=== PATIENT | female | born 1945 | race Caucasian/White ===

== ENCOUNTER → 2017-12-07 09:25 | Outpatient (CLI) | payer MEDICARE, SELFPAY ==
--- NOTE | 2017-12-07 09:30 | US_ITS ---
US transvaginal HISTORY: ITS.REASON: POST MENOPAUSAL BLEEDING,PELVIC PAIN ORDERING PHYSICIAN: Brenden Leary MD PATIENT AGE: 72 years COMPARISON: None FINDINGS: The uterus measures 4.7 x 2 x 3.4 cm with a combined endometrial thickness of 4 mm. Senescent calcification noted around the fundus of the uterus. There is a small amount fluid within the endometrial canal in the lower uterine segment. The left ovary is 1.7 x 1.4 cm. The right ovary is 1.3 x 0.6 cm. No adnexal mass. No cul-de-sac fluid. IMPRESSION: Senescent findings with small uterus and peripheral calcification along the fundus. Small amount fluid is in the lower canal.
== END ==
PROVIDERS: Family Provider Family Medicine; PCP Family Medicine; Visit Provider Family Medicine
DX: N95.0 Postmenopausal bleeding (principal); R10.2 Pelvic and perineal pain
CPT/HCPCS: 76830

== ENCOUNTER → 2017-12-18 11:33 | Outpatient (POV) | payer MEDICARE, SELFPAY ==
[2017-12-18 11:43] VITALS: BP 116/62; PULSE 61; RESP 18; O2SAT 94; BMI 30.9
--- NOTE | 2017-12-18 12:17 | HMH.PAINSOAP ---
[facility] Pain Management SOAP Note Subjective:: Patient is a very pleasant 72-year-old white female who presents today for follow-up after SI joint injections. Patient had 90% relief after her bilateral SI joint injections for 3 months. Patient states in the last 2 weeks her pain is began to return. Patient states that she gets sharp shooting pains in her low back that radiate at times into her thighs. Patient has tenderness over bilateral thighs. Patient has tried physical therapy in the past with no improvement. Patient denies leg weakness however when she does have a sacro-ileitis flareup she feels like legs become weaker. ROS General: no recent weight change, no fever, no sleep disturbances Respiratory: no cough, no shortness of air, no recurring pulmonary infections Cardiovascular/Peripheral Vascular: No chest pain, No palpitations, no edema, no shortness of breath. Gastrointestinal: no incontinence, normal bowel movements reported Genitourinary: no incontinence Musculoskeletal: Sacroiliitis Psychiatric: normal mood/ affect, Neurological: [denies weakness in extremities], [denies balance issues] Objective:: Physical Exam General: Alert and oriented x3, no acute distress, pleasant and cooperative, [on room air] Lungs: Resps E/U, Symmetrical chest expansion, Eyes: PERRL Musculoskeletal: Flexion and extension of lumbar spine somewhat guarded secondary to pain, deep tendon reflexes normal, strength in upper and lower extremities [5/5], slightly antalgic gait noted, positive Be's test bilaterally. Extreme point tenderness over bilateral SI joints Neurological: speech clear, customer care team coach equal, no gross sensory deficits Assessment:: Bilateral sacroiliitis Plan:: We will plan another round of bilateral SI joint injections. Patient has had 80-90% relief for several months after her last set. Patient has tried and failed physical therapy, anti-inflammatories, medications. I will Follow-up with this patient after her injections. This note was dictated using voice recognition software and may contain errors or omissions
--- NOTE | 2017-12-18 12:20 | P.CONS_ITS ---
[facility] Pain Management SOAP Note Subjective:: Patient is a very pleasant 72-year-old white female who presents today for follow-up after SI joint injections. Patient had 90% relief after her bilateral SI joint injections for 3 months. Patient states in the last 2 weeks her pain is began to return. Patient states that she gets sharp shooting pains in her low back that radiate at times into her thighs. Patient has tenderness over bilateral thighs. Patient has tried physical therapy in the past with no improvement. Patient denies leg weakness however when she does have a sacro- ileitis flareup she feels like legs become weaker. ROS General: no recent weight change, no fever, no sleep disturbances Respiratory: no cough, no shortness of air, no recurring pulmonary infections Cardiovascular/Peripheral Vascular: No chest pain, No palpitations, no edema, no shortness of breath. Gastrointestinal: no incontinence, normal bowel movements reported Genitourinary: no incontinence Musculoskeletal: Sacroiliitis Psychiatric: normal mood/ affect, Neurological: [denies weakness in extremities], [denies balance issues] Objective:: Physical Exam General: Alert and oriented x3, no acute distress, pleasant and cooperative, [ on room air] Lungs: Resps E/U, Symmetrical chest expansion, Eyes: PERRL Musculoskeletal: Flexion and extension of lumbar spine somewhat guarded secondary to pain, deep tendon reflexes normal, strength in upper and lower extremities [5/5], slightly antalgic gait noted, positive Be's test bilaterally. Extreme point tenderness over bilateral SI joints Neurological: speech clear, turret lathe machinist equal, no gross sensory deficits Assessment:: Bilateral sacroiliitis Plan:: We will plan another round of bilateral SI joint injections. Patient has had 80 -90% relief for several months after her last set. Patient has tried and failed physical therapy, anti-inflammatories, medications. I will Follow-up with this patient after her injections. This note was dictated using voice recognition software and may contain errors or omissions
== END ==
PROVIDERS: Family Provider Family Medicine; PCP Family Medicine; Visit Provider Clinical Nurse Specialist Family Health
DX: M46.1 Sacroiliitis, not elsewhere classified (principal)
CPT/HCPCS: 99212

== ENCOUNTER → 2018-01-02 16:24 | Outpatient (CLI) | payer MEDICARE, SELFPAY ==
--- NOTE | 2018-01-02 16:29 | MM_ITS ---
MM Dig screening mamm BI w/CAD CAD Screening COMPARISON: Digital mammograms 12/28/2015 and 12/29/2016 INDICATION: Is a history of breast cancer patient's aunt. There has been previous cyst aspiration left breast. TECHNIQUE: Standard CC and MLO images were obtained. R2 CAD reviewed. FINDINGS: The breasts are composed primarily of fat with scattered fibroglandular densities throughout both breasts. There are couple benign-appearing calcifications in each breast. There is a mole marker on each breast. There is no suspicious lesion and no suspicious microcalcifications. IMPRESSION: Fiber fatty parenchyma no suspicious lesion seen BI-RADS Category: 2 Benign Finding(s) RECOMMENDED FOLLOW-UP: 1YR - 1 YEAR FOLLOW-UP (A letter has been sent to the patient regarding results of the study.)
== END ==
PROVIDERS: Family Provider Family Medicine; PCP Family Medicine; Visit Provider Family Medicine
DX: Z12.31 Encounter for screening mammogram for malignant neoplasm of breast (principal)
CPT/HCPCS: 77067

== ENCOUNTER 2018-01-05 13:08 | Day surgery (SDC) | payer MEDICARE, SELFPAY ==
[2018-01-05 13:17] VITALS: BP 123/51; PULSE 70; RESP 20; TEMP 36.1; O2SAT 97; BMI 29.7
[2018-01-05 14:22] VITALS: BP 125/79; PULSE 69; RESP 18
--- NOTE | 2018-01-05 14:22 | HMH.PMPROC ---
- Procedure Date: 01/05/18 Time: 14:22 Anesthesiologist:: Pranay Dunn MD Complications:: None Pre-procedure Diagnosis:: Sacroiliitis Post-procedure Diagnosis:: Same Indications for Procedure:: This patient is a pleasant 72-year-old white female who we are treating for bilateral hip pain. She got 90% relief after previous bilateral SI joint injections for 3 months. Her pain is just now started to return over both hips. We will do repeat bilateral SI joint injections under fluoroscopy today. Procedure Details:: B/L SI joint injection under fluoroscopy Informed consent was obtained and the risks and benefits of the procedure was explained to the patient. The patient was taken to the procedure room and placed prone on the procedure table. The patient was prepped using ChloraPrep. The skin and subcutaneous tissues overlying the SI joints were anesthetized using lidocaine. I placed a 22-gauge needle first in the left SI joint and second in the right SI joint. Needle placement was confirmed with dye. After this we injected 5 mL bupivacaine 0.25% and Depo-Medrol 40 mg into each SI joint. Patient tolerated the procedure well with no complication. Plan and Disposition:: We will follow-up with her in 2 weeks. We will reevaluate her symptoms at that time.
[2018-01-05 14:24] VITALS: BP 140/77; PULSE 66; RESP 18
[2018-01-05 14:34] VITALS: BP 139/58; PULSE 64; O2SAT 94
== END 2018-01-05 14:35 | disposition home or self-care (01) ==
LOC: SC.PAINP 13:09
PROVIDERS: Family Provider Family Medicine; PCP Family Medicine; Visit Provider Anesthesiology
DX: M46.1 Sacroiliitis, not elsewhere classified (principal)
CPT/HCPCS: 27096; G0260; J1030

== ENCOUNTER → 2018-01-22 10:25 | Outpatient (POV) | payer MEDICARE, SELFPAY ==
[2018-01-22 11:03] VITALS: BP 150/72; PULSE 71; RESP 18; TEMP 36.4; O2SAT 96; BMI 29.7
--- NOTE | 2018-01-22 12:47 | HMH.PAINSOAP ---
[facility] Pain Management SOAP Note Subjective:: She is a pleasant 72-year-old white female who presents today after bilateral SI joint injections. Patient states that she had several weeks relief. Patient is having increased signal left SI joint pain along with left piriformis pain. Patient is still doing well after her lumbar epidural steroid injections. Patient is interested in setting up some injections in the future. Patient states that her pain right now is a 3 out of 10 however when she is working in the house it does become worse. ROS General: no recent weight change, no fever, no sleep disturbances Respiratory: no cough, no shortness of air, no recurring pulmonary infections Cardiovascular/Peripheral Vascular: No chest pain, No palpitations, no edema, no shortness of breath. Gastrointestinal: no incontinence, normal bowel movements reported Genitourinary: no incontinence Musculoskeletal: Back pain, bilateral SI joint pain, left piriformis pain Psychiatric: normal mood/ affect, Neurological: [denies weakness in extremities], [denies balance issues] Objective:: Physical Exam General: Alert and oriented x3, no acute distress, pleasant and cooperative, [on room air] Lungs: Resps E/U, Symmetrical chest expansion, Eyes: PERRL Musculoskeletal: Flexion and extension of lumbar spine somewhat guarded secondary to pain, deep tendon reflexes normal, strength in upper and lower extremities [5/5], slightly antalgic gait noted, extreme point tenderness over left SI and left piriformis. Positive Be's test on the left side Neurological: speech clear, medical billing associate equal, no gross sensory deficits Assessment:: Piriformis syndrome, sacroiliitis, degenerative disc disease of the lumbar spine Plan:: We will schedule a left SI joint injection along with a left piriformis injection I believe that this would be beneficial for the patient. Patient has had good relief with injections in the past. Of note she is being checked for uterine cancer. We will continue to monitor this. Patient's tried and failed physical therapy, anti-inflammatories, medications. This note was dictated using voice recognition software and may contain errors or omissions
--- NOTE | 2018-01-22 12:50 | P.CONS_ITS ---
[facility] Pain Management SOAP Note Subjective:: She is a pleasant 72-year-old white female who presents today after bilateral SI joint injections. Patient states that she had several weeks relief. Patient is having increased signal left SI joint pain along with left piriformis pain. Patient is still doing well after her lumbar epidural steroid injections. Patient is interested in setting up some injections in the future. Patient states that her pain right now is a 3 out of 10 however when she is working in the house it does become worse. ROS General: no recent weight change, no fever, no sleep disturbances Respiratory: no cough, no shortness of air, no recurring pulmonary infections Cardiovascular/Peripheral Vascular: No chest pain, No palpitations, no edema, no shortness of breath. Gastrointestinal: no incontinence, normal bowel movements reported Genitourinary: no incontinence Musculoskeletal: Back pain, bilateral SI joint pain, left piriformis pain Psychiatric: normal mood/ affect, Neurological: [denies weakness in extremities], [denies balance issues] Objective:: Physical Exam General: Alert and oriented x3, no acute distress, pleasant and cooperative, [ on room air] Lungs: Resps E/U, Symmetrical chest expansion, Eyes: PERRL Musculoskeletal: Flexion and extension of lumbar spine somewhat guarded secondary to pain, deep tendon reflexes normal, strength in upper and lower extremities [5/5], slightly antalgic gait noted, extreme point tenderness over left SI and left piriformis. Positive Be's test on the left side Neurological: speech clear, computer equipment repairer equal, no gross sensory deficits Assessment:: Piriformis syndrome, sacroiliitis, degenerative disc disease of the lumbar spine Plan:: We will schedule a left SI joint injection along with a left piriformis injection I believe that this would be beneficial for the patient. Patient has had good relief with injections in the past. Of note she is being checked for uterine cancer. We will continue to monitor this. Patient's tried and failed physical therapy, anti-inflammatories, medications. This note was dictated using voice recognition software and may contain errors or omissions
== END ==
PROVIDERS: Family Provider Family Medicine; PCP Family Medicine; Visit Provider Clinical Nurse Specialist Family Health
DX: G57.00 Lesion of sciatic nerve, unspecified lower limb (principal); M46.1 Sacroiliitis, not elsewhere classified
CPT/HCPCS: 99212

== ENCOUNTER → 2018-02-19 15:15 | Outpatient (POV) | payer MEDICARE, SELFPAY ==
[2018-02-19 15:23] VITALS: BP 126/42; PULSE 71; RESP 18; TEMP 36.7; O2SAT 98; BMI 29.7
--- NOTE | 2018-02-19 15:28 | HMH.PAINSOAP ---
[facility] Pain Management SOAP Note Subjective:: Patient is a pleasant 72-year-old white female who presents today for follow-up after left SI and left piriformis injection. Patient states she is 90% better. Patient rates her pain a 1 out of 10 today. She states that she has had a slight increase after her birthday alliance party that she hosted yesterday. Patient is doing well overall. Patient states she would like to follow-up on an as-needed basis. ROS General: no recent weight change, no fever, no sleep disturbances Respiratory: no cough, no shortness of air, no recurring pulmonary infections Cardiovascular/Peripheral Vascular: No chest pain, No palpitations, no edema, no shortness of breath. Gastrointestinal: no incontinence, normal bowel movements reported Genitourinary: no incontinence Musculoskeletal: Piriformis pain, left SI joint pain Psychiatric: normal mood/ affect Neurological: [denies weakness in extremities], [denies balance issues] Objective:: Physical Exam General: Alert and oriented x3, no acute distress, pleasant and cooperative, [on room air] Lungs: Resps E/U, Symmetrical chest expansion, Eyes: PERRL Musculoskeletal: Flexion and extension of lumbar spine somewhat guarded secondary to pain, deep tendon reflexes normal, strength in upper and lower extremities [5/5], slightly antalgic gait noted, tenderness over the left SI joint and left piriformis. Neurological: speech clear, associate professor of geography equal, no gross sensory deficits Assessment:: Sacroiliitis and piriformis syndrome, degenerative disc disease of the lumbar spine with lumbar radiculopathy Plan:: We will follow-up with this patient on an as-needed basis. Patient will call us if she feels like she needs another injection. This note was dictated using voice recognition software and may contain errors or omissions
== END ==
PROVIDERS: Family Provider Family Medicine; PCP Family Medicine; Visit Provider Clinical Nurse Specialist Family Health
DX: G57.00 Lesion of sciatic nerve, unspecified lower limb (principal)
CPT/HCPCS: 99212

== ENCOUNTER → 2018-05-25 08:05 | Outpatient (CLI) | payer MEDICARE, SELFPAY ==
--- NOTE | 2018-05-25 08:14 | CT_ITS ---
CT lung screening EXAM: CT LUNG LOW DOSE WO CONTRAST HISTORY: 72 year old female with history of tobacco abuse/nicotine dependence prominent with 8 years ago, asymptomatic ITS.REASON: CURRENT TOBACOO USE ORDERING PHYSICIAN: Roly Gilbert MD PATIENT AGE: 72 years COMPARISON: None TECHNIQUE: The exam was performed on a [employer] Speed [address] scanner using 2.90 mGy CTDI. A low dose helical CT CHEST was performed on a multi-detector scanner. All CT scans at the facility use one or more dose reduction, viz: automated exposure control, ma/kV adjustment per patient size (including targeted exams where dose is matched to indication, i.e. head), or iterative reconstruction technique. The LDCT was performed in a facility that meets the criteria for the screening program. Data regarding this exam was submitted to ACR which is an approved registry. The order for this exam indicates that it came as a result of a lung cancer screening counseling shard decision-making visit that included all the elements required of such a visit including smoking cessation. The radiologist interpreting this exam meets the CMS criteria for the LDCT lung cancer screening program. The exam is reported using the Lung-RADS classification scale and reported to the ACR registry. NOTE: This study was performed for the specific purposes of lung cancer screening and is not an alternative to diagnostic chest CT. RADIATION DOSE: CTDI vol(CT dose Index-volume) = 2.90mG DLP (Dose Length Product) = 106.95 mGcm FINDINGS: There are centrilobular emphysematous changes along with hyperinflation and bronchial thickening consistent with obstructive chronic bronchitis. There is evidence of old granulomatous disease. Within the apex there are irregular opacities measuring up to 10 x 7 mm on the right probably related to scarring. 3 mm right perihilar nodule is present. 3 mm nodule right upper lobe superiorly and posteriorly. IMPRESSION: 1. Lung RADS Category: 3, probably benign 2. Other findings: Centrilobular emphysema, old granulomatous disease RECOMMENDATIONS: 6 month LDCT follow-up
== END ==
PROVIDERS: Family Provider Family Medicine; PCP Family Medicine; Visit Provider Family Medicine
DX: Z12.2 Encounter for screening for malignant neoplasm of respiratory organs (principal); Z87.891 Personal history of nicotine dependence

== ENCOUNTER → 2018-06-25 11:25 | Outpatient (POV) | payer MEDICARE, SELFPAY ==
[2018-06-25 12:09] VITALS: BP 132/55; PULSE 63; RESP 18; O2SAT 98; BMI 29.2
--- NOTE | 2018-06-25 12:55 | HMH.PAINSOAP ---
[facility] Pain Management SOAP Note Subjective:: Patient is a pleasant 72-year-old white female who presents today for follow-up. Patient is having increased bilateral SI joint pain. Patient has had SI joint injections in the past and states that she gets up to 90% relief for 3-5 months. Patient would like to repeat this. Patient states otherwise she is overall doing well.. ROS General: no recent weight change, no fever, no sleep disturbances Respiratory: no cough, no shortness of air, no recurring pulmonary infections Cardiovascular/Peripheral Vascular: No chest pain, No palpitations, no edema, no shortness of breath. Gastrointestinal: no incontinence, normal bowel movements reported Genitourinary: no incontinence Musculoskeletal: SI joint pain Psychiatric: normal mood/ affect Neurological: [denies weakness in extremities], [denies balance issues] Objective:: Physical Exam General: Alert and oriented x3, no acute distress, pleasant and cooperative, [on room air] Lungs: Resps E/U, Symmetrical chest expansion, Eyes: PERRL Musculoskeletal: Flexion and extension of lumbar spine somewhat guarded secondary to pain, deep tendon reflexes normal, strength in upper and lower extremities [5/5], slightly antalgic gait noted, positive Be's test bilaterally, extreme point tenderness over bilateral SI joint Neurological: speech clear, deposit clerk equal, no gross sensory deficits Assessment:: Sacroiliitis Plan:: We will schedule bilateral SI joint injections for the patient. Patient does well with these for several months. Patient is not on any anticoagulation therapy. Patient's tried and failed physical therapy however she is still doing a home stretching routine. We will and to schedule these injections every 4 months after her follow-up. This note was dictated using voice recognition software and may contain errors or omissions
--- NOTE | 2018-06-25 12:58 | P.CONS_ITS ---
[facility] Pain Management SOAP Note Subjective:: Patient is a pleasant 72-year-old white female who presents today for follow-up. Patient is having increased bilateral SI joint pain. Patient has had SI joint injections in the past and states that she gets up to 90% relief for 3-5 months. Patient would like to repeat this. Patient states otherwise she is overall doing well.. ROS General: no recent weight change, no fever, no sleep disturbances Respiratory: no cough, no shortness of air, no recurring pulmonary infections Cardiovascular/Peripheral Vascular: No chest pain, No palpitations, no edema, no shortness of breath. Gastrointestinal: no incontinence, normal bowel movements reported Genitourinary: no incontinence Musculoskeletal: SI joint pain Psychiatric: normal mood/ affect Neurological: [denies weakness in extremities], [denies balance issues] Objective:: Physical Exam General: Alert and oriented x3, no acute distress, pleasant and cooperative, [on room air] Lungs: Resps E/U, Symmetrical chest expansion, Eyes: PERRL Musculoskeletal: Flexion and extension of lumbar spine somewhat guarded secondary to pain, deep tendon reflexes normal, strength in upper and lower extremities [5/5], slightly antalgic gait noted, positive Be's test bilaterally, extreme point tenderness over bilateral SI joint Neurological: speech clear, cook night equal, no gross sensory deficits Assessment:: Sacroiliitis Plan:: We will schedule bilateral SI joint injections for the patient. Patient does well with these for several months. Patient is not on any anticoagulation therapy. Patient's tried and failed physical therapy however she is still doing a home stretching routine. We will and to schedule these injections every 4 months after her follow-up. This note was dictated using voice recognition software and may contain errors or omissions
== END ==
PROVIDERS: Family Provider Family Medicine; PCP Family Medicine; Visit Provider Clinical Nurse Specialist Family Health
DX: M46.1 Sacroiliitis, not elsewhere classified (principal)
CPT/HCPCS: 99213

== ENCOUNTER → 2018-08-14 09:39 | Outpatient (POV) | payer MEDICARE, SELFPAY ==
[2018-08-14 09:50] VITALS: BP 126/50; PULSE 59; RESP 18; O2SAT 98; BMI 29.7
--- NOTE | 2018-08-14 12:32 | HMH.PAINSOAP ---
[facility] Pain Management SOAP Note Subjective:: Patient is a pleasant 73-year-old white female who presents today for a side joint injection follow-up. Patient had good relief until last week. Patient states that overall she is doing well however she is having quite a bit of left hip pain. Patient has tried and failed physical therapy and anti-inflammatory however she is continuing a home stretching program. She rates her pain today about a 5 out of 10 in her left side. ROS General: no recent weight change, no fever, no sleep disturbances Respiratory: no cough, no shortness of air, no recurring pulmonary infections Cardiovascular/Peripheral Vascular: No chest pain, No palpitations, no edema, no shortness of breath. Gastrointestinal: no incontinence, normal bowel movements reported Genitourinary: no incontinence Musculoskeletal: Hip pain, SI joint pain Psychiatric: normal mood/ affect Neurological: [denies weakness in extremities], [denies balance issues] Objective:: Physical Exam General: Alert and oriented x3, no acute distress, pleasant and cooperative, [on room air] Lungs: Resps E/U, Symmetrical chest expansion, Eyes: PERRL Musculoskeletal: Flexion and extension of lumbar spine somewhat guarded secondary to pain, deep tendon reflexes normal, strength in upper and lower extremities [5/5], slightly antalgic gait noted, positive Be's test on the left side, extreme point tenderness over left greater trochanteric bursa Neurological: speech clear, exchange specialist equal, no gross sensory deficits Assessment:: Sacroiliitis, bursitis Plan:: We will left SI joint injection left greater trochanteric bursa injection for the patient. If the patient does not get much relief from this. We may get an MRI to help determine any low back pathology for the patient. This note was dictated using voice recognition software and may contain errors or omissions
--- NOTE | 2018-08-14 12:38 | P.CONS_ITS ---
[facility] Pain Management SOAP Note Subjective:: Patient is a pleasant 73-year-old white female who presents today for a side joint injection follow-up. Patient had good relief until last week. Patient states that overall she is doing well however she is having quite a bit of left hip pain. Patient has tried and failed physical therapy and anti-inflammatory however she is continuing a home stretching program. She rates her pain today about a 5 out of 10 in her left side. ROS General: no recent weight change, no fever, no sleep disturbances Respiratory: no cough, no shortness of air, no recurring pulmonary infections Cardiovascular/Peripheral Vascular: No chest pain, No palpitations, no edema, no shortness of breath. Gastrointestinal: no incontinence, normal bowel movements reported Genitourinary: no incontinence Musculoskeletal: Hip pain, SI joint pain Psychiatric: normal mood/ affect Neurological: [denies weakness in extremities], [denies balance issues] Objective:: Physical Exam General: Alert and oriented x3, no acute distress, pleasant and cooperative, [on room air] Lungs: Resps E/U, Symmetrical chest expansion, Eyes: PERRL Musculoskeletal: Flexion and extension of lumbar spine somewhat guarded secondary to pain, deep tendon reflexes normal, strength in upper and lower extremities [5/5], slightly antalgic gait noted, positive Be's test on the left side, extreme point tenderness over left greater trochanteric bursa Neurological: speech clear, calibration laboratory technician equal, no gross sensory deficits Assessment:: Sacroiliitis, bursitis Plan:: We will left SI joint injection left greater trochanteric bursa injection for the patient. If the patient does not get much relief from this. We may get an MRI to help determine any low back pathology for the patient. This note was dictated using voice recognition software and may contain errors or omissions
== END ==
PROVIDERS: PCP Family Medicine; Visit Provider Clinical Nurse Specialist Family Health
DX: M46.1 Sacroiliitis, not elsewhere classified (principal); M71.9 Bursopathy, unspecified
CPT/HCPCS: 99213

== ENCOUNTER → 2018-09-25 09:51 | Outpatient (POV) | payer MEDICARE, SELFPAY ==
[2018-09-25 10:31] VITALS: BP 128/43; PULSE 60; RESP 18; O2SAT 99; BMI 29.2
--- NOTE | 2018-09-25 10:33 | HMH.PAINSOAP ---
[facility] Pain Management SOAP Note Subjective:: Patient is a pleasant 73-year-old white female who presents today after left SI joint injection and left greater trochanteric bursa injection. She rates her pain a 0 out of 10 today. Patient has been getting these injections every 2 months and has done well with this. ROS General: no recent weight change, no fever, no sleep disturbances Respiratory: no cough, no shortness of air, no recurring pulmonary infections Cardiovascular/Peripheral Vascular: No chest pain, No palpitations, no edema, no shortness of breath. Gastrointestinal: no incontinence, normal bowel movements reported Genitourinary: no incontinence Musculoskeletal: Back pain, SI joint pain Psychiatric: normal mood/ affect, Neurological: [denies weakness in extremities], [denies balance issues] Objective:: Physical Exam General: Alert and oriented x3, no acute distress, pleasant and cooperative, [on room air] Lungs: Resps E/U, Symmetrical chest expansion, Eyes: PERRL Musculoskeletal: Flexion and extension of lumbar spine somewhat guarded secondary to pain, deep tendon reflexes normal, strength in upper and lower extremities [5/5], antalgic gait noted, left Be's test positive, point tenderness over the greater trochanteric bursa on the left side Neurological: speech clear, dispatch clerk equal, no gross sensory deficits Assessment:: Sacroiliitis, bursitis Plan:: We will see the patient back in 2-1/2 months and give her another left SI joint injection left greater trochanteric bursa. Patient's been instructed to call the office if she has any issues prior to her next appointment. This note was dictated using voice recognition software and may contain errors or omissions
--- NOTE | 2018-09-25 10:36 | P.CONS_ITS ---
[facility] Pain Management SOAP Note Subjective:: Patient is a pleasant 73-year-old white female who presents today after left SI joint injection and left greater trochanteric bursa injection. She rates her pain a 0 out of 10 today. Patient has been getting these injections every 2 months and has done well with this. ROS General: no recent weight change, no fever, no sleep disturbances Respiratory: no cough, no shortness of air, no recurring pulmonary infections Cardiovascular/Peripheral Vascular: No chest pain, No palpitations, no edema, no shortness of breath. Gastrointestinal: no incontinence, normal bowel movements reported Genitourinary: no incontinence Musculoskeletal: Back pain, SI joint pain Psychiatric: normal mood/ affect, Neurological: [denies weakness in extremities], [denies balance issues] Objective:: Physical Exam General: Alert and oriented x3, no acute distress, pleasant and cooperative, [on room air] Lungs: Resps E/U, Symmetrical chest expansion, Eyes: PERRL Musculoskeletal: Flexion and extension of lumbar spine somewhat guarded secondary to pain, deep tendon reflexes normal, strength in upper and lower extremities [5/5], antalgic gait noted, left Be's test positive, point tenderness over the greater trochanteric bursa on the left side Neurological: speech clear, hand shaper equal, no gross sensory deficits Assessment:: Sacroiliitis, bursitis Plan:: We will see the patient back in 2-1/2 months and give her another left SI joint injection left greater trochanteric bursa. Patient's been instructed to call the office if she has any issues prior to her next appointment. This note was dictated using voice recognition software and may contain errors or omissions
== END ==
PROVIDERS: PCP Family Medicine; Visit Provider Clinical Nurse Specialist Family Health
DX: M46.1 Sacroiliitis, not elsewhere classified (principal); M71.9 Bursopathy, unspecified
CPT/HCPCS: 99213

== ENCOUNTER → 2018-10-15 13:22 | Outpatient (CLI) | payer MEDICARE, SELFPAY ==
--- NOTE | 2018-10-15 13:25 | MR_ITS ---
MR lumbar spine wo con, No MR 3-d myelogram/MRCP HISTORY: Low back pain with left leg pain and tingling ITS.REASON: LUMBAR SPINAL STENOSIS ORDERING PHYSICIAN: Roly Gilbert MD PATIENT AGE: 73 years Comparison: 12/27/2013 TECHNIQUE: Standard multiplanar multiecho sequences are performed without contrast. 3-D MIP and myelographic images are also rendered and reviewed FINDINGS: There is normal alignment. The spinal cord in that the L1-L2 level. In the lower thoracic spine there is degenerative disc disease at T11-T12 with minimal bulging disc with mild kyphosis. A Schmorl's node is present along the superior endplate of T11. A Schmorl's node is present along the superior endplate of T12. There is mild chronic wedging of T11 and T12. Minimal bulging disc at T12-L1. L1-L2: Unremarkable. L2-L3: Minimal concentric bulging disc along with facet and ligamentum flavum hypertrophy with mild bilateral lateral recess and mild right foraminal narrowing. L3-L4: Unremarkable. L4-L5: Mild concentric bulging disc with minimal right paracentral disc protrusion. Moderate facet and ligamentum flavum hypertrophy noted with moderate bilateral lateral recess and foraminal narrowing slightly greater on the left. L5-S1: Mild facet hypertrophic change with moderate left foraminal narrowing. No bony canal stenosis or extruded herniated disc and no significant change compared to the previous exam IMPRESSION: 1. Degenerative disc disease at T11-T12 with bulging disc and kyphosis with chronic wedging of T11 and T12. Mild bulging disc at T12-L1 2. L2-L3: Minimal concentric bulging disc along with facet and ligamentum flavum hypertrophy with mild bilateral lateral recess and mild right foraminal narrowing 3. Mild concentric bulging disc at L4-L5 with minimal right paracentral disc protrusion. Moderate facet and ligamentum flavum hypertrophy noted with moderate bilateral lateral recess and foraminal narrowing slightly greater on the left. Moderate left-sided foraminal narrowing at L5-S1 from facet hypertrophic change 4. No disc herniation or canal stenosis
== END ==
PROVIDERS: PCP Family Medicine; Visit Provider Family Medicine
DX: M48.061 Spinal stenosis, lumbar region without neurogenic claudication (principal)
CPT/HCPCS: 72148; 76376

== ENCOUNTER → 2018-11-28 13:52 | Outpatient (CLI) | payer MEDICARE, SELFPAY ==
--- NOTE | 2018-11-28 14:28 | CT_ITS ---
CT lung screening EXAM: CT LUNG LOW DOSE WO CONTRAST HISTORY: 30 pack-year smoking history asymptomatic for lung cancer ITS.REASON: TOBACCO USE ORDERING PHYSICIAN: Roly Gilbert MD PATIENT AGE: 73 years COMPARISON: 05/25/2018 TECHNIQUE: The exam was performed on a GE Light Speed [address] scanner using 2.90 mGy CTDI. A low dose helical CT CHEST was performed on a multi-detector scanner. All CT scans at the facility use one or more dose reduction, viz: automated exposure control, ma/kV adjustment per patient size (including targeted exams where dose is matched to indication, i.e. head), or iterative reconstruction technique. The LDCT was performed in a facility that meets the criteria for the screening program. Data regarding this exam was submitted to ACR which is an approved registry. The order for this exam indicates that it came as a result of a lung cancer screening counseling shard decision-making visit that included all the elements required of such a visit including smoking cessation. The radiologist interpreting this exam meets the CMS criteria for the LDCT lung cancer screening program. The exam is reported using the Lung-RADS classification scale and reported to the ACR registry. NOTE: This study was performed for the specific purposes of lung cancer screening and is not an alternative to diagnostic chest CT. RADIATION DOSE: CTDI vol(CT dose Index-volume) = 2.90mG DLP (Dose Length Product) = 102.00 mGcm FINDINGS: Centrilobular emphysematous changes. Scattered calcified granulomas are noted. No new nodules. No malignant appearing nodules. There is hyperinflation with bronchial thickening consistent with COPD. There is a small hiatal hernia. IMPRESSION: 1. Lung RADS Category: 2, benign 2. Other findings: Centrilobular emphysema, old granulomatous disease RECOMMENDATIONS: 12 month LDCT follow-up
== END ==
PROVIDERS: PCP Family Medicine; Visit Provider Family Medicine
DX: Z12.2 Encounter for screening for malignant neoplasm of respiratory organs (principal); Z87.891 Personal history of nicotine dependence; R91.8 Other nonspecific abnormal finding of lung field

== ENCOUNTER → 2019-01-07 08:15 | Outpatient (CLI) | payer MEDICARE, SELFPAY ==
--- NOTE | 2019-01-07 09:00 | MM_ITS ---
MM Dig screening mamm BI w/CAD CAD Screening INDICATION: There is a history of breast cancer patient's aunt. There is been previous cyst aspiration left breast. ORDERING PHYSICIAN: Roly Gilbert MD PATIENT AGE: 73 years COMPARISON: And 12/29/2016 TECHNIQUE: Standard CC and MLO images were obtained. R2 CAD reviewed. FINDINGS: The breasts are composed primarily of fat. There is minimal scattered fibroglandular densities in each breast. There is a subtle and questionable area of asymmetric density just deep to the nipple right breast and additional spot compression view was obtained and it appears to compress out and likely secondary to asymmetric glandular tissue. There are couple benign appearing microtest stations in each breast. There is no suspicious lesion and there are no suspicious microcalcifications. There is minimal vascular calcification in each breast. IMPRESSION: Fatty type breast parenchyma with no suspicious lesion seen BI-RADS Category: 2 Benign Finding(s) RECOMMENDED FOLLOW-UP: 1YR - 1 YEAR FOLLOW-UP (A letter has been sent to the patient regarding results of the study.)
== END ==
PROVIDERS: PCP Family Medicine; Visit Provider Family Medicine
DX: Z12.31 Encounter for screening mammogram for malignant neoplasm of breast (principal)
CPT/HCPCS: 77067

== ENCOUNTER → 2019-12-19 07:46 | Outpatient (CLI) | payer MEDICARE, SELFPAY ==
--- NOTE | 2019-12-19 08:30 | MM_ITS ---
PROCEDURE: MM DIG SCREENING MAMM BI W/CAD BILATERAL DIGITAL BREAST TOMOSYNTHESIS INCLUDED Patient Age:74Y CLINICAL INDICATION: SCREENING 74-year-old. No hormones but no new complaints. Noncontributory family history. Previous left breast cyst aspiration COMPARISON: [facility] DIGITAL MAMM-SCREEN BILATERAL from 12/19/2011 [facility] DIGITAL MAMM-SCREEN BILATERAL from 12/13/2012 [facility] DIG MAMM-SCREEN FLOR from 12/18/2013 [facility] DIG MAMM-SCREEN FLOR from 12/23/2014 [facility] DIG MAMM-SCREEN FLOR from 12/28/2015 [facility] DIG MAMM-SCREEN FLOR W/CAD from 12/29/2016 [facility] MM Dig screening mamm BI w/CAD from 01/02/2018 DIG MAMM-SCREEN FLOR from 01/07/2019 TECHNIQUE: Standard CC and MLO images were obtained. R2 CAD reviewed. Bilateraltomosynthesis included FINDINGS: Lower density breast with minimal residual fibroglandular elements, and generalized fatty replacement No new dominant or suspicious mass. Both right and left breast appear stable when compared to multiple previous studies with no significant new area of concern either breast. Bilateral follow-up 1 year recommended Left breast IMPRESSION: Stable bilateral mammogram. Low-density breast with no new areas of concern. Bilateral follow-up 1 year. On BI-RAD Category: 1 Negative FOLLOW-UP: 1YR 1 Year Follow-up (A letter has been sent to the patient regarding results of the study.) Dictated by: Mac Linares MD 12/24/2019 08:41 Electronically signed by Mac Linares MD in [place] 12/24/2019 08:41
== END ==
PROVIDERS: PCP Family Medicine; Visit Provider Family Medicine
DX: Z12.31 Encounter for screening mammogram for malignant neoplasm of breast (principal)
CPT/HCPCS: 77063; 77067

== ENCOUNTER → 2020-09-14 10:28 | Outpatient (CLI) | payer MEDICARE, SELFPAY | PROVIDERS: PCP Family Medicine; Visit Provider Specialist | DX: R42 Dizziness and giddiness (principal) | CPT/HCPCS: 93225; 93226 ==

== ENCOUNTER → 2020-12-25 14:48 | Outpatient (CLI) | payer MEDICARE, SELFPAY ==
--- NOTE | 2020-12-25 14:54 | MM_ITS ---
PROCEDURE: MM DIG SCREENING MAMM BI W/CAD Digital Breast Tomosynthesis Included CLINICAL INDICATION: SCREENING There is a history of breast cancer patient's maternal aunt. There has been a previous cyst aspiration left breast with benign findings. COMPARISON: [facility] MM Dig screening mamm BI w/CAD from 01/02/2018 MG DIG MAMM-SCREEN FLOR from 01/07/2019 MG MM DIG SCREENING MAMM BI W/CAD from 12/19/2019 TECHNIQUE: Standard CC and MLO images and 3D Tomosynthesis was obtained. R2 CAD reviewed. FINDINGS: Scattered fibroglandular densities are seen in both breasts on a background of fatty breast parenchyma. There is faint arterial calcification in each breast. There is a mole marker left breast. There are couple of benign-appearing microcalcifications in each breast. There is faint arterial calcification in each breast. CAD markings on each breast or due to arterial calcification. There is no suspicious lesion and no suspicious microcalcifications. The nipples are slightly inverted bilaterally but this has been noted previously. IMPRESSION: Fibrofatty parenchyma with no suspicious lesions seen BI-RAD Category: 2 Benign Finding(s) FOLLOW-UP: 1YR 1 Year Follow-up (A letter has been sent to the patient regarding results of the study.) Dictated by: Dr. Woodrow Rosa MD 01/02/2021 10:30 Dr. Woodrow Rosa MD in [place] 01/02/2021 10:30
== END ==
PROVIDERS: PCP Family Medicine; Visit Provider Family Medicine
DX: Z12.31 Encounter for screening mammogram for malignant neoplasm of breast (principal)
CPT/HCPCS: 77063; 77067

== ENCOUNTER → 2021-03-02 15:58 | Outpatient (CLI) | payer MEDICARE, SELFPAY ==
--- NOTE | 2021-03-02 16:02 | XR_ITS ---
PROCEDURE: XR CERVICAL SPINE 5V CLINICAL INDICATION: CERVICAL SPINE ARTHRITIS COMPARISON: No exams were available for comparison FINDINGS: No fracture or dislocation. Degenerative disc disease is present at C5-C6 and C6-C7. Facet and uncovertebral hypertrophy is present causing narrowing of the foramen on the right at C3-C4 C4-C5 and on the left at C3-C4 and C4-C5. Carotid artery stent is noted left. Facet hypertrophic changes are present greater on the left from C3-C6. No acute fracture or dislocation. There is 2 mm anterolisthesis C4 on C5. Other findings:None. IMPRESSION: Cervical spondylosis as described above. Dictated by: Cuco Ferrara MD 03/02/2021 17:13 Cuco Ferrara MD in [place] 03/02/2021 17:13
== END ==
PROVIDERS: PCP Family Medicine; Visit Provider Family Medicine
DX: M47.812 Spondylosis without myelopathy or radiculopathy, cervical region (principal)
CPT/HCPCS: 72050

== ENCOUNTER → 2021-03-18 09:29 | Outpatient (CLI) | payer MEDICARE, SELFPAY ==
--- NOTE | 2021-03-18 | ECG_ITS ---
APPROVED REPORT Exam: Resting ECG HR:52 bpm ECG Measurements Heart Rate 52 AXES MA 158 P 71 QRSd 128 QRS 55 QT 446 T 39 QTc 414 Conclusion Sinus bradycardia with sinus arrhythmia Right bundle branch block Abnormal ECG Electronically signed by : Luis Carlos Watts, 03/19/2021 10:23:31
== END ==
PROVIDERS: PCP Family Medicine; Visit Provider Family Medicine
DX: I49.9 Cardiac arrhythmia, unspecified (principal)
CPT/HCPCS: 93005; 93225; 93226

== ENCOUNTER 2021-04-12 13:59 | Emergency (ER) | payer MEDICARE, SELFPAY ==
[2021-04-12 13:59] VITALS: BP 139/83; PULSE 64; RESP 18; O2SAT 93; BMI 31.1
--- NOTE | 2021-04-12 14:01 | ECG_ITS ---
APPROVED REPORT Exam: Resting ECG HR:63 bpm ECG Measurements Heart Rate 63 AXES NJ 148 P 70 QRSd 118 QRS -25 QT 472 T 45 QTc 483 Conclusion Normal sinus rhythm Right bundle branch block Abnormal ECG Electronically signed by : Luis Carlos Watts, 04/12/2021 17:31:10
--- NOTE | 2021-04-12 14:02 | HMH.EDGENADL ---
ED Disposition Clinical Impression: Polymyalgia rheumatica Disposition: Home, Self-Care Condition on Discharge: Good Referrals: Roly Gilbert MD [Primary Care Provider] - (2-3 days) Time of Disposition: 16:22 - Critical Care Critical Care Time: No Attestation: On , the high probability of a clinically significant, sudden or life threatening deterioration of the following system(s) required my full and direct attention, intervention and personal management. The time I documented below is in addition to time spent performing reported procedures but includes the following listed in this critical care notation. Medical Decision Making - Medical Records Medical records reviewed: Yes: I reviewed the patient's medical records. - Everardo Inquiry Pt receiving controlled substance: No Vital Signs: 04/12/21 13:59 04/12/21 14:15 04/12/21 14:30 Temperature 97.7 F Pulse Rate 64 64 Pulse Rate [Left Radial] 64 Respiratory Rate 18 17 21 Blood Pressure 166/81 H Blood Pressure [Right Arm] 139/83 Blood Pressure Mean [Right Arm] 101 Blood Pressure Source [Right Arm] Automatic Cuff Blood Pressure Position [Right Arm] Sitting 02 Sat by Pulse Oximetry 93 L 100 99 Oxygen Delivery Method Room Air - Lab Data Lab results reviewed: Yes: I reviewed the patient's lab results. Lab Results 04/12/21 14:06: WBC 5.6, RBC 4.12 L, Hgb 11.6 L, Hct 35.1 L, MCV 85.3, MCH 28.1, MCHC 32.9, RDW 14.0, Plt Count 312, MPV 8.8, Neut % (Auto) 64.2, Lymph % (Auto) 24.6, Tate % (Auto) 8.5, Eos % (Auto) 1.8, Baso % (Auto) 0.8, Neut # (Auto) 3.6, Lymph # (Auto) 1.4, Tate # (Auto) 0.5, Eos # (Auto) 0.1, Baso # (Auto) 0.1 04/12/21 14:06: Sodium 142, Potassium 3.7, Chloride 105, Carbon Dioxide 27, Anion Gap 13.7, BUN 31 H, Creatinine 0.90, Estimated Creat Clear 57, Estimated GFR 61, Est GFR ( Amer) 73, Glucose 142 H, Calcium 9.5, Troponin I < 0.01, NT-Pro-B Natriuret Pep 267 04/12/21 14:06: ESR 32 H 04/12/21 14:06: C-Reactive Protein 7.8 H Result diagrams: 04/12/21 14:06 04/12/21 14:06 Orders (Tests/Meds): ED MEDICATIONS Discontinued Medications Generic Name Dose Route Start Last Admin Trade Name Theodora PRN Reason Stop Dose Admin Aspirin 324 mg 04/12/21 14:03 04/12/21 14:31 Aspirin 81mg Chewable Tablet PO 04/12/21 14:04 324 mg ONCE ONE Administration ORDERS Category Date Time Status Troponin I Q3H Lab 04/12/21 17:15 Ordered - ECG Data Tracing #1 I reviewed this ECG and interpreted as documented below: 63 bpm, normal sinus rhythm, right bundle branch block, normal intervals, no ST elevation or depression ECG initial impression date: 04/12/21 ECG initial impression time: 14:02 Medical Decision Narrative: 75oy F presents for chest pain later found to be shoulder girdle pain. Routine cardiac work-up has been initiated and is unremarkable. Chest x-ray is benign. EKG as above. After hearing the patient story and complete my physical exam, I am concerned for polymyalgia rheumatica. Patient's last steroid seems to been around January and was low dose. Discussed care at home and family reports they plan to have the patient stay with them or them stay with her to assist with hygiene, meals. We will treat the patient with prednisone. Patient has an appointment with Dr. Gilbert later this week. Other differential would be frozen shoulder, though I do not know why the patient would suddenly have a frozen shoulder. She also has an elevated ESR and CRP. General Adult HPI - General Stated complaint: cp Time Seen by Provider: 04/12/21 14:02 Mode of Arrival: Wheelchair - History of Present Illness HPI narrative: 75yo F presents to the emergency department with her family secondary to ongoing and progressively worsening shoulder girdle pain. Complains of pain to both shoulders. She has significant pain and limited range of motion with use of bilateral arms, right greater than left. Denies a
--- NOTE | 2021-04-12 14:03 | XR_ITS ---
PROCEDURE: XR CHEST PORTABLE CLINICAL HISTORY: cp Chest pain COMPARISON: No exams were available for comparison FINDINGS: The cardiomediastinal silhouette and pulmonary vascularity are within normal limits. The lungs are clear without infiltrates, suspicious nodules, or pleural effusions. There is an old right 5th rib fracture. IMPRESSION: No acute findings. Dictated by: Cuco Ferrara MD 04/12/2021 15:03 Cuco Ferrara MD in [place] 04/12/2021 15:03
[2021-04-12 14:14] LABS: Basophils # 0.1 K/mm3 (0-0.2); Basophils % 0.8 % (0.1-2.0); Eosinophils # 0.1 K/mm3 (0.0-0.4); Eosinophils % 1.8 % (0.1-12.0); Hematocrit 35.1 % (37.0-47.0); Hemoglobin 11.6 g/dL (12.2-16.2); Lymphocytes # 1.4 K/mm3 (0.7-4.5); Lymphocytes % 24.6 % (10-50); Mean Corpuscular HGB Conc 32.9 g/dL (31.8-35.4); Mean Corpuscular Hemoglobin 28.1 pg (27.0-31.2); Mean Corpuscular Volume 85.3 fl (81-99); Mean Platelet Volume 8.8 fl (7.4-10.4); Monocytes # 0.5 K/mm3 (0.1-1.0); Monocytes % 8.5 % (1.7-9.3); Neutrophils # 3.6 K/mm3 (1.8-7.8); Neutrophils % 64.2 % (37.0-80.0); Platelet Count 312 K/mm3 (142-424); Red Blood Count 4.12 M/mm3 (4.20-5.40); White Blood Count 5.6 K/mm3 (4.8-10.8)
[2021-04-12 14:15] VITALS: PULSE 64; RESP 17; TEMP 36.5; O2SAT 100
[2021-04-12 14:21] LABS: Chloride 105 mmol/L (98-107); Potassium 3.7 mmoL/L (3.5-5.1); Sodium 142 mmol/L (136-145)
[2021-04-12 14:24] LABS: Anion Gap 13.7 mEq/L (5-15); Blood Urea Nitrogen 31 mg/dl (7-17); Calcium 9.5 mg/dl (8.4-10.2); Carbon Dioxide 27 mmol/L (22.0-30.0); Creatinine Clearance Estimated 57 mL/min (50-200); Estimated Glomerular Filt Rate 61 ml/min (>60); GFR (African American) 73 ML/MIN (>60); Glucose 142 mg/dl (74-100)
[2021-04-12 14:30] VITALS: BP 166/81; PULSE 64; RESP 21; O2SAT 99
[2021-04-12 14:33] LABS: NT Pro Brain Natriuretic Pep. 267 pg/mL (0-450)
[2021-04-12 15:29] LABS: Troponin I < 0.01 ng/ml (0.00-0.034)
[2021-04-12 15:32] LABS: C-Reactive Protein 7.8 mg/L (0-4)
[2021-04-12 15:46] LABS: Erythrocyte Sedimentation Rate 32 mm/hr (0-30)
--- NOTE | 2021-04-12 16:06 | PC.NURSE ---
Pt sitting on the side of the bed at this time with family in the room with her. Pt instructed to not get up and she stated she wouldn't
--- NOTE | 2021-04-12 16:11 | PC.NURSE ---
Pt requested to have bp cuff off
[2021-04-12 16:15] VITALS: BP 141/71; PULSE 61; RESP 16; TEMP 36.8; O2SAT 98
== END 2021-04-12 16:33 | disposition home or self-care (01) ==
PROVIDERS: Emergency Provider Family Medicine; PCP Family Medicine
DX: M35.3 Polymyalgia rheumatica (principal); F41.8 Other specified anxiety disorders; E78.5 Hyperlipidemia, unspecified; I10 Essential (primary) hypertension; M81.0 Age-related osteoporosis without current pathological fracture; Z87.891 Personal history of nicotine dependence; Z79.899 Other long term (current) drug therapy; R06.09 Other forms of dyspnea
CPT/HCPCS: 71045; 80048; 83880; 84484; 85025; 85651; 86140; 93005; 99282

== ENCOUNTER → 2021-05-21 09:32 | Outpatient (CLI) | payer MEDICARE, SELFPAY ==
[2021-05-21 09:54] LABS: Basophils # 0.1 K/mm3 (0-0.2); Basophils % 0.6 % (0.1-2.0); Eosinophils # 0.1 K/mm3 (0.0-0.4); Eosinophils % 0.5 % (0.1-12.0); Hematocrit 36.7 % (37.0-47.0); Hemoglobin 12.1 g/dL (12.2-16.2); Lymphocytes # 1.5 K/mm3 (0.7-4.5); Lymphocytes % 13.7 % (10-50); Mean Corpuscular HGB Conc 32.9 g/dL (31.8-35.4); Mean Corpuscular Volume 85.3 fl (81-99); Mean Platelet Volume 8.6 fl (7.4-10.4); Monocytes # 0.4 K/mm3 (0.1-1.0); Monocytes % 3.7 % (1.7-9.3); Neutrophils # 8.9 K/mm3 (1.8-7.8); Neutrophils % 81.4 % (37.0-80.0); Platelet Count 286 K/mm3 (142-424); Red Cell Distribution Width 14.7 % (11.5-17.5)
[2021-05-21 10:24] LABS: Chloride 106 mmol/L (98-107); Potassium 4.9 mmoL/L (3.5-5.1); Sodium 142 mmol/L (136-145)
[2021-05-21 10:27] LABS: Anion Gap 12.9 mEq/L (5-15); Blood Urea Nitrogen 29 mg/dl (7-17); Calcium 9.6 mg/dl (8.4-10.2); Carbon Dioxide 28 mmol/L (22.0-30.0); Estimated Glomerular Filt Rate 54 ml/min (>60); GFR (African American) 65 ML/MIN (>60); Glucose 179 mg/dl (74-100)
== END ==
PROVIDERS: Visit Provider Internal Medicine Cardiovascular Disease
DX: E78.2 Mixed hyperlipidemia (principal); I10 Essential (primary) hypertension; I20.9 Angina pectoris, unspecified; I65.23 Occlusion and stenosis of bilateral carotid arteries; M35.3 Polymyalgia rheumatica; R06.00 Dyspnea, unspecified; Z82.49 Family history of ischemic heart disease and other diseases of the circulatory system; Z95.828 Presence of other vascular implants and grafts; Z98.890 Other specified postprocedural states
CPT/HCPCS: 36415; 80048; 85025; U0003

== ENCOUNTER 2021-05-25 09:03 | Day surgery (SDC) | payer MEDICARE, SELFPAY ==
[2021-05-25] VITALS (7 sets, daily range): BP systolic 130–181; BP diastolic 68–109; PULSE 50–70; RESP 18–20; O2SAT 95; BMI 29.9
--- NOTE | 2021-05-25 | IR_ITS ---
APPROVED REPORT Patient Location: Outpatient PROCEDURES Left heart catheterization Left ventriculogram Selective coronary angiogram Drug-eluting stent deployment to the proximal dominant right coronary artery INDICATION Coronary artery disease, Typical class III-IV angina pectoris Informed consent was obtained prior to the procedure. COMPLICATIONS None Estimated Blood Loss: Less than 10 mls TECHNIQUE One percent lidocaine used to anesthetize the right anterior aspect of the wrist. The right radial artery was accessed via the Seldinger technique. A 6 Czech sheath was placed in the right radial artery. 2.5 mg of verapamil, 800 mcg of nitroglycerin, 1mg Lidocaine and 5000 U Heparin were given through the arterial sheath. The [employer] catheter was also used to perform left heart catheterization, left ventriculogram and selective coronary angiogram. At the end the diagnostic angiogram therapeutic heparin was administered giving a therapeutic ACT and the guide catheter was placed in the right coronary artery followed by a Choice PT extra-support wire. A 3 mm x 22 mm resolute Hodgen stent was deployed at 20 cookie reducing the severe stenosis to 0%. RICKY-3 flow was present before and after the procedure. At the end of the procedure the apparatus was removed the groin was reprepped gloves were changed sheath was removed good hemostasis achieved using TR banding patient was transferred to the postop holding area in stable condition ANGIOGRAPHIC RESULTS The left main artery Normal The left anterior descending artery Is an unusually small vessel and proximally normal with distal 10% stenosis The circumflex artery Is technically nondominant yet still quite large vessel. The vessel is normal The right coronary artery Is dominant and has a proximal concentric 70% stenosis The GLEZ ventriculogram reveals Hyperdynamic at 75 to 80% The left ventricular end-diastolic pressure 20 mmHg IMPRESSION Severe single-vessel coronary disease as described above Successful stenting of proximal dominant right coronary severe disease reduced to 0% with 1 drug-eluting stent Hyperdynamic ventricle consistent with hypertensive heart disease Elevated LVEDP consistent with hypertensive heart disease PLAN 1. Plavix 75 daily plus aspirin 81 mg daily 2. LDL less than 55 3. Cardiac rehabilitation 4. Better control of hypertension 5. Avoidance of tobacco products Electronically signed by : Francisco Al MD 05/25/2021 14:19:57
[2021-05-25 14:37] LABS: CATHL Activated Clotting Time 384 SEC (74-125)
--- NOTE | 2021-05-25 16:35 | HMH.PHACLD ---
[place] has received discharge medication counseling on the following medications: -PLAVIX -ASA -LOSARTAN -ATORVASTATIN -METOPROLOL
== END 2021-05-25 16:53 | disposition home or self-care (01) ==
LOC: CATHLAB 09:05
PROVIDERS: PCP Family Medicine; Visit Provider Internal Medicine
DX: R07.9 Chest pain, unspecified (principal); Z79.01 Long term (current) use of anticoagulants; I25.118 Atherosclerotic heart disease of native coronary artery with other forms of angina pectoris; M35.3 Polymyalgia rheumatica; Z95.828 Presence of other vascular implants and grafts; I65.23 Occlusion and stenosis of bilateral carotid arteries; Z82.49 Family history of ischemic heart disease and other diseases of the circulatory system; K21.9 Gastro-esophageal reflux disease without esophagitis
CPT/HCPCS: 85347; 92928; 93458; 99152; 99153; C1725; C1769; C1876; C9600; J1644; Q9967

== ENCOUNTER → 2021-05-28 12:37 | Outpatient (CLI) | payer MEDICARE, SELFPAY ==
--- NOTE | 2021-05-28 12:38 | CA_ITS ---
APPROVED REPORT EXAM: Comprehensive 2D, Doppler, and color-flow Echocardiogram Aquatic Scientist: Adriana Duron RDCS Ht: 5 ft 3 in Wt: 162lbs BSA: 1.77 BP: 151/59 mmHg Indications: CP,RECENT STENT,CAD,SOA,SMOKER,HTN,HLP M-Mode Dimensions RVDd 2.85 cm (0.9-2.6) LA Diam 3.45 cm (1.9-4.0) LVDd 5.10 cm (3.5-5.7) Ao Diam 3.41 cm (2.0-3.7) LVDs 3.40 cm (3.5-5.7) IVSd 1.19 cm (0.6-1.1) PWd 1.06 cm (0.6-1.1) EF (Teich) 61.70% FS 33.30% EDV (Teich) 123.80 mL TAPSE 2.34 (<1.7) ESV (Teich) 47.40 mL LV Diastology E Decel Time 243.00 (160-240 msec) E/A Ratio 0.6 MED E' 4.10 (< 7 cm/sec) E'/MED E' Ratio 12.63 (>14) LAT E' 4.10 (<10 cm/sec) E/LAT E' Ratio 12.63 (>14) Mitral Valve MV E Max Brodie. 52.00 (40-130 cm/s) MV A Velocity 93.00 (40-130 cm/s) E/A Ratio 0.56 MV Decel. Time 243.00 (160-240 ms) MV PHT 71.00 ms Left Ventricle Left atrium is mildly enlarged, left ventricle is normal size, mild concentric left ventricular hypertrophy, visually estimated ejection fraction 55% with no regional wall motion abnormality, grade 1 diastolic dysfunction seen without tissue Doppler evidence of raise left atrial pressure. Right Ventricle Right atrium and right ventricle are normal size and contractility. Aortic Valve Aortic valve is minimally thickened and fibrosed, there is no aortic stenosis or aortic insufficiency. Mitral Valve Mitral valve leaflets are minimally thickened, there is mild mitral regurgitation. Tricuspid Valve Tricuspid grossly normal, there is mild tricuspid regurgitation, tricuspid regurgitation jet velocity is inadequate for calculation of the right ventricular systolic pressure. Pulmonic Valve Pulmonic valve is poorly visualized. Great Vessels Aortic root is normal size. Pericardium Trivial pericardial effusion noted. Conclusion 1. Mildly enlarged left atrium, normal left ventricular size, mild concentric left ventricular hypertrophy, visually estimated ejection fraction 55% with no regional wall motion abnormality, grade 1 diastolic dysfunction seen without tissue Doppler evidence of raise left atrial pressure. 2. Mild mitral and tricuspid regurgitation. 3. Trivial pericardial effusion noted. Electronically signed by : Ross Walker MD 05/28/2021 13:30:16
--- NOTE | 2021-05-28 12:38 | CA_ITS ---
APPROVED REPORT Crew Car Driver: Nicole Gil RVT Laterality: Bilateral Study Quality: Good Indications: Carotid stenosis Risk Factors Hypertension: Hyperlipidemia Smoking Surgery/Intervention Carotid Stent: left Doppler Spectral Velocity Analysis ECA (R) 110.10/7.50 cm/s ECA (L) 212.70/10.20 cm/s dICA (R) 82.30/21.40 cm/s dICA (L) 161.50/33.10 cm/s Levon (R) 77.00/21.40 cm/s Levon (L) 157.20/27.80 cm/s pICA (R) 44.90/10.70 cm/s pICA (L) 125.10/26.70 cm/s dCCA (R) 65.20/12.80 cm/s dCCA (L) 115.50/15.00 cm/s pCCA (R) 97.30/13.90 cm/s pCCA (L) 101.60/19.20 cm/s Vert (R) 47.00/10.70 cm/s Vert (L) 76.90/12.80 cm/s ICA/CCA 1.26 ICA/CCA 1.40 Findings Study suggests 20-49% stenosis of the right internal cartoid artery. Study suggests 50-69% stenosis of the left internal cartoid artery. Antegrade flow seen bilateral vertebral arteries. Conclusion Study suggests 20-49% stenosis of the right internal cartoid artery. Study suggests 50-69% stenosis of the left internal cartoid artery. Antegrade flow seen bilateral vertebral arteries. Electronically signed by : Cuco Ferrara MD 05/28/2021 16:30:02
== END ==
PROVIDERS: PCP Family Medicine; Visit Provider Internal Medicine Cardiovascular Disease
DX: E78.5 Hyperlipidemia, unspecified (principal); F17.200 Nicotine dependence, unspecified, uncomplicated; I10 Essential (primary) hypertension; I65.23 Occlusion and stenosis of bilateral carotid arteries; M35.3 Polymyalgia rheumatica; R06.00 Dyspnea, unspecified; R07.89 Other chest pain; Z82.49 Family history of ischemic heart disease and other diseases of the circulatory system; Z95.828 Presence of other vascular implants and grafts; Z98.890 Other specified postprocedural states
CPT/HCPCS: 93306; 93880

== ENCOUNTER → 2021-06-04 09:40 | Outpatient (CLI) | payer MEDICARE, SELFPAY ==
[2021-06-04 10:09] LABS: Basophils # 0.1 K/mm3 (0-0.2); Basophils % 0.9 % (0.1-2.0); Eosinophils # 0.1 K/mm3 (0.0-0.4); Eosinophils % 0.7 % (0.1-12.0); Hematocrit 35.9 % (37.0-47.0); Hemoglobin 11.9 g/dL (12.2-16.2); Lymphocytes # 1.4 K/mm3 (0.7-4.5); Lymphocytes % 15.7 % (10-50); Mean Corpuscular HGB Conc 33.2 g/dL (31.8-35.4); Mean Corpuscular Hemoglobin 28.2 pg (27.0-31.2); Mean Corpuscular Volume 85.1 fl (81-99); Mean Platelet Volume 8.1 fl (7.4-10.4); Monocytes # 0.4 K/mm3 (0.1-1.0); Monocytes % 4.8 % (1.7-9.3); Neutrophils # 7.1 K/mm3 (1.8-7.8); Neutrophils % 77.9 % (37.0-80.0); Platelet Count 270 K/mm3 (142-424); Red Blood Count 4.22 M/mm3 (4.20-5.40); Red Cell Distribution Width 15.2 % (11.5-17.5); White Blood Count 9.1 K/mm3 (4.8-10.8)
[2021-06-04 11:15] LABS: Anion Gap 14.6 mEq/L (5-15); Blood Urea Nitrogen 39 mg/dl (7-17); Calcium 9.3 mg/dl (8.4-10.2); Carbon Dioxide 27 mmol/L (22.0-30.0); Chloride 104 mmol/L (98-107); Estimated Glomerular Filt Rate 40 ml/min (>60); GFR (African American) 48 ML/MIN (>60); Glucose 180 mg/dl (74-100); Potassium 4.6 mmoL/L (3.5-5.1); Sodium 141 mmol/L (136-145)
== END ==
PROVIDERS: Visit Provider Internal Medicine
DX: Z95.5 Presence of coronary angioplasty implant and graft (principal); I25.10 Atherosclerotic heart disease of native coronary artery without angina pectoris
CPT/HCPCS: 36415; 80048; 85025

== ENCOUNTER → 2021-06-18 10:37 | Outpatient (CLI) | payer MEDICARE, SELFPAY ==
[2021-06-18 12:23] LABS: Chloride 101 mmol/L (98-107); Potassium 5.1 mmoL/L (3.5-5.1); Sodium 139 mmol/L (136-145)
[2021-06-18 12:25] LABS: Blood Urea Nitrogen 23 mg/dl (7-17); Estimated Glomerular Filt Rate 44 ml/min (>60); GFR (African American) 53 ML/MIN (>60)
[2021-06-18 12:26] LABS: Anion Gap 16.1 mEq/L (5-15); Calcium 9.9 mg/dl (8.4-10.2); Carbon Dioxide 27 mmol/L (22.0-30.0); Glucose 124 mg/dl (74-100)
== END ==
PROVIDERS: Visit Provider Internal Medicine Cardiovascular Disease
DX: I20.9 Angina pectoris, unspecified; I11.9 Hypertensive heart disease without heart failure; E78.5 Hyperlipidemia, unspecified; I65.29 Occlusion and stenosis of unspecified carotid artery; F17.200 Nicotine dependence, unspecified, uncomplicated; Z95.828 Presence of other vascular implants and grafts; Z98.890 Other specified postprocedural states
CPT/HCPCS: 36415; 80048

== ENCOUNTER → 2021-07-07 09:09 | Outpatient (CLI) | payer MEDICARE, SELFPAY ==
--- NOTE | 2021-07-07 09:31 | ECG_ITS ---
APPROVED REPORT Exam: Resting ECG HR:65 bpm ECG Measurements Heart Rate 65 AXES NM 152 P 64 QRSd 104 QRS 10 QT 422 T 38 QTc 438 Conclusion Sinus rhythm with marked sinus arrhythmia Incomplete right bundle branch block Nonspecific T wave abnormality Abnormal ECG Electronically signed by : Luis Carlos Watts MD 07/07/2021 17:47:15
== END ==
PROVIDERS: PCP Family Medicine; Visit Provider Family Medicine
DX: I49.8 Other specified cardiac arrhythmias (principal)
CPT/HCPCS: 93005

== ENCOUNTER 2021-08-06 15:19 | Emergency (ER) | payer MEDICARE, SELFPAY ==
[2021-08-06] VITALS (7 sets, daily range): BP systolic 122–149; BP diastolic 48–68; PULSE 66–89; RESP 15–18; TEMP 36.7–37.3; O2SAT 95–98; BMI 28.7
--- NOTE | 2021-08-06 16:49 | PC.NURSE ---
pt refused all tests except for covid swab, states she has an appt with pcp tomorrow. States she does not want to lay here and wait . notified GRETCHEN SALAZAR
[2021-08-06 16:59] LABS: Coronavirus 19, PCR Not Detected (NotDetected); Influenza A, PCR Not Detected (NotDetected); Influenza B, PCR Not Detected (NotDetected)
--- NOTE | 2021-08-06 17:04 | PC.NURSE ---
pt escorted out per ED staff for safety. Pt daughters came back to door with pt and ER staff r/t pt is weak. Pt is now agreeing to be treated. pt back in room 11 at this time.
--- NOTE | 2021-08-06 17:12 | CT_ITS ---
PROCEDURE INFORMATION: Exam: CT Abdomen And Pelvis With Contrast Exam date and time: 08/06/2021 5:12 PM Age: 76 years old Clinical indication: Abdominal tenderness and vomiting and other: Diarrhea; Prior surgery; Surgery date: 6+ months; Surgery type: Hysterectomy tubal; Additional info: Diffuse abd pain vomiting diarrhea TECHNIQUE: Imaging protocol: Computed tomography of the abdomen and pelvis with contrast. Radiation optimization: All CT scans at this facility use at least one of these dose optimization techniques: automated exposure control; mA and/or kV adjustment per patient size (includes targeted exams where dose is matched to clinical indication); or iterative reconstruction. Contrast material: ISOVUE; Contrast volume: 75 ml; Contrast route: IV; COMPARISON: CR Hip L 05/12/2019 9:28 AM FINDINGS: Tubes, catheters and devices: Surgical clips noted at the gastroesophageal junction. Diaphragm: Small hiatal hernia. Liver: Fatty liver. Gallbladder and bile ducts: Gallbladder is moderately distended. No calcified gallstones. No gallbladder wall thickening or pericholecystic fluid. No intra- or extra-hepatic biliary ductal dilation. Trace foci of gas surround the distal common bile duct. Pancreas: Within normal limits. Spleen: Scattered punctate calcifications in the spleen, likely sequelae of prior granulomatous disease. Adrenal glands: Within normal limits. Kidneys and ureters: No renal or ureteral stones. No hydronephrosis. Stomach and bowel: Multiple loops of small bowel contain feculent material and gas. No small bowel dilation to suggest obstruction. No bowel wall thickening to suggest acute infectious/inflammatory process. Normal colonic stool burden. Appendix: Appendix is normal. Intraperitoneal space: No free fluid. No pneumoperitoneum. Vasculature: Moderate amount of calcified and non-calcified arterial atherosclerosis. Lymph nodes: No enlarged lymph nodes by CT criteria. Urinary bladder: Within normal limits. Reproductive: Within normal limits. Bones/joints: Age indeterminate compression fracture deformity of T12, favor chronic. Prominent Schmorl's node noted at T11. Striated lesion in L2 compatible with benign vertebral body hemangioma. No suspicious bone lesions. Soft tissues: Unremarkable. IMPRESSION: 1. Multiple loops of small bowel contain feculent material and gas, compatible with viral/bacterial enteritis vs small intestinal bacterial overgrowth syndrome (SIBO). No evidence of small-bowel obstruction. 2. Trace foci of gas surround the distal common bile duct. Findings may represent a small periampullary duodenal diverticulum vs postoperative changes of prior sphincterotomy vs recent passage of gallstone. 3. Gallbladder is moderately distended without evidence of calcified gallstones or inflammatory changes to suggest acute cholecystitis. Ultrasound could be performed to better evaluate for noncalcified gallstones, if present. 4. Fatty liver. 5. Age indeterminate compression fracture deformity of T12, favor chronic. Please correlate with point tenderness.
[2021-08-06 17:18] LABS: Basophils # 0.1 K/mm3 (0-0.2); Basophils % 1.1 % (0.1-2.0); Eosinophils # 0.1 K/mm3 (0.0-0.4); Eosinophils % 1.4 % (0.1-12.0); Hematocrit 33.9 % (37.0-47.0); Lymphocytes # 2.1 K/mm3 (0.7-4.5); Lymphocytes % 25.5 % (10-50); Mean Corpuscular HGB Conc 32.6 g/dL (31.8-35.4); Mean Corpuscular Hemoglobin 28.2 pg (27.0-31.2); Mean Corpuscular Volume 86.8 fl (81-99); Mean Platelet Volume 8.6 fl (7.4-10.4); Monocytes # 0.6 K/mm3 (0.1-1.0); Monocytes % 6.9 % (1.7-9.3); Neutrophils # 5.3 K/mm3 (1.8-7.8); Neutrophils % 65.1 % (37.0-80.0); Platelet Count 529 K/mm3 (142-424); Red Cell Distribution Width 14.6 % (11.5-17.5); White Blood Count 8.1 K/mm3 (4.8-10.8)
[2021-08-06 17:23] LABS: Chloride 104 mmol/L (98-107); Sodium 136 mmol/L (136-145)
[2021-08-06 17:24] LABS: Potassium 3.6 mmoL/L (3.5-5.1)
[2021-08-06 17:26] LABS: Alanine Aminotransferase 15 U/L (12-78); Alkaline Phosphatase 56 U/L (38-126); Anion Gap 18.6 mEq/L (5-15); Aspartate Amino Transferase 34 U/L (14-36); Bilirubin,Total 0.5 mg/dl (0.2-1.3); Blood Urea Nitrogen 54 mg/dl (7-17); Carbon Dioxide 17 mmol/L (22.0-30.0); Creatinine Clearance Estimated 54 mL/min (50-200); Estimated Glomerular Filt Rate 54 ml/min (>60); GFR (African American) 65 ML/MIN (>60); Lipase 167 U/L (23-300)
[2021-08-06 17:27] LABS: Albumin Level 3.9 g/dl (3.5-5.0); Albumin/Globulin Ratio 1.1 (1.1-1.8); Globulin 3.7 g/dL (1.3-3.2); Glucose 117 mg/dl (74-100); Magnesium 1.7 mg/dl (1.6-2.3); Total Protein,Serum 7.6 g/dl (6.3-8.2)
--- NOTE | 2021-08-06 17:36 | PC.NURSE ---
Walked with pt due to her not wanting to stay and have any tests. Spoke with pt and daughters in the parking and advised pt she really needed to be seen and treated. After conversation with daughters pt agreeable to come back in for treatment. Walked back in with pt and put her back in room 11. Started IV, sher blood and medicated patient. Went out and updated pt's daughters they advised she had dementia and would sometimes have those spells. I advised if pt had dementia we would allow one daughter at the bedside. Daughter at bedside at this time.
[2021-08-06 17:38] LABS: Troponin I < 0.01 ng/ml (0.00-0.034)
--- NOTE | 2021-08-06 17:58 | PC.NURSE ---
pt to CT
[2021-08-06 19:07] LABS: Microscopic, Urine URINE MICROSCOPIC (MICROSCOPIC)
[2021-08-06 19:11] LABS: Appearance,Urine CLEAR (Clear); Bilirubin,Urine Negative (Negative); Blood, Urine Negative (Negative); Color,Urine YELLOW (Yellow); Glucose,Urine (UA) Negative (Negative); Ketones,Urine Negative (Negative); Leukocyte Esterase,Urine Negative (Negative); Nitrate,Urine Negative (Negative); Protein,Urine Negative (Negative); Urobilinogen,Urine 0.2 EU/dl (0.2)
[2021-08-06 19:17] LABS: Lactic Acid 1.3 mmol/L (0.7-2.1)
[2021-08-06 19:25] LABS: Squamous Epithelial Cell,Urine Occasional #/hpf (0-5)
[2021-08-06 20:18] LABS: Troponin I < 0.01 ng/ml (0.00-0.034)
--- NOTE | 2021-08-06 20:26 | HMH.EDGENADL ---
ED Disposition Clinical Impression: Enteritis Disposition: Home, Self-Care Condition on Discharge: Good Additional Instructions: You may take Zofran for nausea and vomiting to help with drinking and eating. If your condition worsens or any other concerning symptoms that we discussed arise, please return to the nearest emergency department for reassessment. Otherwise, please see your primary care doctor on Monday to ensure improvement. Prescriptions: Ondansetron [Zofran 4mg ODT] 4 mg PO TIDP PRN 3 Days #9 tab PRN Reason: Nausea Transmission Status: Received by [facility] Referrals: Roly Gilbert MD [Primary Care Provider] - - Critical Care Critical Care Time: No Attestation: On 08/06/21, the high probability of a clinically significant, sudden or life threatening deterioration of the following system(s) required my full and direct attention, intervention and personal management. The time I documented below is in addition to time spent performing reported procedures but includes the following listed in this critical care notation. Medical Decision Making - Medical Records Medical records reviewed: Yes: I reviewed the patient's medical records. - Everardo Inquiry Pt receiving controlled substance: No Vital Signs: 08/06/21 15:21 08/06/21 16:50 08/06/21 17:11 Temperature 99.1 F Temperature Source Oral Pulse Rate 89 78 Pulse Rate [Right Radial] 75 Respiratory Rate 18 15 16 Blood Pressure 149/68 H 122/55 L Blood Pressure [Right Arm] 128/60 Blood Pressure Mean 80 74 Blood Pressure Mean [Right Arm] 82 Blood Pressure Source Blood Pressure Source [Right Arm] Automatic Cuff Blood Pressure Position Blood Pressure Position [Right Arm] Sitting 02 Sat by Pulse Oximetry 96 97 98 Oxygen Delivery Method Room Air 08/06/21 17:30 08/06/21 18:34 08/06/21 19:00 Temperature Temperature Source Pulse Rate 78 80 66 Pulse Rate [Right Radial] Respiratory Rate 17 15 Blood Pressure 141/62 H 129/48 L 138/53 L Blood Pressure [Right Arm] Blood Pressure Mean 83 71 81 Blood Pressure Mean [Right Arm] Blood Pressure Source Blood Pressure Source [Right Arm] Blood Pressure Position Blood Pressure Position [Right Arm] 02 Sat by Pulse Oximetry 98 95 98 Oxygen Delivery Method 08/06/21 20:53 08/06/21 21:02 Temperature 98.1 F Temperature Source Oral Pulse Rate 71 Pulse Rate [Right Radial] Respiratory Rate 18 Blood Pressure 138/66 Blood Pressure [Right Arm] Blood Pressure Mean Blood Pressure Mean [Right Arm] Blood Pressure Source Automatic Cuff Blood Pressure Source [Right Arm] Blood Pressure Position Sitting Blood Pressure Position [Right Arm] 02 Sat by Pulse Oximetry Oxygen Delivery Method Room Air Room Air - Lab Data Lab Results 08/06/21 16:50: SARS-CoV-2 (PCR) Not detected, Influenza A Untype (PCR) Not detected, Influenza Type B (PCR) Not detected 08/06/21 17:09: WBC 8.1, RBC 3.90 L, Hgb 11.0 L, Hct 33.9 L, MCV 86.8, MCH 28.2, MCHC 32.6, RDW 14.6, Plt Count 529 H, MPV 8.6, Neut % (Auto) 65.1, Lymph % (Auto) 25.5, [place] % (Auto) 6.9, Eos % (Auto) 1.4, Baso % (Auto) 1.1, Neut # (Auto) 5.3, Lymph # (Auto) 2.1, [place] # (Auto) 0.6, Eos # (Auto) 0.1, Baso # (Auto) 0.1 08/06/21 17:09: Sodium 136, Potassium 3.6, Chloride 104, Carbon Dioxide 17 L, Anion Gap 18.6 H, BUN 54 H, Creatinine 1.00, Estimated Creat Clear 54, Estimated GFR 54 L, Est GFR ( Amer) 65, Glucose 117 H, Calcium 10.0, Magnesium 1.7, Total Bilirubin 0.5, AST 34, ALT 15, Alkaline Phosphatase 56, Troponin I < 0.01, Total Protein 7.6, Albumin 3.9, Globulin 3.7 H, Albumin/Globulin Ratio 1.1 08/06/21 17:09: Lipase 167 08/06/21 18:30: Urine Color Yellow, Urine Appearance Clear, Urine pH 6.0, Ur Specific [place] 1.020, Urine Protein Negative, Urine Glucose (UA) Negative, Urine Ketones Negative, Urine Blood Negative, Urine Nitrate Negative, Urine Bilirubin Negative, U
== END 2021-08-06 21:07 | disposition home or self-care (01) ==
PROVIDERS: Emergency Provider Emergency Medicine; PCP Family Medicine
DX: K52.9 Noninfective gastroenteritis and colitis, unspecified (principal); M81.0 Age-related osteoporosis without current pathological fracture; F41.8 Other specified anxiety disorders; K21.9 Gastro-esophageal reflux disease without esophagitis; E78.5 Hyperlipidemia, unspecified; I10 Essential (primary) hypertension; R05.1 Acute cough
CPT/HCPCS: 74177; 80053; 81001; 83605; 83690; 83735; 84484; 85025; 96365; 96375; 99284; C9803; J2405; Q9967; U0003; U0005

== ENCOUNTER → 2021-08-20 13:14 | Outpatient (CLI) | payer MEDICARE, SELFPAY ==
--- NOTE | 2021-08-20 13:18 | XR_ITS ---
PROCEDURE: XR SHOULDER LT MIN 2V CLINICAL INDICATION: FLOR SHOULDER PAIN COMPARISON: No exams were available for comparison FINDINGS: No fracture or dislocation. No lytic or blastic change. There is normal mineralization. There is mild subacromial stenosis. No significant arthritic changes. Other findings:None. IMPRESSION: Mild subacromial stenosis otherwise negative Dictated by: Cuco Ferrara MD 08/20/2021 14:05 Cuco Ferrara MD in [place] 08/20/2021 14:05
--- NOTE | 2021-08-20 13:18 | XR_ITS ---
PROCEDURE: XR SHOULDER RT MIN 2V CLINICAL INDICATION: FLOR SHOULDER PAIN COMPARISON: CR XR CHEST PORTABLE from 04/12/2021 FINDINGS: Mild osteoarthritic changes are present at the glenohumeral joint and acromioclavicular joint. There is an old right 5th rib fracture. There is a right cervical rib noted. No acute fracture or dislocation. Other findings:Small area of faint calcification is present along the right humeral head and could be related to calcific tendinitis IMPRESSION: Osteoarthritic changes. Old right 5th rib fracture Possible calcific tendinitis of the right shoulder Dictated by: Cuco Ferrara MD 08/20/2021 15:05 Cuco Ferrara MD in [place] 08/20/2021 15:05
== END ==
PROVIDERS: PCP Family Medicine; Visit Provider Family Medicine
DX: M25.512 Pain in left shoulder (principal)
CPT/HCPCS: 73030

== ENCOUNTER 2021-09-30 11:00 | Outpatient (RCR) | payer MEDICARE, SELFPAY ==
--- NOTE | 2021-09-01 13:54 | HMH.OTOPEV ---
OT Inpatient Evaluation Rehab OT Outpatient Eval Start: 09/01/21 13:40 Freq: Status: Active Protocol: Document 09/01/21 13:40 [place] (Rec: 09/01/21 13:53 [id number] Electronically Signed By Joycelyn Jackson OT 09/01/21 13:40 Outpatient Therapy Subjective History Subjective History Pt is a 76 year old female who reports to therapy for initial evaluation to bilateral shoulders. Pt reports she began having debilitating pain in bilateral shoulders ~6 months ago. Her left shoulder has always been the worst . She is right hand dominant. She does have a past medical history of RA. At this tme she is on prednisone 20 mg daily. She reports this helps her pain significantly, but she is still limited with AROM and strength. Pt also explains she fell ~ 1 week ago landing on the left shoulder, but did not seek medical attention. At this time she has not been seen by othropedic. Upon evaluation pt is significantly limited with AROM and strength bilaterally. Pt will continue to be seen twice a week in order to address all deficits. STG AROM Right shoulder Flex: 120 degres Abd: 130 degrees ER: 80 degrees IR: 90 degrees L shoulder Flex: 110 degrees Abd: 110 degrees ER: 75 degrees IR: 85 degrees LTG Bilateral Shoulder AROM R shoulder Flex: 140 degrees Abd: 140 degrees ER: 90 degrees IR: 90 degrees L shoulder Flex: 120 degrees Abd: 120 degrees
--- NOTE | 2021-09-27 11:24 | HMH.RHREAS ---
Rehab Reassessment Rehab OP Re-assessment Start: 09/27/21 10:20 Freq: Status: Active Protocol: Document 09/27/21 10:20 MILTON (Rec: 09/27/21 11:24 ALEKSEY [id number]) Electronically Signed By Joycelyn Jackson OT 09/27/21 10:20 Rehab Re-assessment Subjective Subjective I think it is some better. Objective Objective Notes Pt continues to be seen twice a week to address bilateral shoulder deficits. Each session pt engages in bilateral AROM, AAROM, and strengthening exercises for shoulders. Modalities are provided in order to decrease pain/inflammation. Assessment Progress Assessment Progressing as Expected Assessment Notes Pt demonstrates signficant improvement since starting therapy. Pt reports she no longer has any pain in either shoulder. She also explains she is able to engage in all ADLs and IADLs like she was prior to shoulder issues. Patient is very pleased with progress. Current Shoulder AROM Right shoulder Flex: 160 degrees Abd: 150 degrees ER: 90 degrees IR: 90 degrees Left shoulder Flex: 145 degrees Abd: 145 degrees ER: 90 degrees IR: 90 degrees Patient goals met Pt has met all STG and LTG at this time Goals Not Met N/a Revised Goals n/a Plan Plan Patient is going to complete this week of therapy and then will be discharged from OT to complete exercises independently since she has met all goals Time and Billing Re-Eval Time 10 Re-Eval Billing Units 1 PHYSICIAN CERTIFICATION: I certify the specified therapy services for [place] are required, authorized, and reviewed every 30 days.
== END 2021-09-30 11:05 | disposition home or self-care (01) ==
LOC: OT 11:00
PROVIDERS: PCP Family Medicine; Visit Provider Family Medicine
DX: M25.511 Pain in right shoulder (principal); M25.512 Pain in left shoulder
CPT/HCPCS: 97014; 97110; 97164; 97166; G0283

== ENCOUNTER → 2021-11-26 08:40 | Outpatient (CLI) | payer MEDICARE, SELFPAY ==
--- NOTE | 2021-11-26 08:44 | MR_ITS ---
FINAL REPORT CLINICAL HISTORY: IMBALANCE. FALLING FREQUENTLY X10WKS. 14ML PROHANCE GIVEN. FINDINGS: Multiplanar MR imaging of the brain was performed without and with contrast. There is mild age-appropriate atrophy. The ventricles are mildly enlarged consistent with the degree of atrophy. Scattered foci of increased T2 signal are seen in the cerebral white matter that have a nonspecific appearance but likely represent mild chronic ischemic/gliotic changes. There is a small chronic left periventricular lacunar infarct. There is no evidence of intracranial hemorrhage or mass. No abnormal ventricular dilatation is identified. There is no evidence of shift of the midline structures. No abnormal extra-axial fluid collection is seen. No area of abnormal restricted diffusion is identified. The posterior fossa and brainstem have an unremarkable appearance. No abnormal contrast enhancement is seen. Normal major vessel vascular flow voids are seen. IMPRESSION: Mild atrophy and chronic ischemic/gliotic changes. No acute intracranial abnormality. Reviewed, Interpreted and Dictated by Nico Luis III, MD Transcribed by TAWANA Rowley Authenticated by Nico Luis III, MD on 11/26/2021 11:37:59 AM [facility]
== END ==
PROVIDERS: PCP Family Medicine; Visit Provider Family Medicine
DX: R26.89 Other abnormalities of gait and mobility (principal)
CPT/HCPCS: 70553; A9576

== ENCOUNTER → 2021-12-08 09:25 | Outpatient (CLI) | payer MEDICARE, SELFPAY ==
--- NOTE | 2021-12-08 09:26 | CA_ITS ---
FINAL REPORT TECHNIQUE: Real-time imaging was performed of the extracranial carotid arteries in transverse and longitudinal planes, with color duplex evaluation of blood flow velocity. Spectral analysis was performed. The cervical vertebral arteries were also examined. CLINICAL HISTORY: CELY-Lt CCA/ICAS stenting, CAD, Dizziness FINDINGS: NASCET technique is utilized for stenosis evaluation. Right carotid system (centimeters/second): CCA: 115.2 ICA: 70.3 ECA: 58.4 Vertebral artery: Antegrade ICA/CCA ratio: 1.6 Mild plaque is identified at the bifurcation. Left carotid system (centimeters/second): CCA: 71.1 ICA: 141 ECA: 161.8 Vertebral artery: Antegrade ICA/CCA ratio: 2.0 Moderate plaque is identified at the bifurcation. IMPRESSION: 20-49 % right ICA stenosis. 50-69 % left ICA stenosis. Reviewed, Interpreted and Dictated by Carlos Hull MD Transcribed by TAWANA Rowley Authenticated by Carlos Hull MD on 12/08/2021 02:01:31 PM [facility]
== END ==
PROVIDERS: PCP Family Medicine; Visit Provider Internal Medicine Cardiovascular Disease
DX: I65.23 Occlusion and stenosis of bilateral carotid arteries (principal); Z95.828 Presence of other vascular implants and grafts; Z98.890 Other specified postprocedural states
CPT/HCPCS: 93880

== ENCOUNTER → 2021-12-29 09:56 | Outpatient (CLI) | payer MEDICARE, SELFPAY ==
--- NOTE | 2021-12-29 09:58 | MM_ITS ---
PROCEDURE INFORMATION: Exam: MG Bilateral Screening 3D Mammography Exam date and time: 12/29/2021 9:58 AM Age: 76 years old Clinical indication: Encounter for screening mammogram for malignant neoplasm of breast. Her maternal aunt had breast cancer. TECHNIQUE: Imaging protocol: Bilateral Screening tomosynthesis and 2D mammography including computer-aided detection (CAD) when performed. COMPARISON: 1. MG MM DIG SCREENING MAMM BI W/CAD 12/25/2020 3:10 PM 2. MG MM DIG SCREENING MAMM BI W/CAD 12/19/2019 8:17 AM 3. MG DIG MAMM-SCREEN FLOR 01/07/2019 8:40 AM 4. MG SCBI MM Dig screening mamm BI w/CAD 01/02/2018 4:49 PM FINDINGS: MAMMOGRAPHY: Breast composition: The breast tissue is composed of scattered areas of fibroglandular density. Mass: None. Architectural distortion: None. Calcifications: No suspicious calcifications. Asymmetric density: None. Skin thickening: None. Axillary adenopathy: None. Other: Stable bilateral inverted nipples. IMPRESSION: No mammographic evidence of malignancy. Annual screening is recommended unless otherwise clinically indicated. ASSESSMENT: BI-RADS Category 2: Benign
== END ==
PROVIDERS: PCP Family Medicine; Visit Provider Family Medicine
DX: Z12.31 Encounter for screening mammogram for malignant neoplasm of breast (principal)
CPT/HCPCS: 77063; 77067

== ENCOUNTER → 2022-01-07 08:32 | Outpatient (CLI) | payer MEDICARE, SELFPAY ==
--- NOTE | 2022-01-07 08:32 | MR_ITS ---
FINAL REPORT CLINICAL HISTORY: neck pain, proximal weakness. prior hx neck surgery xyrs ago. drop in rt foot. lt hand numbness. headache. no recent injury or trauma. FINDINGS: Multi planar MR imaging was obtained of the cervical spine. There is abnormal decreased signal throughout the cervical discs. There is reversal of the cervical lordosis. There is partial fusion of C6-7. The vertebrae are of normal height. There is no malalignment. The cervical cord demonstrates normal signal and configuration. C2-C3: There is no evidence of significant disc bulge or protrusion. There is no significant facet hypertrophy. C3-C4: Mild left posterolateral disc protrusion is present with mild left neural foraminal narrowing. C4-C5: Mild endplate hypertrophy is present, eccentric to the left with moderate left neural foraminal narrowing. C5-C6: There is no evidence of significant disc bulge or protrusion. There is no significant facet hypertrophy. C6-C7: There is no evidence of significant disc bulge or protrusion. There is no significant facet hypertrophy. C7-T1: There is no evidence of significant disc bulge or protrusion. There is no significant facet hypertrophy. IMPRESSION: Mild endplate hypertrophy at C4-5 eccentric to the left with moderate left neural foraminal narrowing. Reviewed, Interpreted and Dictated by Carlos Hull MD Transcribed by Stephania Mcbride Authenticated by Carlos Hull MD on 01/07/2022 11:24:54 AM [facility]
--- NOTE | 2022-01-07 08:32 | MR_ITS ---
FINAL REPORT CLINICAL HISTORY: back pain, falls, right foot drop, weakness. drop in lt foot. hx lumbar surgery. lbp. rt leg pain. no recent injury or trauma. prior mr 10-15-18 COMPARISON: 10/15/2018 FINDINGS: Multiplanar MR imaging of the lumbar spine was performed without contrast. On the sagittal T2-weighted images, there is abnormal decreased signal throughout the lumbar discs. There is mild indentation at the superior endplate of the T12 vertebra measuring 20%. The vertebrae are of normal height. The vertebral alignment is normal. L1-2: There is no significant canal stenosis or neural foraminal narrowing. L2-3: Mild diffuse disc bulge is present. There is bilateral facet hypertrophy with mild bilateral neural foraminal narrowing. L3-4: There is no significant canal stenosis or neural foraminal narrowing. L4-5: Moderate diffuse disc bulge is present. There is bilateral facet hypertrophy with mild right and moderate left neural foraminal narrowing. L5-S1: Mild diffuse disc bulge is present with mild bilateral neural foraminal narrowing. IMPRESSION: Mild indentation at the superior endplate of T12, probably due to a Schmorl's node, stable from prior. Multilevel degenerative disc disease with moderate left neural foraminal narrowing at L4-5. Findings are slightly more evident than previous. Reviewed, Interpreted and Dictated by Carlos Hull MD Transcribed by Stephania Mcbride Authenticated by Carlos Hull MD on 01/07/2022 11:24:56 AM [facility]
== END ==
PROVIDERS: PCP Family Medicine; Visit Provider Nurse Practitioner Family
DX: M21.371 Foot drop, right foot (principal); M54.2 Cervicalgia; M62.89 Other specified disorders of muscle; R26.89 Other abnormalities of gait and mobility; R29.6 Repeated falls; G89.29 Other chronic pain; M54.9 Dorsalgia, unspecified
CPT/HCPCS: 72141; 72148; 76376; 94762

== ENCOUNTER → 2022-02-04 13:36 | Outpatient (CLI) | payer MEDICARE, SELFPAY | PROVIDERS: PCP Family Medicine; Visit Provider Nurse Practitioner Family | DX: G47.33 Obstructive sleep apnea (adult) (pediatric) (principal); G47.34 Idiopathic sleep related nonobstructive alveolar hypoventilation; R53.83 Other fatigue; R06.83 Snoring | CPT/HCPCS: G0399 ==

== ENCOUNTER 2022-02-16 10:00 | Outpatient (RCR) | payer MEDICARE, SELFPAY ==
--- NOTE | 2022-01-27 15:07 | HMH.PTOPEV ---
PT Outpatient Evaluation Rehab PT Outpatient Evaluation Start: 01/27/22 14:32 Freq: Status: Active Protocol: Document 01/27/22 14:32 LUIS (Rec: 01/27/22 15:07 LUIS [id number]) Electronically Signed By Dylan Shell, PT 01/27/22 14:32 Outpatient Therapy Subjective History Subjective History Patient is a 76 year old female presenting to outpatient PT with reports of chronic LBP with R foot drop starting approximately 2 years ago per patient report. 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 Most recent lumbar spine MRI multi-level DDD and L 4/5 foraminal narrowing. Patient reports multiple falls over the past year. Patient reports 10+ falls over the past month. Comorbidities include hx of LS surgery ( unable to specify), CV stent x 1 and carotid stent x 1. Chief Complaint Pain,Stiff,Paresthesia, Weakness Symptom Type Ache Symptoms Relieved By Rest/Positioning,Heat,OTC Meds Symptoms Aggravated By Standing,Physical Activity, Walking Prior Functional Limitations Standing,Walking Current Functional Limitations Lifting,Housework,Standing, Squatting,Walking,Bending/ Stooping Symptom Description Intermittent Level of pain today (0-10) 0 Pain scale - at its best (0-10) 0 Pain scale - at its worst (0-10) 8 Lumbopelvic Eval Posture Thoracic Spine Posture Standing Position Increased Kyphosis Lumbar Spine Posture Standing Position Increased Lordosis Assistive device Assistive Devices Straight Cane Palapation tenderness bilateral lumbar spinal tenderness Yes: L3-S1 3/4 paraspinal tenderness Yes: buttock tenderness Yes: Range of Motion Lumbar Spine Active Flexion Range of 48 Motion (degrees) Lumbar Spine Active Extension Range of 11 Motion (degrees) Left Lumbar Spine Lateral Flexion Active 16 Range of Motion (degrees) Right Lumbar Spine Lateral Flexion 14 Active Range of Motion (degrees) Lumbar Spine ROM Limitations Soft Tissue Tightness,Bony Restriction Manual Muscle Test Right Knee Extension Strength Grade 4- Good- Knee Flexion Strength Grade 4- Good-
== END 2022-02-16 10:05 | disposition home or self-care (01) ==
LOC: PT 10:00
PROVIDERS: PCP Family Medicine; Visit Provider Nurse Practitioner Family
DX: M21.371 Foot drop, right foot (principal); R26.89 Other abnormalities of gait and mobility; R26.9 Unspecified abnormalities of gait and mobility; G57.31 Lesion of lateral popliteal nerve, right lower limb; M54.50 Low back pain, unspecified; G89.29 Other chronic pain
CPT/HCPCS: 97110; 97163

== ENCOUNTER → 2022-06-13 07:40 | Outpatient (CLI) | payer MEDICARE, SELFPAY ==
--- NOTE | 2022-06-13 07:58 | CA_ITS ---
FINAL REPORT TECHNIQUE: Grayscale, color Doppler and duplex Doppler ultrasound of the kidneys, aorta and renal arteries was performed. Multiple velocities were measured. CLINICAL HISTORY: HTN,HLD FINDINGS: Aorta velocity: 91 cm/sec Right kidney: 10.2 cm. No evidence of hydronephrosis or mass. Right intrarenal RI: 0.75 Right renal artery velocity: 202 cm/sec. Right RAR (Renal artery-Aortic Ratio): 2.2 Left Kidney: 11.6 cm. No evidence of hydronephrosis or mass. Left intrarenal RI: 0.74 Left renal artery velocity: 265 cm/sec. Left RAR (Renal Artery-Aortic Ratio): 2.9 IMPRESSION: Less than 60% bilateral renal artery stenosis. Recommend correlation with CTA or catheter directed angiography. Reviewed, Interpreted and Dictated by Nico Luis III, MD Transcribed by Rodrigo Najera Authenticated and . [facility]
[2022-06-13 08:44] LABS: Blood Urea Nitrogen 25 mg/dl (7-17); Calcium 9.7 mg/dl (8.4-10.2); Carbon Dioxide 32 mmol/L (22.0-30.0); Chloride 105 mmol/L (98-107); Estimated Glomerular Filt Rate 69 ml/min (>60); GFR (African American) 84 ML/MIN (>60); Glucose 119 mg/dl (74-100); Sodium 142 mmol/L (136-145)
== END ==
PROVIDERS: PCP Family Medicine; Visit Provider Internal Medicine Cardiovascular Disease
DX: I11.9 Hypertensive heart disease without heart failure; I20.8 Other forms of angina pectoris; I65.23 Occlusion and stenosis of bilateral carotid arteries; E78.2 Mixed hyperlipidemia; F17.200 Nicotine dependence, unspecified, uncomplicated; Z95.828 Presence of other vascular implants and grafts; Z98.890 Other specified postprocedural states
CPT/HCPCS: 36415; 80048; 93976

== ENCOUNTER → 2022-10-06 08:10 | Outpatient (CLI) | payer MEDICARE, SELFPAY ==
[2022-10-06 18:45] LABS: Basophils # 0.1 K/mm3 (0-0.2); Basophils % 0.9 % (0.1-2.0); Eosinophils # 0.1 K/mm3 (0.0-0.4); Eosinophils % 1.1 % (0.1-12.0); Hematocrit 39.4 % (37.0-47.0); Hemoglobin 12.7 g/dL (12.2-16.2); Lymphocytes # 1.6 K/mm3 (0.7-4.5); Lymphocytes % 23.1 % (10-50); Mean Corpuscular HGB Conc 32.2 g/dL (31.8-35.4); Mean Corpuscular Hemoglobin 30.3 pg (27.0-31.2); Mean Corpuscular Volume 93.9 fl (81-99); Mean Platelet Volume 9.6 fl (7.4-10.4); Monocytes # 0.4 K/mm3 (0.1-1.0); Monocytes % 5.3 % (1.7-9.3); Neutrophils # 4.7 K/mm3 (1.8-7.8); Neutrophils % 69.7 % (37.0-80.0); Platelet Count 177 K/mm3 (142-424); White Blood Count 6.8 K/mm3 (4.8-10.8)
[2022-10-06 18:51] LABS: Alanine Aminotransferase 28 U/L (12-78); Albumin Level 4.4 g/dl (3.5-5.0); Albumin/Globulin Ratio 1.8 (1.1-1.8); Alkaline Phosphatase 65 U/L (38-126); Anion Gap 12.2 mEq/L (5-15); Aspartate Amino Transferase 34 U/L (14-36); Bilirubin,Total 0.4 mg/dl (0.2-1.3); Blood Urea Nitrogen 22 mg/dl (7-17); Carbon Dioxide 32 mmol/L (22.0-30.0); Chloride 102 mmol/L (98-107); Cholesterol 140 mg/dl (140-200); Estimated Glomerular Filt Rate 60 ml/min (>60); GFR (African American) 73 ML/MIN (>60); Globulin 2.5 g/dL (1.3-3.2); Glucose 135 mg/dl (74-100); HDL Cholesterol 47 mg/dl (40-60); Potassium 4.2 mmoL/L (3.5-5.1); Sodium 142 mmol/L (136-145); Total Protein,Serum 6.9 g/dl (6.3-8.2); Triglycerides 260 mg/dl (30-150); VLDL Cholesterol 52 mg/dL (0-40)
[2022-10-06 19:08] LABS: T4 (Thyroxine) 4.8 ug/dl (5.53-11.0)
[2022-10-06 19:09] LABS: 25-OH Vitamin D, Total 39.7 ng/mL (30-100); Hemoglobin A1C 5.9 % (4.0-6.0)
[2022-10-06 19:23] LABS: Iron 188 ug/dL (37-170)
[2022-10-06 19:47] LABS: Vitamin B12 > 1000 pg/mL (239-931)
== END ==
PROVIDERS: PCP Family Medicine; Visit Provider Family Medicine
DX: D50.8 Other iron deficiency anemias (principal); E78.2 Mixed hyperlipidemia; I10 Essential (primary) hypertension; S79.912A Unspecified injury of left hip, initial encounter; R06.00 Dyspnea, unspecified; E55.9 Vitamin D deficiency, unspecified; E11.9 Type 2 diabetes mellitus without complications; I20.8 Other forms of angina pectoris
CPT/HCPCS: 80053; 80061; 82306; 82607; 83036; 83540; 84436; 84443; 85025

== ENCOUNTER → 2023-01-13 23:55 | Outpatient (CLI) | payer MEDICARE, SELFPAY ==
[2023-01-13 19:03] LABS: Basophils # 0.1 K/mm3 (0-0.2); Basophils % 1.2 % (0.1-2.0); Eosinophils # 0.1 K/mm3 (0.0-0.4); Eosinophils % 0.8 % (0.1-12.0); Hematocrit 38.5 % (37.0-47.0); Hemoglobin 12.5 g/dL (12.2-16.2); Lymphocytes # 1.2 K/mm3 (0.7-4.5); Lymphocytes % 17.3 % (10-50); Mean Corpuscular HGB Conc 32.5 g/dL (31.8-35.4); Mean Corpuscular Hemoglobin 30.3 pg (27.0-31.2); Mean Corpuscular Volume 93.2 fl (81-99); Mean Platelet Volume 9.7 fl (7.4-10.4); Monocytes # 0.2 K/mm3 (0.1-1.0); Monocytes % 3.2 % (1.7-9.3); Neutrophils # 5.3 K/mm3 (1.8-7.8); Neutrophils % 77.4 % (37.0-80.0); Platelet Count 171 K/mm3 (142-424); Red Blood Count 4.13 M/mm3 (4.20-5.40); Red Cell Distribution Width 13.8 % (11.5-17.5); White Blood Count 6.8 K/mm3 (4.8-10.8)
[2023-01-13 19:16] LABS: Alanine Aminotransferase 40 U/L (12-78); Albumin Level 4.2 g/dl (3.5-5.0); Albumin/Globulin Ratio 1.8 (1.1-1.8); Alkaline Phosphatase 51 U/L (38-126); Anion Gap 11.2 mEq/L (5-15); Aspartate Amino Transferase 45 U/L (14-36); Bilirubin,Total 0.5 mg/dl (0.2-1.3); Blood Urea Nitrogen 18 mg/dl (7-17); Calcium 8.9 mg/dl (8.4-10.2); Carbon Dioxide 30 mmol/L (22.0-30.0); Chloride 101 mmol/L (98-107); Estimated Glomerular Filt Rate 81 ml/min (>60); GFR (African American) 98 ML/MIN (>60); Globulin 2.4 g/dL (1.3-3.2); Glucose 164 mg/dl (74-100); Potassium 4.2 mmoL/L (3.5-5.1); Sodium 138 mmol/L (136-145); Total Protein,Serum 6.6 g/dl (6.3-8.2)
[2023-01-13 19:35] LABS: Free Thyroxine Index 1.7 ug/dL (5.93-13.13); T4 (Thyroxine) 5.4 ug/dl (5.53-11.0); Triiodothryronine (T3) Uptake 31 % (23.5-40.5)
[2023-01-13 19:48] LABS: Thyroid Stimulating Hormone 0.07 uIU/mL (0.465-4.68)
== END ==
PROVIDERS: PCP Family Medicine; Visit Provider Family Medicine
DX: Z86.79 Personal history of other diseases of the circulatory system (principal); I25.10 Atherosclerotic heart disease of native coronary artery without angina pectoris; Z79.899 Other long term (current) drug therapy
CPT/HCPCS: 80053; 84436; 84443; 84479; 85025

== ENCOUNTER → 2023-01-26 07:47 | Outpatient (CLI) | payer MEDICARE, SELFPAY ==
--- NOTE | 2023-01-26 07:47 | CT_ITS ---
FINAL REPORT TECHNIQUE: Axial images were obtained from the lung apex to the mid abdomen by computed tomography. Coronal reformatted images were obtained. This study was performed with techniques to keep radiation doses as low as reasonably achievable, (ALARA). Individualized dose reduction techniques using automated exposure control or adjustment of mA and/or kV according to the patient''s size were employed. CLINICAL HISTORY: Former Smoker COMPARISON: 11/28/2018 FINDINGS: There is no axillary adenopathy. There is no hilar or mediastinal adenopathy. Heart size is normal. There is no pericardial or pleural effusion. Limited images of the upper abdomen are unremarkable. On the lung window images, there are moderate changes of emphysema with mild pulmonary scarring. There are several calcified granulomas bilaterally. There is a 2 mm lateral left lower lobe nodule on image 52 that is stable since 2019 and is consistent with a benign nodule. No new mass or nodule is identified. IMPRESSION: Moderate emphysema. No suspicious nodule is identified. Reviewed, Interpreted and Dictated by Nico Luis III, MD Transcribed by Jackie Stevens Authenticated and [facility]
== END ==
PROVIDERS: PCP Family Medicine; Visit Provider Family Medicine
DX: Z87.891 Personal history of nicotine dependence; R06.02 Shortness of breath
CPT/HCPCS: 71250

== ENCOUNTER → 2023-02-01 10:08 | Outpatient (CLI) | payer MEDICARE, SELFPAY ==
--- NOTE | 2023-02-01 10:08 | MM_ITS ---
PROCEDURE INFORMATION: Exam: MG Bilateral Screening 3D Mammography Exam date and time: 02/01/2023 10:18 AM Age: 77 years old Clinical indication: Screening mammogram TECHNIQUE: Imaging protocol: Bilateral Screening tomosynthesis and 2D mammography including computer-aided detection (CAD) when performed. COMPARISON: 1. MG MM DIG SCREENING MAMM BI W/CAD 12/29/2021 10:03 AM 2. MG MM DIG SCREENING MAMM BI W/CAD 12/25/2020 3:10 PM 3. MG MM DIG SCREENING MAMM BI W/CAD 12/19/2019 8:17 AM 4. MG DIG MAMM-SCREEN FLOR 01/07/2019 8:40 AM FINDINGS: MAMMOGRAPHY: Breast composition: There are scattered areas of fibroglandular density. Mass: None. Architectural distortion: No new or suspicious architectural distortion. Calcifications: Stable benign-appearing calcifications are present. No new or suspicious cluster of microcalcifications have developed. Asymmetric density: No new or suspicious asymmetric density is present Skin thickening: None. Axillary adenopathy: None. IMPRESSION: No mammographic evidence of malignancy. Recommend annual screening mammography unless otherwise clinically indicated. ASSESSMENT: BI-RADS category 2: Benign
== END ==
PROVIDERS: PCP Family Medicine; Visit Provider Family Medicine
DX: Z12.31 Encounter for screening mammogram for malignant neoplasm of breast (principal)
CPT/HCPCS: 77063; 77067

== ENCOUNTER → 2023-07-18 23:38 | Outpatient (CLI) | payer MEDICARE, SELFPAY ==
[2023-07-18 18:56] LABS: Basophils # 0.1 K/mm3 (0-0.2); Basophils % 0.8 % (0.1-2.0); Eosinophils # 0.1 K/mm3 (0.0-0.4); Hematocrit 40.3 % (37.0-47.0); Hemoglobin 12.8 g/dL (12.2-16.2); Lymphocytes # 1.7 K/mm3 (0.7-4.5); Lymphocytes % 26.5 % (10-50); Mean Corpuscular HGB Conc 31.6 g/dL (31.8-35.4); Mean Corpuscular Hemoglobin 29.7 pg (27.0-31.2); Monocytes # 0.3 K/mm3 (0.1-1.0); Neutrophils # 4.3 K/mm3 (1.8-7.8); Neutrophils % 66.7 % (37.0-80.0); Platelet Count 139 K/mm3 (142-424); Red Blood Count 4.29 M/mm3 (4.20-5.40); Red Cell Distribution Width 13.5 % (11.5-17.5); White Blood Count 6.5 K/mm3 (4.8-10.8)
[2023-07-18 19:13] LABS: Alanine Aminotransferase 45 U/L (12-78); Albumin Level 4.3 g/dl (3.5-5.0); Albumin/Globulin Ratio 1.5 (1.1-1.8); Alkaline Phosphatase 49 U/L (38-126); Anion Gap 12.4 mEq/L (5-15); Aspartate Amino Transferase 44 U/L (14-36); Bilirubin,Total 0.5 mg/dl (0.2-1.3); Blood Urea Nitrogen 24 mg/dl (7-17); Calcium 9.2 mg/dl (8.4-10.2); Carbon Dioxide 29 mmol/L (22.0-30.0); Chloride 105 mmol/L (98-107); Estimated Glomerular Filt Rate 60 ml/min (>60); GFR (African American) 73 ML/MIN (>60); Globulin 2.8 g/dL (1.3-3.2); Glucose 144 mg/dl (74-100); Potassium 4.4 mmoL/L (3.5-5.1); Sodium 142 mmol/L (136-145); Total Protein,Serum 7.1 g/dl (6.3-8.2)
== END ==
PROVIDERS: PCP Family Medicine; Visit Provider Family Medicine
DX: I11.9 Hypertensive heart disease without heart failure (principal); Z86.79 Personal history of other diseases of the circulatory system; Z87.891 Personal history of nicotine dependence
CPT/HCPCS: 80053; 85025

== ENCOUNTER → 2023-09-19 23:25 | Outpatient (CLI) | payer MEDICARE, SELFPAY ==
[2023-09-19 18:25] LABS: Adenovirus,PCR Not Detected (NotDetected); Bordetella Pertussis Not Detected (NotDetected); Chlamydophila Pneumoniae, PCR Not Detected (NotDetected); Coronavirus 19, PCR Not Detected (NotDetected); Coronavirus 229E Not Detected (NotDetected); Coronavirus NL63 Not Detected (NotDetected); Coronavirus OC43 Not Detected (NotDetected); Coronovirus HKU1,PCR Not Detected (NotDetected); Human Metapneumovirus Not Detected (NotDetected); Influenza A, PCR Not Detected (NotDetected); Influenza AH1, 2009 Not Detected (NotDetected); Influenza AH1, PCR Not Detected (NotDetected); Influenza AH3,PCR Not Detected (NotDetected); Influenza B, PCR Not Detected (NotDetected); Parainfluenza 1, PCR Not Detected (NotDetected); Parainfluenza 2, PCR Not Detected (NotDetected); Parainfluenza 3, PCR Not Detected (NotDetected); Parainfluenza 4, PCR Not Detected (NotDetected); Rhinovirus/Enterovirus Not Detected (NotDetected)
[2023-09-19 18:40] LABS: Basophils % 0.5 % (0.1-2.0); Eosinophils # 0.1 K/mm3 (0.0-0.4); Hematocrit 36.7 % (37.0-47.0); Hemoglobin 12.4 g/dL (12.2-16.2); Lymphocytes # 1.6 K/mm3 (0.7-4.5); Lymphocytes % 24.2 % (10-50); Mean Corpuscular HGB Conc 33.8 g/dL (31.8-35.4); Mean Corpuscular Volume 91.7 fl (81-99); Mean Platelet Volume 9.3 fl (7.4-10.4); Monocytes # 0.3 K/mm3 (0.1-1.0); Monocytes % 4.6 % (1.7-9.3); Neutrophils # 4.4 K/mm3 (1.8-7.8); Neutrophils % 69.7 % (37.0-80.0); Platelet Count 151 K/mm3 (142-424); White Blood Count 6.4 K/mm3 (4.8-10.8)
[2023-09-23 10:51] LABS: Mycoplasma Pneumoniae, PCR Not Detected (NotDetected); Respiratory Syncytial Virus Detected (NotDetected)
== END ==
LOC: LAB.DROPOF 23:25
PROVIDERS: PCP Family Medicine; Visit Provider Family Medicine
DX: I10 Essential (primary) hypertension; J06.9 Acute upper respiratory infection, unspecified; B97.4 Respiratory syncytial virus as the cause of diseases classified elsewhere; R68.89 Other general symptoms and signs; R05.8 Other specified cough; R06.02 Shortness of breath; R53.83 Other fatigue; R19.7 Diarrhea, unspecified; R09.81 Nasal congestion; Z20.828 Contact with and (suspected) exposure to other viral communicable diseases
CPT/HCPCS: 85025; 87581; 87632; 87635; 87798

== ENCOUNTER 2023-10-17 10:30 | Outpatient (CLI) | payer MEDICARE, SELFPAY ==
[2023-10-17 20:31] LABS: Chloride 104 mmol/L (98-107); Potassium 4.4 mmoL/L (3.5-5.1); Sodium 141 mmol/L (136-145)
[2023-10-17 20:33] LABS: Anion Gap 13.4 mEq/L (5-15); Blood Urea Nitrogen 17 mg/dl (7-17); Carbon Dioxide 28 mmol/L (22.0-30.0); Estimated Glomerular Filt Rate 60 ml/min (>60); GFR (African American) 73 ML/MIN (>60); Glucose 133 mg/dl (74-100)
[2023-10-17 21:15] LABS: Free Thyroxine Index 1.5 ug/dL (5.93-13.13); T4 (Thyroxine) 4.5 ug/dl (5.53-11.0); Triiodothryronine (T3) Uptake 33 % (23.5-40.5)
[2023-10-17 21:29] LABS: Thyroid Stimulating Hormone 0.06 uIU/mL (0.465-4.68)
== END 2023-10-17 23:59 ==
LOC: LAB.DROPOF 10-18 10:31
PROVIDERS: PCP Family Medicine; Visit Provider Family Medicine
DX: R94.6 Abnormal results of thyroid function studies (principal); I10 Essential (primary) hypertension; Z87.891 Personal history of nicotine dependence
CPT/HCPCS: 80048; 84436; 84443; 84479

== ENCOUNTER 2024-01-22 10:43 | Emergency (ER) | payer MEDICARE, SELFPAY ==
[2024-01-22] VITALS (13 sets, daily range): BP systolic 150–214; BP diastolic 68–180; PULSE 60–66; RESP 12–20; TEMP 36.5–36.6; O2SAT 95–99; BMI 29.2
--- NOTE | 2024-01-22 10:49 | ECG_ITS ---
APPROVED REPORT Exam: Resting ECG HR:56 bpm ECG Measurements Heart Rate 56 AXES [place] 99 P 155 QRSd 134 QRS 246 QT 482 T 147 QTc 475 Conclusion SINUS BRADYCARDIA WITH MARKED SINUS ARRHYTHMIA WITH SHORT NY INTERVAL INDETERMINATE AXIS RIGHT BUNDLE BRANCH BLOCK [120+ ms QRS DURATION, UPRIGHT V1, 40+ ms S IN I/aVL/V4/V5/V6] INFERIOR MYOCARDIAL INFARCTION , OF INDETERMINATE AGE [40+ ms Q WAVE AND/OR ST/T ABNORMALITY IN II/aVF] ABNORMAL ECG UNCONFIRMED REPORT Electronically signed by : Riley Mehta, 01/22/2024 17:37:22
--- NOTE | 2024-01-22 10:55 | XR_ITS ---
FINAL REPORT CLINICAL HISTORY: fall, hip and knee pain, shortened extremity FINDINGS: LEFT HIPS 2 views were obtained. There is a fracture of the left femoral neck with mild proximal displacement of the distal fracture fragment. Mild degenerative changes are seen. IMPRESSION: Fracture of the left femoral neck as above. Reviewed, Interpreted and Dictated by Nico Luis III, MD Transcribed by Ashley Díaz Authenticated and [facility]
--- NOTE | 2024-01-22 10:55 | XR_ITS ---
FINAL REPORT CLINICAL HISTORY: fall, hip and knee pain, shortened extremity FINDINGS: LEFT KNEE: Three views of the left knee were obtained. There is no acute fracture or dislocation. There are mild degenerative changes. There is no joint effusion. Soft tissues are unremarkable. Vascular calcifications are noted. IMPRESSION: No acute bony abnormality. Reviewed, Interpreted and Dictated by Nico Luis III, MD Transcribed by Ashley Díaz Authenticated and [facility]
--- NOTE | 2024-01-22 10:55 | XR_ITS ---
FINAL REPORT CLINICAL HISTORY: fall, hip and knee pain, shortened extremity FINDINGS: LEFT FEMUR 2 views were obtained. There is a fracture of the femoral neck with mild proximal displacement of the distal fracture fragment. Mild degenerative changes are seen in the left hip. Vascular calcifications are noted. IMPRESSION: Fracture of the femoral neck as above. Reviewed, Interpreted and Dictated by Nico Luis III, MD Transcribed by Ashley Díaz Authenticated and [facility]
--- NOTE | 2024-01-22 10:55 | CT_ITS ---
FINAL REPORT CLINICAL HISTORY: fall, head/neck trauma FINDINGS: Axial CT images of the cervical spine were obtained without contrast. Sagittal and coronal reformatted images were also obtained. This study was performed with techniques to keep radiation doses as low as reasonably achievable (ALARA). Individualized dose reduction techniques using automated exposure control or adjustment of mA and/or kV according to the patient's size were employed. There is no evidence of fracture or dislocation. The bony alignment is normal. There are moderate degenerative changes. There is no evidence of canal stenosis. No paraspinous soft tissue abnormality is seen.There is left carotid artery stenosis. Limited images of the upper thorax are unremarkable. IMPRESSION: No fracture or acute bony abnormality identified. Reviewed, Interpreted and Dictated by Nico Luis III, MD Transcribed by Ashley Díaz Authenticated and [facility]
--- NOTE | 2024-01-22 10:55 | CT_ITS ---
FINAL REPORT CLINICAL HISTORY: fall, head/neck trauma FINDINGS: Axial images of the head were obtained without contrast. Coronal reformatted images were also obtained. This study was performed with techniques to keep radiation doses as low as reasonably achievable (ALARA). Individualized dose reduction techniques using automated exposure control or adjustment of mA and/or kV according to the patient''s size were employed. There is generalized age-appropriate atrophy. Periventricular low-attenuation areas are seen consistent with mild chronic ischemic changes. There is no evidence of intracranial hemorrhage or mass. There is no evidence of acute infarct. There is no evidence of shift of the midline structures. No skull abnormality is seen on the bone window images. IMPRESSION: Atrophy and mild periventricular chronic ischemic changes. No acute intracranial abnormality identified. Reviewed, Interpreted and Dictated by Nico Luis III, MD Transcribed by Ashley Díaz Authenticated and [facility]
--- NOTE | 2024-01-22 10:57 | ED_ITS ---
Discharge Plan Disposition Patient Disposition: Xfer Short-Term Hosp Condition: Fair Prescriptions Prescriptions: No Action melatonin 10 mg tablet 10 mg PO HS PRN (Reason: Sleep) ascorbic acid (vitamin C) 1,000 mg tablet 1 g PO DAILY cyanocobalamin (vitamin B-12) 250 mcg tablet 250 mcg PO DAILY cholecalciferol (vitamin D3) 125 mcg (5,000 unit) capsule 125 mcg PO DAILY biotin 5 mg capsule 5 mg PO DAILY coenzyme Q10 10 mg capsule 10 mg PO DAILY sulfacetamide sodium 10 % drops 1 drp ophthalmic (eye) Q4H Qty: 15 0RF aspirin 81 mg capsule 81 mg PO DAILY hydrocodone-acetaminophen 5-325 mg tablet 1 tab PO NEEDED PRN (Reason: pain) Qty: 30 0RF albuterol sulfate 90 mcg/actuation HFA aerosol inhaler See Rx Instructions .ROUTE .COMPLEX Qty: 1 0RF Dose Instruction: INHALE 1 PUFF FOUR TIMES DAILY NEEDED FOR SHORTNESS OF BREATH OR WHEEZING Rx Instructions: INHALE 1 PUFF FOUR TIMES DAILY NEEDED FOR SHORTNESS OF BREATH OR WHEEZING omeprazole 40 mg capsule,delayed release(DR/EC) 40 mg PO DAILY Qty: 90 3RF rosuvastatin [Crestor] 10 mg tablet 10 mg PO DAILY Qty: 90 3RF sertraline 100 mg tablet See Rx Instructions .ROUTE .COMPLEX Qty: 90 3RF Dose Instruction: TAKE 1 TABLET EVERY DAY Rx Instructions: TAKE 1 TABLET EVERY DAY trazodone 50 mg tablet See Rx Instructions .ROUTE .COMPLEX Qty: 180 3RF Dose Instruction: TAKE 2 TABLETS EVERY NIGHT AT BEDTIME FOR SLEEP Rx Instructions: TAKE 2 TABLETS EVERY NIGHT AT BEDTIME FOR SLEEP ferrous sulfate [FeroSul] 325 mg (65 mg iron) tablet See Rx Instructions .ROUTE .COMPLEX Qty: 180 3RF Dose Instruction: TAKE 1 TABLET TWICE DAILY FOR SUPPLEMENT Rx Instructions: TAKE 1 TABLET TWICE DAILY FOR SUPPLEMENT metoprolol succinate 25 mg tablet extended release 24 hr See Rx Instructions .ROUTE .COMPLEX Qty: 135 3RF Dose Instruction: TAKE 1 TABLET IN THE MORNING AND TAKE 1/2 TABLET IN THE EVENING Rx Instructions: TAKE 1 TABLET IN THE MORNING AND TAKE 1/2 TABLET IN THE EVENING losartan-hydrochlorothiazide 100-12.5 mg tablet See Rx Instructions .ROUTE .COMPLEX Qty: 90 3RF Dose Instruction: TAKE 1 TABLET EVERY DAY Rx Instructions: TAKE 1 TABLET EVERY DAY Stiolto Respimat 2.5-2.5 mcg/actuation mist See Rx Instructions .ROUTE .COMPLEX Qty: 12 3RF Dose Instruction: INHALE 2 PUFFS EVERY DAY FOR COPD Rx Instructions: INHALE 2 PUFFS EVERY DAY FOR COPD prednisone 5 mg tablet See Rx Instructions .ROUTE .COMPLEX Qty: 90 3RF Dose Instruction: TAKE 1 TABLET EVERY DAY FOR CHRONIC PAIN Rx Instructions: TAKE 1 TABLET EVERY DAY FOR CHRONIC PAIN Referrals Follow up/Referrals: Roly Gilbert MD [Primary Care Provider] - See instructions Clinical Impressions Clinical Impression: Femoral neck fracture Qualifiers: Encounter type: initial encounter Fracture type: closed Laterality: left Q ualified Code(s): S72.002A - Fracture of unspecified part of neck of left femur, initial encounter for closed fracture Stand Alone Forms Stand Alone Forms: Transfer Record - ED Discharge ED Provider: Gamal Garcia General Adult HPI General Chief complaint: Extremity Injury, Lower Stated complaint: fall Time Seen by Provider: 01/22/24 10:48 Mode of Arrival: EMS Source of Information: Patient and EMS Limitations: No Limitations Description of Symptoms (Recalled from ER Triage Doc. by RN): EMS states patient fell this am and hurt her right hip. Reports when they arrived the patient was up in chair denies hitting head or LOC. Patient states her foot went numb and she tripped. Upon assessment patient reports pain in right hip that radiates down right leg. History of Present Illness HPI narrative: Patient is an 78-year-old female with history of HTN, HLD, CAD on aspirin who presents due to fall. Patient states she was at home and her wheelchair when her phone rung. She stood up from her wheelchair to answer the phone and sustained a mechanical fall from standing. Patient states she did strike her left head against the wall but denies loss of consciousness. States she experienced immediate pain in her left leg and has been unable to put any weight on the leg. Denies any injury elsewhere. Denies any headache, nausea/vomiting, chest pain, shortness of breath, abdominal pain, lightheadedness, dizziness. Related Data Home Medications Medication Instructions Recorded Confirmed melatonin 10 mg tablet 10 mg PO HS PRN Sleep 05/20/21 10/17/23 ascorbic acid (vitamin C) 1,000 mg 1 g PO DAILY 12/16/21 10/17/23 tablet biotin 5 mg capsule 5 mg PO DAILY 12/16/21 10/17/23 cholecalciferol (vitamin D3) 125 125 mcg PO DAILY 12/16/21 10/17/23 mcg (5,000 unit) capsule coenzyme Q10 10 mg capsule 10 mg PO DAILY 12/16/21 10/17/23 cyanocobalamin (vitamin B-12) 250 250 mcg PO DAILY 12/16/21 10/17/23 mcg tablet aspirin 81 mg capsule 81 mg PO DAILY 07/22/22 10/17/23 Previous Rx's Medication Instructions Recorded hydrocodone 5 mg-acetaminophen 325 1 tab PO NEEDED PRN pain #30 10/14/22 mg tablet tabs albuterol sulfate 90 mcg/actuation See Rx Instructions .Route 01/10/23 aerosol inhaler .COMPLEX #1 ea omeprazole 40 mg capsule,delayed 40 mg PO DAILY stomach #90 caps 04/27/23 release rosuvastatin 10 mg tablet (Crestor) 10 mg PO DAILY #90 tabs 04/28/23 sertraline 100 mg tablet See Rx Instructions .Route 09/19/23 .COMPLEX #90 tabs trazodone 50 mg tablet See Rx Instructions .Route 10/03/23 .COMPLEX #180 tabs sulfacetamide sodium 10 % eye drops 1 drp ophthalmic (eye) Q4H 10/17/23 blepharitis #15 mL ferrous sulfate 325 mg (65 mg See Rx Instructions .Route 10/20/23 iron) tablet (FeroSul) .COMPLEX #180 tabs metoprolol succinate 25 mg See Rx Instructions .Route 10/20/23 tablet,extended release 24 hr .COMPLEX #135 tabs losartan 100 See Rx Instructions .Route 11/08/23 mg-hydrochlorothiazide 12.5 mg .COMPLEX #90 tabs tablet tiotropium 2.5 mcg-olodaterol 2.5 See Rx Instructions .Route 12/05/23 mcg/actuation mist for inhalation .COMPLEX #12 grams (Stiolto Respimat) prednisone 5 mg tablet See Rx Instructions .Route 01/08/24 .COMPLEX #90 tabs Allergies Allergy/AdvReac Type Severity Reaction Status Date / Time cephalexin [CEPHALEXIN] Allergy Unknown hives Verified 10/17/23 10:03 ibuprofen [From Motrin] Allergy hives Verified 10/17/23 10:03 [facility] Disclaimer: The information contained in this section may have been updated after the patient was seen, as this information can be updated by other users. Medical History (Updated 01/22/24 @ 15:23 by Gamal Garcia MD) Blepharitis URI, acute Abnormal thyroid function test History of ASCVD (atherosclerotic cardiovascular disease) Dyspnea Chest pain Social History Smoking Status: Never smoker alcohol intake: never substance use type: denies use current occupational status: retired Travel in the last 8 weeks: [employer] [place] household members: none housing: house current occupational exposures/hazards: No caffeine: No ROS Obtained: Yes All systems reviewed & no additional complaints except as documented Musculoskeletal Musculoskeletal: Reports arthralgias Physical Exam General General appearance: alert and in no apparent distress Head Head exam: atraumatic, normocephalic and normal inspection Eye Eye exam: Present normal appearance, PERRL and EOMI ENT ENT exam: Present normal exam, normal oropharynx, mucous membranes moist, TM's normal bilaterally and normal external ear exam Neck Neck exam: Present normal inspection, full ROM and trachea midline; Absent meningismus or lymphadenopathy Chest Chest inspection: Present normal inspection and symmetric chest wall rise; Absent tenderness Respiratory Respiratory exam: Present normal lung sounds bilaterally; Absent respiratory distress Cardiovascular Cardiovascular exam: Present regular rate and normal rhythm; Absent JVD Abdominal Exam Abdominal exam: Present soft and normal bowel sounds; Absent distention, tenderness or guarding Extremities Exam Extremities exam: Present normal inspection, full ROM, normal capillary refill and other (Left hip, thigh, knee tenderness to palpation. Left lower extremity shortened, externally rotated. Distal pulses, movement and sensation intact.); Absent calf tenderness Back Exam Back exam: Present normal inspection; Absent tenderness Neurological Exam Neurological exam: Present alert and oriented X3 Psychiatric Psychiatric exam: Present normal affect and normal mood Skin Skin exam: Present warm, dry, intact, normal color and other (Skin tear left elbow with no tenderness to palpation.) Lymphatic Lymphatic Findings: no adenopathy Medical Decision Making Everardo Inquiry Pt receiving controlled substance: No Vital Signs: 01/22/24 10:43 01/22/24 10:58 01/22/24 11:01 Temperature 97.7 F Temperature Source Oral Pulse Rate 60 60 Pulse Rate [Right] 60 Respiratory Rate 16 Blood Pressure 152/75 H 158/85 H Blood Pressure [Right Arm] 185/72 H Blood Pressure Mean 109 109 Blood Pressure Mean [Right Arm] 109 Blood Pressure Source [Right Arm] Automatic Cuff 02 Sat by Pulse Oximetry 98 98 96 Oxygen Delivery Method Nasal Cannula Oxygen Flow Rate (LPM) 2 01/22/24 11:55 01/22/24 12:01 01/22/24 12:31 Temperature Temperature Source Pulse Rate 61 60 62 Pulse Rate [Right] Respiratory Rate 20 20 20 Blood Pressure 214/180 H 176/74 H 184/69 H Blood Pressure [Right Arm] Blood Pressure Mean 191 114 107 Blood Pressure Mean [Right Arm] Blood Pressure Source [Right Arm] 02 Sat by Pulse Oximetry 97 96 96 Oxygen Delivery Method Oxygen Flow Rate (LPM) 01/22/24 13:01 01/22/24 13:31 01/22/24 14:00 Temperature Temperature Source Pulse Rate 61 62 64 Pulse Rate [Right] Respiratory Rate 20 Blood Pressure 178/91 H 174/71 H 168/76 H Blood Pressure [Right Arm] Blood Pressure Mean 96 Blood Pressure Mean [Right Arm] Blood Pressure Source [Right Arm] 02 Sat by Pulse Oximetry 99 98 97 Oxygen Delivery Method Nasal Cannula Nasal Cannula Oxygen Flow Rate (LPM) 2 2 01/22/24 14:30 Temperature Temperature Source Pulse Rate 66 Pulse Rate [Right] Respiratory Rate Blood Pressure 161/76 H Blood Pressure [Right Arm] Blood Pressure Mean Blood Pressure Mean [Right Arm] Blood Pressure Source [Right Arm] 02 Sat by Pulse Oximetry 98 Oxygen Delivery Method Room Air Nasal Cannula Oxygen Flow Rate (LPM) 2 Lab Data Lab Results 01/22/24 10:46: WBC 8.6, RBC 3.88 L, Hgb 12.2, Hct 36.8 L, MCV 94.7, MCH 31.3 H, MCHC 33.1, RDW 13.6, Plt Count 146, MPV 8.8, Neut % (Auto) 78.4, Lymph % (Auto) 15.7, Webb % (Auto) 4.5, Eos % (Auto) 0.7, Baso % (Auto) 0.7, Neut # (Auto) 6.7, Lymph # (Auto) 1.4, Webb # (Auto) 0.4, Eos # (Auto) 0.1, Baso # (Auto) 0.1, Sodium 139, Potassium 3.8, Chloride 105, Carbon Dioxide 30, Anion Gap 7.8, BUN 18 H, Creatinine 0.90, Estimated Creat Clear 53, Estimated GFR 60, Est GFR ( Amer) 73, Glucose 143 H, Calcium 9.6, Total Bilirubin 0.7, AST 56 H, ALT 43, Alkaline Phosphatase 61, Troponin I < 0.01, Total Protein 6.6, Albumin 4.0, Globulin 2.6, Albumin/Globulin Ratio 1.5 01/22/24 14:12: Troponin I < 0.01 01/22/24 10:46 01/22/24 10:46 Orders (Tests/Meds): ED MEDICATIONS Discontinued Medications Generic Name Dose Route Start Last Admin Trade Name Freq PRN Reason Stop Dose Admin Fentanyl Citrate 50 mcg 01/22/24 10:55 01/22/24 11:22 Fentanyl 100mcg/2ml Vial IV 01/22/24 10:56 50 mcg ONCE ONE Administration Morphine Sulfate 4 mg 01/22/24 14:30 01/22/24 14:52 Morphine 4mg/Ml Syringe IV 01/22/24 14:31 4 mg ONCE ONE Administration Tetanus/Reduced Diphtheria/Acell Pertussis 0.5 ml 01/22/24 11:03 01/22/24 11:22 Tet/Diphth/Pert-Adult 0.5ml Syringe IM 01/22/24 11:04 0.5 ml .ONCE ONE Administration ORDERS Category Date Time Status CT bony pelvis Stat Cat Scan 01/22/24 11:[address] cervical spine wo con Stat Cat Scan 01/22/24 10:[address] head/brain wo con Stat Cat Scan 01/22/24 10:55 Completed Femur XR left 2 views [XR femur LT 2V] Stat Exams 01/22/24 10:55 Completed Hip XR left minimum 2 views [XR hip LT 2-3V w/pelvis] Exams 01/22/24 10:55 Completed Stat XR knee LT 3V Stat Exams 01/22/24 10:55 Completed CBC w/Auto Diff [Complete Blood Count Auto Diff] Stat Lab 01/22/24 10:46 Completed CMP [Comprehensive Metabolic Panel] Stat Lab 01/22/24 10:46 Completed Troponin I Q3H Lab 01/22/24 14:12 Completed Troponin I Q3H Lab 01/22/24 17:00 Ordered Troponin I Stat Lab 01/22/24 10:46 Completed Urinalysis and Microscopic Stat Lab 01/22/24 15:15 Ordered ECG Data Tracing #1: EKG obtained and interpreted by me demonstrating sinus bradycardia with sinus arrhythmia, right bundle branch block, nonspecific ST segment changes with no signs of acute ischemia. Medical Decision Narrative: In summary, patient is 78-year-old female, evaluated in the emergency department today due to fall. On arrival, patient is hypertensive, hemodynamically stable, otherwise afebrile with normal vital signs. On examination, patient has left leg tenderness with shortened, externally rotated extremity. Differential diagnosis includes but is not limited to hip fracture, dislocation, intracranial injury. Patient given IV fentanyl, IV morphine for pain control. Workup initiated including CBC, CMP, troponin, x-rays of left hip/femur/knee, CT head without contrast, CT cervical spine without contrast, CT pelvis without contrast. Labs independently interpreted by me and significant for no acute findings. Imaging independently interpreted by me and significant for x-ray of left hip demonstrating femoral neck fracture. Also seen on x-ray of femur, CT pelvis without contrast. CT head without contrast obtained and interpreted by me showing no bleed, otherwise no acute findings. CT cervical spine without contrast obtained and reviewed demonstrating no acute injury. On reevaluation, patient's pain is controlled and she is resting comfortably. Dr. Stone, orthopedics, contacted and case discussed regarding femoral neck fracture. He is out of town and unable to assist at this time. Patient will require transfer for operative intervention. Dr. Stone, orthopedics at [facility], contacted and case discussed. Recommend admission to hospitalist team. Dr. Sandy, hospitalist at [place], contacted and case discussed. Patient accepted for transfer. I considered the utility of obtaining full trauma CT scans, but decided against this because this would not exchange trouble shooter. I considered admitting the patient to the hospital for pain control and likely operative management, and in shared decision-making with patient and family at bedside, decided on transfer to outside hospital. Critical Care Critical Care Time Critical Care Time: No
[2024-01-22 11:02] LABS: Basophils # 0.1 K/mm3 (0-0.2); Basophils % 0.7 % (0.1-2.0); Eosinophils # 0.1 K/mm3 (0.0-0.4); Eosinophils % 0.7 % (0.1-12.0); Hematocrit 36.8 % (37.0-47.0); Hemoglobin 12.2 g/dL (12.2-16.2); Lymphocytes # 1.4 K/mm3 (0.7-4.5); Lymphocytes % 15.7 % (10-50); Mean Corpuscular HGB Conc 33.1 g/dL (31.8-35.4); Mean Corpuscular Hemoglobin 31.3 pg (27.0-31.2); Mean Corpuscular Volume 94.7 fl (81-99); Mean Platelet Volume 8.8 fl (7.4-10.4); Monocytes # 0.4 K/mm3 (0.1-1.0); Monocytes % 4.5 % (1.7-9.3); Neutrophils # 6.7 K/mm3 (1.8-7.8); Neutrophils % 78.4 % (37.0-80.0); Platelet Count 146 K/mm3 (142-424); Red Blood Count 3.88 M/mm3 (4.20-5.40); Red Cell Distribution Width 13.6 % (11.5-17.5); White Blood Count 8.6 K/mm3 (4.8-10.8)
--- NOTE | 2024-01-22 11:02 | PC.NURSE ---
RAD at BS
[2024-01-22 11:06] LABS: Chloride 105 mmol/L (98-107); Sodium 139 mmol/L (136-145)
[2024-01-22 11:07] LABS: Potassium 3.8 mmoL/L (3.5-5.1)
--- NOTE | 2024-01-22 11:08 | PC.NURSE ---
XR AT BEDSIDE
[2024-01-22 11:09] LABS: Alanine Aminotransferase 43 U/L (12-78); Albumin/Globulin Ratio 1.5 (1.1-1.8); Alkaline Phosphatase 61 U/L (38-126); Anion Gap 7.8 mEq/L (5-15); Aspartate Amino Transferase 56 U/L (14-36); Bilirubin,Total 0.7 mg/dl (0.2-1.3); Blood Urea Nitrogen 18 mg/dl (7-17); Carbon Dioxide 30 mmol/L (22.0-30.0); Creatinine Clearance Estimated 53 mL/min (50-200); Estimated Glomerular Filt Rate 60 ml/min (>60); GFR (African American) 73 ML/MIN (>60); Globulin 2.6 g/dL (1.3-3.2); Total Protein,Serum 6.6 g/dl (6.3-8.2)
[2024-01-22 11:10] LABS: Calcium 9.6 mg/dl (8.4-10.2); Glucose 143 mg/dl (74-100)
[2024-01-22] MEDS: FENTANYL 100MCG/2ML VIAL 50 MCG IV (11:22)
[2024-01-22] MEDS: TET/DIPHTH/PERT-ADULT 0.5ML SYRINGE 0.5 ML IM (11:22)
--- NOTE | 2024-01-22 11:39 | CT_ITS ---
FINAL REPORT CLINICAL HISTORY: Left hip pain after a fall FINDINGS: CT PELVIS WITHOUT CONTRAST Thin section axial CT with sagittal and coronal reconstructions. This study was performed with techniques to keep radiation doses as low as reasonably achievable (ALARA). Individualized dose reduction techniques using automated exposure control or adjustment of mA and/or kV according to the patient's size were employed. There is a fracture of the left femoral neck with proximal displacement of the distal fracture fragment. No dislocation is seen. No other fracture is identified. There is lateral subcutaneous hemorrhage. Note is made of sigmoid diverticulosis. The patient is status post hysterectomy. IMPRESSION: Fracture of the left femoral neck with proximal displacement of the distal fracture fragment. Reviewed, Interpreted and Dictated by Nico Luis III, MD Transcribed by Ashley Díaz Authenticated and [facility]
[2024-01-22 11:45] LABS: Troponin I < 0.01 ng/ml (0.00-0.034)
--- NOTE | 2024-01-22 13:13 | PC.NURSE ---
called [facility] for transfer to [place] , they are to call back
--- NOTE | 2024-01-22 14:13 | PC.NURSE ---
called maye for update, she was going to tell coordinator for an update
--- NOTE | 2024-01-22 14:33 | PC.NURSE ---
Rounded on pt, family at bedside. Pt reports increased pain and asking for food/drink. MD notified, new orders for Morphine and lara cath placement. He would like to keep pt NPO until he has spoken with ortho at [facility]. Pt & family updated.
[2024-01-22 14:42] LABS: Troponin I < 0.01 ng/ml (0.00-0.034)
[2024-01-22] MEDS: MORPHINE 4MG/ML SYRINGE 4 MG IV (14:52)
--- NOTE | 2024-01-22 15:11 | PC.NURSE ---
Dr Stone from [place] on with Dr Garcia
--- NOTE | 2024-01-22 15:20 | PC.NURSE ---
Updated pt & family on Dr. Stone in [facility] accepted and awaiting hospitalist call back. Flood cath placed wo difficulty. Oral swabs given to pt to keep mouth moist for comfort d/t continued NPO status.
--- NOTE | 2024-01-22 15:34 | PC.NURSE ---
Updated pt & family of pt being accepted by hospitalist at [facility]- Dr. Sandy. Room assignment received, Med/Surg room 126.
[2024-01-22 15:36] LABS: Microscopic, Urine URINE MICROSCOPIC (MICROSCOPIC)
[2024-01-22 15:39] LABS: Appearance,Urine CLEAR (Clear); Bilirubin,Urine Negative (Negative); Blood, Urine Negative (Negative); Color,Urine YELLOW (Yellow); Glucose,Urine (UA) Negative (Negative); Ketones,Urine Negative (Negative); Leukocyte Esterase,Urine 1+ (Negative); Nitrate,Urine POSITIVE (Negative); PH,Urine 5.5 (5.0-8.5); Protein,Urine Negative (Negative); Urobilinogen,Urine 0.2 EU/dl (0.2)
[2024-01-22 15:52] LABS: Bacteria,Urine 2+ /lpf; RBC,Urine Occasional #/hpf (0-3); Squamous Epithelial Cell,Urine Occasional #/hpf (0-5)
--- NOTE | 2024-01-22 16:10 | PC.NURSE ---
[facility] & family updated on this and pt's daughter signed transfer record.
[2024-01-22] MEDS: LEVOFLOXACIN/D5W 750 MG/150 ML 750 MG/150 ML PIGGYBACK 100 MG IV (16:35)
--- NOTE | 2024-01-25 23:29 | PC.NURSE ---
pt was transferred to [place]. Called and spoke with Romero @ [facility] and faxed preliminary urine culture to [phone]
--- NOTE | 2024-01-27 11:54 | PC.NURSE ---
faxed final urine culture results to [phone]
== END 2024-01-22 16:45 | disposition short-term general hospital (02) ==
PROVIDERS: Emergency Provider Student in an Organized Health Care Education/Training Program; PCP Family Medicine
DX: S72.002A Fracture of unspecified part of neck of left femur, initial encounter for closed fracture (principal); N39.0 Urinary tract infection, site not specified; B96.29 Other Escherichia coli [E. coli] as the cause of diseases classified elsewhere; R94.31 Abnormal electrocardiogram [ECG] [EKG]; I11.9 Hypertensive heart disease without heart failure; I25.10 Atherosclerotic heart disease of native coronary artery without angina pectoris; E78.5 Hyperlipidemia, unspecified; Z95.5 Presence of coronary angioplasty implant and graft; W18.30XA Fall on same level, unspecified, initial encounter; Z23 Encounter for immunization
CPT/HCPCS: 51702; 70450; 72125; 72192; 73502; 73552; 73562; 80053; 81001; 84484; 85025; 87086; 90471; 90715; 93005; 96365; 96372; 96375; 99285; J1956

== ENCOUNTER 2024-03-25 11:54 | Outpatient (CLI) | payer MEDICARE, SELFPAY ==
--- NOTE | 2024-03-25 11:59 | XR_ITS ---
FINAL REPORT CLINICAL HISTORY: left hip pain X 2 MONTHS FINDINGS: LEFT HIP 2 views of the left hip and AP view of the pelvis were obtained. Patient is status post left hip arthroplasty. There are mild degenerative changes of the right hip. Vascular calcifications are noted. There is no acute fracture or dislocation. Visualized joint spaces are normally aligned. There is no acute soft tissue abnormality. IMPRESSION: No acute bony abnormality. Reviewed, Interpreted and Dictated by Nico Luis III, MD Transcribed by Graciela Serrato Authenticated and [facility]
== END 2024-03-25 23:59 | disposition home or self-care (01) ==
LOC: RAD 11:56
PROVIDERS: PCP Family Medicine; Visit Provider Family Medicine
DX: M25.552 Pain in left hip (principal)
CPT/HCPCS: 73502

== ENCOUNTER 2024-08-08 19:02 | Emergency (ER) | payer MEDICARE, SELFPAY ==
[2024-08-08 19:05] VITALS: BP 175/88; PULSE 71; RESP 19; TEMP 36.5; O2SAT 96; BMI 27.6
--- NOTE | 2024-08-08 19:40 | ED_ITS ---
Discharge Plan Disposition Patient Disposition: Home, Self-Care Condition: Good Prescriptions Prescriptions: New levofloxacin 750 mg tablet 750 mg PO DAILY 7 Days Qty: 7 0RF oxycodone 5 mg tablet 5 mg PO TID PRN (Reason: pain) 3 Days Qty: 10 0RF Discontinued hydrocodone-acetaminophen 5-325 mg tablet 1 tab PO NEEDED PRN (Reason: pain) Qty: 30 0RF No Action melatonin 10 mg tablet 10 mg PO HS PRN (Reason: Sleep) ascorbic acid (vitamin C) 1,000 mg tablet 1 g PO DAILY cyanocobalamin (vitamin B-12) 250 mcg tablet 250 mcg PO DAILY cholecalciferol (vitamin D3) 125 mcg (5,000 unit) capsule 125 mcg PO DAILY biotin 5 mg capsule 5 mg PO DAILY coenzyme Q10 10 mg capsule 10 mg PO DAILY sulfacetamide sodium 10 % drops 1 drp ophthalmic (eye) Q4H Qty: 15 0RF Xarelto 10 mg tablet PO ferrous sulfate [FeroSul] 325 mg (65 mg iron) tablet See Rx Instructions .ROUTE .COMPLEX Qty: 180 3RF Dose Instruction: TAKE 1 TABLET TWICE DAILY FOR SUPPLEMENT Rx Instructions: TAKE 1 TABLET ONCE DAILY FOR SUPPLEMENT aspirin 81 mg capsule 81 mg PO DAILY albuterol sulfate 90 mcg/actuation HFA aerosol inhaler See Rx Instructions .ROUTE .COMPLEX Qty: 1 0RF Dose Instruction: INHALE 1 PUFF FOUR TIMES DAILY NEEDED FOR SHORTNESS OF BREATH OR WHEEZING Rx Instructions: INHALE 1 PUFF FOUR TIMES DAILY NEEDED FOR SHORTNESS OF BREATH OR WHEEZING sertraline 100 mg tablet See Rx Instructions .ROUTE .COMPLEX Qty: 90 3RF Dose Instruction: TAKE 1 TABLET EVERY DAY Rx Instructions: TAKE 1 TABLET EVERY DAY trazodone 50 mg tablet See Rx Instructions .ROUTE .COMPLEX Qty: 180 3RF Dose Instruction: TAKE 2 TABLETS EVERY NIGHT AT BEDTIME FOR SLEEP Rx Instructions: TAKE 2 TABLETS EVERY NIGHT AT BEDTIME FOR SLEEP metoprolol succinate 25 mg tablet extended release 24 hr See Rx Instructions .ROUTE .COMPLEX Qty: 135 3RF Dose Instruction: TAKE 1 TABLET IN THE MORNING AND TAKE 1/2 TABLET IN THE EVENING Rx Instructions: TAKE 1 TABLET IN THE MORNING AND TAKE 1/2 TABLET IN THE EVENING losartan-hydrochlorothiazide 100-12.5 mg tablet See Rx Instructions .ROUTE .COMPLEX Qty: 90 3RF Dose Instruction: TAKE 1 TABLET EVERY DAY Rx Instructions: TAKE 1 TABLET EVERY DAY Stiolto Respimat 2.5-2.5 mcg/actuation mist See Rx Instructions .ROUTE .COMPLEX Qty: 12 3RF Dose Instruction: INHALE 2 PUFFS EVERY DAY FOR COPD Rx Instructions: INHALE 2 PUFFS EVERY DAY FOR COPD prednisone 5 mg tablet See Rx Instructions .ROUTE .COMPLEX Qty: 90 3RF Dose Instruction: TAKE 1 TABLET EVERY DAY FOR CHRONIC PAIN Rx Instructions: TAKE 1 TABLET EVERY DAY FOR CHRONIC PAIN omeprazole 40 mg capsule,delayed release(DR/EC) See Rx Instructions .ROUTE .COMPLEX Qty: 90 3RF Dose Instruction: TAKE 1 CAPSULE EVERY DAY FOR STOMACH Rx Instructions: TAKE 1 CAPSULE EVERY DAY FOR STOMACH rosuvastatin 10 mg tablet 10 mg PO DAILY Qty: 90 3RF Referrals Follow up/Referrals: Roly Gilbert MD [Primary Care Provider] - See instructions Activity Restrictions/Add. Instructions Additional Instructions/Restrictions: As we discussed, it is likely that the pain in your left side is due to a kidney infection, with your urinalysis showing strong evidence of a urinary tract infection that is significant and your pain not being in the middle of your back. Your CT scan showed no kidney stones but it did show compression fractures of your back in 2 different places that appeared old on the scans. Please follow-up with your primary care doctor. I have prescribed pain medications as well as antibiotics. Please return with any new or worsening symptoms. Clinical Impressions Clinical Impression: Pyelonephritis Instructions Patient Instructions: DI for Kidney Infection Print Language Print Language: [place] Konger Discharge ED Provider: Thor Main Adult HPI General Chief complaint: Fall Stated complaint: AO 07/24/24 1400 middle back injury from fall Time Seen by Provider: 08/08/24 19:40 History of Present Illness HPI narrative: The patient presents with a chief complaint of pain in the side after a fall. The pain has been gradually worsening and comes in waves. It is localized to one side and does not spread to the front. She denies any pain in the middle area. She has a history of taking baby aspirin daily. There is no prior history of kidney stones. She reports no pain in the affected area immediately after the fall, with the pain beginning later on. She denies any headache, shortness of breath, or pain during urination. There is no report of fever or other symptoms. She reports falling flat and not specifically on the affected side. The pain developed gradually after the fall, becoming noticeable during a trip to [place]. The pain is described as being in the bend of her side. She mentions that her urine got a little dark but attributes this to drinking plenty of water. She denies any blood in urine, stools, or vomit. She reports being unable to get still due to the waves of pain. Please note that above description of symptoms, in this electronic medical record under categorization of recalled from ER triage doctor by RN are reflective of an initial nursing assessment, however, is not reflective of my full history and physical exam that was personally taken and clarified. Consequentially, this preceding description of symptoms, which may include the patient's categorized chief complaint in the EMR, do not reflect my personal clinical impression, and the ultimate description of history of present illness and patient stated complaints should be deferred to this section of the note. Unless stated otherwise or congruent with this section of the note, additional signs, symptoms, or incongruence should be interpreted as inaccurate with my clinical impression. Related Data Home Medications ?Medication ?Instructions ?Recorded ?Confirmed melatonin 10 mg tablet 10 mg PO HS PRN Sleep 05/20/21 06/04/24 ascorbic acid (vitamin C) 1,000 mg 1 g PO DAILY 12/16/21 06/04/24 tablet biotin 5 mg capsule 5 mg PO DAILY 12/16/21 06/04/24 cholecalciferol (vitamin D3) 125 125 mcg PO DAILY 12/16/21 06/04/24 mcg (5,000 unit) capsule coenzyme Q10 10 mg capsule 10 mg PO DAILY 12/16/21 06/04/24 cyanocobalamin (vitamin B-12) 250 250 mcg PO DAILY 12/16/21 06/04/24 mcg tablet aspirin 81 mg capsule 81 mg PO DAILY 07/22/22 06/04/24 rivaroxaban 10 mg tablet (Xarelto) mg PO 02/20/24 06/04/24 Previous Rx's ?Medication ?Instructions ?Recorded albuterol sulfate 90 mcg/actuation See Rx Instructions .Route 01/10/23 aerosol inhaler .COMPLEX #1 ea sertraline 100 mg tablet See Rx Instructions .Route 09/19/23 .COMPLEX #90 tabs trazodone 50 mg tablet See Rx Instructions .Route 10/03/23 .COMPLEX #180 tabs sulfacetamide sodium 10 % eye drops 1 drp ophthalmic (eye) Q4H 10/17/23 blepharitis #15 mL metoprolol succinate 25 mg See Rx Instructions .Route 10/20/23 tablet,extended release 24 hr .COMPLEX #135 tabs losartan 100 See Rx Instructions .Route 11/08/23 mg-hydrochlorothiazide 12.5 mg .COMPLEX #90 tabs tablet tiotropium 2.5 mcg-olodaterol 2.5 See Rx Instructions .Route 12/05/23 mcg/actuation mist for inhalation .COMPLEX #12 grams (Stiolto Respimat) prednisone 5 mg tablet See Rx Instructions .Route 01/08/24 .COMPLEX #90 tabs ferrous sulfate 325 mg (65 mg See Rx Instructions .Route 02/20/24 iron) tablet (FeroSul) .COMPLEX #180 tabs omeprazole 40 mg capsule,delayed See Rx Instructions .Route 05/08/24 release .COMPLEX #90 caps rosuvastatin 10 mg tablet 10 mg PO DAILY #90 tabs 06/25/24 levofloxacin 750 mg tablet 750 mg PO DAILY 7 days #7 tabs 08/08/24 oxycodone 5 mg tablet 5 mg PO TID PRN pain 3 days #10 08/08/24 tabs Allergies Allergy/AdvReac Type Severity Reaction Status Date / Time cephalexin [CEPHALEXIN] Allergy Unknown hives Verified 06/04/24 09:55 ibuprofen [From Motrin] Allergy hives Verified 06/04/24 09:55 [facility] Disclaimer: The information contained in this section may have been updated after the patient was seen, as this information can be updated by other users. Medical History (Updated 08/08/24 @ 22:13 by Thor Main MD) Displacement of internal left hip prosthesis Blepharitis URI, acute Abnormal thyroid function test History of ASCVD (atherosclerotic cardiovascular disease) Dyspnea Chest pain Surgical History Status post left hip replacement History of total left hip replacement Social History Smoking Status: Former smoker tobacco type: cigarettes alcohol intake: never substance use type: denies use current occupational status: retired Travel in the last 8 weeks: Inside the [place] household members: none housing: house current occupational exposures/hazards: No caffeine: No Other Medical History Have you received the Flu Vaccine for this season: Yes Have you received the Pneumonia Vaccine: Yes ROS Obtained: Yes other As per HPI Physical Exam General General appearance: alert and in no apparent distress Head Head exam: atraumatic and normocephalic Eye Eye exam: Present normal appearance Neck Neck exam: Present normal inspection Chest Chest inspection: Present normal inspection and symmetric chest wall rise Respiratory Respiratory exam: Present normal lung sounds bilaterally; Absent respiratory distress Cardiovascular Cardiovascular exam: Present regular rate and normal rhythm Abdominal Exam Abdominal exam: Present soft Neurological Exam Neurological exam: Present alert and oriented X3 Psychiatric Psychiatric exam: Present normal affect and normal mood Skin Skin exam: Present warm and dry Other Other exam information: No midline back pain, no external evidence of injury, left CVA tenderness to percussion, no overlying skin changes. Medical Decision Making Medical Records Medical records reviewed: Yes I reviewed the patient's medical records. Screening: Per USPSTF and CDC recommendations, given the prevalence of disease in our region, it is our hospital?s policy to screen for HIV and viral Hepatitis for all patients aged 18 and over and those with ongoing risk factors. [place] Inquiry Pt receiving controlled substance: No Vital Signs: 08/08/24 19:05 08/08/24 21:01 08/08/24 21:41 Temperature 97.7 F Temperature Source Oral Pulse Rate 64 64 Pulse Rate [Right] 71 Respiratory Rate 19 Blood Pressure 150/66 H 129/60 Blood Pressure [Left Arm] 175/88 H Blood Pressure Mean [Left Arm] 117 Blood Pressure Source [Left Arm] Automatic Cuff 02 Sat by Pulse Oximetry 96 94 L 93 L Oxygen Delivery Method Room Air 08/08/24 21:55 08/08/24 22:10 Temperature 97.7 F Temperature Source Oral Pulse Rate 62 75 Pulse Rate [Right] Respiratory Rate 17 Blood Pressure 158/71 H 155/71 H Blood Pressure [Left Arm] Blood Pressure Mean [Left Arm] Blood Pressure Source [Left Arm] 02 Sat by Pulse Oximetry 95 Oxygen Delivery Method Room Air Lab Data Lab Results 08/08/24 20:05: Urine Color Yellow, Urine Appearance Clear, Urine pH 6.0, Ur Specific Rogers 1.025, Urine Protein Negative, Urine Glucose (UA) Negative, Urine Ketones Negative, Urine Blood Negative, Urine Nitrate Positive, Urine Bilirubin Negative, Urine Urobilinogen 0.2, Ur Leukocyte Esterase Trace, Urine RBC Occasional, Urine WBC 20-50, Ur Squamous Epith Cells 5-10, Urine Bacteria 4+ 08/08/24 20:10: WBC 11.2 H, RBC 4.05 L, Hgb 12.5, Hct 36.6 L, MCV 90.3, MCH 30.9, MCHC 34.2, RDW 14.0, Plt Count 235, MPV 8.1, Neut % (Auto) 71.1, Lymph % (Auto) 21.5, Crockett % (Auto) 5.8, Eos % (Auto) 0.9, Baso % (Auto) 0.7, Neut # (Auto) 8.0 H, Lymph # (Auto) 2.4, Crockett # (Auto) 0.7, Eos # (Auto) 0.1, Baso # (Auto) 0.1, PT 10.8, INR 0.96, Sodium 142, Potassium 4.3, Chloride 106, Carbon Dioxide 27, Anion Gap 13.3, BUN 24 H, Creatinine 0.80, Estimated Creat Clear 51, Estimated GFR 69, Est GFR ( Amer) 83, Glucose 108 H, Calcium 9.5, Total Bilirubin 0.7, AST 35, ALT 24, Alkaline Phosphatase 86, Total Protein 8.3 H D, Albumin 4.8, Globulin 3.5 H, Albumin/Globulin Ratio 1.4, Lipase 84, HIV 1&2 Antibody Rapid Nonreactive 08/08/24 20:10 08/08/24 20:10 Orders (Tests/Meds): ED MEDICATIONS Discontinued Medications Generic Name Dose Route Start Last Admin Trade Name Freq PRN Reason Stop Dose Admin Hydromorphone HCl 0.5 mg 08/08/24 19:51 08/08/24 20:15 Hydromorphone 4 Mg/Ml Syringe IV 08/08/24 19:52 0.5 mg ONCE ONE Administration Iopamidol 75 ml 08/08/24 20:43 08/08/24 20:44 Iopamidol-370 (76%);100ml Bottle IV 08/08/24 20:44 75 ml ONCE ONE Administration Methocarbamol 1,000 mg 08/08/24 19:51 08/08/24 20:15 Methocarbamol 500mg Tablet PO 08/08/24 19:52 1,000 mg ONCE STA Administration Sodium Chloride 10 ml 08/08/24 20:43 08/08/24 20:44 Sodium Chloride 0.9% 10ml Syr (Rad Only) IV 09/07/24 20:42 10 ml NEEDED PRN Administration Maintain IV Site Sodium Chloride 10 ml 08/08/24 21:45 Sodium Chloride 0.9% 10ml Flush Syringe IV 09/07/24 21:44 NEEDED PRN Maintain IV Site ORDERS Category Date Time Status CT abdomen pelvis w con Stat Cat Scan 08/08/24 19:52 Completed CBC w/Auto Diff [Complete Blood Count Auto Diff] Stat Lab 08/08/24 20:10 Completed CMP [Comprehensive Metabolic Panel] Stat Lab 08/08/24 20:10 Completed HIV (1&2) Antibody Rapid Stat Lab 08/08/24 20:10 Completed Hep C Ab with Reflex to RNA Stat Lab 08/08/24 20:10 Received Lipase Stat Lab 08/08/24 20:10 Completed PT INR [Prothrombin Time INR] Stat Lab 08/08/24 20:10 Completed Urinalysis and Microscopic Stat Lab 08/08/24 20:05 Completed Urine Culture Stat Micro 08/08/24 20:05 Results Medical Decision Narrative: Patient with history and exam per above presenting for evaluation of left flank pain Diagnoses considered include urolithiasis, pyelonephritis, fracture, intra- abdominal hemorrhage, among others. ED workup and treatment included: ED MEDICATIONS Discontinued Medications Generic Name Dose Route Start Last Admin Trade Name Freq PRN Reason Stop Dose Admin Hydromorphone HCl 0.5 mg 08/08/24 19:51 08/08/24 20:15 Hydromorphone 4 Mg/Ml Syringe IV 08/08/24 19:52 0.5 mg ONCE ONE Administration Iopamidol 75 ml 08/08/24 20:43 08/08/24 20:44 Iopamidol-370 (76%);100ml Bottle IV 08/08/24 20:44 75 ml ONCE ONE Administration Methocarbamol 1,000 mg 08/08/24 19:51 08/08/24 20:15 Methocarbamol 500mg Tablet PO 08/08/24 19:52 1,000 mg ONCE STA Administration Sodium Chloride 10 ml 08/08/24 20:43 08/08/24 20:44 Sodium Chloride 0.9% 10ml Syr (Rad Only) IV 09/07/24 20:42 10 ml NEEDED PRN Administration Maintain IV Site Sodium Chloride 10 ml 08/08/24 21:45 Sodium Chloride 0.9% 10ml Flush Syringe IV 09/07/24 21:44 NEEDED PRN Maintain IV Site ORDERS Category Date Time Status CT abdomen pelvis w con Stat Cat Scan 08/08/24 19:52 Completed CBC w/Auto Diff [Complete Blood Count Auto Diff] Stat Lab 08/08/24 20:10 Completed CMP [Comprehensive Metabolic Panel] Stat Lab 08/08/24 20:10 Completed HIV (1&2) Antibody Rapid Stat Lab 08/08/24 20:10 Completed Hep C Ab with Reflex to RNA Stat Lab 08/08/24 20:10 Received Lipase Stat Lab 08/08/24 20:10 Completed PT INR [Prothrombin Time INR] Stat Lab 08/08/24 20:10 Completed Urinalysis and Microscopic Stat Lab 08/08/24 20:05 Completed Urine Culture Stat Micro 08/08/24 20:05 Results Labs were independently interpreted by me, significant for leukocytosis, bacteriuria, pyuria Imaging was independently visualized and interpreted by me, significant for no acute findings, chronic compression fractures, repeat evaluation again confirms no focal tenderness to palpation overlying reported compression fractures. Please refer to radiology report for full details. My clinical impression at this time is most consistent with pyelonephritis, after shared decision making with patient and family member will elect to treat at home although admission was considered and offered I discussed my clinical impression with patient and answered all questions. At this time, the evidence for any other entities in the differential is insufficient to warrant any further testing or ED observation. This was explained to the patient. The patient was advised that persistent or worsening symptoms require further evaluation. Critical Care Critical Care Time Critical Care Time: No
--- NOTE | 2024-08-08 19:51 | PC.NURSE ---
Dr. Main at bedside with u/s.
--- NOTE | 2024-08-08 19:52 | CT_ITS ---
PROCEDURE INFORMATION: Exam: CT Abdomen And Pelvis With Contrast Exam date and time: 08/08/2024 8:46 PM Age: 79 years old Clinical indication: Abdominal pain; Acute; Additional info: L flank pain, fall on 9, dysuria TECHNIQUE: Imaging protocol: Computed tomography of the abdomen and pelvis with contrast. Radiation optimization: All CT scans at this facility use at least one of these dose optimization techniques: automated exposure control; mA and/or kV adjustment per patient size (includes targeted exams where dose is matched to clinical indication); or iterative reconstruction. Contrast material: ISOVUE; Contrast volume: 75 ml; Contrast route: IV; COMPARISON: CT BONY PELVIS 01/22/2024 11:42 AM FINDINGS: Liver: Normal. No mass. Gallbladder and biliary ducts: Normal. No calcified stones. No ductal dilation. Pancreas: Normal. No ductal dilation. Spleen: Normal. No splenomegaly. Adrenal glands: Normal. No mass. Kidneys and ureters: Normal. No hydronephrosis. Stomach and bowel: Increased quantity of stool seen throughout the colon. Diverticulosis without diverticulitis of the sigmoid segment. Appendix: Normal appendix Intraperitoneal space: No visible free peritoneal fluid. Vasculature: Unremarkable. No abdominal aortic aneurysm. Lymph nodes: Unremarkable. No enlarged lymph nodes. Urinary bladder: Thickened urinary bladder probably unchanged given differences in technique. Reproductive: Unremarkable as visualized. Bones/joints: Left hip arthroplasty. Chronic appearing compression fractures at the T12 and T10 positions of the lumbar spine. Soft tissues: Unremarkable. IMPRESSION: 1. No visible acute intra-abdominal injury. 2. Mild constipation. 3. Mild compression fractures at the T10 and T12 positions are likely chronic. If abnormal physical examination at this region, MRI
[2024-08-08 20:10] LABS: Microscopic, Urine URINE MICROSCOPIC (MICROSCOPIC)
[2024-08-08 20:14] LABS: Appearance,Urine CLEAR (Clear); Bilirubin,Urine Negative (Negative); Blood, Urine Negative (Negative); Color,Urine YELLOW (Yellow); Glucose,Urine (UA) Negative (Negative); Ketones,Urine Negative (Negative); Leukocyte Esterase,Urine TRACE (Negative); Nitrate,Urine POSITIVE (Negative); Protein,Urine Negative (Negative); Specific Gravity, Urine 1.025 (1.005-1.030); Urobilinogen,Urine 0.2 EU/dl (0.2)
[2024-08-08] MEDS: METHOCARBAMOL 500MG TABLET 1000 MG PO (20:15)
[2024-08-08 20:18] LABS: Basophils # 0.1 K/mm3 (0-0.2); Basophils % 0.7 % (0.1-2.0); Eosinophils # 0.1 K/mm3 (0.0-0.4); Eosinophils % 0.9 % (0.1-12.0); Hematocrit 36.6 % (37.0-47.0); Hemoglobin 12.5 g/dL (12.2-16.2); Lymphocytes # 2.4 K/mm3 (0.7-4.5); Lymphocytes % 21.5 % (10-50); Mean Corpuscular HGB Conc 34.2 g/dL (31.8-35.4); Mean Corpuscular Hemoglobin 30.9 pg (27.0-31.2); Mean Corpuscular Volume 90.3 fl (81-99); Mean Platelet Volume 8.1 fl (7.4-10.4); Monocytes # 0.7 K/mm3 (0.1-1.0); Monocytes % 5.8 % (1.7-9.3); Neutrophils % 71.1 % (37.0-80.0); Platelet Count 235 K/mm3 (142-424); Red Blood Count 4.05 M/mm3 (4.20-5.40); White Blood Count 11.2 K/mm3 (4.8-10.8)
[2024-08-08 20:27] LABS: Alanine Aminotransferase 24 U/L (12-78); Albumin Level 4.8 g/dl (3.5-5.0); Albumin/Globulin Ratio 1.4 (1.1-1.8); Alkaline Phosphatase 86 U/L (38-126); Anion Gap 13.3 mEq/L (5-15); Aspartate Amino Transferase 35 U/L (14-36); Bilirubin,Total 0.7 mg/dl (0.2-1.3); Blood Urea Nitrogen 24 mg/dl (7-17); Calcium 9.5 mg/dl (8.4-10.2); Carbon Dioxide 27 mmol/L (22.0-30.0); Chloride 106 mmol/L (98-107); Creatinine Clearance Estimated 51 mL/min (50-200); Estimated Glomerular Filt Rate 69 ml/min (>60); GFR (African American) 83 ML/MIN (>60); Globulin 3.5 g/dL (1.3-3.2); Glucose 108 mg/dl (74-100); Lipase 84 U/L (23-300); Potassium 4.3 mmoL/L (3.5-5.1); Sodium 142 mmol/L (136-145); Total Protein,Serum 8.3 g/dl (6.3-8.2)
[2024-08-08 20:28] LABS: INR 0.96 (0.9-1.1); Prothrombin Time 10.8 seconds (10.1-12.5)
[2024-08-08 20:29] LABS: RBC,Urine Occasional #/hpf (0-3); WBC,Urine 20-50 #/hpf (0-3)
[2024-08-08 20:30] LABS: Bacteria,Urine 4+ /lpf
--- NOTE | 2024-08-08 20:42 | PC.NURSE ---
pt to ct scan
[2024-08-08] MEDS: SODIUM CHLORIDE 0.9% 10ML SYR (RAD ONLY) 10 ML IV (20:44)
[2024-08-08] MEDS: IOPAMIDOL-370 (76%);100ML BOTTLE 75 ML IV (20:44)
[2024-08-08 21:01] VITALS: BP 150/66; PULSE 64; O2SAT 94
[2024-08-08 21:34] LABS: HIV (1&2) Antibody Rapid NONREACTIVE (NONREACTIVE)
[2024-08-08 21:41] VITALS: BP 129/60; PULSE 64; O2SAT 93
[2024-08-08 21:55] VITALS: BP 158/71; PULSE 62; O2SAT 95
[2024-08-08 22:10] VITALS: BP 155/71; PULSE 75; RESP 17; TEMP 36.5; O2SAT 96
[2024-08-10 08:51] LABS: HCV Ab Non Reactive (Non Reactive)
--- NOTE | 2024-08-14 08:06 | PC.NURSE ---
Urine culture discussed with , call pt for medicine change. Pt POA states they seen yesterday who prescribed bactrim for pt and she is improving with a fu on Monday
== END 2024-08-08 22:27 | disposition home or self-care (01) ==
PROVIDERS: Emergency Provider Emergency Medicine; PCP Family Medicine
DX: N12 Tubulo-interstitial nephritis, not specified as acute or chronic (principal); R10.32 Left lower quadrant pain; W19.XXXA Unspecified fall, initial encounter; Y93.9 Activity, unspecified; Y92.9 Unspecified place or not applicable
CPT/HCPCS: 74177; 80053; 81001; 83690; 85025; 85610; 86803; 87086; 87088; 87186; 87389; 96374; 99285; J1171; Q9967

== ENCOUNTER 2024-08-20 12:45 | Outpatient (CLI) | payer MEDICARE, SELFPAY | END 2024-08-20 23:59 | disposition home or self-care (01) | LOC: LAB.DROPOF 08-21 10:04 | PROVIDERS: PCP Family Medicine; Visit Provider Family Medicine | DX: N39.0 Urinary tract infection, site not specified (principal) | CPT/HCPCS: 87077; 87086; 87088 ==

== ENCOUNTER 2024-08-27 12:02 | Inpatient (IN) | payer MEDICARE, SELFPAY ==
[2024-08-27] VITALS (11 sets, daily range): BP systolic 128–163; BP diastolic 78–99; PULSE 71–100; RESP 18; TEMP 36.6–36.9; O2SAT 95–98; BMI 26.8; BMI 28.1
--- NOTE | 2024-08-27 12:05 | ECG_ITS ---
APPROVED REPORT Exam: Resting ECG HR:81 bpm ECG Measurements Heart Rate 81 AXES TX 122 P 12 QRSd 122 QRS -51 QT 409 T 43 QTc 446 Conclusion SINUS RHYTHM LEFT AXIS DEVIATION RIGHT BUNDLE BRANCH BLOCK Electronically signed by : HARRY VANCE, 08/28/2024 08:18:02
--- NOTE | 2024-08-27 12:20 | PC.NURSE ---
DR VANCE AT BEDSIDE
--- NOTE | 2024-08-27 12:29 | PC.NURSE ---
WARM BLANKET PROVIDED, DAUGHTERS AT BEDSIDE
--- NOTE | 2024-08-27 12:33 | CT_ITS ---
FINAL REPORT CLINICAL HISTORY: altered mental status, found down FINDINGS: Axial CT images of the cervical spine were obtained without contrast. Sagittal and coronal reformatted images were also obtained. This study was performed with techniques to keep radiation doses as low as reasonably achievable (ALARA). Individualized dose reduction techniques using automated exposure control or adjustment of mA and/or kV according to the patient's size were employed. Motion artifact is identified on many of the images. Mild and moderate degenerative changes are present. There is mild anterolisthesis of C3 on 4 and C4 and 5. There is no significant canal stenosis. There is a subacute medial right clavicle fracture. IMPRESSION: Multilevel degenerative changes of the cervical spine. Subacute medial right clavicle fracture. Reviewed, Interpreted and Dictated by Nico Luis III, MD Transcribed by Stephania Mcbride Authenticated and . [facility]
--- NOTE | 2024-08-27 12:33 | XR_ITS ---
FINAL REPORT CLINICAL HISTORY: altered mental status FINDINGS: SINGLE VIEW CHEST There is cardiomegaly. The mediastinum is unremarkable. There is mild scarring. The lungs are otherwise clear. There is no pneumothorax. IMPRESSION: No acute process. Reviewed, Interpreted and Dictated by Nico Luis III, MD Transcribed by Stephania Mcbride Authenticated and [facility]
--- NOTE | 2024-08-27 12:33 | CT_ITS ---
FINAL REPORT TECHNIQUE: Pre-and postcontrast images of the abdomen and pelvis were performed by computed tomography. Extensive 3-D reconstruction images were performed. A CTA was performed. This study was performed with techniques to keep radiation doses as low as reasonably achievable (ALARA). Individualized dose reduction techniques using automated exposure control or adjustment of mA and/or kV according to the patient''s size were employed. CLINICAL HISTORY: distention, peritonitis FINDINGS: ABDOMEN/PELVIS: The lung bases are clear. Precontrast images demonstrate no evidence of nephrolithiasis. No adrenal masses are identified. The liver, spleen and pancreas are unremarkable. The appendix is normal. There is sigmoid diverticulosis without evidence of diverticulitis. There is a moderately distended bladder with mild bladder wall thickening. There are postoperative changes from left hip arthroplasty. CTA: The abdominal aorta is proper caliber. There is diffuse vascular calcification. The celiac axis and CATALINA are patent. There is mild stenosis of the proximal SMA. There is calcified plaque of the bilateral renal arteries. There is mild stenosis of the right renal artery. There is moderate to severe stenosis of the left renal artery. The iliac arteries are normal. IMPRESSION: Mild stenosis of the right renal artery. Moderate to severe stenosis of the left renal artery. Mild stenosis of the proximal SMA. Moderately distended bladder with wall thickening. Reviewed, Interpreted and Dictated by Nico Luis III, MD Transcribed by Stephania Mcbride Authenticated and . [facility]
--- NOTE | 2024-08-27 12:34 | CT_ITS ---
FINAL REPORT CLINICAL HISTORY: altered mental status, found down FINDINGS: Thin section axial CT images of the chest were obtained with contrast. 3D reformatted images were also obtained. This study was performed with techniques to keep radiation doses as low as reasonably achievable (ALARA). Individualized dose reduction techniques using automated exposure control or adjustment of mA and/or kV according to the patient's size were employed. There is no evidence of pulmonary embolism. There is no evidence of thoracic aortic aneurysm or dissection. There is no evidence of mediastinal or hilar mass or adenopathy. There is no evidence of pulmonary mass or nodule. There is mild bibasilar atelectasis. Mild emphysema is identified. There is a calcified granuloma in the right lung. The osseous structures demonstrate multiple subacute right anterior rib fractures. IMPRESSION: No evidence of pulmonary embolism. Mild bibasilar atelectasis. Multiple subacute right anterior rib fractures. Reviewed, Interpreted and Dictated by Nico Luis III, MD Transcribed by Stephania Mcbride Authenticated and [facility]
--- NOTE | 2024-08-27 12:34 | CT_ITS ---
FINAL REPORT TECHNIQUE: Thin section axial CT with IV contrast supplemented with multiplanar reconstruction under CT angiogram protocol. This study was performed with techniques to keep radiation doses as low as reasonably achievable (ALARA). Individualized dose reduction techniques using automated exposure control or adjustment of mA and/or kV according to the patient''s size were employed. NASCET criteria was utilized during interpretation. CLINICAL HISTORY: altered mental status, found down FINDINGS: Aortic arch: Arch shows no significant narrowing. Great vessel origins are widely patent. Right carotid: No significant stenosis is seen of the cervical common or internal carotid artery. Left carotid: No significant stenosis is seen of the cervical common or internal carotid artery. Vertebral: Left vertebral artery is dominant. No significant stenosis is present. IMPRESSION: There is no evidence of stenosis. Reviewed, Interpreted and Dictated by Nico Luis III, MD Transcribed by Stephania Mcbride Authenticated and [facility]
--- NOTE | 2024-08-27 12:34 | CT_ITS ---
FINAL REPORT TECHNIQUE: Thin section axial CT with IV contrast supplemented with multiplanar reconstruction under CT angiogram protocol. 3-D reconstructions were performed. This study was performed with techniques to keep radiation doses as low as reasonably achievable (ALARA). Individualized dose reduction techniques using automated exposure control or adjustment of mA and/or kV according to the patient''s size were employed. CLINICAL HISTORY: altered mental status, found down FINDINGS: The distal vertebral, basilar and distal internal carotid arteries have an unremarkable appearance. No aneurysm is seen. Major intracranial vessels are patent without significant stenosis. IMPRESSION: There is no evidence of aneurysm or major branch occlusion. Reviewed, Interpreted and Dictated by Nico Luis III, MD Transcribed by Stephania Mcbride Authenticated and [facility]
--- NOTE | 2024-08-27 12:35 | CT_ITS ---
FINAL REPORT CLINICAL HISTORY: altered mental status, found down COMPARISON: 01/22/2024 FINDINGS: Axial images of the head were obtained without contrast. Coronal reformatted images were also obtained. This study was performed with techniques to keep radiation doses as low as reasonably achievable (ALARA). Individualized dose reduction techniques using automated exposure control or adjustment of mA and/or kV according to the patient's size were employed. There is generalized age-appropriate atrophy. Periventricular low-attenuation areas are seen consistent with mild chronic ischemic changes. There is mild ventriculomegaly, stable. There is no evidence of intracranial hemorrhage or mass. There is no evidence of acute infarct. There is no evidence of shift of the midline structures. No skull abnormality is seen on the bone window images. IMPRESSION: Atrophy and mild periventricular chronic ischemic changes. No acute intracranial abnormality identified. Reviewed, Interpreted and Dictated by Nico Luis III, MD Transcribed by Stephania Mcbride Authenticated and . [facility]
[2024-08-27 12:43] LABS: VBG HCO3 25.3 mmol/L (23-30); VBG Oxygen Saturation 45.4 % (50-70); VBG PH 7.31 mmol/L (7.31-7.41); VBG Total CO2 26.9 mmol/L (23-27)
[2024-08-27 12:45] LABS: Basophils # 0.1 K/mm3 (0-0.2); Basophils % 0.6 % (0.1-2.0); Eosinophils # 0.1 K/mm3 (0.0-0.4); Eosinophils % 0.6 % (0.1-12.0); Hematocrit 35.2 % (37.0-47.0); Hemoglobin 12.1 g/dL (12.2-16.2); Lymphocytes # 1.2 K/mm3 (0.7-4.5); Mean Corpuscular HGB Conc 34.5 g/dL (31.8-35.4); Mean Corpuscular Volume 89.7 fl (81-99); Mean Platelet Volume 7.8 fl (7.4-10.4); Monocytes # 0.5 K/mm3 (0.1-1.0); Monocytes % 4.3 % (1.7-9.3); Neutrophils # 10.3 K/mm3 (1.8-7.8); Neutrophils % 84.7 % (37.0-80.0); Platelet Count 158 K/mm3 (142-424); Red Blood Count 3.93 M/mm3 (4.20-5.40); Red Cell Distribution Width 14.3 % (11.5-17.5); White Blood Count 12.2 K/mm3 (4.8-10.8)
[2024-08-27 12:46] LABS: Lactate Venous 2.5 mmol/L (0.4-2.0)
[2024-08-27 12:48] LABS: Alanine Aminotransferase 20 U/L (12-78); Albumin/Globulin Ratio 1.6 (1.1-1.8); Alkaline Phosphatase 79 U/L (38-126); Aspartate Amino Transferase 36 U/L (14-36); Bilirubin,Total 0.9 mg/dl (0.2-1.3); Blood Urea Nitrogen 25 mg/dl (7-17); Calcium 9.2 mg/dl (8.4-10.2); Carbon Dioxide 26 mmol/L (22.0-30.0); Chloride 106 mmol/L (98-107); Creatine Kinase 268 U/L (30-135); Creatinine Clearance Estimated 51 mL/min (50-200); Estimated Glomerular Filt Rate 80 ml/min (>60); GFR (African American) 97 ML/MIN (>60); Globulin 2.5 g/dL (1.3-3.2); Glucose 139 mg/dl (74-100); Lipase 42 U/L (23-300); Magnesium 1.6 mg/dl (1.6-2.3); Sodium 140 mmol/L (136-145); Total Protein,Serum 6.5 g/dl (6.3-8.2)
[2024-08-27 12:52] LABS: Activated Partial Thrombo Time 27.3 seconds (22.8-30.6); INR 0.97 (0.9-1.1); Prothrombin Time 10.9 seconds (10.1-12.5)
[2024-08-27] MEDS: LACTATED RINGERS 1000ML 1,000 ML 999 ML IV (13:00)
[2024-08-27 13:01] LABS: Troponin I 0.03 ng/ml (0.00-0.034)
[2024-08-27 13:03] LABS: Acetaminophen < 10 ug/ml (10-30); Ethyl Alcohol < 10 mg/dl (0-10); Salicylate < 1.0 mg/dL (2.0-20.0)
[2024-08-27 13:19] LABS: Thyroid Stimulating Hormone 1.19 uIU/mL (0.465-4.68)
--- NOTE | 2024-08-27 13:19 | ED_ITS ---
Discharge Plan Disposition Patient Disposition: Admitted Chief Complaint: Fall Prescriptions Prescriptions: No Action melatonin 10 mg tablet 10 mg PO HS PRN (Reason: Sleep) ascorbic acid (vitamin C) 1,000 mg tablet 1 g PO DAILY cyanocobalamin (vitamin B-12) 250 mcg tablet 250 mcg PO DAILY cholecalciferol (vitamin D3) 125 mcg (5,000 unit) capsule 125 mcg PO DAILY biotin 5 mg capsule 5 mg PO DAILY coenzyme Q10 10 mg capsule 10 mg PO DAILY sulfacetamide sodium 10 % drops 1 drp ophthalmic (eye) Q4H Qty: 15 0RF Xarelto 10 mg tablet PO ferrous sulfate [FeroSul] 325 mg (65 mg iron) tablet See Rx Instructions .ROUTE .COMPLEX Qty: 180 3RF Dose Instruction: TAKE 1 TABLET TWICE DAILY FOR SUPPLEMENT Rx Instructions: TAKE 1 TABLET ONCE DAILY FOR SUPPLEMENT oxycodone 5 mg tablet 5 mg PO TID PRN (Reason: back pain) Qty: 90 0RF aspirin 81 mg capsule 81 mg PO DAILY pregabalin 75 mg capsule 75 mg PO BID Qty: 60 3RF prednisone 5 mg tablet 5 mg PO DAILY Qty: 42 0RF albuterol sulfate 90 mcg/actuation HFA aerosol inhaler See Rx Instructions .ROUTE .COMPLEX Qty: 1 0RF Dose Instruction: INHALE 1 PUFF FOUR TIMES DAILY NEEDED FOR SHORTNESS OF BREATH OR WHEEZING Rx Instructions: INHALE 1 PUFF FOUR TIMES DAILY NEEDED FOR SHORTNESS OF BREATH OR WHEEZING sertraline 100 mg tablet See Rx Instructions .ROUTE .COMPLEX Qty: 90 3RF Dose Instruction: TAKE 1 TABLET EVERY DAY Rx Instructions: TAKE 1 TABLET EVERY DAY trazodone 50 mg tablet See Rx Instructions .ROUTE .COMPLEX Qty: 180 3RF Dose Instruction: TAKE 2 TABLETS EVERY NIGHT AT BEDTIME FOR SLEEP Rx Instructions: TAKE 2 TABLETS EVERY NIGHT AT BEDTIME FOR SLEEP metoprolol succinate 25 mg tablet extended release 24 hr See Rx Instructions .ROUTE .COMPLEX Qty: 135 3RF Dose Instruction: TAKE 1 TABLET IN THE MORNING AND TAKE 1/2 TABLET IN THE EVENING Rx Instructions: TAKE 1 TABLET IN THE MORNING AND TAKE 1/2 TABLET IN THE EVENING losartan-hydrochlorothiazide 100-12.5 mg tablet See Rx Instructions .ROUTE .COMPLEX Qty: 90 3RF Dose Instruction: TAKE 1 TABLET EVERY DAY Rx Instructions: TAKE 1 TABLET EVERY DAY Stiolto Respimat 2.5-2.5 mcg/actuation mist See Rx Instructions .ROUTE .COMPLEX Qty: 12 3RF Dose Instruction: INHALE 2 PUFFS EVERY DAY FOR COPD Rx Instructions: INHALE 2 PUFFS EVERY DAY FOR COPD omeprazole 40 mg capsule,delayed release(DR/EC) See Rx Instructions .ROUTE .COMPLEX Qty: 90 3RF Dose Instruction: TAKE 1 CAPSULE EVERY DAY FOR STOMACH Rx Instructions: TAKE 1 CAPSULE EVERY DAY FOR STOMACH rosuvastatin 10 mg tablet 10 mg PO DAILY Qty: 90 3RF sulfamethoxazole-trimethoprim [Bactrim DS] 800-160 mg tablet 1 tab PO BID 7 Days Qty: 14 0RF Referrals Follow up/Referrals: Roly Gilbert MD [Primary Care Provider] - See instructions Clinical Impressions Clinical Impression: Acute UTI, Weakness, Fall, Elevated CK Print Language Print Language: Kinyarwanda Discharge ED Provider: Jovanny Hunt General Adult HPI General Chief complaint: Fall Stated complaint: Fall Time Seen by Provider: 08/27/24 12:13 Mode of Arrival: EMS Source of Information: Patient and EMS Limitations: Altered Mental Status Description of Symptoms (Recalled from ER Triage Doc. by RN): pt found laying on the kitchen floor this morning. altered mental status. abrasion to r cheek. c/o belly pain. History of Present Illness HPI narrative: Please note that above description of symptoms, in this electronic medical record under categorization of recalled from ER triage doctor by RN are reflective of an initial nursing assessment, however, is not reflective of my full history and physical exam that was personally taken and clarified. Consequentially, this preceding description of symptoms, which may include the patient's categorized chief complaint in the EMR, do not reflect my personal clinical impression, and the ultimate description of history of present illness and patient stated complaints should be deferred to this section of the note. Unless stated otherwise or congruent with this section of the note, additional signs, symptoms, or incongruence should be interpreted as inaccurate with my clinical impression. Related Data Home Medications ?Medication ?Instructions ?Recorded ?Confirmed melatonin 10 mg tablet 10 mg PO HS PRN Sleep 05/20/21 08/20/24 ascorbic acid (vitamin C) 1,000 mg 1 g PO DAILY 12/16/21 08/20/24 tablet biotin 5 mg capsule 5 mg PO DAILY 12/16/21 08/20/24 cholecalciferol (vitamin D3) 125 125 mcg PO DAILY 12/16/21 08/20/24 mcg (5,000 unit) capsule coenzyme Q10 10 mg capsule 10 mg PO DAILY 12/16/21 08/20/24 cyanocobalamin (vitamin B-12) 250 250 mcg PO DAILY 12/16/21 08/20/24 mcg tablet aspirin 81 mg capsule 81 mg PO DAILY 07/22/22 08/20/24 rivaroxaban 10 mg tablet (Xarelto) mg PO 02/20/24 08/20/24 Previous Rx's ?Medication ?Instructions ?Recorded albuterol sulfate 90 mcg/actuation See Rx Instructions .Route 01/10/23 aerosol inhaler .COMPLEX #1 ea sertraline 100 mg tablet See Rx Instructions .Route 09/19/23 .COMPLEX #90 tabs trazodone 50 mg tablet See Rx Instructions .Route 10/03/23 .COMPLEX #180 tabs sulfacetamide sodium 10 % eye drops 1 drp ophthalmic (eye) Q4H 10/17/23 blepharitis #15 mL metoprolol succinate 25 mg See Rx Instructions .Route 10/20/23 tablet,extended release 24 hr .COMPLEX #135 tabs losartan 100 See Rx Instructions .Route 11/08/23 mg-hydrochlorothiazide 12.5 mg .COMPLEX #90 tabs tablet tiotropium 2.5 mcg-olodaterol 2.5 See Rx Instructions .Route 12/05/23 mcg/actuation mist for inhalation .COMPLEX #12 grams (Stiolto Respimat) ferrous sulfate 325 mg (65 mg See Rx Instructions .Route 02/20/24 iron) tablet (FeroSul) .COMPLEX #180 tabs omeprazole 40 mg capsule,delayed See Rx Instructions .Route 05/08/24 release .COMPLEX #90 caps rosuvastatin 10 mg tablet 10 mg PO DAILY #90 tabs 06/25/24 oxycodone 5 mg tablet 5 mg PO TID PRN back pain #90 tabs 08/13/24 sulfamethoxazole 800 1 tab PO BID 7 days #14 tabs 08/14/24 mg-trimethoprim 160 mg tablet (Bactrim DS) prednisone 5 mg tablet 5 mg PO DAILY #42 tabs 08/20/24 pregabalin 75 mg capsule 75 mg PO BID pain #60 caps 08/20/24 Allergies Allergy/AdvReac Type Severity Reaction Status Date / Time cephalexin [CEPHALEXIN] Allergy Unknown hives Verified 08/20/24 11:59 ibuprofen [From Motrin] Allergy hives Verified 08/20/24 11:59 [facility] Disclaimer: The information contained in this section may have been updated after the patient was seen, as this information can be updated by other users. Medical History UTI (urinary tract infection) E coli infection Chronic thoracic back pain Displacement of internal left hip prosthesis Blepharitis URI, acute Abnormal thyroid function test History of ASCVD (atherosclerotic cardiovascular disease) Dyspnea Chest pain Surgical History Status post left hip replacement History of total left hip replacement Social History Smoking Status: Never smoker alcohol intake: never substance use type: denies use current occupational status: retired Travel in the last 8 weeks: Inside the [place] household members: none housing: house current occupational exposures/hazards: No caffeine: No Other Medical History Have you received the Flu Vaccine for this season: Yes Have you received the Pneumonia Vaccine: Yes ROS Obtained: Yes All systems reviewed & no additional complaints except as documented Physical Exam General General appearance: alert and in no apparent distress Head Head exam: normocephalic and other (Bruising on the right side of the face) Eye Eye exam: Present normal appearance, PERRL and EOMI Neck Neck exam: Present normal inspection, full ROM, trachea midline and other (Cervical collar) Respiratory Respiratory exam: Present normal lung sounds bilaterally; Absent respiratory distress, wheezes, stridor, accessory muscle use or prolonged expiratory phase Cardiovascular Cardiovascular exam: Present regular rate, normal rhythm and other (Pulses equal symmetric in upper and lower extremities) Abdominal Exam Abdominal exam: Present soft, distention, tenderness and guarding; Absent rebound, rigidity or pulsatile mass Extremities Exam Extremities exam: Present full ROM and tenderness (Superficial skin tear overlying right elbow.); Absent edema Neurological Exam Neurological exam: Present alert, oriented X3 and CN II-XII intact; Absent motor sensory deficit Skin Skin exam: Present warm and dry; Absent diaphoresis or erythema Medical Decision Making Medical Records Medical records reviewed: Yes I reviewed the patient's medical records. Screening: Per USPSTF and CDC recommendations, given the prevalence of disease in our region, it is our hospital?s policy to screen for HIV and viral Hepatitis for all patients aged 18 and over and those with ongoing risk factors. Everardo Inquiry Pt receiving controlled substance: No Everardo was queried for this patient: No Vital Signs: 08/27/24 12:02 08/27/24 12:30 08/27/24 13:00 Temperature 98.4 F Temperature Source Oral Pulse Rate 75 71 Pulse Rate [Right] 81 Respiratory Rate 18 Blood Pressure 159/79 H 159/79 H Blood Pressure [Right Arm] 163/99 H Blood Pressure Mean Blood Pressure Mean [Right Arm] 120 02 Sat by Pulse Oximetry 98 96 98 Oxygen Delivery Method Nasal Cannula Oxygen Flow Rate (LPM) 1 08/27/24 15:00 Temperature Temperature Source Pulse Rate 75 Pulse Rate [Right] Respiratory Rate Blood Pressure 151/88 H Blood Pressure [Right Arm] Blood Pressure Mean 105 Blood Pressure Mean [Right Arm] 02 Sat by Pulse Oximetry 96 Oxygen Delivery Method Oxygen Flow Rate (LPM) Lab Data Lab Results 08/27/24 12:15: WBC 12.2 H, RBC 3.93 L, Hgb 12.1 L, Hct 35.2 L, MCV 89.7, MCH 31.0, MCHC 34.5, RDW 14.3, Plt Count 158, MPV 7.8, Neut % (Auto) 84.7 H, Lymph % (Auto) 10.0, [place] % (Auto) 4.3, Eos % (Auto) 0.6, Baso % (Auto) 0.6, Neut # (Auto) 10.3 H, Lymph # (Auto) 1.2, [place] # (Auto) 0.5, Eos # (Auto) 0.1, Baso # (Auto) 0.1, PT 10.9, INR 0.97, APTT 27.3, Sodium 140, Potassium 4.0, Chloride 106, Carbon Dioxide 26, Anion Gap 12.0, BUN 25 H, Creatinine 0.70, Estimated Creat Clear 51, Estimated GFR 80, Est GFR ( Amer) 97, Glucose 139 H, Calcium 9.2, Magnesium 1.6, Total Bilirubin 0.9, AST 36, ALT 20, Alkaline Phosphatase 79, Total Creatine Kinase 268 H, Troponin I 0.03, Total Protein 6.5, Albumin 4.0, Globulin 2.5, Albumin/Globulin Ratio 1.6, Lipase 42, TSH 1.19, Free T4 0.62 L, Salicylates < 1.0 L, Acetaminophen < 10 L, Plasma/Serum Alcohol < 10 08/27/24 12:33: VBG pH 7.31, VBG pCO2 52.0 H, VBG pO2 25.0 L, VBG HCO3 25.3, VBG Total CO2 26.9, VBG O2 Saturation 45.4 L, VBG Base Excess -1.0, VBG Lactic Acid 2.5 H 08/27/24 14:40: Urine Color Yellow, Urine Appearance Cloudy, Urine pH 6.0, Ur Specific [place] 1.010, Urine Protein Trace, Urine Glucose (UA) Negative, Urine Ketones Negative, Urine Blood 1+ A, Urine Nitrate Positive, Urine Bilirubin Negative, Urine Urobilinogen 0.2, Ur Leukocyte Esterase 1+ A, Urine RBC 3-5, Urine WBC 3-5, Ur Squamous Epith Cells 3-5, Urine Bacteria 1+, Urine Opiates Screen Negative, Urine Methadone Screen Negative, Ur Barbituates Screen Negative, Ur Phencyclidine Scrn Negative, Ur Amphetamines Screen Negative, U Benzodiazepines Scrn Negative, Urine Cocaine Screen Negative, U Marijuana (THC) Screen Negative 08/27/24 12:15 08/27/24 12:15 Orders (Tests/Meds): ED MEDICATIONS Generic Name Dose Route Start Last Admin Trade Name Freq PRN Reason Stop Dose Admin Levofloxacin/Dextrose 750 mg in 150 mls @ 100 mls/hr 08/27/24 15:06 08/27/24 15:17 Levofloxacin 750mg/150ml Premix IV 08/27/24 16:35 100 mls/hr ONCE ONE Administration Discontinued Medications Generic Name Dose Route Start Last Admin Trade Name Freq PRN Reason Stop Dose Admin Lactated Ringer's 1,000 mls @ 999 mls/hr 08/27/24 12:33 08/27/24 13:00 Lactated Ringer's 1000 Ml Bag IV 08/27/24 13:33 999 mls/hr .Q1H1M ONE Administration Iopamidol 160 ml 08/27/24 13:33 08/27/24 13:36 Iopamidol-370 (76%);100ml Bottle IV 08/27/24 13:34 160 ml ONCE ONE Administration Sodium Chloride 10 ml 08/27/24 13:33 11/12/24 13:35 Sodium Chloride 0.9% 10ml Syr (Rad Only) IV 08/27/24 13:34 10 ml ONCE ONE Administration Sodium Chloride 50 ml 08/27/24 13:33 08/27/24 13:35 0.9 % Sodium Chloride 50 Ml Vial IV 08/27/24 13:34 50 ml ONCE ONE Administration Sodium Chloride 50 ml 08/27/24 13:35 08/27/24 13:36 0.9 % Sodium Chloride 50 Ml Vial IV 08/27/24 13:36 50 ml ONCE ONE Administration ORDERS Category Date Time Status CT angio abdomen pelvis Stat Cat Scan 08/27/24 12:[address] angio chest - dissection Stat Cat Scan 08/27/24 12:[address] angio head Stat Cat Scan 08/27/24 12:[address] angio neck Stat Cat Scan 08/27/24 12:[address] cervical spine wo con Stat Cat Scan 08/27/24 12:[address] head/brain wo con Stat Cat Scan 08/27/24 12:35 Completed POCUS Point of Care (ER Only) Stat Exams 08/27/24 14:39 Ordered XR chest portable Stat Exams 08/27/24 12:33 Completed Acetaminophen Stat Lab 08/27/24 12:15 Completed Activated Partial Thrombo Time Stat Lab 08/27/24 12:15 Completed Complete Blood Count Auto Diff Stat Lab 08/27/24 12:15 Completed Comprehensive Metabolic Panel Stat Lab 08/27/24 12:15 Completed Creatine Kinase Stat Lab 08/27/24 12:15 Completed Drug Screen,Urine Stat Lab 08/27/24 14:40 Completed Ethyl Alcohol Stat Lab 08/27/24 12:15 Completed Free T4 (Free Thyroxine) Stat Lab 08/27/24 12:15 Completed Lipase Stat Lab 08/27/24 12:15 Completed Magnesium Stat Lab 08/27/24 12:15 Completed Prothrombin Time INR Stat Lab 08/27/24 12:15 Completed Salicylate Stat Lab 08/27/24 12:15 Completed Thyroid Stimulating Hormone Stat Lab 08/27/24 12:15 Completed Troponin I Q3H Lab 08/27/24 15:45 Ordered Troponin I Q3H Lab 08/27/24 18:45 Ordered Troponin I Stat Lab 08/27/24 12:15 Completed UA [Urinalysis and Microscopic] Stat Lab 08/27/24 14:40 Completed Blood Culture Stat Micro 08/27/24 13:04 Received Urine Culture Stat Micro 08/27/24 14:40 Received Venous Blood Gas Stat RT 08/27/24 12:33 Completed ECG Request Stat Y 08/27/24 12:33 Ordered Medical Decision Narrative: 79-year-old female history of hypertension, hyperlipidemia, CAD status post stenting, carotid endarterectomy, left hip fracture in January 2024 now currently on gabapentin and oxycodone presenting with fall. Patient's family providing some of the history because patient does not remember fall, but she is alert and oriented now. Patient family states that they talked her yesterday, 08/26 around 9 PM. After that, did not check on patient till today. Unable to get a hold of her this morning, so family stop by, patient was found on the ground laying flat. Alert, oriented, was not confused, just does not remember the fall and felt too weak to get up. States that she has no head or neck pain, back pain, chest pain, extremity pain. States that she last had a bowel movement today and has urinated as well. Abdomen is distended, diffusely tender, been getting worse over the last couple of days. Moderate to severe in intensity especially when applying pressure. History was obtained via conversation with patient and family, EMS. On arrival, patient hemodynamically stable, alert, oriented x4, appropriate, GCS 15, moving all extremities spontaneously, pupils equal and reactive to light. Full physical exam performed and significant for patient who is laying flat in bed, c-collar on. She does have superficial bruising to the right side of face. No evidence of dental trauma. Chest, back, extremities nontender, other than where she does have superficial skin tear on right elbow. Range of motion of extremities are intact. Abdomen is soft, distended, significantly tender and appears to be peritonitic with guarding. Differential includes intracranial bleed, critical cervical spine injury, intracranial bleed, critical cervical spine injury, dissection, PE, cholecystitis, pancreatitis, mesenteric ischemia, among others. Patient placed on continuous cardiac monitoring and continuous pulse ox with initial blood pressure 163/99, heart rate 81, saturation 98% on 1 L nasal cannula. Independent interpretation of EKG shows sinus rhythm with left axis deviation [address] or T wave changes concerning for acute ischemia. Right bundle branch block morphology. Patient was given levofloxacin IV with positive UA for symptomatic management and correction of underlying abnormalities. Workup independently interpreted and significant for nonactionable CBC. Coags normal. Lactate 2.5. Chemistry normal kidney function. Troponin negative, CK elevated to 70, given fluids for this thyroid studies normal. UA with concern for UTI. On independent interpretation of imaging, no acute intracranial hemorrhage or cervical spine injury. C-collar was removed. Patient has no acute intrathoracic injury, but she does have subacute right clavicle and right sided rib fractures. States that these happened a few falls ago, she is competent on that. Patient does not have any tenderness over these areas. CT angiogram of the abdomen with dilated gallbladder. See radiology read for full review of final results. Bedside [id number] ultrasound was performed and gallbladder/ducts are all upper limits of normal, no acute findings. Patient will need to be admitted to clear urine cultures, received antibiotics, trend kidney function to make sure it does not worsen in the setting of elevated CK. Because patient high risk for clinical decompensation, deemed appropriate for inpatient admission. Results were relayed to patient who voiced understanding and patient was agreeable to inpatient admission and management. Patient was admitted to the hospital for further definitive management. 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 Electronic engineer chief of the spoken language may permit errors. Although I have reviewed the note, some errors may still exist. Critical Care Critical Care Time Critical Care Time: No
[2024-08-27] MEDS: 0.9 % SODIUM CHLORIDE 50 ML VIAL IV ×2 (13:35→13:36)
[2024-08-27] MEDS: SODIUM CHLORIDE 0.9% 10ML SYR (RAD ONLY) 10 ML IV (13:35)
[2024-08-27] MEDS: IOPAMIDOL-370 (76%);100ML BOTTLE 160 ML IV (13:36)
[2024-08-27 13:49] LABS: Free T4 (Free Thyroxine) 0.62 ng/dl (0.78-2.19)
[2024-08-27 14:45] LABS: Microscopic, Urine URINE MICROSCOPIC (MICROSCOPIC)
[2024-08-27 14:47] LABS: Appearance,Urine CLOUDY (Clear); Bilirubin,Urine Negative (Negative); Blood, Urine 1+ (Negative); Color,Urine YELLOW (Yellow); Glucose,Urine (UA) Negative (Negative); Ketones,Urine Negative (Negative); Leukocyte Esterase,Urine 1+ (Negative); Nitrate,Urine POSITIVE (Negative); Protein,Urine TRACE (Negative); Urobilinogen,Urine 0.2 EU/dl (0.2)
[2024-08-27 15:06] LABS: Amphetamine/Metha Screen,Urine Negative ng/ml (<1000); Barbiturates Screen,Urine Negative ng/ml (<200); Benzodiazepines Screen,Urine Negative ng/ml (<200); Cannabinoid Screen,Urine Negative ng/ml (<50); Cocaine Screen,Urine Negative ng/ml (<300); Methadone Screen,Urine Negative ng/ml (<300); Opiate Screen,Urine Negative ng/ml (<300); Phencyclidine Screen,Urine Negative ng/ml (<25)
--- NOTE | 2024-08-27 15:08 | PC.NURSE ---
DR UHTCHINSON'S OFFICE CALLED. MESSAGE LEFT WITH CHRISTOPHER FOR RETURN CALL. DR HUTCHINSON DENTISTRY PROFESSOR FOR DR EASTMAN
[2024-08-27 15:09] LABS: Bacteria,Urine 1+ /lpf
[2024-08-27] MEDS: LEVOFLOXACIN/D5W 750 MG/150 ML 750 MG/150 ML PIGGYBACK 100 MG IV (15:17)
[2024-08-27 16:45] LABS: Reflex Lactic Add Lactic Reflex
--- NOTE | 2024-08-27 17:31 | PC.NURSE ---
SPANISHER NOTIFIED OF ADMISSION
[2024-08-27 17:42] LABS: Lactic Acid Follow Up (RFLX 1) 2.4 mmol/L (0.7-2.1)
--- NOTE | 2024-08-27 17:53 | PC.NURSE ---
REPORT CALLED TO CAROLINE MALHOTRA
--- NOTE | 2024-08-27 18:00 | PC.NURSE ---
PT AND FAMILY UPDATED
--- NOTE | 2024-08-27 18:28 | PC.NURSE ---
arrived by stretcher from ED
--- NOTE | 2024-08-27 18:41 | PC.NURSE ---
Pt aox2 to the floor with daughter, turn every two hours, bruising and abrasion noted to right side of face and both arms, purewick in place, 02-2.5 L NC PRN at home, bed alarm active, 20g L AC SL, R elbow with a skin tear.
[2024-08-27 19:01] LABS: Reflex Lactic (2 hrs) Add Lactic Reflex
[2024-08-27 19:20] LABS: Lactic Acid Follow up (RFLX 2) 2.5 mmol/L (0.7-2.1)
[2024-08-27 19:32] LABS: Troponin I 0.09 ng/ml (0.00-0.034)
[2024-08-27] MEDS: ACETAMINOPHEN 325MG TAB 650 MG PO (19:45)
--- NOTE | 2024-08-27 20:25 | EXP.HP ---
History of Present Illness *Admission Date: 08/27/24 *Reason for visit:: falling, weak *History of present illness: Ms. Verde is an 79-year-old female with multiple comorbidities including COPD on chronic oxygen of 2 and half to 3 L, heart failure preserved ejection fraction, history of CT, progressive debility, hypertension anemia polymyalgia rheumatica. She presented to the ER after falling at home. Family concerned about finding her lying in the kitchen this morning. Patient does not recall falling, states she has been falling intermittently, mostly in the mornings. Denies worsening shortness of breath. Does complain of some burning and discomfort when she urinates. Has some mild chest discomfort on palpation. Workup in the ER concerning for UTI with grossly abnormal urine, detectable troponin, fractures located on chest imaging and mild elevation in CK. Given debility and findings on workup, medicine consulted for admission and therapy evaluation. Family expressed they have strong concern about patient's progressive decline. Interested in considering placement however patient is hesitant at this time. After arriving to the floor, patient appears at baseline mentation. She is alert and oriented x 4. Stable on 3 L oxygen. Complains of chest pain on my exam when I palpate right and left chest. Denies chest pain at rest however. States she has been falling in the morning. Does not remember falling this morning. Family brought her in because of being found down. States she wants to continue to be at home if at all possible. Denies any cough or shortness of breath. No nausea or vomiting. Reports she has seen cardiology in the past, thinks it was a year ago. Per chart review however was 3 years ago. [facility] Disclaimer: The information contained in this section may have been updated after the patient was seen, as this information can be updated by other users. Medical History UTI (urinary tract infection) E coli infection Chronic thoracic back pain Displacement of internal left hip prosthesis Blepharitis URI, acute Abnormal thyroid function test History of ASCVD (atherosclerotic cardiovascular disease) Dyspnea Chest pain Surgical History Status post left hip replacement History of total left hip replacement Social History Smoking Status: Never smoker alcohol intake: never substance use type: denies use current occupational status: retired Travel in the last 8 weeks: Inside the [place] household members: none housing: house current occupational exposures/hazards: No caffeine: No Other Medical History Have you received the Flu Vaccine for this season: Yes Have you received the Pneumonia Vaccine: Yes Review of Systems Review of Systems Review of systems (narrative): 14 point review of systems performed, pertinent positives and negatives as per [facility] Meds Home Medications and Allergies Home Medications ?Medication ?Instructions ?Recorded ?Confirmed ?Type melatonin 10 mg tablet 10 mg PO HS PRN Sleep 05/20/21 08/27/24 History ascorbic acid (vitamin C) 1,000 mg 1 g PO DAILY 12/16/21 08/27/24 History tablet biotin 5 mg capsule 5 mg PO DAILY 12/16/21 08/27/24 History cholecalciferol (vitamin D3) 125 125 mcg PO DAILY 12/16/21 08/27/24 History mcg (5,000 unit) capsule coenzyme Q10 10 mg capsule 10 mg PO DAILY 12/16/21 08/27/24 History cyanocobalamin (vitamin B-12) 250 250 mcg PO DAILY 12/16/21 08/27/24 History mcg tablet aspirin 81 mg capsule 81 mg PO DAILY 07/22/22 08/27/24 History rosuvastatin 10 mg tablet 10 mg PO DAILY #90 tabs 06/25/24 08/27/24 Rx oxycodone 5 mg tablet 5 mg PO TID PRN back pain #90 tabs 08/13/24 08/27/24 Rx prednisone 5 mg tablet 5 mg PO DAILY #42 tabs 08/20/24 08/27/24 Rx pregabalin 75 mg capsule 75 mg PO BID pain #60 caps 08/20/24 08/27/24 Rx acetaminophen 500 mg capsule 1,000 mg PO TID 08/27/24 08/27/24 History albuterol sulfate 90 mcg/actuation 1 puff inhalation QID 08/27/24 08/27/24 History aerosol inhaler ferrous sulfate 325 mg (65 mg 325 mg PO DAILY 08/27/24 08/27/24 History iron) tablet (FeroSul) losartan 100 1 tab PO DAILY 08/27/24 08/27/24 History mg-hydrochlorothiazide 12.5 mg tablet metoprolol succinate 25 mg 12.5 mg PO DAILY 08/27/24 08/27/24 History tablet,extended release 24 hr metoprolol succinate 25 mg 25 mg PO HS 08/27/24 08/27/24 History tablet,extended release 24 hr omeprazole 40 mg capsule,delayed 40 mg PO DAILY 08/27/24 08/27/24 History release sertraline 100 mg tablet 100 mg PO HS 08/27/24 08/27/24 History tiotropium 2.5 mcg-olodaterol 2.5 2 puff inhalation DAILY 08/27/24 08/27/24 History mcg/actuation mist for inhalation (Stiolto Respimat) trazodone 50 mg tablet 100 mg PO HS 08/27/24 08/27/24 History New Prescriptions to Start Prescriptions: Allergies Allergy/AdvReac Type Severity Reaction Status Date / Time cephalexin [CEPHALEXIN] Allergy Unknown hives Verified 08/20/24 11:59 ibuprofen [From Motrin] Allergy hives Verified 08/20/24 11:59 Exam Data for Last 24 hours Vital signs and Labs for Last 24 Hours: Temp Pulse Resp BP Pulse Ox O2 Del Method O2 Flow Rate 98.0 F 78 18 130/83 98 Nasal Cannula 2.5 08/27/24 17:54 08/27/24 17:54 08/27/24 17:54 08/27/24 18:01 08/27/24 17:00 08/27/24 18:36 08/27/24 18:36 Laboratory Results - last 24 hr 08/27/24 12:15: WBC 12.2 H, RBC 3.93 L, Hgb 12.1 L, Hct 35.2 L, MCV 89.7, MCH 31.0, MCHC 34.5, RDW 14.3, Plt Count 158, MPV 7.8, Neut % (Auto) 84.7 H, Lymph % (Auto) 10.0, [place] % (Auto) 4.3, Eos % (Auto) 0.6, Baso % (Auto) 0.6, Neut # (Auto) 10.3 H, Lymph # (Auto) 1.2, [place] # (Auto) 0.5, Eos # (Auto) 0.1, Baso # (Auto) 0.1, PT 10.9, INR 0.97, APTT 27.3, Sodium 140, Potassium 4.0, Chloride 106, Carbon Dioxide 26, Anion Gap 12.0, BUN 25 H, Creatinine 0.70, Estimated Creat Clear 51, Estimated GFR 80, Est GFR ( Amer) 97, Glucose 139 H, Calcium 9.2, Magnesium 1.6, Total Bilirubin 0.9, AST 36, ALT 20, Alkaline Phosphatase 79, Total Creatine Kinase 268 H, Troponin I 0.03, Total Protein 6.5, Albumin 4.0, Globulin 2.5, Albumin/Globulin Ratio 1.6, Lipase 42, TSH 1.19, Free T4 0.62 L, Salicylates < 1.0 L, Acetaminophen < 10 L, Plasma/Serum Alcohol < 10 08/27/24 12:33: VBG pH 7.31, VBG pCO2 52.0 H, VBG pO2 25.0 L, VBG HCO3 25.3, VBG Total CO2 26.9, VBG O2 Saturation 45.4 L, VBG Base Excess -1.0, VBG Lactic Acid 2.5 H 08/27/24 14:40: Urine Color Yellow, Urine Appearance Cloudy, Urine pH 6.0, Ur Specific [place] 1.010, Urine Protein Trace, Urine Glucose (UA) Negative, Urine Ketones Negative, Urine Blood 1+ A, Urine Nitrate Positive, Urine Bilirubin Negative, Urine Urobilinogen 0.2, Ur Leukocyte Esterase 1+ A, Urine RBC 3-5, Urine WBC 3-5, Ur Squamous Epith Cells 3-5, Urine Bacteria 1+, Urine Opiates Screen Negative, Urine Methadone Screen Negative, Ur Barbituates Screen Negative, Ur Phencyclidine Scrn Negative, Ur Amphetamines Screen Negative, U Benzodiazepines Scrn Negative, Urine Cocaine Screen Negative, U Marijuana (THC) Screen Negative 08/27/24 16:07: Lactate 2.4 H 08/27/24 18:56: Lactate 2.5 H, Troponin I 0.09 H I & O for Last 24 hours: Intake & Output 08/24/24 08/25/24 08/26/24 08/27/24 23:59 23:59 23:59 23:59 Weight 76.685 kg Constitutional Constitutional: no acute distress, obese, chronically ill appearing and cooperative *Routine HEENT Exam Head: Present normocephalic Eye: Present EOMI and PERRL ENT: Present mucous membranes moist *Routine Neck Exam Neck: Present supple; Absent lymphadenopathy Routine Chest/Breast/Axilla Exam Chest wall: Present tenderness (Bilaterally to palpation) *Routine Respiratory Exam Respiratory: Present prolonged expiratory phase and distant breath sounds; Absent rhonchi or wheezes *Routine Cardiovascular Exam Cardiovascular: Present RRR *Routine Abdominal Exam Abdominal: Present soft, normoactive bowel sounds and distended; Absent tenderness *Routine Rectal Exam Rectal:: deferred *Routine Genitalia Exam Genitalia:: deferred *Routine Extremities Exam Extremities: Present edema (Trace bilateral lower extremity); Absent cyanosis or clubbing *Routine Skin Exam Skin: Present intact and warm; Absent rash *Routine Neurological Exam Neurological: Present alert, oriented X3 and moving all extremities; Absent altered mental status Assessment and Plan *Assessment and plan (1) Heart failure with preserved ejection fraction: Status: Acute Qualifiers: Heart failure chronicity: acute on chronic Qualified Code(s): I50.33 - Acute on chronic diastolic (congestive) heart failure Category: Medical Code(s): I50.30 - Unspecified diastolic (congestive) heart failure (2) Acute UTI: Status: Acute Category: Medical Code(s): N39.0 - Urinary tract infection, site not specified (3) Elevated CK: Status: Acute Category: Medical Code(s): R74.8 - Abnormal levels of other serum enzymes (4) Fall: Status: Acute Category: Medical Code(s): W19.XXXA - Unspecified fall, initial encounter (5) Rib fractures: Status: Acute Qualifiers: Encounter type: initial encounter Fracture type: closed Category: Medical Code(s): S22.49XA - Multiple fractures of ribs, unspecified side, initial encounter for closed fracture (6) Weakness: Status: Acute Category: Medical Code(s): R53.1 - Weakness (7) Tobacco dependence syndrome: Status: Chronic Category: Medical Code(s): F17.200 - Nicotine dependence, unspecified, uncomplicated (8) HLD (hyperlipidemia): Status: Acute Qualifiers: Hyperlipidemia type: mixed hyperlipidemia Qualified Code(s): E78.2 - Mixed hyperlipidemia Category: Medical Code(s): E78.5 - Hyperlipidemia, unspecified (9) HTN (hypertension): Status: Acute Qualifiers: Hypertension type: primary hypertension Qualified Code(s): I10 - Essential (primary) hypertension Category: Medical Code(s): I10 - Essential (primary) hypertension (10) GERD (gastroesophageal reflux disease): Status: Acute Category: Medical Code(s): K21.9 - Gastro-esophageal reflux disease without esophagitis (11) Polymyalgia rheumatica: Status: Acute Category: Medical Code(s): M35.3 - Polymyalgia rheumatica (12) Coronary artery disease: Problem Comment: MAY 2021-Successful stenting of proximal dominant right coronary severe disease reduced to 0% with 1 drug-eluting stent Status: Chronic Qualifiers: Associated angina: without angina Coronary Disease-Associated Artery/Lesion type: [place] artery [place] vs. transplanted heart: [place] heart Qualified Code(s): I25.10 - Atherosclerotic heart disease of [place] coronary artery without angina pectoris Category: Medical Code(s): I25.10 - Atherosclerotic heart disease of [place] coronary artery without angina pectoris (13) Chronic hypoxemic respiratory failure: Status: Acute Category: Medical Code(s): J96.11 - Chronic respiratory failure with hypoxia (14) COPD (chronic obstructive pulmonary disease): Status: Acute Category: Medical Code(s): J44.9 - Chronic obstructive pulmonary disease, unspecified Plan 79-year-old female found down at home by family. Presented to the ER for evaluation. Workup in the ER concerning for rib fractures, debility, CHF exacerbation and UTI. Discussed case with ER physician, request admission for further treatment and therapy evaluation, along with placement consideration. I agreed to admit for further care and workup. Patient on baseline oxygen, admits she has been falling frequently. Problems addressed as follows: Acute on chronic heart failure preserved ejection fraction CAD Hypertension - Patient presented with falls. Found to have mildly elevated troponin, initial 0.03, repeat 0.09. BNP obtained, 4200. Patient reports shortness of breath with exertion. -Will initiate Lasix 40 mg IV once tonight, initiate 40 mg IV daily. Monitor for negative fluid status -Review of echo obtained 05/2021 with preserved EF but has diastolic dysfunction. Repeat echo ordered for the morning to evaluate worsening of diastolic dysfunction -Cardiology consulted to assist with management. Has not seen cardiology in 2 years, would benefit from optimization of medical management of her heart failure -Kidney function normal with BUN 25, creatinine 0.7. Electrolytes normal potassium 4, magnesium 1.6. Will replace IV 2 g once, initiate PO mag daily. -Repeat CBC, CMP, magnesium ordered for the morning -CT of chest was obtained, per my review showed no PEs. Does not appear to have pneumonia or significant effusions. -Continue Crestor 10 mg nightly -Continue metoprolol succinate 12.5 mg twice daily. - Hold HCTZ, resume ARB with irbesartan 150 mg as formulary conversion Depression: Continue Zoloft 100 mg nightly Sleep disorder: Takes trazodone nightly. Will decrease to 50 mg given patient's falls; continue melatonin 10mg nightly Continue Lyrica 75 mg twice daily for neuropathy Continue oxycodone 5 mg as needed for severe pain, monitor for toxicity Right anterior rib fractures noted on CT. Conservative management. Nondisplaced. Subacute. Showing signs of healing. Polymyalgia rheumatica: Continue prednisone milligram daily Emphysema: On baseline oxygen of 3 L. Continue albuterol therapy and LABA/LAMA combo with Stiolto 2 puffs daily. Supplemental oxygen as needed for goal sats greater 90% Frequent falls, progressive debility: PT and OT consulted to evaluate for placement versus home health. Patient with mixed feelings on placement at this time. Wants to be independent and at home. Understands for frequent falls are of concern to family however. Not want to live with her daughter as they are also grandchildren in the house that present overwhelming environment for her. Further management and discussion with case management after PT eval. DNR Cardiac diet, n.p.o. after midnight Lovenox 40 mg subcu daily
[2024-08-27 21:05] LABS: NT Pro Brain Natriuretic Pep. 4210 pg/mL (0-450)
[2024-08-27] MEDS: PANTOPRAZOLE 40MG TABLET 40 MG PO (21:47)
[2024-08-27] MEDS: METOPROLOL SUCCINATE XL 25MG TABLET 12.5 MG PO (21:47)
[2024-08-27] MEDS: PATIENT'S OWN HOME MEDICATION (Pregabalin 75 mg capsule) 75 EACH PO (21:48)
[2024-08-27] MEDS: TRAZODONE 50MG TABLET 50 MG PO (21:48)
[2024-08-27] MEDS: SERTRALINE 100MG TABLET 100 MG PO (21:48)
[2024-08-27] MEDS: ATORVASTATIN 20MG TABLET 20 MG PO (21:48)
[2024-08-27] MEDS: FUROSEMIDE 40MG/4ML VIAL 40 MG IV (22:06)
[2024-08-27 22:37] LABS: HIV (1&2) Antibody Rapid NONREACTIVE (NONREACTIVE)
--- NOTE | 2024-08-27 22:47 | PC.NURSE ---
daughter brought in 2 inhalers from home, will send to pharmacy in the AM. patient alert to name and place, but pleasantly confused at times.
[2024-08-28] VITALS (8 sets, daily range): BP systolic 129–149; BP diastolic 56–75; PULSE 78–93; RESP 16–19; TEMP 36.6–37.8; O2SAT 96–100; BMI 28.1
[2024-08-28] MEDS: MAGNESIUM SULFATE IN WATER 2 GM/50 ML PIGGYBACK IV (00:19)
[2024-08-28 07:12] LABS: Basophils % 0.4 % (0.1-2.0); Eosinophils # 0.1 K/mm3 (0.0-0.4); Eosinophils % 0.7 % (0.1-12.0); Hematocrit 31.5 % (37.0-47.0); Lymphocytes # 1.7 K/mm3 (0.7-4.5); Lymphocytes % 18.9 % (10-50); Mean Corpuscular Hemoglobin 31.2 pg (27.0-31.2); Mean Corpuscular Volume 91.7 fl (81-99); Mean Platelet Volume 8.7 fl (7.4-10.4); Monocytes # 0.4 K/mm3 (0.1-1.0); Monocytes % 4.8 % (1.7-9.3); Neutrophils # 6.8 K/mm3 (1.8-7.8); Neutrophils % 75.2 % (37.0-80.0); Platelet Count 129 K/mm3 (142-424); Red Blood Count 3.43 M/mm3 (4.20-5.40); Red Cell Distribution Width 14.4 % (11.5-17.5); White Blood Count 9.1 K/mm3 (4.8-10.8)
--- NOTE | 2024-08-28 07:15 | PC.NURSE ---
Spoke to Pt's family member at bedside. States Pt has been very confused since yesterday morning and is unable to comprehend timing of breathing with the inhaler.
[2024-08-28 07:21] LABS: Hemoglobin 10.7 g/dL (12.2-16.2)
[2024-08-28 07:37] LABS: Alanine Aminotransferase 16 U/L (12-78); Albumin Level 3.4 g/dl (3.5-5.0); Albumin/Globulin Ratio 1.4 (1.1-1.8); Alkaline Phosphatase 67 U/L (38-126); Anion Gap 11.8 mEq/L (5-15); Aspartate Amino Transferase 35 U/L (14-36); Bilirubin,Total 0.9 mg/dl (0.2-1.3); Blood Urea Nitrogen 20 mg/dl (7-17); Calcium 8.7 mg/dl (8.4-10.2); Carbon Dioxide 25 mmol/L (22.0-30.0); Chloride 104 mmol/L (98-107); Creatinine Clearance Estimated 53 mL/min (50-200); Estimated Glomerular Filt Rate 69 ml/min (>60); GFR (African American) 83 ML/MIN (>60); Globulin 2.4 g/dL (1.3-3.2); Glucose 107 mg/dl (74-100); Potassium 3.8 mmoL/L (3.5-5.1); Sodium 137 mmol/L (136-145); Total Protein,Serum 5.8 g/dl (6.3-8.2)
--- NOTE | 2024-08-28 08:23 | EXP.ACUTE.PN ---
Subjective *Date: 08/28/24 *Time: 08:23 Interval history: Patient is feeling a little better today. She is complaining of left arm pain and weakness. She is unsure what she hit when she fell or how long she laid on the floor. Medical Exam Vital signs and Labs for Last 24 Hours: Vital Signs Temp Pulse Pulse Resp BP BP Pulse Ox 08/28/24 08:00 99.1 F 89 19 149/66 H 98 08/28/24 07:00 08/28/24 05:00 08/28/24 04:00 98.2 F 84 18 144/62 H 08/28/24 04:00 90 08/28/24 02:50 08/28/24 01:00 08/28/24 00:00 80 08/28/24 00:00 98.1 F 93 H 16 136/69 96 08/27/24 22:42 08/27/24 21:00 08/27/24 20:00 08/27/24 20:00 97.8 F 84 18 133/80 96 08/27/24 20:00 100 H 08/27/24 18:36 08/27/24 18:01 130/83 08/27/24 17:54 98.0 F 78 18 153/86 H 08/27/24 17:31 153/86 H 08/27/24 17:00 78 150/78 H 98 08/27/24 16:44 79 128/85 98 08/27/24 15:31 78 142/80 H 95 08/27/24 15:00 75 151/88 H 96 08/27/24 13:00 71 159/79 H 98 08/27/24 12:30 75 159/79 H 96 08/27/24 12:02 98.4 F 81 18 163/99 H 98 O2 Del Method O2 Flow Rate 08/28/24 08:00 Nasal Cannula 2.5 08/28/24 07:00 Nasal Cannula 2.5 08/28/24 05:00 Nasal Cannula 2.5 08/28/24 04:00 08/28/24 04:00 08/28/24 02:50 Nasal Cannula 2.5 08/28/24 01:00 Nasal Cannula 2.5 08/28/24 00:00 08/28/24 00:00 Nasal Cannula 2.5 08/27/24 22:42 Nasal Cannula 2.5 08/27/24 21:00 Nasal Cannula 2.5 08/27/24 20:00 Nasal Cannula 2.5 08/27/24 20:00 Nasal Cannula 2.5 08/27/24 20:00 08/27/24 18:36 Nasal Cannula 2.5 08/27/24 18:01 08/27/24 17:54 Room Air 08/27/24 17:31 08/27/24 17:00 08/27/24 16:44 08/27/24 15:31 08/27/24 15:00 08/27/24 13:00 08/27/24 12:30 08/27/24 12:02 Nasal Cannula 1 Intake and Output 08/27/24 08/28/24 08/28/24 19:59 03:59 11:59 Intake Total 630 / 990 360 / 990 Output Total 700 / 1075 375 / 1075 Balance -70 / -85 -15 / -85 Intake: Intake, Oral Amount 540 / 900 360 / 900 Intake, Other Amount 40 / 40 Intake, Total IV Amount 50 / 50 Magnesium Sulfate in Water 2 gm 50 / 50 In 50 ml @ 50 mls/hr IV ONCE ONE Rx#:[id number] Output: Output, Urine Amount 700 / 1075 375 / 1075 Other: Intake, Other Source Saline Solution Number of Unmeasured Voids 1 0 Number of Bowel Movements 1 Weight 169 lb 1 oz 168 lb 13.985 oz Patient Weight 08/28/24 11:59 Weight 168 lb 13.985 oz Laboratory Results - last 24 hr 08/27/24 12:15: WBC 12.2 H, RBC 3.93 L, Hgb 12.1 L, Hct 35.2 L, MCV 89.7, MCH 31.0, MCHC 34.5, RDW 14.3, Plt Count 158, MPV 7.8, Neut % (Auto) 84.7 H, Lymph % (Auto) 10.0, [place] % (Auto) 4.3, Eos % (Auto) 0.6, Baso % (Auto) 0.6, Neut # (Auto) 10.3 H, Lymph # (Auto) 1.2, [place] # (Auto) 0.5, Eos # (Auto) 0.1, Baso # (Auto) 0.1, PT 10.9, INR 0.97, APTT 27.3, Sodium 140, Potassium 4.0, Chloride 106, Carbon Dioxide 26, Anion Gap 12.0, BUN 25 H, Creatinine 0.70, Estimated Creat Clear 51, Estimated GFR 80, Est GFR ( Amer) 97, Glucose 139 H, Calcium 9.2, Magnesium 1.6, Total Bilirubin 0.9, AST 36, ALT 20, Alkaline Phosphatase 79, Total Creatine Kinase 268 H, Troponin I 0.03, Total Protein 6.5, Albumin 4.0, Globulin 2.5, Albumin/Globulin Ratio 1.6, Lipase 42, TSH 1.19, Free T4 0.62 L, Salicylates < 1.0 L, Acetaminophen < 10 L, Plasma/Serum Alcohol < 10 08/27/24 12:33: VBG pH 7.31, VBG pCO2 52.0 H, VBG pO2 25.0 L, VBG HCO3 25.3, VBG Total CO2 26.9, VBG O2 Saturation 45.4 L, VBG Base Excess -1.0, VBG Lactic Acid 2.5 H 08/27/24 14:40: Urine Color Yellow, Urine Appearance Cloudy, Urine pH 6.0, Ur Specific [place] 1.010, Urine Protein Trace, Urine Glucose (UA) Negative, Urine Ketones Negative, Urine Blood 1+ A, Urine Nitrate Positive, Urine Bilirubin Negative, Urine Urobilinogen 0.2, Ur Leukocyte Esterase 1+ A, Urine RBC 3-5, Urine WBC 3-5, Ur Squamous Epith Cells 3-5, Urine Bacteria 1+, Urine Opiates Screen Negative, Urine Methadone Screen Negative, Ur Barbituates Screen Negative, Ur Phencyclidine Scrn Negative, Ur Amphetamines Screen Negative, U Benzodiazepines Scrn Negative, Urine Cocaine Screen Negative, U Marijuana (THC) Screen Negative 08/27/24 16:07: Lactate 2.4 H 08/27/24 18:56: Lactate 2.5 H, Troponin I 0.09 H 08/27/24 20:38: NT-Pro-B Natriuret Pep 4210 H, HIV 1&2 Antibody Rapid Nonreactive 08/28/24 06:17: WBC 9.1 D, RBC 3.43 L, Hgb 10.7 L D, Hct 31.5 L, MCV 91.7, MCH 31.2, MCHC 34.0, RDW 14.4, Plt Count 129 L, MPV 8.7, Neut % (Auto) 75.2, Lymph % (Auto) 18.9, [place] % (Auto) 4.8, Eos % (Auto) 0.7, Baso % (Auto) 0.4, Neut # (Auto) 6.8, Lymph # (Auto) 1.7, [place] # (Auto) 0.4, Eos # (Auto) 0.1, Baso # (Auto) 0.0, Sodium 137, Potassium 3.8, Chloride 104, Carbon Dioxide 25, Anion Gap 11.8, BUN 20 H, Creatinine 0.80, Estimated Creat Clear 53, Estimated GFR 69, Est GFR ( Amer) 83, Glucose 107 H D, Calcium 8.7, Total Bilirubin 0.9, AST 35, ALT 16, Alkaline Phosphatase 67, Total Protein 5.8 L, Albumin 3.4 L D, Globulin 2.4, Albumin/Globulin Ratio 1.4 I & O for Labs for Last 24 Hours: Intake & Output 08/25/24 08/26/24 08/27/24 08/28/24 11:59 11:59 11:59 11:59 Intake Total 990 / 990 Output Total 1075 / 1075 Balance -85 / -85 Weight 168 lb 13.985 oz Constitutional: Present no acute distress Respiratory: Present CTA bilaterally Cardiac: Present Reg Rate and Rhythm GI: Present soft; Absent distention or tenderness Extremities: Present other (tender around left elbow and wrist with limited ROM); Absent edema Skin: Present ecchymosis (arms and legs) Neuro: Present alert, awake and oriented x 3 Assessment and Plan *Assessment and plan (1) Heart failure with preserved ejection fraction: Status: Acute Qualifiers: Heart failure chronicity: acute on chronic Qualified Code(s): I50.33 - Acute on chronic diastolic (congestive) heart failure Category: Medical Code(s): I50.30 - Unspecified diastolic (congestive) heart failure (2) Acute UTI: Status: Acute Category: Medical Code(s): N39.0 - Urinary tract infection, site not specified (3) Elevated CK: Status: Acute Category: Medical Code(s): R74.8 - Abnormal levels of other serum enzymes (4) Fall: Status: Acute Category: Medical Code(s): W19.XXXA - Unspecified fall, initial encounter (5) Rib fractures: Status: Acute Qualifiers: Encounter type: initial encounter Fracture type: closed Category: Medical Code(s): S22.49XA - Multiple fractures of ribs, unspecified side, initial encounter for closed fracture (6) Weakness: Status: Acute Category: Medical Code(s): R53.1 - Weakness (7) Tobacco dependence syndrome: Status: Chronic Category: Medical Code(s): F17.200 - Nicotine dependence, unspecified, uncomplicated (8) HLD (hyperlipidemia): Status: Acute Qualifiers: Hyperlipidemia type: mixed hyperlipidemia Qualified Code(s): E78.2 - Mixed hyperlipidemia Category: Medical Code(s): E78.5 - Hyperlipidemia, unspecified (9) HTN (hypertension): Status: Acute Qualifiers: Hypertension type: primary hypertension Qualified Code(s): I10 - Essential (primary) hypertension Category: Medical Code(s): I10 - Essential (primary) hypertension (10) GERD (gastroesophageal reflux disease): Status: Acute Category: Medical Code(s): K21.9 - Gastro-esophageal reflux disease without esophagitis (11) Polymyalgia rheumatica: Status: Acute Category: Medical Code(s): M35.3 - Polymyalgia rheumatica (12) Coronary artery disease: Problem Comment: MAY 2021-Successful stenting of proximal dominant right coronary severe disease reduced to 0% with 1 drug-eluting stent Status: Chronic Qualifiers: Coronary Disease-Associated Artery/Lesion type: [place] artery [place] vs. transplanted heart: [place] heart Associated angina: without angina Qualified Code(s): I25.10 - Atherosclerotic heart disease of [place] coronary artery without angina pectoris Category: Medical Code(s): I25.10 - Atherosclerotic heart disease of [place] coronary artery without angina pectoris (13) Chronic hypoxemic respiratory failure: Status: Acute Category: Medical Code(s): J96.11 - Chronic respiratory failure with hypoxia (14) COPD (chronic obstructive pulmonary disease): Status: Acute Category: Medical Code(s): J44.9 - Chronic obstructive pulmonary disease, unspecified Plan Will get x-rays of left arm. She is much better today. Will continue PT. She will likely need placement for rehab upon discharge. Cardiology has been consulted.
--- NOTE | 2024-08-28 08:33 | XR_ITS ---
FINAL REPORT CLINICAL HISTORY: FALL, LT WRIST PAIN FINDINGS: Left wrist Three views were obtained. There is no fracture or dislocation. There are severe degenerative changes of the first carpometacarpal joint. Moderate degenerative changes are seen elsewhere. There is a 9 mm loose body at the volar aspect of the wrist. There is a presumed loose body adjacent to the distal ulna. Soft tissue swelling is noted. IMPRESSION: Moderate and severe degenerative changes. Loose bodies as detailed above. Reviewed, Interpreted and Dictated by Nico Luis III, MD Transcribed by Stephania Mcbride Authenticated and [facility]
--- NOTE | 2024-08-28 08:33 | XR_ITS ---
FINAL REPORT CLINICAL HISTORY: FALL, LT ELBOW PAIN FINDINGS: Left elbow Three views were obtained. There is no fracture or dislocation. There are mild degenerative changes. No soft tissue abnormality is identified. IMPRESSION: No acute process. Reviewed, Interpreted and Dictated by Nico Luis III, MD Transcribed by Stephania Mcbride Authenticated and [facility]
[2024-08-28 09:02] LABS: Cholesterol 117 mg/dl (140-200); HDL Cholesterol 39 mg/dl (40-60); Triglycerides 253 mg/dl (30-150); VLDL Cholesterol 51 mg/dL (0-40)
[2024-08-28 09:13] LABS: Direct LDL Cholesterol 32.12 mg/dL (100-129)
--- NOTE | 2024-08-28 09:45 | HMH.PTEV ---
Physical Therapy Evaluation Rehab PT IP Evaluation Start: 08/27/24 16:18 Freq: ONCE Status: Active Protocol: Document 08/28/24 08:29 MANDEEP (Rec: 08/28/24 09:40 MANDEEP [id number]) Subjective/History History History Per H&P: Ms. Verde is an 79-year-old female with multiple comorbidities including COPD on chronic oxygen of 2 and half to 3 L, heart failure preserved ejection fraction, history of CT, progressive debility, hypertension anemia polymyalgia rheumatica. She presented to the ER after falling at home. Family concerned about finding her lying in the kitchen this morning. Patient does not recall falling, states she has been falling intermittently, mostly in the mornings. Denies worsening shortness of breath. Does complain of some burning and discomfort when she urinates. Has some mild chest discomfort on palpation. Workup in the ER concerning for UTI with grossly abnormal urine, detectable troponin, fractures located on chest imaging and mild elevation in CK. Given debility and findings on workup, medicine consulted for admission and therapy evaluation. Family expressed they have strong concern about patient's progressive decline. Interested in considering placement however patient is hesitant at this time. After arriving to the floor, patient appears at baseline mentation. She is alert and oriented x 4. Stable on 3 L oxygen. Complains of chest pain on my exam when I palpate right and left chest. Denies chest pain at rest however. States she has been falling in the morning. Does not remember falling this morning. Family brought her in because of being found down. States she wants to continue to be at home if at all possible. Denies any cough or shortness of breath. No nausea or vomiting. Reports she has seen cardiology in the past, thinks it was a year ago. Per chart review however was 3 years ago. Subjective Subjective Pt with complaints of LUE and wrist pain. Pt awaiting x-rays . Pt agreeable to PT evaluation. PLOF: IND with most functional mobility using a RW. Owns a lift chair and w/c. Reports multiple falls in the past 2 months. Daughter does all the driving. Pt not Driving. Home: Lives alone in a single- story home with no SHANIA. Available assistance: Has a daughter who can stay with her but is unable to provide 24/7 assistance. New diagnosis of cancer in past 12 No months? Rehab PT IP Eval Objective Appearance Patient Behavior Appropriate,Cooperative Patient Orientation Person Difficulty following instructions none Speech Pattern Clear Ambulation Patient Able to Ambulate Yes Ambulation Observation IP General Gait Pattern Observation Wide Based Gait Ambulation Distance (feet) 3 Ambulation Ability Minimal x 2 (25% assist) Balance Ability to Arise Able, uses arms to help Sitting Balance Steady, safe Standing Balance Unsteady Transfers Chair Transfer Ability Minimal x 1 (25% assist) Sit to Stand Chair Transfer Ability Moderate x 1 (50% assist) Rehab PT IP prob,goals,plan Problems Date of Evaluation: 08/28/24 PT IP Problems Bed Mobility,Transfers,Gait, Balance,Self care,Safety Rehab Potential Rehab Potential Good Plan PT Intervention Plan Bed Mobility,Transfers,Gait, Balance,Self care,Safety, Therapeutic Exercise Other Intervention Plan 1-2 times PT Plan Frequency Daily Duration LOS Discharge Goals Bed Transfer Ability Minimal x 1 (25% assist) Sit to Stand Chair Transfer Ability Minimal x 1 (25% assist) Ambulation Assistive Device Rolling Walker Ambulation Distance (feet) 10 Discharge Plan PT Discharge Plan Initial physical therapy evaluation performed. Patient presents below baseline at this time in functional mobility, transfers, gait, and strength. Pt not safe to return home at this time d/t current level of functional mobility and lack of 08/05 care . PT recommending short-term rehabilitation stay upon d/c from [facility]. Pt would benefit from skilled PT while at [facility] to prevent further functional decline and maximize safety with mobility. Eval Complexity Eval Charge Codes 82062 - Moderate Complexity PHYSICIAN CERTIFICATION: I certify the specified therapy services for [place] are required, authorized, and reviewed every 30 days.
--- NOTE | 2024-08-28 10:08 | HMH.OTEV ---
OT Inpatient Evaluation Rehab OT IP Evaluation Start: 08/27/24 16:18 Freq: ONCE Status: Active Protocol: Document 08/28/24 09:54 DELIADONALD (Rec: 08/28/24 10:08 ELIULINDA [id number]) Rehab OT IP Assessment Subjective History Ms. Verde is an 79-year- old female with multiple comorbidities including COPD on chronic oxygen of 2 and half to 3 L, heart failure preserved ejection fraction, history of CT, progressive debility, hypertension anemia polymyalgia rheumatica. She presented to the ER after falling at home. Family concerned about finding her lying in the kitchen this morning. Patient does not recall falling, states she has been falling intermittently, mostly in the mornings. Denies worsening shortness of breath. Does complain of some burning and discomfort when she urinates. Has some mild chest discomfort on palpation. Workup in the ER concerning for UTI with grossly abnormal urine, detectable troponin, fractures located on chest imaging and mild elevation in CK. Given debility and findings on workup, medicine consulted for admission and therapy evaluation. Family expressed they have strong concern about patient's progressive decline. Interested in considering placement however patient is hesitant at this time. After arriving to the floor, patient appears at baseline mentation. She is alert and oriented x 4. Stable on 3 L oxygen. Complains of chest pain on my exam when I palpate right and left chest. Denies chest pain at rest however. States she has been falling in the morning. Does not remember falling this morning. Family brought her in because of being found down. States she wants to continue to be at home if at all possible. Denies any cough or shortness of breath. No nausea or vomiting. Reports she has seen cardiology in the past, thinks it was a year ago. Per chart review however was 3 years ago. Patient lives alone in 1 story home with no SHANIA. Family has been assisting patient with ADLs, meal preps and fx'l mobility. Uses RW to ambulate. Hx of falling. Family reported they are unable to continue to care for patient at this time. Subjective My L UE arm hurts. Instructed Patient on proper hand and foot placement to complete sit->stand transfers with usage of RW requiring Mod A X2. Patient maneuver throughout room ~20ft with Min A x2. Unsteadiness on feet several times throughout session. High fall risk. Left Patient sitting upright in chair wtih needs met at end of session. Objective Patient Orientation Person,Name,Age,Birthday,Year Right Upper Extremity Gross ROM WFL Left Upper Extremity Gross ROM WFL Transfer Training Sit/Stand Transfer Assist Level Moderate x 2 (50% assist) Chair Transfer Ability Moderate x 2 (50% assist) Chair Transfer Technique Sit to/from Ambulatory Rehab OT IP prob,goals,plan Problems Date of Evaluation: 08/28/24 OT IP Problems Bed Mobility,Transfers,Balance ,Self care,Safety Rehab Potential Rehab Potential Good Equipment Needs Assistive Devices None / NA Plan OT intervention Plan Bed Mobility,Transfers,Balance ,Self care,Safety,Therapeutic Exercise OT Plan Frequency Daily Duration LOS Discharge Goals Sit to Stand Chair Transfer Ability Moderate x 1 (50% assist) Chair Transfer Ability Moderate x 1 (50% assist) Chair Transfer Technique Sit to/from Ambulatory Chair Transfer Assistive Devices Rolling Walker Discharge Plan OT Discharge Plan Recommend placement at this time. Patient will continue to need assistance for ADLs and fx'l mobility. Patient has a hx of falling at home resulting in multiple fx. REcommend 24/7 care. [facility]Am[facility] reported they are unable to continue to provide 24/7 care at this time. Eval Complexity Eval Charge Codes 27819 - Low Complexity PHYSICIAN CERTIFICATION: I certify the specified therapy services for [place] are required, authorized, and reviewed every 30 days.
[2024-08-28] MEDS: MAGNESIUM OXIDE 400MG TABLET 400 MG PO (10:16)
[2024-08-28] MEDS: IRBESARTAN 150MG TAB 150 MG PO (10:16)
[2024-08-28] MEDS: predniSONE 5MG TAB 5 MG PO (10:16)
[2024-08-28] MEDS: METOPROLOL SUCCINATE XL 25MG TABLET 12.5 MG PO ×2 (10:17→20:29)
[2024-08-28] MEDS: ENOXAPARIN 40MG/0.4ML SYRINGE 40 MG SUBCUT (10:17)
[2024-08-28] MEDS: ASPIRIN 81MG CHEWABLE TABLET 81 MG PO (10:17)
[2024-08-28] MEDS: FUROSEMIDE 40MG/4ML VIAL 40 MG IV (10:17)
[2024-08-28] MEDS: PREGABALIN 25MG CAPSULE 75 MG PO ×2 (10:20→20:28)
--- NOTE | 2024-08-28 10:24 | SW/DCPLANNER ---
Addendum entered by [facility] 09/02/24 09:33: Patient has been approved for SNF level of care at [facility] today. Per Rupal patient can admit to [facility] today. Addendum entered by [facility] 08/30/24 15:36: I have updated patient's daughter. Addendum entered by [facility] 08/30/24 15:32: Per Rupal w/ [facility] precert is still pending but they can accept if approved over the weekend. Addendum entered by [facility] 08/30/24 12:30: Per [facility] precert is still pending at this time. Addendum entered by [facility] 08/29/24 11:52: Per Nini precert was started this AM w/ expected discharge date of tomorrow 08/30. Addendum entered by [facility] 08/28/24 13:40: Per Nini w/ [facility] she can accept patient and precert will be started once discharge date is known. I will follow up w/ Nini in AM. Addendum entered by [facility] 08/28/24 13:20: Patient is now agreeable for information to be faxed to [facility]. I will fax patient information and continue to follow up w/ Nini at [facility]. Discharge date is unknown. Original Note: I spoke w/ patient regarding plans once medically stable for discharge. PT/OT evaluated patient and recommended SNF at time of discharge. Patient/family stated that patient was at [facility] the beginning of this year. Patient is refusing placement at this time. Patient's daughter requested to give her time to speak w/ patient regarding placement. I will follow up w/ family this afternoon regarding discharge plans. Per Cardiology they will perform hearth cath tomorrow. Discharge date is unknown at this time.
[2024-08-28] MEDS: ACETAMINOPHEN 325MG TAB 650 MG PO (11:13)
--- NOTE | 2024-08-28 11:30 | EXP.CARD.CON ---
History of Present Illness History of Present Illness Consult date: 08/28/24 Requesting physician: Nabil Shook Consult reason: shortness of breath Chief complaint: fall, SOB History of present illness: This is an 79-year-old white female who presented to the emergency department after a unwitnessed fall at home. The patient has a past medical history of coronary artery disease status post stenting, hypertension, hyperlipidemia, HFpEF, COPD and anemia. The patient was found at home lying on the floor in the kitchen with blood under her head. The patient does not recall falling and does not know how long she was down before her family found her. She denies any chest pain or pressure. She denies any shortness of breath or edema. However her daughter reports that she has been extremely short of breath over the last month and specifically within the last few days. She states that her mother sleeps pretty much all of the time and is so tired that she cannot do anything. She states that her shortness of breath is worse with exertion and does improve with rest. She states that she is noticeably short of breath when she is walking. She denies any fever, chills, nausea, vomiting, diarrhea, PND orthopnea. She did report some burning and discomfort when she urinates as well the patient was brought to the emergency department by her family after being found down at home. The patient had an elevated troponin as well as an elevated BNP so cardiology was consulted. The patient does report frequent falls at home. Today she reports left upper extremity pain from the fall. She states that her left arm feels extremely sore. [facility] Disclaimer: The information contained in this section may have been updated after the patient was seen, as this information can be updated by other users. Medical History (Updated 08/28/24 @ 11:44 by Lucy Lovett APRN) Stenosis of carotid artery Frequent falls SOB (shortness of breath) on exertion Pericardial effusion Elevated troponin UTI (urinary tract infection) E coli infection Chronic thoracic back pain Displacement of internal left hip prosthesis Blepharitis URI, acute Abnormal thyroid function test History of ASCVD (atherosclerotic cardiovascular disease) Dyspnea Chest pain Surgical History Status post left hip replacement History of total left hip replacement Social History Smoking Status: Never smoker alcohol intake: never substance use type: denies use current occupational status: retired Travel in the last 8 weeks: Inside the [place] household members: none housing: house current occupational exposures/hazards: No caffeine: No Review of Systems Review of Systems Review of systems:: pertinent systems reviewed and negative unless documented below Constitutional Constitutional: Reports system reviewed and no additional complaints, except as documented, Reports fatigue, Reports frequent falls, Reports lethargy and Reports weakness Eyes Eyes: Reports system reviewed and no additional complaints, except as documented ENT Ears, Nose, Mouth, and Throat: Reports system reviewed and no additional complaints, except as documented *Cardiovascular Cardiovascular: Reports system reviewed and no additional complaints, except as documented, Denies chest pain, Reports dyspnea and Reports dyspnea on exertion *Respiratory Respiratory: Reports system reviewed and no additional complaints, except as documented, Reports dyspnea and Reports dyspnea on exertion *Gastrointestinal Gastrointestinal: Reports system reviewed and no additional complaints, except as documented *Genitourinary Genitourinary: Reports system reviewed and no additional complaints, except as documented *Musculoskeletal Musculoskeletal: Reports system reviewed and no additional complaints, except as documented and Reports other (Left arm pain) Integumentary/Breasts Skin/Breast: Reports system reviewed and no additional complaints, except as documented *Neurologic Neurologic: Reports system reviewed and no additional complaints, except as documented, Reports frequent falls and Reports weakness Psychiatric Psychiatric: Reports system reviewed and no additional complaints, except as documented Endocrine Endocrine: Reports system reviewed and no additional complaints, except as documented and Reports fatigue Hematologic/Lymphatic Hematologic/Lymphatic: Reports system reviewed and no additional complaints, except as documented Allergic/Immunologic Allergic/Immunologic: Reports system reviewed and no additional complaints, except as documented Exam Data for Last 24 hours Vital signs and Labs for Last 24 Hours: Temp Pulse Resp BP Pulse Ox O2 Del Method O2 Flow Rate 99.1 F 89 19 149/66 H 98 Room Air 2.5 08/28/24 08:00 08/28/24 08:00 08/28/24 08:00 08/28/24 08:00 08/28/24 08:00 08/28/24 11:00 08/28/24 10:15 Laboratory Results - last 24 hr 08/27/24 12:15: WBC 12.2 H, RBC 3.93 L, Hgb 12.1 L, Hct 35.2 L, MCV 89.7, MCH 31.0, MCHC 34.5, RDW 14.3, Plt Count 158, MPV 7.8, Neut % (Auto) 84.7 H, Lymph % (Auto) 10.0, Citrus % (Auto) 4.3, Eos % (Auto) 0.6, Baso % (Auto) 0.6, Neut # (Auto) 10.3 H, Lymph # (Auto) 1.2, Citrus # (Auto) 0.5, Eos # (Auto) 0.1, Baso # (Auto) 0.1, PT 10.9, INR 0.97, APTT 27.3, Sodium 140, Potassium 4.0, Chloride 106, Carbon Dioxide 26, Anion Gap 12.0, BUN 25 H, Creatinine 0.70, Estimated Creat Clear 51, Estimated GFR 80, Est GFR ( Amer) 97, Glucose 139 H, Calcium 9.2, Magnesium 1.6, Total Bilirubin 0.9, AST 36, ALT 20, Alkaline Phosphatase 79, Total Creatine Kinase 268 H, Troponin I 0.03, Total Protein 6.5, Albumin 4.0, Globulin 2.5, Albumin/Globulin Ratio 1.6, Lipase 42, TSH 1.19, Free T4 0.62 L, Salicylates < 1.0 L, Acetaminophen < 10 L, Plasma/Serum Alcohol < 10 08/27/24 12:33: VBG pH 7.31, VBG pCO2 52.0 H, VBG pO2 25.0 L, VBG HCO3 25.3, VBG Total CO2 26.9, VBG O2 Saturation 45.4 L, VBG Base Excess -1.0, VBG Lactic Acid 2.5 H 08/27/24 14:40: Urine Color Yellow, Urine Appearance Cloudy, Urine pH 6.0, Ur Specific [place] 1.010, Urine Protein Trace, Urine Glucose (UA) Negative, Urine Ketones Negative, Urine Blood 1+ A, Urine Nitrate Positive, Urine Bilirubin Negative, Urine Urobilinogen 0.2, Ur Leukocyte Esterase 1+ A, Urine RBC 3-5, Urine WBC 3-5, Ur Squamous Epith Cells 3-5, Urine Bacteria 1+, Urine Opiates Screen Negative, Urine Methadone Screen Negative, Ur Barbituates Screen Negative, Ur Phencyclidine Scrn Negative, Ur Amphetamines Screen Negative, U Benzodiazepines Scrn Negative, Urine Cocaine Screen Negative, U Marijuana (THC) Screen Negative 08/27/24 16:07: Lactate 2.4 H 08/27/24 18:56: Lactate 2.5 H, Troponin I 0.09 H 08/27/24 20:38: NT-Pro-B Natriuret Pep 4210 H, HIV 1&2 Antibody Rapid Nonreactive 08/28/24 06:17: WBC 9.1 D, RBC 3.43 L, Hgb 10.7 L D, Hct 31.5 L, MCV 91.7, MCH 31.2, MCHC 34.0, RDW 14.4, Plt Count 129 L, MPV 8.7, Neut % (Auto) 75.2, Lymph % (Auto) 18.9, Citrus % (Auto) 4.8, Eos % (Auto) 0.7, Baso % (Auto) 0.4, Neut # (Auto) 6.8, Lymph # (Auto) 1.7, Citrus # (Auto) 0.4, Eos # (Auto) 0.1, Baso # (Auto) 0.0, Sodium 137, Potassium 3.8, Chloride 104, Carbon Dioxide 25, Anion Gap 11.8, BUN 20 H, Creatinine 0.80, Estimated Creat Clear 53, Estimated GFR 69, Est GFR ( Amer) 83, Glucose 107 H D, Calcium 8.7, Total Bilirubin 0.9, AST 35, ALT 16, Alkaline Phosphatase 67, Total Protein 5.8 L, Albumin 3.4 L D, Globulin 2.4, Albumin/Globulin Ratio 1.4, Triglycerides 253 H, Cholesterol 117 L, LDL Cholesterol Direct 32.12 L, VLDL Cholesterol 51 H, HDL Cholesterol 39 L, Cholesterol/HDL Ratio 3.0 I & O for Last 24 hours: Intake & Output 08/25/24 08/26/24 08/27/24 08/28/24 23:59 23:59 23:59 23:59 Intake Total 500 / 630 490 / 490 Output Total 0 / 400 1075 / 1075 Balance 500 / 230 -585 / -585 Weight 169 lb 1 oz 168 lb 13.985 oz Microbiology Reports for the Last 24 Hours: Microbiology 08/27/24 14:40 Urine,Catheterized Urine Culture - Preliminary Gram Negative Rods Constitutional Constitutional: no acute distress and average body habitus *Routine HEENT Exam Head: Present normocephalic and atraumatic ENT: Present mucous membranes moist *Routine Neck Exam Neck: Present supple, full ROM and normal carotid upstroke; Absent JVD, carotid bruit or lymphadenopathy *Routine Respiratory Exam Respiratory: Present CTA bilaterally, normal respiratory effort, able to speak in complete sentences and symmetric chest movement *Routine Cardiovascular Exam Cardiovascular: Present RRR, Normal S1 and Normal S2; Absent murmur or gallop *Routine Abdominal Exam Abdominal: Present soft and normoactive bowel sounds; Absent tenderness, distended or organomegaly *Routine Extremities Exam Extremities: Present full ROM, pulses intact and normal capillary refill; Absent cyanosis, clubbing or edema *Routine Skin Exam Skin: Present intact and warm; Absent erythema *Routine Neurological Exam Neurological: Present alert, oriented X3 and CN II-XII intact; Absent sensory deficit or motor deficit Routine Psychiatric Exam Psychiatric: Present normal affect Meds Home Medications and Allergies Home Medications ?Medication ?Instructions ?Recorded ?Confirmed ?Type melatonin 10 mg tablet 10 mg PO HS PRN Sleep 05/20/21 08/27/24 History ascorbic acid (vitamin C) 1,000 mg 1 g PO DAILY 12/16/21 08/27/24 History tablet biotin 5 mg capsule 5 mg PO DAILY 12/16/21 08/27/24 History cholecalciferol (vitamin D3) 125 125 mcg PO DAILY 12/16/21 08/27/24 History mcg (5,000 unit) capsule coenzyme Q10 10 mg capsule 10 mg PO DAILY 12/16/21 08/27/24 History cyanocobalamin (vitamin B-12) 250 250 mcg PO DAILY 12/16/21 08/27/24 History mcg tablet aspirin 81 mg capsule 81 mg PO DAILY 07/22/22 08/27/24 History rosuvastatin 10 mg tablet 10 mg PO DAILY #90 tabs 06/25/24 08/27/24 Rx oxycodone 5 mg tablet 5 mg PO TID PRN back pain #90 tabs 08/13/24 08/27/24 Rx prednisone 5 mg tablet 5 mg PO DAILY #42 tabs 08/20/24 08/27/24 Rx pregabalin 75 mg capsule 75 mg PO BID pain #60 caps 08/20/24 08/27/24 Rx acetaminophen 500 mg capsule 1,000 mg PO TID 08/27/24 08/27/24 History albuterol sulfate 90 mcg/actuation 1 puff inhalation QID 08/27/24 08/27/24 History aerosol inhaler ferrous sulfate 325 mg (65 mg 325 mg PO DAILY 08/27/24 08/27/24 History iron) tablet (FeroSul) losartan 100 1 tab PO DAILY 08/27/24 08/27/24 History mg-hydrochlorothiazide 12.5 mg tablet metoprolol succinate 25 mg 12.5 mg PO DAILY 08/27/24 08/27/24 History tablet,extended release 24 hr metoprolol succinate 25 mg 25 mg PO HS 08/27/24 08/27/24 History tablet,extended release 24 hr omeprazole 40 mg capsule,delayed 40 mg PO DAILY 08/27/24 08/27/24 History release sertraline 100 mg tablet 100 mg PO HS 08/27/24 08/27/24 History tiotropium 2.5 mcg-olodaterol 2.5 2 puff inhalation DAILY 08/27/24 08/27/24 History mcg/actuation mist for inhalation (Stiolto Respimat) trazodone 50 mg tablet 100 mg PO HS 08/27/24 08/27/24 History New Prescriptions to Start Prescriptions: Allergies Allergy/AdvReac Type Severity Reaction Status Date / Time cephalexin (CEPHALEXIN) Allergy Unknown hives Verified 08/20/24 11:59 ibuprofen (From Motrin) Allergy hives Verified 08/20/24 11:59 Assessment and Plan *Assessment and plan (1) Elevated troponin: Status: Acute Category: Medical Code(s): R79.89 - Other specified abnormal findings of blood chemistry (2) SOB (shortness of breath) on exertion: Status: Acute Category: Medical Code(s): R06.02 - Shortness of breath (3) Heart failure with preserved ejection fraction: Status: Acute Qualifiers: Heart failure chronicity: acute on chronic Qualified Code(s): I50.33 - Acute on chronic diastolic (congestive) heart failure Category: Medical Code(s): I50.30 - Unspecified diastolic (congestive) heart failure (4) Coronary artery disease: Problem Comment: MAY 2021-Successful stenting of proximal dominant right coronary severe disease reduced to 0% with 1 drug-eluting stent Status: Chronic Qualifiers: Associated angina: with other forms of angina Coronary Disease-Associated Artery/Lesion type: [place] artery [place] vs. transplanted heart: [place] heart Qualified Code(s): I25.118 - Atherosclerotic heart disease of [place] coronary artery with other forms of angina pectoris Category: Medical Code(s): I25.10 - Atherosclerotic heart disease of [place] coronary artery without angina pectoris (5) Elevated CK: Status: Acute Category: Medical Code(s): R74.8 - Abnormal levels of other serum enzymes (6) Pericardial effusion: Status: Acute Category: Medical Code(s): I31.39 - Other pericardial effusion (noninflammatory) (7) COPD (chronic obstructive pulmonary disease): Status: Acute Qualifiers: COPD type: unspecified COPD Qualified Code(s): J44.9 - Chronic obstructive pulmonary disease, unspecified Category: Medical Code(s): J44.9 - Chronic obstructive pulmonary disease, unspecified (8) HTN (hypertension): Status: Acute Qualifiers: Hypertension type: primary hypertension Qualified Code(s): I10 - Essential (primary) hypertension Category: Medical Code(s): I10 - Essential (primary) hypertension (9) HLD (hyperlipidemia): Status: Acute Qualifiers: Hyperlipidemia type: mixed hyperlipidemia Qualified Code(s): E78.2 - Mixed hyperlipidemia Category: Medical Code(s): E78.5 - Hyperlipidemia, unspecified (10) GERD (gastroesophageal reflux disease): Status: Acute Qualifiers: Esophagitis presence: esophagitis presence not specified Qualified Code(s): K21.9 - Gastro-esophageal reflux disease without esophagitis Category: Medical Code(s): K21.9 - Gastro-esophageal reflux disease without esophagitis (11) Tobacco dependence syndrome: Status: Chronic Category: Medical Code(s): F17.200 - Nicotine dependence, unspecified, uncomplicated (12) Frequent falls: Status: Acute Category: Medical Code(s): R29.6 - Repeated falls (13) Rib fractures: Status: Acute Qualifiers: Encounter type: initial encounter Fracture type: closed Laterality: unspecified laterality Qualified Code(s): S22.49XA - Multiple fractures of ribs, unspecified side, initial encounter for closed fracture Category: Medical Code(s): S22.49XA - Multiple fractures of ribs, unspecified side, initial encounter for closed fracture (14) Stenosis of carotid artery: Status: Acute Qualifiers: Laterality: bilateral Qualified Code(s): I65.23 - Occlusion and stenosis of bilateral carotid arteries Category: Medical Code(s): I65.29 - Occlusion and stenosis of unspecified carotid artery Plan Plan: 1. The patient was admitted to the hospital after falls at home. She does have multiple rib fractures and a fracture to the right clavicle. Will defer this to the hospitalist. 2. The patient does have an elevated troponin consistent with a non-STEMI. She does have a history of coronary artery disease with a drug-eluting stent placed in 2020. She has not seen cardiology since 2021. 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 Will plan to proceed with left cardiac catheterization tomorrow to evaluate her coronary artery disease in the setting of atypical angina, and elevated troponin consistent with non-STEMI and a history of coronary artery disease. 3. The patient will be n.p.o. after midnight. 4. Echocardiogram shows a normal ejection fraction with a small pericardial effusion. The patient also has an elevated BNP. She is having acute on chronic HFpEF. Will gently diurese her with IV Lasix today. Once she has been diuresed today then we will proceed with left cardiac catheterization tomorrow as mentioned above. 5. The patient's blood pressure is slightly elevated. CT of the abdomen does show moderate to severe left renal artery stenosis. At the time of left cardiac catheterization tomorrow we will also proceed with a renal angiogram to evaluate her renal artery stenosis. Continue losartan and metoprolol. 6. The patient has been educated the risk and benefits of proceeding with renal angiogram. The patient verbalized understanding and is agreeable in proceeding with the procedure. 7. Continue aspirin and Lipitor for her known coronary artery disease. 8. Her LDL goal is less than 55. Her LDL is 32. She is on a statin. 9. The patient does have a history of left carotid artery stenting. CTA of the neck and head showed no significant carotid artery stenosis at this time. 10. Further recommendations were made pending the patient's response to treatment.
--- NOTE | 2024-08-28 12:22 | HMH.PHAINT1 ---
Pharmacy Intervention Comments: HOME MEDICATIONS VERIFIED VIA OUTPATIENT PHARMACY AND INTERVIEW WITH PATIENT [facility]
--- OUTSIDE RECORDS SUMMARY | 2024-08-28 15:58 | XMS_ITS ---
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 Name Role Phone RAIZA SALAZAR, MUSTAPHA ROMO Unavailable [phone] Chase SALAZAR, Scott De La Cruz Unavailable [phone] Problems Includes: Active, inactive, and resolved Problems All Visits Onset Date Resolved Date Provider Condition S tatus Joint Pain in the Left Hip 02/08/2024 Scott Stone MD Active Last Documented On 4 11:15AM ; [facility], [facility] Plan of Treatment Findings Encounter Date Patient screened for future fall risk: documentation of any fall with injury in past year Follow Up with Scott Stone MD 05/02/2024 Last Documented On 4 11:13AM ; [facility], [facility] Patient screened for future fall risk: documentation of any fall with injury in past year Post Op with Scott Stone MD 03/07/2024 Last Documented On 4 4:23PM ; [facility] Patient screened for future fall risk: documentation of any fall with injury in past year New patient-Post op appointment with Scott Stone MD 02/08/2024 Last Documented On 4 2:00PM ; [facility], [facility] Instructions to patient Lose weight Last Documented On 4 10:16AM ; [facility], [facility] Lose weight Last Documented On 4 10:06AM ; [facility], [facility] Lose weight Last Documented On 4 11:27AM ; [facility], [facility] Assessments Includes: Assessments for all patient encounters Findings Encounter Date Overweight Follow Up with Scott Stone MD 05/02/2024 Last Documented On 4 11:13AM ; [facility], [facility] Overweight Post Op with Scott Stone MD Last Documented On 4 4:23PM ; [facility], [facility] Overweight New patient-Post op appointment with Scott Stone MD 02/08/2024 Last Documented On 4 2:00PM ; [facility], [facility] Instructions Includes: Instructions for all patient encounters Instructions to patient Lose weight Last Documented On 4 10:16AM ; [facility], [facility] Lose weight Last Documented On 4 10:06AM ; [facility], [facility] Lose weight Last Documented On 4 11:27AM ; [facility], [facility] Medical Equipment - Implanted Devices Includes: Current and historical Devices No Medical Equipment Recorded Medications Includes: Current and historical Medications Current Medications (continue as prescribed) Acetaminophen 500 MG Oral Tablet 02/08/2024 Provider : Diagnosis: Last Documented On 4 1:11PM By Polly Carvalho ; [facility], [facility] Aplisol 5 UNIT/0.1ML Intradermal Solution 02/08/2024 Provider: Diagnosis: Last Documented On 4 1:15PM By Polly Carvalho ; [facility], [facility] Vitamin B12 1000 MCG Oral Tablet 02/08/2024 Prov ider: Diagnosis: Last Documented On 4 1:15PM By Polly Carvalho ; [facility], [facility] predniSONE 5 MG Oral Tablet 02/08/2024 Provider: Diagnosis: Last Documented On 4 1:14PM By Polly Carvalho ; [facility], [facility] MiraLax 17 GM Oral Packet 02/08/2024 Provider: Diagnosis: Last Documented On 4 1:13PM By Polly Carvalho ; [facility], [facility] hydroCHLOROthiazide 12.5 MG Oral Tablet 02/08/2024 P rovider: Diagnosis: Last Documented On 4 1:13PM By Polly Carvalho ; [facility], [facility] CoQ-10 200 MG Oral Capsule 02/08/2024 Provider: Diagnosis: Last Documented On 4 1:12PM By Polly Carvalho ; [facility] Biotin 5000 MCG Oral Tablet 02/08/2024 Provider: Diagnosis: Last Documented On 4 1:12PM By Polly Carvalho ; [facility] Calcium Ascorbate 500 MG Oral Tablet 02/08/2024 Prov ider: Diagnosis: Last Documented On 4 1:12PM By Polly Carvalho ; [facility], [facility] Melatonin 10 MG Oral Capsule 02/08/2024 Provider : Diagnosis: Last Documented On 4 11:41AM By Ginny Feng ; [facility] Aspirin 81 MG Oral Tablet Delayed Release 02/08/2024 Provider: Diagnosis: Last Documented On 4 11:41AM By Ginny Feng ; [facility], [facility] B-Complex/Vitamin C (w/ Ca) Oral Tablet 02/08/2024 P rovider: Diagnosis: Last Documented On 4 11:42AM By Ginny Feng ; [facility], [facility] Albuterol Sulfate 2.5 MG/0.5 ML Inhalation Nebulization solution 02/08/2024 Provider: Diagnosis: Last Documented On 4 11:42AM By Ginny Feng ; [facility], [facility] oxyCODONE-Acetaminophen 5-325 MG Oral Tablet Provider: USMAN CLEVELAND MD Diagnosis: Last Documented On 4 11:26AM By Ginny Feng ; [facility], [facility] traZODone HCl 50 MG Oral Tablet 01/27/2024 Provider: USMAN CLEVELAND MD Diagnosis: Last Documented On 4 11:26AM By Ginny Feng ; [facility] Sertraline HCl 25 MG Oral Tablet 01/27/2024 Provider : USMAN CLEVELAND MD Diagnosis: Last Documented On 4 11:26AM By Ginny Feng ; [facility], [facility] Stiolto Respimat 2.5-2.5 MCG /ACT Inhalation Aerosol Solution 01/26/2024 Provider: USMAN CLEVELAND MD Diagnosis: Last Documented On 4 11:26AM By Ginny Feng ; [facility], [facility] Losartan Potassium-HCTZ 100- 12.5 MG Oral Tablet 01/23/2024 Provider: MUSTAPHA EASTMAN MD Diagnosis: Last Documented On 4 11:26AM By Ginny Feng ; [facility], [facility] Metoprolol Succinate ER 25 M G Oral Tablet Extended Release 24 Hour 01/08/2024 Provider: MUSTAPHA WATTS MD Diagnosis: Last Documented On 4 11:26AM By Ginny Feng ; [facility], [facility] FeroSul 325 (65 Fe) MG Oral Tablet 01/08/2024 Provid er: MUSTAPHA EASTMAN MD Diagnosis: Last Documented On 4 11:26AM By Ginny Feng ; [facility], [facility] Rosuvastatin Calcium 10 MG Oral Tablet 12/12/2023 Pr ovider: Diagnosis: Last Documented On 4 11:26AM By Ginny Feng ; [facility], [facility] Omeprazole 40 MG Oral Capsule Delayed Release 07/13/20 Provider: Diagnosis: Last Documented On 4 11:40AM By iGnny Feng ; [facility], [facility] Past Medications on file Losartan Potassium-HCTZ 100-12.5 MG Oral Tablet 11/08/2023 - 02/08/2024 Provider: MUSTAPHA EASTMAN MD Diagnosis: Last Documented On 4 11:26AM By Ginny Feng ; [facility], [facility] Medications Administered Includes: Administered Medications in patient's chart No Administered Medications Recorded Vital Signs Includes: Vital Signs from 08/28/2023 through 08/28/2024 Vital Name 05/02/2024 10:17A 03/07/2024 10:23A 02/07 11:26A Height (in) 65 65 65 Weight (lb) 170 170.8 170 Body Mass Index 28.3 28.4 28.3 Body Surface Area 1.8 1.8 1.8 Pain Level 5 3 5 Note: lc lc Last Documented: On 05/02/2024 10:22A M ; [facility], [facility] On 03/07/2024 10:23AM ; [facility] On 02/08/2024 11:27AM ; [facility] Results Includes: Results from 08/28/2023 through 08/28/2024 No Results Recorded For Specified Dates History of Present Illness History of Present Illness not supported for this document type No History of Present Illness Recorded Social History Description Last Updated Caffeine use 02/08/2024 Last Documented On 4 2:00PM ; [facility], [facility] Not a current smoker. 02/08/2024 Last Documented On 4 2:00PM ; [facility], [facility] Tobacco non-user 02/08/2024 Last Documented On 4 2:00PM ; [facility], [facility] No recent change in diet 02/08/2024 Last Documented On 4 2:00PM ; [facility], [facility] Not exercising regularly 02/08/2024 Last Documented On 4 2:00PM ; [facility], [facility] Not using alcohol 02/08/2024 Last Documented On 4 2:00PM ; [facility], [facility] Not using drugs 02/08/2024 Last Documented On 4 2:00PM ; [facility], [facility] Retired from work 02/08/2024 Last Documented On 4 2:00PM ; [facility], [facility] Smoking Status Unknown Procedures and Surgical History Includes: Procedures from 08/28/2023 through 08/28/2024 Procedures Code Diagnosis Performing Provider Service Location Service Date AP PELVIS w/ 1 VIEW HIP (LEFT) 34644 Fx unsp part of nk of l femr, subs for clos fx w ru Stone MD [facility] 05/02/2024 Last Documented On 4 4:54AM ; [facility] AP PELVIS w/ 1 VIEW HIP (LEFT) 75040 Fx unsp part of nk of l femr, subs for clos fx dee Stone MD [facility] 03/07/2024 Last Documented On 4 6:16AM ; [facility] AP PELVIS w/ 1 VIEW HIP (LEFT) 50256 Fx unsp part of nk of l femr, subs for clos fx w ru Bales PA-C [facility] 02/08/2024 Last Documented On 4 7:25AM ; [facility], [facility] TREAT THIGH 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) 48064 Fracture of unsp part of neck of left femur, init Scott Stone MD [facility] 01/24/2024 Last Documented On 4 12:45PM ; [facility], [facility] TREAT THIGH 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, 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) 94714 Fracture of unsp part of neck of left femur, init Milo Bales PA-C [facility] 01/24/2024 Last Documented On 4 8:38AM ; [facility], [facility] Surgical History Last Updated History of back surgery 02/08/2024 Last Documented On 4 2:00PM ; [facility], [facility] History of heart surgery 02/08/2024 Last Documented On 4 2:00PM ; [facility], [facility] History of hysterectomy 02/08/2024 Last Documented On 4 2:00PM ; [facility], [facility] History of total hip replacement Left hi p hemiarthroplasty 02/08/[address] [facility] 02/08/2024 Last Documented On 4 2:00PM ; [facility], [facility] Medical History Includes: Medical History in patient's chart Description Last Updated History of arthritis 02/08/2024 Last Documented On 4 2:00PM ; [facility], [facility] History of depression 02/08/2024 Last Documented On 4 2:00PM ; [facility], [facility] History of heart disease 02/08/2024 Last Documented On 4 2:00PM ; [facility], [facility] History of Heartburn / Acid Reflux 02/07 Last Documented On 4 2:00PM ; [facility], [facility] History of History of Blood Transfusion 02/08/2024 Last Documented On 4 2:00PM ; [facility], [facility] History of History of Cancer 02/08/2024 Last Documented On 4 2:00PM ; [facility] History of Hypertension 02/08/2024 Last Documented On 4 2:00PM ; [facility] History of Sleep Apnea 02/08/2024 Last Documented On 4 2:00PM ; [facility] Family History Includes: Family History in patient's chart Description Last Updated Family history of cancer 02/08/2024 Last Documented On 4 2:00PM ; [facility] Family history of heart disease 02/08/20 Last Documented On 4 2:00PM ; [facility] Family history of rheumatoid arthritis 0 02/08/2024 Last Documented On 4 2:00PM ; [facility] Family history of systemic hypertension 02/08/2024 Last Documented On 4 2:00PM ; [facility] Review of Systems Review of Systems not supported for this document type No Review of Systems Recorded Mental Status Description Anxiety Functional Status No Functional Status Recorded Physical Exam Physical Exam not supported for this document type No Physical Exam Recorded Allergies Includes: Active, inactive, and resolved Allergies Substance Type Reaction Onset Date Resolved Date Statu s Keflex Allergy 02/08/2024 Active Last Documented On 4 10:15AM ; [facility] Ibuprofen Allergy 02/08/2024 Active Last Documented On 4 10:15AM ; [facility] Encounters Includes: Encounters from 08/28/2023 through 08/28/2024 Encounter Provider Location Date Check-In Time Check-Out Time Diagnosis Follow Up Scott Stone MD [facility] 05/02/20 24 10:02AM 10:44AM Overweight Post Op Scott Stone MD [facility] 03/07/20 24 10:02AM 10:42AM Overweight New patient-Post op appointment Scott Stone MD [facility] 02/08/20 24 11:15AM 11:55AM Overweight [facility] Scott Stone MD Surgery 01/24/20 24 01/25/2024 12:40PM 11:59PM [facility] Scott Stone MD Surgery 01/23/20 24 01/25/2024 12:41PM 11:59PM Insurance Includes: Active Insurance Policies Plan Name Member ID Group # Subscriber Relationship Effect darnell Dates 1 - [employer] [id number] [place] Self Clinical Notes Includes: Signed Clinical Notes starting from 09/29/2022 * Progress note Date Encounter Last Documented by 03/07/2024 Post Op Last documented on 03/26/2024; 4:23 PM, Scott Stone MD; [facility], [facility] Active Problems & Conditions - Joint Pain in the Left Hip Chief Complaint The Chief Complaint is: Left hip. Referred Here Referred by Self. History of Present Illness [place] is an 78 year old female. - Allergy list reviewed - Problem list reviewed - Medication list reviewed - - Review of medications documented Patient is here today for follow-up for left hip hemiarthroplasty overall doing okay she is doing home physical therapy and occupational therapy and has nursing coming out of the house she did have a decubitus ulcers around her sacrum that is gotten better pain level 3/10 she is able to get up and walk on it she said with no pain though she does use a walker to walk with she is at home at this point in time she did go to [facility] Current Medication - Acetaminophen 500 MG Oral Tablet take as directed 0 days, 0 refills - Albuterol Sulfate 2.5 MG/0.5ML Inhalation Nebulization solution 0 days, 0 refills - Aplisol 5 UNIT/0.1ML Intradermal Solution use as directed 0 days, 0 refills - Aspirin 81 MG Oral Tablet Delayed Release 0 days, 0 refills - B-Complex/Vitamin C (w/ Ca) Oral Tablet 0 days, 0 refills - Biotin 5000 MCG Oral Tablet take as directed 0 days, 0 refills - Calcium Ascorbate 500 MG Oral Tablet take as directed 0 days, 0 refills - CoQ-10 200 MG Oral Capsule take as directed 0 days, 0 refills - [facility] Melatonin 10 MG Oral Capsule use as directed 0 days, 0 refills - [facility] Vitamin B12 1000 MCG Oral Tablet take as directed 0 days, 0 refills - FeroSul 325 (65 Fe) MG Oral Tablet 90 days, 0 refills - hydroCHLOROthiazide 12.5 MG Oral Tablet take as directed 0 days, 0 refills - Losartan Potassium-HCTZ 100-12.5 MG Oral Tablet 90 days, 0 refills - Metoprolol Succinate ER 25 MG Oral Tablet Extended Release 24 Hour 90 days, 0 refills - MiraLax 17 GM Oral Packet take as directed 0 days, 0 refills - Omeprazole 40 MG Oral Capsule Delayed Release 90 days, 0 refills - oxyCODONE-Acetaminophen 5-325 MG Oral Tablet 6 days, 0 refills - predniSONE 5 MG Oral Tablet take as directed 0 days, 0 refills - Rosuvastatin Calcium 10 MG Oral Tablet 90 days, 0 refills - Sertraline HCl 25 MG Oral Tablet 1 days, 0 refills - Stiolto Respimat 2.5-2.5 MCG/ACT Inhalation Aerosol Solution 30 days, 0 refills - traZODone HCl 50 MG Oral Tablet 1 days, 0 refills Past Medical/Surgical History Diagnoses: Heart disease. History of Blood Transfusion History of Cancer Sleep Apnea Heartburn / Acid Reflux Hypertension. Arthritis. Depression Surgical: - Heart surgery - Hysterectomy - Back surgery - Total hip replacement Left hip hemiarthroplasty 02/08/[address] [facility] Social History Not a current smoker. Current diet: No recent change in diet. Caffeine use: Caffeine use. Tobacco use: Tobacco non-user. Alcohol: Not using alcohol. Drug Use: Not using drugs. Habits: Not exercising regularly. Work: Retired from work. Allergies - Ibuprofen - Keflex Family History Cancer Heart disease Systemic hypertension Rheumatoid arthritis Review Of Systems Systemic: Not feeling tired, no recent weight loss, and no recent weight gain. Head: No headache and no sinus pain. Eyes: No vision problems. Cataracts and Glasses/Contacts. No Glaucoma. Otolaryngeal: No hearing loss and no tinnitus. Cardiovascular: No chest pain or discomfort and no palpitations. Hypertension and High Cholesterol. Pulmonary: No daytime asthma symptoms and no chronic cough. No wheezing. Gastrointestinal: No heartburn and no abdominal pain. No Indigestion, no Peptic Ulcer, no GI Stomach Bleed, and no Ulcers. Acid Reflux. Endocrine: No hot flashes. Muscle weakness. No Diabetes, no Hypothyroid, and no Hyperthyroid. Hematologic: No easy bleeding, no tendency for easy bruising, and no Anemia. Musculoskeletal: Arthritis and lower back pain. No soft tissue swelling. Pain localized to one or more joints. Neurological: No dizziness, no convulsions, and no numbness. Psychological: Anxiety. No emotional lability. Depression. No insomnia. Not crying for no reason. Skin: No dry skin. No Ulcers, no Scars, and no rash. Allergic and Immunologic: No complaint of seasonal allergic reaction. Physical Findings - Vitals taken 03/07/2024 10:23 am lc Height 65 in Weight 170 lbs 12.8 oz Body Mass Index 28.4 kg/m2 Body Surface Area 1.8 m2 Pain Level 3 The incision was healed She can get up and down out of the chair She does use a walker to walk with Tests Two views of the left hip show the implant in relatively good position made a suicide of the little bit 03/07/2024 Assessment - Overweight Left hip hemiarthroplasty 01/24/2024 Previous Tests Available previous imaging studies were reviewed Available previous history reviewed Counseling/Education - Tobacco non-user - Use of tobacco assessment performed - Lose weight Plan - Patient screened for future fall risk: documentation of any fall with injury in past year Fall Risk Assessment: This patient has been identified as a fall risk. Balance/gait along with postural blood pressure, vision and home fall hazards have been assessed. Medications have been reviewed, and recommendations made with regard to contributing factors for future falls. Plan of care: Consideration of vitamin D supplementation along with balance and strength training with consideration for formal physical therapy has been discussed with the patient. Patient was seen by myself and Dr. Chase Stevens PA-C. Patient will follow up 6 weeks we will get repeat x-rays we will have her continue with the home physical therapy. The patient was asking about with a she can state by herself at this point in time we would told her to be a discussion to have with the her family in her she does not no longer need to have the pillow between her legs she just want to reaching underneath of her from a standing position or sitting really low in the chair Notes This dictation was done with voice recognition software and may contain errors and omissions. Practice Management Use of tobacco assessment performed and patient screened for future fall risk documentation of any fall with injury in past year Review of medications documented. Care Team - MUSTAPHA EASTMAN MD - [employer]ers - Assess BMI satisfied 03/07/2024. - Assess Tobacco Use satisfied 02/08/2024. * Progress note Date Encounter Last Documented by 02/08/2024 New patient-Post op appointment Last documented on 03/06/2024; 2:00 PM, Scott Stone MD; [facility], [facility] Active Problems & Conditions - Joint Pain in the Left Hip Chief Complaint The Chief Complaint is: Left hip. Referred Here Referred by Self. History of Present Illness [place] is an 78 year old female. - Allergy list reviewed - Problem list reviewed - Medication list reviewed - Previous history of new onset pain 01/22/2024 Injury is not work related or an automotive accident. fell in kitchen - Patient pain level from 1-10: 8 - Yes, previous treatment. Dr. Stone [facility] - - Review of medications documented Current Medication - Acetaminophen 500 MG Oral Tablet take as directed 0 days, 0 refills - Albuterol Sulfate 2.5 MG/0.5ML Inhalation Nebulization solution 0 days, 0 refills - Aplisol 5 UNIT/0.1ML Intradermal Solution use as directed 0 days, 0 refills - Aspirin 81 MG Oral Tablet Delayed Release 0 days, 0 refills - B-Complex/Vitamin C (w/ Ca) Oral Tablet 0 days, 0 refills - Biotin 5000 MCG Oral Tablet take as directed 0 days, 0 refills - Calcium Ascorbate 500 MG Oral Tablet take as directed 0 days, 0 refills - CoQ-10 200 MG Oral Capsule take as directed 0 days, 0 refills - [facility] Melatonin 10 MG Oral Capsule use as directed 0 days, 0 refills - [facility] Vitamin B12 1000 MCG Oral Tablet take as directed 0 days, 0 refills - FeroSul 325 (65 Fe) MG Oral Tablet 90 days, 0 refills - hydroCHLOROthiazide 12.5 MG Oral Tablet take as directed 0 days, 0 refills - Losartan Potassium-HCTZ 100-12.5 MG Oral Tablet 90 days, 0 refills - Metoprolol Succinate ER 25 MG Oral Tablet Extended Release 24 Hour 90 days, 0 refills - MiraLax 17 GM Oral Packet take as directed 0 days, 0 refills - Omeprazole 40 MG Oral Capsule Delayed Release 90 days, 0 refills - oxyCODONE-Acetaminophen 5-325 MG Oral Tablet 6 days, 0 refills - predniSONE 5 MG Oral Tablet take as directed 0 days, 0 refills - Rosuvastatin Calcium 10 MG Oral Tablet 90 days, 0 refills - Sertraline HCl 25 MG Oral Tablet 1 days, 0 refills - Stiolto Respimat 2.5-2.5 MCG/ACT Inhalation Aerosol Solution 30 days, 0 refills - traZODone HCl 50 MG Oral Tablet 1 days, 0 refills Past Medical/Surgical History Diagnoses: Heart disease. History of Blood Transfusion History of Cancer Sleep Apnea Heartburn / Acid Reflux Hypertension. Arthritis. Depression Surgical: - Heart surgery - Hysterectomy - Back surgery - Total hip replacement Left hip hemiarthroplasty 02/08/[address] [facility] Social History Not a current smoker. Current diet: No recent change in diet. Caffeine use: Caffeine use. Tobacco use: Tobacco non-user. Alcohol: Not using alcohol. Drug Use: Not using drugs. Habits: Not exercising regularly. Work: Retired from work. Allergies - Ibuprofen - Keflex Family History Cancer Heart disease Systemic hypertension Rheumatoid arthritis Review Of Systems Systemic: Not feeling tired, no recent weight loss, and no recent weight gain. Head: No headache and no sinus pain. Eyes: No vision problems. Cataracts and Glasses/Contacts. No Glaucoma. Otolaryngeal: No hearing loss and no tinnitus. Cardiovascular: No chest pain or discomfort and no palpitations. Hypertension and High Cholesterol. Pulmonary: No daytime asthma symptoms and no chronic cough. No wheezing. Gastrointestinal: No heartburn and no abdominal pain. No Indigestion, no Peptic Ulcer, no GI Stomach Bleed, and no Ulcers. Acid Reflux. Endocrine: No hot flashes. Muscle weakness. No Diabetes, no Hypothyroid, and no Hyperthyroid. Hematologic: No easy bleeding, no tendency for easy bruising, and no Anemia. Musculoskeletal: Arthritis and lower back pain. No soft tissue swelling. Pain localized to one or more joints. Neurological: No dizziness, no convulsions, and no numbness. Psychological: Anxiety. No emotional lability. Depression. No insomnia. Not crying for no reason. Skin: No dry skin. No Ulcers, no Scars, and no rash. Allergic and Immunologic: No complaint of seasonal allergic reaction. Physical Findings - Vitals taken 02/08/2024 11:26 am lc Height 65 in Weight 170 lbs Body Mass Index 28.3 kg/m2 Body Surface Area 1.8 m2 Pain Level 5 HPI: Patient is here for postop visit of left hip hemiarthroplasty from 01/24/2024 at [facility] Physical exam: On exam incision is clean and dry, no drainage, redness, or sign of infection. Left lower extremities neurovascularly intact. She is able to stand up out of the wheelchair on her own however slowly X-rays: X-rays show she appears to have subsided some with the left hip stem, no fracture. Plan: Encouraged her she would continue walking she can be weight-bearing as tolerated she does not have any pain with walking. She wants to go home soon discussed with a family member to have home care for her. We will remove the melida today encouraged her still with postop posterior hip precautions Follow-up in 4 weeks The patient was seen by myself, Milo Bales PA-C Electronically signed KATHERINE Joy Assessment - Overweight Previous Tests Available previous imaging studies were reviewed Available previous history reviewed Counseling/Education - Tobacco non-user - Use of tobacco assessment performed - Lose weight Plan - Patient screened for future fall risk: documentation of any fall with injury in past year Fall Risk Assessment: This patient has been identified as a fall risk. Balance/gait along with postural blood pressure, vision and home fall hazards have been assessed. Medications have been reviewed, and recommendations made with regard to contributing factors for future falls. Plan of care: Consideration of vitamin D supplementation along with balance and strength training with consideration for formal physical therapy has been discussed with the patient. Notes This dictation was done with voice recognition software and may contain errors and omissions. Practice Management Use of tobacco assessment performed and patient screened for future fall risk documentation of any fall with injury in past year Review of medications documented. Care Team - MUSTAPHA EASTMAN MD - MANAGER RETENTION Health Reminders - Assess BMI satisfied 02/08/2024. - Assess Tobacco Use satisfied 02/08/2024.
--- OUTSIDE RECORDS SUMMARY | 2024-08-28 15:59 | XMS_ITS | Encounter Summary ---
Author Organization [employer] Address [address] [place] [id number] Care Team Providers Care Medical Care Evaluation Specialist Name Role Phone Unavailable Primary Care Provider Unavailabl e Encounter Details Date Type Department Care Team (Late st Contact Info) Description 12/13/2018 Transcribed Document [facility] Family Medicine [facility] [place] [address] ProviderHelen MD [facility] [place] [address] Social History Tobacco Use Types Packs/Day Years Used Date Smoking Tobacco: Never Assessed Comments Unknown Sex and Gender Information Value Date Recorded Sex Assigned at Not on file Legal Sex Female 2:04 PM CDT Gender Identity Not on file Sexual Orientation Not on file documented as of this encounter Miscellaneous Notes * Cerner Conversion Note - Historical ProviderMD - 12/13/2018 1:56 PM ECOLOGICAL TECHNICAL OFFICER PAT Adult Entered On: 12/13/2018 14:00 EST Performed On: 12/13/2018 13:56 EST by ANDREW HINES RN Pain Assessment Pain Assessment : Initial assessment Pain Location Comment : denies pain JEWELS PURVIS RN - 12/14/2018 12:06 EST Height and Weight, Clinical Dosing Height Source : Measured Height Entry Format : [place] Height, Feet : 0 ft(Converted to: 0 cm, 0 Inch) Height, Inches : 63 Inch(Converted to: 5 ft 3 Inch, 160.02 cm) Clinical Height : 160.02 cm Weight Source : Standing scale Weight Entry Format : [place] Clinical Dosing Weight : 76.14 kg Weight, Pounds : 167.5 lb Body Surface Area (BSA) : 1.8 m2 Body Mass Index : 29.7 kg/m2 (HI) [place] Body Weight : 52 kg JEWELS PURVIS RN - 12/14/2018 12:06 EST Health Histories Smoking Status : Former smoker, quit more than 30 days ago Smokeless Tobacco Status : Never ANDREW HINES RN - 12/13/2018 13:56 EST Social History (As Of: 12/13/2018 14:00:29 EST) Tobacco: Former smoker, quit more than 30 days ago Smoking Status. Never Smokeless Tobacco Status. (Last Updated: 12/13/2018 13:56:12 EST by ANDREW HINES RN) Alcohol: Alcohol Use History No. Use in Last 12 Months: No. (Last Updated: 12/13/2018 13:56:21 EST by ANDREW HINES RN) Substance Abuse: Drug Use Hx: No. Use in Last 12 Months: No. (Last Updated: 12/13/2018 13:56:29 EST by ANDREW HINES RN) Infectious Disease History Infectious Disease History : Chicken pox/Shingles, Measles Fever/Chills Last 48 Hours : No Travel To Regions with Travel Advisories : No Travel Outside [place] Within Last 30 Days : No Contact With Traveler to Advisory Region : No Tuberculosis Symptoms : None JEWELS PURVIS RN - 12/14/2018 12:06 EST Anesthesia/Transfusion History Family History of Anesthesia Reaction : Prior transfusion without reaction Blood Transfusion Acceptable to Patient : Yes Transfusion History : Prior anesthesia without reaction Family History of Anesthesia Reaction : None ANDREW HINES RN - 12/13/2018 13:56 EST Functional Assessment Functional ADL Evaluation Index EBN Bathing : Independent (2) Dressing : Independent (2) Toileting : Independent (2) Transferring Bed or Chair : Independent (2) Continence : Independent (2) Feeding : Independent (2) ANDREW HINES RN - 12/13/2018 13:56 EST ADL Index Score : 12 ANDREW HINES RN - 12/13/2018 13:56 EST Advance Directive Copy Advance Directive Verified/on Chart : Yes JEWELS PURVIS RN - 12/14/2018 12:06 EST Patient has Advance Directive *Q : Yes, Advance Directive with the patient Advance Directive Type : Living will ANDREW HINES RN - 12/13/2018 13:56 EST Psychosocial History Do You Have a History of the Following? : Depression Currently in Unsafe Situation : No Tried to Harm Yourself in the Past? : No Thoughts of Harming/Killing Yourself : No ANDREW HINES RN - 12/13/2018 13:56 EST General Info Primary Language : Czech Communication Barrier : None JEWELS PURVIS RN - 12/14/2018 12:06 EST Arrived From : Home Mode of Arrival on Unit : Ambulatory Legal Guardian : Daughter Want Family/Rep/Phys Notified of Admit : No Emergency Contact #1 : naye Emergency Contact #1 Emergency Contact #1 Relationship : daughter Emergency Contact #2 : , Emergency Contact #2 Phone Number : . Emergency Contact #2 Relationship : . ANDREW HINES RN - 12/13/2018 13:56 EST Taj Scale Taj Sensory Perception : No impairment Taj Moisture : Rarely moist Taj Activity : Walks occasionally Taj Mobility : Slightly limited Taj Nutrition : Adequate Taj Friction and Shear : No apparent problem Taj Score : 20 ANDREW HINES RN - 12/13/2018 13:56 EST Sleep Apnea Risk Assmt Hx of Obstructive Sleep Apnea Diagnosis : No Snore Loudly : Yes Tired, Fatigued, or Sleepy During Day : No Observed Stopping Breathing During Sleep : No Have/Are Being Treated for Hypertension : Yes STOP Sleep Apnea Risk Level Score : 2 STOP Sleep Apnea Risk Level : High ANDREW HINES RN - 12/13/2018 13:56 EST documented in this encounter Plan of Treatment Not on file documented as of this encounter Visit Diagnoses Not on filedocumented in this encounter
--- OUTSIDE RECORDS SUMMARY | 2024-08-28 15:59 | XMS_ITS | Encounter Summary ---
Author Organization [employer] Address [address] [address] Care Team Providers Care Plasma Processing Technician Name Role Phone Unavailable Primary Care Provider Unavailabl e Encounter Details Date Type Department Care Team (Late st Contact Info) Description 12/14/2018 Transcribed Document [facility] [address] [facility] [address] [place] [address] Francisco Herndon MD [address] [facility] [place] [address] Social History Tobacco Use Types Packs/Day Years Used Date Smoking Tobacco: Never Assessed Comments Unknown Sex and Gender Information Value Date Recorded Sex Assigned at Not on file Legal Sex Female 2:04 PM CDT Gender Identity Not on file Sexual Orientation Not on file documented as of this encounter Miscellaneous Notes * Cerner Conversion Note - Francisco Herndon MD - 12/14/2018 5:06 PM EST DATE OF PROCEDURE:12/14/2018 PRIMARY CARE PHYSICIAN: Dr. Nabil Gilbert. 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 POSTOPERATIVE DIAGNOSIS(ES): L4-5 stenosis. INDICATION FOR PROCEDURE: L4-5 stenosis. PROCEDURE: Minimally invasive L4-5 laminectomy. SURGEON: Francisco Herndon MD STARCH COOKER: Endy Hogue. TYPE OF ANESTHESIA: GEA. DESCRIPTION OF PROCEDURE IN DETAIL: Once consent was noted to be on chart, Ms. Verde was taken to the operating room. She was anesthetized and placed into the prone position on a Doug spine frame. All pressure points were checked and carefully padded. Preoperative antibiotics were given. A time-out was called. Fluoroscopy was draped into the field and used throughout the case for radiographic guidance. Time-out was called. A #15 blade was used to make a horizontal skin incision to the left midline over L4-5. The fascia was incised. A tubular dilator system was docked on the interspace. The operating microscope was brought into the field. A high-speed drill #2 and #3 Kerrison was used to perform a hemilaminectomy, mesial facetectomy, and foraminotomy fully decompressing the left L5 nerve root. The ligamentum flavum was removed. We then arched the retractor over to look across the midline. A completion laminectomy was performed fully decompressing the right side. All ligamentum flavum across the midline was removed out to the medial pedicle wall of L5. A Alves ball probe was passed easily bilaterally verifying full decompression. No CSF was visualized throughout this procedure. Meticulous hemostasis was obtained and the retractor was removed. Some steroid was left on the thecal sac for postop analgesia. 0-Vicryl closed the fascia, 2-0 Vicryl closed space and closed the skin subcuticularly. Mastisol and Steri-Strips were applied. Covaderm was applied. Endy Hogue assisted throughout the surgery and helped perform the closure. SPECIMEN SENT: None. ESTIMATED BLOOD LOSS: 25 mL. DRAINS: None. COMPLICATIONS: None. Francisco Herndon M.D. Dict: 12/14/2018 16:06:36 Trans: 12/14/2018 20:37:15 CC1: Francisco Herndon M.D. CC2: Dr. Nabil Gilbert; [address] [place] [address], [address] [address]; [phone] documented in this encounter Plan of Treatment Not on file documented as of this encounter Visit Diagnoses Not on filedocumented in this encounter
--- OUTSIDE RECORDS SUMMARY | 2024-08-28 15:59 | XMS_ITS | Clinical Summary ---
Author Organization [facility] Address [address] [place] [address] Phone Care Team Providers Care Logistics Officer Name Role Phone RAIZA SALAZAR, MUSTAPHA ROMO Unavailable [phone] Chase SALAZAR, Scott De La Cruz Unavailable [phone] Reason for Visit and Chief Complaint The Chief Complaint is: left hip Problems Includes: Problems addressed during this encounter and other active Problems All Visits Onset Date Resolved Date Provider Condition S tatus Joint Pain in the Left Hip 02/08/2024 Scott Stone MD Active Last Documented On 4 11:15AM ; [facility] Plan of Treatment - Patient screened for future fall risk: documentation of any fall with injury in past year - Last Documented On 05/02/2024 11:13AM ; [facility] Fall Risk Assessment: This patient has been [...] therapy has been discussed with the patient. - Last Documented On 05/02/2024 11:13AM ; [facility] Instructions to patient Lose weight Last Documented On 4 10:16AM ; [facility] Assessments Includes: Assessments from this encounter Findings - Overweight - Last Documented On 05/02/2024 11:13AM ; [facility] Left hip hemiarthroplasty 01/24/2024 - Last Documented On 05/02/2024 11:13AM ; [facility] Instructions Includes: Instructions from this encounter Instructions to patient Lose weight Last Documented On 4 10:16AM ; [facility] Medical Equipment - Implanted Devices Includes: Current Devices No Medical Equipment Recorded Medications Includes: Medications discussed during this encounter and other current Medications Current Medications (continue as prescribed) Acetaminophen 500 MG Oral Tablet 02/08/2024 Provider : Diagnosis: Last Documented On 4 1:11PM By Polly Carvalho ; [facility] Aplisol 5 UNIT/0.1ML Intradermal Solution 02/08/2024 Provider: Diagnosis: Last Documented On 4 1:15PM By Polly Carvalho ; [facility] Vitamin B12 1000 MCG Oral Tablet 02/08/2024 Prov ider: Diagnosis: Last Documented On 4 1:15PM By Polly Carvalho ; [facility] predniSONE 5 MG Oral Tablet 02/08/2024 Provider: Diagnosis: Last Documented On 4 1:14PM By Polly Carvalho ; [facility] MiraLax 17 GM Oral Packet 02/08/2024 Provider: Diagnosis: Last Documented On 4 1:13PM By Polly Carvalho ; [facility] hydroCHLOROthiazide 12.5 MG Oral Tablet 02/08/2024 P nakiader: Diagnosis: Last Documented On 4 1:13PM By Polly Carvalho ; [facility] CoQ-10 200 MG Oral Capsule 02/08/2024 Provider: Diagnosis: Last Documented On 4 1:12PM By Polly Carvalho ; [facility] Biotin 5000 MCG Oral Tablet 02/08/2024 Provider: Diagnosis: Last Documented On 4 1:12PM By Polly Carvalho ; [facility] Calcium Ascorbate 500 MG Oral Tablet 02/08/2024 Prov ider: Diagnosis: Last Documented On 4 1:12PM By Polly Carvalho ; [facility] Melatonin 10 MG Oral Capsule 02/08/2024 Provider : Diagnosis: Last Documented On 4 11:41AM By Ginny Feng ; [facility] Aspirin 81 MG Oral Tablet Delayed Release 02/08/2024 Provider: Diagnosis: Last Documented On 4 11:41AM By Ginny Feng ; [facility] B-Complex/Vitamin C (w/ Ca) Oral Tablet 02/08/2024 Mirella yeeder: Diagnosis: Last Documented On 4 11:42AM By Ginny Feng ; [facility] Albuterol Sulfate 2.5 MG/0.5 ML Inhalation Nebulization solution 02/08/2024 Provider: Diagnosis: Last Documented On 4 11:42AM By Ginny Feng ; [facility] oxyCODONE-Acetaminophen 5-325 MG Oral Tablet Provider: USMAN CLEVELAND MD Diagnosis: Last Documented On 4 11:26AM By Ginny Feng ; [facility] traZODone HCl 50 MG Oral Tablet 01/27/2024 Provider: USMAN CLEVELAND MD Diagnosis: Last Documented On 4 11:26AM By Ginny Feng ; [facility] Sertraline HCl 25 MG Oral Tablet 01/27/2024 Provider : USMAN CLEVELAND MD Diagnosis: Last Documented On 4 11:26AM By Ginny Feng ; [facility] Stiolto Respimat 2.5-2.5 MCG /ACT Inhalation Aerosol Solution 01/26/2024 Provider: USMAN CLEVELAND MD Diagnosis: Last Documented On 4 11:26AM By Ginny Feng ; [facility] Losartan Potassium-HCTZ 100- 12.5 MG Oral Tablet 01/23/2024 Provider: MUSTAPHA EASTMAN MD Diagnosis: Last Documented On 4 11:26AM By Ginny Feng ; [facility] Metoprolol Succinate ER 25 M G Oral Tablet Extended Release 24 Hour 01/08/2024 Provider: MUSTAPHA WATTS MD Diagnosis: Last Documented On 4 11:26AM By Ginny Feng ; [facility] FeroSul 325 (65 Fe) MG Oral Tablet 01/08/2024 Provid er: MUSTAPHA EASTMAN MD Diagnosis: Last Documented On 4 11:26AM By Ginny Feng ; [facility] Rosuvastatin Calcium 10 MG Oral Tablet 12/12/2023 Pr ovider: Diagnosis: Last Documented On 4 11:26AM By Ginny Feng ; [facility] Omeprazole 40 MG Oral Capsule Delayed Release 07/13/20 23 Provider: Diagnosis: Last Documented On 4 11:40AM By Ginny Feng ; [facility] Medications Administered Includes: Administered Medications from this encounter No Administered Medications Recorded Vital Signs Includes: Vital Signs from this encounter Vital Name 05/02/2024 10:17A Height (in) 65 Weight (lb) 170 Body Mass Index 28.3 Body Surface Area 1.8 Pain Level 5 Last Documented: On 05/02/2024 10:22A M ; [facility] Results Includes: Results discussed during this encounter No Results Recorded For Specified Dates History of Present Illness Includes: History of Present Illness from this encounter ALEXIS Verde is an 78 year old female. - Allergy list reviewed - Problem list reviewed - Medication list reviewed - - Review of medications documented Social History Description Last Updated Caffeine use 02/08/2024 Last Documented On 4 10:15AM ; [facility] Not a current smoker. 02/08/2024 Last Documented On 4 10:15AM ; [facility] Tobacco non-user 02/08/2024 Last Documented On 4 10:15AM ; [facility] No recent change in diet 02/08/2024 Last Documented On 4 10:15AM ; [facility] Not exercising regularly 02/08/2024 Last Documented On 4 10:15AM ; [facility] Not using alcohol 02/08/2024 Last Documented On 4 10:15AM ; [facility] Not using drugs 02/08/2024 Last Documented On 4 10:15AM ; [facility] Retired from work 02/08/2024 Last Documented On 4 10:15AM ; [facility] Smoking Status Unknown Procedures and Surgical History Includes: Procedures from this encounter Procedures Code Diagnosis Performing Provider Service Location Service Date AP PELVIS w/ 1 VIEW HIP (LEFT) 59062 Fx unsp part of nk of l femr, subs for clos fx w routn heal Scott Stone MD [facility] 05/02/2024 Last Documented On 4 4:54AM ; [facility] use of tobacco assessment performed 1000F Last Documented On 4 10:16AM ; [facility] patient screened for future fall risk: documentation of any fall with injury in past year 1100F Last Documented On 4 10:16AM ; [facility] review of medications documented 1160F Last Documented On 4 10:16AM ; [facility] Surgical History Last Updated History of back surgery 02/08/2024 Last Documented On 4 10:15AM ; [facility] History of heart surgery 02/08/2024 Last Documented On 4 10:15AM ; [facility] History of hysterectomy 02/08/2024 Last Documented On 4 10:15AM ; [facility] History of total hip replacement Left hi p hemiarthroplasty 02/08/24 @ [facility] 02/08/2024 Last Documented On 4 10:15AM ; [facility] Medical History Includes: Medical History addressed during this encounter Description Last Updated History of arthritis 02/08/2024 Last Documented On 4 10:15AM ; [facility] History of depression 02/08/2024 Last Documented On 4 10:15AM ; [facility] History of heart disease 02/08/2024 Last Documented On 4 10:15AM ; [facility] History of Heartburn / Acid Reflux 02/07 Last Documented On 4 10:15AM ; [facility] History of History of Blood Transfusion 02/08/2024 Last Documented On 4 10:15AM ; [facility] History of History of Cancer 02/08/2024 Last Documented On 4 10:15AM ; [facility] History of Hypertension 02/08/2024 Last Documented On 4 10:15AM ; [facility] History of Sleep Apnea 02/08/2024 Last Documented On 4 10:15AM ; [facility] Family History Includes: Family History addressed during this encounter Description Last Updated Family history of cancer 02/08/2024 Last Documented On 4 10:15AM ; [facility] Family history of heart disease 02/08/20 Last Documented On 4 10:15AM ; [facility] Family history of rheumatoid arthritis 0 02/08/2024 Last Documented On 4 10:15AM ; [facility] Family history of systemic hypertension 02/08/2024 Last Documented On 4 10:15AM ; [facility] Review of Systems Includes: Review of Systems from this encounter Systemic: Not feeling tired, no recent weight [...] Immunologic: No complaint of seasonal allergic reaction. Mental Status Includes: Mental Status from this encounter Description Anxiety Functional Status Includes: Functional Status from this encounter No Functional Status Recorded Physical Exam Includes: Physical Exam from this encounter Allergies Includes: Active Allergies Substance Type Reaction Onset Date Resolved Date Statu s Keflex Allergy 02/08/2024 Active Last Documented On 4 10:15AM ; [facility] Ibuprofen Allergy 02/08/2024 Active Last Documented On 4 10:15AM ; [facility] Encounters Encounter Provider Location Date Check-In Time Check-Out Time Diagnosis Follow Up Scott Stone MD [facility] 4 10:02AM 10:44AM Overweight Insurance Includes: Active Insurance Policies Plan Name Member ID Group # Subscriber Relationship Effect darnell Dates 1 - [employer] [id number] [place] Self Clinical Notes Includes: Clinical Notes from this encounter No Clinical Notes Recorded
--- OUTSIDE RECORDS SUMMARY | 2024-08-28 15:59 | XMS_ITS | Encounter Summary ---
Author Organization [employer] Address [address] [place] [address] Care Team Providers Care Drier Tender Name Role Phone Unavailable Primary Care Provider Unavailabl e Encounter Details Date Type Department Care Team (Late st Contact Info) Description 12/14/2018 Transcribed Document [facility] [place] [facility] [place] [address] ProviderHelen MD [address] [place] [address] Social History Tobacco Use Types Packs/Day Years Used Date Smoking Tobacco: Never Assessed Comments Unknown Sex and Gender Information Value Date Recorded Sex Assigned at Not on file Legal Sex Female 2:04 PM CDT Gender Identity Not on file Sexual Orientation Not on file documented as of this encounter Miscellaneous Notes * Cerner Conversion Note - Helen ProviderMD - 12/14/2018 6:18 PM COLORING CHECKER Discharge Instructions Entered On: 12/14/2018 18:19 EST Performed On: 12/14/2018 18:18 EST by Jalyn Fermin RN DC Instructions HWD Stroke/TIA Discharge Ins : N/A Heart Failure Discharge Ins : N/A Warfarin Discharge Ins : N/A Diet After Discharge : Regular diet as tolerated, Do not drink any alcoholic beverages Activity After Discharge : As tolerated, Rest and relax today, No strenuous activities, No heavy lifting over 10 pounds Driving After Discharge : Other: Do not drive for 5 days or while taking narcotics Showering/Bathing : No tub bathing, soaking, or swimming, Other: May shower tomorrow. Wound/Incision Care After Discharge : Keep operative site/wound site clean and dry Wound/Incision Care At Discharge Comment cision Care At Discharge Comment : Follow instructionsout from [facility] Neurosurgery. Jalyn Fermin RN - 12/14/2018 18:18 EST Electronically signed by [facility] Conversion [place] Routeman Cerner at 02/02/2023 12:21 PM CDT documented in this encounter Plan of Treatment Not on file documented as of this encounter Visit Diagnoses Not on filedocumented in this encounter
--- OUTSIDE RECORDS SUMMARY | 2024-08-28 15:59 | XMS_ITS | Encounter Summary ---
Author Organization [employer] Address [address] [facility] [facility] [place] [address] Care Team Providers Care Farm Machinery Engine Mechanic Name Role Phone Unavailable Primary Care Provider Unavailabl e Encounter Details Date Type Department Care Team (Late st Contact Info) Description 12/14/2018 Historic Encounter [address] [address] ProviderHayley Historical Social History Tobacco Use Types Packs/Day Years Used Date Smoking Tobacco: Never Assessed Comments Unknown Sex and Gender Information Value Date Recorded Sex Assigned at Not on file Legal Sex Female 2:04 PM CDT Gender Identity Not on file Sexual Orientation Not on file documented as of this encounter Plan of Treatment Not on file documented as of this encounter Procedures Procedure Name Priority Date/Time Associated Diagnosis Comments URINALYSIS WITHOUT MICROSCOPIC ([facility] DATA CONV) Routine 12/14/2018 12:26 PM EST documented in this encounter Results * (ABNORMAL) URINALYSIS WITHOUT MICROSCOPIC ([facility] DATA CONV) (12/14/2018 12:26 PM EST) Pathologist [facility] Urine Type U CleanCatch 12/14/2018 4:15 PM EST Urine Color Yellow 12/14/2018 5:36 PM EST Comment: Substances that cause HIGHLY abnormal urine color may affect the accuracy of URINE CHEMISTRY reagent strip results due to colorimetric interference. ??These include visible levels of blood or bilirubin, drugs containing dyes, and some antibiotics such as nitrofurantoin and riboflavin which can cause markedly abnormal urine coloration. Urine Appearance Clear 12/15/19 5:36 PM EST Urine Glucose Dipstick Negative Negative 12/14/2018 5:36 PM EST Urine Bilirubin Dipstick Negative Negative 12/14/2018 5:36 PM EST Urine Ketones Dipstick Negative Negative 12/14/2018 5:36 PM EST Urine Specific [place] 1.014 1.005 - 1.030 12/14/2018 5:36 PM EST Urine Blood Dipstick Negative Negative 12/14/2018 5:36 PM EST Urine pH Dipstick 5.0(L) 6.0 - 8.0 12/14/2018 5:36 PM EST Urine Protein Dipstick Negative Negative 12/14/2018 5:36 PM EST Comment:Use of urine preserv atives may elevate protein results and reduce bilirubin, blood and nitrite results. Urine Urobilinogen Dipstick 1.0 EU/dL 12/14/2018 5:36 PM EST Urine Nitrite Negative Negative 12/14/2018 5:36 PM EST Urine Leukocyte Esterase Negative Negative 12/14/2018 5:36 PM EST Urine 12/14/2018 12:2 6 PM EST 12/14/2018 5:32 PM EST us Sle Historical Provider URINE ORDERABLES Final Result [facility] [address] [phone] documented in this encounter Visit Diagnoses Not on filedocumented in this encounter
--- OUTSIDE RECORDS SUMMARY | 2024-08-28 15:59 | XMS_ITS | Encounter Summary ---
Author Organization [employer] Address [address] [place] [address] Care Team Providers Care Blood Bank Custodian Name Role Phone Unavailable Primary Care Provider Unavailabl e Encounter Details Date Type Department Care Team (Late st Contact Info) Description 12/14/2018 Transcribed Document [facility] [place] [facility] [address] ProviderHelen MD [address] [place], [place] [id number] Social History Tobacco Use Types Packs/Day Years Used Date Smoking Tobacco: Never Assessed Comments Unknown Sex and Gender Information Value Date Recorded Sex Assigned at Not on file Legal Sex Female 2:04 PM CDT Gender Identity Not on file Sexual Orientation Not on file documented as of this encounter Miscellaneous Notes * Cerner Conversion Note - Helen ProviderMD - 12/14/2018 3:38 PM CLUTCH SPECIALIST [facility] Main OR Preop Summary Primary Physician: ASHOK CHENG MD-SNAlee Finalized Date/Time: 12/14/18 16:03:23 Pt. Name: BERNICE NAVARRETE/Sex: 1945 Female Med Rec #: [id number] Physician: ASHOK CHENG MD-SNU Financial #: [id number] Pt. Type: O Room/Bed: Admit/Disch: 12/14/18 11:04:00 - Institution: [facility] PreOp Case Times Entry 1 In Preop 12/14/18 11:12:00 Ready for Holding n/a Room Patient Ready for 12/14/18 12:34:00 Surgery Patient Out of Preop 12/14/18 15:10:00 Patient Out of n/a Holding Room Last Modified By: WILLA CIFUENTES RN 12/14/18 16:03:22 [facility] PreOp Case Times Audit 12/14/18 16:03:22 Foundation Maker: KELIN Modifier: [email or web address] <+> 1 Patient Out of Preop 12/14/18 12:35:01 Foundation Maker: KELIN Modifier: KELIN <+> 1 Patient Ready for Surgery Finalized By: WILLA CIFUENTES, RN Document Signatures Signed By: WILLA CIFUENTES RN 12/14/18 16:03 Electronically signed by Michelet [facility] Conversion Material Requisitioner Cerner at 02/02/2023 12:33 PM CDT documented in this encounter Plan of Treatment Not on file documented as of this encounter Visit Diagnoses Not on filedocumented in this encounter
--- OUTSIDE RECORDS SUMMARY | 2024-08-28 15:59 | XMS_ITS | Referral Summary ---
Author Organization [facility] [employer] Address [address] [place] [address] Care Team Providers Care Java User Interface Developer Name Role Phone Unavailable Primary Care Provider Unavailabl e Social History Tobacco Use Types Packs/Day Years Used Date Smoking Tobacco: Never Assessed Comments Unknown Sex and Gender Information Value Date Recorded Sex Assigned at Not on file Legal Sex Female 2:04 PM CDT Gender Identity Not on file Sexual Orientation Not on file Plan of Treatment Not on file
--- OUTSIDE RECORDS SUMMARY | 2024-08-28 15:59 | XMS_ITS | Clinical Summary ---
Author Organization [facility] Address [address] [place] [address] Phone Care Team Providers Care Screen Printing Equipment Setter Name Role Phone RAIZA SALAZAR, MUSTAPHA ROMO Unavailable [phone] Chase SALAZAR, Scott De La Cruz Unavailable [phone] Reason for Visit and Chief Complaint The Chief Complaint is: left hip Problems Includes: Problems addressed during this encounter and other active Problems All Visits Onset Date Resolved Date Provider Condition S tatus Joint Pain in the Left Hip 02/08/2024 Scott Stone MD Active Last Documented On 4 11:15AM ; [facility] Plan of Treatment - Patient screened for future fall risk: documentation of any fall with injury in past year - Last Documented On 03/26/2024 4:23PM ; [facility] Fall Risk Assessment: This patient has been [...] with the patient. - Last Documented On 03/26/2024 4:23PM ; [facility] Patient was seen by myself and Dr. [...] or sitting really low in the chair - Last Documented On 03/26/2024 4:23PM ; [facility] Instructions to patient Lose weight Last Documented On 4 10:06AM ; [facility] Assessments Includes: Assessments from this encounter Findings - Overweight - Last Documented On 03/26/2024 4:23PM ; [facility] Left hip hemiarthroplasty 01/24/2024 - Last Documented On 03/26/2024 4:23PM ; [facility] Instructions Includes: Instructions from this encounter Instructions to patient Lose weight Last Documented On 4 10:06AM ; [facility] Medical Equipment - Implanted Devices Includes: Current Devices No Medical Equipment Recorded Medications Includes: Medications discussed during this encounter and other current Medications Current Medications (continue as prescribed) Acetaminophen 500 MG Oral Tablet 02/08/2024 Provider : Diagnosis: Last Documented On 4 1:11PM By Polly Carvalho ; [facility] Aplisol 5 UNIT/0.1ML Intradermal Solution 02/08/2024 Provider: Diagnosis: Last Documented On 4 1:15PM By Polly Carvalho ; [facility] Vitamin B12 1000 MCG Oral Tablet 02/08/2024 Prov ider: Diagnosis: Last Documented On 4 1:15PM By Polly Carvalho ; [facility] predniSONE 5 MG Oral Tablet 02/08/2024 Provider: Diagnosis: Last Documented On 4 1:14PM By Polly Carvalho ; [facility] MiraLax 17 GM Oral Packet 02/08/2024 Provider: Diagnosis: Last Documented On 4 1:13PM By Polly Carvalho ; [facility] hydroCHLOROthiazide 12.5 MG Oral Tablet 02/08/2024 P rovider: Diagnosis: Last Documented On 4 1:13PM By Polly Carvalho ; [facility] CoQ-10 200 MG Oral Capsule 02/08/2024 Provider: Diagnosis: Last Documented On 4 1:12PM By Polly Carvalho ; [facility] Biotin 5000 MCG Oral Tablet 02/08/2024 Provider: Diagnosis: Last Documented On 4 1:12PM By Polly Carvalho ; [facility] Calcium Ascorbate 500 MG Oral Tablet 02/08/2024 Prov ider: Diagnosis: Last Documented On 4 1:12PM By Polly Carvalho ; [facility] Melatonin 10 MG Oral Capsule 02/08/2024 Provider : Diagnosis: Last Documented On 4 11:41AM By Ginny Feng ; [facility] Aspirin 81 MG Oral Tablet Delayed Release 02/08/2024 Provider: Diagnosis: Last Documented On 4 11:41AM By Ginny Feng ; [facility] B-Complex/Vitamin C (w/ Ca) Oral Tablet 02/08/2024 P rodianeder: Diagnosis: Last Documented On 4 11:42AM By Ginny Feng ; [facility] Albuterol Sulfate 2.5 MG/0.5 ML Inhalation Nebulization solution 02/08/2024 Provider: Diagnosis: Last Documented On 4 11:42AM By Ginny Feng ; [facility] oxyCODONE-Acetaminophen 5-325 MG Oral Tablet Provider: USMAN CLEVELAND MD Diagnosis: Last Documented On 4 11:26AM By Ginny Feng ; [facility] traZODone HCl 50 MG Oral Tablet 01/27/2024 Provider: USMAN CLEVELAND MD Diagnosis: Last Documented On 4 11:26AM By Ginny Feng ; [facility] Sertraline HCl 25 MG Oral Tablet 01/27/2024 Provider : USMAN CLEVELAND MD Diagnosis: Last Documented On 4 11:26AM By Ginny Feng ; [facility] Stiolto Respimat 2.5-2.5 MCG /ACT Inhalation Aerosol Solution 01/26/2024 Provider: USMAN CLEVELAND MD Diagnosis: Last Documented On 4 11:26AM By Ginny Feng ; [facility] Losartan Potassium-HCTZ 100- 12.5 MG Oral Tablet 01/23/2024 Provider: MUSTAPHA EASTMAN MD Diagnosis: Last Documented On 4 11:26AM By Ginyn Feng ; [facility] Metoprolol Succinate ER 25 M G Oral Tablet Extended Release 24 Hour 01/08/2024 Provider: MUSTAPHA WATTS MD Diagnosis: Last Documented On 4 11:26AM By Ginny Feng ; [facility] FeroSul 325 (65 Fe) MG Oral Tablet 01/08/2024 Provid er: MUSTAPHA EASTMAN MD Diagnosis: Last Documented On 4 11:26AM By Ginny Feng ; [facility] Rosuvastatin Calcium 10 MG Oral Tablet 12/12/2023 Pr ovider: Diagnosis: Last Documented On 4 11:26AM By Ginny Feng ; [facility] Omeprazole 40 MG Oral Capsule Delayed Release 07/13/20 Provider: Diagnosis: Last Documented On 4 11:40AM By Ginny Feng ; [facility] Medications Administered Includes: Administered Medications from this encounter No Administered Medications Recorded Vital Signs Includes: Vital Signs from this encounter Vital Name 03/07/2024 10:23A Height (in) 65 Weight (lb) 170.8 Body Mass Index 28.4 Body Surface Area 1.8 Pain Level 3 Note: lc Last Documented: On 03/07/2024 10:23A M ; [facility] Results Includes: Results discussed during this encounter [...] point in time she did go to [place] [facility] for rehab Social History Description Last Updated Caffeine use 02/08/2024 Last Documented On 4 10:05AM ; [facility] Not a current smoker. 02/08/2024 Last Documented On 4 10:05AM ; [facility] Tobacco non-user 02/08/2024 Last Documented On 4 10:05AM ; [facility] No recent change in diet 02/08/2024 Last Documented On 4 10:05AM ; [facility] Not exercising regularly 02/08/2024 Last Documented On 4 10:05AM ; [facility] Not using alcohol 02/08/2024 Last Documented On 4 10:05AM ; [facility] Not using drugs 02/08/2024 Last Documented On 4 10:05AM ; [facility] Retired from work 02/08/2024 Last Documented On 4 10:05AM ; [facility] Smoking Status Unknown Procedures and Surgical History Includes: Procedures from this encounter Procedures Code Diagnosis Performing Provider Service Location Service Date AP PELVIS w/ 1 VIEW HIP (LEFT) [address] Fx unsp part of nk of l femr, subs for clos fx w routn heal Scott Stone MD [facility] 03/07/2024 Last Documented On 4 6:16AM ; [facility] use of tobacco assessment performed 1000F Last Documented On 4 10:06AM ; [facility] patient screened for future fall risk: documentation of any fall with injury in past year 1100F Last Documented On 4 10:06AM ; [facility] review of medications documented 1160F Last Documented On 4 10:06AM ; [facility] Surgical History Last Updated History of back surgery 02/08/2024 Last Documented On 4 10:05AM ; [facility] History of heart surgery 02/08/2024 Last Documented On 4 10:05AM ; [facility] History of hysterectomy 02/08/2024 Last Documented On 4 10:05AM ; [facility] History of total hip replacement Left hi p hemiarthroplasty 02/08/24 @ [facility] 02/08/2024 Last Documented On 4 10:05AM ; [facility] Medical History Includes: Medical History addressed during this encounter Description Last Updated History of arthritis 02/08/2024 Last Documented On 4 10:05AM ; [facility] History of depression 02/08/2024 Last Documented On 4 10:05AM ; [facility] History of heart disease 02/08/2024 Last Documented On 4 10:05AM ; [facility] History of Heartburn / Acid Reflux 02/07 Last Documented On 4 10:05AM ; [facility] History of History of Blood Transfusion 02/08/2024 Last Documented On 4 10:05AM ; [facility] History of History of Cancer 02/08/2024 Last Documented On 4 10:05AM ; [facility] History of Hypertension 02/08/2024 Last Documented On 4 10:05AM ; [facility] History of Sleep Apnea 02/08/2024 Last Documented On 4 10:05AM ; [facility] Family History Includes: Family History addressed during this encounter Description Last Updated Family history of cancer 02/08/2024 Last Documented On 4 10:05AM ; [facility] Family history of heart disease 02/08/20 Last Documented On 4 10:05AM ; [facility] Family history of rheumatoid arthritis 0 02/08/2024 Last Documented On 4 10:05AM ; [facility] Family history of systemic hypertension 02/08/2024 Last Documented On 4 10:05AM ; [facility] Review of Systems Includes: Review of Systems [...] Active Last Documented On 4 10:15AM ; [facility] Ibuprofen Allergy 02/08/2024 Active Last Documented On 4 10:15AM ; [facility] Encounters Encounter Provider Location Date Check-In Time Check-Out Time Diagnosis Post Op Scott Stone MD [facility] 4 10:02AM 10:42AM Overweight Insurance Includes: Active Insurance Policies Plan Name Member ID Group # Subscriber Relationship Effect darnell Dates 1 - [employer] [id number] [place] Self Clinical Notes Includes: Clinical Notes from this encounter * Progress note Date Encounter Last Documented by 03/07/2024 Post Op Last documented on 03/26/2024; 4:23 PM, Scott Stone MD; [facility] Active Problems & Conditions - Joint Pain [...] sacrum that is gotten better pain level 10 she is able to get up and walk on it she said with no pain though she does use a walker to walk with she is at home at this point in time she did go to [place] [facility] for rehab Current Medication - [...] hip replacement Left hip hemiarthroplasty 02/08/24 @ [facility] Social History Not a current smoker. Current [...] Care Team - MUSTAPHA EASTMAN MD - REPORTING LEAD Health Reminders - Assess BMI satisfied 03/07/2024. - Assess Tobacco Use satisfied 02/08/2024.
--- OUTSIDE RECORDS SUMMARY | 2024-08-28 15:59 | XMS_ITS | Encounter Summary ---
Author Organization [employer] Address [address] [place] [address] Care Team Providers Care Route Rider Name Role Phone Unavailable Primary Care Provider Unavailabl e Encounter Details Date Type Department Care Team (Late st Contact Info) Description 12/14/2018 Transcribed Document [facility] Neurology - [address] [facility] [address] [place] [address] Francisco Herndon MD [address] [facility] [address] [place] [address] Social History Tobacco Use Types Packs/Day Years Used Date Smoking Tobacco: Never Assessed Comments Unknown Sex and Gender Information Value Date Recorded Sex Assigned at Not on file Legal Sex Female 2:04 PM CDT Gender Identity Not on file Sexual Orientation Not on file documented as of this encounter Miscellaneous Notes * Cerner Conversion Note - Francisco Herndon MD - 12/14/2018 2:05 PM EST Patient: BERNICE NAVARRETE Age: 73 Years Sex: Female : 1945 Chief Complaint back and leg pain History of Present Illness 73F initially evaluated in the office by Dr. Herndon presents to [facility] for L4-5 MIS decompression possible laminectomy. She had failed conservative treatments. no significant changes since her last visit on 11/05/18 Review of Systems Constitutional: [No fevers, chills, sweats] Eye: [No recent visual problems, eye discharge, eye pain, redness] HEENT: [No ear pain, nasal congestion, sore throat, voice changes] Respiratory: [No shortness of breath, cough, pain on breathing, sputum production] Cardiovascular: [No Chest pain, palpitations, syncope, shortness of breath while laying flat] Gastrointestinal: [No nausea, vomiting, diarrhea, constipation] Genitourinary: [No hematuria, dysuria, incontinence, lesions on genitalia] Dez/Lymph: [Negative for bruising tendency, swollen lymph glands, nosebleeds, history of anticoagulation] Musculoskeletal: [see hpi Integumentary: [No rash, pruritus, abrasions, lesions] Neurologic: see hpi Psychiatric: [No anxiety, depression, mood changes, hallucinations] Physical Exam Vitals & Measurements T: 36.1 ??C HR: 64(Monitored) RR: 20 BP: 151/50 SpO2: 97% HT: 160.02 cm WT: 76.14 kg BMI: 29.7 nad elderly pupils equal, trachea midline, edentulous nonlabored breathing no edema skin without obvious lesion 5/5 ble silt appropriate Assessment/Plan Radiculopathy, lumbar region M54.16, Radiculopathy, lumbar region M54.16 73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 Medications Inpatient Cleocin HCl, 900 mg= 50 mL, IV Piggyback, PREOP Lactated Ringers Injection intravenous solution 1,000 mL, 1000 mL, IntraVENous lidocaine 1% preservative-free injectable solution, 0.5 mL, IntraDermal, 1-Time triamcinolone acetonide 40 mg/mL injectable suspension 40 mg + ketorolac 15 mg + bupivacaine 0.25% Home acetaminophen-HYDROcodone 325 mg-5 mg oral tablet, 1 Tab, Oral, Q6H, PRN aspirin 81 mg oral tablet, 81 mg= 1 Tab, Oral, Daily ferrous sulfate 325 mg (65 mg elemental iron) oral tablet, 325 mg= 1 Tab, Oral, Daily furosemide 20 mg oral tablet, 20 mg= 1 Tab, Oral, Daily gabapentin 300 mg oral capsule, 300 mg= 1 Cap, Oral, BID hydrochlorothiazide-losartan 25 mg-100 mg oral tablet, 1 Tab, Oral, Daily Lipitor 10 mg oral tablet, 10 mg= 1 Tab, Oral, Daily omeprazole, 40 mg, Oral, Daily sertraline 100 mg oral tablet, Oral, Daily traZODone 50 mg oral tablet, 50 mg= 1 Tab, Oral, At Bedtime Vitamin B-12 1000 mcg oral tablet, 1000 mcg= 1 Tab, Oral, Daily Vitamin D3 5000 units oral capsule, 5000 Int Units= 1 Cap, Oral, Daily Allergies Keflex Social History Alcohol Alcohol Use History No. Use in Last 12 Months: No. Substance Abuse Drug Use Hx: No. Use in Last 12 Months: No. Tobacco Former smoker, quit more than 30 days ago Smoking Status. Never Smokeless Tobacco Status. Lab Results Blood Gases (Current Encounter/Past 24 Hours) No Blood Gas Results Found (Past 24 Hours) Electrolytes(BMP) Results (Current Encounter/Past 24 Hours) Sodium Level 141 mmol/L 12/14/2018 13:03 Potassium Level 3.8 mmol/L 12/14/2018 13:03 Chloride Level 108 mmol/L 12/14/2018 13:03 Carbon Dioxide Level 28 mmol/L 12/14/2018 13:03 Anion Gap 9 12/14/2018 13:03 Blood Urea Nitrogen 19 mg/dL 12/14/2018 13:03 Glucose Level 105 mg/dL 12/14/2018 13:03 Calcium Level 9.1 mg/dL 12/14/2018 13:03 Creatinine Level 1.00 mg/dL 12/14/2018 13:03 Cardiac Markers (Current Encounter/Past 24 Hours) No Cardiac Marker Results Found (Past 24 Hours) CBC Results (Current Encounter/Past 24 Hours) WBC 4.1 K/uL LOW 12/14/2018 12:38 Hct 34.7 % 12/14/2018 12:38 Hgb 12.2 g/dL 12/14/2018 12:38 Platelet Count 152 K/uL LOW 12/14/2018 12:38 CMP Results (Current Encounter/Past 24 Hours) eGFR >60 mL/min/1.73m2 12/14/2018 13:03 Creatinine Level 1.00 mg/dL 12/14/2018 13:03 Bun/Creatinine 19.0 12/14/2018 13:03 eGFR NonAfrican 54 mL/min/1.73m2 LOW 12/14/2018 13:03 Sodium Level 141 mmol/L 12/14/2018 13:03 Potassium Level 3.8 mmol/L 12/14/2018 13:03 Chloride Level 108 mmol/L 12/14/2018 13:03 Carbon Dioxide Level 28 mmol/L 12/14/2018 13:03 Anion Gap 9 12/14/2018 13:03 Blood Urea Nitrogen 19 mg/dL 12/14/2018 13:03 Glucose Level 105 mg/dL 12/14/2018 13:03 Calcium Level 9.1 mg/dL 12/14/2018 13:03 Coagulation Results (Current Encounter/Past 24 Hours) No Coagulation Results Found (Past 24 Hours) Creatinine Clearance (Current Encounter/Past 24 Hours) Creatinine Level 1.00 mg/dL 12/14/2018 13:03 Bun/Creatinine 19.0 12/14/2018 13:03 Estimated Creatinine Clearance 40.21 mL/Min 12/14/2018 13:03 documented in this encounter Plan of Treatment Not on file documented as of this encounter Visit Diagnoses Not on filedocumented in this encounter
--- OUTSIDE RECORDS SUMMARY | 2024-08-28 15:59 | XMS_ITS | Encounter Summary ---
Author Organization [employer] Address [address] [place] [address] Care Team Providers Care Cold Rolling Supervisor Name Role Phone Unavailable Primary Care Provider Unavailabl e Encounter Details Date Type Department Care Team (Late st Contact Info) Description 12/14/2018 Historic Encounter [address] [address] ProviderHayley Historical Social History Tobacco [...] Procedure Name Priority Date/Time Associated Diagnosis Comments [facility] ([facility] BK DATA CONV) Routine 12/14/2018 12:26 PM EST documented in this encounter Results * (ABNORMAL) [facility] ([facility] BKR DATA CONV) (12/14/2018 12:26 PM EST) Glucose Level 105 74 - 106 mg/dL 12/14/2018 5:59 PM EST Comment: [employer] has become aware of sulfasalazine and sulfapyridine drug interference in the assays ALT, AST, T4, CKMB, glucose, and ammonia. The probability of misinterpretation of results for the assays is remote and would be limited to scenarios where a patient has taken the drug and had a blood sample drawn before clearance of the drug to a level that does not interfere with laboratory testing. Venipuncture should occur prior to administration of the drug. Blood Urea Nitrogen 19 7 - 22 mg/dL 12/14/2018 5:59 PM EST Creatinine Level 1.00 0.55 - 1.02 mg/dL 12/14/2018 5:59 PM EST Sodium Level 141 136 - 146 mmol/L 12/14/2018 5:59 PM EST Potassium Level 3.8 3.5 - 5.1 mmol/L 12/14/2018 5:59 PM EST Chloride Level 108 102 - 112 mmol/L 12/14/2018 5:59 PM EST Carbon Dioxide Level 28 21 - 32 mmol/L 12/14/2018 5:59 PM EST Anion Gap 9 9 - 20 12/14/2018 5:59 PM EST Calcium Level 9.1 8.4 - 10.1 mg/dL 12/14/2018 5:59 PM EST Bun/Creatinine 19.0 8.0 - 20.0 12/14/2018 5:59 PM EST eGFR NonAfrican 54(L) >=60 mL/min/1. 73m2 12/14/2018 6:03 PM EST Comment: GFR <60 suggests chronic kidney disease, if found over 3 month period. GFR <15 indicates renal failure. eGFR >60 >=60 mL/min/1. 73m2 12/14/2018 6:03 PM EST Comment: GFR <60 suggests chronic kidney disease, if found over 3 month period. GFR <15 indicates renal failure. Blood 12/14/2018 12:2 6 PM EST 12/14/2018 5:32 PM EST [facility] Historical Provider LAB BLOOD ORDERABLES Fi nal Result [facility] [address] [phone] documented in this encounter Visit Diagnoses Not on filedocumented in this encounter
--- OUTSIDE RECORDS SUMMARY | 2024-08-28 15:59 | XMS_ITS | Clinical Summary ---
Author Organization [employer] Address [address] [place] [id number] Care Team Providers Care Camp Cook Name Role Phone Unavailable Primary Care Provider [...]
--- OUTSIDE RECORDS SUMMARY | 2024-08-28 15:59 | XMS_ITS | Clinical Summary ---
Author Organization [facility] Address [address] [place] [phone] Phone Care Team Providers Care Paramedic Name Role Phone RAIZA SALAZAR, MUSTAPHA ROMO Unavailable [phone] Chase SALAZAR, Scott De La Cruz Unavailable [phone] Reason for Visit and Chief Complaint [facility] Problems Includes: Problems addressed during this encounter and other active Problems All Visits Onset Date Resolved Date Provider Condition S tatus Joint Pain in the Left Hip 02/08/2024 Scott Stone MD Active Last Documented On 4 11:15AM ; [facility] Plan of Treatment No Plan of Treatment Recorded Assessments Includes: Assessments from this encounter No Assessments Recorded Medical Equipment - Implanted Devices Includes: Current Devices No Medical Equipment Recorded Medications Includes: Medications discussed during this encounter and other current Medications Current Medications (continue as prescribed) Acetaminophen 500 MG Oral Tablet 02/08/2024 Provider : Diagnosis: Last Documented On 4 1:11PM By Polly KNOX, [facility] Aplisol 5 UNIT/0.1ML Intradermal Solution 02/08/2024 Provider: Diagnosis: Last Documented On 4 1:15PM By Polly [facility], [facility] Vitamin B12 1000 MCG Oral Tablet 02/08/2024 Prov ider: Diagnosis: Last Documented On 4 1:15PM By Polly KNOX, [facility] predniSONE 5 MG Oral Tablet 02/08/2024 Provider: Diagnosis: Last Documented On 4 1:14PM By Polly BONDS, [facility] MiraLax 17 GM Oral Packet 02/08/2024 Provider: Diagnosis: Last Documented On 4 1:13PM By Polly Carvalho ; [facility] hydroCHLOROthiazide 12.5 MG Oral Tablet 02/08/2024 P rovider: Diagnosis: Last Documented On 4 1:13PM By Polly Cravalho ; [facility] CoQ-10 200 MG Oral Capsule 02/08/2024 Provider: Diagnosis: Last Documented On 4 1:12PM By Polly Carvalho ; [facility] Biotin 5000 MCG Oral Tablet 02/08/2024 Provider: Diagnosis: Last Documented On 4 1:12PM By Polly Carvalho ; [facility] Calcium Ascorbate 500 MG Oral Tablet 02/08/2024 Prov ider: Diagnosis: Last Documented On 4 1:12PM By Polly Carvalho ; [facility] Melatonin 10 MG Oral Capsule 02/08/2024 Provider : Diagnosis: Last Documented On 4 11:41AM By Ginny Feng ; [facility], [facility] Aspirin 81 MG Oral Tablet Delayed Release 02/08/2024 Provider: Diagnosis: Last Documented On 4 11:41AM By Ginny Feng ; [facility] B-Complex/Vitamin C (w/ Ca) Oral Tablet 02/08/2024 P rovider: Diagnosis: Last Documented On 4 11:42AM By Ginny Feng ; [facility], [facility] Albuterol Sulfate 2.5 MG/0.5 ML Inhalation Nebulization solution 02/08/2024 Provider: Diagnosis: Last Documented On 4 11:42AM By Ginny Feng ; [facility], [facility] oxyCODONE-Acetaminophen 5-325 MG Oral Tablet Provider: USMAN CLEVELAND MD Diagnosis: Last Documented On 4 11:26AM By Ginny Feng ; [facility] traZODone HCl 50 MG Oral Tablet 01/27/2024 Provider: USMAN CLEVELAND MD Diagnosis: Last Documented On 4 11:26AM By Ginny Feng ; [facility] Sertraline HCl 25 MG Oral Tablet 01/27/2024 Provider : USMAN CLEVELAND MD Diagnosis: Last Documented On 4 11:26AM By Ginny Feng ; [facility], [facility] Stiolto Respimat 2.5-2.5 MCG /ACT Inhalation Aerosol Solution 01/26/2024 Provider: USMAN CLEVELAND MD Diagnosis: Last Documented On 4 11:26AM By Ginny Fneg ; [facility], [facility] Losartan Potassium-HCTZ 100- 12.5 MG Oral Tablet 01/23/2024 Provider: MUSTAPHA EASTMAN MD Diagnosis: Last Documented On 4 11:26AM By Ginny Feng ; [facility], [facility] Metoprolol Succinate ER 25 M G Oral Tablet Extended Release 24 Hour 01/08/2024 Provider: MUSTAPHA WATTS MD Diagnosis: Last Documented On 4 11:26AM By Ginny Feng ; [facility], [facility] FeroSul 325 (65 Fe) MG Oral Tablet 01/08/2024 Provid er: MUSTAPHA EASTMAN MD Diagnosis: Last Documented On 4 11:26AM By Ginny Feng ; [facility], [facility] Rosuvastatin Calcium 10 MG Oral Tablet 12/12/2023 Pr ovider: Diagnosis: Last Documented On 4 11:26AM By Ginny Feng ; [facility], [facility] Omeprazole 40 MG Oral Capsule Delayed Release 07/13/20 Provider: Diagnosis: Last Documented On 4 11:40AM By Ginny Feng ; [facility], [facility] Medications Administered Includes: Administered Medications from this encounter No Administered Medications Recorded Results Includes: Results discussed during this encounter No Results Recorded For Specified Dates History of Present Illness Includes: History of Present Illness from this encounter No History of Present Illness Recorded Social History No Social History Recorded - Smoking Status Unknown Procedures and Surgical History Includes: Procedures from this encounter Procedures Code Diagnosis Performing Provider Service Location Service Date TREAT THIGH 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) 13854 Fracture of unsp part of neck of left femur, init Scott Stone MD [facility] 01/24/2024 Last Documented On 4 12:45PM ; [facility] Medical History Includes: Medical History addressed during this encounter No Medical History Recorded Family History Includes: Family History addressed during this encounter No Family History Recorded Review of Systems Includes: Review of Systems from this encounter No Review of Systems Recorded Mental Status Includes: Mental Status from this encounter No Mental Status Recorded Functional Status Includes: Functional Status from this encounter No Functional Status Recorded Physical Exam Includes: Physical Exam from this encounter No Physical Exam Recorded Allergies Includes: Active Allergies Substance Type Reaction Onset Date Resolved Date Statu s Keflex Allergy 02/08/2024 Active Last Documented On 4 10:15AM ; [facility] Ibuprofen Allergy 02/08/2024 Active Last Documented On 4 10:15AM ; [facility], [facility] Encounters Encounter Provider Location Date Check-In Time Check-Out Time Diagnosis [facility] Scott Stone MD Surgery 4 01/25/2024 12:40PM 11:59PM Insurance Includes: Active Insurance Policies Plan Name Member ID Group # Subscriber Relationship Effect darnell Dates 1 - [employer] [id number] [place] Self Clinical Notes Includes: Clinical Notes from this encounter No Clinical Notes Recorded
--- OUTSIDE RECORDS SUMMARY | 2024-08-28 15:59 | XMS_ITS ---
Care Plan - [facility], [facility] Created on: August 28, 2024 [place] : 1945 Sex: Female Author Organization [facility], [facility] Address [address] [place] [phone] Phone Care Team Providers Care Inpatient Services Rn Name Role Phone RAIZA SALAZAR, MUSTAPHA ROMO Unavailable [phone] Chase SALAZAR, Scott De La Cruz Unavailable [phone]
--- OUTSIDE RECORDS SUMMARY | 2024-08-28 15:59 | XMS_ITS | Encounter Summary ---
Author Organization [employer] Address [address] [place] [address] Care Team Providers Care Vp Security Name Role Phone Unavailable Primary Care Provider Unavailabl e Encounter Details Date Type Department Care Team (Late st Contact Info) Description 12/14/2018 Historic Encounter [address] [phone] ProviderHayley Historical Social History Tobacco [...] Procedure Name Priority Date/Time Associated Diagnosis Comments CBC (HEMOGRAM ONLY) Routine 12/14/2018 1 2:26 PM EST documented in this encounter Results * (ABNORMAL) CBC (Hemogram only) (12/14/2018 12:26 PM EST) WBC 4.1(L) 4.5 - 10.5 K/uL 12/14/2018 5:35 PM EST RBC 3.96 3.93 - 5.22 Million/uL 12/14/2018 5:35 PM EST Hgb 12.2 11.2 - 15.7 g/dL 12/14/2018 5:35 PM EST Hct 34.7 34.1 - 44.9 % 12/14/2018 5:35 PM EST MCV 87.6 79.0 - 94.8 fL 12/14/2018 5:35 PM EST MCH 30.8 25.6 - 32.2 pg 12/14/2018 5:35 PM EST MCHC 35.2 32.2 - 36.5 Gram/dL 12/14/2018 5:35 PM EST RDW 12.6 11.7 - 14.9 % 12/14/2018 5:35 PM EST Platelet Count 152(L) 163 - 369 K/uL 12/14/2018 5:35 PM EST MPV 9.5 9.4 - 12.4 fL 12/14/2018 5:35 PM EST Slide Review No 12/14/2018 5:38 PM EST Blood 12/14/2018 12:2 6 PM EST 12/14/2018 5:32 PM EST [facility] Historical Provider LAB BLOOD ORDERABLES Fi nal Result [facility] [address] [phone] documented in this encounter Visit Diagnoses Not on filedocumented in this encounter
--- OUTSIDE RECORDS SUMMARY | 2024-08-28 15:59 | XMS_ITS | Clinical Summary ---
Author Organization [facility] , [facility] Address [address] [place] [phone] Phone Care Team Providers Care Luster Repairer Name Role Phone RAIZA SALAZAR, MUSTAPHA ROMO Unavailable [phone] Chase SALAZAR, Scott De La Cruz Unavailable [phone] Reason for Visit and Chief Complaint [facility] Problems Includes: Problems addressed during this encounter and other active Problems All Visits Onset Date Resolved Date Provider Condition S tatus Joint Pain in the Left Hip 02/08/2024 Scott Stone MD Active Last Documented On 4 11:15AM ; [facility], [facility] Plan of Treatment No Plan of Treatment Recorded Assessments Includes: Assessments from this encounter No Assessments Recorded Medical Equipment - Implanted Devices Includes: Current Devices No Medical Equipment Recorded Medications Includes: Medications discussed during this encounter and other current Medications Current Medications (continue as prescribed) Acetaminophen 500 MG Oral Tablet 02/08/2024 Provider : Diagnosis: Last Documented On 4 1:11PM By Polly KNOX, [facility] Aplisol 5 UNIT/0.1ML Intradermal Solution 02/08/2024 Provider: Diagnosis: Last Documented On 4 1:15PM By Polly [facility], [facility] Vitamin B12 1000 MCG Oral Tablet 02/08/2024 Prov ider: Diagnosis: Last Documented On 4 1:15PM By Polly KNOX, [facility] predniSONE 5 MG Oral Tablet 02/08/2024 Provider: Diagnosis: Last Documented On 4 1:14PM By Polly BONDS, [facility] MiraLax 17 GM Oral Packet 02/08/2024 Provider: Diagnosis: Last Documented On 4 1:13PM By Polly Carvalho ; [facility] hydroCHLOROthiazide 12.5 MG Oral Tablet 02/08/2024 P rovider: Diagnosis: Last Documented On 4 1:13PM By Polly Carvalho ; [facility] CoQ-10 200 MG Oral Capsule 02/08/2024 Provider: Diagnosis: Last Documented On 4 1:12PM By Polly Carvalho ; [facility] Biotin 5000 MCG Oral Tablet 02/08/2024 Provider: Diagnosis: Last Documented On 4 1:12PM By Polly Carvalho ; [facility] Calcium Ascorbate 500 MG Oral Tablet 02/08/2024 Prov ider: Diagnosis: Last Documented On 4 1:12PM By Polly Carvalho ; [facility] Melatonin 10 MG Oral Capsule 02/08/2024 Provider : Diagnosis: Last Documented On 4 11:41AM By Ginny Feng ; [facility], [facility] Aspirin 81 MG Oral Tablet Delayed Release 02/08/2024 Provider: Diagnosis: Last Documented On 4 11:41AM By Ginny Feng ; [facility] B-Complex/Vitamin C (w/ Ca) Oral Tablet 02/08/2024 P rovider: Diagnosis: Last Documented On 4 11:42AM By Ginny Feng ; [facility], [facility] Albuterol Sulfate 2.5 MG/0.5 ML Inhalation Nebulization solution 02/08/2024 Provider: Diagnosis: Last Documented On 4 11:42AM By Ginny Feng ; [facility], [facility] oxyCODONE-Acetaminophen 5-325 MG Oral Tablet Provider: USMAN CLEVELAND MD Diagnosis: Last Documented On 4 11:26AM By Ginny Feng ; [facility] traZODone HCl 50 MG Oral Tablet 01/27/2024 Provider: USMAN CLEVELAND MD Diagnosis: Last Documented On 4 11:26AM By Ginny Feng ; [facility] Sertraline HCl 25 MG Oral Tablet 01/27/2024 Provider : USMAN CLEVELAND MD Diagnosis: Last Documented On 4 11:26AM By Ginny Feng ; [facility], [facility] Stiolto Respimat 2.5-2.5 MCG /ACT Inhalation Aerosol Solution 01/26/2024 Provider: USMAN CLEVELAND MD Diagnosis: Last Documented On 4 11:26AM By Ginny Feng ; [facility], [facility] Losartan Potassium-HCTZ 100- 12.5 MG Oral Tablet 01/23/2024 Provider: MUSTAPHA EASTMAN MD Diagnosis: Last Documented On 4 11:26AM By Ginny Feng ; [facility], [facility] Metoprolol Succinate ER 25 M G Oral Tablet Extended Release 24 Hour 01/08/2024 Provider: MUSTAPHA WATTS MD Diagnosis: Last Documented On 4 11:26AM By Ginny Feng ; [facility], [facility] FeroSul 325 (65 Fe) MG Oral Tablet 01/08/2024 Provid er: MUSTAPHA EASTMAN MD Diagnosis: Last Documented On 4 11:26AM By Ginny Feng ; [facility], [facility] Rosuvastatin Calcium 10 MG Oral Tablet 12/12/2023 Pr ovider: Diagnosis: Last Documented On 4 11:26AM By Ginny Feng ; [facility], [facility] Omeprazole 40 MG Oral Capsule Delayed Release 07/13/20 Provider: Diagnosis: Last Documented On 4 11:40AM By Ginny Feng ; [facility], [facility] Medications Administered Includes: Administered Medications from this encounter No Administered Medications Recorded Results Includes: Results discussed during this encounter No Results Recorded For Specified Dates History of Present Illness Includes: History of Present Illness from this encounter No History of Present Illness Recorded Social History No Social History Recorded - Smoking Status Unknown Medical History Includes: Medical History addressed during [...] Active Last Documented On 4 10:15AM ; [facility] Ibuprofen Allergy 02/08/2024 Active Last Documented On 4 10:15AM ; [facility] Encounters Encounter Provider Location Date Check-In Time Check-Out Time Diagnosis [facility] Scott Stone MD Surgery 4 01/25/2024 12:41PM 11:59PM Insurance Includes: Active Insurance Policies Plan Name Member ID Group # Subscriber Relationship Effect darnell Dates 1 - [employer] [id number] [place] Self Clinical Notes Includes: Clinical Notes from this encounter No Clinical Notes Recorded
--- OUTSIDE RECORDS SUMMARY | 2024-08-28 15:59 | XMS_ITS | Encounter Summary ---
Author Organization [employer] Address [address] [place] [id number] Care Team Providers Care Cabinetmaker Supervisor Name Role Phone Unavailable Primary Care Provider Unavailabl e Encounter Details Date Type Department Care Team (Late st Contact Info) Description 12/14/2018 Transcribed Document [facility] Family Medicine Formerly [facility] [place] [address] ProviderHelen MD [address] [place] [id number] Social History Tobacco Use Types Packs/Day Years Used Date Smoking Tobacco: Never Assessed Comments Unknown Sex and Gender Information Value Date Recorded Sex Assigned at Not on file Legal Sex Female 2:04 PM CDT Gender Identity Not on file Sexual Orientation Not on file documented as of this encounter Miscellaneous Notes * Cerner Conversion Note - Helen ProviderMD - 12/14/2018 5:54 PM 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 [address] [address] Patient Copy Patient Information: Name: BERNICE NAVARRETE Current Date: 12/14/2018 17:54:53 : 1945 Patient Address: [address] [place], [place] [id number] Patient Attending Physician: ASHOK CHENG MD-[facility] Primary Care Provider: MUSTAPHA EASTMAN MD-[facility] Primary Care Provider Discharge Diagnosis: Weight on Admission: 167 lb, 8 oz Comment: Discharge Instructions: Immunizations Documented During Stay: No Immunizations Found Heart Failure Discharge Instructions (if any): Stroke Related Discharge Instructions (if any): Warfarin Related Discharge Instructions (if any): Final Medication List: Other Medications acetaminophen-hydrocodone (acetaminophen-HYDROcodone 325 mg-5 mg oral tablet) 1 Tablet(s) Oral Every 6 Hours as needed for pain. aspirin (aspirin 81 mg oral tablet) 1 Tablet(s) Oral Every Day. atorvastatin (Lipitor 10 mg oral tablet) 1 Tablet(s) Oral Every Day. cholecalciferol (Vitamin D3 5000 units oral capsule) 1 Capsule(s) Oral Every Day. with food. cyanocobalamin (Vitamin B-12 1000 mcg oral tablet) 1 Tablet(s) Oral Every Day. ferrous sulfate (ferrous sulfate 325 mg (65 mg elemental iron) oral tablet) 1 Tablet(s) Oral Every Day. furosemide (furosemide 20 mg oral tablet) 1 Tablet(s) Oral Every Day. gabapentin (gabapentin 300 mg oral capsule) 1 Capsule(s) Oral Two Times A Day. hydrochlorothiazide-losartan (hydrochlorothiazide-losartan 25 mg-100 mg oral tablet) 1 Tablet(s) Oral Every Day. omeprazole 40 Milligram(s) Oral Every Day. sertraline (sertraline 100 mg oral tablet) Oral Every Day. traZODone (traZODone 50 mg oral tablet) 1 Tablet(s) Oral At Bedtime. Patient Allergies: Keflex Medication Instructions: Take your medications faithfully. Do NOT skip medication. Do NOT stop taking medications without the direction of a physician. Carry a list of your medications with you at all times, and take this medication list with you to your first follow up visit. Report any side effects. Avoid herbal remedies unless discussed with your physician. As part of your treatment plan, your physician may have prescribed a limited course of a controlled substance. This medication may be given to help people with moderate or severe pain or for other medical conditions, but there are risks involved with treatment. Common side effects may include nausea, constipation, drowsiness, sweating, itching, dry mouth, and rash. More serious side effects may include cognitive and motor impairment, like problems with thinking, concentrating, alertness, and movement (e.g. slowed reflexes), and driving and operating heavy machinery can be dangerous. It is important for you to talk to your physician if you have these side effects or questions. These controlled substances can produce physical dependence and be habit-forming if taken for an extended period of time, which means that the body has gotten used to them and may experience withdrawal symptoms if they are abruptly stopped. Withdrawal symptoms can include runny nose, sweating, goose bumps, diarrhea, abdominal cramping, rapid heartbeat, difficulty sleeping, and nervousness. Patient education materials: Laminectomy, Care After This sheet gives you information about how to care for yourself after your procedure. Your health care provider may also give you more specific instructions. If you have problems or questions, contact your health care provider. What can I expect after the procedure? After the procedure, it is common to have: ??? Some pain around your incision area. ??? Muscle tightening (spasms) across the back. Follow these instructions at home: Incision care ??? Follow instructions from your health care provider about how to take care of your incision area. Make sure you: ? Wash your hands with soap and water before and after you apply medicine to the area or change your bandage (dressing). If soap and water are not available, use hand vascular manager. ? Change your dressing as told by your health care provider. ? Leave stitches (sutures), skin glue, or adhesive strips in place. These skin closures may need to stay in place for 2 weeks or longer. If adhesive strip edges start to loosen and curl up, you may trim the loose edges. Do not remove adhesive strips completely unless your health care provider tells you to do that. ??? Check your incision area every day for signs of infection. Check for: ? More redness, swelling, or pain. ? More fluid or blood. ? Warmth. ? Pus or a bad smell. Medicines ??? Take ctzv-yxc-pteeypx and prescription medicines only as told by your health care provider. ??? If you were prescribed an antibiotic medicine, use it as told by your health care provider. Do not stop using the antibiotic even if you start to feel better. Bathing ??? Do nottake baths, swim, or use a hot tub for 2 weeks, or until your incision has healed completely. ??? If your health care provider approves, you may take showers after your dressing has been removed. Activity ??? Return to your normal activities as told by your health care provider. Ask your health care provider what activities are safe for you. ??? Avoid bending or twisting at your waist. Always bend at your knees. ??? Do notsit for more than 20?30 minutes at a time. Lie down or walk between periods of sitting. ??? Do notlift anything that is heavier than 10 lb (4.5 kg) or the limit that your health care provider tells you, until he or she says that it is safe. ??? Do notdrive for 2 weeks after your procedure or for as long as your health care provider tells you. ??? Do not drive or use heavy machinery while taking prescription pain medicine. General instructions ??? To prevent or treat constipation while you are taking prescription pain medicine, your health care provider may recommend that you: ? Drink enough fluid to keep your urine clear or pale yellow. ? Take cnyh-kgv-vcdldwj or prescription medicines. ? Eat foods that are high in fiber, such as fresh fruits and vegetables, whole grains, and beans. ? Limit foods that are high in fat and processed sugars, such as fried and sweet foods. ??? Do breathing exercises as told. ??? Keep all follow-up visits as told by your health care provider. This is important. Contact a health care provider if: ??? You have more redness, swelling, or pain around your incision area. ??? Your incision feels warm to the touch. ??? You are not able to return to activities or do exercises as told by your health care provider. Get help right away if: ??? You have: ? More fluid or blood coming from your incision area. ? Pus or a bad smell coming from your incision area. ? Chills or a fever. ? Episodes of dizziness or fainting while standing. ??? You develop a rash. ??? You develop shortness of breath or you have difficulty breathing. ??? You cannot control when you urinate or have a bowel movement. ??? You become weak. ??? You are not able to use your legs. Summary ??? After the procedure, it is common to have some pain around your incision area. You may also have muscle tightening (spasms) across the back. ??? Follow instructions from your health care provider about how to care for your incision. ??? Do not lift anything that is heavier than 10 lb (4.5 kg) or the limit that your health care provider tells you, until he or she says that it is safe. ??? Contact your health care provider if you have more redness, swelling, or pain around your incision area or if your incision feels warm to the touch. These can be signs of infection. This information is not intended to replace advice given to you by your health care provider. Make sure you discuss any questions you have with your health care provider. Document Released: 04/21/2006 Document Revised: 05/18/2017 Document Reviewed: 03/19/2017 [employer] Patient Education ? 2017 [employer]. General Anesthesia, Adult, Care After These instructions provide you with information about caring for yourself after your procedure. Your health care provider may also give you more specific instructions. Your treatment has been planned according to current medical practices, but problems sometimes occur. Call your health care provider if you have any problems or questions after your procedure. What can I expect after the procedure? After the procedure, it is common to have: ??? Vomiting. ??? A sore throat. ??? Mental slowness. It is common to feel: ??? Nauseous. ??? Cold or shivery. ??? Sleepy. ??? Tired. ??? Sore or achy, even in parts of your body where you did not have surgery. Follow these instructions at home: For at least 24 hours after the procedure:??? Do not: ? Participate in activities where you could fall or become injured. ? Drive. ? Use heavy machinery. ? Drink alcohol. ? Take sleeping pills or medicines that cause drowsiness. ? Make important decisions or sign legal documents. ? Take care of children on your own. ??? Rest. Eating and drinking ??? If you vomit, drink water, juice, or soup when you can drink without vomiting. ??? Drink enough fluid to keep your urine clear or pale yellow. ??? Make sure you have little or no nausea before eating solid foods. ??? Follow the diet recommended by your health care provider. General instructions ??? Have a responsible adult stay with you until you are awake and alert. ??? Return to your normal activities as told by your health care provider. Ask your health care provider what activities are safe for you. ??? Take lygy-oho-yvlomke and prescription medicines only as told by your health care provider. ??? If you smoke, do not smoke without supervision. ??? Keep all follow-up visits as told by your health care provider. This is important. Contact a health care provider if: ??? You continue to have nausea or vomiting at home, and medicines are not helpful. ??? You cannot drink fluids or start eating again. ??? You cannot urinate after 8?12 hours. ??? You develop a skin rash. ??? You have fever. ??? You have increasing redness at the site of your procedure. Get help right away if: ??? You have difficulty breathing. ??? You have chest pain. ??? You have unexpected bleeding. ??? You feel that you are having a life-threatening or urgent problem. This information is not intended to replace advice given to you by your health care provider. Make sure you discuss any questions you have with your health care provider. Document Released: 01/08/2002 Document Revised: 03/06/2017 Document Reviewed: 09/15/2016 [employer] Patient Education ? 2017 [employer]. Medication Leaflets: acetaminophen and hydrocodone (a SEET a MIN oh fen and long droe KOE done) Hycet, Lorcet, Naoma, Verdrocet, Vicodin, Xodol, Zamicet What is the most important information I should know about acetaminophen and hydrocodone? MISUSE OF OPIOID MEDICINE CAN CAUSE ADDICTION, OVERDOSE, OR . Keep the medication in a place where others cannot get to it. An overdose of acetaminophen can damage your liver or cause . Call your doctor at once if you have pain in your upper stomach, loss of appetite, dark urine, or jaundice (yellowing of your skin or eyes). Taking opioid medicine during may cause life-threatening withdrawal symptoms in the . Fatal side effects can occur if you use opioid medicine with alcohol, or with other drugs that cause drowsiness or slow your breathing. Stop taking this medicine and call your doctor right away if you have skin redness or a rash that spreads and causes blistering and peeling. What is acetaminophen and hydrocodone? Hydrocodone is an opioid pain medication, sometimes called a narcotic. Acetaminophen is a less potent pain reliever that increases the effects of hydrocodone. Acetaminophen and hydrocodone is a combination medicine used to relieve moderate to severe pain. Acetaminophen and hydrocodone may also be used for purposes not listed in this medication guide. What should I discuss with my healthcare provider before taking acetaminophen and hydrocodone? You should not use this medicine if you are allergic to acetaminophen or hydrocodone, or if you have: ? severe asthma or breathing problems; or ?? a blockage in your stomach or intestines. Tell your doctor if you have ever had: ? liver disease; ?? a drug or alcohol addiction; ?? kidney disease; ?? a head injury or seizures; ?? urination problems; or ?? problems with your thyroid, pancreas, or gallbladder. If you use opioid medicine while you are , your baby could become dependent on the drug. This can cause life-threatening withdrawal symptoms in the baby after it is born. Babies born dependent on opioids may need medical treatment for several weeks. Do not breast-feed. This medicine can pass into breast milk and cause drowsiness, breathing problems, or in a nursing baby. How should I take acetaminophen and hydrocodone? Follow all directions on your prescription label. Never take this medicine in larger amounts, or for longer than prescribed. An overdose can damage your liver or cause . Tell your doctor if the medicine seems to stop working as well in relieving your pain. Always check your bottle to make sure you have received the correct pills (same brand and type) of medicine prescribed by your doctor. Never share this medicine with another person, especially someone with a history of drug abuse or addiction. MISUSE CAN CAUSE ADDICTION, OVERDOSE, OR . Keep the medicine in a place where others cannot get to it. Selling or giving away acetaminophen and hydrocodone is against the law. Measure liquid medicine carefully. Use the dosing syringe provided, or use a medicine dose-measuring device (not a kitchen spoon). If you need surgery or medical tests, tell the doctor ahead of time that you are using this medicine. You should not stop using this medicine suddenly. Follow your doctor's instructions about tapering your dose. Store at room temperature away from moisture and heat. Keep track of your medicine. You should be aware if anyone is using it improperly or without a prescription. Do not keep leftover opioid medication. Just one dose can cause in someone using this medicine accidentally or improperly. Ask your pharmacist where to locate a drug take-back disposal program. If there is no take-back program, flush the unused medicine down the toilet. What happens if I miss a dose? Since this medicine is used for pain, you are not likely to miss a dose. Skip any missed dose if it is almost time for your next dose. Do not use two doses at one time. What happens if I overdose? Seek emergency medical attention or call the Poison Help line at . An overdose of acetaminophen and hydrocodone can be fatal. The first signs of an acetaminophen overdose include loss of appetite, nausea, vomiting, stomach pain, sweating, and confusion or weakness. Later symptoms may include pain in your upper stomach, dark urine, and yellowing of your skin or the whites of your eyes. Overdose can also cause severe muscle weakness, pinpoint pupils, very slow breathing, extreme drowsiness, or coma. What should I avoid while taking acetaminophen and hydrocodone? Avoid driving or operating machinery until you know how this medicine will affect you. Dizziness or drowsiness can cause falls, accidents, or severe injuries. Do not drink alcohol. Dangerous side effects or could occur. Ask a doctor or pharmacist before using any other medicine that may contain acetaminophen (sometimes abbreviated as APAP). Taking certain medications together can lead to a fatal overdose. What are the possible side effects of acetaminophen and hydrocodone? Get emergency medical help if you have signs of an allergic reaction: hives; difficulty breathing; swelling of your face, lips, tongue, or throat. Opioid medicine can slow or stop your breathing, and may occur. A person caring for you should seek emergency medical attention if you have slow breathing with long pauses, blue colored lips, or if you are hard to wake up. In rare cases, acetaminophen may cause a severe skin reaction that can be fatal. This could occur even if you have taken acetaminophen in the past and had no reaction. Stop taking this medicine and call your doctor right away if you have skin redness or a rash that spreads and causes blistering and peeling. Call your doctor at once if you have: ? noisy breathing, sighing, shallow breathing; ?? a light-headed feeling, like you might pass out; ?? liver problems--nausea, upper stomach pain, tiredness, loss of appetite, dark urine, beto-colored stools, jaundice (yellowing of the skin or eyes); or ?? low cortisol levels-- nausea, vomiting, loss of appetite, dizziness, worsening tiredness or weakness. Seek medical attention right away if you have symptoms of serotonin syndrome, such as: agitation, hallucinations, fever, sweating, shivering, fast heart rate, muscle stiffness, twitching, loss of coordination, nausea, vomiting, or diarrhea. Serious side effects may be more likely in older adults and those who are overweight, malnourished, or debilitated. Long-term use of opioid medication may affect fertility (ability to have children) in men or women. It is not known whether opioid effects on fertility are permanent. Common side effects include: ? dizziness, drowsiness, feeling tired; ?? nausea, vomiting, stomach pain; ?? constipation; or ?? headache. This is not a complete list of side effects and others may occur. Call your doctor for medical advice about side effects. You may report side effects to FDA at 8-315-BJG-7261. What other drugs will affect acetaminophen and hydrocodone? You may have breathing problems or withdrawal symptoms if you start or stop taking certain other medicines. Tell your doctor if you also use an antibiotic, antifungal medication, heart or blood pressure medication, seizure medication, or medicine to treat HIV or hepatitis C. Opioid medication can interact with many other drugs and cause dangerous side effects or . Be sure your doctor knows if you also use: ? cold or allergy medicines, bronchodilator asthma/COPD medication, or a diuretic ('water pill'); ?? medicines for motion sickness, irritable bowel syndrome, or overactive bladder; ?? other narcotic medications--opioid pain medicine or prescription cough medicine; ?? a sedative like Valium--diazepam, alprazolam, lorazepam, Xanax, Klonopin, Versed, and others; ?? drugs that make you sleepy or slow your breathing--a sleeping pill, muscle relaxer, medicine to treat mood disorders or mental illness; ?? drugs that affect serotonin levels in your body--a stimulant, or medicine for depression, Parkinson's disease, migraine headaches, serious infections, or nausea and vomiting. This list is not complete. Other drugs may affect acetaminophen and hydrocodone, including prescription and gzhs-rvd-fanymmy medicines, vitamins, and herbal products. Not all possible interactions are listed here. Where can I get more information? Your doctor or pharmacist can provide more information about acetaminophen and hydrocodone. Remember, keep this and all other medicines out of the reach of children, never share your medicines with others, and use this medication only for the indication prescribed. Every effort has been made to ensure that the information provided by [employer] is accurate, up-to-date, and complete, but no guarantee is made to that effect. Drug information contained herein may be time sensitive. [employer] information has been compiled for use by healthcare practitioners and consumers in the [place] and therefore [employer] does not warrant that uses outside of the [place] are appropriate, unless specifically indicated otherwise. [employer]'s drug information does not endorse drugs, diagnose patients or recommend therapy. [facility] drug information is an informational resource designed to assist licensed healthcare practitioners in caring for their patients and/or to serve consumers viewing this service as a supplement to, and not a substitute for, the expertise, skill, knowledge and judgment of healthcare practitioners. The absence of a warning for a given drug or drug combination in no way should be construed to indicate that the drug or drug combination is safe, effective or appropriate for any given patient. [employer] does not assume any responsibility for any aspect of healthcare administered with the aid of information [employer] provides. The information contained herein is not intended to cover all possible uses, directions, precautions, warnings, drug interactions, allergic reactions, or adverse effects. If you have questions about the drugs you are taking, check with your doctor, nurse or pharmacist. Copyright 8385-9605 [employer] Version: 15.02. Revision Date: 08/20/2018. cyclobenzaprine (benedicto henriquez) Ladariusix, Comfort Pac with Cyclobenzaprine, Fexmid What is the most important information I should know about cyclobenzaprine? You should not use cyclobenzaprine if you have a thyroid disorder, heart block, congestive heart failure, a heart rhythm disorder, or you have recently had a heart attack. Do not use cyclobenzaprine if you have taken an MAO inhibitor in the past 14 days, such as isocarboxazid, linezolid, phenelzine, rasagiline, selegiline, or tranylcypromine. What is cyclobenzaprine? Cyclobenzaprine is a muscle relaxant. It works by blocking nerve impulses (or pain sensations) that are sent to your brain. Cyclobenzaprine is used together with rest and physical therapy to relieve muscle spasms caused by painful conditions such as an injury. Cyclobenzaprine may also be used for purposes not listed in this medication guide. What should I discuss with my healthcare provider before taking cyclobenzaprine? You should not use cyclobenzaprine if you are allergic to it, or if you have: ? a thyroid disorder; ?? heart block, heart rhythm disorder, congestive heart failure; or ?? if you have recently had a heart attack. Cyclobenzaprine is not approved for use by anyone younger than 15 years old. Do not use cyclobenzaprine if you have taken an MAO inhibitor in the past 14 days. A dangerous drug interaction could occur. MAO inhibitors include isocarboxazid, linezolid, phenelzine, rasagiline, selegiline, and tranylcypromine. Some medicines can interact with cyclobenzaprine and cause a serious condition called serotonin syndrome. Be sure your doctor knows if you also take stimulant medicine, opioid medicine, herbal products, or medicine for depression, mental illness, Parkinson's disease, migraine headaches, serious infections, or prevention of nausea and vomiting. Ask your doctor before making any changes in how or when you take your medications. Tell your doctor if you have ever had: ? liver disease; ?? glaucoma; ?? enlarged prostate; or ?? problems with urination. It is not known whether this medicine will harm an unborn baby. Tell your doctor if you are or plan to become . It may not be safe to breast-feed while using this medicine. Ask your doctor about any risk. Older adults may be more sensitive to the effects of this medicine. How should I take cyclobenzaprine? Follow all directions on your prescription label and read all medication guides or instruction sheets. Your doctor may occasionally change your dose. Use the medicine exactly as directed. Cyclobenzaprine is usually taken once daily for only 2 or 3 weeks. Follow your doctor's dosing instructions very carefully. Swallow the capsule whole and do not crush, chew, break, or open it. Take the medicine at the same time each day. Call your doctor if your symptoms do not improve after 3 weeks, or if they get worse. Store at room temperature away from moisture, heat, and light. What happens if I miss a dose? Take the medicine as soon as you can, but skip the missed dose if it is almost time for your next dose. Do not take two doses at one time. What happens if I overdose? Seek emergency medical attention or call the Poison Help line at . An overdose of cyclobenzaprine can be fatal. Overdose symptoms may include severe drowsiness, vomiting, fast heartbeats, tremors, agitation, or hallucinations. What should I avoid while taking cyclobenzaprine? Avoid driving or hazardous activity until you know how this medicine will affect you. Your reactions could be impaired. Avoid drinking alcohol. Dangerous side effects could occur. What are the possible side effects of cyclobenzaprine? Get emergency medical help if you have signs of an allergic reaction: hives; difficult breathing; swelling of your face, lips, tongue, or throat. Stop using cyclobenzaprine and call your doctor at once if you have: ? fast or irregular heartbeats; ?? chest pain or pressure, pain spreading to your jaw or shoulder; or ?? sudden numbness or weakness (especially on one side of the body), slurred speech, balance problems. Seek medical attention right away if you have symptoms of serotonin syndrome, such as: agitation, hallucinations, fever, sweating, shivering, fast heart rate, muscle stiffness, twitching, loss of coordination, nausea, vomiting, or diarrhea. Serious side effects may be more likely in older adults. Common side effects may include: ? drowsiness, tiredness; ?? headache, dizziness; ?? dry mouth; or ?? upset stomach, nausea, constipation. This is not a complete list of side effects and others may occur. Call your doctor for medical advice about side effects. You may report side effects to FDA at 8-018-EMS-2026. What other drugs will affect cyclobenzaprine? Using cyclobenzaprine with other drugs that make you drowsy can worsen this effect. Ask your doctor before using opioid medication, a sleeping pill, a muscle relaxer, or medicine for anxiety or seizures. Tell your doctor about all your other medicines, especially: ? bupropion (Zyban, for smoking cessation); ?? meperidine; ?? tramadol; ?? verapamil; ?? cold or allergy medicine that contains an antihistamine (Benadryl and others); ?? medicine to treat Parkinson's disease; ?? medicine to treat excess stomach acid, stomach ulcer, motion sickness, or irritable bowel syndrome; ?? medicine to treat overactive bladder; or ?? bronchodilator asthma medication. This list is not complete. Other drugs may affect cyclobenzaprine, including prescription and [id number]-tzz-[id number] medicines, vitamins, and herbal products. Not all possible drug interactions are listed here. Where can I get more information? Your pharmacist can provide more information about cyclobenzaprine. Remember, keep this and all other medicines out of the reach of children, never share your medicines with others, and use this medication only for the indication prescribed. Every effort has been made to ensure that the information provided by [employer] ('[employer]') is accurate, up-to-date, and complete, but no guarantee is made to that effect. Drug information contained herein may be time sensitive. [employer] information has been compiled for use by healthcare practitioners and consumers in the [place] and therefore [employer] does not warrant that uses outside of the [place] are appropriate, unless specifically indicated otherwise. [facility] drug information does not endorse drugs, diagnose patients or recommend therapy. [facility] drug information is an informational resource designed to assist licensed healthcare practitioners in caring for their patients and/or to serve consumers viewing this service as a supplement to, and not a substitute for, the expertise, skill, knowledge and judgment of healthcare practitioners. The absence of a warning for a given drug or drug combination in no way should be construed to indicate that the drug or drug combination is safe, effective or appropriate for any given patient. [employer] does not assume any responsibility for any aspect of healthcare administered with the aid of information [employer] provides. The information contained herein is not intended to cover all possible uses, directions, precautions, warnings, drug interactions, allergic reactions, or adverse effects. If you have questions about the drugs you are taking, check with your doctor, nurse or pharmacist. Copyright 8631-4711 [employer] Version: 5.01. Revision Date: 07/11/2018. CIGARETTE SMOKING: The facts are clear, cigarette smoking will shorten your life. Smoking can cause many illnesses along the way. As a healthcare provider, we recommend that you stop smoking. Assistance with quitting is available by contacting 1-364-NIZGNOW. This is a free resource providing counseling, support, and referral. Or you may contact your personal physician. 4 WAYS TO GET AHEAD OF SEPSIS SEPSIS is a MEDICAL EMERGENCY. Time matters! Infections put you and your family at risk for a life-threatening condition called sepsis. Sepsis is the body???s extreme response to an infection. It is life-threatening, and without timely treatment, sepsis can rapidly lead to tissue damage, organ failure, and . Sepsis happens when an infection you already have???in your skin, lungs, urinary tract or somewhere else???triggers a chain reaction throughout your body. 1 PREVENT INFECTIONS Take good care of chronic conditions. Talk to your doctor about getting the recommended vaccines. 2 PRACTICE GOOD HYGIENE Wash your hands frequently. Keep cuts or open sores clean and covered until they are healed. 3 KNOW THE SYMPTOMS Confusion or disorientation Shortness of breath High heart rate Fever, shivering, or feeling very cold Extreme pain or discomfort Clammy or sweaty skin 4 ACT FAST Get medical care IMMEDIATELY if you suspect sepsis or if you have an infection that???s not getting better or is getting worse. To learn more about sepsis and how to prevent infections, visit www.cdc.gov/sepsis. STROKE is an EMERGENCY [employer] ACT F.A.S.T! FACE ?? Facial droop ?? Uneven smile ARM ?? Arm numbness ?? Arm weakness SPEECH ?? Slurred speech ?? Difficulty speaking or understanding TIME ?? Call 911 and get to the hospital immediately Have the ambulance go to the nearest stroke center. STROKE Risk Factors High blood pressure High cholesterol Heart Disease Diabetes Smoking Heavy alcohol use Physical inactivity and obesity Atrial Fibrillation (irregular heartbeat) Family history of stroke Reminder: Be sure to sign up for the [employer] patient portal, which gives you 08/05 access to your medical information ??? including these discharge instructions ??? using your computer, smartphone, or tablet. Just go to [employer] to get started. Questions? Call . [facility] would like to thank you for allowing us to assist you with your healthcare needs. ROSALBA Parker CATHERINE M, (or textile machinery sales representative) have received the above patient education materials/instructions and have verbalized understanding: Patient Signature _ Date/Time Patient Public Information Specialist Signature (if needed) Date/Time Clinician/Hospital Public Information Specialist Signature (if needed) Date/Time Electronically signed by Michelet, [facility] Conversion Stringed Instrument Tuner Sohailner at 02/02/2023 12:29 PM CDT documented in this encounter Plan of Treatment Not on file documented as of this encounter Visit Diagnoses Not on filedocumented in this encounter
--- OUTSIDE RECORDS SUMMARY | 2024-08-28 15:59 | XMS_ITS | Clinical Summary ---
Author Organization [facility] Address [address] [place] [phone] Phone Care Team Providers Care Industrial Mechanic Name Role Phone RAIZA SALAZAR, MUSTAPHA ROMO Unavailable [phone] Chase SALAZAR, Scott De La Cruz Unavailable [phone] Reason for Visit and Chief Complaint The Chief Complaint is: left hip Problems Includes: Problems addressed during this encounter and other active Problems Current Visit Onset Date Resolved Date Provider Rosana mejia Status Joint Pain in the Left Hip 02/08/2024 Scott Stone MD Active Last Documented On 4 11:15AM ; [facility], [facility] Plan of Treatment - Patient screened for future fall risk: documentation of any fall with injury in past year - Last Documented On 03/06/2024 2:00PM ; [facility] Fall Risk Assessment: This patient has been [...] with the patient. - Last Documented On 03/06/2024 2:00PM ; [facility] Instructions to patient Lose weight Last Documented On 4 11:27AM ; [facility] Assessments Includes: Assessments from this encounter Findings - Overweight - Last Documented On 03/06/2024 2:00PM ; [facility] Instructions Includes: Instructions from this encounter Instructions to patient Lose weight Last Documented On 4 11:27AM ; [facility] Medical Equipment - Implanted Devices Includes: Current Devices No Medical Equipment Recorded Medications Includes: Medications discussed during this encounter and other current Medications Discontinued / Stopped on this date MUSTAPHA EASTMAN MD on 11/08/2023 Losartan Potassium-HCTZ 100- 12.5 MG Oral Tablet Provider: MUSTAPHA EASTMAN MD Diagnosis: Last Documented On 4 11:26AM By Ginny Feng ; [facility] Current Medications (continue as prescribed) Acetaminophen 500 MG Oral Tablet 02/08/2024 Provider : Diagnosis: Last Documented On 4 1:11PM By Polly Carvalho ; [facility] Aplisol 5 UNIT/0.1ML Intradermal Solution 02/08/2024 Provider: Diagnosis: Last Documented On 4 1:15PM By Polly Carvalho ; [facility] Vitamin B12 1000 MCG Oral Tablet 02/08/2024 Prov ider: Diagnosis: Last Documented On 4 1:15PM By Polly Carvalho ; [facility] predniSONE 5 MG Oral Tablet 02/08/2024 Provider: Diagnosis: Last Documented On 4 1:14PM By Polly Carvalho ; [facility] MiraLax 17 GM Oral Packet 02/08/2024 Provider: Diagnosis: Last Documented On 4 1:13PM By Polly Carvalho ; [facility] hydroCHLOROthiazide 12.5 MG Oral Tablet 02/08/2024 P nakiader: Diagnosis: Last Documented On 4 1:13PM By Polly Carvalho ; [facility] CoQ-10 200 MG Oral Capsule 02/08/2024 Provider: Diagnosis: Last Documented On 4 1:12PM By Polly Carvalho ; [facility] Biotin 5000 MCG Oral Tablet 02/08/2024 Provider: Diagnosis: Last Documented On 4 1:12PM By Polly Carvalho ; [facility] Calcium Ascorbate 500 MG Oral Tablet 02/08/2024 Prov ider: Diagnosis: Last Documented On 4 1:12PM By Polly Carvalho ; [facility] Melatonin 10 MG Oral Capsule 02/08/2024 Provider : Diagnosis: Last Documented On 4 11:41AM By Ginny Feng ; [facility] Aspirin 81 MG Oral Tablet Delayed Release 02/08/2024 Provider: Diagnosis: Last Documented On 4 11:41AM By Ginny Feng ; [facility] B-Complex/Vitamin C (w/ Ca) Oral Tablet 02/08/2024 P nakiader: Diagnosis: Last Documented On 4 11:42AM By Ginny Feng ; [facility] Albuterol Sulfate 2.5 MG/0.5 ML Inhalation Nebulization solution 02/08/2024 Provider: Diagnosis: Last Documented On 4 11:42AM By Ginny Feng ; [facility] oxyCODONE-Acetaminophen 5-325 MG Oral Tablet Provider: USMAN CLEVELAND MD Diagnosis: Last Documented On 4 11:26AM By Ginny Feng ; [facility] traZODone HCl 50 MG Oral Tablet 01/27/2024 Provider: USMAN CLEVELAND MD Diagnosis: Last Documented On 4 11:26AM By Ginny Feng ; [facility] Sertraline HCl 25 MG Oral Tablet 01/27/2024 Provider : USMAN CLEVELAND MD Diagnosis: Last Documented On 4 11:26AM By Ginny Feng ; [facility] Stiolto Respimat 2.5-2.5 MCG /ACT Inhalation Aerosol Solution 01/26/2024 Provider: USMAN CLEVELAND MD Diagnosis: Last Documented On 4 11:26AM By Ginny Feng ; [facility] Losartan Potassium-HCTZ 100- 12.5 MG Oral Tablet 01/23/2024 Provider: MUSTAPHA EASTMAN MD Diagnosis: Last Documented On 4 11:26AM By Ginny Feng ; [facility] Metoprolol Succinate ER 25 M G Oral Tablet Extended Release 24 Hour 01/08/2024 Provider: MUSTAPHA WATTS MD Diagnosis: Last Documented On 4 11:26AM By Ginny Feng ; [facility] FeroSul 325 (65 Fe) MG Oral Tablet 01/08/2024 Provid er: MUSTAPHA EASTMAN MD Diagnosis: Last Documented On 4 11:26AM By Ginny Feng ; [facility] Rosuvastatin Calcium 10 MG Oral Tablet 12/12/2023 Pr ovider: Diagnosis: Last Documented On 4 11:26AM By Ginny Feng ; [facility] Omeprazole 40 MG Oral Capsule Delayed Release 07/13/20 23 Provider: Diagnosis: Last Documented On 4 11:40AM By Ginny Feng ; [facility] Medications Administered Includes: Administered Medications from this encounter No Administered Medications Recorded Vital Signs Includes: Vital Signs from this encounter Vital Name 02/08/2024 11:26A Height (in) 65 Weight (lb) 170 Body Mass Index 28.3 Body Surface Area 1.8 Pain Level 5 Note: lc Last Documented: On 02/08/2024 11:27A M ; [facility] Results Includes: Results discussed during this encounter [...] 8 - Yes, previous treatment. Dr. Stone [facility] - - Review of medications documented Social History Description Last Updated Caffeine use 02/08/2024 Last Documented On 4 2:00PM ; [facility] Not a current smoker. 02/08/2024 Last Documented On 4 2:00PM ; [facility] Tobacco non-user 02/08/2024 Last Documented On 4 2:00PM ; [facility] No recent change in diet 02/08/2024 Last Documented On 4 2:00PM ; [facility] Not exercising regularly 02/08/2024 Last Documented On 4 2:00PM ; [facility] Not using alcohol 02/08/2024 Last Documented On 4 2:00PM ; [facility] Not using drugs 02/08/2024 Last Documented On 4 2:00PM ; [facility] Retired from work 02/08/2024 Last Documented On 4 2:00PM ; [facility] Smoking Status Unknown Procedures and Surgical History Includes: Procedures from this encounter Procedures Code Diagnosis Performing Provider Service Location Service Date AP PELVIS w/ 1 VIEW HIP (LEFT) 06897 Fx unsp part of nk of l femr, subs for clos fx w routn heal Milo Bales PA-C [facility] 02/08/2024 Last Documented On 4 7:25AM ; [facility] use of tobacco assessment performed 1000F Last Documented On 4 11:27AM ; [facility] patient screened for future fall risk: documentation of any fall with injury in past year 1100F Last Documented On 4 11:27AM ; [facility] review of medications documented 1160F Last Documented On 4 11:27AM ; [facility] Surgical History Last Updated History of back surgery 02/08/2024 Last Documented On 4 2:00PM ; [facility] History of heart surgery 02/08/2024 Last Documented On 4 2:00PM ; [facility] History of hysterectomy 02/08/2024 Last Documented On 4 2:00PM ; [facility] History of total hip replacement Left hi p hemiarthroplasty 02/08/24 @ [facility] 02/08/2024 Last Documented On 4 2:00PM ; [facility] Medical History Includes: Medical History addressed during this encounter Description Last Updated History of arthritis 02/08/2024 Last Documented On 4 2:00PM ; [facility] History of depression 02/08/2024 Last Documented On 4 2:00PM ; [facility] History of heart disease 02/08/2024 Last Documented On 4 2:00PM ; [facility] History of Heartburn / Acid Reflux 02/07 Last Documented On 4 2:00PM ; [facility] History of History of Blood Transfusion 02/08/2024 Last Documented On 4 2:00PM ; [facility] History of History of Cancer 02/08/2024 Last Documented On 4 2:00PM ; [facility] History of Hypertension 02/08/2024 Last Documented On 4 2:00PM ; [facility] History of Sleep Apnea 02/08/2024 Last Documented On 4 2:00PM ; [facility] Family History Includes: Family History addressed during this encounter Description Last Updated Family history of cancer 02/08/2024 Last Documented On 4 2:00PM ; [facility] Family history of heart disease 02/08/20 Last Documented On 4 2:00PM ; [facility] Family history of rheumatoid arthritis 0 02/08/2024 Last Documented On 4 2:00PM ; [facility] Family history of systemic hypertension 02/08/2024 Last Documented On 4 2:00PM ; [facility] Review of Systems Includes: Review of Systems [...] Active Last Documented On 4 10:15AM ; [facility] Ibuprofen Allergy 02/08/2024 Active Last Documented On 4 10:15AM ; [facility] Encounters Encounter Provider Location Date Check-In Time Check-Out Time Diagnosis New patient-Post op appointment Scott Stone MD [facility] 02/08/20 24 11:15AM 11:55AM Overweight Insurance Includes: Active Insurance Policies Plan Name Member ID Group # Subscriber Relationship Effect darnell Dates 1 - [employer] [id number] [place] Self Clinical Notes Includes: Clinical Notes from this encounter * Progress note Date Encounter Last Documented by 02/08/2024 New patient-Post op appointment Last documented on 03/06/2024; 2:00 PM, Scott Stone MD; [facility] Active Problems & Conditions - Joint [...] 8 - Yes, previous treatment. Dr. Stone [facility] - - Review of medications documented Current [...] hip replacement Left hip hemiarthroplasty 02/08/24 @ [facility] Social History Not a current smoker. Current [...] of left hip hemiarthroplasty from 01/24/[address] [facility] Physical exam: On exam incision is [...] Care Team - MUSTAPHA EASTMAN MD - [employer] Health Reminders - Assess BMI satisfied 02/08/2024. - Assess Tobacco Use satisfied 02/08/2024.
--- OUTSIDE RECORDS SUMMARY | 2024-08-28 15:59 | XMS_ITS | Encounter Summary ---
Author Organization [employer] Address [address] [place] [id number] Care Team Providers Care Rn Rehab Name Role Phone Unavailable Primary Care Provider Unavailabl e Encounter Details Date Type Department Care Team (Late st Contact Info) Description 12/14/2018 Transcribed Document [facility] [place] [address] ProviderHelen MD [address] [place], [place] [id number] Social History Tobacco Use Types Packs/Day Years Used Date Smoking Tobacco: Never Assessed Comments Unknown Sex and Gender Information Value Date Recorded Sex Assigned at Not on file Legal Sex Female 2:04 PM CDT Gender Identity Not on file Sexual Orientation Not on file documented as of this encounter Miscellaneous Notes * Cerner Conversion Note - Helen ProviderMD - 12/14/2018 3:38 PM LEGAL SUPPORT MANAGER [facility] Main OR PACU Summary Primary Physician: ASHOK CHENG MD-SNU Finalized Date/Time: 12/14/18 18:32:38 Pt. Name: BERNICE NAVARRETE/Sex: 1945 Female Med Rec #: [id number] Physician: ASHOK CHENG MD-SNU Financial #: [id number] Pt. Type: O Room/Bed: Admit/Disch: 12/14/18 11:04:00 - Institution: [facility] Main OR PACU I Case Times Entry 1 In PACU I 12/14/18 16:25:00 Ready for PACU 12/14/18 17:20:00 Discharge Discharge from PACU 12/14/18 18:00:00 I Last Modified By: LARA CHOI RN 12/14/18 18:32:24 [facility] Main OR PACU Acuity Entry 1 Start Time 12/14/18 17:20:00 Stop Time 12/14/18 18:00:00 Acuity Level [facility] PACU Acuity I Last Modified By: LARA CHOI RN 12/14/18 18:32:36 Finalized By: LARA CHOI, RN Document Signatures Signed By: LARA CHOI RN 12/14/18 18:32 documented in this encounter Plan of Treatment Not on file documented as of this encounter Visit Diagnoses Not on filedocumented in this encounter
--- OUTSIDE RECORDS SUMMARY | 2024-08-28 15:59 | XMS_ITS | Encounter Summary ---
Author Organization [employer] Address [address] [place] [id number] Care Team Providers Care Communications Technologist Name Role Phone Unavailable Primary Care Provider Unavailabl e Encounter Details Date Type Department Care Team (Late st Contact Info) Description 12/14/[address] [facility] [place] Family Medicine [facility] [place] [address] ProviderHelen MD [address] [place], [place] [id number] Social History Tobacco Use Types Packs/Day Years Used Date Smoking Tobacco: Never Assessed Comments Unknown Sex and Gender Information Value Date Recorded Sex Assigned at Not on file Legal Sex Female 2:04 PM CDT Gender Identity Not on file Sexual Orientation Not on file documented as of this encounter Miscellaneous Notes * Cerner Conversion Note - Helen ProviderMD - 12/14/2018 3:38 PM ADMITTING COUNSELOR [facility] Main OR IntraOp Summary Primary Physician: ASHOK CHENG MD-SNU Finalized Date/Time: 12/16/18 13:56:08 Pt. Name: ROSALBABERNICE D.O.B./Sex: 1945 Female Med Rec #: [id number] Physician: ASHOK CHENG MD-SNU Financial #: [id number] Pt. Type: O Room/Bed: Admit/Disch: 12/14/18 11:04:00 - Institution: [facility] IntraOp Case Attendance Entry 1 Entry 2 Entry 3 Case Attendee ASHOK CHENG WASSON, SANDRA D, RN SAMMONS, JUSTIN, PA-C MD-SNU Role Performed Surgeon/Proceduralist, Denture Packer, First Physician mail handler assistant First Time In 12/14/18 15:13:00 12/14/18 15:13:00 12/14/18 15:13:00 Time Out 12/14/18 16:23:00 12/14/18 16:23:00 12/14/18 16:23:00 Procedure Lumbar Laminectomy(Left) Lumbar Laminectomy(Left) Lumbar Laminectomy(Left) Other Attendee Superficial Wound Closed By: Last Modified By: ISAÍAS RINCON, RN ISAÍAS RINCON, RN IASÍAS RINCON, RN 12/14/18 16:23:11 12/14/18 16:23:11 12/14/18 16:23:11 Entry 4 Entry 5 Entry 6 Case Attendee IGGY EVANS LARRY B, SLIP INJECTOR AND APPLICATOR LYLE FIGUEROA MD Role Performed Scrub, First SLIP INJECTOR AND APPLICATOR/Nurse Officer Lieutenant Anesthesiologist of Record Time In 12/14/18 15:13:00 12/14/18 15:13:00 12/14/18 15:13:00 Time Out 12/14/18 16:23:00 12/14/18 16:04:00 12/14/18 16:23:00 Procedure Lumbar Laminectomy(Left) Lumbar Laminectomy(Left) Lumbar Laminectomy(Left) Other Attendee Superficial Wound Closed By: Last Modified By: ISAÍAS RINCON, ISAÍAS SAGE, RN ISAÍAS RINCON, RN 12/14/18 16:23:11 12/14/18 16:23:11 12/14/18 16:23:11 Entry 7 Entry 8 Case Attendee Kendy Raymond SIMPSON, KRISTEN, LELA Diagnostic Third Grade Teacher Role Performed Recreation Assistant SLIP INJECTOR AND APPLICATOR/Nurse Officer Lieutenant Time In 12/14/18 15:13:00 12/14/18 16:04:00 Time Out 12/14/18 16:23:00 12/14/18 16:23:00 Procedure Lumbar Laminectomy(Left) Lumbar Laminectomy(Left) Other Attendee Superficial Wound Closed By: Last Modified By: ISAÍAS RINCON, ISAÍAS SAGE, RN 12/14/18 16:23:11 12/14/18 16:23:11 [facility] IntraOp Case Attendance Audit 12/14/18 16:23:11 Probation And Parole Officer: WASSONSY Modifier: WASSONSY 1 <+> Time Out 1 <*> Procedure Lumbar Laminectomy(Left) 2 <+> Time Out 2 <*> Procedure Lumbar Laminectomy(Left) 3 <+> Time Out 3 <*> Procedure Lumbar Laminectomy(Left) 4 <+> Time Out 4 <*> Procedure Lumbar Laminectomy(Left) 5 <*> Procedure Lumbar Laminectomy(Left) 6 <+> Time Out 6 <*> Procedure Lumbar Laminectomy(Left) 7 <+> Time Out 7 <*> Procedure Lumbar Laminectomy(Left) 8 <+> Time Out 8 <*> Procedure Lumbar Laminectomy(Left) 12/14/18 16:05:58 Probation And Parole Officer: WASSONSY Modifier: WASSONSY 1 <*> Procedure Lumbar Laminectomy(Left) 2 <*> Procedure Lumbar Laminectomy(Left) 3 <*> Procedure Lumbar Laminectomy(Left) 4 <*> Procedure Lumbar Laminectomy(Left) 5 <+> Time Out 5 <*> Procedure Lumbar Laminectomy(Left) 6 <+> Time In 6 <*> Procedure Lumbar Laminectomy(Left) 7 <+> Time In 7 <*> Procedure Lumbar Laminectomy(Left) <+> 8 Case Attendee <+> 8 Role Performed <+> 8 Time In <+> 8 Procedure 12/14/18 15:35:50 Probation And Parole Officer: WASSONSY Modifier: WASSONSY 1 <+> Time In 1 <*> Procedure Lumbar Laminectomy(Left) 2 <+> Time In 2 <*> Procedure Lumbar Laminectomy(Left) 3 <+> Time In 3 <*> Procedure Lumbar Laminectomy(Left) 4 <+> Time In 4 <*> Procedure Lumbar Laminectomy(Left) 5 <+> Time In 5 <*> Procedure Lumbar Laminectomy(Left) <+> 6 Case Attendee <+> 6 Role Performed <+> 6 Procedure <+> 7 Case Attendee <+> 7 Role Performed <+> 7 Procedure 12/14/18 14:55:16 Probation And Parole Officer: WASSONSY Modifier: WASSONSY <+> 4 Case Attendee <+> 4 Role Performed <+> 4 Procedure <+> 5 Case Attendee <+> 5 Role Performed <+> 5 Procedure [facility] IntraOp Case Times Entry 1 Patient In Room Time 12/14/18 15:13:00 Out Room Time 12/14/18 16:23:00 Anesthesia Start Time 12/14/18 15:13:00 Stop Time 12/14/18 16:23:00 Surgery / Procedure Times Start Time 12/14/18 15:38:00 Stop Time 12/14/18 16:13:00 Last Modified By: ISAÍAS RINCON RN 12/14/18 16:23:07 [facility] IntraOp Case Times Audit 12/14/18 16:23:07 Probation And Parole Officer: WASSONSY Modifier: WASSONSY <+> 1 Out Room Time <+> 1 Stop Time 12/14/18 16:13:39 Probation And Parole Officer: WASSONSY Modifier: WASSONSY <+> 1 Stop Time 12/14/18 15:38:29 Probation And Parole Officer: WASSONSY Modifier: WASSONSY <+> 1 Start Time [facility] IntraOp Cautery Entry 1 Entry 2 ESU Identification Cautery Type Monopolar ESU BiPolar ESU Cautery Type Comments ID Number [id number] ID Type Hospital Number Hospital Number Cautery Settings Cut Setting 40 8 Coag Setting 40 40 Blend Setting Bipolar Setting Argon Setting Argon Rosario ESU Grounding Pad Ground Pad Type Adult Grounding Pad Type Comment Grounding Pad Site Right thigh Grounding Pad Site Comment Grounding Pad ISAÍAS RINCON RN Applied By Grounding Pad Site Warm, dry and intact Skin Condition Before Cautery Site Skin Condition Before Comment Grounding Pad Site Unchanged Skin Condition After Cautery Site Skin Condition After Comment Last Modified By: ISAÍAS RINCON RN WASSON, SANDRA D, RN 12/14/18 15:40:53 12/14/18 15:40:53 [facility] IntraOp Communication Entry 1 Communication To Family/Significant other Comment START Communication By ISAÍAS RINCON RN Date and Time 12/14/18 15:39:00 Last Modified By: ISAÍAS RINCON RN 12/14/18 15:39:44 [facility] IntraOp Counts Verification Entry 1 Procedure Lumbar Laminectomy(Left) Count Info Count Type Sponge, Sharps, Miscellaneous Counts Verification Baseline/pre-procedure Sequence Count Results Not Applicable Counts Performed By Count Performed By IGGY EVANS (Scrub) Count Performed By ISAÍAS RINCON RN (RN) Last Modified By: ISAÍAS RINCON RN 12/14/18 15:40:01 [facility] IntraOp Counts Final Entry 1 Procedure Lumbar Laminectomy(Left) Final Count Info Count Type Sponge, Sharps, Miscellaneous Counts Verification Skin Closure/end of Sequence procedure Count Results Correct, surgeon notified Counts Performed By Count Performed By IGGY EVANS (Scrub) Count Performed By ISAÍAS RINCON RN (RN) Last Modified By: ISAÍAS RINCON RN 12/14/18 16:05:33 [facility] IntraOp Departure from OR Entry 1 Integumentary Assessment Integumentary WDL Assessment WDL Transfer/Handoff Transfer to PACU Phase I Handoff Method Phone call Handoff Reported to VIDYA VALENTINO RN Post-op Transport Stretcher/Gurney Via Patient Transport BOBBY DURAN PA-C, Accompanied by SAULO ABDI CRNA Last Modified By: ISAÍAS RINCON RN 12/14/18 16:06:24 [facility] IntraOp Dressing and Packing Entry 1 Type Dressing Location OP SITE Wound Dressing Item Steristrip, Other Applied By BOBBY DURAN PA-C Other Comments MASTISOL, STERISTRIPS, COVADERM Last Modified By: ISÍAAS RINCON RN 12/14/18 15:50:21 [facility] IntraOp Fire Risk Assessment Entry 1 Fire Info Surgical Site or 0- No Incision Above the Xyphoid Open O2 Source 0- No (Mask or Cannula) Available Ignition 1- Yes (ESU, Laser, Light Source) Fire Risk 1 Assessment Score Fire Score Fire Risk Yes Assessment Complete Fire Risk ISAÍAS RINCON RN Assessment Verified By Fire Risk 12/14/18 15:12:00 Assessment Verified Date/Time Fire Risk Standard Fire Yes Safety Precautions Followed Last Modified By: ISAÍAS RINCON RN 12/14/18 15:42:21 [facility] IntraOp General Case Funeral Driver 1 Case Information OR OR 16 [facility] Case Level 1 Room Verified Yes Wound Class I - Clean Specialty SN Neurosurgery Anesthesia Type General ASA Class 3 Diagnosis Preop Diagnosis LUMBAR RADICULOPATHY Postop Same As Preop No Postop Diagnosis SEE MD POST OP NOTE Last Modified By: ISAÍAS RINCON RN 12/14/18 15:41:01 [facility] IntraOp General Case Data Audit 12/14/18 15:41:01 Probation And Parole Officer: RANJAN Modifier: RANJAN <+> 1 ASA Class <+> 1 Room Verified [facility] IntraOp Intraoperative Assessment Entry 1 Handoff Method Online nursing summary Valid History / Yes Physical in Chart Preoperative Yes Checklist Reviewed/Evaluated Allergies Reviewed Yes Patient is Latex No Sensitive Isolation Not applicable Precautions Noted Level of WDL Consciousness (WDL = Alert, Oriented to Person, Place, and Time) Skin Assessment No Verified Present Upon IVs Arrival to OR Last Modified By: ISAÍAS RINCON RN 12/14/18 15:42:38 [facility] IntraOp Intraoperative Equipment Entry 1 Type Equipment Equipment Equipment Krzysztof Suction System ID Number [id number] Setting 180 MM HG Intraop Monitoring Electrocardiogram Three lead placement (ECG) Electrode Placement Blood Pressure Non-Invasive BP Device Source Antiembolic Devices Antiembolic Devices Sequential compression device, knee high Antiembolic Device Bilateral Location Antiembolic Device 58565 ID Number Scopes Photo/Video Documentation Photo No Video No Last Modified By: ISAÍAS RINCON RN 12/14/18 15:43:35 [facility] IntraOp Medication Admin Entry 1 Entry 2 Entry 3 Medication/Irrigant lidocaine 1% w/ Bacitracin 50,00units SPNG SURGFOAM epinephrine 1:100,000 powder vial [id number] 30ml vial - [id number] Combo Med List Time Administered Route of LOCAL ADDED TO NS IRRIGATION TOPICAL Administration Dose Dose 10 39949 1 Unit of Measure ml units pkt Volume Administered By ASHOK CHENG TUTT, MATTHEW PAIGE, TUTT, MATTHEW PAIGE, MD-SNU MD-SNU MD-SNAlee Procedure Irrigation Irrigant Volume In Irrigant Volume Out Last Modified By: ISAÍAS RINCON, RN ISAÍAS RINCON, RN ISAÍAS RINCON, CAROLINE 12/14/18 15:48:18 12/14/18 15:48:18 12/14/18 15:48:18 Entry 4 Entry 5 Medication/Irrigant thrombin 5000units Kenalog 40mg/ml - topical powder - [id number] Combo Med List Time Administered Route of TOPICAL TOPICAL Administration Dose Dose 5000 40 Unit of Measure units mg Volume Administered By ASHOK CHENG TUTT, MATTHEW PAIGE, MD-SNU MD-SNAlee Procedure Irrigation Irrigant Volume In Irrigant Volume Out Last Modified By: ISAÍAS RINCON RN WASSON, SANDRA D, RN 12/14/18 15:48:18 12/14/18 16:00:27 General Comments: DR CHENG'S LOCAL COMBO: KENALOG 40 MG, TRAMADOL 15 MG, MARCAINE 0.25% 30 ML [facility] IntraOp Medication Admin Audit 12/14/18 16:00:27 Probation And Parole Officer: RANJAN Modifier: WASSONSY <+> 5 Medication/Irrigant <+> 5 Route of Administration <+> 5 Administered By <+> 5 Dose <+> 5 Unit of Measure SJ IntraOp Patient Positioning Entry 1 Procedure Lumbar Laminectomy(Left) Body Position Prone Left Arm Position Secured on padded arm board Right Arm Position Secured on padded arm board Left Leg Position Elevated Right Leg Position Elevated Feet Uncrossed Yes Pressure Points Yes Checked Positioning Devices Head Rest, Pad, Arm, Pad, Elbow, Pillows, Safety Strap, Thighs, Doug Frame Positioned By ASHOK CHENG MD-SNU, ISAÍAS RINCON, RN, BOBBY DURAN PA-C, ALEX BLACK, SLIP INJECTOR AND APPLICATOR Position Verified Positioning Yes Verified by Anesthesia Positioning Yes Verified by Surgeon Last Modified By: ISAÍAS RINCON RN 12/14/18 15:45:21 [facility] IntraOp Sign In Entry 1 Patient, Site, Yes Procedure Identified Surgical Consent Yes Confirmed Relevant Surgical Yes Documents Available Surgical Site N/A Marked by person performing procedure Anesthesia Machine Yes Check Completed Medication Checks Yes Completed Allergies Yes Airway Difficult Yes Airway/Aspiration Risk Difficult Yes Airway/Aspiration Intervention Equipment Available Blood Loss Risk Yes Blood Loss Yes Intervention Equipment Prepared and Ready Blood Identifiers Not applicable Verified Per Policy Hypothermia Risk Yes Warming Measures Yes Taken Last Modified By: ISAÍAS RINCON RN 12/14/18 15:43:51 [facility] IntraOp Sign Out Entry 1 RN Confirmation Surgical Yes Procedure(s) Identified Instrument, Sponge Yes and Sharps Counts Correct/Documented Equipment Problems N/A Documented Specimen Labeled N/A Correctly Urinary Catheter N/A Documented in IView Ch Patient Yes Recovery Concerns Reviewed with Anesthesia Provider, Surgeon and RN Ch Patient Yes Management Concerns Reviewed with Anesthesia Provider, Surgeon and RN Safety Checklist Yes Elements Complete? RN Sign Out ISAÍAS RINCON, CAROLINE Signature RN Sign Out 12/14/18 16:23:00 Signature Date/Time Plan of Care Outcome - Fire Risk OUTCOME STATEMENT: Goal met Patient is free from injury related to surgical fire Plan of Care Outcome - Pt Positioning OUTCOME STATEMENT: Goal met Absence of signs and symptoms of positioning injury. Plan of Care Outcome - Skin Prep OUTCOME STATEMENT: Goal met Intraoperative care is consistent with measures to prevent infection Plan of Care Outcome - Xray/Images OUTCOME STATEMENT: Goal met Absence of observable signs or symptoms of radiation injury Plan of Care Outcome - Counts OUTCOME STATEMENT: Goal met Absence of signs and symptoms of injury related to extraneous objects Last Modified By: ISAÍAS RINCON RN 12/14/18 16:23:18 [facility] IntraOp Sign Out Audit 12/14/18 16:23:18 Probation And Parole Officer: WASSONSY Modifier: WASSONSY <+> 1 RN Sign Out Signature Date/Time [facility] IntraOp Skin Prep Entry 1 Procedure Lumbar Laminectomy(Left) Prescribed Yes Pre-Surgical Prep Completed Prep Area BACK Intraop Prep Integumentary WDL Assessment WDL Prep Agents Alcohol, Chlorhexadine gluconate, DuraPrep Prep by ASHOK CHENG MD-SNU Hair Removal Methods No hair removal performed Last Modified By: ISAÍAS RINCON, RN 12/14/18 15:44:15 [facility] IntraOp Surgical Procedures Entry 1 Procedure Lumbar Laminectomy Modifiers Left Additional (LT L4-5 DECOMPRESSION, Procedure MIS LAMINECTOMY Description Primary Procedure Yes Primary Surgeon ASHOK CHENG MD-SNAlee Start 12/14/18 15:38:00 Stop 12/14/18 16:13:00 Anesthesia Type General Specialty SN Neurosurgery Wound Class I - Clean Last Modified By: ISAÍAS RINCON RN 12/14/18 16:13:43 General Comments: CLINDAMYCIN 900 MG IV PER ANESTHESIA [facility] IntraOp Surgical Procedures Audit 12/14/18 16:13:43 Probation And Parole Officer: WASSONSY Modifier: WASSONSY <+> 1 Stop 12/14/18 15:48:46 Probation And Parole Officer: WASSONSY Modifier: WASSONSY 1 <*> Primary Surgeon ASHOK CHENG MD-SNU 1 <*> Primary Surgeon ASHOK CHENG MD-SNU 1 <*> Primary Surgeon ASHOK CHENG MD-SNU 1 <*> Specialty 1 <*> Specialty 1 <*> Specialty 1 <*> Start 1 <*> Start 1 <*> Start 1 <*> Wound Class 1 <*> Wound Class 1 <*> Wound Class 1 <*> Anesthesia Type 1 <*> Anesthesia Type 1 <*> Anesthesia Type [facility] IntraOp Temp Regulation Devices Entry 1 Temp Regulation Temperature Warm blankets, Room Regulation Device temperature, Forced Air Warming device Temperature 58128 Regulation Device Serial/Unit Number Temperature Upper body Regulation Site Temperature Device 43 C Setting Temperature BLACKALEX, SLIP INJECTOR AND APPLICATOR Regulation Device Applied by Last Modified By: ISAÍAS RINCON RN 12/14/18 15:49:45 [facility] IntraOP Time Out Entry 1 Procedure to be Lumbar Laminectomy(Left) Performed Time Out Time Out Pause Time 12/14/18 15:37:00 All activity Yes suspended (unless life threatening emergency) Team Verbally Correct patient Confirms Information identity, Consent form is present and accurate, Agreement on the procedure to be done, Correct patient position, Relevant images/results properly labeled/appropriately displayed, Confirm antibiotics have been administered, Confirm the skin prep has dried, Confirm prosthesis/implant/devic e is present, Performed in location of procedure after prepped/draped Antibiotic Yes Prophylaxis Administered Or In Progress Within the Last 60 Minutes Beta Marixa N/A Administered Venous Yes Thromboembolism Prophylaxis Required Anticipated Critical Events Surgeon None expected Anesthesia Provider Patient specific concerns Nursing Assures Sterility of instruments Essential Imaging Yes Labeled and Displayed Last Modified By: ISAÍAS RINCON RN 12/14/18 15:38:26 [facility] IntraOp X-Ray and Images Entry 1 X-Ray/Imaging Type Fluoroscopy Fluoroscopy Type C-Arm Site OP SITE Salary And Wage Administrator Name Kendy Raymond, Diagnostic Third Grade Teacher Last Modified By: ISAÍAS RINCON RN 12/14/18 15:49:16 Case Comments <None> Finalized By: TOSHIA ROSARIO Document Signatures Signed By: ISAÍAS RINCON RN 12/14/18 16:23 TOSHIA ROSARIO 12/16/18 13:56 Unfinalized History Date/Time Username Reason for Unfinalizing Freetext Reason for Unfinalizing 12/16/18 13:55 [email or web address] Correct Billing Electronically signed by [facility] Conversion Whizzer Operator Cerner at 02/02/2023 12:32 PM CDT documented in this encounter Plan of Treatment Not on file documented as of this encounter Visit Diagnoses Not on filedocumented in this encounter
--- OUTSIDE RECORDS SUMMARY | 2024-08-28 15:59 | XMS_ITS | Encounter Summary ---
Author Organization [employer] Address [address] [place] [address] Care Team Providers Care Water Systems Engineer Name Role Phone Unavailable Primary Care Provider Unavailabl e Encounter Details Date Type Department Care Team (Late st Contact Info) Description 11/05/2018 Historic Encounter [facility] Radiology [address] [place] [address] Jono Gray MD [address] [address] Social History Tobacco Use Types Packs/Day Years [...] Procedure Name Priority Date/Time Associated Diagnosis Comments XR LUMBAR SPINE 2 OR 3 VIEWS Routine 11/05/2018 4:53 PM EST documented in this encounter Results * XR spine lumbar 2 or 3 views (11/05/2018 4:53 PM EST) Anatomical Region Laterality Modality L-spine X-Ray 11/05/2018 4:53 PM EST Narrative 11/05/2018 11:35 PM EST LUMBAR SPINE SERIES HISTORY: ??Lumbar back pain . FINDINGS: 3 views including flexion and extension views of the lumbar spine were obtained. ??The pedicles are intact . There is ??mild diffuse ?? degenerative disc disease . ??There is facet hypertrophy . There is a wedge compression form of the upper endplate of T12 which is age indeterminant but probably chronic. ??There is no significant subluxation . There is no abnormal motion with flexion and extension views. ? IMPRESSION: Degenerative changes as above. Age-indeterminate compression deformity of the upper endplate of T12 is probably chronic. Images reviewed, interpreted, and dictated by Dr. Acacia Gray. Transcribed by Radha Elmore (Senthil). I have personally viewed, interpreted and dictated the examination. I have read and agree with the above final transcribed report. Procedure Note Jono Gray MD - 01/31/2023 LUMBAR SPINE SERIES HISTORY: Lumbar back pain . FINDINGS: 3 views including flexion and extension views of the lumbar spine were obtained. The pedicles are intact . There is mild diffuse degenerative disc disease . There is facet hypertrophy . There is a wedge compression form of the upper endplate of T12 which is age indeterminant but probably chronic. There is no significant subluxation . There is no abnormal motion with flexion and extension views. IMPRESSION: Degenerative changes as above. Age-indeterminate compression deformity of the upper endplate of T12 is probably chronic. Images reviewed, interpreted, and dictated by Dr. Acacia Gray. Transcribed by Radha Elmore (Senthil). I have personally viewed, interpreted and dictated the examination. I have read and agree with the above final transcribed report. us Jono Gray MD IMG DIAGNOSTIC IMAGING OR DERABLES Final Result documented in this encounter Visit Diagnoses Not on filedocumented in this encounter
--- OUTSIDE RECORDS SUMMARY | 2024-08-28 15:59 | XMS_ITS | Encounter Summary ---
Author Organization [employer] Address [address] [place] [address] Care Team Providers Care Psychological Tests Sales Agent Name Role Phone Unavailable Primary Care Provider Unavailabl e Encounter Details Date Type Department Care Team (Late st Contact Info) Description 12/14/2018 Transcribed Document [facility] [place] [address] ProviderHelen MD [place] [address] Social History Tobacco Use Types Packs/Day Years Used Date Smoking Tobacco: Never Assessed Comments Unknown Sex and Gender Information Value Date Recorded Sex Assigned at Not on file Legal Sex Female 2:04 PM CDT Gender Identity Not on file Sexual Orientation Not on file documented as of this encounter Miscellaneous Notes * Cerner Conversion Note - Historical ProviderMD - 12/14/2018 6:18 PM ACOUSTICAL INSTALLER Nursing Discharge Summary Entered On: 12/14/2018 18:18 EST Performed On: 12/14/2018 18:18 EST by Jalyn Fermin RN Discharge Documentation Discharge Date/Time : 12/14/2018 18:18 EST Patient Disposition, General : Discharge Discharge To : Home with ambulatory/outpatient follow-up Mode Of Departure, General Discharge : Air, Private vehicle Accompanied By, Discharge : Daughter IV Discontinued : Yes Personal Belongings With Patient : Yes Prescriptions Given to Patient : Yes Discharge Instructions Reviewed With, Opportunity For Questions Given : Patient, Daughter Patient Education Completed : Yes Number of Prescriptions Given : 2 Teaching Method : Explanation, Printed materials Teaching Evaluation : Verbalizes understanding Jalyn Fermin RN - 12/14/2018 18:18 EST Electronically signed by [facility] Conversion Development Analyst Cerner at 02/02/2023 12:18 PM CDT documented in this encounter Plan of Treatment Not on file documented as of this encounter Visit Diagnoses Not on filedocumented in this encounter
--- OUTSIDE RECORDS SUMMARY | 2024-08-28 15:59 | XMS_ITS | Encounter Summary ---
Author Organization [employer] Address [address] [place] [address] Care Team Providers Care Crimping Machine Operator For Metal Name Role Phone Unavailable Primary Care Provider Unavailabl e Encounter Details Date Type Department Care Team (Late st Contact Info) Description 12/14/2018 Historic Encounter [facility] [address] [place] [address] Mariano Crooks DO [address] [place] [address] Social History Tobacco Use Types [...] Procedure Name Priority Date/Time Associated Diagnosis Comments [place] HEALTH AND SAFETY TRAINER IN OR 30 MINUTE INCREMENTS Routine 12/14/2018 4:00 PM EST documented in this encounter Results * [place] radio broadcaster in or 30 minute increments (12/14/2018 4:00 PM EST) Anatomical Region Laterality Modality Radiographic Chelsey ging 12/14/2018 4:00 PM EST Narrative 12/14/2018 11:09 PM EST FLUOROSCOPY IN THE OR, WITH IMAGES HISTORY: Back pain. FINDINGS: Fluoroscopy was provided by the radiology department for the clinical service. Fluoroscopic spot films were obtained. A single fluoroscopic image was obtained for lumbar spine surgery. ? Fluoroscopy exposure time: ??Less than one ??minutes. IMPRESSION: See above. Please see operative report for details. ?? Images reviewed, interpreted, and dictated by Dr. Mariano Crooks. Transcribed by Radha Elmore (Senthil). I have personally viewed, interpreted and dictated the examination. I have read and agree with the above final transcribed report. Procedure Note Mariano Crooks, - 01/31/2023 FLUOROSCOPY IN THE OR, WITH IMAGES HISTORY: Back pain. FINDINGS: Fluoroscopy was provided by the radiology department for the clinical service. Fluoroscopic spot films were obtained. A single fluoroscopic image was obtained for lumbar spine surgery. Fluoroscopy exposure time: Less than one minutes. IMPRESSION: See above. Please see operative report for details. Images reviewed, interpreted, and dictated by Dr. Mariano Crooks. Transcribed by Radha Elmore (Senthil). I have personally viewed, interpreted and dictated the examination. I have read and agree with the above final transcribed report. Mariano Crooks DO IMG FLUOROSCOPY ORDERABLES Final Result documented in this encounter Visit Diagnoses Not on filedocumented in this encounter
--- OUTSIDE RECORDS SUMMARY | 2024-08-28 15:59 | XMS_ITS | Encounter Summary ---
Author Organization [employer] Address [address] [place] [address] Care Team Providers Care Infrastructure Architect Name Role Phone Unavailable Primary Care Provider Unavailabl e Encounter Details Date Type Department Care Team (Late st Contact Info) Description 12/14/2018 Transcribed Document [facility] [address] ProviderHelen [place] [address] Social History Tobacco Use Types Packs/Day Years Used Date Smoking Tobacco: Never Assessed Comments Unknown Sex and Gender Information Value Date Recorded Sex Assigned at Not on file Legal Sex Female 2:04 PM CDT Gender Identity Not on file Sexual Orientation Not on file documented as of this encounter Miscellaneous Notes * Cerner Conversion Note - Helen ProviderMD - 12/14/2018 3:38 PM 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 Name: BERNICE NAVARRETE/Sex: 1945 Female Med Rec #: [id number] Physician: ASHOK CHENG MD-SNU Financial #: [id number] Pt. Type: O Room/Bed: Admit/Disch: 12/14/18 11:04:00 - Institution: [facility] Main OR PostOp Case Times Entry 1 In PACU II 12/14/18 18:00:00 Ready for PACU II 12/14/18 18:20:00 Discharge Discharge from PACU 12/14/18 18:25:00 II Last Modified By: Jalyn Fermin RN 12/14/18 18:23:56 [facility] Main OR PostOp Case Times Audit 12/14/18 18:23:56 Superintendent Of Generation: RAMEZALR Modifier: RAMEZALR 1 <*> Discharge from PACU II 12/14/18 18:20:00 12/14/18 18:17:07 Superintendent Of Generation: RAMEZALR Modifier: RAMEZALR <+> 1 Ready for PACU II Discharge <+> 1 Discharge from PACU II Finalized By: Jalyn Fermin RN Document Signatures Signed By: Jalyn Fermin RN 12/14/18 18:17 Jalyn Fermin RN 12/14/18 18:24 Unfinalized History Date/Time Username Reason for Unfinalizing Freetext Reason for Unfinalizing 12/14/18 18:23 [place] Correct Documentation Electronically signed by Michelet [facility] Conversion Assistant Field Hockey Coach Cerner at 02/02/2023 12:19 PM CDT documented in this encounter Plan of Treatment Not on file documented as of this encounter Visit Diagnoses Not on filedocumented in this encounter
--- OUTSIDE RECORDS SUMMARY | 2024-08-28 15:59 | XMS_ITS | Encounter Summary ---
Author Organization [employer] Address [address] [place] [address] Care Team Providers Care Telegrapher Agent Name Role Phone Unavailable Primary Care Provider Unavailabl e Encounter Details Date Type Department Care Team (Late st Contact Info) Description 12/14/2018 Transcribed Document [facility] [place] [facility] [place] [address] ProviderHelen MD [address] [place] [address] Social History Tobacco Use Types Packs/Day Years Used Date Smoking Tobacco: Never Assessed Comments Unknown Sex and Gender Information Value Date Recorded Sex Assigned at Not on file Legal Sex Female 2:04 PM CDT Gender Identity Not on file Sexual Orientation Not on file documented as of this encounter Miscellaneous Notes * Cerner Conversion Note - Helen ProviderMD - 12/14/2018 6:20 PM 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 ? Change your dressing as told by [...] or a bad smell. Medicines ??? Take tgxx-jcy-ftjbjaj and prescription medicines only as told by [...] urine clear or pale yellow. ? Take zbby-ize-zolggjf or prescription medicines. ? Eat foods that [...] 04/21/2006 Document Revised: 05/18/2017 Document Reviewed: 03/19/2017 [employer] Interactive Patient Education ? 2017 [employer] Pharmacology General Anesthesia, Adult, Care After These instructions [...] activities are safe for you. ??? Take oadn-qmn-afpiqsx and prescription medicines only as told by [...] 01/08/2002 Document Revised: 03/06/2017 Document Reviewed: 09/15/2016 [employer] Interactive Patient Education ? 2017 [employer]. documented in this encounter Plan of Treatment Not on file documented as of this encounter Visit Diagnoses Not on filedocumented in this encounter
--- OUTSIDE RECORDS SUMMARY | 2024-08-28 15:59 | XMS_ITS | Encounter Summary ---
Author Organization [employer] Address [address] [place] [address] Care Team Providers Care Technician'S Helper Name Role Phone Unavailable Primary Care Provider Unavailabl e Encounter Details Date Type Department Care Team (Late st Contact Info) Description 12/14/2018 Transcribed Document [facility] [place] [address] ProviderHelen MD [address] [place] [address] Social History Tobacco Use Types Packs/Day Years Used Date Smoking Tobacco: Never Assessed Comments Unknown Sex and Gender Information Value Date Recorded Sex Assigned at Not on file Legal Sex Female 2:04 PM CDT Gender Identity Not on file Sexual Orientation Not on file documented as of this encounter Miscellaneous Notes * Cerner Conversion Note - Helen ProviderMD - 12/14/2018 6:20 [place] [address] Patient Copy Patient Information: Name: BERNICE NAVARRETE Current Date: 12/14/2018 18:20:06 : 1945 Patient [address]: [address] [place] [address] Patient Attending Physician: ASHOK CHENG MD-SNU Primary Care Provider: MUSTAPHA EASTMAN MD-[facility] Primary Care Provider Discharge Diagnosis: Weight on Admission: 167 lb, 8 oz Comment: Follow-up Instructions: With: Address: When: ASHOK CHENG [address] [facility] [place] [id number] [facility] (1) 3:15 PM Comments: Appointment has been made Discharge Instructions: Diet after Discharge: Regular diet as tolerated, Do not drink any alcoholic beverages Activity after Discharge: As tolerated, Rest and relax today, No strenuous activities, No heavy lifting over 10 pounds Driving after Discharge: Other: Do not drive for 5 days or while taking narcotics Showering/Bathing:No tub bathing, soaking, or swimming, Other: May shower tomorrow. Wound/Incision Care after Discharge: Keep operative site/wound site clean and dry Wound/Incision Care after Discharge Comment: Follow [facility]out from [facility] Neurosurgery. Immunizations Documented During Stay: No Immunizations Found [...] and water are not available, use hand tea plantation worker. ? Change your dressing as told by [...] or a bad smell. Medicines ??? Take dxul-gmk-yniygzl and prescription medicines only as told by [...] urine clear or pale yellow. ? Take lcji-zxt-jkkwuwp or prescription medicines. ? Eat foods that [...] 04/21/2006 Document Revised: 05/18/2017 Document Reviewed: 03/19/2017 [employer] Interactive Patient Education ? 2017 [employer]. General Anesthesia, Adult, Care After These instructions [...] activities are safe for you. ??? Take akec-tih-lbaazxu and prescription medicines only as told by [...] 01/08/2002 Document Revised: 03/06/2017 Document Reviewed: 09/15/2016 [employer]Friend[employer] Wager App Interactive Patient Education ? 2017 [employer]. Medication Leaflets: acetaminophen and hydrocodone (a SEET a MIN oh fen and long droe KOE done) Hycet, Lorcet, [place], Verdrocet, Vicodin, Xodol, Zamicet What is the [...] may report side effects to FDA at 7-803-RGW-2140. What other drugs will affect acetaminophen and [...] affect acetaminophen and hydrocodone, including prescription and uwgv-uyr-istllkv medicines, vitamins, and herbal products. Not all [...] to ensure that the information provided by [employer]. ('[employer]') is accurate, up-to-date, and complete, but no guarantee is made to that effect. Drug information contained herein may be time sensitive. [employer] information has been compiled for use by healthcare practitioners and consumers in the [place] and therefore [employer] does not warrant that uses outside of the [place] are appropriate, unless specifically indicated otherwise. [employer] drug information does not endorse drugs, diagnose patients or recommend therapy. [employer] drug information is an informational resource designed [...] effective or appropriate for any given patient. [employer] does not assume any responsibility for any aspect of healthcare administered with the aid of information [employer] provides. The information contained herein is not intended to cover all possible uses, directions, precautions, warnings, drug interactions, allergic reactions, or adverse effects. If you have questions about the drugs you are taking, check with your doctor, nurse or pharmacist. Copyright 4190-7405 [employer]. Version: 15.02. Revision Date: 08/20/2018. cyclobenzaprine (benedicto henriquez) Marcos, Lala Pac with Cyclobenzaprine, Fexmid What is the [...] may report side effects to FDA at 0-869-VGL-7659. What other drugs will affect cyclobenzaprine? Using [...] drugs may affect cyclobenzaprine, including prescription and poja-ffh-edkuebl medicines, vitamins, and herbal products. Not all [...] to ensure that the information provided by [facility]. ('[employer]') is accurate, up-to-date, and complete, but no guarantee is made to that effect. Drug information contained herein may be time sensitive. [employer] information has been compiled for use by healthcare practitioners and consumers in the [place] and therefore [employer] does not warrant that uses outside of the [place] are appropriate, unless specifically indicated otherwise. [employer] drug information does not endorse drugs, diagnose patients or recommend therapy. [employer] drug information is an informational resource designed [...] effective or appropriate for any given patient. [facility] does not assume any responsibility for any aspect of healthcare administered with the aid of information [facility] provides. The information contained herein is not intended to cover all possible uses, directions, precautions, warnings, drug interactions, allergic reactions, or adverse effects. If you have questions about the drugs you are taking, check with your doctor, nurse or pharmacist. Copyright 3207-6771 [employer]. Version: 5.01. Revision Date: 07/11/2018. CIGARETTE SMOKING: The facts are clear, cigarette smoking will shorten your life. Smoking can cause many illnesses along the way. As a healthcare provider, we recommend that you stop smoking. Assistance with quitting is available by contacting 9-354-DOOT-NOW. This is a free resource providing counseling, [...] Be sure to sign up for the [employer] patient portal, which gives you 08/05 access to your medical information ??? including these discharge instructions ??? using your computer, smartphone, or tablet. Just go to [employer] to get started. Questions? Call . [facility] would like to thank you for allowing us to assist you with your healthcare needs. ROSALBA Parker CATHERINE M, (or school admissions representative) have received the above patient education materials/instructions and have verbalized understanding: Patient Signature _ Date/Time Patient Sewing Machines Salesperson Signature (if needed) Date/Time Clinician/Hospital Sewing Machines Salesperson Signature (if needed) Date/Time documented in this encounter Plan of Treatment Not on file documented as of this encounter Visit Diagnoses Not on filedocumented in this encounter
--- OUTSIDE RECORDS SUMMARY | 2024-08-28 16:00 | XMS_ITS | Referral Summary ---
Author Organization [facility] [place] [address] Phone Care Team Providers Care Habilitation Assistant Name Role Phone Riley Ogden MD Unavailable [phone] Ramonita Anguiano MD Unavailable [phone] Nabil Gilbert MD Primary Care Provider [phone] Allergies Active Allergy Reactions Criticality Noted Date Comments Cephalexin Rash 01/04/2018 Medications gabapentin (NEURONTIN) 300 mg Oral Capsule Take 300 mg by mouth 2 times daily. 6 Active omeprazole (PRILOSEC) 40 mg Oral Capsule, Delayed Release(E.C.) Take 40 mg by mouth daily. 6 Active HYDROcodone-anne marie taminophen (NORCO) 5-325 mg Oral Tablet Take 1 Tab by mouth every 6 hours as needed. 6 Active fUROsemide (LASIX) 20 mg Oral Tablet Take 20 mg by mouth daily. 6 Active ferrous sulfate 325 mg (65 mg iron) Oral Tablet Take 325 mg by mouth daily. 6 Active traZODone (DESYREL) 50 mg Oral Tablet Take 50 mg by mouth nightly. 6 Active sertraline (ZOLOFT) 100 mg Oral Tablet Take 100 mg by mouth nightly. 6 Active atorvastatin (LIPITOR) 10 mg Oral Tablet Take 10 mg by mouth nightly. 6 Active aspirin 81 mg Oral Tablet, Chewable Take by mouth daily. Active losartan-hydroc hlorothiazide (HYZAAR) 100-25 mg Oral Tablet Take 1 Tab by mouth daily. Active vitamin D3-folic acid 5,000 unit- 1 mg Oral Tablet Take 5,000 Units by mouth daily. Active cyanocobalamin (VITAMIN B-12) 1,000 mcg Oral Tablet Take 1,000 mcg by mouth daily. Active oxyCODONE (ROXICODONE) 5 mg Oral Tablet Take 1-2 Tabs by mouth every 4 hours as needed for Pain. 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 01/05/2018 PMB (postmenopausal bleeding) 01/05/2018 Social History Tobacco Use Types Packs/Day Years Used Date Smoking Tobacco: Former Cigarettes Q uit: 2009 Smokeless Tobacco: Never Alcohol Use Standard Drinks/Week Comments No 0 (1 standard drink = 0.6 oz pur e alcohol) Sexually Active Control Partners Comments Not Currently Comments No Sex and Gender Information Value Date Recorded Sex Assigned at Not on file Legal Sex Female 4:50 AM EDT Gender Identity Not on file Sexual Orientation Not on file Occupation Industry Job Start Date Job End Date retired Not on file Not on file Not on file Last Filed Vital Signs Vital Sign Reading Time Taken Comments Blood Pressure 156/84 05/25/2018 2:20 PM EDT Pulse 69 05/25/2018 2:20 PM EDT Temperature 36.7 ??C (98.1 ??F) 05/25/2018 2:20 PM ED T Respiratory Rate 20 05/25/2018 2:20 PM EDT Oxygen Saturation 94% 04/04/2018 12:20 PM EDT Inhaled Oxygen Concentration - - Weight 76 kg (167 lb 8 oz) 05/25/2018 2:20 PM ED T Height 160 cm (5' 3 ) 04/12/2018 10:34 AM EDT Body Mass Index 29.67 04/12/2018 10:34 AM EDT Plan of Treatment Not on file Insurance Advance Directives For more information, please contact: [phone] Documents on File Type Date Recorded Patient Notch Grinder Expl anation Power of Photoflash Powder Mixer 03/27/2018 8:22 AM Advance Directives/DNR 01/09/2018 6:18 PM Care Teams Habilitation Assistant Relationship Specialty Start Date End Date Nabil Gilbert MD [facility] [address] [place] [address] PCP - General Family Medicine 12/29/17 Riley Ogden MD [address] [place] [address] [place] [address] Consulting Physician Obstetrics & Gynecology-Gynecologic Oncology 12/22/17 Ramonita Anguiano MD [address] [place] [address] [place] [id number] Referring Physician Obstetrics & Gynecology 12/21/17
--- OUTSIDE RECORDS SUMMARY | 2024-08-28 16:00 | XMS_ITS | Encounter Summary ---
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 [address] Riley Ogden MD [address] [place] [address] [place] [address] DAVINCI ROBOTIC TOTAL HYSTERECTOMY Surgery Details Date/Time Status Location OR Service Patient Class Case Class Case Type Trauma Case? 04/04/2018 7:30 AM Posted [facility] _[facility] B Gynecology Oncology Same Day Surgery N/A Panel 1 Procedure LRB Anes Op Region Wound Class Comments DAVINCI ROBOTIC TOTAL HYSTERECTOMY Bilateral General Clean Contaminated ROBOTIC ASSISTED TOTAL HYSTERECTOMY BILATERAL SALPINGO-OOPHORECTO MY Surgeon Surgeon Role Service Panel Riley Ogden MD Primary Gynecology Oncology 1 Special Needs cr documented in this encounter Social History Tobacco Use Types Packs/Day Years [...] file Not on file Not on file documented as of this encounter Last Filed Vital Signs Vital Sign Reading Time Taken Comments Blood Pressure 125/47 04/04/2018 10:00 AM EDT Pulse 67 04/04/2018 10:00 AM EDT Temperature 36.9 ??C (98.5 ??F) 04/04/2018 9:43 AM ED T Respiratory Rate 16 04/04/2018 10:00 AM EDT Oxygen Saturation 94% 04/04/2018 10:00 AM EDT Inhaled Oxygen Concentration - - Weight 76.9 kg (169 lb 9 oz) 04/04/2018 5:57 AM EDT Height 160 cm (5' 3 ) 04/04/2018 5:57 AM EDT Body Mass Index 30.04 04/04/2018 5:57 AM EDT documented in this encounter Discharge Instructions * Discharge Instructions* Breana Aguilar RN - 04/04/2018 10:55 AM EDT Images from the original note were not included. Discharge Instructions after Robotic / Laparoscopic Surgery You can expect the following ??? You will be in the hospital usually just overnight; some patients are able to go home the same day. ??? You should be given a prescription for pain medication prior to leaving the hospital if needed.You may also take Ibuprofen (Advil) 400-600 mg every 4-6 hours. Only start Ibuprofen 2 days or moreafter surgery. You may take narcotic pain medication along with Ibuprofen. ??? Constipation- Your surgical procedure and pain medications may/can cause constipation. We recommend taking Colace or Miralax to relieve constipation ??? A small amount of vaginal bleeding is to be expected with a hysterectomy or other vaginal procedure. Bleeding should decrease in the days following surgery. Large amounts of bright red blood are not normal. Activity ??? You will want to take it easy when you get home from the hospital. Take it easy but make sure you are getting out of bed every day. ??? You may not drive while taking narcotic pain medication. ??? As you increase your activity you may have bright red spotting. This may indicate that you havedone too much. Relax the rest of the day. This bleeding should subside or turn to a pink or brown discharge. ??? Don???t drive until you are not taking narcotic pain medication and you feel like you can safely apply the brakes and wear a seat belt. Incision and Other Care ??? It is OK to shower; allow soapy water to run over your incision / bandage. Do not scrub. Pat dry. ??? You may have a small amount of clear or pink drainage from your incision. ??? You may have a small amount of redness around your incision. ??? Do not drink alcohol while taking pain medication. ??? Do not swim or take tub bath. ??? Start stool softeners such as Colace and / or Miralax daily per the bottle instructions starting the day after surgery and continue while on narcotics or until bowel moments is achieved post operatively. Stop if diarrhea occurs. It is acceptable to add 1 Tbsp of Milk of Magnesia if no bowel movement within 36-48 hours of surgery and repeat 1 Tbsp every 3-4 hours until bowel movement is achieved. When to Call ??? Increase abdominal pain ??? Nausea or vomiting ??? Diarrhea that does not go away ??? Fever greater than 101F ??? Signs of infection around the incision (redness, drainage, warmth) ??? Sudden chest pain or shortness of breath. [facility] Discharge Instructions - Following Surgery Best wishes are extended to you on behalf of [facility] as you are discharged. Because we are most concerned with your health, we suggest you carefully read and take an active role in your overall health and follow these instructions. 1. A responsible adult, 18 years or older must be in attendance following discharge. 2. Rest quietly today. 3. Drink liquids first, minimum 6 glasses water in first 24 hours. If no nausea in 1 hour, proceed with a light meal. 4. Do not drive or operate any machinery for a minimum of 24 hours or as instructed. 5. No alcoholic beverages for 24 hours. 6. Do not make any legal or important decisions for the next 24 hours. 7. Check temperature daily for 5 days, call your physician if greater than 101. 8. Notify your physician if any of these symptoms occur: rash, hives, difficulty breathing, or severe nausea & vomiting. 9. Contact your physician for questions concerning home medications. 10. If pain intensifies or pain unrelieved with pain medications as ordered, call your physician. 11. If physician is unavailable, go to the Emergency room You have received 1000mg of IV tylenol in the operating room at 6:20 . You have been prescribed pain medication which contains tylenol. Please do not take additional tylenol products while taking your prescribed pain medication. The maximum amount tylenol is 4000mg in a 24 hour period. Generic Instructions for Pain Medicine Some pain medicine may change the way you think and make judgments. You might not be able to do some things safely. Take your medicine as advised by your doctor if you have pain. DO NOT take them if you do not have pain unless your doctor advised you to. After you start the medicine and 8 hours after you stop, DO NOT: ?? Drive. ?? Use machines. ?? Use power tools. ?? Sign legal papers. HOME CARE Do not drink alcohol while taking pain medicines. Do not take sleeping pills while taking pain medicines. Do not take other medicines at the same time as pain medicines unless your doctor tells you it is okay to do so. IF YOUR PAIN MEDICINE IS A NARCOTIC: ?? Use a stool softener such as Metamucil if you cannot go the the bathroom. This can happen when you take certain pain medicines. ?? Eat more fruits and vegetables when you take your medicine. This may help you go to the bathroom. ?? You may get confused when taking your medicine. Write down when you take your medicine. ?? Before taking your next pill(s), look at the last time you took your pill(s). ?? Writing the times down will help you to not take too much (overdose). GET HELP IF: ?? Your medicine is not helping to relieve pain. ?? You throw up (vomiting) and/or have watery poop (diarrhea). ?? You notice belly pain that you did not have before. ?? You feel dizzy or pass out. ?? You feel you are having other problems that might be caused by your medicine. Document Released: 03/20/2009 ExitCare?? Patient Information ??2009 [employer]. You may have shoulder pain (right, left or both). This pain is from the gas placed in your abdomen to allow the physician to perform the surgical procedure. Walk around every 2 hours while awake (this will increase absorption). This gas will not be expelled via the rectum or by belching. It must bereabsorbed into your body. Your pain medication will not work for this type of pain you must move around. documented in this encounter Medications at Time of Discharge aspirin 81 mg Oral Tablet, Chewable Take by mouth daily. atorvastatin (LIPITOR) 10 mg Oral Tablet Take 10 mg by mouth nightly. 05/14/2016 cyanocobalamin (VITAMIN B-12) 1,000 mcg Oral Tablet Take 1,000 mcg by mouth daily. ferrous sulfate 325 mg (65 mg iron) Oral Tablet Take 325 mg by mouth daily. 03/08/2016 fUROsemide (LASIX) 20 mg Oral Tablet Take 20 mg by mouth daily. 07/08/2016 gabapentin (NEURONTIN) 300 mg Oral Capsule Take 300 mg by mouth 2 times daily. 05/14/2016 HYDROcodone-aceta minophen (NORCO) 5-325 mg Oral Tablet Take 1 Tab by mouth every 6 hours as needed. 05/13/2016 losartan-hydrochl orothiazide (HYZAAR) 100-25 mg Oral Tablet Take 1 Tab by mouth daily. omeprazole (PRILOSEC) 40 mg Oral Capsule, Delayed Release(E.C.) Take 40 mg by mouth daily. 05/14/2016 oxyCODONE (ROXICODONE) 5 mg Oral Tablet Take 1-2 Tabs by mouth every 4 hours as needed for Pain. 25 Tab 04/04/2018 sertraline (ZOLOFT) 100 mg Oral Tablet Take 100 mg by mouth nightly. 05/14/2016 traZODone (DESYREL) 50 mg Oral Tablet Take 50 mg by mouth nightly. 05/14/2016 vitamin D3-folic acid 5,000 unit- 1 mg Oral Tablet Take 5,000 Units by mouth daily. documented as of this encounter Ordered Prescriptions Prescription Sig Dispense Quantity Refills Last Filled Start Date End Date oxyCODONE (ROXICODONE) 5 mg Oral Tablet Take 1-2 Tabs by mouth every 4 hours as needed for Pain. 25 Tab 04/04/2018 documented in this encounter Discharge Disposition Disposition Code Departure Means Destination Home or Self Care Wheelchair Home documented in this encounter H&P Notes * Riley Ogden MD - 04/04/2018 7:25 AM EDT The patient was seen and examined by me. I agree with the exam findings and plan as outlined above. Riley Ogden MD Source Note - Unknown, Unknown - 03/30/2018 11:29 AM EDT documented in this encounter Procedure Notes * Riley Ogden MD - 04/04/2018 1:24 PM EDT DATE OF OPERATION: 04/04/2018 PREOPERATIVE DIAGNOSIS: Carcinoma in situ of the cervix. POSTOPERATIVE DIAGNOSIS: Carcinoma in situ of the cervix. PROCEDURE: Robotic total laparoscopic hysterectomy and bilateral salpingo-oophorectomy. SURGEON: Riley Ogden MD. ANESTHESIA: General with endotracheal intubation. ESTIMATED BLOOD LOSS: 20 mL INDICATIONS: Ms. Verde is a 72-year-old who has had abnormal Pap. She had a biopsy confirming DEL 2 to 3. Unfortunately, her exam was consistent with a cervix that was absolutely flushed with theupper vagina, precluding conization or other small measure for definitive management, as such it was my recommendation that we perform hysterectomy. FINDINGS: On entering the peritoneal cavity, there was no evidence of ascites. Peritoneal surfaces were smooth, the external contour of the uterus was unremarkable, as were both tubes and ovaries bilaterally. Upper abdominal anatomy is visualized, which was similarly unremarkable. PROCEDURE DETAILS: After the patient was appropriately consented, she was taken to the operating room where she was transferred to the table in a dorsal supine position. General anesthesia was then induced with endotracheal intubation. The patient was transferred to a dorsal lithotomy position using adjustable Cuco stirrups and prepped and draped in the usual sterile fashion. We began by trying to visualize the cervix with Hernandez retractors. We could just barely get a tenaculum on the anterior lip of the cervix; however, the cervical os was completely obliterated and the cervix itself could not be well delineated, as such we elected to place a suture into the cervical stroma but did not place uterine manipulator. Instead an EEA sizer was placed vaginally to help delineate the upper vagina later in the procedure. Gloves were changed, and we proceeded above where a bit of local anesthetic was placed supraumbilically. Skin incision, followed and a Veress needle was introduced in the peritoneal cavity with correct placement ascertained using a saline flush. A CO2 pneumoperitoneum was established and a 12 mm bladeless trocar advanced into the pneumoperitoneum. Immediate visualization with the camera demonstrated no damage to underlying structures. We subsequently placed 3 Robotic ports following the typical routine of local anesthetic, followed by skin incision, followed by placement of port under direct visualization. A 12 mm assistant accounting manager port was similarly placed. After all our ports in place, the patient was put into steep Trendelenburg position, we attempted to move the bowels into the upper abdomen; however, the patient's anatomy made this fairly challenging. Ultimately, we brought the robot into place and docked it. I scrubbed out and then proceeded to the surgeon's console where the remaining procedure took place. We began by elevating the uterus with blunt graspers. There were some physiologic adhesions along the rectosigmoid, which were taken down with electrocautery. The broad ligament was then opened and the ureter identified. We could not adequately delineate the anatomy without the bowel overriding our surgical field and so an assistant accounting manager kept the bowel out of harm's way with a blunt grasper. A window was then made in the medial leaf of the broad ligament and the ovarian vessels were triply coagulated with bipolar and transected with the monopolar lamberto.We proceeded under the mesosalpinx fold of peritoneum with electrocautery dissection to mobilize the adnexa. We then changed our grasp of the uterine cornua and with the uterus on stretch coagulated and transected the round ligament and proceeded anteriorly across the vesicouterine fold of peritoneum to create a bladder flap. The uterine vessels were then skeletonized and triply coagulated but not yet transected. We proceeded to the right where again the overriding bowel was significant consider ation. With some difficulty, we were able to delineate the right ovarian vasculature. The broad ligament was opened and the ureter was identified. The IP ligament was isolated, triply coagulated withbipolar and transected with the monopolar lamberto. We proceeded under the mesosalpinx fold of peritoneum with electrocautery to mobilize the adnexa and then skeletonized anteriorly across the vesicouterine fold of peritoneum to complete the bladder flap. The uterine vessels on the right were then skeletonized, triply coagulated and then transected with the bipolar and then the monopolar lamberto. Weproceeded across the cardinal ligaments with sequential cardenas and cuts with the bipolar and monopolar lamberto until we reflected the cardinal ligament laterally below the anticipated level of hysterectomy as defined using the EEA sizer to delineate the upper vagina. We proceeded to the left where a similar dissection was performed. At this point, the posterior vagina was opened with electrocautery circumferentially to 3 and 9 o'clock with the monopolar lamberto. We then proceeded anteriorly and opened from 12 o'clock to 3 o'clock and then from 12 o'clock to 9 o'clock again taking down the vaginal mucosa being careful to completely excise all cervical tissue. Once this was completed, the specimen was delivered through the vagina and we proceeded with closure. The cuff was closed using a #1 running Quill suture in the typical simple running technique. Care was taken to incorporate adequate bites of mucosa and peritoneum with the passage of the suture and then once we reached the opposite angle the suture was run back past the midline to anchor itself. The suture was trimmed and the pelvis was then irrigated with a suction billet shearer and hemostasis was identified. We elected at this point to proceed with closure. The pneumoperitoneum was evacuated and the robot undocked. The 12 mm portsites were reapproximated with endoscopically guided sutures of 0 Vicryl in a simple interrupted closure technique. With the fascia closed all the remaining ports were removed and the Pneumoperitoneum evacuated. Skin sites were reapproximated with 4-0 Vicryl in subcuticular fashion. and skin glue was placed. The patient tolerated her procedure well. Sponge, needle, and instrument counts were correct x2. The patient was taken to recovery in stable condition. Riley Ogden M.D. By: Hermelindo Job ID: [id number] Doc ID: [id number] * Riley Ogden MD - 04/04/2018 9:33 AM EDT [facility] OPERATIVE/PROCEDURE NOTE China Verde April [birth year], 2020 Body mass index is 30.04 kg/m??. 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] PROCEDURE(S): Procedure(s): ROBOTIC ASSISTED TOTAL HYSTERECTOMY BILATERAL SALPINGO-OOPHORECTOMY SURGEON(S): Surgeon(s) and Role: * Riley Ogden MD - Primary SHORER(S): SA Laura ANESTHESIA: General SPECIMENS: ID Type Source Tests Collected by Time Destination 1 : Uterus, Cervix, Bilateral fallopian tubes and ovaries Tissue Uterus PATHOLOGY TISSUE REQUEST Riley Ogden MD 04/04/2018 0855 ESTIMATED BLOOD LOSS: 20 ml FINDINGS: grossly nl ut/cvx/tbes/ovaries DISPOSITION/POST PROC COURSE: PACU- home # [id number] Riley Ogden MD Date: 04/04/2018 documented in this encounter Nursing Notes * Michelle Ochoa RN - 04/04/2018 1:20 PM EDT Pt ambulated to bathroom with steady gait. Voided without difficulty. * Chelsey Kern CNA - 03/30/2018 9:05 AM EDT Left another VM for Polly Stevens nurse regarding EKG and clearance * Chelsey Kern CNA - 03/29/2018 8:39 AM EDT Faxed clearance request and EKG tracing to Dr. Stevens office. Left VM for His nurse Polly to make sure they've received it. * Chelsey Kern CNA - 03/28/2018 7:32 AM EDT Refaxed clearance request and EKG tracing to Dr. Stevens office documented in this encounter Miscellaneous Notes * H&P Update - Riley Ogden MD - 04/04/2018 1:24 PM EDT China Verde Chief complaint: I am ready History of present illness: China Verde is a 72 y.o. presenting for planned surgery. She isscheduled for hysterectomy due to cervical dysplasia and anatomy which precludes cone biopsy. She is without complaint Past Medical History: Diagnosis Date ??? Anemia ??? Anxiety ??? Arthritis ??? Back pain ??? Carotid artery occlusion has some blockages- treating with meds ??? Encounter for blood transfusion 2012 ??? GERD (gastroesophageal reflux disease) ??? HTN (hypertension) ??? Hyperlipidemia ??? Irritable bowel syndrome Past Surgical History: Procedure Laterality Date ??? CARPAL TUNNEL RELEASE Bilateral ??? CATARACT REMOVAL Bilateral ??? CERVIX BIOPSY N/A 01/10/2018 COLD KNIFE CONIZATION OF CERVIX; Surgeon: Riley Ogden MD; Location: [facility] MAIN OR; Service: Gynecology Oncology ??? HEMORRHOID SURGERY ??? TUBAL LIGATION No current facility-administered medications for this encounter. Current Outpatient Prescriptions Medication Sig Dispense Refill ??? aspirin 81 mg Oral Tablet, Chewable Take by mouth daily. ??? atorvastatin (LIPITOR) 10 mg Oral Tablet Take 10 mg by mouth nightly. ??? cyanocobalamin (VITAMIN B-12) 1,000 mcg Oral Tablet Take 1,000 mcg by mouth daily. ??? ferrous sulfate 325 mg (65 mg iron) Oral Tablet Take 325 mg by mouth daily. ??? fUROsemide (LASIX) 20 mg Oral Tablet Take 20 mg by mouth daily. ??? gabapentin (NEURONTIN) 300 mg Oral Capsule Take 300 mg by mouth 2 times daily. ??? HYDROcodone-acetaminophen (NORCO) 5-325 mg Oral Tablet Take 1 Tab by mouth every 6 hours as needed. ??? losartan-hydrochlorothiazide (HYZAAR) 100-25 mg Oral Tablet Take 1 Tab by mouth daily. ??? omeprazole (PRILOSEC) 40 mg Oral Capsule, Delayed Release(E.C.) Take 40 mg by mouth daily. ??? sertraline (ZOLOFT) 100 mg Oral Tablet Take 100 mg by mouth nightly. ??? traZODone (DESYREL) 50 mg Oral Tablet Take 50 mg by mouth nightly. ??? vitamin D3-folic acid 5,000 unit- 1 mg Oral Tablet Take 5,000 Units by mouth daily. ??? oxyCODONE (ROXICODONE) 5 mg Oral Tablet Take 1-2 Tabs by mouth every 4 hours as needed for Pain. (Patient not taking: Reported on 04/12/2018) 25 Tab 0 Allergies Allergen Reactions ??? Keflex [Cephalexin] Rash Social History Social History ??? Marital status: Spouse name: N/A ??? Number of children: N/A ??? Years of education: N/A Occupational History ??? retired Social History Main Topics ??? Smoking status: Former Smoker Quit date: 2009 ??? Smokeless tobacco: Never Used ??? Alcohol use No ??? Drug use: No ??? Sexual activity: Not Currently Other Topics Concern ??? None Social History Narrative ??? None Family History Problem Relation Age of Onset ??? Diabetes Father ??? Breast Cancer Maternal Aunt 84 ??? Cancer Maternal Aunt type unknown ??? Cancer Maternal Aunt type unknown ??? Anesth Problems Neg Hx OB History Para Term AB Living 4 4 4 0 0 4 SAB TAB Ectopic Multiple Live Births 0 0 0 0 4 Obstetric Comments 4 vaginal deliveries. Abnormal pap smear 10 years ago and again most recent. Started periods 14 years ROS: The patient is unlimited in her activities of daily living. No weight loss, fevers, or night sweats. No JENSEN, numbness, or tingling. No visual or hearing changes. No chest pain, shortness of breath, or palpitations. She denies nausea, vomiting, constipation, or diarrhea. No abdominal or pelvic pain. No vaginal bleeding or discharge. No dysuria, hematuria. No swelling, rashes, or skin changes. No myalgias or arthralgias. BP 162/78 (BP Location: Left arm, Patient Position: Semi Fowlers) Pulse 68 Temp 97 ??F (36.1 ??C) (Forehead) Resp 22 Ht 5' 3 (1.6 m) Wt 169 lb 9 oz (76.9 kg) SpO2 94% ? No BMI 30.04 kg/m?? Exam: General: Well-developed and well-nourished, comfortable and pleasant, alert and oriented Skin- no lesions/rashes HEENT: EOMI, mouth and oropharynx without lesions, hearing grossly normal Neck: No lymphadenopathy or thyromegaly Heart: Regular rate and rhythm, no murmurs Lungs: Clear to auscultation bilaterally, no rales or wheezes Abdomen: Soft and non-tender, no masses or organomegaly Extremities: Nontender, no edema, motor intact Pelvic: External genitalia are normal female. Vaginal mucosa is without lesions or pathologic discharge. Cervix is small and without lesions, flush with upper vagina Uterus small, mid position, mobile, non-tender Adnexae without lesions or masses, non-tender Rectovaginal confirms, normal tone Assessment and Plan: proceed with robotic TLH/BSO. Operative procedure and decision making discussed in detail, patient had opportunity to get all her questions answered satisfactorily. Risks discussed including bleeding, infection, and potential for injury to bowel/bladder/ureters. Informed consent given. documented in this encounter Plan of Treatment Not on file documented as of this encounter Procedures Procedure Name Priority Date/Time Associated Diagnosis Comments SCANNED RHYTHM STRIPS 04/06/2018 1:49 AM EDT PATHOLOGY TISSUE REQUEST Routine 04/04/2018 8:55 AM EDT Carcinoma in situ of cervix, unspecified location DAVINCI ROBOTIC TOTAL HYSTERECTOMY 04/04/2018 7:32 AM EDT Carcinoma in situ of cervix, unspecified location Special Needs cr BB HISTORY CHECK STAT 04/04/2018 6:08 AM EDT ABORH STAT 04/04/2018 6:08 AM EDT documented in this encounter Results * SCANNED RHYTHM STRIPS (04/06/2018 1:49 AM EDT) Anatomical Region Laterality Modality Other 04/06/2018 1:49 AM EDT us Unknown Unknown IMG ECG ORDERABLES Final Result * PATHOLOGY TISSUE REQUEST (04/04/2018 8:55 AM EDT) CASE REPORT Surgical Pathology ?Case: [id number] ? Authorizing Provider: ??Riley Ogden MD ? Collected: ? 04/04/2018 0855 ? Ordering Location: ? [facility] ?Received: ?04/04/2018 1252 ? Pathologist: ? Evelyn, Tami Santana, ? MD ? Specimen: ?Uterus, Uterus, Cervix, Bilateral fallopian tubes and ovaries ? 04/09/2018 2:46 PM EDT [facility] FINAL DIAGNOSIS Uterus, cervix, bilateral fallopian tubes and ovaries, hysterectomy with bilateral salpingo-oophorect abril: - Cervix - atrophic changes; Negative for squamous dysplasia or malignancy. - Endometrium - atrophic endometrium, benign endometrial polyp. - Right and left ovaries - no significant histopathologic abnormality. - Right and left fallopian tubes - no significant histopathologic abnormality, paratubal cyst, left. 04/09/2018 2:46 PM EDT [facility] ENT Deeper levels on each block were performed. Additionally p16 immunostains were performed. No squamous dysplasia or malignancy is identified. Atrophic change is seen. P16 immunostains are negative. 04/09/2018 2:46 PM EDT [facility] GROSS DESCRIPTION Received in formalin labeled with the patient? s name and ? uterus, cervix, bilateral fallopian tubes and ovaries? is a 6.4 x 4.5 x 2.3 cm pear-shaped uterus (trimmed weight 33 grams) with attached bilateral adnexa. The serosa is black-white, smooth. The purple-young granular exocervix measures up to 2.3 cm with an eccentric mildly strictured 0.5 x 0.1 cm os. The stromal resection margin is black-white, moderately indurated (possible cautery effect, inked black). The endocervical canal is black-white, unremarkable. The 2.4 x 2 cm endometrial cavity is surfaced with black-white endometrium, which averages 0.1 cm in thickness with a 0.7 x 0.6 x 0.3 cm white-pink sessile polyp in the anterior left fundus. The black trabecular myometrium measures up to 1.1 cm in thickness and is unremarkable. The lobular yellow-black right ovary is 2.3 x 1.2 x 1 cm with multiple corpora albicantia ranging from 0.2 to 0.7 cm. The attached right purple-black fimbriated fallopian tube is 5.2 x 0.6 x 0.5 cm and appears to have been previously ligated but is otherwise unremarkable with a pinpoint lumen throughout. The attached lobular yellow-black left ovary is 2.2 x 1.4 x 1.3 cm with a black-white cut surface with a calcified 0.7 cm in greatest dimension corpus albicans. The attached purple-black fimbriated fallopian tube is 2.7 x 0.6 x 0.5 cm and appears to have been previously ligated but is otherwise unremarkable with a pinpoint lumen throughout. Carpenter Mate sections are submitted as follows: A1-A5 = Entire cervix radially sectioned and submitted in a clockwise manner. A6-A7 = Entire sessile polyp from anterior fundus and manufacturers service representative full thickness section of unremarkable anterior endomyometrium also submitted in A7. A8 = Carpenter Mate posterior endomyometrium. A9 = Carpenter Mate right ovary. A10 = Carpenter Mate right fallopian tube to include entire bisected fimbriated end. A11 = Carpenter Mate left ovary (submitted following decalcification). A12 = Carpenter Mate left fallopian tube to include entire bisected fimbriated end. /TE 04/09/2018 2:46 PM EDT [facility] MICROSCOPIC DESCRIPTION Microscopic examination is performed and the findings corroborate the diagnosis. 04/09/2018 2:46 PM EDT [facility] EMBEDDED IMAGES 04/09/2018 2:46 PM EDT [facility] Tissue UTERINE STRUCTURE / Unknown 04/04/2018 8:55 AM EDT 04/04/2018 12:52 PM EDT us Riley Ogden MD PATHOLOGY ORDERABLES Final Re sult [facility] [address] [place] [address] * BB HISTORY CHECK (04/04/2018 6:08 AM EDT) BB HISTORY CHECK (1) Previous History OK 04/04/2018 6:27 AM EDT [facility] Blood VENOUS BLOOD / Unknown Venipuncture / Unknown 04/04/2018 6:08 AM EDT 04/04/2018 6:15 AM EDT Riley Ogden MD BLOOD BANK ORDERABLES Final R esult 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 , Pre-op (Holding/SDS Meds) Given 04/04/2018 6:20 AM EDT 1,000 mg bupivacaine-EPINEPHrine 0.5 %-1:200,000 injection ONCE PRN, 1 dose, Starting on Mon04/04/18 at 0911, Until Mon04/04/18 at 0911, Intra-op Given 04/04/2018 9:11 AM EDT 11 mL famotidine (PEPCID) injection 20 mg 20 mg, Intravenous, PREPROCEDURE, 1 dose, Starting on Mon04/03/18 at 0838, Until Mon04/04/18 at 0621, pre-op, Slow IV push (greater than 2 minutes). To be given in SDS/Pre-op Hold Use 10 mL normal saline to dilute and administer famotidine IV, Pre-op (Holding/SDS Meds) Given 04/04/2018 6:21 AM EDT 20 mg gabapentin (NEURONTIN) tablet 600 mg 600 mg, Oral, ONCE PREPROCEDURE, 1 dose, On Mon04/03/18 at 0845, Pre-op (Holding/SDS Meds) Given 04/04/2018 6:20 AM EDT 600 mg lactated Ringers infusion Intravenous, at 100 mL/hr, PREPROCEDURE CONTINUOUS, Starting on Mon04/03/18 at 0838, Until Mon04/04/18 at 0837, To be given in SDS/Pre-op Hold, Pre-op (Holding/SDS Meds) New Bag 04/04/2018 9:34 AM EDT ondansetron (ZOFRAN) injection 4 mg 4 mg, Intravenous, PRN, 1 dose, Starting on Mon04/04/18 at 0939, Until Mon04/04/18 at 1729, Nausea, PACU ondansetron (ZOFRAN-ODT) disintegrating tablet 8 mg 8 mg, Oral, PRN, 1 dose, Starting on Mon04/04/18 at 0939, Until Mon04/04/18 at 1729, Nausea, Dissolve in mouth, PACU scopolamine (TRANSDERM-SCOP) 1 mg over 3 days 1 Patch 1 Patch, Transdermal, ONCE, 1 dose, On Mon04/04/18 at 0645, Remove old patch at time of administration. Transderm-Scop 1.5mg patch delivers scopolamine 1 mg per 72 hours, Administer over 24 Hours, Pre-op (Holding/SDS Meds) Patch Applied 04/04/2018 6:52 AM EDT 1 Patch Right Ear documented in this encounter Active and Recently Administered Medications Times are shown in EDT. Scheduled Medication Order 04/02/2018 04/03/2018 04/04/2018 acetaminophen (TYLENOL) tablet 1,000 mg (COMPLETED) 1,000 mg, Oral, ONCE PREPROCEDURE, 1 dose, On Mon04/03/18 at 0845, Maximum adult dose of acetaminophen is 4000 mg from all sources in 24 hours. , Pre-op (Holding/SDS Meds) 0620 (Given - Provid er: Jayna Waite RN) gabapentin (NEURONTIN) tablet 600 mg (COMPLETED) 600 mg, Oral, ONCE PREPROCEDURE, 1 dose, On Mon04/03/18 at 0845, Pre-op (Holding/SDS Meds) 0620 (Given - Provid er: Jayna Waite RN) levOFLOXacin in dextrose 5% (LEVAQUIN) IVPB 500 mg (COMPLETED)(Linked Group 1) 500 mg, Intravenous, ONCE PREPROCEDURE, 1 dose, On Mon04/04/18 at 0645, Administer over 60 Minutes, Administer within 60 minutes of procedure, Pre-op (Antibiotic) 0727 (Given - Provid er: Maria Del Rosario Dasilva CRNA) metroNIDAZOLE (FLAGYL) IVPB 500 mg (COMPLETED)(Linked Group 1) 500 mg, Intravenous, ONCE PREPROCEDURE, 1 dose, On Mon04/04/18 at 0645, Administer over 30 Minutes, Administer 30 minutes prior to procedure. VESICANT , Pre-op (Antibiotic) 0742 (Given - Provid er: Maria Del Rosario Dasilva CRNA) scopolamine (TRANSDERM-SCOP) 1 mg over 3 days 1 Patch 1 Patch, Transdermal, ONCE, 1 dose, On Mon04/04/18 at 0645, Remove old patch at time of administration. Transderm-Scop 1.5mg patch delivers scopolamine 1 mg per 72 hours, Administer over 24 Hours, Pre-op (Holding/SDS Meds) 0652 (Patch Applied - Provider: Michelle Ochoa RN)1324 (Due: Patch Removed - Provider: Automatic Discharge Provider - Comment: Time automatically adjusted from order being discontinued) PRN Medication Order 04/02/2018 04/03/2018 04/04/2018 bupivacaine-EPINEPHrine 0.5 %-1:200,000 injection (COMPLETED) ONCE PRN, 1 dose, Starting on Mon04/04/18 at 0911, Until Mon04/04/18 at 0911, Intra-op 0911 (Given - Provid er: Riley Ogden MD) famotidine (PEPCID) injection 20 mg (COMPLETED) 20 mg, Intravenous, PREPROCEDURE, 1 dose, Starting on Mon04/03/18 at 0838, Until Mon04/04/18 at 0621, pre-op, Slow IV push (greater than 2 minutes). To be given in SDS/Pre-op Hold Use 10 mL normal saline to dilute and administer famotidine IV, Pre-op (Holding/SDS Meds) 0621 (Given - Provid er: Jayna Waite RN) fentaNYL (SUBLIMAZE) injection 25 mcg 25 mcg, Intravenous, EVERY 5 MIN PRN, 4 doses, Starting on Mon04/04/18 at 0939, Until Mon04/04/18 at 1729, Pain, initial pain, For initial pain. Maximum dose not to exceed 100 mcg., PACU lactated Ringers infusion Intravenous, at 100 mL/hr, PREPROCEDURE CONTINUOUS, Starting on Mon04/03/18 at 0838, Until Mon04/04/18 at 0837, To be given in SDS/Pre-op Hold, Pre-op (Holding/SDS Meds) 0603 (New Bag - Prov ider: Lucinda Beard RN)0727 (New Bag - Provider: Maria Del Rosario Dasilva CRNA)0934 (New Bag - Provider: Maria Del Rosario Dasilva CRNA)1315 (Stopped - Provider: Breana Aguilar RN) morphine injection 2 mg 2 mg, Intravenous, EVERY 5 MIN PRN, Starting on Mon04/04/18 at 0939, Until Mon04/04/18 at 1729, Pain, Do not exceed 20 mg in one hour unless otherwise ordered by the Anesthesia Coordinator For pain unrelieved by fentanyl, PACU ondansetron (ZOFRAN) injection 4 mg(Linked Group 2) 4 mg, Intravenous, PRN, 1 dose, Starting on Mon04/04/18 at 0939, Until Mon04/04/18 at 1729, Nausea, PACU ondansetron (ZOFRAN-ODT) disintegrating tablet 8 mg(Linked Group 2) 8 mg, Oral, PRN, 1 dose, Starting on Mon04/04/18 at 0939, Until Mon04/04/18 at 1729, Nausea, Dissolve in mouth, PACU oxyCODONE (ROXICODONE) immediate release tablet 5 mg 5 mg, Oral, PRN, 2 doses, Starting on Mon04/04/18 at 0939, Until Mon04/04/18 at 172, Pain, If patient has received IV acetaminophen (OFIRMEV): Give 5 mg if patient able to take oral medication. Reassess pain in 20 minutes and give additional 5 mg if pain not improved., PACU oxyCODONE-acetaminophen (PERCOCET) 5-325 mg per tablet 1 Tab 1 Tablet, Oral, PRN, 2 doses, Starting on Mon04/04/18 at 0939, Until Mon04/04/18 at 172, Pain, Give 1 tablet if patient able to take oral medication. Reassess pain in 20 minutes and give 2nd tablet if pain not improved. If patient has received IV acetaminophen (OFIRMEV), give oxycodone (ROXICODONE). Maximum adult dose of acetaminophen is 4000 mg from all sources in 24 hours. , PACU promethazine (PHENERGAN) injection 6.25-12.5 mg 6.25-12.5 mg, Intravenous, PRN, 2 doses, Starting on Mon04/04/18 at 0939, Until Mon04/04/18 at 172, Nausea, For nausea unrelieved by Zofran. Begin with lowest dose unless otherwise directed. Give remainder of dose if nausea unrelieved in 20 minutes. Not to exceed 25 mg in one hour unless otherwise ordered by Anesthesia Coordinator. VESICANT , PACU Linked Groups Order Group 1: levOFLOXacin in dextrose 5% (LEVAQUIN) IVPB 500 mg (COMPLETED)Jump to med 500 mg, Intravenous, ONCE PREPROCEDURE, 1 dose, On Mon04/04/18 at 0645, Administer over 60 Minutes, Administer within 60 minutes of procedure, Pre-op (Antibiotic) And metroNIDAZOLE (FLAGYL) IVPB 500 mg (COMPLETED)Jump to med 500 mg, Intravenous, ONCE PREPROCEDURE, 1 dose, On Mon04/04/18 at 0645, Administer over 30 Minutes, Administer 30 minutes prior to procedure. VESICANT , Pre- op (Antibiotic) Group 2: ondansetron (ZOFRAN) injection 4 mgJump to med 4 mg, Intravenous, PRN, 1 dose, Starting on Mon04/04/18 at 0939, Until Mon04/04/18 at 1729, Nausea, PACU Or ondansetron (ZOFRAN-ODT) disintegrating tablet 8 mgJump to med 8 mg, Oral, PRN, 1 dose, Starting on Mon04/04/18 at 0939, Until Mon04/04/18 at 1729, Nausea, Dissolve in mouth, PACU documented in this encounter Orders Medications Ordered That Deniz ht Not Have Been Administered Count Last Ordered Date First Ordered Date fentaNYL (SUBLIMAZE) injection 25 mcg 1 morphine injection 2 mg 1 04/04/2018 ondansetron (ZOFRAN) injection 4 mg 1 04/04 ondansetron (ZOFRAN-ODT) dis integrating tablet 8 mg 1 04/04/2018 oxyCODONE (ROXICODONE) immed iate release tablet 5 mg 1 04/04/2018 oxyCODONE-acetaminophen (PER COCET) 5-325 mg per tablet 1 Tab 1 04/04/2018 promethazine (PHENERGAN) inj ection 6.25-12.5 mg 1 04/04/2018 lactated Ringers infusion 1 04/03/2018 levOFLOXacin in dextrose 5% (LEVAQUIN) IVPB 500 mg 1 04/03/2018 metroNIDAZOLE (FLAGYL) IVPB 500 mg 1 2017 Nursing Count Last Ordered Date First Orde red Date NURSING COMMUNICATION 4 04/04/2018 PHARM VTE PROPH NON-CANDIDATE 1 04/04/2018 VERIFY INFORMED CONSENT 1 04/04/2018 documented in this encounter Additional Health Concerns Assessment Noted Time A fall risk assessment has been complete d for the patient 12/11/2017 7:56 AM EST documented as of this encounter Care Teams Division Sales Manager Relationship Specialty Start Date End Date Nabil Gilbert MD [facility] [address] [place] [id number] PCP - General Family Medicine 12/29/17 Riley Ogden MD [address] [place] [address] [place] [address] Consulting Physician Obstetrics & Gynecology-Gynecologic Oncology 12/22/17 Ramonita Anguiano MD [address] [place] [address] [place] [address] Referring Physician Obstetrics & Gynecology 12/21/17 documented as of this encounter
--- OUTSIDE RECORDS SUMMARY | 2024-08-28 16:00 | XMS_ITS | Encounter Summary ---
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 [address] Riley Ogden MD [address] [place] [address] [place] [address] Preop testing (Primary Dx); Essential hypertension; Carcinoma in situ of cervix, unspecified location Discharge Disposition: Home or Self Care Social History Tobacco Use Types Packs/Day Years [...] Sign Reading Time Taken Comments Blood Pressure 138/79 01/10/2018 9:39 AM EDT Pulse 57 01/10/2018 9:39 AM EDT Temperature 36.1 ??C (97 ??F) 01/10/2018 9:23 AM EDT Respiratory Rate 16 01/10/2018 9:39 AM EDT Oxygen Saturation 96% 01/10/2018 9:39 AM EDT Inhaled Oxygen Concentration - - Weight 78.2 kg (172 lb 6 oz) 01/10/2018 5:59 AM EDT Height 160 cm (5' 3 ) 01/10/2018 5:59 AM EDT Body Mass Index 30.53 01/10/2018 5:59 AM EDT documented in this encounter Discharge Instructions * Discharge Instructions* Riley Ogden MD - 01/10/2018 8:29 AM EDT Discharge Instructions after Cone Biopsy You can expect the following ??? It is normal to experience some staining/spotting or bleeding after this procedure. Sometimes the discharge may resemble brown/black debris. This is normal. ??? You may experience some cramping after the procedure but this usually does not last more than afew days. You may take acetaminophen (Tylenol) 650 mg or Ibuprofen (Advil) 400-600 mg every 4-6 hours as needed. ??? It is normal to experience increase in vaginal bleeding approximately 5-7 days following the procedure. If bleeding is heavier than a menstrual period, then contact the office for further instruction. Activity ??? Please do not get in a swimming pool, hot tub or tub baths for at least 2 weeks after the procedure. ??? Do not put anything in the vagina including tampons or have sexual intercourse. ??? You may resume activities such as work, light house work, grocery shopping 1-2 days after your procedure. Delay any strenuous activities such as heavy exercise and house work for 1-2 additional days. When to call ??? Heavy bleeding. Bleeding greater than your menstrual period. ??? Fever greater than 101F ??? Foul smelling vaginal discharge ??? Worsening pain or any other concerns. +++++++++++++++++++++++++++++++++++++++++++++++++++++++++++++++++++ [facility] Discharge Instructions - Following Anesthesia We appreciate the opportunity to care for you today! Here are a few reminders as you head home: ?? A responsible adult, 18 years or older must be in attendance until tomorrow morning. ?? Rest quietly today. ?? May resume usual diet as tolerated or as directed by your surgeon. ?? Do not drive or operate any machinery until tomorrow morning or as instructed. ?? Do not make any legal or important decisions for the next 24 hours. ?? Do not drink alcoholic beverages or take sleeping pills for 24 hours unless otherwise directed. ?? If you received a nerve block for post-operative pain control, protect your blocked arm/leg. It is numb. Carefully pad your limb to prevent pressure sores and other injuries. Be careful with applying cold/warm to the blocked limb. Numbness will alter the sensation of the limb and could damage your skin if you cannot correctly feel the temperature. ?? If you have questions or concerns regarding your anesthesia experience, please call our office at . Get Well Soon! [facility] +++++++++++++++++++++++++++++++++++++++++++++++++++++++++++++++++++ documented in this encounter Medications at Time of Discharge aspirin 81 mg Oral Tablet, Chewable Take by mouth daily. atorvastatin (LIPITOR) 10 mg Oral Tablet Take 10 mg by mouth nightly. 05/14/2016 ferrous sulfate 325 mg (65 mg iron) Oral Tablet Take 325 mg by mouth daily. 03/08/2016 fUROsemide (LASIX) 20 mg Oral Tablet Take 20 mg by mouth daily. 07/08/2016 gabapentin (NEURONTIN) 300 mg Oral Capsule Take 300 mg by mouth 2 times daily. 05/14/2016 HYDROcodone-acetam inophen (NORCO) 5-325 mg Oral Tablet Take 1 Tab by mouth every 6 hours as needed. 05/13/2016 losartan-hydrochlo rothiazide (HYZAAR) 100-25 mg Oral Tablet Take 1 Tab by mouth daily. omeprazole (PRILOSEC) 40 mg Oral Capsule, Delayed Release(E.C.) Take 40 mg by mouth daily. 05/14/2016 sertraline (ZOLOFT) 100 mg Oral Tablet Take 100 mg by mouth nightly. 05/14/2016 traZODone (DESYREL) 50 mg Oral Tablet Take 50 mg by mouth nightly. 05/14/2016 documented as of this encounter Discharge Disposition Disposition Code Departure Means Destination Home or Self Half-Way documented in this encounter H&P Notes * Jarett Jean-Baptiste MD - 01/10/2018 7:23 AM EDT China Verde is a 72 y.o. with DEL 3 on recent endocervical curettage with positive p16 staining and postmenopausal bleeding. She is here today for cold knife cone biopsy and dilation and curettage. Vitals: 01/10/18 0559 BP: 135/74 Pulse: 54 Resp: 18 Temp: 96.2 ??F (35.7 ??C) SpO2: 94% There have been no changes in her medical history since she was last seen in the office. ?? All questions have been answered. ?? Patient is ready for the OR when seen by Dr. Ogden. ?? 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 year old female patient who presents today for surgical treatment of the above problem. The patient feels well and has no current complaints or concerns. No history of adverse reaction to anesthesia in the past. The patient has limited past medical history as listed below that is s table on current medications. History & Physical Past Medical History: Diagnosis Date ??? Anemia ??? Anxiety ??? Arthritis ??? Back pain ??? Carotid artery occlusion has some blockages- treating with meds ??? Encounter for blood transfusion 2012 ??? GERD (gastroesophageal reflux disease) ??? HTN (hypertension) ??? Hyperlipidemia ??? Irritable bowel syndrome Past Surgical History: Procedure Laterality Date ??? CARPAL TUNNEL RELEASE ??? CATARACT REMOVAL ??? HEMORRHOID SURGERY ??? TUBAL LIGATION No current facility-administered medications on file prior to encounter. Current Outpatient Prescriptions on File Prior to Encounter Medication Sig Dispense Refill ??? atorvastatin (LIPITOR) 10 mg Oral Tablet Take 10 mg by mouth nightly. ??? ferrous sulfate 325 mg (65 mg iron) Oral Tablet Take 325 mg by mouth daily. ??? fUROsemide (LASIX) 20 mg Oral Tablet Take 20 mg by mouth daily. ??? gabapentin (NEURONTIN) 300 mg Oral Capsule Take 300 mg by mouth 2 times daily. ??? HYDROcodone-acetaminophen (NORCO) 5-325 mg Oral Tablet Take 1 Tab by mouth every 6 hours as needed. ??? omeprazole (PRILOSEC) 40 mg Oral Capsule, Delayed Release(E.C.) Take 40 mg by mouth daily. ??? sertraline (ZOLOFT) 100 mg Oral Tablet Take 100 mg by mouth nightly. ??? traZODone (DESYREL) 50 mg Oral Tablet Take 50 mg by mouth nightly. Allergies Allergen Reactions ??? Keflex [Cephalexin] Rash [...] activity: Not Currently Other Topics Concern ??? Not on file Social History Narrative ??? No narrative on file Family History Problem Relation Age of Onset ??? Diabetes Father ??? Breast Cancer Maternal Aunt 84 ??? Cancer Maternal Aunt type unknown ??? Cancer Maternal Aunt type unknown ??? Anesth Problems Neg Hx Review of Systems REVIEW OF SYSTEMS: CONSTITUTIONAL: Denies: fever, chills, weakness ALLERGIES: Denies: urticaria, angioedema ENT: Denies: sore throat, nasal congestion, nasal discharge CARDIOVASCULAR: Denies: chest pain, dyspnea on exertion, palpitations RESPIRATORY: Denies: cough, shortness of breath, wheezing GI: Denies: abdominal pain, nausea, vomiting, diarrhea NEURO: Denies: dizzy/vertigo, headache, focal weakness, numbness/tingling MUSCULOSKELETAL: Denies: back pain, joint swelling, muscle weakness As above and all other relevant systems are negative. Vitals: 01/10/18 0559 BP: 135/74 Pulse: 54 Resp: 18 Temp: 96.2 ??F (35.7 ??C) SpO2: 94% Physical Exam General: No acute distress. Neuro: alert. oriented Eyes: pupils equal. Extra-ocular muscles intact Mouth: Oral mucosa moist. Nose: midline. Good air movement Neck: supple. Chest: symmetric excursion with respiration. Respirations unlabored and regular. CTA B Heart: Regular rate and rhythm w/o R/G/M, no bruits Abdomen: soft, non-tender, non-distended, +bowel sounds Extremities: 2+ pulses upper and lower extremities bilaterally, no edema Relevant Labs and Imaging reviewed. 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 year old female patient who presents today for surgical treatment of the above problem. The patient feels well and has no current complaints or concerns. No history of adverse reaction to anesthesia in the past. The patient has limited past medical history as listed below that is s table on current medications. History & Physical Past Medical History: Diagnosis Date ??? Anemia ??? Anxiety ??? Arthritis ??? Back pain ??? Carotid artery occlusion has some blockages- treating with meds ??? Encounter for blood transfusion 2012 ??? GERD (gastroesophageal reflux disease) ??? HTN (hypertension) ??? Hyperlipidemia ??? Irritable bowel syndrome Past Surgical History: Procedure Laterality Date ??? CARPAL TUNNEL RELEASE ??? CATARACT REMOVAL ??? HEMORRHOID SURGERY ??? TUBAL LIGATION No current facility-administered medications on file prior to encounter. Current Outpatient Prescriptions on File Prior to Encounter Medication Sig Dispense Refill ??? atorvastatin (LIPITOR) 10 mg Oral Tablet Take 10 mg by mouth nightly. ??? ferrous sulfate 325 mg (65 mg iron) Oral Tablet Take 325 mg by mouth daily. ??? fUROsemide (LASIX) 20 mg Oral Tablet Take 20 mg by mouth daily. ??? gabapentin (NEURONTIN) 300 mg Oral Capsule Take 300 mg by mouth 2 times daily. ??? HYDROcodone-acetaminophen (NORCO) 5-325 mg Oral Tablet Take 1 Tab by mouth every 6 hours as needed. ??? omeprazole (PRILOSEC) 40 mg Oral Capsule, Delayed Release(E.C.) Take 40 mg by mouth daily. ??? sertraline (ZOLOFT) 100 mg Oral Tablet Take 100 mg by mouth nightly. ??? traZODone (DESYREL) 50 mg Oral Tablet Take 50 mg by mouth nightly. Allergies Allergen Reactions ??? Keflex [Cephalexin] Rash [...] activity: Not Currently Other Topics Concern ??? Not on file Social History Narrative ??? No narrative on file Family History Problem Relation Age of Onset ??? Diabetes Father ??? Breast Cancer Maternal Aunt 84 ??? Cancer Maternal Aunt type unknown ??? Cancer Maternal Aunt type unknown ??? Anesth Problems Neg Hx Review of Systems REVIEW OF SYSTEMS: CONSTITUTIONAL: Denies: fever, chills, weakness ALLERGIES: Denies: urticaria, angioedema ENT: Denies: sore throat, nasal congestion, nasal discharge CARDIOVASCULAR: Denies: chest pain, dyspnea on exertion, palpitations RESPIRATORY: Denies: cough, shortness of breath, wheezing GI: Denies: abdominal pain, nausea, vomiting, diarrhea NEURO: Denies: dizzy/vertigo, headache, focal weakness, numbness/tingling MUSCULOSKELETAL: Denies: back pain, joint swelling, muscle weakness As above and all other relevant systems are negative. Vitals: 01/10/18 0559 BP: 135/74 Pulse: 54 Resp: 18 Temp: 96.2 ??F (35.7 ??C) SpO2: 94% Physical Exam General: No acute distress. Neuro: alert. oriented Eyes: pupils equal. Extra-ocular muscles intact Mouth: Oral mucosa moist. Nose: midline. Good air movement Neck: supple. Chest: symmetric excursion with respiration. Respirations unlabored and regular. CTA B Heart: Regular rate and rhythm w/o R/G/M, no bruits Abdomen: soft, non-tender, non-distended, +bowel sounds Extremities: 2+ pulses upper and lower extremities bilaterally, no edema Relevant Labs and Imaging reviewed. 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 POSTOPERATIVE DIAGNOSIS: DEL-3. PROCEDURE PERFORMED: Cold knife conization of cervix. SURGEON: Riley Ogden MD ROAD CLEANER: Dr. Jarett Jean-Baptiste, Resident. ANESTHESIA: General with LMA. ESTIMATED BLOOD LOSS: 10 mL. INDICATIONS: Ms. Verde is a 72-year-old with the above diagnosis. She also had some postmenopausal bleeding. Our plan was to perform a conization of the cervix and then subsequent dilation and curettage of the endometrium. Risks, benefits, and alternatives were discussed with her in advance. PROCEDURE DETAILS: After the patient was appropriately consented, she was taken to the operating room where she was transferred to the table in the dorsal supine position. General anesthesia was theninduced with LMA placement, and the patient was then transferred to a dorsal lithotomy position using adjustable Cuco stirrups. She was prepped and draped in the usual sterile fashion. We began by grasping the cervix with a single-tooth tenaculum. The vaginal anatomy was somewhat unusual in that there was a flattened posterior attachment of the vagina to the cervix where the cervix was essentially flush there. There were no discrete cervical lesions. The os was not particularly visualized. We put stay sutures at 3 and 9 o'clock and then coated the cervix and vagina in Lugol solution. There were no nonstaining areas appreciated. We then injected the cervical face clockwise with a bit of lidocaine with epinephrine. A cone-shaped incision was created with a scalpel, and the innermost aspectof this was grasped with an Allis clamp. The specimen was excised free with the Long scissors. We could not, at this point, define a cervical os. Despite attempts at probing and dilation with variousinstruments, no entrance into the endocervix or endometrium could be obtained. Given the patient's somewhat distorted anatomy and no clear entrance into the endometrium, it was felt that continued attempts at D and C would lead to an intolerable risk of uterine perforation and possible damage to surrounding structures, such as bladder and rectum. We, therefore, elected to stop trying. The cone bed was coagulated with a bit of electrocautery. A plug of Surgicel was placed into the cervical defect, and the stay sutures were tied across to help retain this. The procedure was then terminated. Thepatient tolerated her procedure well. Sponge, needle, and instrument counts were correct x2, and the patient was taken to recovery in stable condition. Reviewed by viola/SHANIA, 01/15/2018 Riley Ogden M.D. By: Hermelindo Job ID: [id number] Doc ID: [id number] * Riley Ogden MD - 01/10/2018 8:56 AM EDT [facility] OPERATIVE/PROCEDURE NOTE China Verde January 10, 2018 Body mass index is 30.53 kg/m??. 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 No gross cervical lesions. Cervix noted to be flushed with vagina posteriorly. Cervical os is stenotic, unable to make entry with small dilators. CKC performed with small biopsy taken as cervix would allow. OTHER INFO: Unable to perform dilation and curettage due to cervical stenosis and inability to locate cervical os. DISPOSITION/POST PROC COURSE: Patient will be discharged. Will discuss results and next steps in 1-2 weeks. Jarett Jean-Baptiste MD Date: 01/10/2018 # [id number] documented in this encounter Nursing Notes * Jeanie Aragon RN - 01/09/2018 12:35 PM EDT IS called to have EKG scanned into media today deleted, EKG is not for China Verde. [facility] called, they stated they sent the wrong EKG and the EKG for [place] was accidentally deletedprior to it being uploaded to the system. Will need to call patient to have EKG repeated today if she is available. Surgery is tomorrow. Called patient's dtr Katlyn and spoke to her regarding need to repeat her mother's EKG, surgery is in the morning. Dtr Katlyn states she is mom's sales route driver and they cannot go today and have EKG done, patient and dtr are choosing to do morning of surgery. I fully explained the risk of being cancelled if EKG is abnormal, they verbalized understanding. Katlyn states mom saw her digestion operator 2 weeks ago and he is happy with her current state of health. Will notify Dr. Ogden's office of this information and Aide [place]. I spoke to Juliet at Dr. Ogden's office. * Chelsey Kern CNA - 01/09/2018 11:23 AM EDT Called [facility] and requested copy of most recent EKG tracing she stated they do not havean EKG on her * Jeanie Aragon RN - 01/09/2018 9:06 AM EDT CXR faxed to Dr. Ogden's office [phone] * Whit Cortes RN - 01/05/2018 2:15 PM EDT Spoke with patient's daughter and she will take patient to [facility] on 01-08[facility]18 tohave pre op CBC, BMP, CXR and EKG done. Patient is a first case on 01-10-18. Daughter states it not be a hardship to go to [facility]. * Sydnee Garcia RN - 01/05/2018 10:03 AM EDT Per xu at dr dawkins office EKG and CXR can be done DOS - she is checking on other testing and clearance. * Sydnee Garcia RN - 01/04/2018 3:39 PM EDT Spoke to chelsey at dr dawkins office- she will talk to Dr Ogden in AM regarding preop testing and clearance. * Sydnee Garcia RN - 01/04/2018 3:17 PM EDT Spoke to Melanie at dr Hughes office in [place] and spoke to Marleen at Dr Stevens office in [place]- they will fax any recent testing * Sydnee Garcia RN - 01/04/2018 2:34 PM EDT Images from the original note were not included. PREPARING FOR YOUR SURGERY Date of Surgery 01/10/2018 Medications ??? Take the following pills with a small sip of water on the morning of surgery: Gabapentin, omeprazole ??? Aspirin, coumadin, blood thinners, ibuprofen, Plavix, fish oil, vitamin E, any supplements, andany anti-inflammatory products may be stopped as directed by your physician. Food, Drinks, Tobacco ?? For your safety, do not eat any food after midnight. This includes gum, mints, candy, chewing tobacco, and dip. You may consume water, Gatorade, Powerade, black coffee/tea (no milk, no cream/creamers, no sugar) up to two hours prior to your arrival time. No exceptions or substitutions may be made to these restrictions. ??? For tobacco users: do not smoke or use any type of tobacco products within 24 hours prior to surgery. Smoking will also slow your rate of healing, so it is advised that you do not smoke during the healing process. No beer, wine or alcohol 24 hours prior to surgery. ??? Review instructions provided by your surgeon. Reactor Technician ??? On the day of surgery, it is important to have a Reactor Technician, someone who is 18 years or older, to accompany you and remain in the facility for the duration of your surgery. This person should be available for the Perioperative Team, which includes your surgeon, to communicate with before, during and after your surgery. Someone should also remain with you for [address] you and make sure you are SAFE during that time. ??? A parent must accompany a child scheduled for surgery and plan to stay at the hospital until the child is discharged. If your takes a special type of nipple or baby bottle, please bring that with you. If your child has a favorite security item such as a blanket or a special toy, please feel free to bring that with you. ??? Please do not bring children with you to the hospital or surgery center. Hygiene ??? You may brush your teeth and gargle the morning of surgery. Do not swallow water. ??? Please shower the morning of surgery or the night before. Do not wear makeup (including eye makeup) lotion, powder or deodorant. Please do not shave the operative extremity or near the operative extremity. ??? Nail lebanese must be removed from operative extremity. Personal Items ??? Please wear simple, loose fitting clothing to the hospital. Do not bring valuables (money, credit cards, check books, etc.) or wear any jewelry on day of surgery. Remove all body piercings prior to arrival. All jewelry must be removed to avoid injury. We will not tape wedding rings/bands. ??? If you have dentures, they may be removed before going into the operating room, and we will provide a container for them. If you wear contact lenses or glasses, they must be removed. Please bringa case for them. ??? Do not remove hearing aids. You will wear them to surgery. Bring with You ?? If you have a Living Will and Durable Power of Oxygraph Operator for Healthcare, please bring a copy. ??? If having surgery at the hospital and you wear CPAP or BIPAP, please bring your mask and the machine settings (not the actual machine) with you to the hospital on the day of your procedure. The hospital will supply a machine to use during your hospital stay. ??? If your procedure is taking place at a surgery center, you must bring your CPAP or BIPAP with you. ??? If you wear oxygen, please bring it with you to use during your travel to and from the hospital. Following your admission, the hospital will supply oxygen for your use. Notify the Surgeon ??? For your safety, notify your surgeon if you develop any illness between now and surgery time --cough, cold, fever, sore throat, nausea, vomiting, etc. Questions or Concerns? If you have any questions or concerns, feel free to call the contact number. We want to make sure you feel safe and have an excellent experience while you are here. Same Day Surgery [facility] - [facility] at [phone]; Elena SDS: Patient Entrance 3A, take North elevator to 2nd floor documented in this encounter Plan of Treatment Not on file documented as of this encounter Procedures Procedure Name Priority Date/Time Associated Diagnosis Comments SCANNED EKG 01/14/2018 6:41 PM EDT SCANNED RHYTHM STRIPS 01/14/2018 6:41 PM EDT PATHOLOGY TISSUE REQUEST Routine 01/10/2018 8:03 AM EDT Carcinoma in situ of cervix, unspecified location CERVICAL CONIZATION/COLD KNIFE/BIOPSY DILATION AND CURETTAGE 01/10/2018 7:32 AM EDT Carcinoma in situ of cervix, unspecified location Special Needs AC EK EKG 12 LEAD Pre-Op 01/10/2018 5:58 AM EDT documented in this encounter Results * SCANNED EKG (01/14/2018 6:41 PM EDT) Anatomical Region Laterality Modality Other 01/14/2018 6:41 PM EDT us Unknown Unknown IMG ECG ORDERABLES Final Result * SCANNED RHYTHM STRIPS (01/14/2018 6:41 PM EDT) Anatomical Region Laterality Modality Other 01/14/2018 6:41 PM EDT us Unknown Unknown IMG ECG ORDERABLES Final Result * PATHOLOGY TISSUE REQUEST (01/10/2018 8:03 AM EDT) CASE REPORT Surgical Pathology ?Case: [id number] ? Authorizing Provider: ??Riley Ogden MD ? Collected: ? 01/10/2018 0803 ? Ordering Location: ? [facility] ?Received: ?01/10/2018 0850 ? Pathologist: ? Cari Lazo MD ? Specimen: ?Cervix, Cervical cone ? 01/11/2018 10:07 AM [facility]AL [facility]AGNOSIS Cervix, cone excision: - Benign cervical tissue focally lined by nondysplastic squamous epithelium. - Extensively denuded surface epithelium. - Negative for dysplasia. 01/11/2018 10:07 AM [facility] S DESCRIPTION Received in formalin and labeled with the patient? s name and ? cervical cone? is a 1.7 x 1.5 x 0.8 cm portion of pink-white rubbery tissue partially surfaced with shaggy red-brown mucosa with an eccentric strictured 0.1 cm in diameter os. The specimen is radially sectioned and entirely submitted in four cassettes in a clockwise manner. /TE 01/11/2018 10:07 AM [facility] MICROSCOPIC DESCRIPTION Microscopic examination is performed and the findings corroborate the diagnosis. 01/11/2018 10:07 AM [facility] EMB[facility]ED IMAGES 01/11/2018 10:07 AM EDT [facility] Tissue SPECIMEN FROM UTERINE CERVIX / Unknown 01/10/2018 8:03 AM EDT 01/10/2018 8:50 AM EDT us Riley Ogden MD PATHOLOGY ORDERABLES Final Re sult [facility] [address] [place] [address] * EK EKG 12 LEAD (01/10/2018 5:58 AM EDT) Anatomical Region Laterality Modality Electrocardiogra phy 01/10/2018 6:14 AM EDT Impressions 01/10/2018 7:50 PM EDT ? Stationary ECG Study ?[facility] ? Interpretive Statements ? SINUS BRADYCARDIA INDETERMINATE AXIS LOW QRS VOLTAGE IN PRECORDIAL LEADS INCOMPLETE RIGHT BUNDLE BRANCH BLOCK MODERATE T-WAVE ABNORMALITY, CONSIDER ANTEROLATERAL ISCHEMIA NO PRIOR ECG FOR COMPARISON Electronically Signed On 01-10-2018 19:50:16 EDT by Jonas Munoz MD Narrative Procedure Note Milo Munoz MD - 01/10/2018 IMPRESSION Stationary ECG Study [facility] Interpretive Statements SINUS BRADYCARDIA INDETERMINATE AXIS LOW QRS VOLTAGE IN PRECORDIAL LEADS INCOMPLETE RIGHT BUNDLE BRANCH BLOCK MODERATE T-WAVE ABNORMALITY, CONSIDER ANTEROLATERAL ISCHEMIA NO PRIOR ECG FOR COMPARISON Electronically Signed On 01-10-2018 19:50:16 EDT by Jonas Munoz MD us Riley Ogden MD IMG ECG ORDERABLES Final Resu lt documented in this encounter Visit Diagnoses Diagnosis Preop testing- Primary Preoperative examination, unspecified Essential hypertension Unspecified essential hypertension Carcinoma in situ of cervix, unspecified location documented in this encounter Administered Medications Inactive Administered Medications - up to 1 most recent administrations Medication Order MAR Action Action Date Dose Rate Site dimenhyDRINATE (DRAMAMINE) injection 12.5-25 mg 12.5-25 mg, Intravenous, PRN, 2 doses, Starting on Mon01/10/18 at 0821, Until Mon01/10/18 at 1514, Nausea, For nausea unrelieved by Zofran. Begin with lowest dose unless otherwise directed. Give remainder of dose if nausea unrelieved in 20 minutes., PACU famotidine (PEPCID) injection 20 mg 20 mg, Intravenous, PREPROCEDURE, 1 dose, Starting on Mon01/09/18 at 0940, Until Mon01/10/18 at 0618, pre-op, Slow IV push (greater than 2 minutes). To be given in SDS/Pre-op Hold Use 10 mL normal saline to dilute and administer famotidine IV, Pre-op (Holding/SDS Meds) Given 01/10/2018 6:18 AM EDT 20 mg fentaNYL (SUBLIMAZE) injection 25 mcg 25 mcg, Intravenous, EVERY 5 MIN PRN, 4 doses, Starting on Mon01/10/18 at 0821, Until Mon01/10/18 at 1514, Pain, For initial pain. Maximum dose not to exceed 100 mcg., PACU lactated Ringers infusion Intravenous, at 100 mL/hr, PREPROCEDURE CONTINUOUS, Starting on Mon01/09/18 at 0940, Until Mon01/10/18 at 0939, To be given in SDS/Pre-op Hold, Pre-op (Holding/SDS Meds) New Bag 01/10/2018 6:35 AM EDT 100 mL/hr morphine injection 2 mg 2 mg, Intravenous, EVERY 10 MIN PRN, Starting on Mon01/10/18 at 0821, Until Mon01/10/18 at 1514, Pain, Do not exceed 20 mg in one hour unless otherwise ordered by the Anesthesia Coordinator For pain unrelieved by fentanyl, PACU ondansetron (ZOFRAN) injection 4 mg 4 mg, Intravenous, PRN, 1 dose, Starting on Mon01/10/18 at 0821, Until Mon01/10/18 at 1514, Nausea, PACU ondansetron (ZOFRAN-ODT) disintegrating tablet 8 mg 8 mg, Oral, PRN, 1 dose, Starting on Mon01/10/18 at 0821, Until Mon01/10/18 at 1514, Nausea, Dissolve in mouth, PACU oxyCODONE (ROXICODONE) immediate release tablet 5 mg 5 mg, Oral, PRN, 2 doses, Starting on Mon01/10/18 at 0821, Until Mon01/10/18 at 1514, Pain, If patient has received IV acetaminophen (OFIRMEV): Give 5 mg if patient able to take oral medication. Reassess pain in 20 minutes and give additional 5 mg if pain not improved., PACU oxyCODONE-acetaminophen (PERCOCET) 5-325 mg per tablet 1 Tab 1 Tablet, Oral, PRN, 2 doses, Starting on Mon01/10/18 at 0821, Until Mon01/10/18 at 1514, Pain, Give 1 tablet if patient able to take oral medication. Reassess pain in 20 minutes and give 2nd tablet if pain not improved. If patient has received IV acetaminophen (OFIRMEV), give oxycodone (ROXICODONE). Maximum adult dose of acetaminophen is 4000 mg from all sources in 24 hours. , PACU documented in this encounter Historical Medications * This list may reflect changes made after this encounter. losartan-hydrochlo rothiazide (HYZAAR) 100-25 mg Oral Tablet Take 1 Tab by mouth daily. aspirin 81 mg Oral Tablet, Chewable Take by mouth daily. added in this encounter Active and Recently Administered Medications Times are shown in EDT. PRN Medication Order 01/08/2018 01/09/2018 01/10/2018 dimenhyDRINATE (DRAMAMINE) injection 12.5-25 mg 12.5-25 mg, Intravenous, PRN, 2 doses, Starting on Mon01/10/18 at 0821, Until Mon01/10/18 at 1514, Nausea, For nausea unrelieved by Zofran. Begin with lowest dose unless otherwise directed. Give remainder of dose if nausea unrelieved in 20 minutes., PACU famotidine (PEPCID) injection 20 mg (COMPLETED) 20 mg, Intravenous, PREPROCEDURE, 1 dose, Starting on Mon01/09/18 at 0940, Until Mon01/10/18 at 0618, pre-op, Slow IV push (greater than 2 minutes). To be given in SDS/Pre-op Hold Use 10 mL normal saline to dilute and administer famotidine IV, Pre-op (Holding/SDS Meds) 0618 (Given - Provid er: Jayna Griffiths RN) fentaNYL (SUBLIMAZE) injection 25 mcg 25 mcg, Intravenous, EVERY 5 MIN PRN, 4 doses, Starting on Mon01/10/18 at 0821, Until Mon01/10/18 at 1514, Pain, For initial pain. Maximum dose not to exceed 100 mcg., PACU lactated Ringers infusion Intravenous, at 100 mL/hr, PREPROCEDURE CONTINUOUS, Starting on Mon01/09/18 at 0940, Until Mon01/10/18 at 0939, To be given in SDS/Pre-op Hold, Pre-op (Holding/SDS Meds) 0635 (New Bag - Prov ider: Vale Sykes RN)0733 (Anesthesia Volume Adjustment - Provider: Jessica Snell CRNA)0828 (Anesthesia Volume Adjustment - Provider: Jessica Snell CRNA)0939 (Stopped - Provider: Juana Gonzalez RN) lidocaine-EPINEPHrine 1 %-1:100,000 injection (CANCELED) ONCE PRN, 1 dose, Starting on Mon01/10/18 at 0809, Until Mon01/10/18 at 0809, Intra-op 0809 (Given - Provid er: Riley Ogden MD) morphine injection 2 mg 2 mg, Intravenous, EVERY 10 MIN PRN, Starting on Mon01/10/18 at 0821, Until Mon01/10/18 at 1514, Pain, Do not exceed 20 mg in one hour unless otherwise ordered by the Anesthesia Coordinator For pain unrelieved by fentanyl, PACU ondansetron (ZOFRAN) injection 4 mg(Linked Group 1) 4 mg, Intravenous, PRN, 1 dose, Starting on Mon01/10/18 at 0821, Until Mon01/10/18 at 1514, Nausea, PACU ondansetron (ZOFRAN-ODT) disintegrating tablet 8 mg(Linked Group 1) 8 mg, Oral, PRN, 1 dose, Starting on Mon01/10/18 at 0821, Until Mon01/10/18 at 1514, Nausea, Dissolve in mouth, PACU oxyCODONE (ROXICODONE) immediate release tablet 5 mg 5 mg, Oral, PRN, 2 doses, Starting on Mon01/10/18 at 0821, Until Mon01/10/18 at 1514, Pain, If patient has received IV acetaminophen (OFIRMEV): Give 5 mg if patient able to take oral medication. Reassess pain in 20 minutes and give additional 5 mg if pain not improved., PACU oxyCODONE-acetaminophen (PERCOCET) 5-325 mg per tablet 1 Tab 1 Tablet, Oral, PRN, 2 doses, Starting on Mon01/10/18 at 0821, Until Mon01/10/18 at 1514, Pain, Give 1 tablet if patient able to take oral medication. Reassess pain in 20 minutes and give 2nd tablet if pain not improved. If patient has received IV acetaminophen (OFIRMEV), give oxycodone (ROXICODONE). Maximum adult dose of acetaminophen is 4000 mg from all sources in 24 hours. , PACU strong iodine (LUGOL'S) 5 % solution (CANCELED) ONCE PRN, 1 dose, Starting on Mon01/10/18 at 0810, Until Mon01/10/18 at 0810, Intra-op 0810 (Given - Provid er: Riley Ogden MD) Linked Groups Order Group 1: ondansetron (ZOFRAN) injection 4 mgJump to med 4 mg, Intravenous, PRN, 1 dose, Starting on Mon01/10/18 at 0821, Until Mon01/10/18 at 1514, Nausea, PACU Or ondansetron (ZOFRAN-ODT) disintegrating tablet 8 mgJump to med 8 mg, Oral, PRN, 1 dose, Starting on Mon01/10/18 at 0821, Until Mon01/10/18 at 1514, Nausea, Dissolve in mouth, PACU documented in this encounter Orders Medications Ordered That Deniz ht Not Have Been Administered Count Last Ordered Date First Ordered Date dimenhyDRINATE (DRAMAMINE) i njection 12.5-25 mg 1 01/10/2018 fentaNYL (SUBLIMAZE) injection 25 mcg 1 lidocaine-EPINEPHrine 1 %-1: 100,000 injection 1 01/10/2018 morphine injection 2 mg 1 01/10/2018 ondansetron (ZOFRAN) injection 4 mg 1 01/10 ondansetron (ZOFRAN-ODT) dis integrating tablet 8 mg 1 01/10/2018 oxyCODONE (ROXICODONE) immed iate release tablet 5 mg 1 01/10/2018 oxyCODONE-acetaminophen (PER COCET) 5-325 mg per tablet 1 Tab 1 01/10/2018 strong iodine (LUGOL'S) 5 % solution 1 12/15 documented in this encounter Additional Health Concerns Assessment Noted Time A fall risk assessment has been complete d for the patient 12/11/2017 7:56 AM EST documented as of this encounter Care Teams Front Counter Attendant Relationship Specialty Start Date End Date Nabil Gilbert MD [address] [place] [address] [address] [place] [address] PCP - General Family Medicine 12/29/17 Riley Ogden MD 1 [facility] [address] Consulting Physician Obstetrics & Gynecology-Gynecologic Oncology 12/22/17 Ramonita Anguiano MD [address] [place] [address] [place] [address] Referring Physician Obstetrics & Gynecology 12/21/17 documented as of this encounter
--- OUTSIDE RECORDS SUMMARY | 2024-08-28 16:00 | XMS_ITS | Encounter Summary ---
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 [address] Riley Ogden MD [address] [place] [address] [place] [address] Carcinoma in situ of cervix, unspecified location [...] Sign Reading Time Taken Comments Blood Pressure 162/78 04/04/2018 12:20 PM EDT Pulse 68 04/04/2018 12:20 PM EDT Temperature 36.1 ??C (97 ??F) 04/04/2018 11:07 AM EDT Respiratory Rate 22 04/04/2018 12:20 PM EDT Oxygen Saturation 94% 04/04/2018 12:20 [...] Sudden chest pain or shortness of breath. [facility] Discharge Instructions - Following Surgery Best wishes are extended to you on behalf of [facility] as you are discharged. Because we are [...] Document Released: 03/20/2009 ExitCare?? Patient Information ??2009 [employer]. You may have shoulder pain (right, left [...] port under direct visualization. A 12 mm staff physical therapy assistant port was similarly placed. After all our [...] overriding our surgical field and so an staff physical therapy assistant kept the bowel out of harm's way [...] pelvis was then irrigated with a suction cnc technician and hemostasis was identified. We elected at [...] Riley Ogden M.D. By: Hermelindo Job ID: [id number] Doc ID: [id number] * Riley Ogden MD - 04/04/2018 9:[address] [facility] OPERATIVE/PROCEDURE NOTE [place] April 04, 2018 Body mass index is 30.04 kg/m??. 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] PROCEDURE(S): Procedure(s): ROBOTIC ASSISTED TOTAL HYSTERECTOMY BILATERAL SALPINGO-OOPHORECTOMY SURGEON(S): Surgeon(s) and Role: * Riley Ogden MD - Primary SUPERANNUATION CLERK(S): SA Laura ANESTHESIA: General SPECIMENS: ID Type Source Tests Collected by Time Destination 1 : Uterus, Cervix, Bilateral fallopian tubes and ovaries Tissue Uterus PATHOLOGY TISSUE REQUEST Riley Ogden MD 04/04/2018 0855 ESTIMATED BLOOD LOSS: 20 ml FINDINGS: grossly nl ut/cvx/tbes/ovaries DISPOSITION/POST PROC COURSE: PACU- home # [id number] Riley Ogden MD Date: 04/04/2018 documented in [...] OF CERVIX; Surgeon: Riley Ogden MD; Location: [facility]; Service: Gynecology Oncology ??? HEMORRHOID [...] AM EDT) CASE REPORT Surgical Pathology ?Case: [id number] ? Authorizing Provider: ??Riley Ogden MD ? Collected: ? 04/04/2018 0855 ? Ordering Location: ? [facility] ?Received: ?04/04/2018 1252 ? Pathologist: ? Tami Rivas, ? MD ? Specimen: ?Uterus, Uterus, Cervix, Bilateral fallopian tubes and ovaries ? 04/09/2018 2:46 PM EDT [facility] FINAL DIAGNOSIS Uterus, cervix, bilateral fallopian tubes and ovaries, hysterectomy with bilateral salpingo-oophorect abril: - Cervix - atrophic changes; Negative for squamous dysplasia or malignancy. - Endometrium - atrophic endometrium, benign endometrial polyp. - Right and left ovaries - no significant histopathologic abnormality. - Right and left fallopian tubes - no significant histopathologic abnormality, paratubal cyst, left. 04/09/2018 2:46 PM EDT [facility] ENT Deeper levels on each block were performed. Additionally p16 immunostains were performed. No squamous dysplasia or malignancy is identified. Atrophic change is seen. P16 immunostains are negative. 04/09/2018 2:46 PM EDT [facility] GROSS DESCRIPTION Received in formalin labeled [...] otherwise unremarkable with a pinpoint lumen throughout. Gas Leak Tester sections are submitted as follows: A1-A5 = Entire cervix radially sectioned and submitted in a clockwise manner. A6-A7 = Entire sessile polyp from anterior fundus and artists' booking representative full thickness section of unremarkable anterior endomyometrium also submitted in A7. A8 = Gas Leak Tester posterior endomyometrium. A9 = Gas Leak Tester right ovary. A10 = Gas Leak Tester right fallopian tube to include entire bisected fimbriated end. A11 = Gas Leak Tester left ovary (submitted following decalcification). A12 = Gas Leak Tester left fallopian tube to include entire bisected fimbriated end. /TE 04/09/2018 2:46 PM EDT [facility] MICROSCOPIC DESCRIPTION Microscopic examination is performed and the findings corroborate the diagnosis. 04/09/2018 2:46 PM EDT [facility] EMBEDDED IMAGES 04/09/2018 2:46 PM EDT [facility] Tissue UTERINE STRUCTURE / Unknown 04/04/2018 8:55 AM EDT 04/04/2018 12:52 PM EDT us Riley Ogden MD PATHOLOGY ORDERABLES Final Re sult [facility] [address] [place] [id number] * BB HISTORY CHECK (04/04/2018 6:08 AM EDT) BB HISTORY CHECK (1) Previous History OK 04/04/2018 6:27 AM EDT [facility] Blood VENOUS BLOOD / Unknown Venipuncture / Unknown 04/04/2018 6:08 AM EDT 04/04/2018 6:15 AM EDT Riley Ogden MD BLOOD BANK ORDERABLES Final R esult [facility] [address] [address] * ABORH (04/04/2018 6:08 AM EDT) ABORH Int O POS 04/04/2018 6:5 2 AM EDT [facility] Blood VENOUS BLOOD / Unknown Venipuncture / Unknown 04/04/2018 6:08 AM EDT 04/04/2018 6:15 AM EDT us Riley Ogden MD BLOOD BANK ORDERABLES Final R esult Performing Organization Address City/[facility]/ZIP Co de Phone Number [facility] [address] [address] documented in this encounter Visit Diagnoses Diagnosis [...] Given 04/04/2018 6:20 AM EDT 1,000 mg famotidine (PEPCID) injection 20 mg 20 mg, [...] at 0939, Until Mon04/04/18 at 1729, Pain, If patient has received IV acetaminophen (OFIRMEV): Give 5 mg if patient able to take oral medication. Reassess pain in 20 minutes and give additional 5 mg if pain not improved., PACU oxyCODONE-acetaminophen (PERCOCET) 5-325 mg per tablet 1 Tab 1 Tablet, Oral, PRN, 2 doses, Starting on Mon04/04/18 at 0939, Until Mon04/04/18 at 1729, Pain, Give 1 tablet if patient able [...] at 0939, Until Mon04/04/18 at 1729, Nausea, For nausea unrelieved by Zofran. Begin [...] Count Last Ordered Date First Ordered Date bupivacaine-EPINEPHrine 0.5 %-1:200,000 injection 1 04/04/2018 fentaNYL (SUBLIMAZE) injection 25 mcg morphine injection 2 mg 1 04/04/2018 ondansetron [...] documented as of this encounter Care Teams Field Human Resources Manager Relationship Specialty Start Date End Date Nabil Gilbert MD [facility] [place] [address] PCP - General Family Medicine 12/29/17 Riley Ogden MD 1 [facility] [place] [address] Consulting Physician Obstetrics & Gynecology-Gynecologic Oncology 12/22/17 Ramonita Anguiano MD 1 [facility] [place] [address] Referring Physician Obstetrics & Gynecology 12/21/17 documented as of this encounter
--- OUTSIDE RECORDS SUMMARY | 2024-08-28 16:00 | XMS_ITS | Encounter Summary ---
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 SURGERY REQUEST COMMUNICATION ORDER Riley Villarreal MD [address] [place] [id number] Phone: tel: fax: Referral ID Status Reason Start Date Expiration Date Visits Re quested Visits Authorized [id number] Closed 03/01/2018 03/01/2019 1 1 Reason for Visit * Reason Comments Follow-up Pre-op visit Encounter Details Date Type Department Care Team (Latest Contact Info) Description 02/22/2018 10:32 AM EDT - 02/22/2018 11:59 PM EDT [place] [address] Riley Ogden MD [address] [place] [address] [place] [address] DEL III (cervical intraepithelial neoplasia grade III) with severe dysplasia (Primary Dx); PMB (postmenopausal bleeding) Discharge Disposition: Home or Self Care Social [...] Sign Reading Time Taken Comments Blood Pressure 115/63 02/22/2018 10:56 AM EDT Pulse 62 02/22/2018 10:56 AM EDT Temperature 36.6 ??C (97.8 ??F) 02/22/2018 10:56 AM E DT Respiratory Rate 20 02/22/2018 10:56 AM EDT Oxygen Saturation 95% 02/22/2018 10:56 AM EDT Inhaled Oxygen Concentration - - Weight 78.7 kg (173 lb 8 oz) 02/22/2018 10:56 AM EDT Height - - Body Mass Index 30.73 01/10/2018 5:59 AM EDT documented in this encounter Medications at Time [...] mg by mouth 2 times daily. 05/14/2016 HYDROcodone-acet aminophen (NORCO) 5-325 mg Oral Tablet Take 1 Tab by mouth every 6 hours as needed. 05/13/2016 losartan-hydroch lorothiazide (HYZAAR) 100-25 mg Oral Tablet Take 1 [...] Tablet Take 5,000 Units by mouth daily. estradiol (ESTRACE) 0.01 % (0.1 mg/gram) Vagl Cream Place 1 g vaginally daily for 30 days. 1 Tube 02/22/2018 8 documented as of this encounter Ordered Prescriptions Prescription Sig Dispense Quantity Refills Last Filled Start Date End Date estradiol (ESTRACE) 0.01 % (0.1 mg/gram) Vagl Cream Place 1 g vaginally daily for 30 days. 1 Tube 02/22/2018 8 documented in this encounter Discharge Disposition Disposition Code Departure Means Destination Home or Self Care documented in this encounter Progress Notes * Carmelita Deleon RN - 02/22/2018 10:[address] Ogden will call pt after he speaks to pathologist and determines if pt needs surgery. Pt would like to proceed with surgery if indicated. Post-op instructions reviewed with pt and her daughter,and printed copy included in AVS. * Riley Ogden MD - 02/22/2018 10:32 AM EDT China Verde 72 y.o. 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 Cervical bx per green ware caster (11 o'clock) is negative for dysplasia or malignancy.ECC shows fragments of squamous mucosa with DEL III, p16 positive. No endocervical epithelium present. 01/10/2018 Surgery [facility] (Dr Ogden) - benign cervical tissue focally lined by nondysplastic squamous epithelium, extensively denuded surface epithelium, negative for dysplasia. Subjective: feeling fine- no bleeding or pain. The patient is unlimited in her activities of daily living. No weight loss, fevers, or night sweats. No JENSEN, numbness, or tingling. No visual or hearing changes. No chest pain, shortness of breath, orpalpitations. She denies nausea, vomiting, constipation, or diarrhea. No abdominal or pelvic pain. No vaginal bleeding or discharge. No dysuria, hematuria. No swelling, rashes, or skin changes. No myalgias or arthralgias. Vitals: 02/22/18 1056 BP: 115/63 BP Location: Right arm Patient Position: Sitting Pulse: 62 Resp: 20 Temp: 97.8 ??F (36.6 ??C) TempSrc: Oral SpO2: 95% Weight: 173 lb 8 oz (78.7 kg) Exam: General: Well-developed and well-nourished, comfortable and [...] or masses, non-tender Rectovaginal confirms, normal tone Assessment/Plan: pt has recovered from cone- no DEL on specimen but limited. Cervix flush with upper vagina. Discussed obs vs hysterectomy- plan to hinge on review of dysplastic biopsy previously. Iftrue dysplasia- favor hyst. documented in this encounter Miscellaneous Notes * Patient Instructions - Carmelita Deleon RN - 02/22/2018 10:32 AM EDT Instrucciones de jo despu??s de la cirug??a eneida??arlyn / laparosc??pica Puede esperar lo siguiente Usted estar?? en el hospital por lo general anton la noche; Algunos pacientes son capaces de ir acasa el mismo d??a. Se le debe christine mai receta para el analg??sico antes de salir del hospital si esnecesario. Tambi??n puede masoud ibuprofeno (Advil) 400-600 mg cada 4-6 horas. Comience el ibuprofeno s??lo 2 d??as o m??s despu??s de la cirug??a. Usted puede masoud analg??sicos narc??ticos junto conibuprofeno. Constipaci??n- Martin procedimiento quir??rgico y medicamentos para el dolor pueden causar estre??imiento. Recomendamos masoud Colace o Miralax para aliviar el estre??imiento Mai michael??a cantidad de sangrado vaginal es de esperar con mai histerectom??a u otro procedimiento vaginal. El sangrado debe disminuir en los d??as posteriores a la cirug??a. Grandes cantidades de chio silvano brillante no son normales. Actividad Usted querr?? tomarlo con calma cuando llegue a casa desde el hospital. T??sun con calma, eladio aseg??rese de que usted se est?? levantando de la cama todos los d??as. Nopuede conducir mientras maria de jesus analg??sicos narc??ticos. A medida que aumenta martin actividad, puede tener manchas cerda brillantes. Minden puede indicar que usted jensen hecho demasiado. Rel??jennifer el shantel deld??a. Esta hemorragia debe disminuir o convertirse en mai descarga rosada o elle??n. No conduzca hasta que no est?? tomando analg??sicos narc??ticos y sienta que puede aplicar los frenos con seguridad y usar un cintur??n de seguridad. Incisi??n y otros cuidados Est?? barbara para ducharse; Permita queel agua jabonosa corra sobre martin incisi??n / vendaje. No frote. Seque. Usted puede tener mai michael??a cantidad de drenaje chetna o chaudhary de martin incisi??n. Es posible que tenga mai michael??a cantidad de enrojecimiento alrededor de la incisi??n. No grace alcohol mientras maria de jesus analg??sicos. No nadar o masoud ba??era. Comience los ablandadores de heces tales nicole Colace y / o Miralax diariamente por las instrucciones de la botella que comienzan el d??a despu??s de la cirug??a y contin??e mientras que ennarc??ticos o hasta que los momentos del intestino se alcancen despu??s de funcionamiento. Pare si ocurre diarrea. Es aceptable agregar 1 cucharada de Leche de Magnesia si no hay movimiento intestinal dentro de las 36-48 horas de la cirug??a y repetir 1 cucharada cada 3-4 horas hasta que se logre el movimiento intestinal. Cu??ndo llamar Aumentar el dolor abdominal N??useas o v??mitos Diarrea que no desaparece Fiebre superior a 101F Los signos de infecci??n alrededor de la incisi??n (enrojecimiento, drenaje, calor) S??bito dolor en el pecho o falta de Discharge Instructions after Robotic / Laparoscopic Surgery [...] Sudden chest pain or shortness of breath. 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 ONC SURGERY REQUEST COMMUNICATION ORDER ABD ENEIDA 1 03/01/2018 documented in this encounter Additional Health Concerns Assessment Noted Time A fall risk assessment has been complete d for the patient 12/11/2017 7:56 AM EST documented as of this encounter Care Teams Lone Lead Lineman Relationship Specialty Start Date End Date Nabil Gilbert MD [address] [place] [address] [address] [place] [address] PCP - General Family Medicine 12/29/17 Riley Ogden MD [address] [place] [address] Consulting Physician Obstetrics & Gynecology-Gynecologic Oncology 12/22/17 Ramonita Anguiano MD [address] [place] [address] [place] [address] Referring Physician Obstetrics & Gynecology 12/21/17 documented as of this encounter
--- OUTSIDE RECORDS SUMMARY | 2024-08-28 16:00 | XMS_ITS | Encounter Summary ---
Author Organization [place] [address] Care Team Providers Care Processing Lead Name Role Phone Riley Ogden MD Unavailable [phone] Ramonita Anguiano MD Unavailable [phone] Nabil Gilbert MD Primary Care Provider [phone] Reason for Visit * Auth/Cert/Inpt Specialty Diagnoses / Procedures Referred By Juan malone Referred To Contact Diagnoses Carcinoma in situ of cervix, unspecified location Carcinoma in situ of cervix, unspecified location [D06.9] Procedures DC LAPAROSCOPY W TOT HYSTERECTUTERUS <=250 GRAM W TUBE/OVARY ROBOTIC ASSISTED TOTAL HYSTERECTOMY BILATERAL SALPINOG-OOPHORECTOMY Referral ID Status Reason Start Date Expiration Date Visits Re quested Visits Authorized [id number] 1 1 Encounter Details Date Type Department Care Team (Late st Contact Info) Description 04/04/2018 7:27 AM EDT Anesthesia Event EDG PERIOP [facility] [place] [address] Lemuel Cunningham MD [address] [place] [address] [place] [address] Anesthesia Record Procedure Summary Procedure Name Responsible Anesthesiologist Anesthesia Start Time Anesthesia Stop Time DAVINCI ROBOTIC TOTAL HYSTERECTOMY (Bilateral) Lemuel Cunningham MD 04/04/18 0727 04/04/18 0945 Events Date Time Event Comment 04/04/2018 0634 0723 AN Equip Check 0727 An Start 0734 An Start Data 0736 Immediate Pre Anesthetic Ass es 0740 An Induction 0741 An Intubation 0754 Anesthesia Ready 0758 Incision 0826 Relief IN Intraoperative Care Transition performed including relevant patient background, intraoperative management, procedure stage, recent or potential changes, recommended plan of care with receipt of care. KMA 0847 Relief OUT 0938 An Extubation 0939 an stop data 0944 Handoff I completed my SBAR handoff to the receiving nurse which have included the followin. Identification of the patient, family, or patient surrogate 2. Identification of the responsible practitioner 3. Pertinent medical history 4. Surgical procedure and reason for procedure 5. Intraoperative anesthetic management 6. Expectations/Plans for the early post-procedure period 7. 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 0945 An Stop Meds Name Total lidocaine injection 1% 50 mg fentaNYL 50 MCG/ML INJ 100 mcg propofol (DIPRIVAN) injection 100 mg rocuronium (ZEMURON) 10 mg/mL injection 50 mg ephedrine injection 30 mg dexamethasone (DECADRON) injection 4 mg/ mL 8 mg ondansetron (ZOFRAN) injection 4 mg /2 m L 4 mg glycopyrrolate (ROBINUL) injection 0.8 m g neostigmine (BLOXIVERZ) 1 mg/mL injectio n 4 mg levOFLOXacin in dextrose 5% (LEVAQUIN) I VPB 500 mg 500 mg metroNIDAZOLE (FLAGYL) IVPB 500 mg 500 m g lactated Ringers infusion 1,000 mL * Agents Name O2 Air Et Sevoflurane * Blood No blood administrations on file. Lines, Drains, and Airways Type Details Placement Removal Incision/Procedural Site 04/04/18; Other (Comment) (vagina); 04/04/18; 1724 04/04/18 0000 by Claudia Briones RN 04/04/18 1724 by Discharge Provider, Automatic Urethral Catheter (Flood) Placement Date: 04/04/18; Inserted By: MD Alin; Type: Latex; Balloon Size: 10 ml; Collection Container: Standard; Securement Method: Securing device (Describe); Urine Returned: Yes; Location: OR; Hand Hygiene Before Insertion: Yes; Silver-Coated Catheter In Use?: Yes; Securement Device Applied?: Yes; RANDY Intact?: Yes; Dependant Loop Observed?: Yes; Drain Tubing and Bag Below Bladder?: Yes; Removal Date: 04/04/18; Removal Time: 0940 04/04/18 0000 by Claudia Briones RN 04/04/18 0940 by Carmelita Camacho RN Incision/Procedural Site 04/04/18; Abdomen (Incision X4); 04/04/18; 1724 04/04/18 0000 by Claudia Briones RN 04/04/18 1724 by Discharge Provider, Automatic Peripheral IV 04/04/18; 0600; 20; Right; Forearm; michelle paula rn; 1; None; 04/04/18; 1314; Therapy completed; Catheter intact, Dressing applied, No Complications 04/04/18 0600 by Michelle Paula RN 04/04/18 1314 by Breana Aguilar RN Airway Device: ETT- Cuffed; Size: 7 mm; Placement Date: 04/04/18; Placement Time: 07 (created via procedure documentation); Removal Date: 04/04/18; Removal Time: 0904/04/18 0741 by Maria Del Rosario Dasilva CRNA 04/04/18 0938 by Maria Del Rosario Dasilva CRNA documented in this encounter Social History Tobacco [...] on file documented as of this encounter Procedure Notes * Maria Del Rosario Dasilva CRNA - 04/04/2018 8:12 AM EDTAssociated Order(s): INTRAOP AIRWAY PLACEMENT Intraop Airway Placement: Date/Time: 04/04/2018 7:41 AM Induction type: IV Mask size: Standard adult Pre-Oxygenation: Standard Mask ventilation: Easy mask ventilation Mask ventilation improved by: Oral airway Oral airway sizes: 100 Technique: Direct laryngoscope Laryngoscope blade: Elisa Blade size: 3 Grade view: I Airway type: ETT- cuffed Topical Anesthetic/Lubricant: LTA 4% Lidocaine Intubation assist devices: Stylet 14fr Airway location: Oral Device size: 7mm Secured at: 18 cm Secured by: Tape Measured from: Lips Placement verified: Auscultation, End tidal CO2 and Symmetric chest wall motion Condition: Atraumatic and Unchanged Insertion attempts: 1 Attempt 1 by: timothy Title: CASUALTY UNDERWRITER documented in this encounter OR Notes * Anesthesia Postprocedure Evaluation - Lemuel Cunningham MD - 04/04/2018 11:04 AM EDT Post-Anesthesia Evaluation Note Patient Name: China Verde Patient Date: April 04, 2018 Patient Location: PACU Post OP Vitals: stable Level of Consciousness: awake, alert and oriented Post Anesthesia Pain: adequate analgesia Long Acting Local Anesthetic: n/a Airway Patency: patent Respiratory: spontaneous ventilation Cardiovascular: stable and BP within 20% of baseline Hydration: euvolemic Nausea Controlled: yes Perioperative complications: NONE * Anesthesia Preprocedure Evaluation - Beka Stevens MD - 03/27/2018 7:52 AM EDT Pre-Anesthesia Evaluation Note Patient Name: China Verde Sex: female Patient : 1945 Age: 72 y.o. Patient Date: March 27, 2018 Procedure(s): ROBOTIC ASSISTED TOTAL HYSTERECTOMY BILATERAL SALPINOG-OOPHORECTOMY Anesthesia Evaluation Previous anesthesia. History of anesthetic complications: PONV No family history of anesthesia complications: Airway Comments: Pain with cervical rotation, full painfree AROM extension Mallampati: II TM distance: >3 FB Neck ROM: full Dental Dental exam findings: edentulous Pulmonary (+) Bronchitis: Chronic A smoker (quit 2009): former Physical exam: Comments: Clear to auscultation Cardiovascular (+)Exercise tolerance: SOB with steps, rarely uses steps Hypertension: Hyperlipidemia Peripheral arterial disease ([place] 0-49%; LICA >70%, similar to prior, follows with and ordered by cardiology care everywhere): Carotid Disease Shortness of breath: LANDIN Physical exam: Rhythm: regular Rate: normal Murmur (systolic): I Carotid bruits (faint) (-) no angina, no peripheral edema Neuro/Psych (+) Psychiatric history: Anxiety GI/Hepatic/Renal Comments: Urinary incontinence (+) GERD/PUD: IBS Endo/Other (+) Arthritis: Cervical pain Back or neck pain Anemia (-) no recreational drug use 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 Castro, will request old EKG from cardiology at [facility] and if no old EKG, willsend them this EKG to review before surgery. Carotid US 12/2017: care everywhere Right internal carotid artery stenosis = 0-49%. ?? Left internal carotid artery stenosis of is >70%. ?? Since 01/03/17, the study side (left ICA) ICA?CCA has increased from 5.0 to 5.4. ?? Bilateral vertebral artery flow remains antegrade. Fell in kitchen 03/19/18 and had soreness in left side of back and bump on back of head, denies LOC, no dizziness or confusion, no headaches. Reports was sore over the weekend, but denies any soreness at present, no bruising and no bump on head at present. Body mass index is 31.89 kg/m??. Anesthesia Plan ASA 3 Last solid intake: The patient has not eaten within the last 8 hours. Last clear liquid intake: The patient has not had clear liquids within the last 2 hours. Anesthesia Plan: general Induction: intravenous Monitors: STD Informed consent Anesthetic plan and risks discussed with: patient and family. Chart Reviewed and patient examined documented in this encounter Plan of Treatment Not on file documented as of this encounter Procedures Procedure Name Priority Date/Time Associated Diagnosis Comments INTRAOP AIRWAY PLACEMENT Routine 04/04/2018 8:12 AM EDT documented in this encounter Results * INTRAOP AIRWAY PLACEMENT (04/04/2018 8:12 AM EDT) Narrative [facility] - 04/04/2018 8:12 AM EDT Maria Del Rosario Dasilva CRNA ? 04/04/2018 ??8:15 AM Intraop Airway Placement: Date/Time: 04/04/2018 7:41 AM ??Induction type: ??IV ??Mask size: ??Standard adult ??Pre-Oxygenation: ??Standard ??Mask ventilation: ??Easy mask ventilation ??Mask ventilation improved by: ??Oral airway ??Oral airway sizes: ??100 ??Technique: ??Direct laryngoscope ??Laryngoscope blade: ??Elisa ??Blade size: ??3 ??Grade view: ??I ??Airway type: ??ETT- cuffed ??Topical Anesthetic/Lubricant: ??LTA 4% Lidocaine ??Intubation assist devices: ??Stylet 14fr ??Airway location: ??Oral ??Device size: ??7mm ??Secured at: 18 cm ??Secured by: ??Tape ??Measured from: ??Lips ??Placement verified: ??Auscultation, End tidal CO2 and Symmetric chest wall motion ??Condition: ??Atraumatic and Unchanged ??Insertion attempts: ??1 ??Attempt 1 by: timothy ??Title: ??CASUALTY UNDERWRITER Procedure Note Maria Del Rosario Dasilva CRNA - 04/04/2018 8:12 AM EDT Intraop Airway Placement: Date/Time: 04/04/2018 7:41 AM Induction type: IV Mask size: Standard adult Pre-Oxygenation: Standard Mask ventilation: Easy mask ventilation Mask ventilation improved by: Oral airway Oral airway sizes: 100 Technique: Direct laryngoscope Laryngoscope blade: Elisa Blade size: 3 Grade view: I Airway type: ETT- cuffed Topical Anesthetic/Lubricant: LTA 4% Lidocaine Intubation assist devices: Stylet 14fr Airway location: Oral Device size: 7mm Secured at: 18 cm Secured by: Tape Measured from: Lips Placement verified: Auscultation, End tidal CO2 and Symmetric chestwall motion Condition: Atraumatic and Unchanged Insertion attempts: 1 Attempt 1 by: timothy Title: CASUALTY UNDERWRITER us Lemuel Cunningham MD DC ANESTHESIA Final Res ult [facility] [address] [place] [address] documented in this encounter Visit Diagnoses Not on filedocumented in this encounter Administered Medications Inactive Administered Medications - up to 1 most recent administrations Medication Order MAR Action Action Date Dose Rate Site dexamethasone (DECADRON) injection PRN (Anesthesia), Starting on Mon04/04/18 at 0809, Until Mon04/04/18 at 0945, Anesthesia Intra-op Given 04/04/2018 8:09 AM EDT 8 mg ePHEDrine injection Intravenous, PRN (Anesthesia), Starting on Mon04/04/18 at 0745, Until Mon04/04/18 at 0945, Anesthesia Intra-op Given 04/04/2018 8:06 AM EDT 10 mg fentaNYL (SUBLIMAZE) injection Intravenous, PRN (Anesthesia), Starting on Mon04/04/18 at 0740, Until Mon04/04/18 at 0945, Anesthesia Intra-op Given 04/04/2018 9:03 AM EDT 25 mcg glycopyrrolate (ROBINUL) injection Intravenous, PRN (Anesthesia), Starting on Mon04/04/18 at 0747, Until Mon04/04/18 at 0945, Anesthesia Intra-op Given 04/04/2018 9:26 AM EDT 0.6 mg lactated Ringers infusion Intravenous, at 100 mL/hr, PREPROCEDURE CONTINUOUS, Starting on Mon04/03/18 at 0838, Until Mon04/04/18 at 0837, To be given in SDS/Pre-op Hold, Pre-op (Holding/SDS Meds) New Bag 04/04/2018 9:34 AM EDT levOFLOXacin in dextrose 5% (LEVAQUIN) IVPB 500 mg 500 mg, Intravenous, ONCE PREPROCEDURE, 1 dose, On Mon04/04/18 at 0645, Administer over 60 Minutes, Administer within 60 minutes of procedure, Pre-op (Antibiotic) Given 04/04/2018 7:27 AM EDT 500 mg lidocaine 1% 10 mg/mL (1 %) injection Intravenous, PRN (Anesthesia), Starting on Mon04/04/18 at 0740, Until Mon04/04/18 at 0945, Anesthesia Intra-op Given 04/04/2018 7:40 AM EDT 50 mg metroNIDAZOLE (FLAGYL) IVPB 500 mg 500 mg, Intravenous, ONCE PREPROCEDURE, 1 dose, On Mon04/04/18 at 0645, Administer over 30 Minutes, Administer 30 minutes prior to procedure. VESICANT , Pre-op (Antibiotic) Given 04/04/2018 7:42 AM EDT 500 mg neostigmine (BLOXIVERZ) injection PRN (Anesthesia), Starting on Mon04/04/18 at 0926, Until Mon04/04/18 at 0945, Anesthesia Intra-op Given 04/04/2018 9:26 AM EDT 4 mg ondansetron (ZOFRAN) injection PRN (Anesthesia), Starting on Mon04/04/18 at 0809, Until Mon04/04/18 at 0945, Nausea, Anesthesia Intra-op Given 04/04/2018 8:09 AM EDT 4 mg propofol (DIPRIVAN) injection Intravenous, PRN (Anesthesia), Starting on Mon04/04/18 at 0740, Until Mon04/04/18 at 0945, Anesthesia Intra-op Given 04/04/2018 7:40 AM EDT 100 mg rocuronium (ZEMURON) injection Intravenous, PRN (Anesthesia), Starting on Mon04/04/18 at 0740, Until Mon04/04/18 at 0945, Anesthesia Intra-op Given 04/04/2018 9:03 AM EDT 10 mg documented in this encounter Additional Health Concerns Assessment Noted Time A fall risk assessment has been complete d for the patient 12/11/2017 7:56 AM EST documented as of this encounter Care Teams Processing Lead Relationship Specialty Start Date End Date Nabil Gilbert MD [facility] [place] [address] [place] [id number] PCP - General Family Medicine 12/29/17 Riley Ogden MD [address] [place] [address] Consulting Physician Obstetrics & Gynecology-Gynecologic Oncology 12/22/17 Ramonita Anguiano MD [address] [place] [address] Referring Physician Obstetrics & Gynecology 12/21/17 documented as of this encounter
--- OUTSIDE RECORDS SUMMARY | 2024-08-28 16:00 | XMS_ITS | Encounter Summary ---
Author Organization [place] [address] Care Team Providers Care Learning Developer Name Role Phone Riley Ogden MD Unavailable [phone] Ramonita Anguiano MD Unavailable [phone]- [phone] Nabil Gilbert MD Primary Care Provider [phone] Encounter Details Date Type Department Care Team (Latest Contact Info) Description 01/08/2018 8:30 AM EDT - 01/08/2018 11:59 PM EDT Hospital Encounter [facility] [address] [place] [address] Discharge Disposition: Home or Self Care Social History Tobacco Use Types Packs/Day Years Used Date Smoking Tobacco: Former Cigarettes Q uit: 2010 Smokeless Tobacco: Never Alcohol Use Standard Drinks/Week [...] on file documented as of this encounter Medications at Time of Discharge [...] or Self Care documented in this encounter Plan of Treatment Not on file documented as of this encounter Procedures Procedure Name Priority Date/Time Associated Diagnosis Comments CBC WITH DIFF Routine 01/08/2018 8:29 AM EDT BASIC METABOLIC PANEL Routine 01/08/2018 8:29 AM EDT documented in this encounter Results * CBC WITH DIFF (01/08/2018 8:29 AM EDT) [facility] Signature WBC 6.5 4.0 - 11.0 x10(3)/mcL 01/08/2018 8:44 AM EDT [facility] RBC 4.37 3.80 - 5.10 x10(6)/mcL 01/08/2018 8:44 AM EDT [facility] Hgb 13.1 12.0 - 15.6 gm/dL 01/08/2018 8:44 AM EDT [facility] Hct 39.0 35.7 - 45.9 % 01/08/2018 8:44 AM EDT [facility] MCV 89.3 82.5 - 99.8 fL 01/08/2018 8:44 AM EDT [facility] MCH 30.1 27.0 - 34.3 pg 01/08/2018 8:44 AM EDT [facility] MCHC 33.7 32.1 - 35.3 gm/dL 01/08/2018 8:44 AM EDT [facility] RDW 13.5 11.5 - 15.0 % 01/08/2018 8:44 AM EDT [facility] Platelet 172 144 - 423 x10(3)/[facility] 01/08/2018 8:44 AM EDT [facility] MPV 7.3 6.8 - 10.8 fL 01/08/2018 8:44 AM EDT [facility] Neut Percent 63.1 % 01/08/2018 8:44 AM EDT [facility] Lymph Percent 25.7 % 01/08/2018 8:44 AM EDT [facility] Bartholomew Percent 9.4 % 01/08/2018 8:44 AM EDT [facility] Eos Percent 0.9 % 01/08/2018 8:44 AM EDT [facility] Baso Percent 0.9 % 01/08/2018 8:44 AM EDT [facility] Neut # 4.1 1.8 - 7.7 x10(3)/[facility] 01/08/2018 8:44 AM EDT [facility] Lymph # 1.7 0.6 - 4.8 x10(3)/[facility] 01/08/2018 8:44 AM EDT [facility] Bartholomew # 0.6 0.0 - 1.3 x10(3)/[facility] 01/08/2018 8:44 AM EDT [facility] Eos# 0.1 0.0 - 0.5 x10(3)/[facility] 01/08/2018 8:44 AM EDT [facility] Baso # 0.1 0.0 - 0.2 x10(3)/[facility] 01/08/2018 8:44 AM EDT [facility] Blood VENOUS BLOOD / Unknown Venipuncture / Unknown 01/08/2018 8:29 AM EDT 01/08/2018 8:29 AM EDT us Riley Ogden MD HEMATOLOGY ORDERABLES Final R esult [facility] [address] [place] [address] * (ABNORMAL) BASIC METABOLIC PANEL (01/08/2018 8:29 AM EDT) Sodium 142 136 - 145 mmol/L 01/08/2018 9:08 AM [facility] Potassium 4.3 3.5 - 5.0 mmol/L 01/08/2018 9:08 AM [facility] Chloride 99 98 - 107 mmol/L 01/08/2018 9:08 AM [facility] Total CO2 32(H) 22 - 29 mmol/L 01/08/2018 9:08 AM [facility] Anion Gap 11 7 - 16 mmol/L 01/08/2018 9:08 AM [facility] Calcium 9.8 8.8 - 10.2 mg/dL 01/08/2018 9:08 AM [facility] Glucose Lvl 107(H) 82 - 100 mg/dL 01/08/2018 9:08 AM [facility] BUN 27(H) 8 - 23 mg/dL 01/08/2018 9:08 AM [facility] Creatinine 0.89 0.51 - 1.30 mg/dL 01/08/2018 9:08 AM [facility] GFR Afr Am 74 mL/min/1.7 3 m2 01/08/2018 9:08 AM [facility] GFR Non Afr Am 64 mL/min/1.7 3 m2 01/08/2018 9:08 AM [facility] Comment: GFR Afr Am and GFR Non Afr Am calculated using CKD-EPI equation. ?? GFR Category ?GFR(mL/min/1.73 m??) ? Kidney Function G1 ?>=90 ?Normal or high G2 ?60-89 ? Mildly decreased G3a ? 45-59 ? Mildly to moderately decreased G3b ? 30-44 ? Moderately to severely decreased G4 ?15-29 ? Severely decreased G5 ?<15 ? Kidney Failure Blood VENOUS BLOOD / Unknown Venipuncture / Unknown 01/08/2018 8:29 AM EDT 01/08/2018 8:29 AM EDT us Riley Ogden MD CHEMISTRY ORDERABLES Final Re sult Performing Organization Address City/State/[facility] Co de Phone Number [facility] [address] [place] [address] documented in this encounter Visit Diagnoses Not on filedocumented in this encounter Additional Health Concerns Assessment Noted Time A fall risk assessment has been complete d for the patient 12/11/2017 7:56 AM EST documented as of this encounter Care Teams Learning Developer Relationship Specialty Start Date End Date Nabil Gilbert MD [address] [facility] [address] [place] [address] PCP - General Family Medicine 12/29/17 Riley Ogden MD [address] [place] [address] [place] [address] Consulting Physician Obstetrics & Gynecology-Gynecologic Oncology 12/22/17 Ramonita Anguiano MD [address] [facility] [place] [address] Referring Physician Obstetrics & Gynecology 12/21/17 documented as of this encounter
--- OUTSIDE RECORDS SUMMARY | 2024-08-28 16:00 | XMS_ITS | Encounter Summary ---
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 [address] Riley Ogden MD [address] [place] [address] [place] [address] CERVICAL CONIZATION/COLD KNIFE/BIOPSY DILATION AND CURETTAGE Surgery Details Date/Time Status Location OR Service Patient Class Case Class Case Type Trauma Case? 01/10/2018 7:30 AM Posted [facility] MAIN OR [facility] Room 04 Gynecology Oncology Same Day Surgery N/A Panel 1 Procedure LRB Anes Op Region Wound Class Comments CERVICAL CONIZATION/COLD KNIFE/BIOPSY DILATION AND CURETTAGE N/A General Clean Contaminated COLD KNIFE CONIZATION OF CERVIX Surgeon Surgeon Role Service Panel Riley Ogden MD Primary Gynecology Oncology 1 Special Needs AC documented in this encounter Social History Tobacco [...] Sign Reading Time Taken Comments Blood Pressure 143/69 01/10/2018 8:30 AM EDT Pulse 73 01/10/2018 8:30 AM EDT Temperature 36.2 ??C (97.2 ??F) 01/10/2018 8:23 AM ED T Respiratory Rate 18 01/10/2018 8:30 AM EDT Oxygen Saturation 97% 01/10/2018 8:30 AM EDT Inhaled Oxygen Concentration - - [...] Worsening pain or any other concerns. +++++++++++++++++++++++++++++++++++++++++++++++++++++++++++++++++++ [facility] Discharge Instructions - Following Anesthesia We [...] our office at . [facility] +++++++++++++++++++++++++++++++++++++++++++++++++++++++++++++++++++ documented in this encounter Medications [...] Code Departure Means Destination Home or Self Halfway documented in this encounter H&P Notes * [...] by Dr. Ogden. ?? Jarett Jean-Baptiste MD Commodity Specialist Onc Resident, PGY4 Source Note - Riley [...] Procedure Notes * Riley Ogden MD - 01/10/2018 10:15 AM EDT DATE OF OPERATION: 01/10/2018 PREOPERATIVE DIAGNOSIS: DEL-3. POSTOPERATIVE DIAGNOSIS: DEL-3. PROCEDURE PERFORMED: Cold knife conization of cervix. SURGEON: Riley Ogden MD CHILDREN'S MINISTER: Dr. Jarett Jean-Baptiste, Resident. ANESTHESIA: General with [...] Riley Ogden M.D. By: Hermelindo Job ID: [id number] Doc ID: [id number] * Riley Ogden MD - 01/10/2018 8:56 AM EDT [facility] OPERATIVE/PROCEDURE NOTE [place] January 10, 2018 Body mass index is 30.53 kg/m??. 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 Jarett Jean-Baptiste MD Date: 01/10/2018 # [id number] documented in this encounter Nursing Notes * [...] morning. Dtr Katlyn states she is mom's uke driver and they cannot go today and have EKG done, patient and dtr are choosing to do morning of surgery. I fully explained the risk of being cancelled if EKG is abnormal, they verbalized understanding. Katlyn states mom saw her survey methodologist 2 weeks ago and he is happy with her current state of health. Will notify Dr. Ogden's office of this information and Aide [place]. I spoke to Juliet at Dr. Ogden's office. * Chelsey Kern CNA - 01/09/2018 11:23 AM EDT Called [facility] and requested copy of most recent EKG tracing she stated they do not havean EKG on her * Jeanie Aragon RN - 01/09/2018 9:06 AM EDT CXR faxed to Dr. Ogden's office [phone] * Whit Cortes RN - 01/05/2018 2:15 PM EDT Spoke with patient's daughter and she will take patient to [facility] on 01-08-18 tohave pre op CBC, BMP, CXR and EKG done. Patient is a first case on 01-10-18. Daughter states it not be a hardship to go to [facility]. * Sydnee Garcia RN - 01/05/2018 10:03 [...] to Melanie at dr Hughes office in [place] and spoke to Marleen at Dr Stevens office in [place]- they will fax any recent testing * [...] ??? Review instructions provided by your surgeon. Hot Shot ??? On the day of surgery, it is important to have a Hot Shot, someone who is 18 years or older, [...] until the child is discharged. If your infant takes a special type of nipple or [...] or near the operative extremity. ??? Nail andorran must be removed from operative extremity. Personal [...] a Living Will and Durable Power of [place] [facility] for Healthcare, please bring a copy. ??? [...] are here. [facility] [place] at [phone]; [place] [facility]: Patient Entrance 3A, take North elevator [...] AM EDT) CASE REPORT Surgical Pathology ?Case: [id number] ? Authorizing Provider: ??Riley Ogden MD ? Collected: ? 01/10/2018 0803 ? Ordering Location: ? [facility] ?Received: ?01/10/2018 0850 ? Pathologist: ? Cari Lazo MD ? Specimen: ?Cervix, Cervical cone ? 01/11/2018 10:07 AM EDT [facility] FINAL DIAGNOSIS Cervix, cone excision: - Benign cervical tissue focally lined by nondysplastic squamous epithelium. - Extensively denuded surface epithelium. - Negative for dysplasia. 01/11/2018 10:07 AM EDT [facility] S DESCRIPTION Received in formalin and labeled with the patient? s name and ? cervical cone? is a 1.7 x 1.5 x 0.8 cm portion of pink-white rubbery tissue partially surfaced with shaggy red-brown mucosa with an eccentric strictured 0.1 cm in diameter os. The specimen is radially sectioned and entirely submitted in four cassettes in a clockwise manner. /TE 01/11/2018 10:07 AM EDT [facility] MICROSCOPIC DESCRIPTION Microscopic examination is performed and the findings corroborate the diagnosis. 01/11/2018 10:07 AM EDT [facility] EMBEDDED IMAGES 01/11/2018 10:07 AM EDT [facility] Tissue SPECIMEN FROM UTERINE CERVIX / Unknown 01/10/2018 8:03 AM EDT 01/10/2018 8:50 AM EDT us Riley Ogden MD PATHOLOGY ORDERABLES Final Re sult [facility] [address] [place] [address] * EK EKG 12 LEAD (01/10/2018 5:58 AM EDT) Anatomical Region Laterality Modality Electrocardiogra phy 01/10/2018 6:14 AM EDT Impressions 01/10/2018 7:50 PM EDT ? Stationary ECG Study ?[facility] ? Interpretive Statements ? SINUS BRADYCARDIA INDETERMINATE AXIS LOW QRS VOLTAGE IN PRECORDIAL LEADS INCOMPLETE RIGHT BUNDLE BRANCH BLOCK MODERATE T-WAVE ABNORMALITY, CONSIDER ANTEROLATERAL ISCHEMIA NO PRIOR ECG FOR COMPARISON Electronically Signed On 01-10-2018 19:50:16 EDT by Jonas Munoz MD Narrative Procedure Note Milo Munoz MD - 01/10/2018 IMPRESSION Stationary ECG Study [facility] Interpretive Statements SINUS BRADYCARDIA INDETERMINATE AXIS LOW [...] Bag 01/10/2018 6:35 AM EDT 100 mL/hr lidocaine-EPINEPHrine 1 %-1:100,000 injection ONCE PRN, 1 dose, Starting on Mon01/10/18 at 0809, Until Mon01/10/18 at 0809, Intra-op Given 01/10/2018 8:09 AM EDT 4 mL morphine injection 2 mg 2 mg, Intravenous, [...] PACU strong iodine (LUGOL'S) 5 % solution ONCE PRN, 1 dose, Starting on Mon01/10/18 at 0810, Until Mon01/10/18 at 0810, Intra-op Given 01/10/2018 8:10 AM EDT 12 mL documented in this encounter Historical Medications * [...] Meds) 0618 (Given - Provid er: Jayna Griffihts RN) fentaNYL (SUBLIMAZE) injection 25 mcg 25 [...] 01/10/2018 fentaNYL (SUBLIMAZE) injection 25 mcg 1 morphine injection 2 mg 1 01/10/2018 ondansetron (ZOFRAN) injection 4 mg 1 01/10 ondansetron (ZOFRAN-ODT) dis integrating tablet 8 mg 1 01/10/2018 oxyCODONE (ROXICODONE) immed iate release tablet 5 mg 1 01/10/2018 oxyCODONE-acetaminophen (PER COCET) 5-325 mg per tablet 1 Tab 1 01/10/2018 documented in this encounter Additional Health Concerns Assessment Noted Time A fall risk assessment has been complete d for the patient 12/11/2017 7:56 AM EST documented as of this encounter Care Teams Senior Cytogenetic Technologist Relationship Specialty Start Date End Date Nabil Gilbert MD [address] [facility] [address] [place] [address] PCP - General Family Medicine 12/29/17 Riley Ogden MD [address] [place] [address] Consulting Physician Obstetrics & Gynecology-Gynecologic Oncology 12/22/17 Ramonita Anguiano MD [address] [place] [address] Referring Physician Obstetrics & Gynecology 12/21/17 documented as of this encounter
--- OUTSIDE RECORDS SUMMARY | 2024-08-28 16:00 | XMS_ITS | Encounter Summary ---
Author Organization [place] [address] Care Team Providers Care [id number] Armor Crewman Name Role Phone Riley Ogden MD Unavailable [phone] Ramonita Anguiano MD Unavailable [phone]- [phone] Nabil Gilbert MD Primary Care Provider [phone] Encounter Details Date Type Department Care Team (Late st Contact Info) Description 01/08/2018 Telephone [facility] [id number] Alena Camacho RN Social History Tobacco Use Types Packs/Day Years [...] as of this encounter Miscellaneous Notes * Telephone Encounter - Alena Camacho RN - 01/08/2018 12:51 PM EDT Pre op documented in this encounter Plan of Treatment Not on file documented as of this encounter Results * XR CHEST PA AND LATERAL (01/08/2018 8:49 AM EDT) Anatomical Region Laterality Modality Chest Radiographic Chelsey ging 01/08/2018 8:49 AM EDT Impressions 01/08/2018 8:53 AM EDT No acute cardiopulmonary disease identified. Narrative 01/08/2018 8:53 AM EDT XR CHEST PA AND LATERAL ?? 01/08/2018 8:49 AM HISTORY: ??D06.9-Carcinoma in situ of cervix, [id number] ?? COMPARE: None. Heart size upper normal. Small calcified granuloma noted, peripheral right upper lung. Lungs are otherwise clear. ??Cardiac, mediastinal, and hilar contours are unremarkable. There is mild to moderate compression of T12 incidentally noted. Procedure Note Riley Nelson MD - 01/08/2018 XR CHEST PA AND LATERAL 01/08/2018 8:49 AM HISTORY: D06.9-Carcinoma in situ of cervix, [id number] COMPARE: None. Heart size upper normal. Small calcified granuloma noted, peripheral rightupper lung. Lungs are otherwise clear. Cardiac, mediastinal, and hilar contoursare unremarkable. There is mild to moderate compression of T12 incidentallynoted. IMPRESSION: No acute cardiopulmonary disease identified. 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- Primary Carcinoma in situ of cervix uteri documented in this encounter Additional Health Concerns Assessment Noted Time A fall risk assessment has been complete d for the patient 12/11/2017 7:56 AM EST documented as of this encounter Care Teams [id number] Armor Crewman Relationship Specialty Start Date End Date Nabil Gilbert MD [address] [place] [address] [address] [place], [place] [address] PCP - General Family Medicine 12/29/17 Riley Ogden MD [address] [place] [address] Consulting Physician Obstetrics & Gynecology-Gynecologic Oncology 12/22/17 Ramonita Anguiano MD [address] [place] [address] Referring Physician Obstetrics & Gynecology 12/21/17 documented as of this encounter
--- OUTSIDE RECORDS SUMMARY | 2024-08-28 16:00 | XMS_ITS | Encounter Summary ---
Author Organization 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 [address] Douglas Carias MD [address] [facility] [address] [place] [address] Alma Sebastian APRN 1 [facility] [address] Anesthesia Record Procedure Summary Procedure Name Responsible Anesthesiologist Anesthesia Start Time Anesthesia Stop Time CERVICAL CONIZATION/COLD KNIFE/BIOPSY DILATION AND CURETTAGE Douglas Carias MD 01/10/18 0733 01/10/18 0829 Events Date Time Event Comment 01/10/2018 0714 AN Equip Check 0715 0733 An Start 0735 An Start Data 0736 Immediate Pre Anesthetic Ass es 0739 An Induction 0741 An LMA 0742 Anesthesia Ready 0753 Incision 0813 Airway Removed 0817 an stop data 0829 Handoff I completed my SBAR handoff to the receiving nurse which have included the followin. Identification of the patient, family, or patient surrogate 2. Identification of the responsible practitioner 3. Pertinent medical history 4. Surgical procedure and reason for procedure 5. Intraoperative anesthetic management 6. Expectations/Plans for the early post-procedure period 7. Opportunity for questions and acknowledgement of understanding from the receiving PACU/ICU marine steamfitter 0829 An Stop Meds Name Total lidocaine injection 1% 50 mg propofol (DIPRIVAN) injection 150 mg glycopyrrolate (ROBINUL) injection 0.2 m g lactated Ringers infusion 800 mL * Agents Name O2 Et Sevoflurane * Blood No blood administrations on file. Lines, Drains, and Airways Type Details Placement Removal Peripheral IV 01/10/18; 0615; 20; Left; Hand; conrad; 1; 01/10/18; 0939; Therapy completed; Catheter intact, No Complications 01/10/18 0615 by Jayna Griffiths RN 01/10/18 0939 by Juana Gonzalez RN Airway Device: LMA; Size: 4 ; Placement Date: 01/10/18; Placement Time: 0741 (created via procedure documentation); Removal Date: 01/10/18; Removal Time: 0801/10/18 0741 by Jessica Snell CRNA 01/10/18 0813 by Jessica Snell CRNA Incision/Procedural Site 01/10/18; 0753; Other (Comment) (Cervix); 01/10/18; 1358 01/10/18 0753 by Laura Morales RN/FA 01/10/18 1358 by Discharge Provider, Automatic documented in this encounter Social History Tobacco [...] as of this encounter Procedure Notes * Jessica Snell CRNA - 01/10/2018 7:39 AM EDTAssociated Order(s): INTRAOP AIRWAY PLACEMENT Intraop Airway Placement: Date/Time: 01/10/2018 7:41 AM Induction type: IV Mask size: Standard adult Pre-Oxygenation: Standard Mask ventilation: Easy mask ventilation Airway type: LMA Device size: 4 Placement verified: End tidal CO2 and Symmetric chest wall motion Condition: Atraumatic and Unchanged Insertion attempts: 1 Attempt 1 by: ace Title: MAPPING PILOT documented in this encounter OR Notes * Anesthesia Postprocedure Evaluation - Fredy Castro DO - 01/10/2018 1:58 PM EDT Post-Anesthesia Evaluation Note Patient Name: China Verde Patient Date: January 10, 2018 Patient Location: [facility] Post OP Vitals: stable Level of Consciousness: awake, alert and oriented Post Anesthesia Pain: adequate analgesia Airway Patency: patent Difficult Airway: no Respiratory: room air Cardiovascular: stable Hydration: euvolemic Nausea Controlled: yes Comments: Pt is stable and ready for discharge to home. * Anesthesia Preprocedure Evaluation - Fredy Castro DO - 01/04/2018 4:06 PM EDT Pre-Anesthesia Evaluation Note Patient Name: Cihna Verde Sex: female Patient : 1945 Age: 72 y.o. Patient Date: January 04, 2018 Procedure(s): CERVICAL CONIZATION\COLD KNIFE DILATION AND CURETTAGE (N/A ) Anesthesia Evaluation Previous anesthesia. Airway Mallampati: II TM distance: >3 FB Neck ROM: full No increased risk of difficult airway Dental - normal exam Pulmonary - negative ROS (+) A smoker: former Cardiovascular Comments: Follows with Dr. Rodney Metz in [place], last visit 12/2017 Carotid US 12/2017 [place] 0-49%. LICA >70%. 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 Anesthesia Plan ASA 3 Anesthesia Plan: general Induction: intravenous Monitors: STD Informed consent Anesthetic plan and risks discussed with: patient. Chart Reviewed and patient examined documented in this encounter Plan of Treatment Not on file documented as of this encounter Procedures Procedure Name Priority Date/Time Associated Diagnosis Comments INTRAOP AIRWAY PLACEMENT Routine 01/10/2018 7:39 AM EDT documented in this encounter Results * INTRAOP AIRWAY PLACEMENT (01/10/2018 7:39 AM EDT) Narrative [facility] - 01/10/2018 7:39 AM EDT Jessica Snell, MAPPING PILOT ? 01/10/2018 ??8:03 AM Intraop Airway Placement: Date/Time: 01/10/2018 7:41 AM ??Induction type: ??IV ??Mask size: ??Standard adult ??Pre-Oxygenation: ??Standard ??Mask ventilation: ??Easy mask ventilation ??Airway type: ??LMA ??Device size: ??4 ??Placement verified: ??End tidal CO2 and Symmetric chest wall motion ??Condition: ??Atraumatic and Unchanged ??Insertion attempts: ??1 ??Attempt 1 by: ace ??Title: ??MAPPING PILOT Procedure Note Jessica Snell CRNA - 01/10/2018 7:39 AM EDT Intraop Airway Placement: Date/Time: 01/10/2018 7:41 AM Induction type: IV Mask size: Standard adult Pre-Oxygenation: Standard Mask ventilation: Easy mask ventilation Airway type: LMA Device size: 4 Placement verified: End tidal CO2 and Symmetric chest wall motion Condition: Atraumatic and Unchanged Insertion attempts: 1 Attempt 1 by: ace Title: MAPPING PILOT us Jessica Snell MAPPING PILOT LA ANESTHESIA Edited [facility] [address] [place] [address] documented in this encounter Visit Diagnoses Not on filedocumented in this encounter Administered Medications Inactive Administered Medications - up to 1 most recent administrations Medication Order MAR Action Action Date Dose Rate Site glycopyrrolate (ROBINUL) injection Intravenous, PRN (Anesthesia), Starting on Mon01/10/18 at 0747, Until Mon01/10/18 at 0829, Anesthesia Intra-op Given 01/10/2018 7:55 AM EDT 0.1 mg lidocaine 1% 10 mg/mL (1 %) injection Intravenous, PRN (Anesthesia), Starting on Mon01/10/18 at 0739, Until Mon01/10/18 at 0829, Anesthesia Intra-op Given 01/10/2018 7:39 AM EDT 50 mg propofol (DIPRIVAN) injection Intravenous, PRN (Anesthesia), Starting on Mon01/10/18 at 0739, Until Mon01/10/18 at 0829, Anesthesia Intra-op Given 01/10/2018 7:39 AM EDT 150 mg documented in this encounter Additional Health Concerns Assessment Noted Time A fall risk assessment has been complete d for the patient 12/11/2017 7:56 AM EST documented as of this encounter Care Teams Cover Cutter Relationship Specialty Start Date End Date Nabil Gilbert MD [address] [place] [address] [address] [place] [id number] PCP - General Family Medicine 12/29/17 Rilye Ogden MD [address] [place] [address] Consulting Physician Obstetrics & Gynecology-Gynecologic Oncology 12/22/17 Ramonita Anguiano MD [address] [place] [address] Referring Physician Obstetrics & Gynecology 12/21/17 documented as of this encounter
--- OUTSIDE RECORDS SUMMARY | 2024-08-28 16:00 | XMS_ITS | Encounter Summary ---
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 [address] 1, Edg Pat Nurse Discharge Disposition: Home or Self Care Anesthesia Record Procedure Summary Procedure Name Responsible [...] acknowledgement of understanding from the receiving PACU/ICU meat team lead 0945 An Stop Meds * Agents No agents on file. * Blood No blood administrations on file. Lines, Drains, and Airways Type Details Placement Removal Incision/Procedural Site 04/04/18; Other (Comment) (vagina); 04/04/18; 172304/04/18 0000 by Claudia Briones RN 04/04/18 172 by Discharge Provider, Automatic Urethral Catheter (Flood) [...] Bladder?: Yes; Removal Date: 04/04/18; Removal Time: 93904/04/18 0000 by Claudia Briones RN 04/04/18 0940 by Carmelita Camacho RN Incision/Procedural Site 04/04/18; Abdomen (Incision X4); 04/04/18; 172304/04/18 0000 by Claudia Briones RN 04/04/18 1724 by Discharge Provider, Automatic Peripheral IV 04/04/18; 0600; 20; Right; Forearm; michelle paula rn; 1; None; 04/04/18; 1314; Therapy completed; Catheter intact, Dressing applied, No Complications 04/04/18 0600 by Michelle Paula RN 04/04/18 1314 by Breana Aguilar RN Airway Device: ETT- Cuffed; Size: 7 mm; Placement Date: 04/04/18; Placement Time: 740 (created via procedure documentation); Removal Date: 04/04/18; Removal Time: 93704/04/18 07 by Maria Del Rosario Dasilva CRNA 04/04/18 0938 by Maria Del Rosario Dasilva NATURAL GAS TECHNICIAN documented in this encounter Social History Tobacco [...] Sign Reading Time Taken Comments Blood Pressure 129/62 03/27/2018 8:29 AM EDT Pulse 66 03/27/2018 8:29 AM EDT Temperature 36.2 ??C (97.2 ??F) 03/27/2018 8:29 AM ED T Respiratory Rate - - Oxygen Saturation 99% 03/27/2018 8:29 AM EDT Inhaled Oxygen Concentration - - Weight 77.3 kg (170 lb 8 oz) 03/27/2018 8:29 AM EDT Height 160 cm (5' 3 ) 03/27/2018 8:29 AM EDT Body Mass Index 30.2 03/27/2018 8:29 AM EDT documented in this encounter Discharge Instructions * Discharge Instructions* Mel Mehta, CAROLINE - 03/27/2018 8:52 AM EDT Images from the original note were not included. PREPARING FOR YOUR SURGERY Date of Surgery 04/04/18 Medications ??? Take the following pills with a small sip of water on the morning of surgery: Gabapentin, prilosec, zoloft , pain pill if needed ??? Aspirin, coumadin, blood thinners, ibuprofen, Plavix, [...] ??? Review instructions provided by your surgeon. Rotary Drill Operator Helper ??? On the day of surgery, it is important to have a Rotary Drill Operator Helper, someone who is 18 years or older, [...] or near the operative extremity. ??? Nail sri lankan must be removed from operative extremity. Personal [...] a Living Will and Durable Power of In Store Marketer for Healthcare, please bring a copy. ??? [...] are here. [facility] at [phone]; [facility]: Patient Entrance 3A, take North elevator to 2nd floor Surgical Site Infections FAQs What is a Surgical Site Infection (SSI)? A surgical site infection is an infection that occurs after surgery in the part of the body where the surgery took place. Most patients who have surgery do not develop an infection. However, infections develop in about 1 to 3 out of every 100 patients who have surgery. Some of the common symptoms of a surgical site infection are: ?? Redness and pain around the area where you had surgery ?? Drainage of cloudy fluid from your surgical wound ?? Fever Can SSIs be treated? Yes. Most surgical site infections can be treated with antibiotics. The antibiotic given to you depends on the bacteria (germs) causing the infection. Sometimes patients with SSIs also need another surgery to treat the infection. What are some of the things that hospitals are doing to prevent SSIs? To prevent SSIs, doctors, nurses, and other healthcare providers: ?? Clean their hands and arms up to their elbows with an antiseptic agent just before the surgery. ?? Clean their hands with soap and water or an alcohol-based hand rub before and after caring for each patient. ?? May remove some of your hair immediately before your surgery using electric clippers if the hairis in the same area where the procedure will occur. They should not shave you with a razor. ?? Wear special hair covers, masks, gowns, and gloves during surgery to keep the surgery area clean. ?? Give you antibiotics before your surgery starts. In most cases, you should get antibiotics within 60 minutes before the surgery starts and the antibiotics should be stopped within 24 hours after surgery. ?? Clean the skin at the site of your surgery with a special soap that kills germs. What can I do to help prevent SSIs? Before your surgery: ?? Tell your doctor about other medical problems you may have. Health problems such as allergies, diabetes, and obesity could affect your surgery and your treatment. ?? Quit smoking. Patients who smoke get more infections. Talk to your doctor about how you can quitbefore your surgery. ?? Do not shave near where you will have surgery. Shaving with a razor can irritate your skin and make it easier to develop an infection. At the time of your surgery: ?? Speak up if someone tries to shave you with a razor before surgery. Ask why you need to be shaved and talk with your surgeon if you have any concerns. ?? Ask if you will get antibiotics before surgery. After your surgery: ?? Make sure that your healthcare providers clean their hands before examining you, either with soap and water or an alcohol-based hand rub. If you do not see your providers clean their hands, please ask them to do so. ?? Family and friends who visit you should not touch the surgical wound or dressings. ?? Family and friends should clean their hands with soap and water or an alcohol-based hand rub before and after visiting you. If you do not see them clean their hands, ask them to clean their hands. What do I need to do when I go home from the hospital? ?? Before you go home, your doctor or nurse should explain everything you need to know about takingcare of your wound. Make sure you understand how to care for your wound before you leave the hospital. ?? Always clean your hands before and after caring for your wound. ?? Before you go home, make sure you know who to contact if you have questions or problems after you get home. ?? If you have any symptoms of an infection, such as redness and pain at the surgery site, drainage, or fever, call your doctor immediately. If you have additional questions, please ask your doctor or nurse. Developed and co-sponsored by The Society for Healthcare Epidemiology of [place] ([place]); InfectiousDiseases Society of [place] (IDSA); [facility] [facility] [employer]; Association for Professionals inInfection Control and Epidemiology (APIC); Centers for Disease Control and Prevention (CDC); and The Joint Commission. This information is not intended to replace advice given to you by your health care provider. Make sure you discuss any questions you have with your health care provider. Document Released: 10/07/2014 Document Revised: 10/23/2015 Document Reviewed: 12/16/2015 [employer] Interactive Patient Education ??2016 [employer]. Consulting Analyst & Community Resources If you are in need of help with Consulting Analyst or Community Resources please go to http://www.Zoomy/patients-visitors/lklkbdx-fgvbmkkv-fewvnvwt or ask your nurse for assistance. documented in this encounter Medications at Time [...] mouth daily. documented as of this encounter Discharge Disposition Disposition Code Departure Means Destination Home or Self Care documented in this encounter Nursing Notes * Chelsey Kern CNA - 03/27/2018 2:35 PM EDT Faxed cardiac clearance to Dr. Stevens and abnormal EKG tracing. Spoke to Tiana at Dr. Ogden's office and let her know we needed cardiac clearance and that I faxed the clearance request and EKG tracing to Dr. Stevens in [place] documented in this encounter Plan of Treatment Not on file documented as of this encounter Procedures Procedure Name Priority Date/Time Associated Diagnosis Comments BB HISTORY CHECK Routine 03/27/2018 9:12 AM EDT SURGERY DATE Routine 03/27/2018 9:12 AM EDT CBC Routine 03/27/2018 9:12 AM EDT PREADMISSION TYPE AND SCREEN Routine 03/27/2018 9:12 AM EDT ABORH Routine 03/27/2018 9:12 AM EDT ANTIBODY SCREEN IGG Routine 03/27/2018 9 :12 AM EDT BASIC METABOLIC PANEL Routine 03/27/2018 9:12 AM EDT documented in this encounter Results * BB HISTORY CHECK (03/27/2018 9:12 AM EDT) Pathologist [facility] BB HISTORY CHECK (1) No Previous History 03/27/2018 9:37 AM EDT [facility] Blood VENOUS BLOOD / Unknown Venipuncture / Unknown 03/27/2018 9:12 AM EDT 03/27/2018 9:16 AM EDT us Riley Ogden MD BLOOD BANK ORDERABLES Final R esult Performing Organization Address [facility] [place] [address] * SURGERY DATE (03/27/2018 9:12 AM EDT) [facility] Surgery Date (1) Complete 03/27/2018 9:37 AM EDT [facility] Blood VENOUS BLOOD / Unknown Venipuncture / Unknown 03/27/2018 9:12 AM EDT 03/27/2018 9:16 AM EDT us Riley Ogden MD BLOOD BANK ORDERABLES Final R esult Performing Organization Address [facility] Co de Phone Number [facility] [place] [address] * ANTIBODY SCREEN IGG (03/27/2018 9:12 AM EDT) [facility] ABSC IgG Int Negative 03/27/2018 12:19 PM EDT [facility] Blood VENOUS BLOOD / Unknown Venipuncture / Unknown 03/27/2018 9:12 AM EDT 03/27/2018 9:16 AM EDT us Riley Ogden MD BLOOD BANK ORDERABLES Final R esult Performing Organization Address City/[facility]/ZIP Co de Phone Number [facility] [address] [place] [address] * ABORH (03/27/2018 9:12 AM EDT) ABORH Int O POS 03/27/2018 12:17 PM EDT [facility] Blood VENOUS BLOOD / Unknown Venipuncture / Unknown 03/27/2018 9:12 AM EDT 03/27/2018 9:16 AM EDT us Riley Ogden MD BLOOD BANK ORDERABLES Final R esult [facility] [address] [address] * CBC (03/27/2018 9:12 AM EDT) [facility] Signature WBC 5.2 3.7 - 10.3 x10(3)/mcL 03/27/2018 9:26 AM EDT [facility] RBC 4.10 3.90 - 5.20 x10(6)/mcL 03/27/2018 9:26 AM EDT [facility] Hgb 12.5 11.2 - 15.7 g/dL 03/27/2018 9:26 AM EDT [facility] Hct 37.4 34.0 - 45.0 % 03/27/2018 9:26 AM EDT [facility] MCV 91.2 79.0 - 98.0 fL 03/27/2018 9:26 AM EDT [facility] MCH 30.5 26.0 - 32.0 pg 03/27/2018 9:26 AM EDT [facility] MCHC 33.4 30.7 - 35.5 g/dL 03/27/2018 9:26 AM EDT [facility] RDW 13.4 <=14.9 % 03/27/2018 9:26 AM EDT [facility] Platelet 171 155 - 369 x10(3)/mcL 03/27/2018 9:26 AM EDT [facility] MPV 9.5 8.8 - 12.5 fL 03/27/2018 9:26 AM EDT [facility] Blood VENOUS BLOOD / Unknown Venipuncture / Unknown 03/27/2018 9:12 AM EDT 03/27/2018 9:16 AM EDT us Riley Ogden MD HEMATOLOGY ORDERABLES Final R esult [facility] [address] [facility] , [place] [address] * (ABNORMAL) BASIC METABOLIC PANEL (03/27/2018 9:12 AM EDT) Sodium 139 136 - 145 mmol/L 03/27/2018 10:16 AM EDT [facility] Potassium 3.5 3.5 - 5.0 mmol/L 03/27/2018 10:16 AM EDT [facility] Chloride 97(L) 98 - 107 mmol/L 03/27/2018 10:16 AM EDT [facility] Total CO2 27 22 - 29 mmol/L 03/27/2018 10:16 AM EDT [facility] Anion Gap 15 7 - 16 mmol/L 03/27/2018 10:16 AM EDT [facility] Calcium 9.4 8.8 - 10.2 mg/dL 03/27/2018 10:16 AM EDT [facility] Glucose Lvl 169(H) 82 - 100 mg/dL 03/27/2018 10:16 AM EDT [facility] BUN 22 8 - 23 mg/dL 03/27/2018 10:16 AM EDT [facility] Creatinine 1.17 0.51 - 1.30 mg/dL 03/27/2018 10:16 AM EDT [facility] GFR Afr Am 53 mL/min/1.7 3 m2 03/27/2018 10:16 AM EDT [facility] GFR Non Afr Am 46 mL/min/1.7 3 m2 03/27/2018 10:16 AM EDT [facility] Comment: GFR Afr Am and GFR Non [...] VENOUS BLOOD / Unknown Venipuncture / Unknown 03/27/2018 9:12 AM EDT 03/27/2018 9:16 AM EDT us Riley Ogden MD CHEMISTRY ORDERABLES Final Re sult [facility] [address] [facility] , [place] [address] documented in this encounter Visit Diagnoses Not on filedocumented in this encounter Additional Health Concerns Assessment Noted Time A fall risk assessment has been complete d for the patient 12/11/2017 7:56 AM EST documented as of this encounter Care Teams Electrician Constructor Supervisor Relationship Specialty Start Date End Date Nabil Gilbert MD [address] [facility] [address] [place] [id number] PCP - General Family Medicine 12/29/17 Riley Ogden MD [address] [place] [address] Consulting Physician Obstetrics & Gynecology-Gynecologic Oncology 12/22/17 Ramonita Anguiano MD [address] [place] [address] Referring Physician Obstetrics & Gynecology 12/21/17 documented as of this encounter
--- OUTSIDE RECORDS SUMMARY | 2024-08-28 16:00 | XMS_ITS | Encounter Summary ---
Author Organization [place] [address] Care Team Providers Care Lead Radiologic Technologist Name Role Phone Riley Ogden MD Unavailable [phone] Ramonita Anguiano MD Unavailable [phone]- [phone] Nabil Gilbert MD Primary Care Provider [phone] Reason for Visit * Reason Comments Post-Operative Exam Robotic TLH/BSO 04/04 Encounter Details Date Type Department Care Team (Latest Contact Info) Description 05/25/2018 2:00 PM EDT - 05/25/2018 11:59 PM EDT Hospital Encounter [facility] [place] [address] Riley Ogden MD [address] [place] [address] [place] [address] DEL III (cervical intraepithelial neoplasia grade III) with severe dysplasia (Primary Dx) Discharge Disposition: Home or Self Care Social [...] 20 05/25/2018 2:20 PM EDT Oxygen Saturation - - Inhaled Oxygen Concentration - - Weight 76 kg (167 lb 8 oz) 05/25/2018 2:20 PM ED T Height - - Body Mass Index 29.67 04/12/2018 10:34 AM EDT documented in this encounter Medications [...] documented in this encounter Progress Notes * Riley Ogden MD - 05/25/2018 2:00 PM EDT [place] 1945 DEL III (cervical intraepithelial neoplasia grade III) with severe dysplasia 12/01/2017 Initial Diagnosis DEL III (cervical intraepithelial neoplasia grade III) with severe dysplasia - 12/11/2017 Pathology PAP (12/01/17) shows HSIL. Cervical bx per slabbing machine operator (11 o'clock) is negative for dysplasia or malignancy.ECC shows fragments of squamous mucosa with DEL III, p16 positive. No endocervical epithelium present. 01/10/2018 Surgery [facility] (Dr Ogden) - benign cervical tissue focally lined by nondysplastic squamous epithelium, extensively denuded surface epithelium, negative for dysplasia. 04/04/2018 Surgery Robotic TLH/BSO (Dr Ogden). 04/04/2018 - Pathology All pathology benign. Cervix with atrophic changes, negative for squamous dysplasia or malignancy. Pt returns today for her second postoperative visit. She reports recovering well. No pain. She denies nausea. Bowel and bladder are back to normal. No bleeding BP 156/84 (BP Location: Right arm, Patient Position: Sitting) Pulse 69 Temp 98.1 ??F (36.7 ??C)(Oral) Resp 20 Wt 167 lb 8 oz (76 kg) BMI 29.67 kg/m?? Exam: Gen: comfortable Abd:ND/ND. Incision healed Ext:no edema PV: cuff is visibly and palpably intact A/P: Fully recovered post TLH/BSO. May resume full activity. Instructions/precautions given with regard to physical activity and resumption of sexual activity. documented in this encounter Plan of Treatment [...] documented as of this encounter Care Teams Lead Radiologic Technologist Relationship Specialty Start Date End Date Nabil Gilbert MD [address] [facility] [address] [place] [address] PCP - General Family Medicine 12/29/17 Riley Ogden MD [address] [facility] [place] [address] Consulting Physician Obstetrics & Gynecology-Gynecologic Oncology 12/22/17 Ramonita Anguiano MD [address] [facility] [place] [address] Referring Physician Obstetrics & Gynecology 12/21/17 documented as of this encounter
--- OUTSIDE RECORDS SUMMARY | 2024-08-28 16:00 | XMS_ITS | Clinical Summary ---
Author Organization [facility] Address [facility] [place] [address] Phone Care Team Providers Care Thread Drawer Name Role Phone Riley Ogden MD Unavailable [phone] Ramonita Anguiano MD Unavailable [phone] Nabil Gilbert MD Primary Care Provider [phone] Allergies Active Allergy Reactions Criticality Noted Date [...] severe dysplasia 01/05/2018 PMB (postmenopausal bleeding) 01/05/2018 Surgical History Surgery Date Site/Laterality Comments CATARACT REMOVAL Bilateral TUBAL LIGATION HEMORRHOID SURGERY CARPAL TUNNEL RELEASE Bilateral CERVIX BIOPSY 01/10/2018 N/A COLD KNIFE CONIZATION OF CERVIX; Surgeon: Riley Ogden MD; Location: ED MAIN OR; Service: Gynecology Oncology HYSTERECTOMY 04/04/2018 Bilateral ROBOTIC ASSISTED TOTAL HYSTERECTOMY BILATERAL SALPINGO-OOPHORECTOMY ; Surgeon: Riley Ogden MD; Location: ED MAIN OR; Service: Gynecology Oncology Medical History Medical History Date Comments Back pain Hyperlipidemia HTN (hypertension) GERD (gastroesophageal reflux disease) Anxiety Irritable bowel syndrome Arthritis Encounter for blood transfusion 2012 Anemia Carotid artery occlusion has so me blockages- treating with meds Family History Medical History Relation Name Comments Diabetes Father Breast Cancer Maternal Aunt 1 Cancer Maternal Aunt 2 type unknown Cancer Maternal Aunt 3 type unknown Anesth Problems Neg Hx Relation Name Status Comments Father Maternal Aunt 1 Maternal Aunt 2 Maternal Aunt 3 Social History Tobacco Use Types Packs/Day Years [...] file Not on file Not on file Obstetrics History Para Term AB IAB SAB Ectopic Multiple Livin g Live Births 4 4 4 0 0 0 0 0 0 4 4 Date Outcome GA Total Labor Labor/2nd/3rd Weight Sex Type Anes PTL Sylvia A1 A5 Name Clin Term Vag-S pont Living Term Vag-S pont Living Term Vag-S pont Living Term Vag-S pont Living Comments 4 vaginal deliveries. Abnorm al pap smear 10 years ago and again most recent. Started periods 16 years Last Filed Vital Signs Vital Sign Reading [...] 04/12/2018 10:34 AM EDT Plan of Treatment Health Maintenance Due Date Last Done Comments Wellness Exam Medicare 1945 DTaP/TDaP/Td (1 - Tdap) 1962 Zoster (1 of 2) 1993 Bone Density Screening 2008 Pneumococcal Vaccine 65+ (1 of 1 - PCV) 2008 RSV or 60+ (1 - 1-d ose 75+ series) 2018 COVID-19 Vaccine ( - 2023-2 5 season) 2024 Influenza Vaccine (#1) 2024 Hepatitis B Vaccine Aged Out No longe r eligible based on patient's age to complete this topic Insurance MEDICARE PPO MR Advance Directives For more information, please contact: [phone] Documents on File Type Date Recorded Patient Informatic[employer] Developer Expl anation Power of Towing Pilot 03/27/2018 8:22 AM Advance Directives/DNR 01/09/2018 6:18 PM Care Teams Thread Drawer Relationship Specialty Start Date End Date Nabil Gilbert MD [facility] [address] [place] [address] PCP - General Family Medicine 12/29/17 Riley Ogden MD [address] [place] [address] [place] [address] Consulting Physician Obstetrics & Gynecology-Gynecologic Oncology 12/22/17 Ramonita Anguiano MD [address] [place] [address] [place] [address] Referring Physician Obstetrics & Gynecology 12/21/17
--- OUTSIDE RECORDS SUMMARY | 2024-08-28 16:00 | XMS_ITS | Encounter Summary ---
Author Organization [place] [address] Care Team Providers Care Master Planner Name Role Phone Riley Ogden MD Unavailable [phone] Ramonita Anguiano MD Unavailable [phone]- [phone] Nabil Gilbert MD Primary Care Provider [phone] Reason for Visit * Reason Comments Follow-up Post-Operative Exam Encounter Details Date Type Department Care Team (Latest Contact Info) Description 04/12/2018 10:19 AM EDT - 04/12/2018 11:59 PM EDT Hospital Encounter [facility] [place] [address] Evangelina Feng, MATERNITY NURSE [address] [place], [place] [id number] DEL III (cervical intraepithelial neoplasia grade III) [...] Sign Reading Time Taken Comments Blood Pressure 109/58 04/12/2018 10:34 AM EDT Pulse 58 04/12/2018 10:34 AM EDT Temperature 36.3 ??C (97.4 ??F) 04/12/2018 10:34 AM E DT Respiratory Rate 16 04/12/2018 10:34 AM EDT Oxygen Saturation - - Inhaled Oxygen Concentration - - Weight 75.8 kg (167 lb) 04/12/2018 10:34 AM EDT Height 160 cm (5' 3 ) 04/12/2018 10:34 AM EDT Body Mass Index 29.58 04/12/2018 10:34 AM EDT documented in this [...] documented in this encounter Progress Notes * Evangelina Gilbert, SUZANNE - 04/12/2018 10:19 AM EDT CHIEF COMPLAINT: Postoperative visit HISTORY OF PRESENT ILLNESS: [place] is a 72 y.o. female who presents for her first postop visit today. She is POD 8 from the following surgery TLH/BSO. She is feeling well, states laparoscopic incisions are red and itchy, wants to know if she can pull the glue off. Pain is controlled, not taking any pain medication. Denies abdominal pain, abdominal bloating, vaginal bleeding, leg swelling. DEL III (cervical intraepithelial neoplasia grade III) with severe dysplasia 12/01/2017 Initial Diagnosis DEL III (cervical intraepithelial neoplasia grade III) with severe dysplasia - 12/11/2017 Pathology PAP (12/01/17) shows HSIL. Cervical bx per booth manager (11 o'clock) is negative for dysplasia or [...] changes, negative for squamous dysplasia or malignancy. PHYSICAL EXAM: BP 109/58 Pulse 58 Temp 97.4 ??F (36.3 ??C) Resp 16 Ht 5' 3 (1.6 m) Wt 167 lb (75.8 kg) BMI 29.58 kg/m?? Surgical Pathology ?Case: [id number] ? Authorizing Provider: ??Riley Ogden MD ? Collected: ? 04/04/2018 0855 ? Ordering Location: ? [facility] ?Received: ?04/04/2018 1252 ? Pathologist: ? Evelyn, Tami Santana, ?MD ? Specimen: ?Uterus, Uterus, Cervix, Bilateral fallopian tubes and ovaries ? FINAL DIAGNOSIS Uterus, cervix, bilateral fallopian tubes and ovaries, hysterectomy with bilateral salpingo-oophorectomy: - Cervix - atrophic changes; Negative for squamous dysplasia or malignancy. - Endometrium - atrophic endometrium, benign endometrial polyp. - Right and left ovaries - no significant histopathologic abnormality. - Right and left fallopian tubes - no significant histopathologic abnormality, paratubal cyst, left. Gen: She is in no apparent distress. Abdomen: soft and non-distended, appropriately tender Incision(s): laparoscopic incisions are intact with small amount of redness under the skin glue, noredness extending outside of the skin glue. Sites are clean/dry/intact. Lower extremities: Negative for edema/tenderness bilaterally. ASSESSMENT AND PLAN: Adequate post-op recovery. History of DEL-III, s/p TLH/BSO 8 days ago. Final pathology demonstratesatrophic cervical changes-no dysplasia or malignancy, benign endometrial polyp, benign bilateral tubes and ovaries. Wound care reinforced-no intercourse, no tub baths, no douching, no lifting > 10lbs. She will RTC in 6 weeks. She was instructed to call with any questions or concerns. Exam was performed by MATERNITY NURSE. Case was discussed in detail with Dr Ogden who is in agreement with plan and assessment of care. Evangelina Gilbert APRN Gynecologic Oncology 04/12/2018 documented in this encounter Plan of Treatment [...] documented as of this encounter Care Teams Master Planner Relationship Specialty Start Date End Date Nabil Gilbert MD [facility] [address] [place] [address] PCP - General Family Medicine 12/29/17 Riley Ogden MD 1 [facility] [place] [address] Consulting Physician Obstetrics & Gynecology-Gynecologic Oncology 12/22/17 Ramonita Anguiano MD 1 [facility] [place] [address] Referring Physician Obstetrics & Gynecology 12/21/17 documented as of this encounter
--- OUTSIDE RECORDS SUMMARY | 2024-08-28 16:00 | XMS_ITS | Encounter Summary ---
Author Organization [place] [address] Care Team Providers Care Medical Associate Name Role Phone Riley Ogden MD Unavailable [phone] Ramonita Anguiano MD Unavailable [phone]- [phone] Nabil Gilbert MD Primary Care Provider [phone] Encounter Details Date Type Department Care Team (Late st Contact Info) Description 04/26/2022 Lab Requisition [facility] [place] [address] Abnormal finding of blood chemistry, unspecified Social History Tobacco Use Types Packs/Day Years [...] Name Priority Date/Time Associated Diagnosis Comments CBC Routine 04/26/2022 11:30 AM EDT Abnormal finding of blood chemistry, unspecified documented in this encounter Results * (ABNORMAL) CBC (04/26/2022 11:30 AM EDT) WBC 10.5(H) 3.7 - 10.3 x10(3)/mcL 04/26/2022 9:55 PM EDT [facility] RBC 4.25 3.90 - 5.20 x10(6)/mcL 04/26/2022 9:55 PM EDT [facility] Hgb 12.5 11.2 - 15.7 g/dL 04/26/2022 9:55 PM EDT [facility] Hct 40.5 34.0 - 45.0 % 04/26/2022 9:55 PM EDT [facility] MCV 95.3 80.0 - 100.0 fL 04/26/2022 9:55 PM EDT [facility] MCH 29.4 26.0 - 34.0 pg 04/26/2022 9:55 PM EDT [facility] MCHC 30.9 30.7 - 35.5 g/dL 04/26/2022 9:55 PM EDT [facility] RDW 15.1(H) <=14.9 % 04/26/2022 9:55 PM EDT [facility] Platelet 136(L) 155 - 369 x10(3)/[facility] 04/26/2022 9:55 PM EDT [facility] MPV 10.1 8.8 - 12.5 fL 04/26/2022 9:55 PM EDT [facility] Blood VENOUS BLOOD / Unknown 04/26/2022 11:30 AM EDT 04/26/2022 9:30 PM EDT us Nabil Gilbert MD HEMATOLOGY ORDERABLES Fin al Result [facility] [address] [facility] , [place] [address] documented in this encounter Visit Diagnoses Diagnosis Abnormal finding of blood chemistry, unspecified documented in this encounter Additional Health Concerns Assessment Noted Time A fall risk assessment has been complete d for the patient 12/11/2017 7:56 AM EST documented as of this encounter Care Teams Medical Associate Relationship Specialty Start Date End Date Nabil Gilbert MD [address] [facility] [address] [place] [address] PCP - General Family Medicine 12/29/17 Riley Ogden MD 1 [facility] [address] Consulting Physician Obstetrics & Gynecology-Gynecologic Oncology 12/22/17 Ramonita Anguiano MD 1 [facility] [place] [address] Referring Physician Obstetrics & Gynecology 12/21/17 documented as of this encounter
--- OUTSIDE RECORDS SUMMARY | 2024-08-28 16:00 | XMS_ITS | Encounter Summary ---
Author Organization [place] [address] Care Team Providers Care Railway Shunter Name Role Phone Riley Ogden MD Unavailable [phone] Ramonita Anguiano MD Unavailable [phone]- [phone] Nabil Gilbetr MD Primary Care Provider [phone] Reason for Visit * Reason Comments Follow-up Surgery 01/10/18 DEL 3 Encounter Details Date Type Department Care Team (Latest Contact Info) Description 01/18/2018 9:44 AM EDT - 01/18/2018 11:59 PM EDT Hospital Encounter [facility] [address] [place] [id number] Evangelina Feng, PIN INSERTER [address] [place], [place] [id number] DEL III (cervical intraepithelial neoplasia grade III) [...] Sign Reading Time Taken Comments Blood Pressure 117/67 01/18/2018 10:06 AM EDT Pulse 66 01/18/2018 10:06 AM EDT Temperature 36.7 ??C (98 ??F) 01/18/2018 10:06 AM EDT Respiratory Rate 20 01/18/2018 10:06 AM EDT Oxygen Saturation - - Inhaled Oxygen Concentration - - Weight - - Height - - Body Mass Index - - documented in this encounter Medications at Time [...] in this encounter Progress Notes * Evangelina Gilbert APRN - 01/18/2018 9:44 AM EDT CHIEF COMPLAINT: Postoperative visit HISTORY OF PRESENT ILLNESS: [place] is a 72 y.o. female who presents for her first postop visit today. She is POD 8 from the following surgery [facility]. She has a history of DEL-III and PMB. DEL III (cervical intraepithelial neoplasia grade III) with severe dysplasia 12/01/2017 Initial Diagnosis DEL III (cervical intraepithelial neoplasia grade III) with severe dysplasia - 12/11/2017 Pathology PAP (12/01/17) shows HSIL. Cervical bx per die setter (11 o'clock) is negative for dysplasia or malignancy.ECC shows fragments of squamous mucosa with DEL III, p16 positive. No endocervical epithelium present. 01/10/2018 Surgery [facility] (Dr Ogden) - benign cervical tissue focally lined by nondysplastic squamous epithelium, extensively denuded surface epithelium, negative for dysplasia. ROS: She is tolerating a regular diet. Her pain is controlled with medication. Her bowels are moving normally. Still having some small amount vaginal spotting, not saturating three pads a day, but changing three a day per hygienic measures. Bleeding is significantly less since immediately following surgery. Does not feel clean with vaginal spotting occurring, asking when she can perform vaginaldouche. PHYSICAL EXAM: BP 117/67 (BP Location: Left arm, Patient Position: Sitting) Pulse 66 Temp 98 ??F (36.7 ??C) (Oral) Resp 20 Gen: She is in no apparent distress. Lower extremities: Negative for edema/tenderness bilaterally. CASE REPORT Surgical Pathology ?Case: [id number] ? Authorizing Provider: ??Riley Ogden MD ? Collected: ? 01/10/2018 0803 ? Ordering Location: ? [facility] ?Received: ?01/10/2018 0850 ? Pathologist: ? Cari Lazo MD ? Specimen: ?Cervix, Cervical cone ? FINAL DIAGNOSIS Cervix, cone excision: - Benign cervical tissue focally lined by nondysplastic squamous epithelium. - Extensively denuded surface epithelium. - Negative for dysplasia. ASSESSMENT AND PLAN: Adequate post-op recovery s/p CK[facility] and attempted D&C 8 days ago. Final pathology demonstrates benign cervical tissue focally lined by non-dysplastic squamous epithelium, extensive denuded surface epithelium, negative for dysplasia. Adequate conization tissue sample not obtained due to inadequatevisualization of the cervical os and patient's distorted anatomy, and therefore, unable to perform D&C. This was discussed with the patient with further recommendation of proceeding with a hysterectomy to ensure removal of all dysplastic/abnormal tissue. Cervical bed will need time to heal prior to proceeding with additional surgery. Discussed anticipated laparoscopic hysterectomy/BSO once healing has occurred. She will RTC in 5 weeks for repeat exam and to further discuss surgery at that time. Can use vaginal douche 2 weeks post-op gently with water only, no additional products added. No tub baths or intercourse for the next 5 weeks. Expect vaginal bleeding to continue to decrease over the next few days. Instructed to call the office if not or develops fever/chills, worsening pain. Exam was performed by PIN INSERTER. Case was discussed in detail with Dr Ogden who is in agreement with plan and assessment of care. Evangelina Gilbert APRN Gynecologic Oncology 01/19/2018 documented in this encounter Plan of Treatment Not on file documented as of this encounter Visit Diagnoses Diagnosis DEL III (cervical intraepithelial neoplasia grade III) with severe dysplasia- Primary Carcinoma in situ of cervix uteri PMB (postmenopausal bleeding) Postmenopausal bleeding documented in this encounter Historical Medications * This list may reflect changes made after this encounter. cyanocobalamin (VITAMIN B-12) 1,000 mcg Oral Tablet Take 1,000 mcg by mouth daily. vitamin D3-folic acid 5,000 unit- 1 mg Oral Tablet Take 5,000 Units by mouth daily. added in this encounter Additional Health Concerns Assessment Noted Time A fall risk assessment has been complete d for the patient 12/11/2017 7:56 AM EST documented as of this encounter Care Teams Railway Shunter Relationship Specialty Start Date End Date Nabil Gilbert MD [facility] [address] [place] [address] PCP - General Family Medicine 12/29/17 Riley Ogden MD [address] [place] [address] [place] [address] Consulting Physician Obstetrics & Gynecology-Gynecologic Oncology 12/22/17 Ramonita Anguiano MD [address] [place] [address] Referring Physician Obstetrics & Gynecology 12/21/17 documented as of this encounter
--- OUTSIDE RECORDS SUMMARY | 2024-08-28 16:00 | XMS_ITS | Encounter Summary ---
Author Organization [place] [address] Care Team Providers Care Modeler Name Role Phone Riley Ogden MD Unavailable [phone] Ramonita Anguiano MD Unavailable [phone]- [phone] Nabil Gilbert MD Primary Care Provider [phone] Encounter Details Date Type Department Care Team (Latest Contact Info) Description 01/08/2018 8:30 AM EDT Hospital Encounter [facility] [address] [place] [address] DEL III (cervical intraepithelial neoplasia grade III) with severe dysplasia Discharge Disposition: Home or Self Care Social [...] Name Priority Date/Time Associated Diagnosis Comments XR CHEST PA AND LATERAL Routine 01/08/2018 8:49 AM EDT DEL III (cervical intraepithelial neoplasia grade III) with severe dysplasia documented in this encounter Results * XR CHEST PA AND LATERAL (01/08/2018 8:49 AM EDT) Anatomical Region Laterality Modality Chest Radiographic Chelsey ging 01/08/2018 8:49 AM EDT Impressions 01/08/2018 8:53 AM EDT No acute cardiopulmonary disease identified. Narrative 01/08/2018 8:53 AM EDT XR CHEST PA AND LATERAL ?? 01/08/2018 8:49 AM HISTORY: ??D06.9-Carcinoma in situ of cervix, [id number] ?? COMPARE: None. Heart size upper normal. Small calcified granuloma noted, peripheral right upper lung. Lungs are otherwise clear. ??Cardiac, mediastinal, and hilar contours are unremarkable. There is mild to moderate compression of T12 incidentally noted. Procedure Note Riley Nelson MD - 01/08/2018 XR CHEST PA AND LATERAL 01/08/2018 8:49 AM HISTORY: D06.9-Carcinoma in situ of cervix, [id number] COMPARE: None. Heart size upper normal. Small calcified granuloma noted, peripheral rightupper lung. Lungs are otherwise clear. Cardiac, mediastinal, and hilar contoursare unremarkable. There is mild to moderate compression of T12 incidentallynoted. IMPRESSION: No acute cardiopulmonary disease identified. us Riley Ogden MD [facility]NOST[facility]AG[facility] ORDERA BLES Final Result documented in this encounter Visit Diagnoses Diagnosis DEL III (cervical intraepithelial neoplasia grade III) with severe dysplasia Carcinoma in situ of cervix uteri documented in this encounter Additional Health Concerns Assessment Noted Time A fall risk assessment has been complete d for the patient 12/11/2017 7:56 AM EST documented as of this encounter Care Teams Modeler Relationship Specialty Start Date End Date Nabil Gilbert MD [address] [place] [address] [address] [place] [address] PCP - General Family Medicine 12/29/17 Riley Ogden MD 1 [facility] [address] Consulting Physician Obstetrics & Gynecology-Gynecologic Oncology 12/22/17 Ramonita Anguiano MD 1 [facility] [place] [address] Referring Physician Obstetrics & Gynecology 12/21/17 documented as of this encounter
--- OUTSIDE RECORDS SUMMARY | 2024-08-28 16:01 | XMS_ITS | Encounter Summary ---
Author Organization [facility] ystem Address [address] [place] [address] Care Team Providers Care Parcel Post Officer Name Role Phone Nabil Gilbert MD Primary Care Provider [phone] Reason for Visit * Auth/Cert Specialty Diagnoses / Procedures Referred By Contac t Referred To Contact Diagnoses Stenosis of left carotid artery CELY Procedures MS TCAT IV STENT CRV CRTD ART EMBOLIC PROTECJ Carotid stent, LICA Referral ID Status Reason Start Date Expiration Date Visits Re quested Visits Authorized [id number] 1 1 Encounter Details Date Type Department Care Team (Late st Contact Info) Description 02/08/2019 10:55 AM EDT - 02/08/2019 12:55 PM EDT Surgery [facility] 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 [address] [place] [address] William England MD [address] [place] [address] Carotid stent, LICA [74010 (CPT??)] Social History Tobacco Use Types Packs/Day Years Used Date Smoking Tobacco: Former Cigarettes 2 30 1 980 - 2009 Smokeless Tobacco: Never Alcohol Use Standard Drinks/Week Comments No 0 (1 standard drink = 0.6 oz pur e alcohol) Comments Unknown Sex and Gender Information Value Date Recorded Sex Assigned at Not on file Legal Sex Female 1:50 PM EDT Gender Identity Not on file Sexual Orientation Not on file Occupation Industry Job Start Date Job End Date retired Not on file Not on file Not on file disabled Not on file Not on file Not on file documented as of this encounter Last Filed Vital Signs Vital Sign Reading Time Taken Comments Blood Pressure 131/51 02/08/2019 12:45 PM EDT Pulse 60 02/08/2019 12:45 PM EDT Temperature 36.7 ??C (98.1 ??F) 02/08/2019 12:15 PM E DT Respiratory Rate 16 02/08/2019 12:45 PM EDT Oxygen Saturation 95% 02/08/2019 12:45 PM EDT Inhaled Oxygen Concentration - - Weight 78.3 kg (172 lb 9.9 oz) 02/08/2019 8:00 A M EDT Height 160 cm (5' 3 ) 02/08/2019 8:00 AM EDT Body Mass Index 30.48 02/08/2019 5:21 PM EDT documented in this encounter Discharge Summaries * William England MD - 02/09/2019 10:08 AM EDT PATIENT: BERNICE NAVARRETE DATE OF : 1945 VISIT ID: [id number] PRIMARY CARE: Nabil Gilbert MD ADMITTING PHYSICIAN: Dada Stevens MD DATE OF ADMISSION: 02/08/2019 DATE OF DISCHARGE: 02/09/19 ADMITTING DIAGNOSIS: 1. High-grade, asymptomatic left carotid stenosis 2. Hypertension 3. Dyslipidemia DISCHARGE DIAGNOSIS: 1. High-grade, asymptomatic left carotid stenosis, status post angioplasty/stent placement 2. Hypertension 3. Dyslipidemia PROCEDURES: Cervical left carotid angioplasty/stent placement (with EPD), as part of the CREST-2 Registry BRIEF HOSPITAL COURSE: Ms. Navarrete is a 73 y.o. female with history of a carotid artery disease, who participated in theCREST-2 Trial for asymptomatic left carotid stenosis (medical management arm). She has completed the study, but she has had surveillance carotid duplex imaging which demonstrates progression of disease with now critical stenosis of her cervical left internal carotid artery. She remains asymptomatic, denying any stroke or TIA-like symptoms. Nonetheless, given the fairly rapid progression of her carotid stenosis, and concern for stroke, she is elected to undergo intervention and presented on 02/08/2019 for left carotid angioplasty/stent placement (CREST-2 Registry). Catheter angiography on 02/08/2019 confirmed the presence of a high-grade (greater than 80%) stenosis involving the left internal carotid origin with associated large area of ulceration. This responded well to angioplasty/stent placement, restoring a near normal caliber lumen and resulting in improved perfusion to the left cerebral hemisphere. She made an uneventful recovery in the intensive care unit, and was discharged home on 02/09/2019 at her neurologic baseline. Carotid duplex following stent placement demonstrates widely patent stent, no evidence of residual hemodynamically significant disease. DISCHARGE MEDICATIONS: Discharge Medications New Medications Instructions Start Date clopidogrel 75 MG tablet Commonly known as: PLAVIX 75 mg, Oral, Daily Start Date: 02/10/2019 Continue These Medications Instructions Start Date aspirin 81 MG tablet 81 mg, Oral, Daily atorvastatin 10 MG tablet Commonly known as: LIPITOR 10 mg, Oral, Daily ferrous sulfate 325 (65 FE) MG tablet 325 mg, Oral, Daily gabapentin 300 MG capsule Commonly known as: NEURONTIN 300 mg, Oral, 2 Times Daily HYDROcodone-acetaminophen 5-325 MG per tablet Commonly known as: NORCO 1 tablet, Oral, 3 Times Daily losartan-hydrochlorothiazide 100-25 MG per tablet Commonly known as: HYZAAR 1 tablet, Oral, Daily omeprazole 40 MG capsule Commonly known as: priLOSEC 40 mg, Oral, Daily sertraline 100 MG tablet Commonly known as: ZOLOFT 100 mg, Oral, Daily traZODone 50 MG tablet Commonly known as: DESYREL 50 mg, Oral, Nightly vitamin B-12 1000 MCG tablet Commonly known as: CYANOCOBALAMIN 1,000 mcg, Oral, 2 Times Daily vitamin C 500 MG tablet Commonly known as: ASCORBIC ACID 1,500 mg, Oral, Daily vitamin D3 5000 units capsule capsule 5,000 Units, Oral, Daily Stop These Medications furosemide 20 MG tablet Commonly known as: LASIX ACTIVITY: No strenuous activity or heavy lifting for 5-7 days DIET: Cardiac diet FOLLOW UP: Follow-up Information Nabil Gilbert MD Follow up. Specialty: Family Medicine Contact information: [address] [facility] [address] [place] [address] Dada Stevens MD. Schedule an appointment as soon as possible for a visit in 3 month(s). Specialty: Cardiology Why: Cancel July appt. She needs appt in 3 months Contact information: [facility] [address] [facility] [address] documented in this encounter Discharge Instructions * Attachments The following attachments cannot be sent through Care Everywhere. * Coronary Angiogram With Stent (Italian) * Coronary Angiogram With Stent Care After (Italian) * Clopidogrel tablets (Italian) documented in this encounter Medications at Time of Discharge aspirin 81 MG tablet Take 81 mg by mouth Daily. atorvastatin (LIPITOR) 10 MG tablet Take 10 mg by mouth daily. 05/14/2016 Cholecalciferol (VITAMIN D3) 5000 units capsule capsule Take 5,000 Units by mouth Daily. ferrous sulfate 325 (65 FE) MG tablet Take 325 mg by mouth daily. 03/08/2016 gabapentin (NEURONTIN) 300 MG capsule Take 300 mg by mouth 2 (two) times a day. 05/14/2016 HYDROcodone-aceta minophen (NORCO) 5-325 MG per tablet Take 1 tablet by mouth 3 (three) times a day. 05/13/2016 losartan-hydrochl orothiazide (HYZAAR) 100-25 MG per tablet Take 1 tablet by mouth daily. 05/14/2016 omeprazole (PriLOSEC) 40 MG capsule Take 40 mg by mouth daily. 05/14/2016 sertraline (ZOLOFT) 100 MG tablet Take 100 mg by mouth daily. 05/14/2016 traZODone (DESYREL) 50 MG tablet Take 50 mg by mouth every night. 05/14/2016 vitamin B-12 (CYANOCOBALAMIN) 1000 MCG tablet Take 1,000 mcg by mouth 2 (Two) Times a Day. vitamin C (ASCORBIC ACID) 500 MG tablet Take 1,500 mg by mouth Daily. clopidogrel (PLAVIX) 75 MG tablet Take 1 tablet by mouth Daily. 30 tablet 5 02/09/2019 10:54 AM EDT 02/10/2019 02/10/2019 clopidogrel (PLAVIX) 75 MG tablet Take 1 tablet by mouth Daily. 30 tablet 5 02/10/2019 05/12/2020 documented as of this encounter Progress Notes * Mahsa Kauffman PA-C - 02/08/2019 3:07 PM EDT Patient may be discharged in AM if stable. She will go home on DAPT with ASA and Plavix, as well ashley usual home medicines with the exception of Lasix, which should be discontinued at discharge as patient is also on Losartan/HCTZ. She will need to return for follow up in our office in 3 months. Cosigned by Dada Stevens MD at 03/28/2019 4:09 PM EDT Associated attestation - Dada Stevens MD - 03/28/2019 4:09 PM EDT I have reviewed the documentation above and agree. Electronically signed by Dada Stevens MD, 03/28/19, 4:09 PM. * Nabil Raman MD - 02/08/2019 1:19 PM EDT Images from the original note were not included. Cathode Builder Note 02/08/2019 Hospital Day: 0 Day of Surgery LICA stent placement Ms. Bernice Navarrete, 73 y.o. female is followed for: LICA stenosis s/p stent per Dr. England 02/08/19 Asymptomatic mild right ICA stenosis Hypertension Hyperlipidemia GERD Former smoker quit in 2009 SUBJECTIVE Bernice Navarrete is a 73 y.o. female that presented to [facility] on 02/08 for elective left ICA stentplacement. Ms. Navarrete is a patient of Dr. Stevens who was found to have asymptomatic >70% LICA stenosis via cerebral angiogram in 11/2014. She was enrolled in the CREST-2 trial with medical management that was completed this month. Last carotid duplex exhibited increased bilateral carotid velocities compared to one year ago and therefore she was considered for carotid stent placement under the CREST-2 reg istry. She remains asymptomatic. Left ICA stent placed 02/08/[address] England without complications. She was brought to 2B ICU fromthe cath lab radiological technologist and remains on Nicardipine with acceptable BP. She is resting in bed, appears without distress, and denies complaints. Past Medical History: Diagnosis Date ??? Anemia ??? Skin cancer (CMS/HCC) ??? Carotid artery disease (CMS/HCC) ??? Carotid stenosis ??? GERD (gastroesophageal reflux disease) ??? Hyperlipidemia ??? Hypertension ??? Tobacco use. None since 2009 Past Surgical History: Procedure Laterality Date ??? BACK SURGERY BETWEEN L4 AND L5 ??? HYSTERECTOMY ??? SALPINGO OOPHORECTOMY Bilateral . Tubal ligation . Bilateral cataract extraction Current Outpatient Medications on File Prior to Encounter Medication Sig Dispense Refill ??? aspirin 81 MG tablet Take 81 mg by mouth Daily. ??? atorvastatin (LIPITOR) 10 MG tablet Take 10 mg by mouth daily. ??? Cholecalciferol (VITAMIN D3) 5000 units capsule capsule Take 5,000 Units by mouth Daily. ??? ferrous sulfate 325 (65 FE) MG tablet Take 325 mg by mouth daily. ??? furosemide (LASIX) 20 MG tablet Take 1 tablet by mouth daily. (Patient taking differently: Take20 mg by mouth Daily. 20mg-40mg) 90 tablet 3 ??? gabapentin (NEURONTIN) 300 MG capsule Take 300 mg by mouth 2 (two) times a day. ??? losartan-hydrochlorothiazide (HYZAAR) 100-25 MG per tablet Take 1 tablet by mouth daily. ??? omeprazole (PriLOSEC) 40 MG capsule Take 40 mg by mouth daily. ??? sertraline (ZOLOFT) 100 MG tablet Take 100 mg by mouth daily. ??? traZODone (DESYREL) 50 MG tablet Take 50 mg by mouth every night. ??? vitamin B-12 (CYANOCOBALAMIN) 1000 MCG tablet Take 1,000 mcg by mouth 2 (Two) Times a Day. ??? vitamin C (ASCORBIC ACID) 500 MG tablet Take 1,500 mg by mouth Daily. ??? HYDROcodone-acetaminophen (NORCO) 5-325 MG per tablet Take 1 tablet by mouth 3 (three) times a day. Allergies Allergen Reactions ??? Keflex [Cephalexin] Rash ??? Vesicare [Solifenacin] Rash The patient's relevant past medical, surgical and social history were reviewed and updated in [facility] as appropriate. OBJECTIVE BP 126/68 Pulse 69 Temp 98.1 ??F (36.7 ??C) (Axillary) Resp 16 Ht 160 cm (63 ) Wt 78.3 kg(172 lb 9.9 oz) SpO2 93% BMI 30.58 kg/m?? Flow (L/min): 2 Flowsheet Rows First Filed Value Admission Height 160 cm (63 ) Documented at 02/08/2019 0800 Admission Weight 78.3 kg (172 lb 9.9 oz) Documented at 02/08/2019 0800 Intake & Output (last day) 02/07 0701 - 02/08 0702/08 07 - 02/09 0700 I.V. (mL/kg) 59.5 (0.8) Total Intake(mL/kg) 59.5 (0.8) Urine (mL/kg/hr) 250 Total Output 250 Net -190.5 Urine Unmeasured Occurrence 1 x Exam: General Exam: Elderly white female lying supine in bed. HEENT: Pupils equal and reactive. Nose and throat clear. Neck: Supple, no JVD, thyromegaly, or adenopathy Lungs: Clear anteriorly and laterally Cardiovascular: RRR without murmurs or gallops. Abdomen: Soft nontender without organomegaly or masses. and rectal: Deferred. Extremities: Right groin access site CDI without hematoma. No cyanosis clubbing edema. Neurologic: Symmetric strength. No focal deficits. Pathology but arousable will follow commands Chest X-Ray: 02/08/19. Normal INFUSIONS niCARdipine 5-15 mg/hr Last Rate: 2.5 mg/hr (02/08/19 1300) Results from last 7 days Lab Units 02/08/19 0952 02/08/19 0844 WBC 10*3/mm3 -- 5.07 HEMOGLOBIN g/dL -- 12.7 HEMOGLOBIN, POC g/dL 10.2* -- HEMATOCRIT % -- 38.5 HEMATOCRIT POC % 30* -- PLATELETS 10*3/mm3 -- 179 Results from last 7 days Lab Units 02/08/19 0952 02/08/19 0844 SODIUM mmol/L -- 143 POTASSIUM mmol/L -- 3.6 CHLORIDE mmol/L -- 101 CO2 mmol/L -- 29.0 BUN mg/dL -- 19 CREATININE mg/dL 1.00 0.90 GLUCOSE mg/dL -- 116* CALCIUM mg/dL -- 9.4 Results from last 7 days Lab Units 02/08/19 0844 ALK PHOS U/L 56 BILIRUBIN mg/dL 0.5 ALT (SGPT) U/L 31 AST (SGOT) U/L 35* No results found for: SEDRATE No results found for: BNP Lab Results Component Value Date CKTOTAL 85 01/03/2017 No results found for: TSH No results found for: LACTATE No results found for: CORTISOL I reviewed the patient's results, images and medication. Assessment/Plan ASSESSMENT LICA stenosis s/p stent per Dr. England 02/08/19 Asymptomatic mild right ICA stenosis Hypertension Hyperlipidemia GERD Former smoker quit in 2009 DISCUSSION: Doing extremely well post procedure. PLAN 1. Follow in ICU 2. Neurovascular checks per protocol 3. Nicardipine to keep SBP <140 4. Phenylephrine for SBP <90 5. Monitor for bleeding 6. Pain control 7. ASA/Plavix/statin per cardiology. Defer to cardiology whether to increase Lipitor to high dose 8. Mechanical VTE PPX 9. Protonix PUD PPX Plan of care and goals reviewed with mulitdisciplinary team at daily rounds. I discussed the patient's findings and my recommendations with patient and nursing staff Time spent Critical care 25 min (It does not include procedure time). Alyse Lau APRN, [facility] Pulmonary and Critical Care Nabil Raman MD Pulmonary and Critical Care Medicine 02/08/19 2:50 PM documented in this encounter H&P Notes * Dada Stevens MD - 02/08/2019 8:40 AM EDT Pre-cardiac Catheterization History and Physical [facility] Patient: Bernice Navarrete : 1945 PCP: Nabil Gilbert MD PHONE: [phone] DATE: 02/08/2019 ID: Bernice Navarrete is a 73 y.o. female resident of [place], [place] CC: LICA stenosis PROBLEM LIST: 1. Carotid artery disease: a. Cerebral angiogram, [facility], 11/21/2014: Bilateral patent vertebral arteries with lessthan 50% [place] stenosis and greater than 70% LICA stenosis. b. Consented for CREST-2 trial, 12/26/2014 for LICA stenosis 1. CELY arm, medical management only 2. Completed CREST 2 protocol 01/2019 c. Carotid duplex 01/15/2019: 50-69% [place] stenosis, >70% LICA stenosis, bilateral vertebral flow is antegrade; since 12/19/2017 there has been an increase in bilateral carotid artery velocities 2. Hypertension. 3. Hyperlipidemia. 4. History of anemia. 5. GERD. 6. History of tobacco use, inactive 2007 BRIEF HPI: Mrs. Navarrete is a pleasant 73 y/o WF with history as noted above who presents for LICAstent today. She has completed the CREST2 protocol study for her asymptomatic LICA stenosis, however her last duplex showed increased bilateral carotid velocities compared to previous duplex 1 year ago. After consideration, it was decided to proceed with LICA stent placement under CREST2 registry and she presents today in this regard. She has remained asymptomatic and denies any focal neurological deficits. She denies chest pain, dyspnea, syncope or heart failure. Allergies: Allergies Allergen Reactions ??? Keflex [Cephalexin] Rash ??? Vesicare [Solifenacin] Rash MEDICATIONS: No current facility-administered medications on file prior to encounter. Current Outpatient Medications on File Prior to Encounter Medication Sig ??? aspirin 81 MG tablet Take by mouth Daily. ??? atorvastatin (LIPITOR) 10 MG tablet Take 10 mg by mouth daily. ??? Cholecalciferol (VITAMIN D3) 5000 units capsule capsule Take by mouth Daily. ??? ferrous sulfate 325 (65 FE) MG tablet Take 325 mg by mouth daily. ??? furosemide (LASIX) 20 MG tablet Take 1 tablet by mouth daily. (Patient taking differently: Take20 mg by mouth Daily. 20mg-40mg) ??? gabapentin (NEURONTIN) 300 MG capsule Take 300 mg by mouth 2 (two) times a day. ??? losartan-hydrochlorothiazide (HYZAAR) 100-25 MG per tablet Take 1 tablet by mouth daily. ??? omeprazole (PriLOSEC) 40 MG capsule Take 40 mg by mouth daily. ??? sertraline (ZOLOFT) 100 MG tablet Take 100 mg by mouth daily. ??? traZODone (DESYREL) 50 MG tablet Take 50 mg by mouth every night. ??? vitamin B-12 (CYANOCOBALAMIN) 1000 MCG tablet Take 1,000 mcg by mouth 2 (Two) Times a Day. ??? vitamin C (ASCORBIC ACID) 500 MG tablet Take 1,500 mg by mouth Daily. ??? HYDROcodone-acetaminophen (NORCO) 5-325 MG per tablet Take 1 tablet by mouth 3 (three) times a day. Past medical & surgical history, social and family history reviewed in the electronic medical record. ROS: Pertinent positives listed in the HPI and problem list above. All others reviewed and negative. Physical Exam: Ht 160 cm (63 ) Wt 78.3 kg (172 lb 9.9 oz) BMI 30.58 kg/m?? Constitutional: Alert, cooperative, in no acute distress Neck: No Jugular venous distention, adenopathy, or thyromegaly noted. Heart: Regular rhythm and slow rate, normal S1 and S2, no murmurs,gallops, rubs, or clicks. No distinct PMI noted. Lungs: Clear to auscultation bilaterally, respirations regular, even and unlabored Abdomen: Soft non-tender, non-distended, normal bowel sounds, no masses or organomegaly Extremities: No gross deformities, no edema, clubbing, or cyanosis. Pulses: Peripheral pulses palpable and equal bilaterally. Labs and Diagnostic Data: Lab Results Component Value Date CHOL 156 01/15/2019 TRIG 330 (H) 01/15/2019 HDL 38 (L) 01/15/2019 LDL 63 01/15/2019 AST 62 (H) 02/17/2015 ALT 46 (H) 02/17/2015 CXR 02/08/2019: IMPRESSION: Mildly hyperinflated lungs and chronic appearing interstitial lung changes. No acute chest disease is seen. Carotid duplex 01/15/2019: Interpretation Summary ?? There is 50%-69% right internal carotid artery stenosis. ?? There is >70% left internal carotid artery stenosis. ?? Bilateral vertebral flow is antegrade. ?? Since 12/19/2017, there has been an increase in bilateral carotid artery velocities. EKG: pending IMPRESSION: ?? 73 y/o WF with history of high grade asymptomatic LICA stenosis. She has completed CREST2 (MMM arm) protocol and her most recent duplex showed increased bilateral carotid velocities compared to her previous duplex. After a review of films with the CREST team (RAGHAV Beebe MD et al), revascularizationwith CELY is elected due to progressive elevation is PSVs over the last 4 years. ?? She agrees and consents. PLAN: ?? Procedure to perform: Carotid cerebral angiogram + LICA stent. Risks, benefits and alternatives to the procedure explained to the patient and she understands and wishes to proceed. IDada MD, personally performed the services described as documented by the above named individual. I have made any necessary edits and it is both accurate and complete 02/08/2019 12:02 PM Electronically signed by Mahsa Kauffman PA-C, 02/08/19, 9:08 AM. documented in this encounter Nursing Notes * Maria Del Rosario Elaine RN - 02/09/2019 5:08 AM EDT Problem: Patient Care Overview Goal: Plan of Care Review Outcome: Ongoing (interventions implemented as appropriate) Pt s/p Left Carotid Stent placement. VSS. No complaints. Groin site soft, nontender. Plan for d/c today. * Breana Hill RN - 02/08/2019 3:25 PM EDT Problem: Patient Care Overview Goal: Plan of Care Review Outcome: Ongoing (interventions implemented as appropriate) 02/08/19 1521 Coping/Psychosocial Plan of Care Reviewed With patient;family Plan of Care Review Progress no change OTHER Outcome Summary Received patient from cath lab radiological technologist for angiogram with stent placement to the left ICA. No complaints of pain or neurological/neurovascular symptoms. Alert and oriented x4. Stroke book given and education performed. VSS, SBP <140mmHg with minimal use of cardene. Will continue to monitor. Problem: Carotid Endarterectomy (Adult) Goal: Signs and Symptoms of Listed Potential Problems Will be Absent, Minimized or Managed (CarotidEndarterectomy) Outcome: Ongoing (interventions implemented as appropriate) Goal: Anesthesia/Sedation Recovery Outcome: Outcome(s) achieved Date Met: 02/08/19 Problem: Sedation Recovery (Adult) Goal: Signs and Symptoms of Listed Potential Problems Will be Absent, Minimized or Managed (Sedation Recovery) Outcome: Outcome(s) achieved Date Met: 02/08/19 Problem: Stroke (Ischemic) (Adult) Goal: Signs and Symptoms of Listed Potential Problems Will be Absent, Minimized or Managed (Stroke) Outcome: Ongoing (interventions implemented as appropriate) documented in this encounter OR Notes * Brief Op Note - William England MD - 02/08/2019 10:33 AM EDT CAROTID STENT Progress Note Bernice Navarrete 02/08/2019 Pre-op Diagnosis: * Stenosis of left carotid artery [I65.22] Post-Op Diagnosis Codes: * Stenosis of left carotid artery [I65.22] Procedure/CPT?? Codes: Procedure(s): Carotid Angiogram, Left Carotid stent, LICA Surgeon(s): William England MD Jones, Michael R, MD Anesthesia: * No anesthesia type entered * Staff: Scrub Person: Pratima Mckeon Documenter: Lisa Villagran Invasive Nurse: Lisa Figueroa RN Estimated Blood Loss: minimal Urine Voided: * No values recorded between 02/08/2019 10:33 AM and 02/08/2019 11:41 AM * Specimens: None Drains: Findings: There has been progression of disease involving the cervical left internal carotid arteryorigin, with now a high-grade (greater than 80%) stenosis with associated large ulceration. This lesion was treated with angioplasty/stent placement (10 x 24 mm Carotid Wallstent), restoring a near no rmal caliber lumen and resulting in improved perfusion to the left cerebral hemisphere. Complications: None apparent William England MD Date: 02/08/2019 Time: 11:47 AM documented in this encounter Plan of Treatment Scheduled Orders Name Type Priority Associated Diagnoses Orde r Schedule Invasive peripheral vascular study Cardiac Cath Routine Stenosis of left carotid artery Once for 1 Occurrences starting 02/08/2019 until 02/08/2019, 1 completed documented as of this encounter Procedures Procedure Name Priority Date/Time Associated Diagnosis Comments CBC WITH AUTO DIFFERENTIAL Routine 02/09/2019 5:43 AM EDT TROPONIN Routine 02/09/2019 5:43 AM EDT CBC AND DIFFERENTIAL Routine 02/09/2019 5:43 AM EDT BASIC METABOLIC PANEL Routine 02/09/2019 5:43 AM EDT DUPLEX CAROTID LEFT CAR Routine 02/08/2019 5:21 PM EDT STENT CAROTID Routine 02/08/2019 11:41 AM EDT Stenosis of left carotid artery STENT CAROTID Routine 02/08/2019 11:41 AM EDT Stenosis of left carotid artery INVASIVE PV STUDY Routine 02/08/2019 11: 41 AM EDT Stenosis of left carotid artery POCT ACTIVATED CLOTTING TIME Routine 02/08/2019 11:26 AM EDT POCT ACTIVATED CLOTTING TIME Routine 02/08/2019 11:07 AM EDT ECG 12-LEAD STAT 02/08/2019 10:03 AM EDT POCT [id number] CT Routine 02/08/2019 9:52 AM EDT XR CHEST PA AND LATERAL STAT 02/08/2019 9:15 AM EDT CBC (NO DIFF) STAT 02/08/2019 8:44 AM EDT HEMOGLOBIN A1C STAT 02/08/2019 8:44 AM EDT COMPREHENSIVE METABOLIC PANEL STAT 02/08/2019 8:44 AM EDT SCANNED - TELEMETRY 02/08/2019 SCANNED - TELEMETRY 02/08/2019 SCANNED - TELEMETRY 02/08/2019 SCANNED - CARDIOLOGY 02/08/2019 SCANNED - LABS 02/08/2019 documented in this encounter Results * (ABNORMAL) CBC Auto Differential (02/09/2019 5:43 AM EDT) WBC 4.82 3.40 - 10.80 10*3/mm3 02/09/2019 6:40 AM EDT [facility] RBC 3.76(L) 3.77 - 5.28 10*6/mm3 02/09/2019 6:40 AM EDT [facility] Hemoglobin 11.5(L) 12.0 - 15.9 g/dL 02/09/2019 6:40 AM EDT [facility] Hematocrit 33.8(L) 34.0 - 46.6 % 02/09/2019 6:40 AM EDT [facility] MCV 89.9 79.0 - 97.0 fL 02/09/2019 6:40 AM EDT [facility] MCH 30.6 26.6 - 33.0 pg 02/09/2019 6:40 AM EDT [facility] MCHC 34.0 31.5 - 35.7 g/dL 02/09/2019 6:40 AM EDT [facility] [facility] RDW 13.2 12.3 - 15.4 % 02/09/2019 6:40 AM EDT [facility] RDW-SD 43.1 37.0 - 54.0 fl 02/09/2019 6:40 AM EDT [facility] MPV 9.6 6.0 - 12.0 fL 02/09/2019 6:40 AM EDT [facility] Platelets 154 140 - 450 10*3/mm3 02/09/2019 6:40 AM EDT [facility] Neutrophil % 60.7 42.7 - 76.0 % 02/09/2019 6:40 AM EDT [facility] Lymphocyte % 26.6 19.6 - 45.3 % 02/09/2019 6:40 AM EDT [facility] Monocyte % 10.4 5.0 - 12.0 % 02/09/2019 6:40 AM EDT [facility] Eosinophil % 1.5 0.3 - 6.2 % 02/09/2019 6:40 AM EDT [facility] Basophil % 0.4 0.0 - 1.5 % 02/09/2019 6:40 AM EDT [facility] Immature Grans % 0.4 0.0 - 0.5 % 02/09/2019 6:40 AM EDT [facility] Neutrophils, Absolute 2.93 1.70 - 7.00 10*3/mm3 02/09/2019 6:40 AM EDT [facility] Lymphocytes, Absolute 1.28 0.70 - 3.10 10*3/mm3 02/09/2019 6:40 AM EDT [facility] Monocytes, Absolute 0.50 0.10 - 0.90 10*3/mm3 02/09/2019 6:40 AM EDT [facility] Eosinophils, Absolute 0.07 0.00 - 0.40 10*3/mm3 02/09/2019 6:40 AM EDT [facility] Basophils, Absolute 0.02 0.00 - 0.20 10*3/mm3 02/09/2019 6:40 AM EDT [facility] Immature Grans, Absolute 0.02 0.00 - 0.05 10*3/mm3 02/09/2019 6:40 AM EDT [facility] Blood Venipuncture / Unknown 02/09/2019 5:43 AM EDT 02/09/2019 6:18 AM EDT us William A Given MD LAB BLOOD ORDERABLES Final Res ult [facility]
[address] [place] [address], * Troponin (02/09/2019 5:43 AM EDT) Troponin T <0.010 0.000 - 0.030 ng/mL 02/09/2019 7:12 AM EDT [facility] Blood Venipuncture / Unknown 02/09/2019 5:43 AM EDT [facility] 02/09/2019 7:12 AM EDT Troponin T Reference Range: <= 0.03 ng/mL- ?? Negative for AMI >0.03 ng/mL- ? Abnormal for myocardial necrosis. ??Clinicians would have to utilize clinical acumen, EKG, Troponin and serial changes to determine if it is an Acute Myocardial Infarction or myocardial injury due to an underlying chronic condition. us William A Given MD LAB BLOOD ORDERABLES Final Res ult [facility]
[address] [place] [address], * (ABNORMAL) Basic Metabolic Panel (02/09/2019 5:43 AM EDT) Glucose 108(H) 65 - 99 mg/dL 02/09/2019 7:16 AM EDT [facility] BUN 15 8 - 23 mg/dL 02/09/2019 7:16 AM EDT [facility] Creatinine 0.82 0.57 - 1.00 mg/dL 02/09/2019 7:16 AM [facility] Sodium 138 136 - 145 mmol/L [facility]2019 [facility] Potassium 4.0 3.5 - 5.2 mmol/L 02/09/2019 7:16 AM [facility] Chloride 101 98 - 107 mmol/L 02/09/2019 7:16 AM EDT [facility] CO2 25.0 22.0 - 29.0 mmol/L 02/09/2019 7:16 AM EDT [facility] Calcium 9.4 8.6 - 10.5 mg/dL 02/09/2019 7:16 AM [facility] eGFR Non Amer 68 >60 mL/min/1.7 3 02/09/2019 7:[facility] BUN/Creatinine Ratio 18.3 7.0 - 25.0 02/09/2019 7:16 AM EDT [facility] Anion Gap 12.0 mmol/L 02/09/2019 7:16 AM EDT [facility] Blood Venipuncture / Unknown 02/09/2019 5:43 AM EDT 02/09/2019 6:29 AM EDT Narrative [facility] - 02/09/2019 7:16 AM EDT GFR Normal >60 Chronic Kidney Disease <60 Kidney Failure <15 us William England MD LAB BLOOD ORDERABLES Final Res ult [facility]
[address] [place] [address], [place] [phone] * Duplex Carotid - Left Ultrasound CAR (02/08/2019 5:21 PM EDT) Prox CCA PSV 88 cm/sec [facility] Prox CCA EDV 14 cm/sec [facility] left Mid CCA PSV 75 cm/sec [facility] left Mid CCA EDV 15 cm/sec [facility] Dist CCA PSV 66 cm/sec [facility] Dist CCA EDV 11 cm/sec [facility] Prox ECA PSV 75 cm/sec [facility] Prox ECA EDV 8 cm/sec [facility] Prox ICA PSV 75 cm/sec [facility] Prox ICA EDV 16 cm/sec [facility] Mid ICA PSV 77 cm/sec [facility] Mid ICA EDV 18 cm/sec [facility] Dist ICA PSV 106 cm/sec [facility] Dist ICA EDV 25 cm/sec [facility] Vertebral A PSV 80 cm/sec [facility] Vertebral A EDV 20 cm/sec [facility] Prox SCLA PSV 147.7 cm/sec [facility] BH CVPROX LEFT ICA HIDDEN LRR 1 cm [facility] BH CV MID LEFT ICA HIDDEN LRR 1 cm [facility] Lt. Prox Stent 57 cm/s [facility] Lt Mid Stent 56 cm/s [facility] Lt Distal Stent 82 cm/s [facility] Lt. Prx stent 12 cm/s [facility] Lt Mid Stent 14 cm/s [facility] CV VAS CAROTID LEFT DISTAL STENT EDV 19 cm/s [facility] Anatomical Region Laterality Modality Vascular, Head Ultrasound 02/08/2019 4:22 PM EDT Narrative 02/08/2019 6:15 PM EDT ?? Left internal carotid velocities are consistent with <50% stenosis. Study Findings ? ? Left CCA Prox: Calcified heterogeneous plaque present. ? ? Left CCA Dist: Plaque present. ? ? Left ICA Prox: Stented vessel. ? ? Left ICA Mid: Stented vessel. ? ? Left ECA: No plaque visualized. ? ? Left Vertebral: Antegrade flow noted. us William England MD CV VASCULAR ORDERABLES Final R esult * STENT CAROTID (02/08/2019 11:41 AM EDT) Anatomical Region Laterality Modality X-Ray Angiograph y Addenda Addendum by Dada Stevens MD on 02/08/2019 5:04 PM EDT Referring Provider: Nabil Gilbert MD Procedures Performed: Utilizing distal embolic protection with a large OLI-6 filter wire, SUBSTATION OPERATOR of the extracranial internal carotid artery followed by the placement of a single [employer] carotid Wallstent across the injured area. Predilitation was carried out using a 3 x 25 mm NC Trek balloon. ??Post dilatation utilized a 5 x 30 mm Viatrac balloon. ?? Following the completion of this procedure and the review of an acceptable access site angiogram, the right common femoral artery was closed with an 8 Monegasque VIP Angio-Seal device. This procedure was carried out under the CREST 2 registry. There were no complications to this procedure. ?? Following its completion, 6 Monegasque pigtail was advanced across the aortic valve so that left ventricular pressures could be required in order to utilize the [place] protocol. Indications: The patient is a 73-year-old woman who, just weeks ago, completed protocol mandated four year follow-up in the CREST 2 clinical trial. ??She has remained asymptomatic; however, over the course of 4 years carotid velocities have continued to increase in severity. ??After review of carotid ultrasound data with the CREST 2 core lab, all elected to go ahead with stenting of the left internal carotid artery under the CREST 2 registry. ??The patient agreed to the study which was carried out electively this morning. Procedure Narrative: Access was gained via the right common femoral artery. ??Diagnostic carotid/intracranial angiography was carried out by William England MD. see his separate report. ??Dr. england placed a 7 Monegasque by 80 cm arrow flex cath in the distal left common carotid artery. ??I then advanced a large OLI-6 embolic filter wire across the carotid lesion and into the distal left intracranial internal carotid artery. ??Attempts to cross the lesion with a carotid Wallstent were unsuccessful. ??This was before and after the placement of a 0.014 luge wire and the external carotid artery. ??The lesion was then predilated with a 3 x 25 mm NC trek balloon. ??A second carotid Wallstent (the first could not be rewired due to undefined technical issues) was then advanced across the lesion and deployed. ??The stent was then fully dilated with a 5 x 30 mm ViaTrac balloon. ??Stenosis was reduced from greater than 70 to less than 10% without complications. ??The right common femoral artery was then closed with an 8 Monegasque VIP Angio-Seal device. ??The patient had no complications, neurologic or other, during this procedure and was transferred to the cardiovascular observation unit for further care prior to transfer to the second floor ICU. The post procedure pressures: Ao: 130/60 mm Hg LV: 130/18 mm Hg Complications: ??There were no signs of early complications. Final Impression: Successful SUBSTATION OPERATOR/stenting of high degree asymptomatic stenosis in the left internal carotid artery under the CREST 2 registry. us Dada Stevens MD CV CARDIAC CATH ORDERABLES Ed ited Result - Final * IR ANGIOGRAM CAROTID CERVICAL LEFT (02/08/2019 11:41 AM EDT) Anatomical Region Laterality Modality X-Ray Angiograph y Narrative 02/08/2019 12:57 PM EDT Senior Advisor: Dr. William England. Access: Right common femoral artery. Estimated blood loss: Negligible Complication: None apparent. Procedures: 1. ??Left common carotid catheterization with subsequent diagnostic left extracranial and intracranial carotid angiography. Technique: Formal written consent for the procedure was obtained from the patient/patient's family after explained risks to include bleeding, infection, contrast reaction, vascular injury, and stroke. ??The right groin region was prepped and draped in the usual, sterile fashion. ??Local anesthesia with 1% lidocaine infiltration was achieved. ??Additionally, intravenous fentanyl and Versed were given for patient comfort throughout the procedure, the details of which are documented in the nursing record. ?? Utilizing micropuncture technique, a 5 Monegasque vascular sheath was placed into the right common femoral artery without difficulty. ??Subsequently, a 5 Monegasque Berenstein catheter was advanced into the aortic arch, but secondary to type II/III aortic arch, catheterization of the left common carotid artery cannot be adequately achieved. ??Subsequently, 5 Monegasque Webster 2 catheter was advanced into the aortic arch and used to select the left common carotid artery without difficulty. ??Appropriate angiographic sequences were filled following contrast injection. ??Given concerns for marginal renal function, only imaging of the left carotid vasculature was performed. ??Following diagnostic portions of the procedure, primary care the patient was turned over to Dr. Dada Stevens for left carotid intervention, please refer to his cardiac catheterization note for complete details. Findings: Comparison is made to prior study dated 12/26/2014. Selective left common carotid artery catheterization and carotid angiography: The cervical portions of the left carotid vasculature demonstrate interval progression of atherosclerotic plaque formation at the carotid bifurcation, with associated ulceration, and now a resultant (greater than 80%) stenosis of the left internal carotid origin utilizing NASCET criteria. ??The intracranial circulation was opacified via a left common carotid injection, demonstrating no aneurysm or vascular malformation. ??No significant stenosis or large vessel occlusion. ??No changes of vasculitis or vasospasm. ??The dural venous sinuses are patent. Impression: Interval progression of plaque at the left internal carotid origin, with now a greater than 80% stenosis and associated large ulceration. ??Please refer to Dr. Stevens cardiac catheterization note for details regarding left carotid intervention. us Dada Stevens MD INV IR ORDERABLES Final Resul t * STENT CAROTID (02/08/2019 11:41 AM EDT) Anatomical Region Laterality Modality X-Ray Angiograph y Narrative 02/08/2019 12:57 PM EDT Senior Advisor: Dr. William England. Access: Right common femoral artery. Estimated blood loss: Negligible Complication: None apparent. Procedures: 1. ??Left common carotid catheterization with subsequent diagnostic left extracranial and intracranial carotid angiography. Technique: Formal written consent for the procedure was obtained from the patient/patient's family after explained risks to include bleeding, infection, contrast reaction, vascular injury, and stroke. ??The right groin region was prepped and draped in the usual, sterile fashion. ??Local anesthesia with 1% lidocaine infiltration was achieved. ??Additionally, intravenous fentanyl and Versed were given for patient comfort throughout the procedure, the details of which are documented in the nursing record. ?? Utilizing micropuncture technique, a 5 Monegasque vascular sheath was placed into the right common femoral artery without difficulty. ??Subsequently, a 5 Monegasque Berenstein catheter was advanced into the aortic arch, but secondary to type II/III aortic arch, catheterization of the left common carotid artery cannot be adequately achieved. ??Subsequently, 5 Monegasque Webster 2 catheter was advanced into the aortic arch and used to select the left common carotid artery without difficulty. ??Appropriate angiographic sequences were filled following contrast injection. ??Given concerns for marginal renal function, only imaging of the left carotid vasculature was performed. ??Following diagnostic portions of the procedure, primary care the patient was turned over to Dr. Dada Stevens for left carotid intervention, please refer to his cardiac catheterization note for complete details. Findings: Comparison is made to prior study dated 12/26/2014. Selective left common carotid artery catheterization and carotid angiography: The cervical portions of the left carotid vasculature demonstrate interval progression of atherosclerotic plaque formation at the carotid bifurcation, with associated ulceration, and now a resultant (greater than 80%) stenosis of the left internal carotid origin utilizing NASCET criteria. ??The intracranial circulation was opacified via a left common carotid injection, demonstrating no aneurysm or vascular malformation. ??No significant stenosis or large vessel occlusion. ??No changes of vasculitis or vasospasm. ??The dural venous sinuses are patent. Impression: Interval progression of plaque at the left internal carotid origin, with now a greater than 80% stenosis and associated large ulceration. ??Please refer to Dr. Stevens cardiac catheterization note for details regarding left carotid intervention. us Dada Stevens MD CV CARDIAC CATH ORDERABLES Fi nal Result * (ABNORMAL) POC Activated Clotting Time (02/08/2019 11:26 AM EDT) Activated Clotting Time 235(H) 82 - 152 Seconds 02/08/2019 2:19 PM EDT [facility] Comment:Serial Number: [id number]: [id number] Blood 02/08/2019 11:2 6 AM EDT 02/08/2019 2:19 PM EDT us Dada Stevens MD POINT OF CARE TEST ORDERABLES Final Result Performing Organization Address [facility] Co de Phone Number [facility]
[address] [place] [address], * (ABNORMAL) POC Activated Clotting Time (02/08/2019 11:07 AM EDT) Activated Clotting Time 263(H) 82 - 152 Seconds 02/08/2019 2:19 PM EDT [facility] Comment:Serial Number: [id number]: [id number] Blood 02/08/2019 11:0 7 AM EDT 02/08/2019 2:19 PM EDT us Dada Stevens MD POINT OF CARE TEST ORDERABLES Final Result Performing Organization Address [facility] Co de Phone Number [facility]
[address] [place] [address], * ECG 12 Lead (02/08/2019 10:03 AM EDT) 02/08/2019 10:0 3 AM EDT 02/10/2019 8:18 PM EDT Narrative ECG - 02/10/2019 8:19 PM EDT Test Reason : PRE Blood Pressure : / mmHG Vent. Rate : 060 BPM ? Atrial Rate : 060 BPM ?? P-R Int : 152 ms ?QRS Dur : 092 ms ?QT Int : 452 ms ? P-R-T Axes : 056 019 029 degrees ?? QTc Int : 452 ms Normal sinus rhythm Low voltage QRS Incomplete right bundle branch block Nonspecific T wave abnormality Abnormal ECG No previous ECGs available Confirmed by Olegario Rangel ([id number]) on 02/10/2019 8:18:58 PM Referred By: ??ALMA' ? Confirmed By:Olegario Rangel Procedure Note Olegario Rangel MD - 02/10/2019 Test Reason : PRE Blood Pressure : / mmHG Vent. Rate : 060 BPM Atrial Rate : 060 BPM P-R Int : 152 ms QRS Dur : 092 ms QT Int : 452 ms P-R-T Axes : 056 019 029 degrees QTc Int : 452 ms Normal sinus rhythm Low voltage QRS Incomplete right bundle branch block Nonspecific T wave abnormality Abnormal ECG No previous ECGs available Confirmed by Olegario Rangel ([id number]) on 02/10/2019 8:18:58 PM Referred By: AYSHA Confirmed By:Olegario Rangel us Mahsa Kauffman PA-C ECG ORDERABLES Cinthia l Result ECG * (ABNORMAL) POC CHEM 8 (02/08/2019 9:52 AM EDT) Glucose 114 70 - 130 mg/dL 02/08/2019 2:26 PM EDT [facility] BUN 18 8 - 26 mg/dL 02/08/2019 2:26 PM EDT [facility] Creatinine 1.00 0.60 - 1.30 mg/dL 02/08/2019 2:26 PM EDT [facility] Sodium 143 138 - 146 mmol/L 02/08/2019 2:26 PM EDT [facility] POC Potassium 3.7 3.5 - 4.9 mmol/L 02/08/2019 2:26 PM EDT [facility] Chloride 99 98 - 109 mmol/L 02/08/2019 2:26 PM EDT [facility] Total CO2 29 24 - 29 mmol/L 02/08/2019 2:26 PM EDT [facility] Hemoglobin 10.2(L) 12.0 - 17.0 g/dL 02/08/2019 2:26 PM EDT [facility] Comment:Serial Number: [id number]: [id number] Hematocrit 30(L) 38 - 51 % 02/08/2019 2:26 PM EDT [facility] Ionized Calcium 1.19(L) 1.20 - 1.32 mmol/L 02/08/2019 2:26 PM EDT [facility] Blood 02/08/2019 9:52 AM EDT 02/08/2019 2:26 PM EDT Dada Stevens MD POINT OF CARE TEST ORDERABLES Final Result [facility]
[address] [place] [address], * XR Chest PA & Lateral (02/08/2019 9:15 AM EDT) Anatomical Region Laterality Modality Body, Chest N/A Radiographic Chelsey ging 02/08/2019 9:17 AM EDT Impressions 02/08/2019 9:18 AM EDT Mildly hyperinflated lungs and chronic appearing interstitial lung changes. No acute chest disease is seen. This report was finalized on 02/08/2019 9:[address] Daniel Guadalupe MD. Narrative 02/08/2019 9:18 AM EDT EXAMINATION: XR CHEST PA AND LATERAL- INDICATION: pre-procedure; I65.22-Occlusion and stenosis of left carotid artery COMPARISON: NONE FINDINGS: Heart and pulmonary vessels are upper normal size. A couple of old healed right-sided rib fractures are noted. Lungs are well-expanded to mildly hyperinflated and clear except for some generalized coarsening of the interstitial markings, likely chronic. ? Procedure Note Daniel Guadalupe MD - 02/08/2019 EXAMINATION: XR CHEST PA AND LATERAL- INDICATION: pre-procedure; I65.22-Occlusion and stenosis of left carotid artery COMPARISON: NONE FINDINGS: Heart and pulmonary vessels are upper normal size. A couple of old healed right-sided rib fractures are noted. Lungs are well-expanded to mildly hyperinflated and clear except for some generalized coarsening of the interstitial markings, likely chronic. IMPRESSION: Mildly hyperinflated lungs and chronic appearing interstitial lung changes. No acute chest disease is seen. This report was finalized on 02/08/2019 9:[address] Daniel Guadalupe MD. Mahsa Kauffman PA-C IMG DIAGNOSTIC IMAGI NG ORDERABLES Final Result * Hemoglobin A1c (02/08/2019 8:44 AM EDT) Hemoglobin A1C 5.20 4.80 - 5.60 % 02/08/2019 1:33 PM EDT [facility] Blood Line / Unknown 02/08/2019 8: 44 AM EDT 02/08/2019 10:21 AM EDT Narrative [facility] - 02/08/2019 1:33 PM EDT Hemoglobin A1C Ranges: Increased Risk for Diabetes ??5.7% to 6.4% Diabetes ? >= 6.5% Diabetic Goal ?< 7.0% Mahsa Kauffman PA-C LAB BLOOD ORDERABLES Final Result [facility]
[address] [place] [address], [place] [phone] * (ABNORMAL) Comprehensive Metabolic Panel (02/08/2019 8:44 AM EDT) [facility] Signature Glucose 116(H) 65 - 99 mg/dL 02/08/2019 10:35 AM T [facility] BUN 19 8 - 23 mg/dL 02/08/2019 10:35 AM [facility] Creatinine 0.90 0.57 - 1.00 mg/dL 02/08/2019 10:35 AM T [facility] Sodium 143 136 - 145 mmol/L 02/08/2019 10:35 AM [facility] Potassium 3.6 3.5 - 5.2 mmol/L 02/08/2019 10:35 AM [facility] Chloride 101 98 - 107 mmol/L 02/08/2019 10:35 AM [facility] CO2 29.0 22.0 - 29.0 mmol/L 02/08/2019 10:35 AM [facility] Calcium 9.4 8.6 - 10.5 mg/dL 02/08/2019 10:35 AM [facility] Total Protein 7.7 6.0 - 8.5 g/dL 02/08/2019 10:35 AM [facility] Albumin 4.30 3.50 - 5.20 g/dL 02/08/2019 10:35 AM [facility] ALT (SGPT) 31 1 - 33 U/L 02/08/2019 10:35 AM [facility] AST (SGOT) 35(H) 1 - 32 U/L 02/08/2019 10:35 AM [facility] Alkaline Phosphatase 56 39 - 117 U/L 02/08/2019 10:35 AM [facility] Total Bilirubin 0.5 0.2 - 1.2 mg/dL 02/08/2019 10:35 AM [facility] eGFR Non Amer 61 >60 mL/min/1.7 3 02/08/2019 10:35 AM [facility] Globulin 3.4 gm/dL 02/08/2019 10:35 AM EDT [facility] A/G Ratio 1.3 g/dL 02/08/2019 10:35 AM EDT [facility] BUN/Creatinine Ratio 21.1 7.0 - 25.0 02/08/2019 10:35 AM EDT [facility] Anion Gap 13.0 mmol/L 02/08/2019 10:35 AM EDT [facility] Blood Line / Unknown 02/08/2019 8: 44 AM EDT 02/08/2019 10:13 AM EDT Narrative [facility] - 02/08/2019 10:35 AM EDT GFR Normal >60 Chronic Kidney Disease <60 Kidney Failure <15 Mahsa Kauffman PA-C LAB BLOOD ORDERABLES Final Result [facility]
[address] [place] [address], * CBC (No Diff) (02/08/2019 8:44 AM EDT) WBC 5.07 3.40 - 10.80 10*3/mm3 02/08/2019 10:26 AM EDT [facility] RBC 4.18 3.77 - 5.28 10*6/mm3 02/08/2019 10:26 AM EDT [facility] Hemoglobin 12.7 12.0 - 15.9 g/dL 02/08/2019 10:26 AM EDT [facility] Hematocrit 38.5 34.0 - 46.6 % 02/08/2019 10:26 AM EDT [facility] MCV 92.1 79.0 - 97.0 fL 02/08/2019 10:26 AM EDT [facility] MCH 30.4 26.6 - 33.0 pg 02/08/2019 10:26 AM EDT [facility] MCHC 33.0 31.5 - 35.7 g/dL 02/08/2019 10:26 AM EDT [facility] RDW 13.6 12.3 - 15.4 % 02/08/2019 10:26 AM EDT [facility] RDW-SD 45.5 37.0 - 54.0 fl 02/08/2019 10:26 AM EDT [facility] MPV 10.3 6.0 - 12.0 fL 02/08/2019 10:26 AM EDT [facility] Platelets 179 140 - 450 10*3/mm3 02/08/2019 10:26 AM EDT [facility] Blood Line / Unknown 02/08/2019 8: 44 AM EDT 02/08/2019 10:21 AM EDT Mahsa Kauffman PA-C LAB BLOOD ORDERABLES Final Result [facility]
[address] [place] [address], * SCANNED - LABS (02/08/2019) [facility] LAB BLOOD ORDERABLES Final Re sult * SCANNED - CARDIOLOGY (02/08/2019) Anatomical Region Laterality Modality Other [facility] CV CARDIAC SERVICES ORDERABLE S Final Result * SCANNED - TELEMETRY (02/08/2019) Anatomical Region Laterality Modality Other [facility] ECG ORDERABLES Final Result * SCANNED - TELEMETRY (02/08/2019) Anatomical Region Laterality Modality Other [facility] ECG ORDERABLES Final Result * SCANNED - TELEMETRY (02/08/2019) Anatomical Region Laterality Modality Other [facility] ECG ORDERABLES Final Result documented in this encounter Visit Diagnoses Diagnosis Stenosis of left carotid artery- Primary Occlusion and stenosis of carotid artery without mention of cerebral infarction Stenosis of left carotid artery Occlusion and stenosis of carotid artery without mention of cerebral infarction Stenosis of left carotid artery Occlusion and stenosis of carotid artery without mention of cerebral infarction documented in this encounter Admitting Diagnoses Diagnosis Stenosis of left carotid artery Occlusion and stenosis of carotid artery without mention of cerebral infarction documented in this encounter Administered Medications Inactive Administered Medications - up to 3 most recent administrations Medication Order MAR Action Action Date Dose Rate Site aspirin EC tablet 81 mg 81 mg, Oral, Daily, First dose on Mon02/09/19 at 0900, Herbal/drug interaction: Avoid use with ginkgo biloba. Do not crush or chew. Do not exceed 4 grams of aspirin in a 24 hr period. If given for pain, use the following pain scale: Mild Pain = Pain Score of 1-3, CPOT 1-2 Moderate Pain = Pain Score of 4-6, CPOT 3-4 Severe Pain = Pain Score of 7-10, CPOT 5-8 Given 02/09/2019 8:58 AM EDT 81 mg atorvastatin (LIPITOR) tablet 10 mg 10 mg, Oral, Nightly, First dose on Mon02/08/19 at 2100, Avoid grapefruit juice. Given 02/08/2019 8:15 PM EDT 10 mg clopidogrel (PLAVIX) tablet 75 mg 75 mg, Oral, Daily, First dose on 02/09/19 at 0900 Given 02/09/2019 8:58 AM EDT 75 mg fentaNYL citrate (PF) (SUBLIMAZE) injection As Needed, Starting on Mon02/08/19 at 1039 Given 02/08/2019 11:31 AM EDT 50 mcg Given 02/08/2019 10:39 AM EDT 50 mcg ferrous sulfate tablet 325 mg 325 mg, Oral, Nightly, First dose (after last modification) on Mon02/08/19 at 2100, Swallow whole. Do not crush, split, or chew. Take with food if GI upset occurs. Given 02/08/2019 8:15 PM EDT 325 mg gabapentin (NEURONTIN) capsule 300 mg 300 mg, Oral, Every 12 Hours Scheduled, First dose on Mon02/08/19 at 2100, {ZARA} Given 02/09/2019 8:58 AM EDT 300 mg Given 02/08/2019 8:15 PM EDT 300 mg heparin (porcine) injection As Needed, Starting on Mon02/08/19 at 1059 Given 02/08/2019 10:59 AM EDT 8,000 Units HYDROcodone-acetaminoph en (NORCO) 5-325 MG per tablet 1 tablet 1 tablet, Oral, Every 8 Hours PRN, Moderate Pain, Starting on Mon02/08/19 at 1429, [ZARA] Do not exceed 4 grams of acetaminophen in a 24 hr period. If given for pain, use the following pain scale: Mild Pain = Pain Score of 1-3, CPOT 1-2 Moderate Pain = Pain Score of 4-6, CPOT 3-4 Severe Pain = Pain Score of 7-10, CPOT 5-8 iodixanol (VISIPAQUE) 320 MG/ML injection As Needed, Starting on Mon02/08/19 at 1144 Given 02/08/2019 11:44 AM EDT 150 mL ipratropium-albuterol (DUO-NEB) nebulizer solution 3 mL 3 mL, Nebulization, Every 4 Hours PRN, Shortness of Air, Starting on Mon02/08/19 at 1450 lidocaine PF 1% (XYLOCAINE) injection As Needed, Starting on Mon02/08/19 at 1042 Given 02/08/2019 10:42 AM EDT 5 mL Groin Right midazolam (VERSED) injection As Needed, Starting on Mon02/08/19 at 1039 Given 02/08/2019 10:39 AM EDT 2 mg niCARdipine (CARDENE-IV) 20 mg/200 mL (0.1 mg/mL) in 0.9% NaCl infusion 5-15 mg/hr (50-150 mL/hr), Intravenous, Titrated, Starting on Mon02/08/19 at 1147, Start nicardipine at 5 mg/hr and titrate up or down 2.5 mg/hr every 15 minutes to maintain SBP = or < 140 to a maximum rate of 15 mg/hr. 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 Given 02/09/2019 6:05 AM EDT 40 mg sertraline (ZOLOFT) tablet 100 mg 100 mg, Oral, Nightly, First dose on Mon02/08/19 at 2100 Given 02/08/2019 8:19 PM EDT 100 mg sodium chloride 0.9 % flush 3 mL 3 mL, Intravenous, Every 12 Hours Scheduled, First dose on Mon02/08/19 at 1147 Given 02/09/2019 9:01 AM EDT 3 mL Given 02/08/2019 8:20 PM EDT 3 mL Given 02/08/2019 12:34 PM EDT 3 mL traZODone (DESYREL) tablet 50 mg 50 mg, Oral, Nightly, First dose on Mon02/08/19 at 2100, Take with food. Caution: Look alike/sound alike drug alert Given 02/08/2019 8:18 PM EDT 50 mg vitamin B-12 (CYANOCOBALAMIN) tablet 1,000 mcg 1,000 mcg, Oral, 2 Times Daily, First dose on Mon02/08/19 at 2100 Given 02/09/2019 8:58 AM EDT 1,000 mcg Given 02/08/2019 8:16 PM EDT 1,000 mcg vitamin C (ASCORBIC ACID) tablet 1,500 mg 1,500 mg, Oral, Daily, First dose on Mon02/09/19 at 0900 Given 02/09/2019 8:58 AM EDT 1,500 mg documented in this encounter Active and Recently Administered Medications Times are shown in EDT. Scheduled Medication Order 02/07/2019 02/08/2019 02/09/2019 aspirin EC tablet 81 mg (CANCELED) 81 mg, Oral, Daily, First dose on Mon02/08/19 at 0913, Herbal/drug interaction: Avoid use with ginkgo biloba. Do not crush or chew. Do not exceed 4 grams of aspirin in a 24 hr period. If given for pain, use the following pain scale: Mild Pain = Pain Score of 1-3, CPOT 1-2 Moderate Pain = Pain Score of 4-6, CPOT 3-4 Severe Pain = Pain Score of 7-10, CPOT 5-8 1004 (Given - Provider: Griffin Dsouza RN)1033 (MAR Hold - Provider: Automatic Transfer Provider - Reason: Unreviewed Transfer Orders)1403 (MAR Unhold - Provider: Henry Martel) aspirin EC tablet 81 mg 81 mg, Oral, Daily, First dose on Mon02/09/19 at 0900, Herbal/drug interaction: Avoid use with ginkgo biloba. Do not crush or chew. Do not exceed 4 grams of aspirin in a 24 hr period. If given for pain, use the following pain scale: Mild Pain = Pain Score of 1-3, CPOT 1-2 Moderate Pain = Pain Score of 4-6, CPOT 3-4 Severe Pain = Pain Score of 7-10, CPOT 5-8 0858 (Given - Provid er: Breana Hill RN) atorvastatin (LIPITOR) tablet 10 mg 10 mg, Oral, Nightly, First dose on Mon02/08/19 at 2100, Avoid grapefruit juice. 2014 (Given - Provider: Maria Del Rosario Elaine RN) clopidogrel (PLAVIX) tablet 600 mg (COMPLETED)(Linked Group 1) 600 mg, Oral, Once, On Mon02/08/19 at 0824, For 1 dose 1003 (Given - Provider: Griffin Dsouza RN) clopidogrel (PLAVIX) tablet 75 mg(Linked Group 1) 75 mg, Oral, Daily, First dose on Mon02/09/19 at 0900 0858 (Given - Provid er: Breana Hill RN) ferrous sulfate tablet 325 mg 325 mg, Oral, Nightly, First dose (after last modification) on Mon02/08/19 at 2100, Swallow whole. Do not crush, split, or chew. Take with food if GI upset occurs. 2014 (Given - Provider: Maria Del Rosario Elaine RN) gabapentin (NEURONTIN) capsule 300 mg 300 mg, Oral, Every 12 Hours Scheduled, First dose on Mon02/08/19 at 2100, {ZARA} 2014 (Given - Provider: Maria Del Rosario Elaine RN) 0858 (Given - Provider: Breana Hill RN) pantoprazole (PROTONIX) EC tablet 40 mg 40 mg, Oral, Every [employer] Service Mechanic, First dose on 02/09/19 at 0600, Swallow whole; do not crush, split, or chew. 0605 (Given - Provid er: Maria Del Rosario Elaine RN) sertraline (ZOLOFT) tablet 100 mg 100 mg, Oral, Nightly, First dose on Mon02/08/19 at 2100 2018 (Given - Provider: Maria Del Rosario Elaine RN) sodium chloride 0.9 % flush 3 mL (CANCELED) 3 mL, Intravenous, Every 12 Hours Scheduled, First dose on Mon02/08/19 at 0900 1008 (Given - Provider: Griffin Dsouza RN) sodium chloride 0.9 % flush 3 mL 3 mL, Intravenous, Every 12 Hours Scheduled, First dose on Mon02/08/19 at 1147 1234 (Given - Provider: Breana Hill RN)2019 (Given - Provider: Maria Del Rosario Elaine RN) 09 (Given - Provider: Breana Hill RN) sodium chloride 0.9 % infusion 1.5 mL/kg/hr ? 78.3 kg (117.45 mL/hr, rounded to 117.5 mL/hr), Intravenous, Administer over 4 Hours, Once, On Mon02/08/19 at 1845, For 1 dose, POSEIDON LVEDP >18 Infuse x 4 hrs post Cath 1805 (Not Given - Provider: Breana Hill RN - Reason: Other - Comment: Previously given) traZODone (DESYREL) tablet 50 mg 50 mg, Oral, Nightly, First dose on Mon02/08/19 at 2100, Take with food. Caution: Look alike/sound alike drug alert 2017 (Given - Provider: Maria Del Rosario Elaine RN) vitamin B-12 (CYANOCOBALAMIN) tablet 1,000 mcg 1,000 mcg, Oral, 2 Times Daily, First dose on Mon02/08/19 at 2100 2015 (Given - Provider: Maria Del Rosario Elaine RN) 0858 (Given - Provider: Breana Hill RN) vitamin C (ASCORBIC ACID) tablet 1,500 mg 1,500 mg, Oral, Daily, First dose on Mon02/09/19 at 0900 0858 (Given - Provid er: Breana Hill RN) Continuous Medication Order 02/07/2019 02/08/2019 02/09/2019 niCARdipine (CARDENE-IV) 20 mg/200 mL (0.1 mg/mL) in 0.9% NaCl infusion 5-15 mg/hr (50-150 mL/hr), Intravenous, Titrated, Starting on Mon02/08/19 at 1147, Start nicardipine at 5 mg/hr and titrate up or down 2.5 mg/hr every 15 minutes to maintain SBP = or < 140 to a maximum rate of 15 mg/hr. 1213 (Not Given - Provider: Breana Hill RN - Reason: Order parameters not met)1233 (New Bag - Provider: Breana Hill RN)1300 (Rate/Dose Change - Provider: Breana Hill RN)1600 (Stopped - Provider: Breana Hill RN) phenylephrine (JUNAID-SYNEPHRINE) 50 mg in sodium chloride 0.9 % 250 mL (0.2 mg/mL) infusion 0.5-3 mcg/kg/min ? 78.3 kg (11.745-70.47 mL/hr, rounded to 11.75-70.47 mL/hr), Intravenous, Titrated, Starting on Mon02/08/19 at 1147, Start at 0.5 mcg/kg/min and titrate up or down by 0.3 mcg/kg/min every 5 minutes to maintain SBP = or > 90 mm Hg or MAP = or > 65 to a dose maximum of 3 mcg/kg/min. Contact provider if higher dose needed. {BKC} 1213 (Not Given - Provider: Breana Hill RN - Reason: Order parameters not met) sodium chloride 0.9 % infusion (CANCELED) 1-3 mL/kg/hr ? 78.3 kg (78.3-234.9 mL/hr), Intravenous, Continuous, Starting on Mon02/08/19 at 0840, Begin Infusion at 3 mL/kg/hr (Max Rate 330 mL/hr) For 1 Hour Prior to Receiving IV Contrast, Then Decrease to 1 mL/kg/hr (Max Rate 110 mL/hr). Stop Infusion 6 Hours After Contrast Infused or Total of 1 Liter of NS Delivered 1007 (New Bag - Provider: Griffin Dsouza RN)1215 (Stopped - Provider: Breana Hill RN - Comment: Was not present on arrival to unit. Per cath lab radiological technologist 1 L NS Bolus already completed.) PRN Medication Order 02/07/2019 02/08/2019 02/09/2019 fentaNYL citrate (PF) (SUBLIMAZE) injection (CANCELED) As Needed, Starting on Mon02/08/19 at 1039 1039 (Given - Provider: Davina Figueroa RN)1131 (Given - Provider: Lisa Figueroa RN) heparin (porcine) injection (CANCELED) As Needed, Starting on Mon02/08/19 at 1059 1059 (Given - Provider: Davina Figueroa RN) HYDROcodone-acetaminophen (NORCO) 5-325 MG per tablet 1 tablet 1 tablet, Oral, Every 8 Hours PRN, Moderate Pain, Starting on Mon02/08/19 at 1429, [ZARA] Do not exceed 4 grams of acetaminophen in a 24 hr period. If given for pain, use the following pain scale: Mild Pain = Pain Score of 1-3, CPOT 1-2 Moderate Pain = Pain Score of 4-6, CPOT 3-4 Severe Pain = Pain Score of 7-10, CPOT 5-8 iodixanol (VISIPAQUE) 320 MG/ML injection (CANCELED) As Needed, Starting on Mon02/08/19 at 1144 1144 (Given - Provider: Dada Stevens MD) ipratropium-albuterol (DUO-NEB) nebulizer solution 3 mL 3 mL, Nebulization, Every 4 Hours PRN, Shortness of Air, Starting on Mon02/08/19 at 1450 lidocaine PF 1% (XYLOCAINE) injection (CANCELED) As Needed, Starting on Mon02/08/19 at 1042 1042 (Given - Provider: Vineet England MD) midazolam (VERSED) injection (CANCELED) As Needed, Starting on Mon02/08/19 at 1039 1039 (Given - Provider: Davina Figueroa RN) O2 (OXYGEN) (CANCELED) As Needed, Starting on Mon02/08/19 at 1037 1037 (Given - Provider: Davina Figueroa RN) sodium chloride 0.9 % flush 3-10 mL 3-10 mL, Intravenous, As Needed, Line Care, Starting on Mon02/08/19 at 1145 Linked Groups Order Group 1: clopidogrel (PLAVIX) tablet 600 mg (COMPLETED)Jump to med 600 mg, Oral, Once, On Mon02/08/19 at 0824, For 1 dose And clopidogrel (PLAVIX) tablet 75 mgJump to med 75 mg, Oral, Daily, First dose on 02/09/19 at 0900 documented in this encounter Care Teams Parcel Post Officer Relationship Specialty Start Date End Date Nabil Gilbert MD [address] [facility] [address] [place] [address] PCP - General 12/22/15 documented as of this encounter
--- OUTSIDE RECORDS SUMMARY | 2024-08-28 16:01 | XMS_ITS | Encounter Summary ---
Author Organization [facility] Address [address] [place] [address] Care Team Providers Care Gore Inserter Name Role Phone Nabil Gilbert MD Primary Care Provider [phone] Reason for Referral * Diagnostic Imaging (Routine) - Closed Specialty Diagnoses / Procedures Referred By Juan malone Referred To Contact Diagnoses Stenosis of left carotid artery Procedures Duplex Carotid Ultrasound Dada Zhao MD Phone: tel: fax: [address] [address] Phone: tel: Referral ID Status Reason Start Date Expiration Date Visits Re quested Visits Authorized [id number] Closed 07/16/2019 07/15/2020 1 1 Reason for Visit * Diagnostic Imaging (Routine) - Closed Specialty Diagnoses / Procedures Referred By Juan malone Referred To Contact Diagnoses Stenosis of left carotid artery Procedures Duplex Carotid Ultrasound Dada Zhao MD Phone: tel: fax: [address] [address] Phone: tel: Referral ID Status Reason Start Date Expiration Date Visits Re quested Visits Authorized [id number] Closed 07/16/2019 07/15/2020 1 1 Encounter Details Date Type Department Care Team (Late st Contact Info) Description 05/12/2020 12:30 PM EDT - 05/12/2020 11:59 PM EDT Hospital Encounter [facility] [address] [place] [id number] Dada Stevens MD [address] [place] [address] LICA stenosis s/p stent per Dr. England 02/08/19 ; Stenosis of left carotid artery Discharge Disposition: Home or Self Care Social History Tobacco Use Types Packs/Day Years Used Date Smoking Tobacco: Former Cigarettes 2009 Smokeless Tobacco: Never Alcohol Use Standard [...] Sign Reading Time Taken Comments Blood Pressure - - Pulse - - Temperature - - Respiratory Rate - - Oxygen Saturation - - Inhaled Oxygen Concentration - - Weight - - Height 160 cm (5' 2.99 ) 05/12/2020 12:30 PM EDT Body Mass Index - - documented in this encounter Medications at Time of Discharge amLODIPine (NORVASC) 5 MG tablet Take 1 tablet by mouth Daily. 30 tablet 11 05/12/2020 aspirin 81 MG tablet Take 81 mg [...] tablet Take 1,500 mg by mouth Daily. documented as of this encounter Plan of Treatment Not on file documented as of this encounter Procedures Procedure Name Priority Date/Time Associated Diagnosis Comments DUPLEX CAROTID BILATERAL CAR Routine 05/12/2020 1:03 PM EDT Stenosis of left carotid artery documented in this encounter Results * Duplex Carotid Ultrasound CAR (05/12/2020 1:03 PM EDT) Prox CCA PSV 86.1 cm/sec [facility] Prox CCA PSV 92.4 cm/sec [facility] Prox CCA EDV 17.0 cm/sec [facility] Prox CCA EDV 10.7 cm/sec [facility] left Mid CCA PSV 81.2 cm/sec [facility] Right Mid CCA PSV 70.2 cm/sec [facility] left Mid CCA EDV 17.9 cm/sec [facility] right Mid CCA EDV 15.2 cm/sec [facility] Dist CCA PSV 130.1 cm/sec [facility] Dist CCA PSV 69.8 cm/sec [facility] Dist CCA EDV 33.3 cm/sec [facility] Dist CCA EDV 16.2 cm/sec [facility] CCA ratio dayo 80.8 cm/sec [facility] CCA ratio dayo 69.7 cm/sec [facility] Prox ECA PSV 97.4 cm/sec [facility] Prox ECA PSV 61.3 cm/sec [facility] Prox ECA EDV 13.4 cm/sec [facility] Prox ECA EDV 6.7 cm/sec [facility] Prox ICA PSV 101.8 cm/sec [facility] Prox ICA PSV 47.4 cm/sec [facility] Prox ICA EDV 28.9 cm/sec [facility] Prox ICA EDV 12.6 cm/sec [facility] Mid ICA PSV 150.2 cm/sec [facility] Mid ICA PSV 87.7 cm/sec [facility] Mid ICA EDV 39.3 cm/sec [facility] Mid ICA EDV 24.9 cm/sec [facility] Dist ICA PSV 167.6 cm/sec [facility] Dist ICA PSV 99.7 cm/sec [facility] Dist ICA EDV 41.0 cm/sec [facility] Dist ICA EDV 30.0 cm/sec [facility] ICA ratio dayo 149.0 cm/sec [facility] ICA ratio dayo 87.3 cm/sec [facility] Vertebral A PSV 96.8 cm/sec [facility] Vertebral A PSV 59.1 cm/sec [facility] Vertebral A EDV 19.5 cm/sec [facility] Vertebral A EDV 12.6 cm/sec [facility] ICA/CCA ratio 1.8 [facility] ICA/CCA ratio 1.3 [facility] Prox SCLA PSV 136.2 cm/sec [facility] Prox SCLA PSV 273.0 cm/sec [facility] Prox SCLA EDV 15.7 cm/sec [facility] Left CCA Stent hidden 1 cm/s [facility] CVPROX LEFT ICA HIDDEN LRR 1 cm [facility] Lt. Prx to Stent 77 cm/s [facility] Lt. Prox Stent 119 cm/s [facility] Lt Mid Stent 129 cm/s [facility] Lt Distal Stent 101 cm/s [facility] Lt Dist To Stent 149 cm/s [facility] Lt Prx to stent EDV 18.89 cm/s [facility] Lt. Prx stent 27.7 cm/s [facility] Lt Mid Stent 32.7 cm/s [facility] CV VAS CAROTID LEFT DISTAL TO STENT EDV 38.4 cm/s [facility] CV VAS CAROTID LEFT DISTAL STENT EDV 28.3 cm/s [facility] Left arm BP 119/65 mmHg [facility] Right arm BP 132/55 mmHg [facility] Anatomical Region Laterality Modality Ultrasound 05/12/2020 12:4 2 PM EDT Narrative 05/12/2020 3:00 PM EDT ?? There is <50% right internal carotid stenosis. ?? The left internal carotid artery is stented and restenosis is NOT present. ?? Bilateral vertebral artery flow is antegrade. Study Findings ? ? Right CCA Prox: Irregular calcified heterogeneous plaque present. ? ? Right CCA Dist: Irregular calcified heterogeneous plaque present. ? ? Right ICA Prox: Irregular calcified heterogeneous plaque present. ? ? Right ICA Mid: No plaque visualized. Tortuous vessel. ? ? Right ICA Dist: No plaque visualized. Tortuous vessel. ? ? Right ECA: Irregular calcific heterogeneous plaque present. ? ? Right Vertebral: Antegrade flow noted. ? ? Left CCA Prox: Irregular calcified heterogeneous plaque present. ? ? Left ICA Prox: Stented vessel. ? ? Left ICA Mid: No plaque visualized. Tortuous vessel. ? ? Left ICA Dist: No plaque visualized. Tortuous vessel. ? ? Left ECA: Irregular calcific heterogeneous plaque present. ? ? Left Vertebral: Antegrade flow noted. Dada Stevens MD CV VASCULAR ORDERABLES Final Result documented in this encounter Visit Diagnoses Diagnosis LICA stenosis s/p stent per Dr. Given 02/08/19 Occlusion and stenosis of carotid artery without mention of cerebral infarction documented in this encounter Care Teams Gore Inserter Relationship Specialty Start Date End Date Nabil Gilbert MD [address] [facility] [address] [place] [address] PCP - General 12/22/15 documented as of this encounter
--- OUTSIDE RECORDS SUMMARY | 2024-08-28 16:01 | XMS_ITS | Encounter Summary ---
Author Organization [facility] Address [address] [place] [address] Care Team Providers Care Food And Drug Research Scientist Name Role Phone Nabil Gilbert MD Primary Care Provider [phone] Reason for Referral * (Routine) - Closed Specialty Diagnoses / Procedures Referred By Contac t Referred To Contact Diagnoses Stenosis of left carotid artery Procedures Carotid Stent Dada Stevens MD Phone: tel: fax: Referral ID Status Reason Start Date Expiration Date Visits Re quested Visits Authorized [id number] Closed 02/08/2019 02/08/2020 1 1 * (Routine) - Closed Specialty Diagnoses / Procedures Referred By Contac t Referred To Contact Diagnoses Stenosis of left carotid artery Procedures Invasive peripheral vascular study Dada Stevens MD Phone: tel: fax: Referral ID Status Reason Start Date Expiration Date Visits Re quested Visits Authorized [id number] Closed 02/08/2019 02/08/2020 1 1 * (Routine) - Closed Specialty Diagnoses / Procedures Referred By Contac t Referred To Contact Diagnoses Stenosis of left carotid artery Procedures Carotid Stent Dada Stevens MD Phone: tel: fax: Referral ID Status Reason Start Date Expiration Date Visits Re quested Visits Authorized [id number] Closed 01/24/2019 01/24/2020 1 1 Reason for Visit * Auth/Cert Specialty Diagnoses / Procedures Referred By Contac t Referred To Contact Diagnoses Stenosis of left carotid artery CELY Procedures VT TCAT IV STENT CRV CRTD ART EMBOLIC PROTECJ Carotid stent, LICA Referral ID Status Reason Start Date Expiration Date Visits Re quested Visits Authorized [id number] 1 1 Encounter Details Date Type Department Care Team (Late st Contact Info) Description 02/08/2019 8:23 AM EDT - 02/09/2019 11:33 AM EDT Hospital Encounter [facility] 2B ICU [address] [place] [id number] Dada Stevens MD [address] [place] [address] Stenosis of left carotid artery Discharge Disposition: Home or Self Care Social History Tobacco Use Types Packs/Day Years Used Date Smoking Tobacco: Former Cigarettes 2 30 1 - 2009 Smokeless Tobacco: Never Alcohol Use [...] Sign Reading Time Taken Comments Blood Pressure 146/69 02/09/2019 11:00 AM EDT Pulse 63 02/09/2019 11:00 AM EDT Temperature 36.4 ??C (97.5 ??F) 02/09/2019 8:00 AM ED T Respiratory Rate 16 02/09/2019 10:00 AM EDT Oxygen Saturation 95% 02/09/2019 11:00 AM EDT Inhaled Oxygen Concentration - - Weight 78 kg (172 lb) 02/08/2019 5:21 PM EDT Height 160 cm (5' 2.99 ) 02/08/2019 5:21 PM EDT Body Mass Index 30.48 02/08/2019 5:21 PM EDT documented in this encounter Discharge Summaries * William England MD - 02/09/2019 10:08 AM EDT PATIENT: BERNICE NAVARRETE DATE OF : 1945 VISIT ID: [id number] PRIMARY CARE: Nabil Gilbert MD ADMITTING PHYSICIAN: [...] Follow up. Specialty: Family Medicine Contact information: [facility] [address] [facility] [address] [facility] [address] Dada Stevens MD. Schedule an appointment as soon as possible for a visit in 3 month(s). Specialty: Cardiology Why: Cancel July appt. She needs appt in 3 months Contact information: [address] [facility] [address] [facility] [address] documented in this encounter Discharge Instructions * Attachments The following attachments cannot be sent through Care Everywhere. * Coronary Angiogram With Stent (Paraguayan) * Coronary Angiogram With Stent Care After (Paraguayan) * Clopidogrel tablets (Paraguayan) documented in this encounter Medications at Time [...] from the original note were not included. [facility] Underwriter Note 02/08/2019 Hospital Day: 0 Day of Surgery LICA stent placement Ms. Bernice Navarrete, 73 y.o. female is followed for: LICA stenosis s/p stent per Dr. England 02/08/19 Asymptomatic mild right ICA stenosis Hypertension Hyperlipidemia GERD Former smoker quit in 2009 SUBJECTIVE Bernice Navarrete is a 73 y.o. female that presented to [facility] on 02/08 for elective left ICA [...] She was brought to 2B ICU fromthe lift slab operator and remains on Nicardipine with acceptable BP. [...] social history were reviewed and updated in [facility] as appropriate. OBJECTIVE BP 126/68 Pulse 69 [...] Output (last day) 02/07 0701 - 02/08 0700 02/08 07 - 02/09 0700 I.V. (mL/kg) 59.5 [...] not include procedure time). Alyse Lau APRN, [facility] Pulmonary and Critical Care Nabil Raman MD Pulmonary and Critical Care Medicine 02/08/19 2:50 PM documented in this encounter H&P Notes * Dada Stevens MD - 02/08/2019 8:40 AM EDT Pre-cardiac Catheterization History and Physical [facility] at [facility] Patient: Bernice Navarrete : 1945 PCP: Nabil Gilbert MD PHONE: [phone] DATE: 02/08/2019 ID: Bernice Nvaarrete is a 73 y.o. female resident of [place], [place] CC: LICA stenosis PROBLEM LIST: 1. Carotid artery disease: a. Cerebral angiogram, [facility], 11/21/2014: Bilateral patent vertebral arteries with lessthan [...] and she understands and wishes to proceed. I, Dada Stevens MD, personally performed the services described as documented by the above named individual. I have made any necessary edits and it is both accurate and complete 02/08/2019 12:02 PM Electronically signed by Mahsa Kauffman PA-C, 02/08/19, 9:08 AM. documented in this encounter Nursing Notes * Maria Del Rosario Elaine, RN - 02/09/2019 5:08 AM EDT Problem: [...] change OTHER Outcome Summary Received patient from lift slab operator for angiogram with stent placement to the [...] OR Notes * Brief Op Note - aSmanta, William De La Cruz MD - 02/08/2019 10:33 AM EDT CAROTID [...] 12-LEAD STAT 02/08/2019 10:03 AM EDT POCT [id number] CT Routine 02/08/2019 9:52 AM EDT XR [...] CBC Auto Differential (02/09/2019 5:43 AM EDT) [facility] WBC 4.82 3.40 - 10.80 10*3/mm3 02/09/2019 6:40 AM EDT [facility] RBC 3.76(L) 3.77 - 5.28 10*6/mm3 02/09/2019 6:40 AM EDT [facility] Hemoglobin 11.5(L) 12.0 - 15.9 g/dL 02/09/2019 6:40 AM EDT [facility] Hematocrit 33.8(L) 34.0 - 46.6 % 02/09/2019 6:40 AM EDT [facility] MCV 89.9 79.0 - 97.0 fL 02/09/2019 6:40 AM EDT [facility] MCH 30.6 26.6 - 33.0 pg 02/09/2019 6:40 AM EDT [facility] MCHC 34.0 31.5 - 35.7 g/dL 02/09/2019 6:40 AM EDT [facility] RDW 13.2 12.3 - 15.4 % 02/09/2019 6:40 AM EDT [facility] RDW-SD 43.1 37.0 - 54.0 fl 02/09/2019 6:40 AM EDT [facility] MPV 9.6 6.0 - 12.0 fL 02/09/2019 6:40 AM EDT [facility] Platelets 154 140 - 450 10*3/mm3 02/09/2019 6:40 AM EDT [facility] Neutrophil % 60.7 42.7 - 76.0 % 02/09/2019 6:40 AM EDT [facility] Lymphocyte % 26.6 19.6 - 45.3 % 02/09/2019 6:40 AM EDT [facility] Monocyte % 10.4 5.0 - 12.0 % 02/09/2019 6:40 AM EDT [facility] Eosinophil % 1.5 0.3 - 6.2 % 02/09/2019 6:40 AM EDT [facility] Basophil % 0.4 0.0 - 1.5 % 02/09/2019 6:40 AM EDT [facility] Immature Grans % 0.4 0.0 - 0.5 % 02/09/2019 6:40 AM EDT [facility] Neutrophils, Absolute 2.93 1.70 - 7.00 10*3/mm3 02/09/2019 6:40 AM EDT [facility] Lymphocytes, Absolute 1.28 0.70 - 3.10 10*3/mm3 02/09/2019 6:40 AM EDT [facility] Monocytes, Absolute 0.50 0.10 - 0.90 10*3/mm3 02/09/2019 6:40 AM EDT [facility] Eosinophils, Absolute 0.07 0.00 - 0.40 10*3/mm3 02/09/2019 6:40 AM EDT [facility] Basophils, Absolute 0.02 0.00 - 0.20 10*3/mm3 02/09/2019 6:40 AM EDT [facility] Immature Grans, Absolute 0.02 0.00 - 0.05 10*3/mm3 02/09/2019 6:40 AM EDT [facility] Blood Venipuncture / Unknown 02/09/2019 5:43 AM EDT 02/09/2019 6:18 AM EDT us William England MD LAB BLOOD ORDERABLES Final Res ult Performing Organization Address [facility] Co de Phone Number [facility]
[address] [place] [address], * Troponin (02/09/2019 5:43 AM EDT) Troponin T <0.010 0.000 - 0.030 ng/mL 02/09/2019 7:12 AM EDT [facility] Blood Venipuncture / Unknown 02/09/2019 5:43 AM EDT 02/09/2019 6:29 AM EDT Narrative [facility] - 02/09/2019 7:12 AM EDT Troponin T Reference Range: <= 0.03 ng/mL- ?? Negative for AMI >0.03 ng/mL- ? Abnormal for myocardial necrosis. ??Clinicians would have to utilize clinical acumen, EKG, Troponin and serial changes to determine if it is an Acute Myocardial Infarction or myocardial injury due to an underlying chronic condition. us William England MD LAB BLOOD ORDERABLES Final Res ult Performing Organization Address [facility] Co de Phone Number [facility]
[address] [place] [address], [place] [phone] * (ABNORMAL) Basic Metabolic Panel (02/09/2019 5:43 AM EDT) Glucose 108(H) 65 - 99 mg/dL 02/09/2019 7:16 AM EDT [facility] BUN 15 8 - 23 mg/dL 02/09/2019 7:16 AM EDT [facility] Creatinine 0.82 0.57 - 1.00 mg/dL 02/09/2019 7:16 AM EDT [facility] Sodium 138 136 - 145 mmol/L 02/09/2019 7:16 AM EDT [facility] Potassium 4.0 3.5 - 5.2 mmol/L 02/09/2019 7:16 AM EDT [facility] Chloride 101 98 - 107 mmol/L 02/09/2019 7:16 AM EDT [facility] CO2 25.0 22.0 - 29.0 mmol/L 02/09/2019 7:16 AM EDT [facility] Calcium 9.4 8.6 - 10.5 mg/dL 02/09/2019 7:16 AM EDT [facility] eGFR Non Amer 68 >60 mL/min/1.7 3 02/09/2019 7:16 AM EDT [facility] BUN/Creatinine Ratio 18.3 7.0 - 25.0 02/09/2019 7:16 AM EDT [facility] Anion Gap 12.0 mmol/L 02/09/2019 7:16 AM EDT [facility] Blood Venipuncture / Unknown 02/09/2019 5:43 AM EDT 02/09/2019 6:29 AM EDT Narrative [facility] - 02/09/2019 7:16 AM EDT GFR Normal >60 Chronic Kidney Disease <60 Kidney Failure <15 us William England MD LAB BLOOD ORDERABLES Final Res ult [facility]
[address] [place] [address], [place] [phone] * Duplex Carotid - Left Ultrasound CAR (02/08/2019 5:21 PM EDT) Prox CCA PSV 88 cm/sec [facility] Prox CCA EDV 14 cm[facility] left Mid CCA PSV 75 cm/sec [facility] left Mid CCA EDV 15 cm/sec [facility] Dist CCA PSV 66 cm/sec [facility] Dist CCA EDV 11 cm/sec [facility] Prox ECA PSV 75 cm/[facility]x ECA EDV 8 cm/[facility] Prox ICA PSV 75 cm[facility]sec [facility] Prox ICA EDV 16 cm/sec [facility] Mid ICA PSV 77 cm[facility] Mid ICA EDV 18 cm/sec [facility] Dist ICA PSV 106 cm/sec [facility] Dist ICA EDV 25 cm/sec [facility] Vertebral A PSV 80 cm/[facility] Vertebral A EDV 20 cm/[facility] Prox SCLA PSV 147.7 cm/sec [facility] CVPROX LEFT ICA HIDDEN LRR 1 cm [facility] CV MID LEFT ICA HIDDEN LRR 1 cm [facility] Lt. Prox Stent 57 cm/s [facility] Lt Mid Stent 56 cm/s [facility] Lt Distal Stent 82 cm/[facility] Lt. Prx stent 12 cm/s [facility] Lt Mid Stent 14 cm/s [facility] CV VAS CAROTID LEFT DISTAL STENT EDV 19 cm/s [facility] Anatomical Region Laterality Modality Vascular, Head [...] protection with a large OLI-6 filter wire, SILK TOP HAT BODY MAKER of the extracranial internal carotid artery followed by the placement of a single [employer] carotid Wallstent across the injured area. Predilitation was carried out using a 3 x 25 mm NC Trek balloon. ??Post dilatation utilized a 5 x 30 mm Viatrac balloon. ?? Following the completion of this procedure and the review of an acceptable access site angiogram, the right common femoral artery was closed with an 8 Croatian VIP Angio-Seal device. This procedure was carried out under the CREST 2 registry. There were no complications to this procedure. ?? Following its completion, 6 Croatian pigtail was advanced across the aortic valve [...] separate report. ??Dr. england placed a 7 Croatian by 80 cm arrow flex cath in [...] artery was then closed with an 8 Croatian VIP Angio-Seal device. ??The patient had no complications, neurologic or other, during this procedure and was transferred to the cardiovascular observation unit for further care prior to transfer to the second floor ICU. The post procedure pressures: Ao: 130/60 mm Hg LV: 130/18 mm Hg Complications: ??There were no signs of early complications. Final Impression: Successful SILK TOP HAT BODY MAKER/stenting of high degree asymptomatic stenosis in the left internal carotid artery under the CREST 2 registry. us Dada Stevens MD CV CARDIAC CATH ORDERABLES Ed ited Result - Final * IR ANGIOGRAM CAROTID CERVICAL LEFT (02/08/2019 11:41 AM EDT) Anatomical Region Laterality Modality X-Ray Angiograph y Narrative 02/08/2019 12:57 PM EDT Sofa Back Upholsterer: Dr. William England. Access: Right common femoral [...] record. ?? Utilizing micropuncture technique, a 5 Croatian vascular sheath was placed into the right common femoral artery without difficulty. ??Subsequently, a 5 Croatian Berenstein catheter was advanced into the aortic arch, but secondary to type II/III aortic arch, catheterization of the left common carotid artery cannot be adequately achieved. ??Subsequently, 5 Croatian Webster 2 catheter was advanced into the [...] Angiograph y Narrative 02/08/2019 12:57 PM EDT Sofa Back Upholsterer: Dr. William England. Access: Right common femoral [...] record. ?? Utilizing micropuncture technique, a 5 Croatian vascular sheath was placed into the right common femoral artery without difficulty. ??Subsequently, a 5 Croatian Lattice Powerenstein catheter was advanced into the aortic arch, but secondary to type II/III aortic arch, catheterization of the left common carotid artery cannot be adequately achieved. ??Subsequently, 5 Croatian Webster 2 catheter was advanced into the [...] note for details regarding left carotid intervention. Dada Stevens MD CV CARDIAC CATH ORDERABLES Fi nal Result * (ABNORMAL) POC Activated Clotting Time (02/08/2019 11:26 AM EDT) [facility] Activated Clotting Time 235(H) 82 - 152 Seconds 02/08/2019 2:19 PM EDT [facility] Comment:Serial Number: [id number]: [id number] Blood 02/08/2019 11:2 6 AM EDT 02/08/2019 2:19 PM EDT Dada Stevens MD POINT OF CARE TEST ORDERABLES Final Result Performing Organization Address City/[facility]/ZIP Co de Phone Number [facility]
[address] [place] [address], * (ABNORMAL) POC Activated Clotting Time (02/08/2019 11:07 AM EDT) Activated Clotting Time 263(H) 82 - 152 Seconds 02/08/2019 2:19 PM EDT [facility] Comment:Serial Number: [id number]: [id number] Blood 02/08/2019 11:0 7 AM EDT 02/08/2019 2:19 PM EDT Dada Stevens MD POINT OF CARE TEST ORDERABLES Final Result Performing Organization Address City/[facility] Co de Phone Number [facility]
[address] [place] [address], * ECG 12 Lead (02/08/2019 10:03 AM [...] previous ECGs available Confirmed by Olegario Rangel ([id number]) on 02/10/2019 8:18:58 PM Referred By: ??[facility]' [...] previous ECGs available Confirmed by Olegario Rangel ([id number]) on 02/10/2019 8:18:58 PM Referred By: AYSHA Confirmed By:Olegario Rangel us Mahsa Kauffman PA-C ECG ORDERABLES Cinthia ingram Result ECG * (ABNORMAL) POC CHEM 8 (02/08/2019 9:52 AM EDT) [facility] Glucose 114 70 - 130 mg/dL 02/08/2019 2:26 PM EDT [facility] BUN 18 8 - 26 mg/dL 02/08/2019 2:26 PM EDT [facility] Creatinine 1.00 0.60 - 1.30 mg/dL 02/08/2019 2:26 PM EDT [facility] Sodium 143 138 - 146 mmol/L 02/08/2019 2:26 PM EDT [facility] POC Potassium 3.7 3.5 - 4.9 mmol/L 02/08/2019 2:26 PM EDT [facility] Chloride 99 98 - 109 mmol/L 02/08/2019 2:26 PM EDT [facility] Total CO2 29 24 - 29 mmol/L 02/08/2019 2:26 PM EDT [facility] Hemoglobin 10.2(L) 12.0 - 17.0 g/dL 02/08/2019 2:26 PM EDT [facility] Comment:Serial Number: [id number]: [id number] Hematocrit 30(L) 38 - 51 % 02/08/2019 2:26 PM EDT [facility] Ionized Calcium 1.19(L) 1.20 - 1.32 mmol/L 02/08/2019 2:26 PM EDT [facility] Blood 02/08/2019 9:52 AM EDT 02/08/2019 2:26 PM EDT us Dada Stevens MD POINT OF CARE TEST ORDERABLES Final Result [facility]
[address] [place] [address], * XR Chest PA & Lateral (02/08/2019 [...] - 5.60 % 02/08/2019 1:33 PM EDT [facility] Blood Line / Unknown 02/08/2019 8: 44 AM EDT 02/08/2019 10:21 AM EDT [facility] - 02/08/2019 1:33 PM EDT Hemoglobin A1C Ranges: Increased Risk for Diabetes ??5.7% to 6.4% Diabetes ? >= 6.5% Diabetic Goal ?< 7.0% Mahsa Kauffman PA-C LAB BLOOD ORDERABLES Final Result [facility]
[address] [place] [address], * (ABNORMAL) Comprehensive Metabolic Panel (02/08/2019 8:44 AM EDT) Glucose 116(H) 65 - 99 mg/dL 02/08/2019 10:35 AM EDT [facility] BUN 19 8 - 23 mg/dL 02/08/2019 10:35 AM EDT [facility] Creatinine 0.90 0.57 - 1.00 mg/dL 02/08/2019 10:35 AM EDT [facility] Sodium 143 136 - 145 mmol/L 02/08/2019 10:35 AM EDT [facility] Potassium 3.6 3.5 - 5.2 mmol/L 02/08/2019 10:35 AM [facility] Chloride 101 98 - 107 mmol/L 02/08/2019 10:35 AM T [facility] CO2 29.0 22.0 - 29.0 mmol/L 02/08/2019 10:35 AM [facility] Calcium 9.4 8.6 - 10.5 mg/dL 02/08/2019 10:35 AM T [facility] Total Protein 7.7 6.0 - 8.5 g/dL 02/08/2019 10:35 AM [facility] Albumin 4.30 3.50 - 5.20 g/dL 02/08/2019 10:35 AM T [facility] ALT (SGPT) 31 1 - 33 U/L 02/08/2019 10:35 AM [facility] AST (SGOT) 35(H) 1 - 32 U/L 02/08/2019 10:35 AM T [facility] Alkaline Phosphatase 56 39 - 117 U/L 02/08/2019 10:35 AM [facility] Total Bilirubin 0.5 0.2 - 1.2 mg/dL 02/08/2019 10:35 AM [facility] eGFR Non Amer 61 >60 mL/min/1.7 3 02/08/2019 10:35 AM T [facility] Globulin 3.4 gm/dL 02/08/2019 10:35 AM T [facility] A/G Ratio 1.3 g/dL 02/08/2019 10:35 AM [facility] BUN/Creatinine Ratio 21.1 7.0 - 25.0 02/08/2019 10:35 AM T [facility] Anion Gap 13.0 mmol/L 02/08/2019 10:35 AM [facility] Blood Line / Unknown 02/08/2019 8: 44 AM EDT 02/08/2019 10:13 AM T [facility] - 02/08/2019 10:35 AM EDT GFR Normal >60 Chronic Kidney Disease <60 Kidney Failure <15 Mahsa Kauffman PA-C LAB BLOOD ORDERABLES Final Result [facility]
[address] [place] [address], * CBC (No Diff) (02/08/2019 8:44 AM EDT) WBC 5.07 3.40 - 10.80 10*3/mm3 02/08/2019 10:26 AM EDT [facility] RBC 4.18 3.77 - 5.28 10*6/mm3 02/08/2019 10:26 AM EDT [facility] Hemoglobin 12.7 12.0 - 15.9 g/dL 02/08/2019 10:26 AM EDT [facility] Hematocrit 38.5 34.0 - 46.6 % 02/08/2019 10:26 AM EDT [facility] MCV 92.1 79.0 - 97.0 fL 02/08/2019 10:26 AM EDT [facility] MCH 30.4 26.6 - 33.0 pg 02/08/2019 10:26 AM EDT [facility] MCHC 33.0 31.5 - 35.7 g/dL 02/08/2019 10:26 AM EDT [facility] RDW 13.6 12.3 - 15.4 % 02/08/2019 10:26 AM EDT [facility] RDW-SD 45.5 37.0 - 54.0 fl 02/08/2019 10:26 AM EDT [facility] MPV 10.3 6.0 - 12.0 fL 02/08/2019 10:26 AM EDT [facility] Platelets 179 140 - 450 10*3/mm3 02/08/2019 10:26 AM EDT [facility] Blood Line / Unknown 02/08/2019 8: 44 AM EDT 02/08/2019 10:21 AM EDT Mahsa Kauffman PA-C LAB BLOOD ORDERABLES Final Result [facility]
[address] [id number], * SCANNED - LABS (02/08/2019) [facility] Onbase LAB BLOOD ORDERABLES Final Re sult * SCANNED - CARDIOLOGY (02/08/2019) Anatomical Region Laterality Modality Other [facility] CV CARDIAC SERVICES ORDERABLE S Final Result * SCANNED - TELEMETRY (02/08/2019) Anatomical Region Laterality Modality Other [facility] ECG ORDERABLES Final Result * SCANNED - TELEMETRY (02/08/2019) Anatomical Region Laterality Modality Other [facility] Onbase ECG ORDERABLES Final Result * SCANNED - TELEMETRY (02/08/2019) Anatomical Region Laterality Modality Other [facility] Onbase ECG ORDERABLES Final Result documented in this encounter Visit Diagnoses Diagnosis LICA stenosis s/p stent per Dr. England 02/08/19- Primary Occlusion and stenosis of carotid artery without mention of cerebral infarction Stenosis of left carotid artery Occlusion and stenosis of carotid artery without mention of cerebral infarction Hypertension Unspecified essential hypertension Hyperlipidemia Other and unspecified hyperlipidemia Asymptomatic mild right ICA stenosis GERD Esophageal reflux Former smoker quit in 2009 Personal history of tobacco use, presenting hazards to health Stenosis of left carotid artery Occlusion and [...] Pain Score of 7-10, CPOT 5-8 Given 02/08/2019 10:04 AM EDT 81 mg aspirin EC tablet 81 mg 81 mg, Oral, Daily, First dose on 02/09/19 at 0900, Herbal/drug interaction: Avoid use with [...] PM EDT 10 mg clopidogrel (PLAVIX) tablet 600 mg 600 mg, Oral, Once, On Mon02/08/19 at 0824, For 1 dose Given 02/08/2019 10:03 AM EDT 600 mg clopidogrel (PLAVIX) tablet 75 mg 75 mg, Oral, Daily, First dose on 02/09/19 at 0900 Given 02/09/2019 8:58 AM EDT 75 mg ferrous sulfate tablet 325 mg 325 mg, [...] Given 02/08/2019 8:15 PM EDT 300 mg HYDROcodone-acetaminophen (NORCO) 5-325 MG per tablet 1 [...] = Pain Score of 7-10, CPOT 5-8 ipratropium-albuterol (DUO-NEB) nebulizer solution 3 mL 3 mL, Nebulization, Every 4 Hours PRN, Shortness of Air, Starting on Mon02/08/19 at 1450 niCARdipine (CARDENE-IV) 20 mg/200 mL (0.1 mg/mL) [...] 12:33 PM EDT 5 mg/hr 50 mL/hr pantoprazole (PROTONIX) EC tablet 40 mg 40 mg, Oral, Every Financial Sales Professional, First dose on Mon02/09/19 at 0600, Swallow whole; do not crush, split, or chew. Given 02/09/2019 6:05 AM EDT 40 mg sertraline (ZOLOFT) tablet 100 mg 100 mg, Oral, Nightly, First dose on Mon02/08/19 at 2100 Given 02/08/2019 8:19 PM EDT 100 mg sodium chloride 0.9 % flush 3 mL 3 mL, Intravenous, Every 12 Hours Scheduled, First dose on Mon02/08/19 at 0900 Given 02/08/2019 10:08 AM EDT 3 mL sodium chloride 0.9 % flush 3 mL 3 mL, Intravenous, Every 12 Hours Scheduled, First dose on Mon02/08/19 at 1147 Given 02/09/2019 9:01 AM EDT 3 mL Given 02/08/2019 8:20 PM EDT 3 mL Given 02/08/2019 12:34 PM EDT 3 mL sodium chloride 0.9 % infusion 1-3 mL/kg/hr ? 78.3 kg (78.3-234.9 mL/hr), Intravenous, Continuous, Starting on Mon02/08/19 at 0840, Begin Infusion at 3 mL/kg/hr (Max Rate 330 mL/hr) For 1 Hour Prior to Receiving IV Contrast, Then Decrease to 1 mL/kg/hr (Max Rate 110 mL/hr). Stop Infusion 6 Hours After Contrast Infused or Total of 1 Liter of NS Delivered New Bag 02/08/2019 10:07 AM EDT 3 mL/kg/hr 234.9 mL/hr traZODone (DESYREL) tablet 50 mg 50 mg, [...] 81 mg, Oral, Daily, First dose on 02/09/19 at 0900, Herbal/drug interaction: Avoid use with [...] Daily, First dose on 02/09/19 at 0900 0858 (Given - Provid er: [...] tablet 40 mg 40 mg, Oral, Every Financial Sales Professional, First dose on 02/09/19 at 0600, Swallow [...] at 1147 1234 (Given - Provider: Breana Hill, CAROLINE)2019 (Given - Provider: Maria Del Rosario Elaine [...] not present on arrival to unit. Per lift slab operator 1 L NS Bolus already completed.) PRN [...] 0900 documented in this encounter Care Teams Food And Drug Research Scientist Relationship Specialty Start Date End Date Nabil Gilbert MD [address] [facility] [address] [facility] [address] [place] [address] PCP - General 12/22/15 documented as of this encounter
--- OUTSIDE RECORDS SUMMARY | 2024-08-28 16:01 | XMS_ITS | Encounter Summary ---
Author Organization [place] [address] Care Team Providers Care Sequins Slinger Name Role Phone Unavailable Primary Care Provider Unavailabl e Encounter Details Date Type Department Care Team (Latest Contact Info) Description 09/14/2012 3:43 PM EST - 09/14/2012 11:59 PM EST [facility] [place], [place] [id number] Discharge Disposition: Home or Self Care Social History Tobacco Use Types Packs/Day Years Used Date Smoking Tobacco: Never Assessed Comments Unknown Sex and Gender Information Value Date Recorded Sex Assigned at Not on file Legal Sex Female 4:50 AM EDT Gender Identity Not on file Sexual Orientation Not on file documented as of this encounter Discharge Disposition Disposition Code Departure Means Destination Home or Self Care documented in this encounter Miscellaneous Notes * Miscellaneous - Unknown, Unknown - 09/14/2012 4:13 PM EST documented in this encounter Plan of Treatment Not on file documented as of this encounter Procedures Procedure Name Priority Date/Time Associated Diagnosis Comments PATHOLOGY TISSUE REPORT Routine 09/14/2012 10:02 PM EST documented in this encounter Results * PATHOLOGY TISSUE REPORT (09/14/2012 10:02 PM EST) Surgical Pathology Report ? PATIENT NAME:BERNICE NAVARRETE ?Surgical Pathology Report ? Accession Number ?Collected Date/Time ? Received Date/Time ? [id number] ? 09/14/12 22:02 EST ?09/14/12 22:02 EST ? Diagnosis ? 1) Duodenum, biopsy: ? Unremarkable duodenal mucosa, no histopathologic abnormalities. ? 2) Stomach, biopsy: ? - Reactive gastropathy (chemical gastritis), body and antral-type mucosa. ? - Negative for H. pylori. ? 3) Esophagus (middle and lower third), biopsy: ? Unremarkable squamous mucosa, no histopathologic abnormalities. ? 4) Random colon and rectum biopsies: ? Unremarkable colorectal mucosa, no histopathologic abnormalities. ? 5) Transverse colon (60 cm) and descending colon (45 cm) polyps, ? polypectomy: ? - Sessile serrated adenoma (2 fragments). ? - Tubular adenoma (1 fragment). ? KEI BRYANT MD ? (Electronically signed by) ? Verified: 09/19/2012 ? TSG Sign Out Location ? Comment ? CPT CODE ? 24392 x 5 ? Clinical Information ? Anemia; altered bowel habits; diarrhea; abdominal pain-epigastric and left ? upper quadrant. Normal mucosa in the GE junction and whole esophagus; ? nonerosive gastritis in the antrum and stomach body; normal mucosa in the ? duodenal bulb and second part of the duodenum; polyp at 60 cm in transverse ? colon; polyp at 45 cm in the descending colon; sigmoid diverticulosis; ? hypertrophy of anal papillae. ? Gross Description ? Part 1) Received in formalin labeled with the patient s name and second ? part of the duodenum are five fragments of black tissue ranging from 0.1 to ? 0.3 cm in greatest dimension. ??Entirely submitted in one cassette./[place] ? Part 2) Received in formalin labeled with the patient s name and stomach ? antrum, body and fundus rule out H. pylori are six fragments of black tissue ? ranging from 0.1 to 0.3 cm in greatest dimension. ??Entirely submitted in ? one cassette./[place] ? Part 3) Received in formalin labeled with the patient s name and GE ? junction, lower and middle third of the esophagus rule out Curry's are ? six fragments of black tissue ranging from 0.2 to 0.4 cm in greatest ? dimension. ??Entirely submitted in one cassette./[place] ? Part 4) Received in formalin labeled with the patient s name and ascending, transverse, descending and sigmoid colon are approximately ? eight fragments of black tissue ranging from 0.1 to 0.3 cm in greatest ? dimension. ??Entirely submitted in one cassette./[place] ? Part 5) Received in formalin labeled with the patient s name and transverse and descending colon, from 60 and 45 cm are three fragments ? of black tissue ranging from 0.4 to 0.6 cm in greatest dimension. ??Entirely ? submitted in one cassette./[place] ? DJE/MT ? Microscopic Description ? Microscopic examination is performed. [facility] 09/14/2012 10:0 2 PM EST us Jovanny Hennessy MD PATHOLOGY ORDERABLES Final Resul t [facility] [address] [place] [address] documented in this encounter Visit Diagnoses Not on filedocumented in this encounter
--- OUTSIDE RECORDS SUMMARY | 2024-08-28 16:01 | XMS_ITS | Encounter Summary ---
[facility] Organization [facility] Address [address] [place] [address] Care Team Providers Care Meteorological Equipment Repairer Name Role Phone Nabil Gilbert MD Primary Care Provider [phone] Reason for Visit * Reason Comments stenosis of left carotid artery Encounter Details Date Type Department Care Team (Late st Contact Info) Description 05/09/2019 1:15 PM EDT Office Visit [facility] [address] [facility] [address] [place] [address] Dada Stevens MD [facility] [place] [address] Essential hypertension (Primary Dx); Mixed hyperlipidemia; LICA stenosis s/p stent per Dr. England 02/08/19 Social History Tobacco Use Types Packs/Day Years [...] Sign Reading Time Taken Comments Blood Pressure 91/45 05/09/2019 1:15 PM EDT Pulse 65 05/09/2019 1:15 PM EDT Temperature - - Respiratory Rate - - Oxygen Saturation - - Inhaled Oxygen Concentration - - Weight 73.9 kg (163 lb) 05/09/2019 1:13 PM EDT Height 160 cm (5' 3 ) 05/09/2019 1:13 PM EDT Body Mass Index 28.87 05/09/2019 1:13 PM EDT documented in this encounter Progress Notes * Dada Stevens MD - 05/09/2019 1:15 PM EDT OFFICE FOLLOW UP Date of Encounter:05/09/2019 Name: China Verde : 1945 Address: [address] [place], [place] [id number] PCP: Nabil Gilbert MD [address] [facility] [address] [facility] [address] [facility] [address] China Verde is a 73 y.o. female. Chief Complaint: Follow up of Carotid stenosis Problem List: 1. ??Carotid artery disease: a. Cerebral angiogram, [facility], ??11/21/2014: ??Bilateral patent vertebral arteries with less than 50% [place] stenosis and greater than 70% LICA stenosis. b. Consented for CREST-2 trial, 12/26/2014 for LICA stenosis 1. CELY arm, medical management only 2. Completed CREST 2 protocol 01/2019 c. Carotid duplex 01/15/2019: 50-69% [place] stenosis, >70% LICA stenosis, bilateral vertebral flow is antegrade; since 12/19/2017 there has been an increase in bilateral carotid artery velocities d. LICA stent, 02/08/19: under CREST2 registry. 2. Hypertension. 3. Hyperlipidemia. 4. History of anemia. 5. GERD. 6. History of tobacco use, inactive 2007 Allergies: Allergies Allergen Reactions ??? Keflex [Cephalexin] Rash ??? Vesicare [Solifenacin] Rash Current Medications: ??? aspirin 81 MG tablet, Take 81 mg by mouth Daily ??? atorvastatin (LIPITOR) 10 MG tablet, Take 10 mg by mouth daily. ??? Cholecalciferol (VITAMIN D3) 5000 units capsule capsule, Take 5,000 Units by mouth Daily ??? clopidogrel (PLAVIX) 75 MG tablet, Take 1 tablet by mouth Daily. ??? ferrous sulfate 325 (65 FE) MG tablet, Take 325 mg by mouth daily. ??? gabapentin (NEURONTIN) 300 MG capsule, Take 300 mg by mouth 2 (two) times a day. ??? HYDROcodone-acetaminophen (NORCO) 5-325 MG per tablet, Take 1 tablet by mouth 3 (three) times aday ??? losartan-hydrochlorothiazide (HYZAAR) 100-25 MG per tablet, Take 1 tablet by mouth daily. ??? omeprazole (PriLOSEC) 40 MG capsule, Take 40 mg by mouth daily. ??? sertraline (ZOLOFT) 100 MG tablet, Take 100 mg by mouth daily. ??? traZODone (DESYREL) 50 MG tablet, Take 50 mg by mouth every night. ??? vitamin B-12 (CYANOCOBALAMIN) 1000 MCG tablet, Take 1,000 mcg by mouth 2 (Two) Times a Day ??? vitamin C (ASCORBIC ACID) 500 MG tablet, Take 1,500 mg by mouth Daily. History of Present Illness: Ms. Verde returns for follow up. She is doing great . She has had no TIA or stroke symptoms. She is active around her home and yard. She takes medications as listed above. The following portions of the patient's history were reviewed and updated as appropriate: allergies, current medications and problem list. ROS: Pertinent positives as listed in the HPI. All other systems reviewed and negative. Objective: Vitals: 05/09/19 1313 05/09/19 1314 05/09/19 1315 BP: (!) 86/54 110/51 91/45 BP Location: Left arm Right arm Right arm Patient Position: Sitting Sitting Standing Pulse: 64 63 65 Weight: 73.9 kg (163 lb) Height: 160 cm (63 ) Physical Exam: GENERAL: Alert, cooperative, in no acute distress. HEENT: Normocephalic, no adenopathy, no jugular venous distention HEART: No discrete PMI is noted. Regular rhythm, normal rate, and no murmurs, gallops, or rubs. LUNGS: Clear to auscultation bilaterally. No wheezing, rales or ronchi. ABDOMEN: Soft, bowel sounds present, non-tender NEUROLOGIC: No focal abnormalities involving strength or sensation are noted. EXTREMITIES: No clubbing, cyanosis, or edema noted. Diagnostic Data: No new labs available to review. Procedures Assessment and Plan: 1. Carotid stenosis and CREST 2 GRADUATE: Asymptomatic following LICA stent placed for increasing velocities.. Continue aspirin and statin. We will discontinue Plavix today. We will repeat a carotid duplex in one year. 2. HTN: blood pressure well controlled. Hydration was encouraged during the summer months. 3. HLD: LDL 63, at target in 01/2019. Continue atorvastatin. I will see China Verde back in one year or sooner on an as needed basis. documented in this encounter Plan of Treatment Not on file documented as of this encounter Visit Diagnoses Diagnosis Essential hypertension- Primary Unspecified essential hypertension Mixed hyperlipidemia LICA stenosis s/p stent per Given 02/08/19 Occlusion and stenosis of carotid artery without mention of cerebral infarction documented in this encounter Care Teams Meteorological Equipment Repairer Relationship Specialty Start Date End Date Nabil Gilbert MD [address] [place] [facility] [address] [facility] [address] [place] [address] PCP - General 12/22/15 documented as of this encounter
--- OUTSIDE RECORDS SUMMARY | 2024-08-28 16:01 | XMS_ITS | Encounter Summary ---
Author Organization [place] [address] Care Team Providers Care Section Forest Fire Warden Name Role Phone Unavailable Primary Care Provider Unavailabl e Encounter Details Date Type Department Care Team (Latest Contact Info) Description 07/30/2012 8:11 AM EDT - 07/30/2012 11:59 PM EDT Hospital Encounter EDG [facility] [address] [place] [address] Anemia, unspecified Discharge Disposition: Home or Self Care Social [...] Notes * Miscellaneous - Unknown, Unknown - 07/30/2012 3:57 PM EDT * Miscellaneous - Unknown, Unknown - 07/30/2012 3:57 PM EDT * Miscellaneous - Unknown, Unknown - 07/30/2012 3:57 PM EDT documented in this encounter Plan of Treatment Not on file documented as of this encounter Procedures Procedure Name Priority Date/Time Associated Diagnosis Comments VITAMIN B12/ FOLIC ACID Routine 07/30/2012 8:26 AM EDT Anemia, unspecified IRON LEVEL AND TIBC Routine 07/30/2012 8 :26 AM EDT Anemia, unspecified HEPATIC FUNCTION PANEL Routine 07/30/2012 8:26 AM EDT Anemia, unspecified BASIC METABOLIC PANEL Routine 07/30/2012 8:26 AM EDT Anemia, unspecified SMEAR REVIEW Routine 07/30/2012 8:25 AM EDT DIFFERENTIAL Routine 07/30/2012 8:25 AM EDT CBC WITH DIFF Routine 07/30/2012 8:25 AM EDT Anemia, unspecified documented in this encounter Results * (ABNORMAL) HEPATIC FUNCTION PANEL (07/30/2012 8:26 AM EDT) Total Protein 7.7 6.0 - 8.2 gm/dL [facility] Albumin 4.4 3.4 - 4.8 gm/dL [facility] Bili Direct 0.3 0.0 - 0.4 mg/dL [facility] Bili Total 0.5 0.1 - 1.3 mg/dL [facility] AST 52(H) 14 - 36 IU/L [facility] ALT 41 6 - 60 IU/L [facility] Alk Phos 70 41 - 119 IU/L [facility] Blood specimen (specimen) UPPER LIMB STRUCTURE / Unknown 07/30/2012 8:26 AM EDT 07/30/2012 12:25 PM EDT us Jovanny Hennessy MD CHEMISTRY ORDERABLES Final Resul t [facility] 1 [place] [address] * (ABNORMAL) BASIC METABOLIC PANEL (07/30/2012 8:26 AM EDT) Sodium 140 135 - 143 mmol/L [facility] Potassium 4.7 3.5 - 5.0 mmol/L [facility] Chloride 99 98 - 108 mmol/L [facility] Total CO2 29 22 - 31 mmol/L [facility] Anion Gap 12 7 - 16 mmol/L [facility] Calcium 9.9 8.6 - 10.3 mg/dL [facility] Glucose Lvl 107(H) 70 - 100 mg/dL [facility] BUN 16 7 - 19 mg/dL [facility] Creatinine 0.9 0.6 - 1.0 mg/dL [facility] GFR Afr Am >60 [facility] Comment: GFR is estimated using creatinine, age, gender, and race. ??GFR has been validated for patients between 18 and 70 years of age. GFR has not been validated for women, patients with serious comorbid conditions, or persons with extremes of body size, muscle mass, or nutritional status. ??For additional information: ??www.kidney.org. Chronic kidney disease stage ? GFR (ml/min/1.73 square meters) ? Stage 3 ? 30 - 59 ? Stage 4 ? 15 - 29 ? Stage 5 ? 14 or less GFR Non Afr Am >60 [facility] Blood specimen (specimen) UPPER LIMB STRUCTURE / Unknown 07/30/2012 8:26 AM EDT 07/30/2012 12:25 PM EDT Jovanny Hennessy MD CHEMISTRY ORDERABLES Final Resul t Performing Organization Address [facility] de Phone Number [facility] [address] [place] [address] * VITAMIN B12/ FOLIC ACID (07/30/2012 8:26 AM EDT) Vitamin B12 902 239 - 931 pg/mL [facility] Folic Acid Lvl 19.00 3.00 - 20.00 ng/mL [facility] Blood specimen (specimen) UPPER LIMB STRUCTURE / Unknown 07/30/2012 8:26 AM EDT 07/30/2012 11:59 AM EDT us Jovanny Hennessy MD CHEMISTRY ORDERABLES Final Resul t Performing Organization Address [facility] de Phone Number [facility] [address] [place] [address] * (ABNORMAL) IRON LEVEL AND TIBC (07/30/2012 8:26 AM EDT) Iron 194(H) 19 - 153 mcg/dL [facility] TIBC 373 260 - 495 mcg/dL [facility] %Saturation 52(H) 20 - 50 % [facility] Blood specimen (specimen) UPPER LIMB STRUCTURE / Unknown 07/30/2012 8:26 AM EDT 07/30/2012 11:59 AM EDT us Jovanny Hennessy MD CHEMISTRY ORDERABLES Edited Performing Organization Address [facility] de Phone Number [facility] [address] [place] [address] * SMEAR REVIEW (07/30/2012 8:25 AM EDT) RBC Morph Microcytic [facility] Aniso Marked [facility] Poik Slight [facility] Polychrom Slight [facility] Ovalocyte Occasional [facility] Acanthocyte Occasional [facility] Teardrop Cell Occasional [facility] Schistocyte <1 /HPF [facility] Stomatocyte Occasional [facility] Blood specimen (specimen) 07/30/2012 8:25 AM EDT 07/30/2012 11:56 AM EDT Jovanny Hennessy MD HEMATOLOGY ORDERABLES Final Resu lt Performing Organization Address City/[facility] Co de Phone Number [facility] [address] [place] [address] * DIFFERENTIAL (07/30/2012 8:25 AM EDT) Neut Percent 55.3 40.0 - 70.0 % [facility] Lymph Percent 32.5 17.0 - 46.0 % [facility] [place] Percent 10.2 4.0 - 12.0 % [facility] Eos Percent 1.2 0.0 - 6.0 % [facility] Baso Percent 0.8 0.0 - 2.0 % [facility] Neut# 3.2 1.8 - 7.7 x10(3)/mcL [facility] Lymph# 1.9 1.0 - 4.8 x10(3)/mcL [facility] [place]# 0.6 0.0 - 1.3 x10(3)/mcL [facility] Eos# 0.1 0.1 - 0.5 x10(3)/mcL [facility] Baso# 0.0 0.0 - 0.2 x10(3)/mcL [facility] Blood specimen (specimen) 07/30/2012 8:25 AM EDT 07/30/2012 11:56 AM EDT us Jovanny Hennessy MD HEMATOLOGY ORDERABLES Final Resu lt Performing Organization Address [facility] Co de Phone Number [facility] [address] [place] [address] * (ABNORMAL) CBC WITH AUTO DIFF (07/30/2012 8:25 AM EDT) WBC 5.8 4.0 - 11.0 x10(3)/mcL [facility] RBC 4.63 4.00 - 5.10 x10(6)/mcL [facility] Hgb 10.8(L) 12.0 - 15.7 gm/dL [facility] Hct 33.0(L) 36.0 - 45.9 % [facility] MCV 71.3(L) 80.0 - 95.8 fL [facility] MCH 23.2(L) 27.0 - 33.2 pg [facility] MCHC 32.5(L) 33.0 - 36.0 gm/dL [facility] RDW 33.0(H) 11.5 - 14.5 % [facility] Platelet 368 150 - 400 x10(3)/mcL [facility] MPV 8.6 7.0 - 12.0 fL [facility] Blood specimen (specimen) UPPER LIMB STRUCTURE / Unknown 07/30/2012 8:25 AM EDT 07/30/2012 11:56 AM EDT us Jovanny Hennessy MD HEMATOLOGY ORDERABLES Final Resu lt [facility] [address] [place] [address] documented in this encounter Visit Diagnoses Diagnosis Anemia, unspecified documented in this encounter
--- OUTSIDE RECORDS SUMMARY | 2024-08-28 16:01 | XMS_ITS | Encounter Summary ---
Author Organization [facility] Address [address] [place] [address] Care Team Providers Care Machine Ii Coremaker Name Role Phone Nabil Gilbert MD Primary Care Provider [phone] [phone] Reason for Visit * Reason Comments Carotid Artery Disease Encounter Details Date Type Department Care Team (Late st Contact Info) Description 01/15/2019 2:00 PM EDT Office Visit [facility] [address] [facility] [address] [place] [address] Dada Stevens MD [facility] [place] [address] Stenosis of left carotid artery (Primary Dx); Mixed hyperlipidemia; Essential hypertension Social History Tobacco Use Types Packs/Day Years Used Date Smoking Tobacco: Former Cigarettes 2 30 1 2009 Alcohol Use Standard Drinks/Week Comments No 0 [...] Sign Reading Time Taken Comments Blood Pressure 109/63 01/15/2019 1:22 PM EDT Pulse 62 01/15/2019 1:22 PM EDT Temperature - - Respiratory Rate - - Oxygen Saturation - - Inhaled Oxygen Concentration - - Weight 78 kg (172 lb) 01/15/2019 1:16 PM EDT Height - - Body Mass Index 30.47 06/15/2016 3:24 PM EDT documented in this encounter Progress Notes * Polly Fernando RN - 01/15/2019 2:00 PM EDT 01/15/19 China Verde 1945 CREST-2 48 month FOLLOWUP Left ICA STENOSIS ARM OF STUDY: CELY arm, medical management only Medications: ??? aspirin 81 MG by mouth Daily. ??? atorvastatin 10 mg by mouth daily. ??? Cholecalciferol (VITAMIN D3) 5000 units by mouth Daily. ??? ferrous sulfate 325 (65 FE) MG tablet, Take 325 mg by mouth daily ??? furosemide 20 mg by mouth Daily. 20mg-40mg ??? gabapentin 300 mg by mouth 2 (two) times a day ??? HYDROcodone-acetaminophen (NORCO) 5-325 MG by mouth 3 (three) times a day ??? losartan-hydrochlorothiazide (HYZAAR) 100-25 MG by mouth daily ??? omeprazole 40 mg by mouth daily ??? sertraline 100 mg by mouth daily ??? traZODone 50 mg by mouth every night ??? vitamin B-12 1,000 mcg by mouth 2 (Two) Times a Day AVERAGE BP: 117/62, HR 62 Vitals: 01/15/19 1316 01/15/19 1319 01/15/19 1322 BP: 123/60 121/60 109/63 BP Location: Right arm Patient Position: Sitting Pulse: 62 62 Weight: 78 kg (172 lb) RECENT LABS: Lab Results Component Value Date CHOL 156 01/15/2019 TRIG 330 (H) 01/15/2019 HDL 38 (L) 01/15/2019 LDL 63 01/15/2019 Lab Results Component Value Date CREATININE 1.20 01/15/2019 Lab Results Component Value Date K 4.2 01/15/2019 NA 142 01/15/2019 CAROTID DUPLEX 01/15/19: ?? There is 50%-69% right internal carotid artery stenosis. ?? There is >70% left internal carotid artery stenosis. ?? Bilateral vertebral flow is antegrade. ?? Since 12/19/2017, there has been an increase in bilateral carotid artery velocities. ORDERS AND MEDICATION CHANGES: She has completed the CREST2 research protocol. Dr. Stevens will have Dr. Beebe review carotid from [address] Stevens would like to follow up with her in 6 months with another carotid duplex. If she should develop any symptoms of TIA or stroke she knows to contact us. *THERE IS NO CHARGE FOR THIS VISIT* Nabil Gilbert MD documented in this encounter Plan of Treatment Not on file documented as of this encounter Visit Diagnoses Diagnosis Stenosis of left carotid artery- Primary Occlusion and stenosis of carotid artery without mention of cerebral infarction Mixed hyperlipidemia Essential hypertension Unspecified essential hypertension documented in this encounter Care Teams Machine Ii Coremaker Relationship Specialty Start Date End Date Nabil Gilbert MD [address] [facility] [address] [facility] 2 [place] [address] PCP - General 12/22/15 documented as of this encounter
--- OUTSIDE RECORDS SUMMARY | 2024-08-28 16:01 | XMS_ITS | Encounter Summary ---
Author Organization [facility] Address [address] [place] [address] Care Team Providers Care Logistics Tech Name Role Phone Nabil Gilbert MD Primary Care Provider [phone] Reason for Referral * Diagnostic Imaging (Routine) - Closed Specialty Diagnoses / Procedures Referred By Contac t Referred To Contact Diagnoses Bilateral carotid artery stenosis Essential hypertension Dyslipidemia, goal LDL below 70 Procedures Duplex Carotid Ultrasound Dada Zhao MD Phone: tel: fax: [place] [id number] Phone: tel: Referral ID Status Reason Start Date Expiration Date Visits Re quested Visits Authorized [id number] Closed 06/22/2018 06/22/2019 1 1 Reason for Visit * Diagnostic Imaging (Routine) - Closed Specialty Diagnoses / Procedures Referred By Contac t Referred To Contact Diagnoses Bilateral carotid artery stenosis Essential hypertension Dyslipidemia, goal LDL below 70 Procedures Duplex Carotid Ultrasound Dada Zhao MD Phone: tel: fax: [place] [id number] Phone: tel: Referral ID Status Reason Start Date Expiration Date Visits Re quested Visits Authorized [id number] Closed 06/22/2018 06/22/2019 1 1 Encounter Details Date Type Department Care Team (Late st Contact Info) Description 01/15/2019 12:30 PM EDT - 01/15/2019 11:59 PM EDT Hospital Encounter [facility] [address] [place] [address] Dada Stevens MD [address] [place] [address] Bilateral carotid artery stenosis; Essential hypertension; Dyslipidemia, goal LDL below 70 Discharge Disposition: Home or Self Care Social History Tobacco Use Types Packs/Day Years Used Date Smoking Tobacco: Former Cigarettes 2 30 2009 Alcohol Use Standard Drinks/Week Comments No [...] by mouth 2 (Two) Times a Day. furosemide (LASIX) 20 MG tablet Take 1 tablet by mouth daily. 90 tablet 3 07/08/2016 02/09/2019 documented as of this encounter Plan of Treatment Not on file documented as of this encounter Procedures Procedure Name Priority Date/Time Associated Diagnosis Comments DUPLEX CAROTID BILATERAL CAR Routine 01/15/2019 1:03 PM EDT Bilateral carotid artery stenosis Essential hypertension Dyslipidemia, goal LDL below 70 documented in this encounter Results * Duplex Carotid Ultrasound CAR (01/15/2019 1:03 PM EDT) Prox CCA PSV 95.2 cm/sec [facility] Prox CCA PSV 123.1 cm/sec [facility] Prox CCA EDV 19.2 cm/sec [facility] Prox CCA EDV 24.4 cm/sec [facility] left Mid CCA PSV 87.3 cm/sec [facility] Right Mid CCA PSV 70.5 cm/sec [facility] left Mid CCA EDV 20.1 cm/sec [facility] right Mid CCA EDV 20.3 cm/sec [facility] Dist CCA PSV 69.8 cm/sec [facility] Dist CCA PSV 88.7 cm/sec [facility] Dist CCA EDV 18.3 cm/sec [facility] Dist CCA EDV 20.3 cm/sec [facility] CCA ratio dayo 69.0 cm/sec [facility] CCA ratio dayo 88.0 cm/sec [facility] Prox ECA PSV 99.3 cm/sec [facility] Prox ECA PSV 88.0 cm/sec [facility] Prox ICA PSV 515.5 cm/sec [facility] Prox ICA PSV 102.0 cm/sec [facility] Prox ICA EDV 176.4 cm/sec [facility] Prox ICA EDV 30.7 cm/sec [facility] Mid ICA PSV 232.9 cm/sec [facility] Mid ICA PSV 113.5 cm/sec [facility] Mid ICA EDV 68.8 cm/sec [facility] Mid ICA EDV 40.2 cm/sec [facility] Dist ICA PSV 157.2 cm/sec [facility] Dist ICA PSV 190.8 cm/sec [facility] Dist ICA EDV 46.3 cm/sec [facility] Dist ICA EDV 69.6 cm/sec [facility] ICA ratio dayo 513.0 cm/sec [facility] ICA ratio dayo 113.0 cm/sec [facility] Vertebral A PSV 99.8 cm/sec [facility] Vertebral A PSV 67.9 cm/sec [facility] ICA/CCA ratio 7.4 [facility] ICA/CCA ratio 1.3 [facility] Prox SCLA PSV 158.6 cm/sec [facility] Prox SCLA PSV 184.8 cm/sec [facility] Left arm BP 112/55 mmHg [facility] Right arm BP 113/57 mmHg [facility] Anatomical Region Laterality Modality Ultrasound 01/15/2019 12:4 0 PM EDT Narrative 01/15/2019 1:43 PM EDT ?? There is 50%-69% right internal carotid artery stenosis. ?? There is >70% left internal carotid artery stenosis. ?? Bilateral vertebral flow is antegrade. ?? Since 12/19/2017, there has been an increase in bilateral carotid artery velocities. Study Findings ? ? Right CCA Prox: No plaque visualized. ? ? Right CCA Dist: Irregular calcified [...] calcified heterogeneous plaque present. ? ? Left CCA Dist: Irregular calcified heterogeneous plaque present. ? ? Left ICA Prox: Irregular homogeneous plaque present. Tortuous vessel. ? ? Left ICA Mid: Irregular homogeneous plaque present. Tortuous vessel. ? ? Left ICA Dist: Tortuous vessel. ? ? Left ECA: Irregular calcific heterogeneous plaque present. ? ? Left Vertebral: Antegrade flow noted. us Dada Stevens MD CV VASCULAR ORDERABLES Final Result documented in this encounter Visit Diagnoses Diagnosis Bilateral carotid artery stenosis Occlusion and stenosis of carotid artery without mention of cerebral infarction Essential hypertension Unspecified essential hypertension Dyslipidemia, goal LDL below 70 documented in this encounter Care Teams Logistics Tech Relationship Specialty Start Date End Date Nabil Gilbert MD [address] [facility] [address] [facility] [address] [place] [address] PCP - General 12/22/15 documented as of this encounter
--- OUTSIDE RECORDS SUMMARY | 2024-08-28 16:01 | XMS_ITS | Encounter Summary ---
Author Organization [facility] Address [address] [place] [address] Care Team Providers Care Elementary Education Teacher Name Role Phone Nabil Gilbert MD Primary Care Provider [phone] Encounter Details Date Type Department Care Team (Late st Contact Info) Description 02/07/2019 Prep for Surgery [facility] ONLY [address] [place] [address] Mahsa Kauffman PAMary LouC [address] [facility] [address] [place] [address] Social History Tobacco Use Types Packs/Day Years [...] Diagnoses Not on filedocumented in this encounter Care Teams Elementary Education Teacher Relationship Specialty Start Date End Date Nabil Gilbert MD [address] [facility] [address] [place] [address] PCP - General 12/22/15 documented as of this encounter
--- OUTSIDE RECORDS SUMMARY | 2024-08-28 16:01 | XMS_ITS | Encounter Summary ---
Author Organization [place] [address] Care Team Providers Care Moss Bleacher Name Role Phone Riley Ogden MD Unavailable [phone] Ramonita Anguiano MD Unavailable [phone] Nabil Gilbert MD Primary Care Provider [phone] Encounter Details Date Type Department Care Team (Latest Contact Info) Description 01/08/2018 8:15 AM EDT - 01/08/2018 8:29 AM EDT Hospital Encounter [facility] EKG [address] [facility] [place] [address] DEL III (cervical intraepithelial neoplasia [...] documented as of this encounter Care Teams Moss Bleacher Relationship Specialty Start Date End Date Nabil Gilbert MD [address] [place] [address] [address] [place] [address] PCP - General Family Medicine 12/29/17 Riley Ogden MD [address] [place] [phone] Consulting Physician Obstetrics & Gynecology-Gynecologic Oncology 12/22/17 Ramonita Anguiano MD [address] [place] [phone] Referring Physician Obstetrics & Gynecology 12/21/17 documented as of this encounter
--- OUTSIDE RECORDS SUMMARY | 2024-08-28 16:01 | XMS_ITS | Encounter Summary ---
Author Organization [place] [address] Care Team Providers Care Leather Dresser Name Role Phone Unavailable Primary Care Provider Unavailabl e Reason for Referral * Consultation (Routine) - Closed Specialty Diagnoses / Procedures Referred By Juan malone Referred To Contact Oncology Diagnoses DEL III (cervical intraepithelial neoplasia grade III) with severe dysplasia Postmenopausal bleeding Ramonita Anguiano MD Phone: tel: fax: Ernie Escalera MD [address] [place] [phone] Phone: tel: fax: Referral ID Status Reason Start Date Expiration Date V isits Requested Visits Authorized [id number] Closed Specialty Services Required 12/15/2017 12/15/2018 1 99 Question Answer Specialty Request Art Editor-Onc Comments Cervix very flush with vaginal mucosa, unable to perform EMB due to stenosis. Given difficulty and likelihood of needing CKC referral made. Reason for Visit * Reason Onset Date Comments Results 12/14/2017 Encounter Details Date Type Department Care Team (Late st Contact Info) Description 12/14/2017 Telephone [facility] [address] [place] [address] Ramonita Anguiano MD [address] [facility] [address] [place], [place] [address] Results Social History Tobacco Use Types Packs/Day Years [...] encounter Miscellaneous Notes * Telephone Encounter - Ramonita Anguiano MD - 12/15/2017 4:34 PM EST Spoke with Katlyn about results. DEL-3 noted on ECC. Given how difficult the exam was and postmenopausal state I am referring to GynOnc for likely CKC and given I was unable to perform EMB in office for postmenopausal bleeding she would likely need that at time of CKC. She voiced understanding. I placed referral and told Katlyn if they do not hear from gynOnc by call Central Scheduling. * Telephone Encounter - Breana Reyna RMA - 12/15/2017 2:22 PM EST Spoke to Katlyn pt's EC. She had questions. Please call when you can she will be available until 5 today. [phone] They're aware that you're sales contract administrator today. * Telephone Encounter - Ramonita Anguiano MD - 12/15/2017 2:00 PM EST Totally fine - she will need COMPOSITION SIDING WORKER ONC referral once they are aware though because her cervix was toodifficult to fully visualize and it was very atrophic and flush with vaginal mucosa making an excisional procedure for me difficult. * Telephone Encounter - Breana Reyna RMA - 12/15/2017 10:26 AM EST Referring PCP called today request report. Report faxed. * Telephone Encounter - Ramonita Anguiano MD - 12/15/2017 10:03 AM EST Have tried calling twice and number is saying cannot be completed as dialed * Telephone Encounter - Liseth Loyd CCMA - 12/14/2017 3:12 PM EST Patient's daughter is calling for bx results. Please advise. She knows that you are off the rest ofthe day and is sales contract administrator tomorrow. Patient's daughter is wondering if she can get a phone call tomorrow. documented in this encounter Plan of Treatment Scheduled Referrals Name Type Priority Associated Diagnoses Orde r Schedule AMB REFERRAL TO ONCOLOGY Outpatient Referral Routine DEL III (cervical intraepithelial neoplasia grade III) with severe dysplasia Postmenopausal bleeding Ordered: 12/15/2017 documented as of this encounter Visit Diagnoses Diagnosis DEL III (cervical intraepithelial neoplasia grade III) with severe dysplasia- Primary Carcinoma in situ of cervix uteri Postmenopausal bleeding documented in this encounter Additional Health Concerns Assessment Noted Time A fall risk assessment has been complete d for the patient 12/11/2017 7:56 AM EST documented as of this encounter
--- OUTSIDE RECORDS SUMMARY | 2024-08-28 16:01 | XMS_ITS | Encounter Summary ---
Author Organization [place] [address] Care Team Providers Care Factory Maintenance Manager Name Role Phone Riley Ogden MD Unavailable [phone] Ramonita Anguiano MD Unavailable [phone] Reason for Referral * (Routine) - Closed Specialty Diagnoses / Procedures Referred By Contac t Referred To Contact Diagnoses DEL III (cervical intraepithelial neoplasia grade III) with severe dysplasia Postmenopausal bleeding Procedures AMB ONC SURGERY REQUEST COMMUNICATION ORDER VAGINA Riley Ogden MD [address] [place] [phone] Phone: tel: fax: Referral ID Status Reason Start Date Expiration Date Visits Re quested Visits Authorized [id number] Closed 12/22/2017 12/22/2018 1 1 Reason for Visit * Reason Comments Consult * Consultation (Routine) - Closed Specialty Diagnoses / Procedures Referred By Contac t Referred To Contact Oncology Diagnoses DEL III (cervical intraepithelial neoplasia grade III) with severe dysplasia Postmenopausal bleeding Ramonita Anguiano MD [address] [place] [phone] Phone: tel: fax: Ernie Escalera MD [address] [place] [address] [place] [address] Phone: tel: fax: Referral ID Status Reason Start Date Expiration Date V isits Requested Visits Authorized [id number] Closed Specialty Services Required 12/15/2017 12/15/2018 1 99 Encounter Details Date Type Department Care Team (Latest Contact Info) Description 12/22/2017 10:01 AM EST - 12/22/2017 11:59 PM EST Hospital Encounter [facility] [address] [facility] [place] [address] Riley Ogden MD [address] [facility] [place] [address] DEL III (cervical intraepithelial neoplasia grade III) with severe dysplasia; Postmenopausal bleeding; PMB (postmenopausal bleeding) Discharge Disposition: Home or [...] Sign Reading Time Taken Comments Blood Pressure 126/66 12/22/2017 10:13 AM EST Pulse 75 12/22/2017 10:13 AM EST Temperature 36.6 ??C (97.9 ??F) 12/22/2017 10:[address] Respiratory Rate 18 12/22/2017 10:13 AM EST Oxygen Saturation 95% 12/22/2017 10:13 AM EST Inhaled Oxygen Concentration - - Weight 76.4 kg (168 lb 8 oz) 12/22/2017 10:13 AM EST Height 160 cm (5' 3 ) 12/22/2017 10:13 AM EST Body Mass Index 29.85 12/22/2017 10:13 AM EST documented in this encounter Medications at Time [...] documented in this encounter Progress Notes * Alena Camacho RN - 12/22/2017 10:01 AM EST Patient here today to see Dr. Ogden in consult for an abnormal pap smear. States started with vaginal bleeding approximately 2 weeks ago. * Riley Ogden MD - 12/22/2017 10:01 AM EST Patient: China Verde MR Number: [id number] Date of : 1945 Date of Visit: 12/22/2017 GYNECOLOGIC ONCOLOGY INITIAL ENCOUNTER CHIEF COMPLAINT: Cervical dysplasia and postmenopausal bleeding HISTORY OF PRESENT ILLNESS China Verde is a 72 y.o. who is seen today at the request of Dr. Anguiano for evaluation of cervical dysplasia. The patient had an abnormal pap with her PCP, Dr. Gilbert and was referred to Dr. Anguiano for colposcopy. This was followed by colposcopic directed biopsy, which showed DEL 3. She reports an abnormal pap smear 10 years ago that was normal on repeat. This is her first pap smear in the past [address] Anguiano's note, the patient has significant vaginal and cervical stenosis and the colposcopic exam was very difficult. Endometrial biopsy and endocervical curette was not possiblein office. She also reports postmenopausal bleeding for the past month. She describes this as light spotting, but had 2 days of heavier spotting . She reports menopause at age 47 and denies any previous episodes of vaginal bleeding. She also reports low pelvic cramping for several months. She denies changes in weight, appetite, early satiety, changes in bowel or bladder habits, or any other associated sympt oms. Nothing makes the bleeding or cramping better or worse. Past Medical History: Diagnosis Date ??? Anxiety ??? Back pain ??? GERD (gastroesophageal reflux disease) ??? HTN (hypertension) ??? Hyperlipidemia Past Surgical History: Procedure Laterality Date ??? CARPAL TUNNEL RELEASE ??? CATARACT REMOVAL ??? HEMORRHOID SURGERY ??? TUBAL LIGATION OB History Para Term AB Living 4 4 4 0 0 4 SAB TAB Ectopic Multiple Live Births 0 0 0 0 4 Obstetric Comments 4 vaginal deliveries. Abnormal pap smear 10 years ago and again most recent. Started periods 14 years Menopause 46yo GYNHx: as above. Social History Social History ??? Marital status: [...] unknown ??? Cancer Maternal Aunt type unknown Current Outpatient Prescriptions on File Prior to Encounter Medication Sig Dispense Refill ??? atorvastatin (LIPITOR) 10 mg Oral Tablet Take 10 mg by mouth. ??? ferrous sulfate 325 mg (65 mg iron) Oral Tablet Take 325 mg by mouth. ??? fUROsemide (LASIX) 20 mg Oral Tablet Take 20 mg by mouth. ??? gabapentin (NEURONTIN) 300 mg Oral Capsule Take 300 mg by mouth. ??? HYDROcodone-acetaminophen (NORCO) 5-325 mg Oral Tablet Take 1 Tab by mouth. ??? omeprazole (PRILOSEC) 40 mg Oral Capsule, Delayed Release(E.C.) Take 40 mg by mouth. ??? sertraline (ZOLOFT) 100 mg Oral Tablet Take 100 mg by mouth. ??? traZODone (DESYREL) 50 mg Oral Tablet Take 50 mg by mouth. No current facility-administered medications on file prior to encounter. Allergies not on file ROS: Otherwise negative x all systems including those asked per HPI. PE: BP 126/66 (BP Location: Right arm, Patient Position: Sitting) Pulse 75 Temp 97.9 ??F (36.6 ??C) Resp 18 Ht 5' 3 (1.6 m) Wt 168 lb 8 oz (76.4 kg) BMI 29.85 kg/m?? GEN: NAD. Alert and oriented x 3 HEENT: NCAT. EOMI. No icterus. MMM. Neck: Supple. No thyromegaly. Trachea midline. Cardiovascular: RRR. Normal s1 and s2. No MRG. Lungs: CTA bilaterally. Normal WOB. No rhonchi. Psych: Normal affect. Appropriately groomed and dressed. Appropriate interaction. Neurologic: Grossly intact as are cranial nerves 2-12. Lymphatic: No supraclavicular or inguinal adenopathy. Abdomen: Soft, non-tender, non-distended. Normoactive bowel sounds. No appreciable HSM. No hernia. Scar from PP BTL. Obese Genito-urinary: EGBUS are normal. Tolerated yellow speculum well. SSE shows normal appearing vaginal mucosa without lesion. The cervix is visualized with post-biopsy changes. Anterior cervix visualized well, posterior cervix more flush with posterior vagina and fornix. Bimanual exam revealed no adnexal mass or tenderness. Cervix mobile. There is no parametrial disease appreciated. Exam significantly limited by patient discomfort. Extremities: There was no clubbing, cyanosis or edema. No Mickey's sign. Skin: Warm / dry without apparent lesion. MEDICAL DECISION MAKING: I have reviewed and summarized above the patient's MD notes. I have reviewed and summarized above the patient's laboratory data. ASSESSMENT AND PLAN: China Verde is a 72 y.o. who is seen today at the request of Dr. Anguiano for evaluation of cervical dysplasia and postmenopausal bleeding. 1) Cervical Dysplasia (DEL 3): We discussed the natural history of cervical dysplasia, incluiding the patient's risk factors. We discussed our surgical treatment recommendation, including its alternatives, risks, and benefits. We discussed a cone biopsy. We discussed the risks of bleeding, infection, damage to surrounding organs, and recurrence to the vagina. We also discussed the possibility of finding an underlying malignancy, which may require further therapy. All questions answered. We havescheduled her surgery for 01/10/18. 2) Postmenopausal bleeding: We discussed performing an endometrial biopsy at the time of exam underanesthesia and cold knife cone procedure. We discussed the risks, including bleeding, infection anduterine perforation. We again discussed the possibility of finding an underlying malignancy, which may require further therapy. All questions were answered. The patient will undergo a pre-operative CBC, BMP, CXR, and EKG. Her METS > 4. She will see Dr. Gilbert for preoperative clearance. Maryam Reyna MD Gynecologic Oncology 12/22/2017 Patient seen and examined by me, above note edited to reflect my discussion, exam findings, and MDM Riley Ogden MD documented in this encounter Miscellaneous Notes * Patient Instructions - Alena Camacho RN - 12/22/2017 10:01 AM EST Discharge Instructions after Cone Biopsy You can [...] ??? Worsening pain or any other concerns. 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 Postmenopausal bleeding PMB (postmenopausal bleeding) Postmenopausal bleeding documented in this encounter Orders Nursing Count Last Ordered Date First Orde red Date AMB ONC SURGERY REQUEST COMM UNICATION ORDER VAGINA 1 12/22/2017 documented in this encounter Additional Health Concerns Assessment Noted Time A fall risk assessment has been complete d for the patient 12/11/2017 7:56 AM EST documented as of this encounter Care Teams Factory Maintenance Manager Relationship Specialty Start Date End Date Riley Ogden MD [address] [place] [phone] Consulting Physician Obstetrics & Gynecology-Gynecologic Oncology 12/22/17 Ramonita Anguiano MD [address] [place] [address] Referring Physician Obstetrics & Gynecology 12/21/17 documented as of this encounter
--- OUTSIDE RECORDS SUMMARY | 2024-08-28 16:01 | XMS_ITS | Encounter Summary ---
Author Organization [facility] Address [address] [place] [address] Care Team Providers Care Plastic Surgery Specialist Name Role Phone Nabil Gilbert MD Primary Care Provider [phone] [phone] Reason for Referral * Diagnostic Imaging (Routine) - Closed Specialty Diagnoses / Procedures Referred By Juan malone Referred To Contact Diagnoses Bilateral carotid artery stenosis Procedures Duplex Carotid Ultrasound Dada Zhao MD Phone: tel: fax: [address] [address] Phone: tel: Referral ID Status Reason Start Date Expiration Date Visits Re quested Visits Authorized [id number] Closed 07/06/2017 07/06/2018 1 1 Reason for Visit * Diagnostic Imaging (Routine) - Closed Specialty Diagnoses / Procedures Referred By Juan malone Referred To Contact Diagnoses Bilateral carotid artery stenosis Procedures Duplex Carotid Ultrasound Dada Zhao MD Phone: tel: fax: [address] [address] Phone: tel: Referral ID Status Reason Start Date Expiration Date Visits Re quested Visits Authorized [id number] Closed 07/06/2017 07/06/2018 1 1 Encounter Details Date Type Department Care Team (Late st Contact Info) Description 12/19/2017 10:51 AM EST - 12/19/2017 11:59 PM EST Hospital Encounter [facility] [address] [place] [id number] Dada Stevens MD [address] [place] [address] Bilateral carotid artery stenosis Discharge Disposition: Home or Self Care Social History Tobacco Use Types Packs/Day Years Used Date Smoking Tobacco: Former Cigarettes 30 2009 Alcohol Use Standard Drinks/Week Comments [...] Take 10 mg by mouth daily. 05/14/2016 ferrous sulfate 325 (65 FE) MG tablet [...] 50 mg by mouth every night. 05/14/2016 amLODIPine (NORVASC) 5 MG tablet Take 1 tablet by mouth daily. 90 tablet 3 07/08/2016 01/15/2019 furosemide (LASIX) 20 MG tablet Take 1 tablet by mouth daily. 90 tablet 3 07/08/2016 02/09/2019 documented as of this encounter Plan of Treatment Not on file documented as of this encounter Procedures Procedure Name Priority Date/Time Associated Diagnosis Comments DUPLEX CAROTID BILATERAL CAR Routine 12/19/2017 11:31 AM EST Bilateral carotid artery stenosis documented in this encounter Results * Duplex Carotid Ultrasound CAR (12/19/2017 11:31 AM EST) Prox CCA PSV 77.7 cm/sec [facility] RAD Prox CCA PSV 88.5 cm/sec [facility] RAD Prox CCA EDV 17.9 cm/sec [facility] RAD Prox CCA EDV 23.2 cm/sec [facility] left Mid CCA PSV 73.3 cm/sec [facility] RAD Right Mid CCA PSV 82.2 cm/sec [facility] RAD left Mid CCA EDV 21.0 cm/sec [facility] RAD right Mid CCA EDV 24.2 cm/sec [facility] RAD Dist CCA PSV 65.9 cm/sec [facility] RAD Dist CCA PSV 70.6 cm/sec [facility] RAD Dist CCA EDV 17.9 cm/sec [facility] RAD Dist CCA EDV 21.1 cm/sec [facility] RAD CCA ratio dayo 72.9 cm/sec E[facility] RAD CCA ratio dayo 81.7 cm/sec [facility] RAD Prox ECA PSV 58.5 cm/sec [facility] RAD Prox ECA PSV 75.9 cm/sec [facility] RAD Prox ICA PSV 321.5 cm/sec EMC RAD Prox ICA PSV 62.7 cm/sec E[facility] RAD Prox ICA EDV 116.0 cm/sec E[facility] RAD Prox ICA EDV 20.0 cm/sec E[facility] RAD Mid ICA PSV 338.5 cm/sec EMC RAD Mid ICA PSV 98.4 cm/sec EMC RAD Mid ICA EDV 106.4 cm/sec EMC RAD Mid ICA EDV 40.3 cm/sec E[facility] RAD Dist ICA PSV 114.9 cm/sec E[facility] RAD Dist ICA PSV 120.1 cm/sec EMC RAD Dist ICA EDV 37.3 cm/sec E[facility] RAD Dist ICA EDV 55.8 cm/sec E[facility] RAD ICA ratio dayo 394.0 cm/sec EMC RAD ICA ratio dayo 97.8 cm/sec EMC RAD Vertebral A PSV 102.9 cm/sec E[facility] RAD Vertebral A PSV 53.7 cm/sec [facility] RAD ICA/CCA ratio 5.4 E[facility] RAD ICA/CCA ratio 1.2 E[facility] RAD Prox SCLA PSV 169.5 cm/sec E[facility] RAD Prox SCLA PSV 337.2 cm/sec [facility] RAD Anatomical Region Laterality Modality Ultrasound 12/19/2017 11:0 6 AM EST Narrative 12/19/2017 12:24 PM EST ?? Right internal carotid artery stenosis = 0-49%. ?? Left internal carotid artery stenosis of is >70%. ?? Since 01/03/17, the study side (left ICA) ICA?CCA has increased from 5.0 to 5.4. ?? Bilateral vertebral artery flow remains antegrade. Study Impression ? ? Right ICA Prox: Imaging of the right ICA indicates 0-49% stenosis. Imaging of the right ICA indicates 0-49% stenosis. ? ? Left ICA Prox: Imaging of the left ICA indicates >70% stenosis. Imaging of the left ICA indicates >70% stenosis. Study Findings ? ? Right CCA Prox: No plaque visualized. ? ? Right CCA Dist: Irregular heterogeneous plaque present. ? ? Right ICA Prox: Irregular calcified heterogeneous plaque present. ? ? Right ICA Mid: Irregular heterogeneous plaque present. ? ? Right ICA Dist: Irregular heterogeneous plaque present. ? ? Right ECA: Irregular heterogeneous plaque present. ? ? Right Vertebral: Antegrade flow noted. ? ? Left CCA Dist: Irregular heterogeneous plaque present. ? ? Left ICA Prox: Irregular calcified heterogeneous plaque present. ? ? Left ICA Mid: Irregular calcified heterogeneous plaque present. ? ? Left ICA Dist: Irregular heterogeneous plaque present. ? ? Left ECA: Irregular heterogeneous plaque present. ? ? Left Vertebral: Antegrade flow noted. us Dada Stevens MD CV VASCULAR ORDERABLES Final Result documented in this encounter Visit Diagnoses Diagnosis Bilateral carotid artery stenosis Occlusion and stenosis of carotid artery without mention of cerebral infarction documented in this encounter Care Teams Plastic Surgery Specialist Relationship Specialty Start Date End Date Nabil Gilbert MD [address] [place] [facility] [address] [place] [address] PCP - General 12/22/15 documented as of this encounter
--- OUTSIDE RECORDS SUMMARY | 2024-08-28 16:01 | XMS_ITS | Encounter Summary ---
Author Organization [facility] Address [address] [place] [address] Care Team Providers Care Tripe Scraper Name Role Phone Nabil Gilbert MD Primary Care Provider [phone] Reason for Visit * Reason Comments Essential hypertension Encounter Details Date Type Department Care Team (Late st Contact Info) Description 05/12/2020 1:45 PM EDT Office Visit [facility] [address] [address] Dada Stevens MD [facility] [place] [address] Stenosis of left carotid artery (Primary Dx); Essential hypertension; Mixed hyperlipidemia Social History Tobacco Use Types Packs/Day Years Used Date Smoking Tobacco: Former Cigarettes 2 30 1 2009 Smokeless Tobacco: Never Alcohol Use Standard [...] Sign Reading Time Taken Comments Blood Pressure 142/65 05/12/2020 2:00 PM EDT Pulse 59 05/12/2020 2:00 PM EDT Temperature - - Respiratory Rate - - Oxygen Saturation - - Inhaled Oxygen Concentration - - Weight 77.3 kg (170 lb 6.4 oz) 05/12/2020 1:59 P M EDT Height 160 cm (5' 3 ) 05/12/2020 1:59 PM EDT Body Mass Index 30.19 05/12/2020 1:59 PM EDT documented in this encounter Progress Notes * Dada Stevens MD - 05/12/2020 1:45 PM EDT OFFICE FOLLOW UP Date of Encounter:05/12/2020 Name: China Verde : 1945 Address: [address] [place], [place] [id number] PCP: Nabil Gilbert MD [address] [facility] [address] [facility] [place] [address] China Verde is a 74 y.o. female. Chief Complaint: Follow up of Carotid stenosis Problem List: 1. Carotid artery disease: a. Cerebral angiogram, [facility], ??11/21/2014: ??Bilateral patent vertebral arteries with less than 50% [place] stenosis and greater than 70% LICA stenosis. b. Consented for CREST-2 trial, 12/26/2014??for LICA stenosis 1. CELY arm, medical management only 2. Completed CREST 2 protocol 01/2019 c. Carotid duplex 01/15/2019: 50-69% [place] stenosis, >70% LICA stenosis, bilateral vertebral flow is antegrade; since 12/19/2017 there has been an increase in bilateral carotid artery velocities?? d. LICA stent, 02/08/19: under CREST2 registry. e. Carotid duplex 05/12/20: <50% V[place], stented LICA patent with no re-stenosis 2. Hypertension. 3. Hyperlipidemia. 4. History of anemia. 5. GERD. 6. History of tobacco use, inactive 2008 Allergies: Allergies Allergen Reactions ??? Keflex [Cephalexin] Rash ??? Vesicare [Solifenacin] Rash Current Medications: ??? aspirin 81 MG tablet, Take 81 mg by mouth Daily. ??? atorvastatin (LIPITOR) 10 MG tablet, Take 10 mg by mouth daily ??? Cholecalciferol (VITAMIN D3) 5000 units capsule capsule, Take 5,000 Units by mouth Daily. ??? ferrous sulfate 325 (65 FE) MG tablet, Take 325 mg by mouth daily ??? gabapentin (NEURONTIN) 300 MG capsule, Take 300 mg by mouth 2 (two) times a day. ??? HYDROcodone-acetaminophen (NORCO) 5-325 MG per tablet, Take 1 tablet by mouth 3 (three) times aday. ??? losartan-hydrochlorothiazide (HYZAAR) 100-25 MG per tablet, Take 1 tablet by mouth daily. ??? omeprazole (PriLOSEC) 40 MG capsule, Take 40 mg by mouth daily. ??? sertraline (ZOLOFT) 100 MG tablet, Take 100 mg by mouth daily. ??? traZODone (DESYREL) 50 MG tablet, Take 50 mg by mouth every night ??? vitamin B-12 (CYANOCOBALAMIN) 1000 MCG tablet, Take 1,000 mcg by mouth 2 (Two) Times a Day ??? vitamin C (ASCORBIC ACID) 500 MG tablet, Take 1,500 mg by mouth Daily History of Present Illness: Mrs. Verde presents for follow up today. She denies any CVA or TIA symptoms since her last visit. She lives alone and does her housework and yardwork without concerns. She denies any cardiac symptoms. Home BPs are similar to today's reading. The following portions of the patient's history were reviewed and updated as appropriate: allergies, current medications and problem list. ROS: Pertinent positives as listed in the HPI. All other systems reviewed and negative. Objective: Vitals: 05/12/20 1359 05/12/20 1400 BP: 148/75 142/65 BP Location: Left arm Patient Position: Standing Pulse: 58 59 Weight: 77.3 kg (170 lb 6.4 oz) Height: 160 cm (63 ) Physical Exam: [...] clubbing, cyanosis, or edema noted. Diagnostic Data: Procedures Carotid duplex 05/12/20: Interpretation Summary ?? There is <50% right internal carotid stenosis. ?? The left internal carotid artery is stented and restenosis is NOT present. ?? Bilateral vertebral artery flow is antegrade. Assessment and Plan: 1. Carotid artery stenosis: carotid duplex today shows stented LICA is patent and she has <50% [place] stenosis. Continue current medical regimen. 2. HTN: slightly elevated, we will add Amlodipine 5mg daily to target SBP <130mmHg, and have asked her to continue close monitoring of her BP. 3. HLD: Continue Lipitor to target LDL <70, followed by PCP. 4. Follow up in 1 year, sooner if needed. Scribed for Dada Stevens MD by Mahsa Kauffman PA-C. 05/12/2020 14:45 documented in this encounter Plan of Treatment Not on file documented as of this encounter Visit Diagnoses Diagnosis Stenosis of left carotid artery- Primary Occlusion and stenosis of carotid artery without mention of cerebral infarction Essential hypertension Unspecified essential hypertension Mixed hyperlipidemia documented in this encounter Care Teams Tripe Scraper Relationship Specialty Start Date End Date Nabil Gilbert MD [address] [facility] [address] [facility] [address] [place] [address] PCP - General 12/22/15 documented as of this encounter
--- OUTSIDE RECORDS SUMMARY | 2024-08-28 16:01 | XMS_ITS | Clinical Summary ---
Author Organization [facility] Address [address] [place] [address] Care Team Providers Care Executive Administrative Assistant Name Role Phone Nabil Gilbert MD Primary Care Provider [phone] [phone] Allergies Active Allergy Reactions Criticality Noted Date Comments Cephalexin Rash Low 11/01/2016 Solifenacin Rash Low 06/15/2016 Medications traZODone (DESYREL) 50 MG tablet Take 50 mg by mouth every night. 05/14/2016 Active gabapentin (NEURONTIN) 300 MG capsule Take 300 mg by mouth 2 (two) times a day. 05/14/2016 Active omeprazole (PriLOSEC) 40 MG capsule Take 40 mg by mouth daily. 05/14/2016 Active HYDROcodone-acet aminophen (NORCO) 5-325 MG per tablet Take 1 tablet by mouth 3 (three) times a day. 05/13/2016 Active ferrous sulfate 325 (65 FE) MG tablet Take 325 mg by mouth daily. 03/08/2016 Active sertraline (ZOLOFT) 100 MG tablet Take 100 mg by mouth daily. 05/14/2016 Active losartan-hydroch lorothiazide (HYZAAR) 100-25 MG per tablet Take 1 tablet by mouth daily. 05/14/2016 Active atorvastatin (LIPITOR) 10 MG tablet Take 10 mg by mouth daily. 05/14/2016 Active aspirin 81 MG tablet Take 81 mg by mouth Daily. Active Cholecalciferol (VITAMIN D3) 5000 units capsule capsule Take 5,000 Units by mouth Daily. Active vitamin B-12 (CYANOCOBALAMIN) 1000 MCG tablet Take 1,000 mcg by mouth 2 (Two) Times a Day. Active vitamin C (ASCORBIC ACID) 500 MG tablet Take 1,500 mg by mouth Daily. Active amLODIPine (NORVASC) 5 MG tablet Take 1 tablet by mouth Daily. 30 tablet 11 05/12/2020 Active Active Problems Problem Noted Date Diagnosed Date Stenosis of left carotid artery 05/12/2020 GERD 02/08/2019 Former smoker quit in 200902/08/2019 LICA stenosis s/p stent per Dr. England 02/08/19 Hypertension Overview (06/16/2016): Hyperlipidemia Overview (06/16/2016): Asymptomatic mild right ICA stenosis Overview (02/08/2019): a. Cerebral angiogram, [facility], 11/21/2014: Bilateral patent vertebral arteries with less than 50% [place] stenosis and greater than 70% LICA stenosis. b. Carotid angiogram, 12/26/2014: Advanced atherosclerotic plaque at the left carotid bifurcation equaling about 72%, [id number] changes of fibromuscular dysplasia involving the mid- to distal cervical portions of the RCA. c. Consented for CREST-2 trial, 12/26/2014 Family History Medical History Relation Name Comments No Known Problems Brother 1 Alzheimer's disease Brother 2 Diabetes Brother 2 Hypertension Brother 2 Alzheimer's disease Brother 3 Hypertension Brother 3 Hypertension Brother 4 Heart disease Father Heart failure Father Hypertension Father Relation Name Status Comments Brother 1 Alive Brother 2 Brother 3 Brother 4 Father (Age 84) Mother (Age 38) Social History Tobacco Use Types Packs/Day Years Used Date Smoking Tobacco: Former Cigarettes 2 30 1 2009 Smokeless Tobacco: Never Alcohol Use Standard Drinks/Week Comments No 0 (1 standard drink = 0.6 oz pur e alcohol) Abuse Screen Answer Date Recorded Unsafe at Home or Work/School Not on file Feels Threatened by Someone? Not on file 07/2023 Does Anyone Keep You from Co ntacting Others or Doint Things Outside the Home? Not on file 07/25/2023 Physical Sign of Abuse Present Not on file 1 Housing Stability Answer Date Recorded Current Living Arrangements Not on file 07/16 Potentially Unsafe Housing Conditions Not on elena e 07/25/2023 Family and Community Support Answer Alverto e Recorded Help with Day-to-Day Activities Not on file 07/25/2023 Lonely or Isolated Not on file 07/25/2023 Employment Answer Date Recorded Do you want help finding or keeping work or a saw b? Not on file 07/25/2023 Disabilities Answer Date Recorded Concentrating, Remembering, or Making Decisions Difficulty Not on file 07/25/2023 Doing Errands Independently Difficulty Not on fi le 07/25/2023 Education Answer Date Recorded Help with school or training? Not on file Preferred Language Not on file 07/25/2023 Comments Unknown Sex and Gender Information Value [...] Pulse 59 05/12/2020 2:00 PM EDT Temperature 36.4 ??C (97.5 ??F) 02/09/2019 8:00 AM ED T Respiratory Rate 16 02/09/2019 10:00 AM EDT Oxygen Saturation 95% 02/09/2019 11:00 AM EDT Inhaled Oxygen Concentration - - Weight 77.3 kg (170 lb 6.4 oz) 05/12/2020 1:59 P M EDT Height 160 cm (5' 3 ) 05/12/2020 1:59 PM EDT Body Mass Index 30.19 05/12/2020 1:59 PM EDT Plan of Treatment Health Maintenance Due Date Last Done Comments COLOGUARD 1945 COLON CANCER SCREENING 5 YEA R SIGMOIDOSCOPY 1945 COLONOSCOPY 1945 COL[address]AL CANCER SCREENING 1945 CT COLONOGRAPHY 1945 DXA SCAN 1945 FECAL OCCULT BLOOD TEST 1945 FIT Testing (1 year) 1945 MAMMOGRAM 1945 ZOSTER VACCINE (1 of 2) 1993 Pneumococcal Vaccine 65+ (1 of 1 - PCV) 2008 ANNUAL WELLNESS VISIT 07/06/2017 RSV Vaccine - Adults (1 - 1- dose 75+ series) 2018 LIPID PANEL 01/16/2020 01/15/2019, 04/0 11/2018, 12/19/2017, Additional history exists INFLUENZA VACCINE 05/16/2024 07/06/2019, , 08/07/2018, Additional history exists COVID-19 Vaccine (1 - 2023-2 5 season) 2024 TDAP/TD VACCINES (3 - Td or Tdap) 10/02/2028 018, 12/20/1996 Medical Devices Implanted Type Area Fine Arts Teacher Device Identifier Shelf Expiration Date Model / Serial / Lot Stent Wall Carotid Mr 5.9f [id number] 135cm - [id number] Implanted:Qty: 1 on 02/08/2019 by Dada Stevens MD at [facility] Stent Distra GARRY [id number] / / Procedures Procedure Name Priority Date/Time Associated Diagnosis Comments LIPID PANEL Routine 01/15/2019 12:11 PM EDT Routine general medical examination at a health care facility [ICD-10-CM] from Last 3 Months or Most Recently Relevant to Health Maintenance Results * (ABNORMAL) Lipid Panel (01/15/2019 12:11 PM EDT) Total Cholesterol 156 0 - 200 mg/dL 01/15/2019 12:57 PM EDT [facility] Triglycerides 330(H) 0 - 150 mg/dL 01/15/2019 12:57 PM EDT [facility] HDL Cholesterol 38(L) 40 - 60 mg/dL 01/15/2019 12:57 PM EDT [facility] LDL Cholesterol 63 0 - 130 mg/dL 01/15/2019 12:57 PM EDT [facility] Blood Venipuncture / Unknown 01/15/2019 12:11 PM EDT 01/15/2019 12:11 PM EDT Narrative [facility] - 01/15/2019 12:57 PM EDT Cholesterol Reference Ranges: Desirable ? < 200 mg/dL Borderline ?200-239 mg/dL High Risk ? > 239 mg/dL Triglyceride Reference Ranges: Normal ?< 150 mg/dL Borderline ?150-199 mg/dL High ?200-499 mg/dL Very High ? > 499 mg/dL HDL Reference Ranges: Low ?< 40 mg/dL High ? > 59 mg/dL LDL Reference Ranges: Optimal ? < 100 mg/dL Near Optimal ??100-129 mg/dL Borderline ?130-159 mg/dL High ?160-189 mg/dL Very High ? > 189 mg/dL us Dada Stevens MD LAB BLOOD ORDERABLES Final Re [facility]
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 POWER OF DEVELOPMENT AND PLANNING ENGINEER - SCAN 12/19/2017 1:39 PM DURABLE POA 02/20/2017 * CPR (Attempt to Resuscitate) (Latest Code Status on File) Date Activated Date Inactivated Comments 02/08/2019 11:45 AM 02/09/2019 1:39 PM Question Answer Comments Code Status (Patient has no pulse and is not breathing): CPR (Attempt to Resuscitate) Medical Interventions (Patie nt has pulse or is breathing): Full Level Of Support Discussed With: Patient Care Teams Executive Administrative Assistant Relationship Specialty Start Date End Date Nabil Gilbert MD [address] [facility] [address] [facility] [address] [place] [address] PCP - General 12/22/15
--- OUTSIDE RECORDS SUMMARY | 2024-08-28 16:01 | XMS_ITS | Encounter Summary ---
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 Postmenopausal bleeding Procedures RI COLPOSC,CERVIX W/ADJ VAG,W/BX & CURRETAG RI OFFICE OUTPATIENT NEW 20 MINUTES Ramonita Anguiano MD Phone: tel: fax: Ramonita Anguiano MD Phone: tel: fax: Referral ID Status Reason Start Date Expiration Date Visits Re quested Visits Authorized [id number] Closed 12/11/2017 12/11/2018 1 1 Encounter Details Date Type Department Care Team (Late st Contact Info) Description 12/11/2017 8:00 AM EST Office Visit [facility] [address] [place] [address] Ramonita Anguiano MD [address] [place] [address] Post-menopausal bleeding (Primary Dx); HSIL (high grade squamous intraepithelial lesion) on Pap smear of cervix; Cervical stenosis (uterine cervix) Social History Tobacco Use Types Packs/Day Years [...] - Inhaled Oxygen Concentration - - Weight 80.6 kg (177 lb 12.8 oz) 12/11/2017 7:57 AM EST Height 160 cm (5' 3 ) 12/11/2017 7:57 AM EST Body Mass Index 31.5 12/11/2017 7:57 AM EST documented in this encounter Progress Notes * Ramonita Anguiano MD - 12/11/2017 8:00 AM EST Chief Complaint Patient presents with ??? Gynecologic Exam post menopausal bleeding and abnormal pap Pt is a 72 y.o. here for gynecologist problem visit. Patient had annual exam with pap smear at PCP and showed HSIL. She also reports a month history of vaginal bleeding. She states she has had no bleeding for about 2 weeks. Prior she states she had bright red bleeding in toilet and went through 3 pairs of underwear. She states she has had some bleeding previously, but just spotting. She reports nohx of abnormal pap smears (she said she had one repeated one time, but the doctor messed it up ). She denies every having a colposcopy, LEEP or cone procedure for abnormal pap. Last one about 12 years ago. TVUS Uterus 4.7x2x3.4cm, EMS 4mm ROS: General: denies unintended weight loss/gain, fever, chills GI: denies nausea, vomiting, diarrhea, abdominal pain : denies dysuria, see above Psych: denies depression Ht 5' 3 (1.6 m) Wt 177 lb 12.8 oz (80.6 kg) BMI 31.50 kg/m?? PE: Gen: NAD, pleasant female Colposcopy Note/EMB Pap: HSIL Reviewed cytology and possible histologic outcomes, role of HPV and smoking. Consented for colposcopy procedure Speculum was placed and cervix visualized partially - cervix very flush with vaginal mucosa and laxity of vaginal rojo severely hindered colposcopy Attempted EMB without success due to severe cervical stenosis SCJ visualized partially Ascetic acid was applied. Abnormalities noted: AW changes and vascularity at 11 o'clock and 6 o'clock Biopsy: yes only able to get 11 o'clock biopsy due to difficult grasping cervix with biopsy forcep ECC: yes Silver nitrate applied for hemostasis Pt instructed we will call with results and plan once pathology returns. A/P: [place] was seen today for gynecologic exam. Diagnoses and all orders for this visit: Post-menopausal bleeding - PATHOLOGY TISSUE REQUEST; Future HSIL (high grade squamous intraepithelial lesion) on Pap smear of cervix - RI COLPOSC,CERVIX W/ADJ VAG,W/BX & CURRETAG Cervical stenosis (uterine cervix) F/U prn. If high grade dysplasia found would recommend Oncology f/u due to severe stenosis and difficulty of exam given postmenopausal state of cervix/vagina - EMS only 4mm so could monitor PMB, but if continues needs hysteroscopy, D&C documented in this encounter Plan of Treatment Scheduled Orders Name Type Priority Associated Diagnoses Orde r Schedule RI COLPOSC,CERVIX W/ADJ VAG,W/BX & CURRETAG RI Charge Routine Hsil (High Grade Squamous Intraepithelial Lesion) On Pap Smear Of Cervix Ordered: 12/11/2017 documented as of this encounter Procedures Procedure Name Priority Date/Time Associated Diagnosis Comments SCANNED RADIOLOGY REPORT 12/12/2017 9:29 AM EST SCANNED LABS 12/12/2017 9:29 AM EST PATHOLOGY TISSUE REQUEST Routine 12/11/2017 2:00 PM EST Post-menopausal bleeding documented in this encounter Results * SCANNED LABS (12/12/2017 9:29 AM EST) 12/12/2017 9:29 AM EST us Unknown Unknown HEMATOLOGY ORDERABLES Final Resu lt * SCANNED RADIOLOGY REPORT (12/12/2017 9:29 AM EST) Anatomical Region Laterality Modality Other 12/12/2017 9:29 AM EST us Unknown Unknown IMG DIAGNOSTIC IMAGING ORDERABLE S Final Result * PATHOLOGY TISSUE REQUEST (12/11/2017 2:00 PM EST) CASE REPORT Surgical Pathology ?Case: [id number] ? Authorizing Provider: ??Ramonita Anguiano, Collected: ? 12/11/2017 1400 ? MD ? Ordering Location: ? [facility] ? Received: ?12/11/2017 0851 ? Pathologist: ? Cyn Davies MD ? Specimens: ?? A) - Cervix, ECC ? B) - Cervix, 11 O'CLOCK ? 02/23/2018 12:20 PM EDT [facility] FINAL DIAGNOSIS A) Endocervix, curetting: - Fragments of squamous mucosa with DEL-3 (high grade ADEN). - p16 is positive. - No endocervical epithelium is present. B) Cervix at 11 o'clock, biopsy: - Cervical stromal tissue with denuded mucosa and chronic inflammation. - Negative for dysplasia or malignancy. - p16 is negative. 02/23/2018 12:20 PM EDT [facility] NDUM The slides were reviewed as requested. Part A ECC specimen shows multiple fragments of isolated squamous epithelium with nuclear atypia and strongly positive for p16. The findings are consistent with high grade ADEN. The following cone biopsy [id number] slides were also reviewed. Multiple levels of deep sections and p16 stain were also performed. The cone biopsy showed mostly ectocervical tissue with no high grade ADEN noted. p16 is negative. The slides were also reviewed by Dr. Appiah with diagnostic agreement. The findings were texted to DR. Riley Hughes by Dr. Davies via [employer] on 02/23/2018. [facility]2018 [facility] Addendum electronically signed by Cyn Davies MD on 02/23/2018 at 12:20 PM GROSS DESCRIPTION The specimen is received in two parts, each in formalin labeled with the patient's name. Part A) Is designated ECC and is minute portions of black soft tissue with mucus aggregating to 0.7 x 0.1 x 0.1 cm. Entirely submitted in one cassette. / CDM Part B) Is designated cervix 11 o'clock and is two portions of black-white soft tissue 0.2 to 0.3 cm in greatest dimension. Entirely submitted in one cassette. / CDM 02/23/2018 12:20 PM EDT [facility] MICROSCOPIC DESCRIPTION Microscopic examination is performed and the findings corroborate the diagnosis. 02/23/2018 12:20 PM EDT [facility] EMBEDDED IMAGES 02/23/2018 12:20 PM EDT [facility] Tissue SPECIMEN FROM UTERINE CERVIX / Unknown 12/11/2017 2:00 PM EST 12/11/2017 8:51 AM EST Tissue specimen (specimen) SPECIMEN FROM UTERINE CERVIX / Unknown 12/11/2017 2:00 PM EST 12/11/2017 8:51 AM EST us Ramonita Anguiano MD PATHOLOGY ORDERABLES [place] [address] documented in this encounter Visit Diagnoses Diagnosis Post-menopausal bleeding- Primary Postmenopausal bleeding HSIL (high grade squamous intraepithelial lesion) on Pap smear of cervix Cervical stenosis (uterine cervix) Stricture and stenosis of cervix documented in this encounter Historical Medications * This list may reflect changes made after this encounter. atorvastatin (LIPITOR) 10 mg Oral Tablet Take 10 mg by mouth nightly. 05/14/2016 sertraline (ZOLOFT) 100 mg Oral Tablet Take 100 mg by mouth nightly. 05/14/2016 traZODone (DESYREL) 50 mg Oral Tablet Take 50 mg by mouth nightly. 05/14/2016 ferrous sulfate 325 mg (65 mg iron) Oral Tablet Take 325 mg by mouth daily. 03/08/2016 fUROsemide (LASIX) 20 mg Oral Tablet Take 20 mg by mouth daily. 07/08/2016 HYDROcodone-acetam inophen (NORCO) 5-325 mg Oral Tablet Take 1 Tab by mouth every 6 hours as needed. 05/13/2016 omeprazole (PRILOSEC) 40 mg Oral Capsule, Delayed Release(E.C.) Take 40 mg by mouth daily. 05/14/2016 gabapentin (NEURONTIN) 300 mg Oral Capsule Take 300 mg by mouth 2 times daily. 05/14/2016 added in this encounter Additional Health Concerns Assessment Noted Time A fall risk assessment has been complete d for the patient 12/11/2017 7:56 AM EST documented as of this encounter
--- OUTSIDE RECORDS SUMMARY | 2024-08-28 16:02 | XMS_ITS | Encounter Summary ---
[facility] Address [address] [place] [address] Care Team Providers Care Carpenter Mate Name Role Phone Nabil Gilbert MD Primary Care Provider [phone] [phone] Reason for Visit * Reason Comments Hypertension 24 hr. Ambulatory Bl ood Pressure Monitor Encounter Details Date Type Department Care Team (Late st Contact Info) Description 06/15/2016 3:00 PM EDT Office Visit [facility] [address] [address] Shanda Lemons, SUZANNE [address] [place] [id number] Essential hypertension (Primary Dx) Social History Tobacco Use Types Packs/Day Years Used Date Smoking Tobacco: Former Cigarettes 2 30 1 - 2009 Alcohol Use Standard Drinks/Week Comments No [...] Sign Reading Time Taken Comments Blood Pressure 180/89 06/15/2016 3:24 PM EDT Pulse 51 06/15/2016 3:24 PM EDT Regul ar Temperature 36.2 ??C (97.2 ??F) 06/15/2016 3:24 PM ED T Respiratory Rate 20 06/15/2016 3:24 PM EDT Oxygen Saturation - - Inhaled Oxygen Concentration - - Weight 82.6 kg (182 lb) 06/15/2016 3:24 PM EDT Height 160 cm (5' 3 ) 06/15/2016 3:24 PM EDT Body Mass Index 32.24 06/15/2016 3:24 PM EDT documented in this encounter Progress Notes * Shanda LemonsSUZANNE - 06/15/2016 3:33 PM EDT Encounter Date:06/15/2016 Patient ID: [place] Verde is a 70 y.o. female. Subjective: Chief Complaint: Hypertension (24 hr. Ambulatory Blood Pressure Monitor ) History of Present Illness Reason for Visit to [facility]: 24hr. Ambulatory Blood Pressure Monitor. Ms. Verde saw Dr. Stevens today for Hypertension. Dr. Stevens ordered several tests, including a 24hr ambulatory blood pressure monitor, which she comes in for today. History of HTN on hyzaar. Carotid artery disease (statin, ASA). Patient Active Problem List Diagnosis ??? Hypertension ??? Hyperlipidemia ??? Carotid stenosis The following portions of the patient's history were reviewed and updated as appropriate: allergies, current medications, past family history, past medical history, past social history, past surgicalhistory and problem list. Vitals: 06/15/16 1524 BP: 180/89 BP Location: Left arm Patient Position: Sitting Cuff Size: Adult Pulse: 51 Resp: 20 Temp: 97.2 ??F (36.2 ??C) TempSrc: Temporal Artery Weight: 182 lb (82.6 kg) Height: 63 (160 cm) Review of Systems Constitution: Negative for malaise/fatigue. Eyes: Negative for blurred vision. Cardiovascular: Negative for chest pain and dyspnea on exertion. Respiratory: Negative for shortness of breath. Neurological: Negative for dizziness. Review of symptoms not preformed. Objective: Vitals: 06/15/16 1524 BP: 180/89 BP Location: Left arm Patient Position: Sitting Cuff Size: Adult Pulse: 51 Resp: 20 Temp: 97.2 ??F (36.2 ??C) TempSrc: Temporal Artery Weight: 182 lb (82.6 kg) Height: 63 (160 cm) Physical Exam Constitutional: She is oriented to person, place, and time. She appears well- developed and well-nourished. No distress. Neurological: She is alert and oriented to person, place, and time. Skin: Skin is warm, dry and intact. No cyanosis. Assessment and Plan: 1. Essential hypertension The monitor was placed on her Left arm & she was instructed in its use and had no questions. She was provided with written instructions to refer to as well. She will wear the monitor until tomorrow around 4:00pm. She will mail it back to our office tomorrow or mail it to us for download. (per aRma Mcfarland, 06/16/16 8:55 AM) Results will be forwarded to Dr. Stevens for analysis and treatment adjustment if indicated. documented in this encounter Plan of Treatment Not on file documented as of this encounter Visit Diagnoses Diagnosis Essential hypertension- Primary Unspecified essential hypertension documented in this encounter Care Teams Carpenter Mate Relationship Specialty Start Date End Date Nabil Gilbert MD [address] [place] [facility] [address] [facility] [address] [place] [address] PCP - General 12/22/15 documented as of this encounter
--- OUTSIDE RECORDS SUMMARY | 2024-08-28 16:02 | XMS_ITS | Encounter Summary ---
[facility] [address] [place] [address] Care Team Providers Care Pellet Post Inspector Name Role Phone Nabil Gilbert MD Primary Care Provider [phone] [phone] Encounter Details Date Type Department Care Team (Late st Contact Info) Description 06/15/2016 3:30 PM EDT Office Visit [facility] [address] [address] Shanda Lemons APRN [address] [place] [id number] Social History Tobacco Use Types Packs/Day Years [...] on file documented as of this encounter Progress Notes * Shanda Lemons APRN - 06/16/2016 8:56 AM EDT 24 hour bp monitor placed on pt. See previous note/encounter. documented in this encounter Plan of Treatment Not on file documented as of this encounter Visit Diagnoses Not on filedocumented in this encounter Care Teams Pellet Post Inspector Relationship Specialty Start Date End Date Nabil Gilbert MD [address] [place] [facility] [address] [facility] [address] [place] [id number] PCP - General 12/22/15 documented as of this encounter
--- OUTSIDE RECORDS SUMMARY | 2024-08-28 16:02 | XMS_ITS | Encounter Summary ---
Author Organization [facility] Address [address] [place] [address] Care Team Providers Care Motion Picture Set Up Worker Name Role Phone Unavailable Primary Care Provider Unavailabl e Encounter Details Date Type Department Care Team (Late st Contact Info) Description 02/17/2015 11:20 AM EDT - 02/17/2015 11:59 PM EDT Hospital Encounter [address] [address] Dada Stevens MD [address] [place] [address] Discharge Disposition: Home or Self Care Social [...] Date/Time Associated Diagnosis Comments LIPID PANEL Routine 02/17/2015 11:25 AM EDT COMPREHENSIVE METABOLIC PANEL Routine 02/17/2015 11:25 AM EDT documented in this encounter Results * (ABNORMAL) Lipid panel (02/17/2015 11:25 AM EDT) Fasting? YES [facility] Total Cholesterol 126 0 - 200 mg/dL [facility] Comment: DF by IF @ 02/17/2015 12:55 ?? Cholesterol Reference Ranges: Desirable: ? less than 200 mg/dL Borderline: ?200-239 mg/dL High: ?greater than 239 mg/dL Triglycerides 181(H) 0 - 150 mg/dL [facility] Comment: DF by IF @ 02/17/2015 12:55 Triglyceride Reference Ranges: Normal ? less than 150 mg/dL Borderline ?150-199 mg/dL High ? 200-499 mg/dL Very High ? greater than 499 mg/dL HDL Cholesterol 34(L) 40 - 60 mg/dL [facility] Comment: DF by IF @ 02/17/2015 12:55 HDL Cholesterol Reference Ranges: Low ? less than 40 mg/dL High ?greater than 59 mg/dL LDL Cholesterol 60 0 - 130 mg/dL [facility] Comment: US by IF @ 02/17/2015 12:55 LDL Cholesterol Reference Ranges: Optimal ?less than 100 mg/dL Near Optimal ? 100-129 mg/dL Borderline ?130-159 mg/dL High ? 160-189 mg/dL Very High ? greater than 189 mg/dL Blood specimen (specimen) 02/17/2015 11:25 AM EDT Narrative [facility] - 02/17/2015 12:55 PM EDT Specimen Type: Blood us Dada Stevens MD LAB BLOOD ORDERABLES Final Re sult [facility] [address] [place] [address], * (ABNORMAL) Comprehensive metabolic panel (02/17/2015 11:25 AM EDT) Pathologist [facility] Glucose 98 70 - 100 mg/dL [facility] BUN 21 9 - 23 mg/dL [facility] Creatinine 1.2 0.6 - 1.3 mg/dL [facility] Sodium 140 132 - 146 mmol/L [facility] Potassium 4.3 3.5 - 5.5 mmol/L [facility] Chloride 101 99 - 109 mmol/L [facility] CO2 32(H) 20 - 31 mmol/L [facility] Calcium 9.9 8.7 - 10.4 mg/dL [facility] Alkaline Phosphatase 54 25 - 100 Units/L [facility] AST (SGOT) 62(H) 0 - 33 Units/L [facility] ALT (SGPT) 46(H) 7 - 40 Units/L [facility] Total Bilirubin 0.5 0.3 - 1.2 mg/dL [facility] Total Protein 7.0 5.7 - 8.2 g/dL [facility] Albumin 4.4 3.2 - 4.8 g/dL [facility] eGFR 49 ml/min/1.7 32 [facility] Comment: DF by IF @ 02/17/2015 12:55 ?? National Kidney Foundation Guidelines ?Stage ? Description ?GFR ?1 ?Normal or High ? 90+ ?2 ?Mild decrease ? 60-89 ?3 ?Moderate decrease ?30-59 ?4 ?Severe decrease ?15-29 ?5 ?Kidney failure ?<15 Anion Gap 8 3 - 11 mmol/L [facility] Blood specimen (specimen) 02/17/2015 11:25 AM EDT Narrative [facility] - 02/17/2015 12:55 PM EDT Specimen Type: Blood us Dada Stevens MD LAB BLOOD ORDERABLES Final Re sult [facility] [address] [place] [address], documented in this encounter Visit Diagnoses Not on filedocumented in this encounter
--- OUTSIDE RECORDS SUMMARY | 2024-08-28 16:02 | XMS_ITS | Encounter Summary ---
Author Organization [facility] Address [address] [place] [address] Care Team Providers Care Women'S Soccer Coach Name Role Phone Nabil Gilbert MD Primary Care Provider [phone] [phone] Encounter Details Date Type Department Care Team (Late st Contact Info) Description 12/15/2015 9:37 AM EST - 12/15/2015 11:59 PM EST Hospital Encounter [address] [place], [place] [id number] Dada Stevens MD [address] [place] [address] Discharge Disposition: Home or Self Care Social [...] Procedure Name Priority Date/Time Associated Diagnosis Comments HEMOGLOBIN STAT 12/15/2015 9:40 AM EST POTASSIUM STAT 12/15/2015 9:40 AM EST HEMOGLOBIN A1C STAT 12/15/2015 9:40 AM EST CREATININE SERUM (KIDNEY FUNCTION) GFR COMPONENT STAT 12/15/2015 9:40 AM EST LIPID PANEL STAT 12/15/2015 9:40 AM EST documented in this encounter Results * Potassium (12/15/2015 9:40 AM EST) Potassium 4.4 3.5 - 5.5 mmol/L [facility] Blood specimen (specimen) 12/15/2015 9:40 AM EST 12/15/2015 9:40 AM EST Narrative [facility] - 12/15/2015 11:21 AM EST Specimen Type : Blood us Dada Stevens MD LAB BLOOD ORDERABLES Final Re sult [facility]
[address] [place] [address], * Creatinine, serum (12/15/2015 9:40 AM EST) Creatinine 1.0 0.6 - 1.3 mg/dL [facility] Est GFR by Clearance 55 ml/min/1.7 32 [facility] Comment: ?? National Kidney Foundation Guidelines ?Stage ? Description ?GFR ?1 ?Normal or High ? 90+ ?2 ?Mild decrease ? 60-89 ?3 ?Moderate decrease ?30-59 ?4 ?Severe decrease ?15-29 ?5 ?Kidney failure ?<15 The MDRD GFR formula is only valid for adults with stable renal function between ages 18 and 70. Blood specimen (specimen) 12/15/2015 9:40 AM EST 12/15/2015 9:40 AM EST [facility] - 12/15/2015 11:21 AM EST Specimen Type : Blood Dada Stevens MD LAB BLOOD ORDERABLES Final Re sult Performing Organization Address [facility] de Phone Number [facility]
[address] [place] [address], * Hemoglobin A1c (12/15/2015 9:40 AM EST) Hemoglobin A1C 5.8 4.00 - 6.00 % [facility] Comment: The [place] [employer] recommends maintenance of Hemoglobin A1C at 7.0% or lower. Goals for Hemoglobin A1C reduction may need to be modified if hypoglycemia is a problem. Mean Bld Glu Estim. 114 mg/dL [facility] Blood specimen (specimen) 12/15/2015 9:40 AM EST 12/15/2015 9:41 AM EST [facility] - 12/15/2015 11:14 AM EST Specimen Type : Blood Dada Stevens MD LAB BLOOD ORDERABLES Final Re sult Performing Organization Address [facility] de Phone Number [facility]
[address] [place] [address], * Hemoglobin (12/15/2015 9:40 AM EST) Hemoglobin CANCELED g/dL [facility] Comment: Canceled result- Result previously reported as 12.8. ? Result changed 12/15/2015 13:51 EST by [id number]. Blood specimen (specimen) 12/15/2015 9:40 AM EST 12/15/2015 9:41 AM EST Narrative [facility] - 12/15/2015 1:51 PM EST Specimen Type : Blood us Dada Setvens MD LAB BLOOD ORDERABLES Edited R esult - Final [facility]
[address] [place] [address], * (ABNORMAL) Lipid panel (12/15/2015 9:40 AM EST) Fasting? yes [facility] Total Cholesterol 146 0 - 200 mg/dL [facility] Comment: ?? Cholesterol Reference Ranges: Desirable: ? less than 200 mg/dL Borderline: ?200-239 mg/dL High: ?greater than 239 mg/dL Triglycerides 237(H) 0 - 150 mg/dL [facility] Comment: Triglyceride Reference Ranges: Normal ? less than 150 mg/dL Borderline ?150-199 mg/dL High ? 200-499 mg/dL Very High ? greater than 499 mg/dL HDL Cholesterol 36(L) 40 - 60 mg/dL [facility] Comment: HDL Cholesterol Reference Ranges: Low ? less than 40 mg/dL High ?greater than 59 mg/dL LDL Cholesterol 63 0 - 130 mg/dL [facility] Comment: LDL Cholesterol Reference Ranges: Optimal ?less than 100 mg/dL Near Optimal ? 100-129 mg/dL Borderline ?130-159 mg/dL High ? 160-189 mg/dL Very High ? greater than 189 mg/dL Blood specimen (specimen) 12/15/2015 9:40 AM EST 12/15/2015 9:40 AM EST Narrative [facility] - 12/15/2015 11:21 AM EST Specimen Type : Blood Dada Stevens MD LAB BLOOD ORDERABLES Final Re sult [facility]
[address] [place] [address], documented in this encounter Visit Diagnoses Not on filedocumented in this encounter Care Teams Women'S Soccer Coach Relationship Specialty Start Date End Date Nabil Gilbert MD [address] [facility] [address] [facility] [address] [place] [address] PCP - General 12/15/15 12/15/15 documented as of this encounter
--- OUTSIDE RECORDS SUMMARY | 2024-08-28 16:02 | XMS_ITS | Encounter Summary ---
[facility] Address [address] [place] [address] Care Team Providers Care Licensed Journeyman Electrician Name Role Phone Nabil Gilbert MD Primary Care Provider [phone] [phone] Encounter Details Date Type Department Care Team (Late st Contact Info) Description 12/15/2015 12:14 PM EST - 12/15/2015 11:59 PM [facility] Hospital Encounter [facility] [address] [place] [address] Dada Stevens MD [address] [place] [address] Discharge Disposition: Home or Self Care Social [...] on filedocumented in this encounter Care Teams Licensed Journeyman Electrician Relationship Specialty Start Date End Date Nabil Gilbert MD [address] [facility] [address] [place] [address] PCP - General 12/15/15 12/15/15 documented as of this encounter
--- OUTSIDE RECORDS SUMMARY | 2024-08-28 16:02 | XMS_ITS | Encounter Summary ---
[facility] Address [address] [place] [address] Care Team Providers Care Pump Press Operator Name Role Phone Nabil Gilbert MD Primary Care Provider +1 [phone] Reason for Visit * Reason Comments Carotid Artery Disease Encounter Details Date Type Department Care Team (Latest Contact Info) Description 12/19/2017 1:00 PM EST Office Visit [facility] [address] [place] [phone] Stenosis of left carotid artery (Primary Dx) Social History Tobacco Use Types [...] as of this encounter Progress Notes * Polly Fernando RN - 12/19/2017 1:00 PM EST 12/19/2017 [place] 1945 CREST-2 3 YEAR FOLLOWUP Left ICA STENOSIS ARM OF STUDY: CELY - Intense medical management only Current Outpatient Prescriptions: ??? amLODIPine (NORVASC) 5 MG tablet, Take 1 tablet by mouth daily., Disp: 90 tablet, Rfl: 3 ??? aspirin 325 MG tablet, Take 325 mg by mouth Daily., Disp: , Rfl: ??? atorvastatin (LIPITOR) 10 MG tablet, Take 10 mg by mouth daily., Disp: , Rfl: ??? ferrous sulfate 325 (65 FE) MG tablet, Take 325 mg by mouth daily., Disp: , Rfl: ??? furosemide (LASIX) 20 MG tablet, Take 1 tablet by mouth daily., Disp: 90 tablet, Rfl: 3 ??? gabapentin (NEURONTIN) 300 MG capsule, Take 300 mg by mouth 2 (two) times a day., Disp: , Rfl: ??? HYDROcodone-acetaminophen (NORCO) 5-325 MG per tablet, Take 1 tablet by mouth 3 (three) times aday., Disp: , Rfl: ??? losartan-hydrochlorothiazide (HYZAAR) 100-25 MG per tablet, Take 1 tablet by mouth daily., Disp: , Rfl: ??? omeprazole (PriLOSEC) 40 MG capsule, Take 40 mg by mouth daily., Disp: , Rfl: ??? sertraline (ZOLOFT) 100 MG tablet, Take 100 mg by mouth daily., Disp: , Rfl: ??? traZODone (DESYREL) 50 MG tablet, Take 50 mg by mouth every night., Disp: , Rfl: AVERAGE BP: 124/63, HR 60 There were no vitals filed for this visit. RECENT LABS: Pending CAROTID DUPLEX Unchanged ORDERS AND MEDICATION CHANGES: No changes pending lab review. *THERE IS NO CHARGE FOR THIS VISIT* CAROLINE Salmeron MD documented in this encounter Plan of Treatment Not on file documented as of this encounter Visit Diagnoses Diagnosis Stenosis of left carotid artery- Primary Occlusion and stenosis of carotid artery without mention of cerebral infarction documented in this encounter Care Teams Pump Press Operator Relationship Specialty Start Date End Date Nabil Gilbert MD [facility] [address] [facility] [address] [place] [address] PCP - General 12/22/15 documented as of this encounter
--- OUTSIDE RECORDS SUMMARY | 2024-08-28 16:02 | XMS_ITS | Encounter Summary ---
Author Organization [facility] Address [address] [place] [address] Care Team Providers Care Police Liaison Name Role Phone Nabil Gilbert MD Primary Care Provider [phone] [phone] Reason for Visit * Reason Comments Carotid Artery Disease Encounter Details Date Type Department Care Team (Late st Contact Info) Description 01/03/2017 12:15 PM EDT Office Visit [facility] [address] [facility] [address] [place] [address] Dada Setvens MD [facility] [place] [address] Bilateral carotid artery stenosis (Primary Dx) Social History Tobacco Use Types [...] as of this encounter Progress Notes * Dada Stevens MD - 01/03/2017 12:15 PM EDT 01/03/2017 CREST-2 2 year FOLLOWUP Left ICA STENOSIS ARM OF STUDY: CELY arm - Medical Management Only Current Outpatient Prescriptions: ??? amLODIPine (NORVASC) 5 [...] mouth every night., Disp: , Rfl: AVERAGE BP 121/60 HR 64 Weight 184.4 lbs RECENT LABS: Labs 01/03/2017 Total chol 166 Triglycerides 361 HDL 37 LDL 57 Potassium 4.2 CAROTID DUPLEX REVEALS no significant change. ORDERS AND MEDICATION CHANGES: Continue current medications and recommendations. *THERE IS NO CHARGE FOR THIS VISIT* Nabil Gilbert MD PRIMARY CHILD SUPPORT OFFICER: documented in this encounter Plan of Treatment Not on file documented as of this encounter Visit Diagnoses Diagnosis Bilateral carotid artery stenosis- Primary Occlusion and stenosis of carotid artery without mention of cerebral infarction documented in this encounter Care Teams Police Liaison Relationship Specialty Start Date End Date Nabil Gilbert MD [facility] [facility] [address] [facility] [address] [place] [address] PCP - General 12/22/15 documented as of this encounter
--- OUTSIDE RECORDS SUMMARY | 2024-08-28 16:02 | XMS_ITS | Encounter Summary ---
[facility] Address [address] [place] [address] Care Team Providers Care Scooping Machine Tender Name Role Phone Nabil Gilbert MD Primary Care Provider [phone] [phone] Encounter Details Date Type Department Care Team (Late st Contact Info) Description 07/08/2016 Telephone [facility] [address] [facility] [address] [place] [address] Polly Fernando, MANAGER HOME IMPROVEMENT [address] [facility] [address] [place] [address] Social History Tobacco Use Types Packs/Day Years [...] encounter Miscellaneous Notes * Telephone Encounter - Polly Fernando RN - 07/08/2016 9:04 AM EDT MRJ reviewed 24 hour BP monitor worn 06/15/16. Average BP 150/68 while awake. Orders noted to decrease Lasix to 20 mg daily and add Amlodipine 5 mg daily. Alyse in Research aware. [facility] documented in this encounter Plan of Treatment Not on file documented as of this encounter Visit Diagnoses Not on filedocumented in this encounter Care Teams Scooping Machine Tender Relationship Specialty Start Date End Date Nabil Gilbert MD [address] [facility] [address] [facility] [address] [place] [address] PCP - General 12/22/15 documented as of this encounter
--- OUTSIDE RECORDS SUMMARY | 2024-08-28 16:02 | XMS_ITS | Encounter Summary ---
Author Organization [facility] Address [address] [place] [address] Care Team Providers Care Mobile Sales Technician Name Role Phone Provider, No Known Primary Care Provider Unavail able Encounter Details Date Type Department Care Team (Late st Contact Info) Description 02/17/2015 Office Visit Converted [facility] [address] [facility] [address] [place] [id number] Dada Stevens MD [address] [place] [address] Social History Tobacco Use Types Packs/Day Years Used Date Smoking Tobacco: Never Assessed Comments Unknown Sex and Gender Information Value Date Recorded Sex Assigned at Not on file Legal Sex Female 1:50 PM EDT Gender Identity Not on file Sexual Orientation Not on file documented as of this encounter Progress Notes * Dada Stevens MD - 02/17/2015 11:00 AM EDT LOCATION: [facility] PRIMARY CARE PROVIDER: Ramon Gilbert MD REFERRING PHYSICIAN: Gonsalo Escalera MD NEURO INTERVENTIONAL RADIOLOGIST: Willaim England MD IDENTIFICATION: A 69-year-old female, resident of [place], [place]. PROBLEM LIST: 1. Carotid artery disease: a. Cerebral angiogram, [facility], 11/21/2014: Bilateral patent vertebral arteries with lessthan 50% VIRGINIA stenosis and greater than 70% LICA stenosis. Carotid angiogram, 12/26/2014: Advanced atherosclerotic plaque at the left carotid bifurcation equaling about 72%, [id number] changes of fibromuscular dysplasia involving the mid- to distal cervical portions of the RCA. Consented for CREST-2 trial, 12/26/2014. 2. Hypertension. Hyperlipidemia. History of anemia. GERD. History of tobacco use. ALLERGIES: KEFLEX. CURRENT MEDICATIONS: 1. Aspirin 81 mg daily. Lipitor 10 mg daily. Gabapentin 300 mg t.i.d. Omeprazole 40 mg daily. Furosemide 40 mg daily. Ferrous sulfate 325 daily. Trazodone 50 mg at bedtime. Sertraline 100 mg daily. Losartan/HCTZ 100/25 daily. HISTORY OF PRESENT ILLNESS: Ms. Verde is a 69-year-old white female who was recently found to have a carotid bruit. A carotid duplex was done, and she was found to have greater than 70% stenosis in her LICA. She was sent by her primary care doctor to Dr. Escalera for further evaluation, and he recommended her for a carotid angiogram. Upon carotid angiogram, Dr. England found she had a greater than 70% stenosis, and she agreed to participate in the CREST-2 trial. Today, she is just following up with Dr. Stevens to be randomized into that trial. The patient has been asymptomatic with no history of stroke, TIA, or symptoms suggestive of that. The patient denies any coronary disease, chest pain, or shortness of breath with exertion. She does state that, in the past, she has had some bleeding with higher dose aspirin but has done fine with a low-dose 81 mg aspirin. The patient is doing well atthe current time with current medication therapy. SOCIAL HISTORY: The patient is and has not smoked in greater than 10 years. She is a resident of [place], [place]. FAMILY HISTORY: A brother in his 50s from an [place]. REVIEW OF SYSTEMS: Pertinent positives noted in HPI and problem list. All others are reviewed and are negative. OBJECTIVE: VITAL SIGNS: Blood pressure 112/53 right arm sitting, 109/55 right arm standing, pulse 58, weight 179 pounds, height 5 feet 3 inches, BMI 31.5. GENERAL: Pleasant 69-year-old white female who is alert and oriented x3, in no acute distress. HEENT: Normocephalic, atraumatic. PERRLA, EOMI. NECK: No jugular venous distention, and a left carotid bruit is appreciated. LUNGS: Clear to auscultation bilaterally. No wheezes, rhonchi, or rales. CARDIAC: Normal S1 and S2. No murmur, gallop, or rub appreciated. EXTREMITIES: Without edema and 2+ pedal pulses. NEUROLOGIC: No focal deficits. MUSCULOSKELETAL: No bony abnormalities. SKIN: Warm, pink and dry. LABORATORY DATA: Total cholesterol 126, triglycerides 181, HDL 34, LDL 60, AST 62, ALT 46. ASSESSMENT AND PLAN: The patient is a 69-year-old with LICA greater than 70% carotid stenosis. She is asymptomatic at this current time. She has consented to be a part of the CREST-2 trial and will be randomized to a medication arm or stent arm after this consultation. We will follow her, and the research nurses will follow her progress, including her lipid status and her blood pressure. It is ofnote that, even though under CREST-2 protocol, aspirin 325 mg is recommended, she is cleared to take a lower dose aspirin due to her increased risk of bleeding in the past. We will follow up with mally a regular basis. This is Corazon Coello PA-C, dictating as a scribe for Dr. Dada Stevens. KUMAR Peralta MD, [facility] /brr cc: Ramon Gilbert MD [facility] Electronically signed by:Corazon Coello PA-C Mar 15 2015 6:48PM EST Co-author Electronically signed by:Dada Stevens MD Mar 16 2015 7:40AM EST documented in this encounter Plan of Treatment Not on file documented as of this encounter Visit Diagnoses Not on filedocumented in this encounter Care Teams Mobile Sales Technician Relationship Specialty Start Date End Date Provider, [place] [address] PCP - General 07/10/15 12/14/15 documented as of this encounter
--- OUTSIDE RECORDS SUMMARY | 2024-08-28 16:02 | XMS_ITS | Encounter Summary ---
Author Organization [facility] Address [address] [place] [address] Care Team Providers Care Machine Tack Puller Name Role Phone Nabil Gilbert MD Primary Care Provider [phone] [phone] Reason for Visit * Diagnostic Imaging (Routine) - Closed Specialty Diagnoses / Procedures Referred By Contac t Referred To Contact Cardiology Diagnoses Carotid stenosis, bilateral Hyperlipidemia Procedures DUPLEX CAROTID BILATERAL CAR BH CV CAROTIDS Dada Stevens MD Phone: tel: fax: [facility] [address] [facility] [address] [place] [address] Phone: tel: fax: Referral ID Status Reason Start Date Expiration Date Visits Re quested Visits Authorized [id number] Closed 01/03/2017 01/04/2017 1 1 Encounter Details Date Type Department Care Team (Late st Contact Info) Description 01/03/2017 10:24 AM EDT - 01/03/2017 11:59 PM EDT Hospital Encounter [facility] [address] [facility] [address] [place] [address] Dada Stevens MD [address] [place] [address] Discharge Disposition: Home or Self Care Social [...] Diagnosis Comments DUPLEX CAROTID BILATERAL CAR Routine 01/03/2017 10:54 AM EDT Carotid stenosis, bilateral Hyperlipidemia documented in this encounter Results * Duplex carotid ultrasound CAR (01/03/2017 10:54 AM EDT) BSA 1.8 m^2 E[facility] RAD Prox CCA PSV 90.1 cm/sec EMC RAD Prox CCA PSV 62.4 cm/sec EMC RAD Prox CCA EDV 16.1 cm/sec EMC RAD Prox CCA EDV 17.7 cm/sec EMC RAD left Mid CCA PSV 77.1 cm/sec EMC RAD Right Mid CCA PSV 67.3 cm/sec EMC RAD left Mid CCA EDV 17.7 cm/sec EMC RAD right Mid CCA EDV 13.8 cm/sec EMC RAD Dist CCA PSV 52.5 cm/sec EMC RAD Dist CCA PSV 75.1 cm/sec EMC RAD Dist CCA EDV 7.9 cm/sec EMC RAD Dist CCA EDV 14.7 cm/sec EMC RAD CCA ratio dayo 77.1 cm/sec EMC RAD CCA ratio dayo 75.1 cm/sec EMC RAD Prox ECA PSV 68.8 cm/sec EMC RAD Prox ECA PSV 57.5 cm/sec EMC RAD Prox ICA PSV 299.0 cm/sec EMC RAD Prox ICA PSV 64.8 cm/sec EMC RAD Prox ICA EDV 82.5 cm/sec EMC RAD Prox ICA EDV 18.7 cm/sec EMC RAD Mid ICA PSV 385.0 cm/sec EMC RAD Mid ICA PSV 76.1 cm/sec EMC RAD Mid ICA EDV 64.8 cm/sec EMC RAD Mid ICA EDV 21.6 cm/sec EMC RAD Dist ICA PSV 387.0 cm/sec EMC RAD Dist ICA PSV 93.6 cm/sec EMC RAD Dist ICA EDV 66.8 cm/sec EMC RAD Dist ICA EDV 27.9 cm/sec EMC RAD ICA ratio dayo 385.0 cm/sec EMC RAD ICA ratio dayo 76.1 cm/sec EMC RAD Vertebral A PSV 87.2 cm/sec EMC RAD Vertebral A PSV 42.6 cm/sec EMC RAD Vertebral A EDV 18.9 cm/sec EMC RAD Vertebral A EDV 9.8 cm/sec EMC RAD ICA/CCA ratio 5.0 EMC RAD ICA/CCA ratio 1.0 EMC RAD Prox SCLA PSV 177.0 cm/sec EMC RAD Prox SCLA PSV 236.0 cm/sec EMC RAD CV ECHO JUAN - BZI_BMI 31.9 kilograms/ m^2 EMC RAD CV ECHO JUAN - BSA([place]OCK) 1.9 m^2 EMC RAD CV ECHO JUAN - BZI_METRIC_WEIG HT 81.6 kg EMC RAD CV ECHO JUAN - BZI_METRIC_HEIG HT 160.0 cm EMC RAD Left arm BP 137/72 mmHg EMC RAD Right arm BP 128/67 mmHg EMC RAD Anatomical Region Laterality Modality Ultrasound 01/03/2017 10:3 1 AM EDT Narrative 01/03/2017 12:10 PM EDT ?? There is less than 50% [place] stenosis. ?? There is >70% LICA stenosis. ?? There is bilateral antegrade vertebral artery flow. ?? Since 12/15/2015, the ICA/CCA velocity on the left has increased without changes in PSV or PDV values; significance is uncertain. Study Findings ? ? Right CCA Dist: Irregular heterogeneous plaque present. ? ? Right ICA Prox: Irregular heterogeneous plaque present. ? ? Right Vertebral: Antegrade flow noted. ? ? Left ICA Prox: Irregular heterogeneous plaque present. ? ? Left ICA Mid: Irregular heterogeneous plaque present. ? ? Left ICA Dist: Irregular heterogeneous plaque present. ? ? Left Vertebral: Antegrade flow noted. us Dada Stevens MD CV VASCULAR ORDERABLES Final Result documented in this encounter Visit Diagnoses Not on filedocumented in this encounter Care Teams Machine Tack Puller Relationship Specialty Start Date End Date Nabil Gilbert MD [address] [facility] [address] [place] [address] PCP - General 12/22/15 documented as of this encounter
--- OUTSIDE RECORDS SUMMARY | 2024-08-28 16:02 | XMS_ITS | Encounter Summary ---
Author Organization [facility] Address [address] [place] [address] Care Team Providers Care Buckle Stringer Name Role Phone Nabil Gilbert MD Primary Care Provider [phone] [phone] Encounter Details Date Type Department Care Team (Late st Contact Info) Description 12/15/2015 Documentation Converted [facility] HISTOR[facility] CONV [address] [place] [address] Social History Tobacco Use Types Packs/Day Years Used Date Smoking Tobacco: Never Assessed Comments Unknown Sex and Gender Information Value Date Recorded Sex Assigned at Not on file Legal Sex Female 1:50 PM EDT Gender Identity Not on file Sexual Orientation Not on file documented as of this encounter Progress Notes * Dada Stevens MD - 12/15/2015 12:00 AM EST LOCATION: [facility] This is a 1-year Crest-2 followup. The patient is active and asymptomatic. Blood pressures are ???at target.?? We are awaiting her duplex and lipid reports. This was discussed with Marleen Mcqueen RN. Dada Stevens MD, FAC, [facility] MRJ/rxsch [facility] Electronically signed by:Dada Stevens MD Dec 29 2015 10:46AM EST documented in this encounter Plan of Treatment Not on file documented as of this encounter Visit Diagnoses Not on filedocumented in this encounter Care Teams Buckle Stringer Relationship Specialty Start Date End Date Nabil Gilbert MD [address] [facility] [address] [place] [address] PCP - General 12/22/15 documented as of this encounter
--- OUTSIDE RECORDS SUMMARY | 2024-08-28 16:02 | XMS_ITS | Encounter Summary ---
[facility] Address [address] [place] [address] Care Team Providers Care Deburr Technician Name Role Phone Unavailable Primary Care Provider Unavailabl e Encounter Details Date Type Department Care Team (Late st Contact Info) Description 12/26/2014 7:04 AM EDT - 12/26/2014 4:20 PM EDT Hospital Encounter [facility] DEPARTMENT [address] [phone] William Carrillo MD [address] [place] [address] Social History Tobacco Use Types Packs/Day Years Used Date Smoking Tobacco: Never Assessed Comments Unknown Sex and Gender Information Value Date Recorded Sex Assigned at Not on file Legal Sex Female 1:50 PM EDT Gender Identity Not on file Sexual Orientation Not on file documented as of this encounter OR Notes * Op Note - Interface, See Report - 12/26/2014 7:04 AM EDT [facility] [address] [place] [id number] PROCEDURE NOTE PATIENT NAME: BERNICE NAVARRETE ROOM NUMBER: [id number] VISIT NUMBER: [id number] DATE OF : 1945 DATE OF ADMISSION: 12/26/2014 DATE OF PROCEDURE: 12/26/2014 REFERRING PHYSICIAN: William Carrillo MD*. ADMITTING PHYSICIAN: William Carrillo MD*. CONSULTANTS: 1. Roly Gilbert M.D.*, Primary Care Physician. 2. Gonsalo Escalera MD*, Neurosurgeon. LINING CLEANER: William Carrillo MD*. INDICATIONS FOR THIS PROCEDURE: The patient was a 69-year-old female with a cardiovascular risk factor of hypertension. The patient had a carotid duplex examination that demonstrated increased velocities within the left carotid vasculature (peak systolic 329 cm/second and peak end-diastolic 96 cm/second) that was concerning for high-grade stenosis. The patient denied any symptoms of unilateral weakness or numbness with no speech or vision changes. The patient presented for definitive catheter angiography to evaluate her carotid vasculature for possible intervention. ACCESS: Right common femoral artery. CONTRAST USAGE: A dose of 55 mL of Visipaque-320. ESTIMATED BLOOD LOSS: Negligible. COMPLICATIONS: None apparent. PROCEDURE(S) PERFORMED: 1. Selective bilateral common carotid artery catheterization with subsequent diagnostic bilateral extracranial and intracranial carotid artery angiography. 2. Selective left vertebral artery catheterization with subsequent left vertebral artery angiography. 3. Placement of an arterial closure device. DESCRIPTION OF THE PROCEDURE: Formal written consent for the procedure was obtained from the patient and the patient's family after explaining risks to include bleeding, infection, contrast reaction, vascular injury, and stroke. The right groin region was prepped and draped in the usual, sterile fashion. Local anesthesia with 1% lidocaine infiltration was achieved. Additionally, intravenous fentanyl and Versed were given for patient comfort throughout the procedure, the details of which were documented in the nursing record. Utilizing micropuncture technique, a 5-Sammarinese, vascular sheath was placed into the right common femoral artery without difficulty. Subsequently, a 5-Sammarinese, Berenstein catheter was advanced into the aortic arch and used to select the left subclavian and left vertebral arteries under fluoroscopic guidance. Appropriate angiographic sequences were filmed following contrast injection. The Berenstein catheter was then exchanged for a 5-Sammarinese, Webster II catheter, which was used to select the bilateral common carotid arteries under fluoroscopic guidance. Appropriate angiographic sequences were filmed following contrast injection. At the end of the procedure, all catheters and sheaths were removed from the groin, and hemostasis was achieved at the puncture site utilizing manual compression and placement of a 6-Sammarinese, Angio-Seal, arterial closure device. The patient tolerated the procedure well without apparent complication. ANGIOGRAPHIC FINDINGS: SELECTIVE LEFT VERTEBRAL ARTERY CATHETERIZATION AND ANGIOGRAPHY: Injection of the proximal left subclavian artery demonstrated a normal appearance of the left vertebral artery origin. 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 This was viewed as an incidental finding and of no clinical significance. The intracranial circulation was opacified via a left vertebral artery injection that demonstrated no aneurysm or vascular malformation. There was no significant stenosis or large-vessel occlusion. There were no changes of vasculitis or vasospasm. SELECTIVE RIGHT COMMON CAROTID ARTERY CATHETERIZATION AND ANGIOGRAPHY: The cervical portions of the right carotid vasculature demonstrated mild atherosclerotic plaque formation at the carotid bifurcation, but resulted in no appreciable stenosis utilizing NASCET criteria. Incidental note was made of uart-fq-pntgbaxz changes of fibromuscular dysplasia that involved the afs-sb-gbyiol cervical portions of the right internal carotid artery without evidence of dissection or complicating feature. The intracranial circulation was opacified via a right common carotid injection that demonstrated no aneurysm or vascular malformation. There was no significant stenosis or large-vessel occlusion. There were no changes of vasculitis or vasospasm. The dural venous sinuses were patent. SELECTIVE LEFT COMMON CAROTID ARTERY CATHETERIZATION AND ANGIOGRAPHY: The cervical portions of the left carotid vasculature demonstrated advanced, atherosclerotic plaque formation at the carotid bifurcation that extended into the internal carotid artery. Lesion length was approximately 20 mm. The luminal diameter measured 1.8 mm at the area of maximal stenosis. The distal reference normal vessel measured 6.5 mm. This corresponded to a 72% stenosis utilizing NASCET criteria. No tandem cervical lesions were identified. The intracranial circulation was opacified via a left common carotid injection that demonstrated no aneurysm or vascular malformation. There was no significant stenosis or large-vessel occlusion. There were no changes of vasculitis or vasospasm. 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 FINAL IMPRESSIONS: 1. Advanced, atherosclerotic plaque formation at the left carotid bifurcation with a focal area of high-grade (72%) stenosis utilizing NASCET criteria with an associated sizable area of ulceration. No tandem cervical or intracranial lesions were identified. 2. Fvlw-zd-wqmijomf changes of fibromuscular dysplasia that involved the uvz-hy-chjjiw cervical portions of the right internal carotid artery, but there was only mild atherosclerotic plaque formation at the carotid bifurcation without appreciable stenosis. William Carrillo MD* CG/rxjaw Voice Rec ID #[id number] Original Voice Rec ID #[id number] Doc ID #[id number] Rev. #0 cc: William Carrillo MD* Roly Gilbert M.D.* Gonsalo Escalera MD* <START HEADER> [address] [address] PROCEDURE NOTE PATIENT NAME: BERNICE NAVARRETE ROOM NUMBER: [id number] VISIT NUMBER: [id number] DATE OF : 1945 <END FOOTER> DO NOT TEXT EDIT THIS LINE :[id number]: Authenticated by WILLIAM CARRILLO MD On 12/29/2014 10:31:45 AM documented in this encounter Plan of Treatment Not on file documented as of this encounter Procedures Procedure Name Priority Date/Time Associated Diagnosis Comments CBC AND DIFFERENTIAL Routine 12/26/2014 7:41 AM EDT ALT Routine 12/26/2014 7:41 AM EDT AST Routine 12/26/2014 7:41 AM EDT HEMOGLOBIN A1C Routine 12/26/2014 7:41 AM EDT CK Routine 12/26/2014 7:41 AM EDT LIPID PANEL Routine 12/26/2014 7:41 AM EDT BASIC METABOLIC PANEL Routine 12/26/2014 7:41 AM EDT CONVERTED (HISTORICAL) CARDIOVASCULAR STUDIES Routine 12/26/2014 7:04 AM EDT SCANNED - CARDIOLOGY 12/26/2014 documented in this encounter Results * (ABNORMAL) AST (12/26/2014 7:41 AM EDT) AST (SGOT) 60(H) 0 - 33 Units/L [facility] Blood specimen (specimen) 12/26/2014 7:41 AM EDT [facility] - 12/29/2014 4:43 PM EDT Specimen Type: Blood us William Carrillo MD LAB BLOOD ORDERABLES Final Res ult Performing Organization Address [facility] Co de Phone Number [facility] [address] [place] [address], * (ABNORMAL) ALT (12/26/2014 7:41 AM EDT) Pathologist [facility] ALT (SGPT) 48(H) 7 - 40 Units/L [facility] Blood specimen (specimen) 12/26/2014 7:41 AM EDT [facility] - 12/29/2014 4:43 PM EDT Specimen Type: Blood William Carrillo MD LAB BLOOD ORDERABLES Final Res ult Performing Organization Address [facility] Co de Phone Number [facility] [address] [place] [address], * (ABNORMAL) Lipid panel (12/26/2014 7:41 AM EDT) Pathologist [facility] Total Cholesterol 235(H) 0 - 200 mg/dL [facility] Comment: DF by IF @ 12/29/2014 16:43 ?? Cholesterol Reference Ranges: Desirable: ? less than 200 mg/dL Borderline: ?200-239 mg/dL High: ?greater than 239 mg/dL Triglycerides 376(H) 0 - 150 mg/dL [facility] Comment: DF by IF @ 12/29/2014 16:43 Triglyceride Reference Ranges: Normal ? less than 150 mg/dL Borderline ?150-199 mg/dL High ? 200-499 mg/dL Very High ? greater than 499 mg/dL HDL Cholesterol 29(L) 40 - 60 mg/dL [facility] Comment: DF by IF @ 12/29/2014 16:43 HDL Cholesterol Reference Ranges: Low ? less than 40 mg/dL High ?greater than 59 mg/dL LDL Cholesterol 111 0 - 130 mg/dL [facility] Comment: US by IF @ 12/29/2014 16:43 LDL Cholesterol Reference Ranges: Optimal ?less than 100 mg/dL Near Optimal ? 100-129 mg/dL Borderline ?130-159 mg/dL High ? 160-189 mg/dL Very High ? greater than 189 mg/dL Blood specimen (specimen) 12/26/2014 7:41 AM EDT [facility] - 12/29/2014 4:43 PM EDT Specimen Type: Blood William Carrillo MD LAB BLOOD ORDERABLES Final Res ult Performing Organization Address [facility] de Phone Number [facility] [address] [place] [address], [place] [phone] * (ABNORMAL) CK (12/26/2014 7:41 AM EDT) [facility] Creatine Kinase 241(H) 26 - 174 Units/L [facility] Blood specimen (specimen) 12/26/2014 7:41 AM EDT [facility] - 12/29/2014 4:43 PM EDT Specimen Type: Blood us William Carrillo MD LAB BLOOD ORDERABLES Final Res ult Performing Organization Address [facility] Co de Phone Number [facility] [address] [place] [address], [place] [phone] * (ABNORMAL) Basic metabolic panel (12/26/2014 7:41 AM EDT) Glucose 106(H) 70 - 100 mg/dL [facility] BUN 27(H) 9 - 23 mg/dL [facility] Creatinine 1.2 0.6 - 1.3 mg/dL [facility] Sodium 138 132 - 146 mmol/L [facility] Potassium 3.7 3.5 - 5.5 mmol/L [facility] Chloride 99 99 - 109 mmol/L [facility] CO2 29 20 - 31 mmol/L [facility] Calcium 9.4 8.7 - 10.4 mg/dL [facility] eGFR Unable to Calculate ml/min/1. 732 [facility] Comment: DF by IF @ 12/26/2014 08:05 ?? National Kidney [employer] Guidelines ?Stage ? Description ?GFR ?1 ?Normal or High ? 90+ ?2 ?Mild decrease ? 60-89 ?3 ?Moderate decrease ?30-59 ?4 ?Severe decrease ?15-29 ?5 ?Kidney failure ?<15 Anion Gap 10 3 - 11 mmol/L [facility] Blood specimen (specimen) 12/26/2014 7:41 AM EDT Narrative [facility] - 12/26/2014 8:05 AM EDT Specimen Type: Blood us William Carrillo MD LAB BLOOD ORDERABLES Final Res ult [facility] [address] [place] [address], * (ABNORMAL) CBC and Differential (12/26/2014 7:41 AM EDT) WBC 3.79 3.50 - 10.80 K/[facility] RBC 3.90 3.89 - 5.14 /[facility] Hemoglobin 11.7 11.5 - 15.5 g/dL [facility] Hematocrit 35.0 34.5 - 44.0 % [facility] MCV 89.7 80.0 - 99.0 fL [facility] MCH 30.0 27.0 - 31.0 pg [facility] MCHC 33.4 32.0 - 36.0 g/dL [facility] RDW-CV 13.9 11.3 - 14.5 % [facility] Platelets 146(L) 150 - 450 K/[facility] Neutrophils Absolute 1.31(L) 1.50 - 8.30 [facility] Lymphocytes Absolute 1.82 0.60 - 4.80 [facility] Monocytes Absolute 0.27 0.00 - 1.00 [facility] Eosinophils Absolute 0.35(H) 0.10 - 0.30 [facility] Basophils Absolute 0.03 0.00 - 0.20 [facility] nRBC 0.0 [facility] Neutrophil Rel % 34.6(L) 41.0 - 71.0 % [facility] Lymphocyte Rel % 48.0(H) 24.0 - 44.0 % [facility] Monocyte Rel % 7.1 0.0 - 12.0 % [facility] Eosinophil Rel % 9.2(H) 0.0 - 3.0 % [facility] Basophil Rel % 0.8 0.0 - 1.0 % [facility] Immature Granulocyte Rel % 0.3 0.0 - 0.6 % [facility] Blood specimen (specimen) 12/26/2014 7:41 AM EDT [facility] - 12/26/2014 7:53 AM EDT Specimen Type: Blood William Carrillo MD LAB BLOOD ORDERABLES Final Res ult Performing Organization Address [facility] [place] [address], * Hemoglobin A1c (12/26/2014 7:41 AM EDT) [facility] Hemoglobin A1C 5.7 4.00 - 6.00 % [facility] Comment: DF by IF @ 12/26/2014 14:09 The [place] [employer] recommends maintenance of Hemoglobin A1C at 7.0% or lower. Goals for Hemoglobin A1C reduction may need to be modified if hypoglycemia is a problem. Mean Bld Glu Estim. 111 mg/dL [facility] Blood specimen (specimen) 12/26/2014 7:41 AM EDT [facility] - 12/26/2014 2:09 PM EDT Specimen Type: Blood us William Carrillo MD LAB BLOOD ORDERABLES Final Res ult Performing Organization Address [facility] [place] [address], * CONVERTED (HISTORICAL) CARDIOVASCULAR STUDIES (12/26/2014 7:04 AM EDT) Anatomical Region Laterality Modality Other 12/26/2014 7:04 AM EDT Narrative 12/26/2014 7:04 AM EDT Patient: ?ROSALBA, BERNICE ?? Med Rec#: ? [id number] ?: ?1945 ? Date: ? 12/26/2014 ?Age: ?69y ? Height: ? 160.02 cm / 63.0 in Weight: ? 81.65 kg / 180.0 lbs Sex: ?F ? Room#: ?2519 ? Loc: ?[facility] Instrument Technician Apprentice: ??Lisa Martin [facility] Referring: ?William Carrillo MD Reading: ?Ernie Whalen MD Primary: ?Roly Gilbert Procedure Codes: 36651 Study Quality: ? Carotid Duplex (Carotid artery bruit 785.9 ... Carotid occlusion/stenosis w/o infarct 433.10 ) History History of hypertension. ?? Previously smoked unknown packs/day. ?? Crest Study ?? Family history of CAD. ?? Findings There is intimal thickening in the right common carotid artery. ??There is intimal thickening in the left common carotid artery. ??The right common carotid artery contained a mild amount of focal ??and ??smooth plaque, homogeneous in consistency. ?The right bifurcation contained a mild amount of focal plaque, homogeneous in consistency. ? The right vertebral artery was patent with antegrade flow. ??The left common carotid artery contained a mild amount of focal ??and ??smooth plaque, homogeneous in consistency. ?The left bifurcation contained a moderate amount of ??ulcerative plaque, heterogeneous in consistency. ?The left internal carotid artery contained a moderate amount of plaque. ?The left vertebral artery was patent with antegrade flow. ??Bilateral distal ICAs are tortuous. Narrowed flow Left mid ICA. ?? There is no evidence of stenosis of the right common carotid artery. ?? There is no hemodynamically significant stenosis (0-49%)in the right internal carotid artery. ?? The right vertebral artery is patent with antegrade flow. ?? There is no evidence of stenosis in the left common carotid artery. ?? There is a hemodynamically significant stenosis Greater Than 70% but less than near occlusion in the left internal carotid artery. ?? The left vertebral artery is patent with antegrade flow. ?? Measurements Right Carotid PSV Name ? Value ??Units ? PCCA ? 92.3 ?? cm/sec ?? MCCA ? 76.6 ?? cm/sec ?? DCCA ? 56 ? cm/sec ?? PICA ? 78.6 ?? cm/sec ?? SERGE ? 109 ?cm/sec ?? DICA ? 155 ?cm/sec ?? PECA ? 62.9 ?? cm/sec ?? Vertebral ??83.5 ?? cm/sec ?? PSCA ? 244 ?cm/sec ?? Right Carotid EDV Name ? Value ??Units ? PCCA ? 23.6 ?? cm/sec ?? MCCA ? 19.6 ?? cm/sec ?? DCCA ? 19.6 ?? cm/sec ?? PICA ? 16.7 ?? cm/sec ?? SERGE ? 26.5 ?? cm/sec ?? DICA ? 43.2 ?? cm/sec ?? Vertebral ??12.8 ?? cm/sec ?? Left Carotid PSV Name ? Value ??Units ? PCCA ? 78.6 ?? cm/sec ?? MCCA ? 71.7 ?? cm/sec ?? DCCA ? 64.8 ?? cm/sec ?? PICA ? 85.4 ?? cm/sec ?? SERGE ? 298 ?cm/sec ?? DICA ? 93.2 ?? cm/sec ?? PECA ? 59.9 ?? cm/sec ?? Vertebral ??56.1 ?? cm/sec ?? PSCA ? 152 ?cm/sec ?? Left Carotid EDV Name ? Value ??Units ? PCCA ? 18.7 ?? cm/sec ?? MCCA ? 18.7 ?? cm/sec ?? DCCA ? 15.7 ?? cm/sec ?? PICA ? 25.5 ?? cm/sec ?? SERGE ? 108 ?cm/sec ?? DICA ? 32.6 ?? cm/sec ?? Vertebral ??22.4 ?? cm/sec ?? Blood Pressures and Ratios Name ? Value ??Units ? R Systoli ??124 ?mmHg ? R Diastol ??82 ? mmHg ? R ICA/CCA ??1.4 ?ratio ? L ICA/CCA ??4.2 ?ratio ? Procedure Note Interface, See Report - 03/25/2016 Patient: BERNICE NAVARRETE [facility] Rec#: [id number] : 1945 Date: 12/26/2014 Age: 69y Height: 160.02 cm / 63.0 in Weight: 81.65 kg / 180.0 lbs Sex: F Room#: 2519 Loc: [facility] Instrument Technician Apprentice: Lisa Martin [facility] Referring: William Carrillo MD Reading: Ernie Whalen MD Primary: Roly Gilbert Procedure Codes: 27314 Study Quality: Carotid Duplex (Carotid artery bruit 785.9 ... Carotid occlusion/stenosis w/o infarct 433.10 ) History History of hypertension. Previously smoked unknown packs/day. Crest Study Family history of CAD. Findings There is intimal thickening in the right common carotid artery. There is intimal thickening in the left common carotid artery. The right common carotid artery contained a mild amount of focal and smooth plaque, homogeneous in consistency. The right bifurcation contained a mild amount of focal plaque, homogeneous in consistency. The right vertebral artery was patent with antegrade flow. The left common carotid artery contained a mild amount of focal and smooth plaque, homogeneous in consistency. The left bifurcation contained a moderate amount of ulcerative plaque, heterogeneous in consistency. The left internal carotid artery contained a moderate amount of plaque. The left vertebral artery was patent with antegrade flow. Bilateral distal ICAs are tortuous. Narrowed flow Left mid ICA. There is no evidence of stenosis of the right common carotid artery. There is no hemodynamically significant stenosis (0-49%)in the right internal carotid artery. The right vertebral artery is patent with antegrade flow. There is no evidence of stenosis in the left common carotid artery. There is a hemodynamically significant stenosis Greater Than 70% but less than near occlusion in the left internal carotid artery. The left vertebral artery is patent with antegrade flow. Measurements Right Carotid PSV Name Value Units PCCA 92.3 cm/sec MCCA 76.6 cm/sec DCCA 56 cm/sec PICA 78.6 cm/sec SERGE 109 cm/sec DICA 155 cm/sec PECA 62.9 cm/sec Vertebral 83.5 cm/sec PSCA 244 cm/sec Right Carotid EDV Name Value Units PCCA 23.6 cm/sec MCCA 19.6 cm/sec DCCA 19.6 cm/sec PICA 16.7 cm/sec SERGE 26.5 cm/sec DICA 43.2 cm/sec Vertebral 12.8 cm/sec Left Carotid PSV Name Value Units PCCA 78.6 cm/sec MCCA 71.7 cm/sec DCCA 64.8 cm/sec PICA 85.4 cm/sec SERGE 298 cm/sec DICA 93.2 cm/sec PECA 59.9 cm/sec Vertebral 56.1 cm/sec PSCA 152 cm/sec Left Carotid EDV Name Value Units PCCA 18.7 cm/sec MCCA 18.7 cm/sec DCCA 15.7 cm/sec PICA 25.5 cm/sec SERGE 108 cm/sec DICA 32.6 cm/sec Vertebral 22.4 cm/sec Blood Pressures and Ratios Name Value Units R Systoli 124 mmHg R Diastol 82 mmHg R ICA/CCA 1.4 ratio L ICA/CCA 4.2 ratio us See Report Interface CV CARDIAC SERVICES ORDERAB LES Final Result * SCANNED - CARDIOLOGY (12/26/2014) Anatomical Region Laterality Modality Other us [place] [facility] [employer] CV CARDIAC SERVICES ORDERABLE S Final Result documented in this encounter Visit Diagnoses Not on filedocumented in this encounter
--- NOTE | 2024-08-28 18:19 | PC.NURSE ---
PT HAS DONE WELL TODAY. SHE HAS BEEN UP IN THE CHAIR MOST OF THE DAY. SHE HAS BEEN A TWO ASSIST WHEN GETTING UP TO THE BEDSIDE COMMODE. VSS. SHE HAS C/O A HEADACHE TODAY. MEDICATED PER DEC.
[2024-08-28] MEDS: PANTOPRAZOLE 40MG TABLET 40 MG PO (20:29)
[2024-08-28] MEDS: ATORVASTATIN 20MG TABLET 20 MG PO (20:29)
[2024-08-28] MEDS: SERTRALINE 100MG TABLET 100 MG PO (20:29)
[2024-08-28] MEDS: TRAZODONE 50MG TABLET 50 MG PO (20:29)
--- NOTE | 2024-08-28 20:33 | CA_ITS ---
APPROVED REPORT EXAM: Comprehensive 2D, Doppler, and color-flow Echocardiogram Shale Planer Operator: Trinity Quiroz CRT Ht: 5 ft 5 in Wt: 168lbs BSA: 1.84 BP: 120/64 mmHg Indications: Congestive Heart Failure?, CAD, KRISTINA, UTI, Stents, smoker M-Mode Dimensions RVDd 2.05 cm (0.9-2.6) LA Diam 3.21 cm (1.9-4.0) LVDd 5.90 cm (3.5-5.7) LVDs 4.49 cm (3.5-5.7) IVSd 1.26 cm (0.6-1.1) PWd 1.14 cm (0.6-1.1) EF (Teich) 46.90% FS 23.90% EDV (Teich) 173.20 mL TAPSE 1.46 (<1.7) ESV (Teich) 92.00 mL LV Diastology E Decel Time 383 (160-240 msec) E/A Ratio 0.60 MED A' 13.50 cm/s LAT A' 12.60 cm/s Aortic Valve AO Peak GR. 9.60 mmHg Mitral Valve MV A Velocity 121.0 (40-130 cm/s) E/A Ratio 0.60 Pulmonary Valve PV Peak Velocity 87.0 (50-150 cm/s) Tricuspid Valve TR P. Velocity 161.00 cm/s RAP Estimate 10.00 mmHg RVSP 20.40 mmHg Left Ventricle The left ventricle is normal size. The left ventricular systolic function is normal. The left ventricular ejection fraction is within the normal range. There is increased LV wall thickness. There is normal LV segmental wall motion. Transmitral Doppler flow pattern suggests impaired LV relaxation. LVEF is 60%. Right Ventricle The right ventricle is normal size. The right ventricular systolic function is normal. Atria The left atrium size is normal. The right atrium size is normal. There is no Doppler evidence of interatrial shunt. Aortic Valve The aortic valve is mildly thickened. There is no aortic valvular stenosis. No aortic regurgitation is present. Mitral Valve The mitral valve leaflets are mildly thickened. No evidence of mitral valve stenosis. Trace mitral regurgitation. Tricuspid Valve The tricuspid valve leaflets are thin and pliable. Trace tricuspid regurgitation. There is insufficient TR jet to estimate RVSP. Pulmonic Valve The pulmonary valve is normal in structure. Trace pulmonic regurgitation. Great Vessels The aortic root is normal in size. The ascending aorta is not well-visualized. IVC is normal in size and collapses >50% with inspiration. Pericardium Small sized, heterogeneous, anterior pericardial effusion is present. The largest pocket measures 0.3 cm in diastole. No echo indications of tamponade. Conclusion Normal biventricular systolic function. No significant valvular stenosis or regurgitation. Small sized, heterogeneous, anterior pericardial effusion is present. The largest pocket measures 0.3 cm in diastole. No echo indications of tamponade. Electronically signed by : Lorna Edwards MD 08/28/2024 09:15:41
[2024-08-29] VITALS (25 sets, daily range): BP systolic 105–151; BP diastolic 48–87; PULSE 60–85; RESP 16–20; TEMP 36.5–37.6; O2SAT 90–98; BMI 28.4
--- NOTE | 2024-08-29 00:21 | PC.NURSE ---
Addendum entered by Georgette Melvin RN 08/29/24 01:13: Patient's temperature was rechecked; it was 99.7. Patient refused an oscillating fan at this time, and she wanted to keep her blankets. Room temperature was decreased from 74 to 71. Patient verbalized that the Tylenol did relieve a headache. At this time, the patient is resting in bed. Original Note: Patient weaned from 2.5 L to 1.5 L of oxygen via nasal cannula at this time; oxygen saturations have remained at 99% to 100% this shift. Patient's temperature was elevated at midnight; it was 100.0. Tylenol will be administered per DEC. Patient is resting comfortably in bed at this time with no further complaints.
[2024-08-29] MEDS: ACETAMINOPHEN 325MG TAB 650 MG PO (00:30)
--- NOTE | 2024-08-29 04:23 | PC.NURSE ---
Patient is alert and oriented; she was noticed to be slightly hard of hearing. Patient was observed to have eyes closed, respirations even and unlabored on oxygen via nasal cannula, and no apparent distress throughout the night. Her oxygen flow has been weaned down to 1.5 L this shift; she has tolerated this well. She was given her scheduled bedtime medications per DEC. A purewick has remained in place this shift. Scattered abrasions were noted on the patient's extremities. The patient has complained of generalized soreness, especially in her left upper extremity. She also complained once of a headache this shift that was relieved by Tylenol administration (see prior note). Patient's temperature also decreased to baseline after receiving Tylenol this shift (see prior note). Redness and skin tearing was noted on her backside. Upon auscultation, patient's lung sounds were diminished, S1/S2 heart sounds could be heard, and bowel sounds were active. She has remained NPO since midnight. At this time, the patient does not have any further complaints. She is currently resting in bed. No acute changes noted. Bed alarm on. Call light within reach.
--- NOTE | 2024-08-29 05:25 | PC.NURSE ---
Addendum entered by Georgette Melvin RN 08/29/24 05:55: After obtaining the bladder scanner from the ER, the patient was starting to void via purewick. Approximately 30 mL was measured in the cannister. Patient was bladder scanned at this time; 202 mL of residual urine was scanned. Upon palpation, patient's abdomen was non-tender but slightly firm to the touch. Patient states that her abdomen is tight all around. Original Note: At this time, patient has not voided for this shift. Patient is to be bladder scanned.
[2024-08-29 06:31] LABS: Basophils % 0.6 % (0.1-2.0); Eosinophils % 0.6 % (0.1-12.0); Hematocrit 31.3 % (37.0-47.0); Hemoglobin 10.3 g/dL (12.2-16.2); Lymphocytes # 1.3 K/mm3 (0.7-4.5); Lymphocytes % 18.7 % (10-50); Mean Corpuscular Hemoglobin 30.8 pg (27.0-31.2); Mean Corpuscular Volume 93.3 fl (81-99); Mean Platelet Volume 9.1 fl (7.4-10.4); Monocytes # 0.5 K/mm3 (0.1-1.0); Monocytes % 6.5 % (1.7-9.3); Neutrophils # 5.3 K/mm3 (1.8-7.8); Neutrophils % 73.6 % (37.0-80.0); Platelet Count 120 K/mm3 (142-424); Red Blood Count 3.36 M/mm3 (4.20-5.40); Red Cell Distribution Width 14.3 % (11.5-17.5); White Blood Count 7.2 K/mm3 (4.8-10.8)
[2024-08-29 06:39] LABS: Alanine Aminotransferase 15 U/L (12-78); Albumin Level 3.4 g/dl (3.5-5.0); Albumin/Globulin Ratio 1.3 (1.1-1.8); Alkaline Phosphatase 63 U/L (38-126); Anion Gap 9.1 mEq/L (5-15); Aspartate Amino Transferase 25 U/L (14-36); Bilirubin,Total 0.7 mg/dl (0.2-1.3); Blood Urea Nitrogen 31 mg/dl (7-17); Carbon Dioxide 30 mmol/L (22.0-30.0); Chloride 102 mmol/L (98-107); Creatinine Clearance Estimated 54 mL/min (50-200); Estimated Glomerular Filt Rate 53 ml/min (>60); GFR (African American) 64 ML/MIN (>60); Globulin 2.6 g/dL (1.3-3.2); Glucose 120 mg/dl (74-100); Potassium 4.1 mmoL/L (3.5-5.1); Sodium 137 mmol/L (136-145)
[2024-08-29] MEDS: PATIENT'S OWN HOME MEDICATION (Tiotropium-Olodaterol [Stiolto Respimat] 2.5-2.5 mcg/actuat 2 EACH IH (06:52)
--- NOTE | 2024-08-29 07:10 | IR_ITS ---
APPROVED REPORT Patient Location: Inpatient Appointment Manager: Dada Long, RT (R) PROCEDURES Left heart catheterization Left ventriculogram Selective coronary angiogram Catheter placed in the distal abdominal aorta with bilateral nonselective renal angiogram Informed consent was obtained prior to the procedure. COMPLICATIONS NONE Estimated Blood Loss: LESS THAN 10 ML TECHNIQUE One percent lidocaine used to anesthetize the right anterior aspect of the wrist. The right radial artery was accessed via the Seldinger technique. A 6 Malay sheath was placed in the right radial artery. 2.5 mg of Verapamil, 800 mcg of nitroglycerin, 1mg Lidocaine and 5000 U Heparin were given through the arterial sheath. The 6 Malay JL 3 catheter was also used to perform left heart catheterization, left ventriculogram and selective coronary angiogram. At the end of the procedure the sheath was removed good hemostasis was achieved using Traclet band, patient was transferred to the postop holding area in stable condition. ANGIOGRAPHIC RESULTS The left main artery Normal The left anterior descending artery Proximally normal with mid vessel 30% concentric stenosis The circumflex artery Large dominant normal The right coronary artery Nondominant normal The GLEZ ventriculogram reveals Normal 65% The left ventricular end-diastolic pressure 15 mmHg An infrarenal abdominal aortic aneurysm is identified which does involve both renal arteries There is a least moderate calcified stenosis in the proximal left renal artery There is a moderate calcified stenosis in the proximal right renal artery IMPRESSION Mild coronary artery disease Normal ejection fraction Borderline LVEDP Infrarenal abdominal aortic aneurysm Renal artery stenosis which is not creating blood pressure issues or changes in creatinine which suggest hemodynamic significance PLAN 1. Medical management for coronary disease and renal artery stenosis 2. Abdominal aortic ultrasound to better determine the size of the abdominal aortic aneurysm. Stenting the renal arteries would be ill-advised at this point especially given the aneurysm that does involve the suprarenal abdominal aorta and stent to the renal arteries would require stenting around the abdominal aortic aneurysm. Medical management is most warranted 3. Risk factor modification Electronically signed by : Francisco Al MD 08/29/2024 13:20:44
--- NOTE | 2024-08-29 08:19 | EXP.ACUTE.PN ---
Subjective *Date: 08/29/24 *Time: 08:19 Interval history: Patient is sleeping this am. Her daughter states she was up in the chair most of the day yesterday. She is still very weak. She is NPO for a heart cath today. Medical Exam Vital signs and Labs for Last 24 Hours: Vital Signs Temp Pulse Pulse Resp BP Pulse Ox O2 Del Method 08/29/24 08:00 98.4 F 65 17 125/62 95 Nasal Cannula 08/29/24 06:55 Nasal Cannula 08/29/24 05:00 Nasal Cannula 08/29/24 04:00 70 08/29/24 03:54 98.7 F 69 16 136/57 L 97 Nasal Cannula 08/29/24 03:00 Nasal Cannula 08/29/24 01:00 Nasal Cannula 08/29/24 01:00 99.7 F H Nasal Cannula 08/29/24 00:00 80 08/28/24 23:55 Nasal Cannula 08/28/24 23:50 100.0 F H 85 16 140/66 99 Nasal Cannula 08/28/24 23:00 Nasal Cannula 08/28/24 21:00 Nasal Cannula 08/28/24 20:00 80 18 100 Nasal Cannula 08/28/24 20:00 80 08/28/24 19:47 98.4 F 80 18 131/56 L 100 Nasal Cannula 08/28/24 18:45 Nasal Cannula 08/28/24 17:00 Nasal Cannula 08/28/24 16:00 80 08/28/24 16:00 97.8 F 78 18 134/75 99 Nasal Cannula 08/28/24 15:00 Nasal Cannula 08/28/24 13:00 Nasal Cannula 08/28/24 12:00 80 08/28/24 12:00 98 F 81 17 129/68 96 Nasal Cannula 08/28/24 11:00 Nasal Cannula 08/28/24 10:15 Nasal Cannula 08/28/24 09:00 Nasal Cannula O2 Flow Rate 08/29/24 08:00 1.5 08/29/24 06:55 1.5 08/29/24 05:00 1.5 08/29/24 04:00 08/29/24 03:54 1.5 08/29/24 03:00 1.5 08/29/24 01:00 1.5 08/29/24 01:00 1.5 08/29/24 00:00 08/28/24 23:55 2 08/28/24 23:50 2.5 08/28/24 23:00 2.5 08/28/24 21:00 2.5 08/28/24 20:00 2.5 08/28/24 20:00 08/28/24 19:47 2.5 08/28/24 18:45 08/28/24 17:00 2.5 08/28/24 16:00 08/28/24 16:00 2.5 08/28/24 15:00 08/28/24 13:00 08/28/24 12:00 08/28/24 12:00 2.5 08/28/24 11:00 08/28/24 10:15 2.5 08/28/24 09:00 2.5 Intake and Output 08/28/24 08/29/24 08/29/24 19:59 03:59 11:59 Intake Total 420 / 570 150 / 570 Output Total 575 / 605 30 / 605 Balance -155 / -35 150 / -35 -30 / -35 Intake: Intake, Oral Amount 420 / 570 150 / 570 Output: Output, Urine Amount 575 / 605 30 / 605 Other: Number of Unmeasured Voids 1 1 Number of Bowel Movements 1 Weight 170 lb 9 oz Patient Weight 08/29/24 11:59 Weight 170 lb 9 oz Laboratory Results - last 24 hr 08/27/24 14:40: Urine Color Yellow, Urine Appearance Cloudy, Urine pH 6.0, Ur Specific [place] 1.010, Urine Protein Trace, Urine Glucose (UA) Negative, Urine Ketones Negative, Urine Blood 1+ A, Urine Nitrate Positive, Urine Bilirubin Negative, Urine Urobilinogen 0.2, Ur Leukocyte Esterase 1+ A, Urine RBC 3-5, Urine WBC 3-5, Ur Squamous Epith Cells 3-5, Urine Bacteria 1+ 08/28/24 06:17: Triglycerides 253 H, Cholesterol 117 L, LDL Cholesterol Direct 32.12 L, VLDL Cholesterol 51 H, HDL Cholesterol 39 L, Cholesterol/HDL Ratio 3.0 08/29/24 06:18: WBC 7.2, RBC 3.36 L, Hgb 10.3 L, Hct 31.3 L, MCV 93.3, MCH 30.8, MCHC 33.0, RDW 14.3, Plt Count 120 L, MPV 9.1, Neut % (Auto) 73.6, Lymph % (Auto) 18.7, [place] % (Auto) 6.5, Eos % (Auto) 0.6, Baso % (Auto) 0.6, Neut # (Auto) 5.3, Lymph # (Auto) 1.3, [place] # (Auto) 0.5, Eos # (Auto) 0.0, Baso # (Auto) 0.0, Sodium 137, Potassium 4.1, Chloride 102, Carbon Dioxide 30, Anion Gap 9.1, BUN 31 H D, Creatinine 1.00 D, Estimated Creat Clear 54, Estimated GFR 53 L, Est GFR ( Amer) 64 D, Glucose 120 H, Calcium 9.0, Total Bilirubin 0.7, AST 25 D, ALT 15, Alkaline Phosphatase 63, Total Protein 6.0 L, Albumin 3.4 L, Globulin 2.6, Albumin/Globulin Ratio 1.3 I & O for Labs for Last 24 Hours: Intake & Output 08/26/24 08/27/24 08/28/24 08/29/24 11:59 11:59 11:59 11:59 Intake Total 990 / 990 570 / 570 Output Total 1075 / 1450 605 / 605 Balance -85 / -460 -35 / -35 Weight 168 lb 13.985 oz 170 lb 9 oz Microbiology Reports for the Last 24 Hours: Microbiology 08/27/24 14:40 Urine,Catheterized Urine Culture - Final Escherichia coli 08/27/24 13:02 Blood Blood Culture - Preliminary NO GROWTH AFTER 24 HOURS 08/27/24 13:04 Blood Blood Culture - Preliminary NO GROWTH AFTER 24 HOURS Constitutional: Present no acute distress Respiratory: Present CTA bilaterally Cardiac: Present Reg Rate and Rhythm GI: Present soft; Absent distention or tenderness Extremities: Present other (tender around left elbow and wrist with limited ROM); Absent edema Skin: Present ecchymosis (arms and legs) Neuro: Present alert, awake and oriented x 3 Assessment and Plan *Assessment and plan (1) Heart failure with preserved ejection fraction: Status: Acute Qualifiers: Heart failure chronicity: acute on chronic Qualified Code(s): I50.33 - Acute on chronic diastolic (congestive) heart failure Category: Medical Code(s): I50.30 - Unspecified diastolic (congestive) heart failure (2) Acute UTI: Status: Acute Category: Medical Code(s): N39.0 - Urinary tract infection, site not specified (3) Elevated CK: Status: Acute Category: Medical Code(s): R74.8 - Abnormal levels of other serum enzymes (4) Fall: Status: Acute Category: Medical Code(s): W19.XXXA - Unspecified fall, initial encounter (5) Rib fractures: Status: Acute Qualifiers: Encounter type: initial encounter Fracture type: closed Laterality: unspecified laterality Qualified Code(s): S22.49XA - Multiple fractures of ribs, unspecified side, initial encounter for closed fracture Category: Medical Code(s): S22.49XA - Multiple fractures of ribs, unspecified side, initial encounter for closed fracture (6) Weakness: Status: Acute Category: Medical Code(s): R53.1 - Weakness (7) Tobacco dependence syndrome: Status: Chronic Category: Medical Code(s): F17.200 - Nicotine dependence, unspecified, uncomplicated (8) HLD (hyperlipidemia): Status: Acute Qualifiers: Hyperlipidemia type: mixed hyperlipidemia Qualified Code(s): E78.2 - Mixed hyperlipidemia Category: Medical Code(s): E78.5 - Hyperlipidemia, unspecified (9) HTN (hypertension): Status: Acute Qualifiers: Hypertension type: primary hypertension Qualified Code(s): I10 - Essential (primary) hypertension Category: Medical Code(s): I10 - Essential (primary) hypertension (10) GERD (gastroesophageal reflux disease): Status: Acute Qualifiers: Esophagitis presence: esophagitis presence not specified Qualified Code(s): K21.9 - Gastro-esophageal reflux disease without esophagitis Category: Medical Code(s): K21.9 - Gastro-esophageal reflux disease without esophagitis (11) Polymyalgia rheumatica: Status: Acute Category: Medical Code(s): M35.3 - Polymyalgia rheumatica (12) Coronary artery disease: Problem Comment: MAY 2021-Successful stenting of proximal dominant right coronary severe disease reduced to 0% with 1 drug-eluting stent Status: Chronic Qualifiers: Coronary Disease-Associated Artery/Lesion type: [place] artery [place] vs. transplanted heart: [place] heart Associated angina: with other forms of angina Qualified Code(s): I25.118 - Atherosclerotic heart disease of [place] coronary artery with other forms of angina pectoris Category: Medical Code(s): I25.10 - Atherosclerotic heart disease of [place] coronary artery without angina pectoris (13) Chronic hypoxemic respiratory failure: Status: Acute Category: Medical Code(s): J96.11 - Chronic respiratory failure with hypoxia (14) COPD (chronic obstructive pulmonary disease): Status: Acute Qualifiers: COPD type: unspecified COPD Qualified Code(s): J44.9 - Chronic obstructive pulmonary disease, unspecified Category: Medical Code(s): J44.9 - Chronic obstructive pulmonary disease, unspecified Plan Echo showed: Normal biventricular systolic function. No significant valvular stenosis or regurgitation. Small sized, heterogeneous, anterior pericardial effusion is present. The largest pocket measures 0.3 cm in diastole. No echo indications of tamponade. X-rays are still pending. Patient is to be taken for a heart cath today. She will need rehab placement once stable to discharge.
[2024-08-29] MEDS: METOPROLOL SUCCINATE XL 25MG TABLET 12.5 MG PO ×2 (08:41→20:29)
[2024-08-29] MEDS: ENOXAPARIN 40MG/0.4ML SYRINGE 40 MG SUBCUT (08:42)
[2024-08-29] MEDS: ASPIRIN 81MG CHEWABLE TABLET 81 MG PO (08:42)
[2024-08-29] MEDS: IRBESARTAN 150MG TAB 150 MG PO (08:42)
[2024-08-29] MEDS: predniSONE 5MG TAB 5 MG PO (08:42)
[2024-08-29] MEDS: MAGNESIUM OXIDE 400MG TABLET 400 MG PO (08:42)
[2024-08-29] MEDS: PREGABALIN 25MG CAPSULE 75 MG PO (08:42)
[2024-08-29] MEDS: FUROSEMIDE 40MG/4ML VIAL 40 MG IV (08:43)
[2024-08-29 09:52] LABS: HCV Ab Non Reactive (Non Reactive)
--- NOTE | 2024-08-29 11:41 | PC.NURSE ---
pt TO SOFTWARE QUALITY ENGINEER BY SARA @[phone]
--- NOTE | 2024-08-29 11:48 | EXP.CARD.PN ---
Subjective Subjective Date: 08/29/24 Time: 09:45 Principal diagnosis: Elevated troponin, atypical angina, CAD Interval history: This is an 79-year-old white female presented to the emergency department after an unwitnessed fall at home. The patient was found lying on the kitchen floor with blood under her head and does not recall what happened. She denies having any chest pain or pressure. She denies having shortness of breath or edema but her daughter states that she has been extremely short of breath with exertion over the last month. It especially worsened within the last few days prior to admission. She states that even doing minimal exertion throughout her home causes her mother significant shortness of breath. She denies any fever, chills, nausea, vomiting, diarrhea, PND or orthopnea. She also states that she has been extremely fatigued and tired and does not have any energy to do anything. Exam Data for Last 24 hours Vital signs and Labs for Last 24 Hours: Temp Pulse Resp BP Pulse Ox O2 Del Method O2 Flow Rate 98.4 F 65 17 125/62 95 Nasal Cannula 1.5 08/29/24 08:00 08/29/24 08:00 08/29/24 08:00 08/29/24 08:00 08/29/24 08:00 08/29/24 11:00 08/29/24 11:00 Laboratory Results - last 24 hr 08/27/24 20:38: Hepatitis C Antibody Non reactive 08/29/24 06:18: WBC 7.2, RBC 3.36 L, Hgb 10.3 L, Hct 31.3 L, MCV 93.3, MCH 30.8, MCHC 33.0, RDW 14.3, Plt Count 120 L, MPV 9.1, Neut % (Auto) 73.6, Lymph % (Auto) 18.7, [place] % (Auto) 6.5, Eos % (Auto) 0.6, Baso % (Auto) 0.6, Neut # (Auto) 5.3, Lymph # (Auto) 1.3, [place] # (Auto) 0.5, Eos # (Auto) 0.0, Baso # (Auto) 0.0, Sodium 137, Potassium 4.1, Chloride 102, Carbon Dioxide 30, Anion Gap 9.1, BUN 31 H D, Creatinine 1.00 D, Estimated Creat Clear 54, Estimated GFR 53 L, Est GFR ( Amer) 64 D, Glucose 120 H, Calcium 9.0, Total Bilirubin 0.7, AST 25 D, ALT 15, Alkaline Phosphatase 63, Total Protein 6.0 L, Albumin 3.4 L, Globulin 2.6, Albumin/Globulin Ratio 1.3 I & O for Last 24 hours: Intake & Output 08/26/24 08/27/24 08/28/24 08/29/24 23:59 23:59 23:59 23:59 Intake Total 500 / 630 910 / 1060 250 / 250 Output Total 0 / 400 1650 / 1650 730 / 730 Balance 500 / 230 -740 / -590 -480 / -480 Weight 169 lb 1 oz 168 lb 13.985 oz 170 lb 9 oz Microbiology Reports for the Last 24 Hours: Microbiology 08/27/24 14:40 Urine,Catheterized Urine Culture - Final Escherichia coli 08/27/24 13:02 Blood Blood Culture - Preliminary NO GROWTH AFTER 24 HOURS 08/27/24 13:04 Blood Blood Culture - Preliminary NO GROWTH AFTER 24 HOURS Constitutional Constitutional: no acute distress and average body habitus *Routine HEENT Exam Head: Present normocephalic and atraumatic ENT: Present mucous membranes moist *Routine Neck Exam Neck: Present supple, full ROM and normal carotid upstroke; Absent JVD, carotid bruit or lymphadenopathy *Routine Respiratory Exam Respiratory: Present CTA bilaterally, normal respiratory effort, able to speak in complete sentences and symmetric chest movement *Routine Cardiovascular Exam Cardiovascular: Present RRR, Normal S1 and Normal S2; Absent murmur or gallop *Routine Abdominal Exam Abdominal: Present soft and normoactive bowel sounds; Absent tenderness, distended or organomegaly *Routine Extremities Exam Extremities: Present full ROM, pulses intact and normal capillary refill; Absent cyanosis, clubbing or edema *Routine Skin Exam Skin: Present intact and warm; Absent erythema *Routine Neurological Exam Neurological: Present alert, oriented X3 and CN II-XII intact; Absent sensory deficit or motor deficit Routine Psychiatric Exam Psychiatric: Present normal affect Progress Note: A&P Assessment and plan (1) Elevated troponin: Status: Acute (2) Atypical angina: Status: Acute (3) Heart failure with preserved ejection fraction: Status: Acute (4) SOB (shortness of breath) on exertion: Status: Acute (5) Coronary artery disease: Problem details: MAY 2021-Successful stenting of proximal dominant right coronary severe disease reduced to 0% with 1 drug-eluting stent Status: Chronic (6) Acute UTI: Status: Acute (7) Elevated CK: Status: Acute (8) Fall: Status: Acute (9) Rib fractures: Status: Acute (10) Weakness: Status: Acute (11) Tobacco dependence syndrome: Status: Chronic (12) HLD (hyperlipidemia): Status: Acute (13) HTN (hypertension): Status: Acute (14) GERD (gastroesophageal reflux disease): Status: Acute (15) Chronic hypoxemic respiratory failure: Status: Acute (16) COPD (chronic obstructive pulmonary disease): Status: Acute (17) Frequent falls: Status: Acute (18) Pericardial effusion: Status: Acute (19) Stenosis of carotid artery: Status: Acute Assessment and Plan Assessment and Plan for All Diagnoses:: Plan: 1. The patient was admitted to the hospital after a fall at home. She does have multiple rib fractures and a fracture to the right clavicle. Will defer this to the hospitalist. 2. The patient does have an elevated troponin consistent with a non-STEMI. She does have a history of coronary artery disease with a drug-eluting stent placed in 2020. She has not seen cardiology since 2021. 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 Will plan to proceed with left cardiac catheterization today to evaluate her coronary artery disease in the setting of atypical angina, elevated troponin consistent with non-STEMI, and a history of coronary artery disease. Continue aspirin. 3. The patient has been educated the risk and benefits of proceeding with left cardiac catheterization. The patient verbalized understanding and is agreeable in proceeding with the procedure. 4. The patient had a CTA of her abdomen and pelvis which shows mild renal artery stenosis on the right and moderate to severe renal artery stenosis on the left. At the time of her left cardiac catheterization we will also proceed with a renal angiogram due to to the renal artery stenosis in the moderate to severe range and her having high blood pressures throughout her hospitalization. 5. The patient has been educated the risk and benefits of proceeding with renal angiogram as well. Patient verbalized understanding and is agreeable in proceeding with this procedure as well. 6. The patient will remain n.p.o. in preparation for left cardiac catheterization and renal angiogram.. 7. Echocardiogram shows a normal ejection fraction with a small pericardial effusion. The patient also has an elevated BNP. She is having acute on chronic HFpEF. Continue IV Lasix at this time. 8. The patient's blood pressure is well-controlled today. Continue irbesartan and metoprolol. 9. Her LDL goal is less than 55. Her LDL is 32. She is on a statin. 10. The patient does have a history of left carotid artery stenting. CTA of the neck and head showed no significant carotid artery stenosis at this time. 11. Further recommendations will be made pending the patient's response to treatment and the results of her left cardiac catheterization and renal angiogram today. Thank you for the opportunity to help her to spend the care of this patient. All recommendations and orders are per Dr. Edwards. Addendum: [facility] shows: The left main artery Normal The left anterior descending artery Proximally normal with mid vessel 30% concentric stenosis The circumflex artery Large codominant normal The right coronary artery Large codominant and normal The GLEZ ventriculogram reveals Normal 65% The left ventricular end-diastolic pressure 15 mmHg An infrarenal abdominal aortic aneurysm is identified which does involve both renal arteries There is a least moderate calcified stenosis in the proximal left renal artery There is a moderate calcified stenosis in the proximal right renal artery IMPRESSION Mild coronary artery disease Normal ejection fraction Borderline LVEDP Infrarenal abdominal aortic aneurysm Renal artery stenosis which is not creating blood pressure issues or changes in creatinine which suggest hemodynamic significance PLAN 1. Medical management for coronary disease and renal artery stenosis 2. Abdominal aortic ultrasound to better determine the size of the abdominal aortic aneurysm. Stenting the renal arteries would be ill-advised at this point especially given the aneurysm that does involve the suprarenal abdominal aorta and stent to the renal arteries would require stenting around the abdominal aortic aneurysm. Medical management is most warranted 3. Risk factor modification Will obtain a AAA ultrasound. CTA of the abdomen earlier this week showed no aneurysm in the aorta. The patient can be discharged home from a cardiac standpoint when she is medically cleared from her primary care provider. She will need to follow-up in cardiology clinic in 1 to 2 weeks on an outpatient basis. The patient will need to be discharged on the following cardiac medications when she is stable for discharge: Aspirin 81 mg daily, Crestor 10 mg nightly, Lasix 40 mg p.o. daily, irbesartan 150 mg daily, metoprolol 12.5 mg p.o. twice daily, Protonix 40 mg daily.
[2024-08-29] MEDS: HEPARIN 1,000 UNITS/ML 10ML VIAL (CATH LAB) 10000 UNIT IV (12:09)
[2024-08-29] MEDS: diphenhydrAMINE 50MG/ML VIAL 50 MG IV (12:10)
[2024-08-29] MEDS: LIDOCAINE 1% 10ML MDV 20 ML IJ (12:10)
[2024-08-29] MEDS: 0.9 % SODIUM CHLORIDE 500 ML 25 ML IV (12:10)
[2024-08-29] MEDS: VERAPAMIL 2.5MG/ML 2ML VIAL 2.5 MG IV (12:10)
[2024-08-29] MEDS: NITROGLYCERIN 800MCG/8ML SYR (CATH LAB) 800 MCG IA (12:11)
[2024-08-29] MEDS: HEPARIN 1,000 UNITS/500ML NS (CATH LAB) 3000 UNIT IV (12:11)
[2024-08-29] MEDS: MIDAZOLAM HCL 1MG/ML 5ML VIAL 1 MG IV (12:31)
[2024-08-29] MEDS: FENTANYL 100MCG/2ML VIAL 25 MCG IV (12:32)
--- NOTE | 2024-08-29 13:21 | PC.NURSE ---
pt BACK TO FLOOR FROM WAREHOUSE ATTENDANT VIA STRETCHER @[phone]
[2024-08-29] MEDS: ERTAPENEM SODIUM 1 GM in 0.9 % SODIUM CHLORIDE 50 ML IV (13:37)
[2024-08-29 13:55] LABS: Blood Urea Nitrogen 30 mg/dl (7-17); Calcium 8.8 mg/dl (8.4-10.2); Carbon Dioxide 29 mmol/L (22.0-30.0); Chloride 102 mmol/L (98-107); Creatinine Clearance Estimated 54 mL/min (50-200); Estimated Glomerular Filt Rate 53 ml/min (>60); GFR (African American) 64 ML/MIN (>60); Glucose 123 mg/dl (74-100); Sodium 137 mmol/L (136-145)
--- NOTE | 2024-08-29 14:06 | US_ITS ---
PROCEDURE INFORMATION: Exam: US Limited Retroperitoneal, Aorta. Exam date and time: 08/29/2024 2:21 PM Age: 79 years old Clinical indication: Abnormal findings; Abnormal radiologic finding of the abdomen; Radiologic exam and body structure: Cathlab seen this; Additional info: Aaa TECHNIQUE: Imaging protocol: Real-time ultrasound of the retroperitoneum with image documentation. Exam focused on the aorta. COMPARISON: CT ABDOMEN PELVIS W CON 08/08/2024 8:46 PM FINDINGS: Limitations: Bowel-gas. Aorta: As visualized, no aneurysm. Common iliac arteries: As visualized, no aneurysm. IMPRESSION: Limitations secondary to bowel gas. No abdominal aortic aneurysm or proximal iliac artery aneurysm demonstrated.
[2024-08-29] MEDS: IOPAMIDOL-370 (76%);100ML BOTTLE 60 ML IV (14:28)
--- NOTE | 2024-08-29 16:18 | PC.NURSE ---
PT HAS DONE WELL THIS SHIFT. SHE TOLERATED THE HEART CATH WELL. THERE APPEARS TO BE SOME BRUISING UNDER THE RADIAL BAND BUT NO DEFUSE SWELLING. SHE IS TOLERATING 1L NASAL CANNULA WELL, WILL TRY TO GET HER TO ROOM AIR. RADIAL BAND HAS BEEN SLIGHTLY DIFFICULT TO TAKE OUT AIR. SHE HAD A SMALL AMOUNT OF BLEEDING BUT STOPPED WHEN AIR WAS ADDED TO THE RADIAL BAND. PULSES AND SKIN TONE ARE WNL. VSS.
[2024-08-29] MEDS: PANTOPRAZOLE 40MG TABLET 40 MG PO (20:29)
[2024-08-29] MEDS: ATORVASTATIN 20MG TABLET 20 MG PO (20:29)
[2024-08-29] MEDS: PREGABALIN 50MG CAPSULE 50 MG PO (20:29)
[2024-08-29] MEDS: SERTRALINE 100MG TABLET 100 MG PO (20:29)
[2024-08-29] MEDS: TRAZODONE 50MG TABLET 50 MG PO (20:29)
--- NOTE | 2024-08-29 23:57 | PC.NURSE ---
Radial band to right cath site was able to be removed. No drainage or further bleeding was noted at this time. Patient did not report any pain around her cath incision. No abnormal skin temperature changes around the site were noted. Tegaderm and gauze dressing was placed over the site.
[2024-08-30] VITALS (8 sets, daily range): BP systolic 113–157; BP diastolic 46–74; PULSE 60–80; RESP 15–18; TEMP 36.6–37.1; O2SAT 93–97; BMI 28.3
--- NOTE | 2024-08-30 04:28 | PC.NURSE ---
Patient is alert and oriented x4. Patient was up to chair earlier this shift (evening) watching TV and was very pleasant; patient reported at the time that she feels a whole lot better compared to yesterday. She continues to report soreness primarily on the left side of her body, especially in the left upper extremity. Scattered bruises are still noted on all of her extremities, as well as some redness on her backside. Patient had a heart cath procedure during the previous shift. Her right radial cath site has a tegaderm and gauze in place, no bleeding or drainage presented thus far. Post-angio assessment and vital signs were completed this shift. Patient's oxygen flow was increased from 1 L to 2 L at 19:10, and then weaned back down to 1.5 L around 23:00 this shift; patient's oxygen saturations have remained > 90% since. A purewick has remained in place for the patient while resting in bed; I emptied approximately 90 mL of urine from the canister this morning. Urine was noticed to be slightly cloudy, taylor, and with a slight odor. Upon auscultation, patient's lung sounds were clear but diminished, S1/S2 heart sounds could be heard, and her bowel sounds were active. She has been running normal sinus rhythm on telemetry. She has received her scheduled medications per DEC. At this time, the patient is resting supine in bed. She does not have any further complaints. No acute changes noted thus far. Bed alarm on. Call light within reach.
[2024-08-30 06:31] LABS: Basophils % 0.5 % (0.1-2.0); Eosinophils # 0.1 K/mm3 (0.0-0.4); Eosinophils % 1.5 % (0.1-12.0); Hematocrit 28.2 % (37.0-47.0); Hemoglobin 9.6 g/dL (12.2-16.2); Lymphocytes # 1.1 K/mm3 (0.7-4.5); Lymphocytes % 22.9 % (10-50); Mean Corpuscular HGB Conc 33.9 g/dL (31.8-35.4); Mean Corpuscular Hemoglobin 30.6 pg (27.0-31.2); Mean Corpuscular Volume 90.2 fl (81-99); Mean Platelet Volume 8.5 fl (7.4-10.4); Monocytes # 0.3 K/mm3 (0.1-1.0); Monocytes % 6.8 % (1.7-9.3); Neutrophils # 3.3 K/mm3 (1.8-7.8); Neutrophils % 68.3 % (37.0-80.0); Platelet Count 119 K/mm3 (142-424); Red Blood Count 3.13 M/mm3 (4.20-5.40); Red Cell Distribution Width 14.5 % (11.5-17.5); White Blood Count 4.8 K/mm3 (4.8-10.8)
[2024-08-30] MEDS: PATIENT'S OWN HOME MEDICATION (Tiotropium-Olodaterol [Stiolto Respimat] 2.5-2.5 mcg/actuat 2 EACH IH (06:31)
[2024-08-30 06:52] LABS: Alanine Aminotransferase 16 U/L (12-78); Albumin Level 3.3 g/dl (3.5-5.0); Albumin/Globulin Ratio 1.3 (1.1-1.8); Alkaline Phosphatase 65 U/L (38-126); Anion Gap 8.9 mEq/L (5-15); Aspartate Amino Transferase 27 U/L (14-36); Bilirubin,Total 0.6 mg/dl (0.2-1.3); Blood Urea Nitrogen 32 mg/dl (7-17); Calcium 8.7 mg/dl (8.4-10.2); Carbon Dioxide 28 mmol/L (22.0-30.0); Chloride 103 mmol/L (98-107); Creatinine Clearance Estimated 54 mL/min (50-200); Estimated Glomerular Filt Rate 60 ml/min (>60); GFR (African American) 73 ML/MIN (>60); Globulin 2.6 g/dL (1.3-3.2); Glucose 103 mg/dl (74-100); Potassium 3.9 mmoL/L (3.5-5.1); Sodium 136 mmol/L (136-145); Total Protein,Serum 5.9 g/dl (6.3-8.2)
--- NOTE | 2024-08-30 08:17 | EXP.ACUTE.PN ---
Subjective *Date: 08/30/24 *Time: 08:17 Interval history: Patient is feeling better this am. She does c/o some back pain but her arm seems to be feeling better. She is sitting up in the chair eating breakfast this am. She slept last night and has been able to eat. Medical Exam Vital signs and Labs for Last 24 Hours: Vital Signs Temp Pulse Pulse Resp BP Pulse Ox O2 Del Method 08/30/24 08:00 97.9 F 78 18 117/53 L 94 L Nasal Cannula 08/30/24 06:55 Nasal Cannula 08/30/24 05:00 Nasal Cannula 08/30/24 04:00 70 08/30/24 03:50 98.3 F 73 16 121/64 94 L Nasal Cannula 08/30/24 03:00 Nasal Cannula 08/30/24 01:00 Nasal Cannula 08/30/24 00:00 60 08/29/24 23:35 99.4 F 68 16 151/52 H 95 Nasal Cannula 08/29/24 23:00 Nasal Cannula 08/29/24 21:00 Nasal Cannula 08/29/24 20:15 67 18 124/87 94 L Nasal Cannula 08/29/24 20:00 70 08/29/24 20:00 85 18 93 L Nasal Cannula 08/29/24 19:15 97.7 F 65 20 131/50 L 93 L Nasal Cannula 08/29/24 18:58 Room Air 08/29/24 18:15 78 16 126/60 90 L Room Air 08/29/24 17:15 66 16 116/58 L 98 Nasal Cannula 08/29/24 17:00 Nasal Cannula 08/29/24 16:15 63 16 129/54 L 96 Nasal Cannula 08/29/24 16:00 60 08/29/24 15:45 63 16 118/65 97 Nasal Cannula 08/29/24 15:15 61 16 115/56 L 98 Nasal Cannula 08/29/24 14:45 65 16 121/60 96 Nasal Cannula 08/29/24 14:41 Nasal Cannula 08/29/24 14:15 62 16 122/62 97 Nasal Cannula 08/29/24 14:00 68 16 111/59 L 95 Nasal Cannula 08/29/24 13:45 65 16 119/55 L 97 Nasal Cannula 08/29/24 13:30 98.3 F 63 16 135/67 96 Nasal Cannula 08/29/24 13:15 61 16 105/48 L 96 Room Air 08/29/24 13:10 62 16 108/52 L 97 Room Air 08/29/24 13:04 98.4 F 64 64 18 116/57 L 96 Room Air 08/29/24 13:00 98.4 F 62 16 126/50 L 96 Room Air 08/29/24 11:33 70 08/29/24 11:00 Nasal Cannula 08/29/24 09:00 Nasal Cannula O2 Flow Rate 08/30/24 08:00 08/30/24 06:55 1.5 08/30/24 05:00 1.5 08/30/24 04:00 08/30/24 03:50 1.5 08/30/24 03:00 1.5 08/30/24 01:00 1.5 08/30/24 00:00 08/29/24 23:35 1.5 08/29/24 23:00 1.5 08/29/24 21:00 2 08/29/24 20:15 2 08/29/24 20:00 08/29/24 20:00 2 08/29/24 19:15 2 08/29/24 18:58 08/29/24 18:15 08/29/24 17:15 08/29/24 17:00 1 08/29/24 16:15 1 08/29/24 16:00 08/29/24 15:45 1 08/29/24 15:15 08/29/24 14:45 1 08/29/24 14:41 1 08/29/24 14:15 1 08/29/24 14:00 1 08/29/24 13:45 1 08/29/24 13:30 1 08/29/24 13:15 08/29/24 13:10 08/29/24 13:04 08/29/24 13:00 08/29/24 11:33 08/29/24 11:00 1.5 08/29/24 09:00 1.5 Intake and Output 08/29/24 08/30/24 08/30/24 19:59 03:59 11:59 Intake Total 360 / 500 140 / 500 Output Total 0 / 90 90 / 90 Balance 360 / 410 140 / 410 -90 / 410 Intake: Intake, Oral Amount 360 / 500 140 / 500 Output: Output, Urine Amount Other: Number of Unmeasured Voids 1 Number of Urine Attends/Diapers 1 Number of Bowel Movements 1 Weight 170 lb 8.794 oz 170 lb 2 oz Patient Weight 08/30/24 11:59 Weight 170 lb 2 oz Laboratory Results - last 24 hr 08/27/24 20:38: Hepatitis C Antibody Non reactive 08/29/24 13:37: Sodium 137, Potassium 4.0, Chloride 102, Carbon Dioxide 29, Anion Gap 10.0, BUN 30 H, Creatinine 1.00, Estimated Creat Clear 54, Estimated GFR 53 L, Est GFR ( Amer) 64, Glucose 123 H, Calcium 8.8 08/30/24 05:22: WBC 4.8 D, RBC 3.13 L, Hgb 9.6 L, Hct 28.2 L, MCV 90.2, MCH 30.6, MCHC 33.9, RDW 14.5, Plt Count 119 L, MPV 8.5, Neut % (Auto) 68.3, Lymph % (Auto) 22.9, [place] % (Auto) 6.8, Eos % (Auto) 1.5, Baso % (Auto) 0.5, Neut # (Auto) 3.3, Lymph # (Auto) 1.1, [place] # (Auto) 0.3, Eos # (Auto) 0.1, Baso # (Auto) 0.0, Sodium 136, Potassium 3.9, Chloride 103, Carbon Dioxide 28, Anion Gap 8.9, BUN 32 H, Creatinine 0.90, Estimated Creat Clear 54, Estimated GFR 60, Est GFR ( Amer) 73, Glucose 103 H, Calcium 8.7, Total Bilirubin 0.6, AST 27, ALT 16, Alkaline Phosphatase 65, Total Protein 5.9 L, Albumin 3.3 L, Globulin 2.6, Albumin/Globulin Ratio 1.3 I & O for Labs for Last 24 Hours: Intake & Output 08/27/24 08/28/24 08/29/24 08/30/24 11:59 11:59 11:59 11:59 Intake Total 990 / 990 670 / 670 500 / 500 Output Total 1075 / 1450 1305 / 1305 Balance -85 / -460 -635 / -635 410 / 410 Weight 168 lb 13.985 oz 170 lb 9 oz 170 lb 2 oz Microbiology Reports for the Last 24 Hours: Microbiology 08/27/24 13:02 Blood Blood Culture - Preliminary NO GROWTH AFTER 48 HOURS 08/27/24 13:04 Blood Blood Culture - Preliminary NO GROWTH AFTER 48 HOURS 08/27/24 14:40 Urine,Catheterized Urine Culture - Final Escherichia coli Constitutional: Present no acute distress Respiratory: Present CTA bilaterally Cardiac: Present Reg Rate and Rhythm GI: Present soft; Absent distention or tenderness Extremities: Present other (better ROM of left arm); Absent edema Skin: Present ecchymosis (arms and legs) Neuro: Present alert, awake and oriented x 3 Assessment and Plan *Assessment and plan (1) Heart failure with preserved ejection fraction: Status: Acute Qualifiers: Heart failure chronicity: acute on chronic Qualified Code(s): I50.33 - Acute on chronic diastolic (congestive) heart failure Category: Medical Code(s): I50.30 - Unspecified diastolic (congestive) heart failure (2) Acute UTI: Status: Acute Category: Medical Code(s): N39.0 - Urinary tract infection, site not specified (3) Elevated CK: Status: Acute Category: Medical Code(s): R74.8 - Abnormal levels of other serum enzymes (4) Fall: Status: Acute Category: Medical Code(s): W19.XXXA - Unspecified fall, initial encounter (5) Rib fractures: Status: Acute Qualifiers: Encounter type: initial encounter Fracture type: closed Laterality: unspecified laterality Qualified Code(s): S22.49XA - Multiple fractures of ribs, unspecified side, initial encounter for closed fracture Category: Medical Code(s): S22.49XA - Multiple fractures of ribs, unspecified side, initial encounter for closed fracture (6) Weakness: Status: Acute Category: Medical Code(s): R53.1 - Weakness (7) Tobacco dependence syndrome: Status: Chronic Category: Medical Code(s): F17.200 - Nicotine dependence, unspecified, uncomplicated (8) HLD (hyperlipidemia): Status: Acute Qualifiers: Hyperlipidemia type: mixed hyperlipidemia Qualified Code(s): E78.2 - Mixed hyperlipidemia Category: Medical Code(s): E78.5 - Hyperlipidemia, unspecified (9) HTN (hypertension): Status: Acute Qualifiers: Hypertension type: primary hypertension Qualified Code(s): I10 - Essential (primary) hypertension Category: Medical Code(s): I10 - Essential (primary) hypertension (10) GERD (gastroesophageal reflux disease): Status: Acute Qualifiers: Esophagitis presence: esophagitis presence not specified Qualified Code(s): K21.9 - Gastro-esophageal reflux disease without esophagitis Category: Medical Code(s): K21.9 - Gastro-esophageal reflux disease without esophagitis (11) Polymyalgia rheumatica: Status: Acute Category: Medical Code(s): M35.3 - Polymyalgia rheumatica (12) Coronary artery disease: Problem Comment: MAY 2021-Successful stenting of proximal dominant right coronary severe disease reduced to 0% with 1 drug-eluting stent Status: Chronic Qualifiers: Coronary Disease-Associated Artery/Lesion type: [place] artery [place] vs. transplanted heart: [place] heart Associated angina: with other forms of angina Qualified Code(s): I25.118 - Atherosclerotic heart disease of [place] coronary artery with other forms of angina pectoris Category: Medical Code(s): I25.10 - Atherosclerotic heart disease of [place] coronary artery without angina pectoris (13) Chronic hypoxemic respiratory failure: Status: Acute Category: Medical Code(s): J96.11 - Chronic respiratory failure with hypoxia (14) COPD (chronic obstructive pulmonary disease): Status: Acute Qualifiers: COPD type: unspecified COPD Qualified Code(s): J44.9 - Chronic obstructive pulmonary disease, unspecified Category: Medical Code(s): J44.9 - Chronic obstructive pulmonary disease, unspecified Plan Heart cath showed the following: IMPRESSION Mild coronary artery disease Normal ejection fraction Borderline LVEDP Infrarenal abdominal aortic aneurysm Renal artery stenosis which is not creating blood pressure issues or changes in creatinine which suggest hemodynamic significance PLAN 1. Medical management for coronary disease and renal artery stenosis 2. Abdominal aortic ultrasound to better determine the size of the abdominal aortic aneurysm. Stenting the renal arteries would be ill-advised at this point especially given the aneurysm that does involve the suprarenal abdominal aorta and stent to the renal arteries would require stenting around the abdominal aortic aneurysm. Medical management is most warranted 3. Risk factor modification Ultrasound showed no AAA. She can likely be discharged for rehab. Care management is still working on placement.
[2024-08-30] MEDS: METOPROLOL SUCCINATE XL 25MG TABLET 12.5 MG PO ×2 (08:50→20:08)
[2024-08-30] MEDS: ASPIRIN 81MG CHEWABLE TABLET 81 MG PO (08:50)
[2024-08-30] MEDS: IRBESARTAN 150MG TAB 150 MG PO (08:51)
[2024-08-30] MEDS: predniSONE 5MG TAB 5 MG PO (08:51)
[2024-08-30] MEDS: MAGNESIUM OXIDE 400MG TABLET 400 MG PO (08:51)
[2024-08-30] MEDS: FUROSEMIDE 40 MG TABLET PO (08:51)
[2024-08-30] MEDS: PREGABALIN 50MG CAPSULE 50 MG PO ×2 (08:54→20:02)
[2024-08-30] MEDS: ENOXAPARIN 40MG/0.4ML SYRINGE 40 MG SUBCUT (09:04)
[2024-08-30] MEDS: ERTAPENEM SODIUM 1 GM in 0.9 % SODIUM CHLORIDE 50 ML IV (14:03)
[2024-08-30] MEDS: PANTOPRAZOLE 40MG TABLET 40 MG PO (20:02)
[2024-08-30] MEDS: SERTRALINE 100MG TABLET 100 MG PO (20:02)
[2024-08-30] MEDS: TRAZODONE 50MG TABLET 50 MG PO (20:02)
[2024-08-30] MEDS: ATORVASTATIN 20MG TABLET 20 MG PO (20:02)
[2024-08-31] VITALS (8 sets, daily range): BP systolic 110–188; BP diastolic 54–90; PULSE 50–86; RESP 14–18; TEMP 36.7–37.3; O2SAT 91–97; BMI 28.5
--- NOTE | 2024-08-31 05:57 | PC.NURSE ---
rounded on pt and pt had a small amount of blood running down the right side of her face. Pt picked a scab that was already there. Blood was cleaned and band-aid placed on area.
[2024-08-31 06:10] LABS: Basophils % 0.3 % (0.1-2.0); Eosinophils % 0.7 % (0.1-12.0); Hemoglobin 9.7 g/dL (12.2-16.2); Lymphocytes % 19.7 % (10-50); Mean Corpuscular HGB Conc 33.5 g/dL (31.8-35.4); Mean Corpuscular Hemoglobin 30.4 pg (27.0-31.2); Mean Corpuscular Volume 90.6 fl (81-99); Mean Platelet Volume 8.3 fl (7.4-10.4); Monocytes # 0.5 K/mm3 (0.1-1.0); Monocytes % 9.9 % (1.7-9.3); Neutrophils # 3.6 K/mm3 (1.8-7.8); Neutrophils % 69.4 % (37.0-80.0); Platelet Count 132 K/mm3 (142-424); Red Cell Distribution Width 14.1 % (11.5-17.5); White Blood Count 5.2 K/mm3 (4.8-10.8)
[2024-08-31 06:20] LABS: Alanine Aminotransferase 23 U/L (12-78); Albumin Level 3.4 g/dl (3.5-5.0); Albumin/Globulin Ratio 1.3 (1.1-1.8); Alkaline Phosphatase 63 U/L (38-126); Aspartate Amino Transferase 35 U/L (14-36); Bilirubin,Total 0.7 mg/dl (0.2-1.3); Blood Urea Nitrogen 27 mg/dl (7-17); Calcium 8.8 mg/dl (8.4-10.2); Carbon Dioxide 29 mmol/L (22.0-30.0); Chloride 100 mmol/L (98-107); Creatinine Clearance Estimated 54 mL/min (50-200); Estimated Glomerular Filt Rate 60 ml/min (>60); GFR (African American) 73 ML/MIN (>60); Globulin 2.7 g/dL (1.3-3.2); Glucose 126 mg/dl (74-100); Sodium 137 mmol/L (136-145); Total Protein,Serum 6.1 g/dl (6.3-8.2)
--- NOTE | 2024-08-31 06:41 | PC.NURSE ---
pt has had no complaints this shift. pt is on 1.5L NC and is tolerating well. pt slept most of the night. Pt reports slight amount of pain but does not want any medication for pain. Pt has had 400ml U/O this shift
[2024-08-31] MEDS: PATIENT'S OWN HOME MEDICATION (Tiotropium-Olodaterol [Stiolto Respimat] 2.5-2.5 mcg/actuat 2 EACH IH (08:45)
[2024-08-31] MEDS: ASPIRIN 81MG CHEWABLE TABLET 81 MG PO (09:04)
[2024-08-31] MEDS: ENOXAPARIN 40MG/0.4ML SYRINGE 40 MG SUBCUT (09:05)
[2024-08-31] MEDS: FUROSEMIDE 40 MG TABLET PO (09:05)
[2024-08-31] MEDS: MAGNESIUM OXIDE 400MG TABLET 400 MG PO (09:05)
[2024-08-31] MEDS: predniSONE 5MG TAB 5 MG PO (09:05)
[2024-08-31] MEDS: IRBESARTAN 150MG TAB 150 MG PO (09:05)
[2024-08-31] MEDS: ACETAMINOPHEN 325MG TAB 650 MG PO (09:16)
[2024-08-31] MEDS: METOPROLOL SUCCINATE XL 25MG TABLET 12.5 MG PO ×2 (09:16→22:01)
[2024-08-31] MEDS: PREGABALIN 50MG CAPSULE 50 MG PO ×2 (09:16→22:01)
--- NOTE | 2024-08-31 10:02 | P.PN_ITS ---
Subjective *Date: 09/01/24 *Time: 13:08 Interval history: She is clinically stable. [facility] has NOT approved acceptance for admission. From Cardiology: The patient can be discharged home from a cardiac standpoint when she is medically cleared from her primary care provider. She will need to follow-up in cardiology clinic in 1 to 2 weeks on an outpatient basis. The patient will need to be discharged on the following cardiac medications when she is stable for discharge: Aspirin 81 mg daily, Crestor 10 mg nightly, Lasix 40 mg p.o. daily, irbesartan 150 mg daily, metoprolol 12.5 mg p.o. twice daily, Protonix 40 mg daily. Medical Exam Vital signs and Labs for Last 24 Hours: Vital Signs Temp Pulse Pulse Resp BP Pulse Ox O2 Del Method 08/31/24 08:00 98.1 F 86 18 148/70 H 95 08/31/24 06:58 Nasal Cannula 08/31/24 05:00 Nasal Cannula 08/31/24 04:00 81 08/31/24 04:00 99.1 F 86 18 157/75 H 96 Room Air 08/31/24 03:00 Nasal Cannula 08/31/24 01:20 168/90 H 08/31/24 01:00 Nasal Cannula 08/31/24 00:00 78 08/31/24 00:00 98.1 F 82 16 188/84 H 97 Room Air 08/30/24 23:00 Nasal Cannula 08/30/24 21:00 Nasal Cannula 08/30/24 20:00 73 08/30/24 20:00 Nasal Cannula 08/30/24 19:47 98.3 F 72 17 157/74 H 97 Nasal Cannula 08/30/24 18:33 Nasal Cannula 08/30/24 17:00 Nasal Cannula 08/30/24 16:00 98.3 F 76 15 138/68 96 Room Air 08/30/24 16:00 70 08/30/24 15:00 Nasal Cannula 08/30/24 12:30 Nasal Cannula 08/30/24 12:00 70 08/30/24 12:00 98.8 F 73 16 113/46 L 93 L 08/30/24 11:00 Nasal Cannula O2 Flow Rate 08/31/24 08:00 08/31/24 06:58 08/31/24 05:00 1.5 08/31/24 04:00 08/31/24 04:00 08/31/24 03:00 1.5 08/31/24 01:20 08/31/24 01:00 1.5 08/31/24 00:00 08/31/24 00:00 08/30/24 23:00 1.5 08/30/24 21:00 1.5 08/30/24 20:00 08/30/24 20:00 1.5 08/30/24 19:47 2 08/30/24 18:33 1.5 08/30/24 17:00 1.5 08/30/24 16:00 08/30/24 16:00 08/30/24 15:00 1.5 08/30/24 12:30 1.5 08/30/24 12:00 08/30/24 12:00 08/30/24 11:00 1.5 Intake and Output 08/30/24 08/31/24 08/31/24 19:59 03:59 11:59 Intake Total 580 / 860 280 / 860 Output Total 0 / 600 600 / 600 Balance 580 / 260 -320 / 260 Intake: Intake, Oral Amount 580 / 860 280 / 860 Output: Output, Urine Amount 0 / 600 600 / 600 Other: Number of Unmeasured Voids 1 1 0 Weight 171 lb 2.056 oz Patient Weight 08/31/24 11:59 Weight 171 lb 2.056 oz Laboratory Results - last 24 hr 08/31/24 05:44: WBC 5.2, RBC 3.20 L, Hgb 9.7 L, Hct 29.0 L, MCV 90.6, MCH 30.4, MCHC 33.5, RDW 14.1, Plt Count 132 L, MPV 8.3, Neut % (Auto) 69.4, Lymph % (Auto) 19.7, [place] % (Auto) 9.9 H, Eos % (Auto) 0.7, Baso % (Auto) 0.3, Neut # (Auto) 3.6, Lymph # (Auto) 1.0, [place] # (Auto) 0.5, Eos # (Auto) 0.0, Baso # (Auto) 0.0, Sodium 137, Potassium 4.0, Chloride 100, Carbon Dioxide 29, Anion Gap 12.0, BUN 27 H, Creatinine 0.90, Estimated Creat Clear 54, Estimated GFR 60, Est GFR ( Amer) 73, Glucose 126 H, Calcium 8.8, Total Bilirubin 0.7, AST 35 D, ALT 23 D, Alkaline Phosphatase 63, Total Protein 6.1 L, Albumin 3.4 L, Globulin 2.7, Albumin/Globulin Ratio 1.3 I & O for Labs for Last 24 Hours: Intake & Output 08/28/24 08/29/24 08/30/24 08/31/24 11:59 11:59 11:59 11:59 Intake Total 990 / 990 670 / 670 740 / 740 860 / 860 Output Total 1075 / 1450 1305 / 1305 90 / 90 600 / 600 Balance -85 / -460 -635 / -635 650 / 650 260 / 260 Weight 168 lb 13.985 oz 170 lb 9 oz 170 lb 2 oz 171 lb 2.056 oz Head: Present normocephalic Eyes: Absent change in vision Neck: Present normal inspection Respiratory: Present CTA bilaterally; Absent respiratory distress Comment:: left rib cage tenderness. Cardiac: Present Reg Rate and Rhythm GI: Present soft; Absent tenderness Rectal (female): Present deferred (female): Present deferred Extremities: Present full ROM Skin: Present intact Neuro: Present alert, oriented x 3 and moves all extremities Assessment and Plan *Assessment and plan (1) Fall: Status: Acute Category: Medical Code(s): W19.XXXA - Unspecified fall, initial encounter (2) Rib fractures: Status: Acute Qualifiers: Encounter type: initial encounter Fracture type: closed Laterality: unspecified laterality Qualified Code(s): S22.49XA - Multiple fractures of ribs, unspecified side, initial encounter for closed fracture Category: Medical Code(s): S22.49XA - Multiple fractures of ribs, unspecified side, initial encounter for closed fracture (3) Elevated CK: Status: Acute Category: Medical Code(s): R74.8 - Abnormal levels of other serum enzymes (4) Weakness: Status: Acute Category: Medical Code(s): R53.1 - Weakness (5) Acute UTI: Status: Acute Category: Medical Code(s): N39.0 - Urinary tract infection, site not specified (6) E coli infection: Status: Acute Category: Medical Code(s): A49.8 - Other bacterial infections of unspecified site (7) Chronic hypoxemic respiratory failure: Status: Acute Category: Medical Code(s): J96.11 - Chronic respiratory failure with hypoxia (8) History of ASCVD (atherosclerotic cardiovascular disease): Status: Acute Category: Medical Code(s): Z86.79 - Personal history of other diseases of the circulatory system (9) Diastolic dysfunction: Status: Chronic Category: Medical Code(s): I51.89 - Other ill-defined heart diseases (10) Coronary artery disease: Problem Comment: MAY 2021-Successful stenting of proximal dominant right coronary severe disease reduced to 0% with 1 drug-eluting stent Status: Chronic Qualifiers: Coronary Disease-Associated Artery/Lesion type: [place] artery [place] vs. transplanted heart: [place] heart Associated angina: with other forms of angina Qualified Code(s): I25.118 - Atherosclerotic heart disease of [place] coronary artery with other forms of angina pectoris Category: Medical Code(s): I25.10 - Atherosclerotic heart disease of [place] coronary artery without angina pectoris (11) HTN (hypertension): Status: Acute Qualifiers: Hypertension type: primary hypertension Qualified Code(s): I10 - Essential (primary) hypertension Category: Medical Code(s): I10 - Essential (primary) hypertension (12) Chronic pain: Status: Chronic Qualifiers: Chronic pain type: chronic pain syndrome Qualified Code(s): G89.4 - Chronic pain syndrome Category: Medical Code(s): G89.29 - Other chronic pain (13) Lumbar spinal stenosis: Status: Chronic Qualifiers: Neurogenic claudication status: without neurogenic claudication Qualified Code(s): M48.061 - Spinal stenosis, lumbar region without neurogenic claudication Category: Medical Code(s): M48.061 - Spinal stenosis, lumbar region without neurogenic claudication (14) Pericardial effusion: Status: Acute Category: Medical Code(s): I31.39 - Other pericardial effusion (noninflammatory) Plan This note was generated 08/31 after the patient had been seen and evaluated. The computers went down prior to completion of the note. The note is completed and signed today 09/01.
[2024-08-31] MEDS: ERTAPENEM SODIUM 1 GM in 0.9 % SODIUM CHLORIDE 50 ML IV (12:30)
--- NOTE | 2024-08-31 13:13 | PC.NURSE ---
Contacted Sports Equipment Supervisor about consult on pt.
--- NOTE | 2024-08-31 16:07 | PC.NURSE ---
Pt has been drwsy majority of shift but is more alert this afternoon. She is currently sitting up watching TV. Has C/O generalized pain this shift. Medicated per dec. Has also C/O SOA this AM. Remains on 1.5L NC. Has ambulated to chair and BR via PT. Some difficulty noted. Family has visited today. Call light within reach. Safety measures in place.
--- NOTE | 2024-08-31 17:36 | DIET.NUTRFU ---
Addendum entered by Vanda Salazar RDN, SHANNA 09/01/24 22:30: Diet has been liberalized to regular. PO intake 75% after dier changed to regular at dinner. Will follow up with patient. Original Note: Nutrition Consult received for Taj Score. Pt PO intake showed improvement but has since declined with 0% intake at last two recorded meals. Pt is on cardiac diet. Will add ensure BID for patient to try and help supplement diet. Will speak to patient about supplements. Pt reports feeling better per MD progress note.
[2024-08-31] MEDS: PANTOPRAZOLE 40MG TABLET 40 MG PO (22:01)
[2024-08-31] MEDS: SERTRALINE 100MG TABLET 100 MG PO (22:01)
[2024-08-31] MEDS: TRAZODONE 50MG TABLET 50 MG PO (22:01)
[2024-08-31] MEDS: ATORVASTATIN 20MG TABLET 20 MG PO (22:01)
[2024-09-01] VITALS (7 sets, daily range): BP systolic 117–157; BP diastolic 52–83; PULSE 60–109; RESP 16–18; TEMP 36.5–37.1; O2SAT 94–98; BMI 27.5
[2024-09-01 07:06] LABS: Basophils % 0.3 % (0.1-2.0); Eosinophils # 0.1 K/mm3 (0.0-0.4); Eosinophils % 1.5 % (0.1-12.0); Hematocrit 27.8 % (37.0-47.0); Hemoglobin 9.4 g/dL (12.2-16.2); Lymphocytes # 1.1 K/mm3 (0.7-4.5); Lymphocytes % 32.4 % (10-50); Mean Corpuscular HGB Conc 33.8 g/dL (31.8-35.4); Mean Corpuscular Hemoglobin 30.8 pg (27.0-31.2); Mean Corpuscular Volume 91.2 fl (81-99); Mean Platelet Volume 8.6 fl (7.4-10.4); Monocytes # 0.2 K/mm3 (0.1-1.0); Monocytes % 6.7 % (1.7-9.3); Neutrophils # 2.1 K/mm3 (1.8-7.8); Neutrophils % 59.1 % (37.0-80.0); Platelet Count 121 K/mm3 (142-424); Red Blood Count 3.04 M/mm3 (4.20-5.40); Red Cell Distribution Width 14.5 % (11.5-17.5); White Blood Count 3.5 K/mm3 (4.8-10.8)
[2024-09-01 07:12] LABS: Albumin Level 3.4 g/dl (3.5-5.0); Chloride 100 mmol/L (98-107); Sodium 138 mmol/L (136-145)
[2024-09-01 07:13] LABS: Potassium 4.2 mmoL/L (3.5-5.1)
[2024-09-01 07:15] LABS: Alanine Aminotransferase 19 U/L (12-78); Albumin/Globulin Ratio 1.2 (1.1-1.8); Alkaline Phosphatase 56 U/L (38-126); Anion Gap 10.2 mEq/L (5-15); Aspartate Amino Transferase 33 U/L (14-36); Bilirubin,Total 0.5 mg/dl (0.2-1.3); Blood Urea Nitrogen 31 mg/dl (7-17); Carbon Dioxide 32 mmol/L (22.0-30.0); Creatinine Clearance Estimated 52 mL/min (50-200); Estimated Glomerular Filt Rate 53 ml/min (>60); GFR (African American) 64 ML/MIN (>60); Globulin 2.8 g/dL (1.3-3.2); Total Protein,Serum 6.2 g/dl (6.3-8.2)
[2024-09-01 07:16] LABS: Calcium 8.9 mg/dl (8.4-10.2); Glucose 110 mg/dl (74-100)
[2024-09-01] MEDS: ENOXAPARIN 40MG/0.4ML SYRINGE 40 MG SUBCUT (08:42)
[2024-09-01] MEDS: IRBESARTAN 150MG TAB 150 MG PO (08:42)
[2024-09-01] MEDS: ASPIRIN 81MG CHEWABLE TABLET 81 MG PO (08:42)
[2024-09-01] MEDS: FUROSEMIDE 40 MG TABLET PO (08:42)
[2024-09-01] MEDS: MAGNESIUM OXIDE 400MG TABLET 400 MG PO (08:42)
[2024-09-01] MEDS: METOPROLOL SUCCINATE XL 25MG TABLET 12.5 MG PO ×2 (08:42→20:13)
[2024-09-01] MEDS: predniSONE 5MG TAB 5 MG PO (08:42)
[2024-09-01] MEDS: PATIENT'S OWN HOME MEDICATION (Tiotropium-Olodaterol [Stiolto Respimat] 2.5-2.5 mcg/actuat 2 EACH IH (08:43)
[2024-09-01] MEDS: PREGABALIN 50MG CAPSULE 50 MG PO ×2 (08:45→20:14)
--- NOTE | 2024-09-01 10:32 | EXP.PHA.PN ---
Subjective *Date: 09/01/24 *Time: 10:32 Medical Exam Vital signs and Labs for Last 24 Hours: Vital Signs Temp Pulse Pulse Resp BP Pulse Ox O2 Del Method 09/01/24 08:47 Nasal Cannula 09/01/24 08:00 97.7 F 75 17 117/59 L 95 Nasal Cannula 09/01/24 07:46 Nasal Cannula 09/01/24 07:00 Nasal Cannula 09/01/24 05:00 Nasal Cannula 09/01/24 04:00 98.1 F 70 16 119/61 95 Nasal Cannula 09/01/24 04:00 60 09/01/24 03:00 Nasal Cannula 09/01/24 01:00 Nasal Cannula 09/01/24 00:00 60 09/01/24 00:00 98.8 F 60 16 154/66 H 96 Nasal Cannula 08/31/24 23:00 Nasal Cannula 08/31/24 21:16 Nasal Cannula 08/31/24 21:00 Nasal Cannula 08/31/24 20:00 50 L 08/31/24 20:00 Nasal Cannula 08/31/24 20:00 98.0 F 57 L 14 127/54 L 97 Nasal Cannula 08/31/24 18:39 Nasal Cannula 08/31/24 16:58 Nasal Cannula 08/31/24 16:00 60 08/31/24 15:42 98.6 F 67 18 122/61 92 L 08/31/24 14:54 Nasal Cannula 08/31/24 13:00 Nasal Cannula 08/31/24 12:00 99.2 F 73 17 110/57 L 91 L 08/31/24 11:00 Nasal Cannula O2 Flow Rate 09/01/24 08:47 1 09/01/24 08:00 1 09/01/24 07:46 1.5 09/01/24 07:00 1.5 09/01/24 05:00 1.5 09/01/24 04:00 1 09/01/24 04:00 09/01/24 03:00 1.5 09/01/24 01:00 1.5 09/01/24 00:00 09/01/24 00:00 1 08/31/24 23:00 1.5 08/31/24 21:16 1.5 08/31/24 21:00 1.5 08/31/24 20:00 08/31/24 20:00 1.5 08/31/24 20:00 1 08/31/24 18:39 1.5 08/31/24 16:58 1.5 08/31/24 16:00 08/31/24 15:42 08/31/24 14:54 1.5 08/31/24 13:00 1.5 08/31/24 12:00 08/31/24 11:00 1.5 Intake and Output 08/31/24 09/01/24 09/01/24 23:59 07:59 15:59 Intake Total 660 / 1330 120 / 120 Output Total 575 / 1175 0 / 0 Balance 85 / 155 120 / 120 Intake: Intake, Oral Amount 660 / 1330 120 / 120 Output: Output, Urine Amount 575 / 1175 0 / 0 Other: Number of Unmeasured Voids 0 1 Number of Bowel Movements 1 Weight 75.024 kg Patient Weight 09/01/24 23:59 Weight 75.024 kg Laboratory Results - last 24 hr 09/01/24 06:15: WBC 3.5 L D, RBC 3.04 L, Hgb 9.4 L, Hct 27.8 L, MCV 91.2, MCH 30.8, MCHC 33.8, RDW 14.5, Plt Count 121 L, MPV 8.6, Neut % (Auto) 59.1, Lymph % (Auto) 32.4, [place] % (Auto) 6.7, Eos % (Auto) 1.5, Baso % (Auto) 0.3, Neut # (Auto) 2.1, Lymph # (Auto) 1.1, [place] # (Auto) 0.2, Eos # (Auto) 0.1, Baso # (Auto) 0.0, Sodium 138, Potassium 4.2, Chloride 100, Carbon Dioxide 32 H, Anion Gap 10.2, BUN 31 H, Creatinine 1.00, Estimated Creat Clear 52, Estimated GFR 53 L, Est GFR ( Amer) 64, Glucose 110 H, Calcium 8.9, Total Bilirubin 0.5, AST 33, ALT 19, Alkaline Phosphatase 56, Total Protein 6.2 L, Albumin 3.4 L, Globulin 2.8, Albumin/Globulin Ratio 1.2 I & O for Labs for Last 24 Hours: Intake & Output 08/29/24 08/30/24 08/31/2417/24 23:59 23:59 23:59 23:59 Intake Total 610 / 750 960 / 960 1210 / 1330 120 / 120 Output Total 730 / 730 90 / 90 1175 / 1175 0 / 0 Balance -120 / 20 870 / 870 35 / 155 120 / 120 Weight 77.36 kg 77.167 kg 77.623 kg 75.024 kg Microbiology Reports for the Last 24 Hours: Microbiology 08/27/24 13:04 Blood Blood Culture - Preliminary NO GROWTH AFTER 4 DAYS 08/27/24 13:02 Blood Blood Culture - Preliminary NO GROWTH AFTER 4 DAYS The patient's infection will respond to the chosen ABx?: Yes Is the patient receiving the right drug, dose, and route?: Yes Could a more targeted ABx be ordered?: No (PATIENT AFEBRILE, WBC LOW, E. COLI IN URINE CX SENSITIVE TO INVANZ.)
--- NOTE | 2024-09-01 13:28 | P.PN_ITS ---
Subjective *Date: 09/01/24 *Time: 13:28 Interval history: She remains stable. She complains about her diet. I will advance it to a regular diet. She complains about not having salt. The computer note that was generated yesterday was completed today. The computer went down yesterday before completion of the note. Hemoglobin is 9.4 today. I will add iron. Medical Exam Vital signs and Labs for Last 24 Hours: Vital Signs Temp Pulse Pulse Resp BP Pulse Ox O2 Del Method 09/01/24 12:00 98.6 F 109 H 17 157/82 H 98 Nasal Cannula 09/01/24 08:47 Nasal Cannula 09/01/24 08:00 70 09/01/24 08:00 97.7 F 75 17 117/59 L 95 Nasal Cannula 09/01/24 07:46 Nasal Cannula 09/01/24 07:00 Nasal Cannula 09/01/24 05:00 Nasal Cannula 09/01/24 04:00 98.1 F 70 16 119/61 95 Nasal Cannula 09/01/24 04:00 60 09/01/24 03:00 Nasal Cannula 09/01/24 01:00 Nasal Cannula 09/01/24 00:00 60 09/01/24 00:00 98.8 F 60 16 154/66 H 96 Nasal Cannula 08/31/24 23:00 Nasal Cannula 08/31/24 21:16 Nasal Cannula 08/31/24 21:00 Nasal Cannula 08/31/24 20:00 50 L 08/31/24 20:00 Nasal Cannula 08/31/24 20:00 98.0 F 57 L 14 127/54 L 97 Nasal Cannula 08/31/24 18:39 Nasal Cannula 08/31/24 16:58 Nasal Cannula 08/31/24 16:00 60 08/31/24 15:42 98.6 F 67 18 122/61 92 L 08/31/24 14:54 Nasal Cannula O2 Flow Rate 09/01/24 12:00 1 09/01/24 08:47 1 09/01/24 08:00 09/01/24 08:00 1 09/01/24 07:46 1.5 09/01/24 07:00 1.5 09/01/24 05:00 1.5 09/01/24 04:00 1 09/01/24 04:00 09/01/24 03:00 1.5 09/01/24 01:00 1.5 09/01/24 00:00 09/01/24 00:00 1 08/31/24 23:00 1.5 08/31/24 21:16 1.5 08/31/24 21:00 1.5 08/31/24 20:00 08/31/24 20:00 1.5 08/31/24 20:00 1 08/31/24 18:39 1.5 08/31/24 16:58 1.5 08/31/24 16:00 08/31/24 15:42 08/31/24 14:54 1.5 Intake and Output 09/01/24 09/01/24 09/01/24 03:59 11:59 19:59 Intake Total 120 / 1410 360 / 1410 Output Total 0 / 575 0 / 0 Balance 120 / 835 360 / 835 0 / 0 Intake: Intake, Oral Amount 120 / 1410 360 / 1410 Output: Output, Urine Amount 0 / 575 0 / 0 Other: Number of Unmeasured Voids 1 1 Number of Bowel Movements 1 Weight 165 lb 6.4 oz Laboratory Results - last 24 hr 09/01/24 06:15: WBC 3.5 L D, RBC 3.04 L, Hgb 9.4 L, Hct 27.8 L, MCV 91.2, MCH 30.8, MCHC 33.8, RDW 14.5, Plt Count 121 L, MPV 8.6, Neut % (Auto) 59.1, Lymph % (Auto) 32.4, Hughes % (Auto) 6.7, Eos % (Auto) 1.5, Baso % (Auto) 0.3, Neut # (Auto) 2.1, Lymph # (Auto) 1.1, Hughes # (Auto) 0.2, Eos # (Auto) 0.1, Baso # (Auto) 0.0, Sodium 138, Potassium 4.2, Chloride 100, Carbon Dioxide 32 H, Anion Gap 10.2, BUN 31 H, Creatinine 1.00, Estimated Creat Clear 52, Estimated GFR 53 L, Est GFR ( Amer) 64, Glucose 110 H, Calcium 8.9, Total Bilirubin 0.5, AST 33, ALT 19, Alkaline Phosphatase 56, Total Protein 6.2 L, Albumin 3.4 L, Globulin 2.8, Albumin/Globulin Ratio 1.2 I & O for Labs for Last 24 Hours: Intake & Output 08/30/24 08/31/24 09/01/24 09/02/24 11:59 11:59 11:59 11:59 Intake Total 740 / 740 860 / 860 1410 / 1410 Output Total 90 / 90 600 / 600 575 / 575 0 / 0 Balance 650 / 650 260 / 260 835 / 835 0 / 0 Weight 170 lb 2 oz 171 lb 2.056 oz 165 lb 6.4 oz Microbiology Reports for the Last 24 Hours: Microbiology 08/27/24 13:04 Blood Blood Culture - Final NO GROWTH AFTER 5 DAYS 08/27/24 13:02 Blood Blood Culture - Final NO GROWTH AFTER 5 DAYS Head: Present normocephalic Neck: Present normal inspection Respiratory: Present CTA bilaterally; Absent respiratory distress Cardiac: Present Reg Rate and Rhythm GI: Present soft; Absent tenderness Rectal (female): Present deferred (female): Present deferred Extremities: Present normal inspection; Absent edema Skin: Present intact Neuro: Present alert and oriented x 3 Assessment and Plan *Assessment and plan (1) Chronic hypoxemic respiratory failure: Status: Acute Category: Medical Code(s): J96.11 - Chronic respiratory failure with hypoxia (2) Fall: Status: Acute Category: Medical Code(s): W19.XXXA - Unspecified fall, initial encounter (3) Rib fractures: Status: Acute Qualifiers: Encounter type: initial encounter Fracture type: closed Laterality: unspecified laterality Qualified Code(s): S22.49XA - Multiple fractures of ribs, unspecified side, initial encounter for closed fracture Category: Medical Code(s): S22.49XA - Multiple fractures of ribs, unspecified side, initial encounter for closed fracture (4) Elevated CK: Status: Acute Category: Medical Code(s): R74.8 - Abnormal levels of other serum enzymes (5) Weakness: Status: Acute Category: Medical Code(s): R53.1 - Weakness (6) Acute UTI: Status: Acute Category: Medical Code(s): N39.0 - Urinary tract infection, site not specified (7) E coli infection: Status: Acute Category: Medical Code(s): A49.8 - Other bacterial infections of unspecified site (8) History of ASCVD (atherosclerotic cardiovascular disease): Status: Acute Category: Medical Code(s): Z86.79 - Personal history of other diseases of the circulatory system (9) Chronic pain: Status: Chronic Qualifiers: Chronic pain type: chronic pain syndrome Qualified Code(s): G89.4 - Chronic pain syndrome Category: Medical Code(s): G89.29 - Other chronic pain (10) Lumbar spinal stenosis: Status: Chronic Qualifiers: Neurogenic claudication status: without neurogenic claudication Qualified Code(s): M48.061 - Spinal stenosis, lumbar region without neurogenic claudication Category: Medical Code(s): M48.061 - Spinal stenosis, lumbar region without neurogenic claudication (11) Coronary artery disease: Problem Comment: MAY 2021-Successful stenting of proximal dominant right coronary severe disease reduced to 0% with 1 drug-eluting stent Status: Chronic Qualifiers: Coronary Disease-Associated Artery/Lesion type: [place] artery [place] vs. transplanted heart: [place] heart Associated angina: with other forms of angina Qualified Code(s): I25.118 - Atherosclerotic heart disease of [place] coronary artery with other forms of angina pectoris Category: Medical Code(s): I25.10 - Atherosclerotic heart disease of [place] coronary artery without angina pectoris (12) Anemia: Status: Acute Category: Medical Code(s): D64.9 - Anemia, unspecified Plan She will be transferred tomorrow if [facility] accepts her on transfer.
[2024-09-01] MEDS: ERTAPENEM SODIUM 1 GM in 0.9 % SODIUM CHLORIDE 50 ML IV (14:00)
[2024-09-01] MEDS: FERROUS SULFATE 325MG TABLET 325 MG PO (14:19)
--- NOTE | 2024-09-01 16:50 | PC.NURSE ---
Pt is more alert and Less drowsy today. She has ambulated to the chair and bathroom with walker and assist. Tolerated well. Medications administered per mar. Family at bedside. Call light within reach.
[2024-09-01] MEDS: TRAZODONE 50MG TABLET 100 MG PO (20:13)
[2024-09-01] MEDS: ATORVASTATIN 20MG TABLET 20 MG PO (20:13)
[2024-09-01] MEDS: PANTOPRAZOLE 40MG TABLET 40 MG PO (20:14)
[2024-09-01] MEDS: SERTRALINE 100MG TABLET 100 MG PO (20:14)
[2024-09-02] VITALS: BP 134/71; PULSE 66; PULSE 70; RESP 16; TEMP 36.7; O2SAT 95
[2024-09-02 04:00] VITALS: BP 138/65; PULSE 60; PULSE 68; RESP 16; TEMP 37.1; O2SAT 95; BMI 27.9
[2024-09-02 06:40] VITALS: PULSE 66; PULSE 70; O2SAT 90
[2024-09-02] MEDS: ALBUTEROL 0.083% 2.5 MG/3 ML NEB IH ×2 (06:40→11:43)
[2024-09-02 07:39] VITALS: BP 118/57; PULSE 78; RESP 20; TEMP 36.4; O2SAT 95
[2024-09-02 08:00] VITALS: PULSE 80
[2024-09-02] MEDS: ENOXAPARIN 40MG/0.4ML SYRINGE 40 MG SUBCUT (08:35)
[2024-09-02] MEDS: FERROUS SULFATE 325MG TABLET 325 MG PO (08:35)
[2024-09-02] MEDS: ASPIRIN 81MG CHEWABLE TABLET 81 MG PO (08:35)
[2024-09-02] MEDS: IRBESARTAN 150MG TAB 150 MG PO (08:36)
[2024-09-02] MEDS: predniSONE 5MG TAB 5 MG PO (08:36)
[2024-09-02] MEDS: PREGABALIN 50MG CAPSULE 50 MG PO (08:36)
[2024-09-02] MEDS: MAGNESIUM OXIDE 400MG TABLET 400 MG PO (08:36)
[2024-09-02] MEDS: METOPROLOL SUCCINATE XL 25MG TABLET 12.5 MG PO (08:36)
[2024-09-02] MEDS: FUROSEMIDE 40 MG TABLET PO (08:36)
[2024-09-02] MEDS: PATIENT'S OWN HOME MEDICATION (Tiotropium-Olodaterol [Stiolto Respimat] 2.5-2.5 mcg/actuat 2 EACH IH (08:37)
--- NOTE | 2024-09-02 08:39 | P.PN_ITS ---
Subjective *Date: 09/02/24 *Time: 09:25 Interval history: Patient states she is doing okay. She is trying to eat her breakfast. She is sitting in a chair at bedside and daughters present in the room. She states she slept okay. She feels her breathing is doing fine and she denies chest. Pain. Medical Exam Vital signs and Labs for Last 24 Hours: Vital Signs Temp Pulse Pulse Resp BP Pulse Ox O2 Del Method 09/02/24 07:39 97.6 F 78 20 118/57 L 95 Nasal Cannula 09/02/24 06:40 66 09/02/24 06:40 70 09/02/24 06:40 90 L Nasal Cannula 09/02/24 06:26 Nasal Cannula 09/02/24 05:00 Nasal Cannula 09/02/24 04:00 60 09/02/24 04:00 98.8 F 68 16 138/65 95 Nasal Cannula 09/02/24 03:00 Nasal Cannula 09/02/24 01:00 Nasal Cannula 09/02/24 00:00 70 09/02/24 00:00 98.1 F 66 16 134/71 95 Nasal Cannula 09/01/24 23:00 Nasal Cannula 09/01/24 20:50 Nasal Cannula 09/01/24 20:00 70 09/01/24 20:00 Nasal Cannula 09/01/24 19:35 98.3 F 72 18 144/83 H 94 L Nasal Cannula 09/01/24 18:40 Nasal Cannula 09/01/24 18:28 Nasal Cannula 09/01/24 17:00 Nasal Cannula 09/01/24 16:00 80 09/01/24 16:00 70 09/01/24 16:00 98.1 F 75 17 129/52 L 95 Nasal Cannula 09/01/24 15:00 Nasal Cannula 09/01/24 13:00 Room Air 09/01/24 12:00 70 09/01/24 12:00 98.6 F 109 H 17 157/82 H 98 Nasal Cannula 09/01/24 11:00 Nasal Cannula 09/01/24 08:47 Nasal Cannula O2 Flow Rate 09/02/24 07:39 1 09/02/24 06:40 09/02/24 06:40 09/02/24 06:40 1 09/02/24 06:26 1 09/02/24 05:00 1 09/02/24 04:00 09/02/24 04:00 1 09/02/24 03:00 1 09/02/24 01:00 1 09/02/24 00:00 09/02/24 00:00 1 09/01/24 23:00 1 09/01/24 20:50 1 09/01/24 20:00 09/01/24 20:00 1 09/01/24 19:35 1 09/01/24 18:40 1 09/01/24 18:28 1.5 09/01/24 17:00 1 09/01/24 16:00 09/01/24 16:00 09/01/24 16:00 1 09/01/24 15:00 1 09/01/24 13:00 09/01/24 12:00 09/01/24 12:00 1 09/01/24 11:00 1 09/01/24 08:47 1 Intake and Output 09/01/24 09/02/24 09/02/24 19:59 03:59 11:59 Intake Total 720 / 720 240 / 960 Output Total 300 / 300 450 / 750 Balance 420 / 420 240 / 660 -450 / 210 Intake: Intake, Oral Amount 720 / 720 240 / 960 Output: Output, Urine Amount 300 / 300 450 / 750 Other: Number of Unmeasured Voids 1 0 Number of Bowel Movements 1 1 Weight 167 lb 11.2 oz Patient Weight 09/02/24 11:59 Weight 167 lb 11.2 oz I & O for Labs for Last 24 Hours: Intake & Output 08/30/24 08/31/24 09/01/24 09/02/24 11:59 11:59 11:59 11:59 Intake Total 740 / 740 860 / 860 1410 / 1410 960 / 960 Output Total 90 / 90 600 / 600 575 / 575 750 / 750 Balance 650 / 650 260 / 260 835 / 835 210 / 210 Weight 170 lb 2 oz 171 lb 2.056 oz 165 lb 6.4 oz 167 lb 11.2 oz Microbiology Reports for the Last 24 Hours: Microbiology 08/27/24 13:04 Blood Blood Culture - Final NO GROWTH AFTER 5 DAYS 08/27/24 13:02 Blood Blood Culture - Final NO GROWTH AFTER 5 DAYS Constitutional: Present no acute distress Comment:: Sitting in comfort chair at bedside eating her breakfast. She appears comfortable. Respiratory: Present CTA bilaterally (Anteriorly and posteriorly) Cardiac: Present Reg Rate and Rhythm GI: Present soft and normal bowel sounds; Absent tenderness or guarding Extremities: Absent edema Neuro: Present alert, awake and oriented x 3 Assessment and Plan *Assessment and plan (1) Chronic hypoxemic respiratory failure: Status: Acute Category: Medical Code(s): J96.11 - Chronic respiratory failure with hypoxia (2) Fall: Status: Acute Category: Medical Code(s): W19.XXXA - Unspecified fall, initial encounter (3) Rib fractures: Status: Acute Qualifiers: Encounter type: initial encounter Fracture type: closed Laterality: unspecified laterality Qualified Code(s): S22.49XA - Multiple fractures of ribs, unspecified side, initial encounter for closed fracture Category: Medical Code(s): S22.49XA - Multiple fractures of ribs, unspecified side, initial encounter for closed fracture (4) Elevated CK: Status: Acute Category: Medical Code(s): R74.8 - Abnormal levels of other serum enzymes (5) Weakness: Status: Acute Category: Medical Code(s): R53.1 - Weakness (6) Acute UTI: Status: Acute Category: Medical Code(s): N39.0 - Urinary tract infection, site not specified (7) E coli infection: Status: Acute Category: Medical Code(s): A49.8 - Other bacterial infections of unspecified site (8) History of ASCVD (atherosclerotic cardiovascular disease): Status: Acute Category: Medical Code(s): Z86.79 - Personal history of other diseases of the circulatory system (9) Chronic pain: Status: Chronic Qualifiers: Chronic pain type: chronic pain syndrome Qualified Code(s): G89.4 - Chronic pain syndrome Category: Medical Code(s): G89.29 - Other chronic pain (10) Lumbar spinal stenosis: Status: Chronic Qualifiers: Neurogenic claudication status: without neurogenic claudication Qualified Code(s): M48.061 - Spinal stenosis, lumbar region without neurogenic claudication Category: Medical Code(s): M48.061 - Spinal stenosis, lumbar region without neurogenic claudication (11) Coronary artery disease: Problem Comment: MAY 2021-Successful stenting of proximal dominant right coronary severe disease reduced to 0% with 1 drug-eluting stent Status: Chronic Qualifiers: Associated angina: with other forms of angina Coronary Disease- Associated Artery/Lesion type: [place] artery [place] vs. transplanted heart: [place] heart Qualified Code(s): I25.118 - Atherosclerotic heart disease of [place] coronary artery with other forms of angina pectoris Category: Medical Code(s): I25.10 - Atherosclerotic heart disease of [place] coronary artery without angina pectoris (12) Anemia: Status: Acute Category: Medical Code(s): D64.9 - Anemia, unspecified Plan Process in the works for transfer to [facility]. Otherwise continue current care for now.
--- NOTE | 2024-09-02 10:54 | EXP.DC.SUM ---
General Admission date:: 08/27/24 Discharge date: 09/02/24 HPI HPI HPI: Ms. Verde is an 79-year-old female with multiple comorbidities including COPD on chronic oxygen of 2 and half to 3 L, heart failure preserved ejection fraction, history of CT, progressive debility, hypertension anemia polymyalgia rheumatica. She presented to the ER after falling at home. Family concerned about finding her lying in the kitchen this morning. Patient does not recall falling, states she has been falling intermittently, mostly in the mornings. Denies worsening shortness of breath. Does complain of some burning and discomfort when she urinates. Has some mild chest discomfort on palpation. Workup in the ER concerning for UTI with grossly abnormal urine, detectable troponin, fractures located on chest imaging and mild elevation in CK. Given debility and findings on workup, medicine consulted for admission and therapy evaluation. Family expressed they have strong concern about patient's progressive decline. Interested in considering placement however patient is hesitant at this time. After arriving to the floor, patient appears at baseline mentation. She is alert and oriented x 4. Stable on 3 L oxygen. Complains of chest pain on my exam when I palpate right and left chest. Denies chest pain at rest however. States she has been falling in the morning. Does not remember falling this morning. Family brought her in because of being found down. States she wants to continue to be at home if at all possible. Denies any cough or shortness of breath. No nausea or vomiting. Reports she has seen cardiology in the past, thinks it was a year ago. Per chart review however was 3 years ago. Hospital Course Hospital Course Hospital Course: On admission patient had workup for her fall. She was started on daily IV Lasix. She continued with her oxygen per nasal cannula throughout her stay. Due to her frequent falls and progression debility PT and OT were consulted for possible placement versus home health. Patient expressed desire to be independent and at home. She did improve during her stay. Physical therapy helped tremendously. She did have a cardiac catheterization with the following results: MPRESSION Mild coronary artery disease Normal ejection fraction Borderline LVEDP Infrarenal abdominal aortic aneurysm Renal artery stenosis which is not creating blood pressure issues or changes in creatinine which suggest hemodynamic significance PLAN 1. Medical management for coronary disease and renal artery stenosis 2. Abdominal aortic ultrasound to better determine the size of the abdominal aortic aneurysm. Stenting the renal arteries would be ill-advised at this point especially given the aneurysm that does involve the suprarenal abdominal aorta and stent to the renal arteries would require stenting around the abdominal aortic aneurysm. Medical management is most warranted 3. Risk factor modification She was followed by cardiology who felt that medical management after cardiac cath was indicated with the following cardiac meds at discharge to include aspirin 81 mg daily Crestor 10 mg nightly Lasix 40 mg daily irbesartan 150 daily metoprolol 12.5 mg twice daily and Protonix 40 mg daily. Patient was noted to have good renal function post angiography. Her UTI was treated with Invant[employer]. Care management was consulted and bed was considered at [facility] Patient did complain about her diet and she was changed to regular diet. And on 09/02/2024 bed became approved for her at [facility] She remained stable. She was able to walk with her walker with assistance. And she was eating well. On this day she was discharged. See med listing. Exam Data for Last 24 hours Vital signs and Labs for Last 24 Hours: Temp Pulse Resp BP Pulse Ox O2 Del Method O2 Flow Rate 97.6 F 80 20 118/57 L 95 Nasal Cannula 1 09/02/24 07:39 09/02/24 08:00 09/02/24 07:39 09/02/24 07:39 09/02/24 07:39 09/02/24 09:00 09/02/24 09:00 I & O for Last 24 hours: Intake & Output 08/30/24 08/31/24 09/01/24 09/02/24 11:59 11:59 11:59 11:59 Intake Total 740 / 740 860 / 860 1410 / 1410 1230 / 1230 Output Total 90 / 90 600 / 600 575 / 575 750 / 750 Balance 650 / 650 260 / 260 835 / 835 480 / 480 Weight 170 lb 2 oz 171 lb 2.056 oz 165 lb 6.4 oz 167 lb 11.2 oz Microbiology Reports for the Last 24 Hours: Microbiology 08/27/24 13:04 Blood Blood Culture - Final NO GROWTH AFTER 5 DAYS 08/27/24 13:02 Blood Blood Culture - Final NO GROWTH AFTER 5 DAYS Narrative: Constitutional: Present no acute distress Comment:: Sitting in comfort chair at bedside eating her breakfast. She appears comfortable. Respiratory: Present CTA bilaterally (Anteriorly and posteriorly) Cardiac: Present Reg Rate and Rhythm GI: Present soft and normal bowel sounds; Absent tenderness or guarding Extremities: Absent edema Neuro: Present alert, awake and oriented x 3 Results Data Completed and Pending Completed studies during hospitalization [Text1]: 08/27/2024 CTA ABD/pelvis FINDINGS: ABDOMEN/PELVIS: The lung bases are clear. Precontrast images demonstrate no evidence of nephrolithiasis. No adrenal masses are identified. The liver, spleen and pancreas are unremarkable. The appendix is normal. There is sigmoid diverticulosis without evidence of diverticulitis. There is a moderately distended bladder with mild bladder wall thickening. There are postoperative changes from left hip arthroplasty. CTA: The abdominal aorta is proper caliber. There is diffuse vascular calcification. The celiac axis and [place] are patent. There is mild stenosis of the proximal SMA. There is calcified plaque of the bilateral renal arteries. There is mild stenosis of the right renal artery. There is moderate to severe stenosis of the left renal artery. The iliac arteries are normal. IMPRESSION: Mild stenosis of the right renal artery. Moderate to severe stenosis of the left renal artery. Mild stenosis of the proximal SMA. Moderately distended bladder with wall thickening. 08/27/[address] IMPRESSION: Multilevel degenerative changes of the cervical spine. Subacute medial right clavicle fracture 08/27/2024 chest CTA IMPRESSION: No evidence of pulmonary embolism. Mild bibasilar atelectasis. Multiple subacute right anterior rib fractures. 08/27/2024 head CTA .FINDINGS: The distal vertebral, basilar and distal internal carotid arteries have an unremarkable appearance. No aneurysm is seen. Major intracranial vessels are patent without significant stenosis. IMPRESSION: There is no evidence of aneurysm or major branch occlusion. 08/27/2024 neck CTA IMPRESSION: There is no evidence of stenosis. 08/28/2024 ECHO Conclusion Normal biventricular systolic function. No significant valvular stenosis or regurgitation. Small sized, heterogeneous, anterior pericardial effusion is present. The largest pocket measures 0.3 cm in diastole. No echo indications of tamponade. 08/27/[address] MPRESSION: Atrophy and mild periventricular chronic ischemic changes. No acute intracranial abnormality identified. DS: Diagnosis Discharge Diagnosis (1) Chronic hypoxemic respiratory failure: Status: Acute Code(s): J96.11 - Chronic respiratory failure with hypoxia (2) Fall: Status: Acute Code(s): W19.XXXA - Unspecified fall, initial encounter (3) Rib fractures: Status: Acute Code(s): S22.49XA - Multiple fractures of ribs, unspecified side, initial encounter for closed fracture Qualifiers: Encounter type: initial encounter Fracture type: closed Laterality: unspecified laterality Qualified Code(s): S22.49XA - Multiple fractures of ribs, unspecified side, initial encounter for closed fracture (4) Elevated CK: Status: Acute Code(s): R74.8 - Abnormal levels of other serum enzymes (5) Weakness: Status: Acute Code(s): R53.1 - Weakness (6) Acute UTI: Status: Acute Code(s): N39.0 - Urinary tract infection, site not specified (7) E coli infection: Status: Acute Code(s): A49.8 - Other bacterial infections of unspecified site (8) History of ASCVD (atherosclerotic cardiovascular disease): Status: Acute Code(s): Z86.79 - Personal history of other diseases of the circulatory system (9) Chronic pain: Status: Chronic Code(s): G89.29 - Other chronic pain Qualifiers: Chronic pain type: chronic pain syndrome Qualified Code(s): G89.4 - Chronic pain syndrome (10) Lumbar spinal stenosis: Status: Chronic Code(s): M48.061 - Spinal stenosis, lumbar region without neurogenic claudication Qualifiers: Neurogenic claudication status: without neurogenic claudication Qualified Code(s): M48.061 - Spinal stenosis, lumbar region without neurogenic claudication (11) Coronary artery disease: Status: Chronic Code(s): I25.10 - Atherosclerotic heart disease of [place] coronary artery without angina pectoris Qualifiers: Associated angina: with other forms of angina Coronary Disease-Associated Artery/Lesion type: [place] artery [place] vs. transplanted heart: [place] heart Qualified Code(s): I25.118 - Atherosclerotic heart disease of [place] coronary artery with other forms of angina pectoris Problem details: MAY 2021-Successful stenting of proximal dominant right coronary severe disease reduced to 0% with 1 drug-eluting stent (12) Anemia: Status: Acute Code(s): D64.9 - Anemia, unspecified Meds Home Medications and Allergies Home Medications ?Medication ?Instructions ?Recorded ?Confirmed ?Type melatonin 10 mg tablet 10 mg PO HSP PRN Sleep 05/20/21 08/28/24 History ascorbic acid (vitamin C) 1,000 mg 1 g PO DAILY 12/16/21 08/28/24 History tablet biotin 5 mg capsule 5 mg PO DAILY 12/16/21 08/28/24 History cholecalciferol (vitamin D3) 125 125 mcg PO DAILY 12/16/21 08/28/24 History mcg (5,000 unit) capsule coenzyme Q10 10 mg capsule 10 mg PO DAILY 12/16/21 08/28/24 History cyanocobalamin (vitamin B-12) 250 250 mcg PO DAILY 12/16/21 08/28/24 History mcg tablet aspirin 81 mg capsule 81 mg PO DAILY 07/22/22 08/28/24 History rosuvastatin 10 mg tablet 10 mg PO DAILY #90 tabs 06/25/24 08/28/24 Rx oxycodone 5 mg tablet 5 mg PO TID PRN back pain #90 tabs 08/13/24 08/28/24 Rx prednisone 5 mg tablet 5 mg PO DAILY #42 tabs 08/20/24 08/28/24 Rx acetaminophen 500 mg capsule 500 mg PO TID 08/27/24 08/28/24 History albuterol sulfate 90 mcg/actuation 1 puff inhalation QIDP PRN 08/27/24 08/28/24 History aerosol inhaler Shortness Of Breath ferrous sulfate 325 mg (65 mg 325 mg PO BID 08/27/24 08/28/24 History iron) tablet (FeroSul) losartan 100 1 tab PO DAILY 08/27/24 08/28/24 History mg-hydrochlorothiazide 12.5 mg tablet metoprolol succinate 25 mg 25 mg PO AM 08/27/24 08/28/24 History tablet,extended release 24 hr omeprazole 40 mg capsule,delayed 40 mg PO DAILY 08/27/24 08/28/24 History release tiotropium 2.5 mcg-olodaterol 2.5 2 puff inhalation DAILY 08/27/24 08/28/24 History mcg/actuation mist for inhalation (Stiolto Respimat) magnesium oxide 400 mg (241.3 mg 400 mg PO DAILY #90 tabs 09/02/24 Rx magnesium) tablet pregabalin 50 mg capsule 50 mg PO BID #60 caps 09/02/24 Rx pregabalin 50 mg capsule (Lyrica) 50 mg PO BID #60 caps 09/02/24 Rx New Prescriptions to Start Prescriptions: magnesium oxide Roly Gilbert pregabalin [Lyrica] Roly Gilbert pregabalin Roly Gilbert Allergies Allergy/AdvReac Type Severity Reaction Status Date / Time cephalexin (CEPHALEXIN) Allergy Unknown hives Verified 08/20/24 11:59 ibuprofen (From Motrin) Allergy hives Verified 08/20/24 11:59 Discharge Plan Disposition Patient Disposition: [facility] Discharge Order Discharge Orders: Discharge Order (Routine); Ordered 09/02/24 Ordered By: Roly Gilbert Follow up Plan Follow up with: Roly Gilbert MD [Primary Care Provider] - 09/10/24 10:15 am Francisco Al MD [Staff Physician] - 09/09/24 2:45 pm Prescriptions/Medication Reconciliation: New magnesium oxide 400 mg (241.3 mg magnesium) Tablet 400 mg PO DAILY Qty: 90 5RF pregabalin [Lyrica] 50 mg Capsule 50 mg PO BID Qty: 60 5RF pregabalin 50 mg capsule 50 mg PO BID Qty: 60 4RF Continued melatonin 10 mg tablet 10 mg PO HSP PRN (Reason: Sleep) ascorbic acid (vitamin C) 1,000 mg tablet 1 g PO DAILY cyanocobalamin (vitamin B-12) 250 mcg tablet 250 mcg PO DAILY cholecalciferol (vitamin D3) 125 mcg (5,000 unit) capsule 125 mcg PO DAILY biotin 5 mg capsule 5 mg PO DAILY coenzyme Q10 10 mg capsule 10 mg PO DAILY oxycodone 5 mg tablet 5 mg PO TID PRN (Reason: back pain) Qty: 90 0RF aspirin 81 mg capsule 81 mg PO DAILY prednisone 5 mg tablet 5 mg PO DAILY Qty: 42 0RF rosuvastatin 10 mg tablet 10 mg PO DAILY Qty: 90 3RF albuterol sulfate 90 mcg/actuation HFA aerosol inhaler 1 puff inhalation QIDP PRN (Reason: Shortness Of Breath) Rx Instructions: INHALE 1 PUFF FOUR TIMES DAILY NEEDED FOR SHORTNESS OF BREATH OR WHEEZING Stiolto Respimat 2.5-2.5 mcg/actuation mist 2 puff inhalation DAILY Rx Instructions: INHALE 2 PUFFS EVERY DAY FOR COPD omeprazole 40 mg capsule,delayed release(DR/EC) 40 mg PO DAILY metoprolol succinate 25 mg tablet extended release 24 hr 25 mg PO AM losartan-hydrochlorothiazide 100-12.5 mg tablet 1 tab PO DAILY ferrous sulfate [FeroSul] 325 mg (65 mg iron) tablet 325 mg PO BID Rx Instructions: TAKE 1 TABLET ONCE DAILY FOR SUPPLEMENT acetaminophen 500 mg Capsule 500 mg PO TID Discontinued pregabalin 75 mg capsule 75 mg PO BID Qty: 60 3RF sertraline 100 mg tablet 100 mg PO HS Rx Instructions: TAKE 1 TABLET EVERY DAY trazodone 50 mg tablet 100 mg PO HS Rx Instructions: TAKE 2 TABLETS EVERY NIGHT AT BEDTIME FOR SLEEP metoprolol succinate 25 mg tablet extended release 24 hr 12.5 mg PO PM Problem Reconciliation Problems Reviewed?: Yes Patient Discharge Instructions ACTIVITY: Up in chair and Up with assistance DIET: regular diet Patient Instructions: DI for Urinary Tract Infection (UTI), How to Prevent Falls, DI for Rhabdomyolysis Print Language: Indonesian Providers Primary Care Provider: Roly Gilbert Admit Provider: Nabil Shook Attending Provider: Roly Gilbert
[2024-09-02 11:26] VITALS: BP 104/54; PULSE 76; RESP 18; TEMP 36.9; O2SAT 95
--- NOTE | 2024-09-02 14:27 | PC.NURSE ---
Report given to Fatimah at [facility], pt daughter transporting pt to facility.
== END 2024-09-02 14:30 | DRG 286 ==
LOC: ER 17:25 → 2ND 17:36
PROVIDERS: Emergency Medicine; Internal Medicine; Internal Medicine Adolescent Medicine; Nurse Practitioner Family; Admitting Provider Student in an Organized Health Care Education/Training Program; Emergency Provider Emergency Medicine; PCP Family Medicine; Visit Provider Family Medicine
PROC: 4A023N7 Measurement of Cardiac Sampling and Pressure, Left Heart, Percutaneous Approach (ICD-10-PCS; principal; 2024-08-29 13:00)
DX: I11.0 Hypertensive heart disease with heart failure (principal); I50.33 Acute on chronic diastolic (congestive) heart failure; S22.41XA Multiple fractures of ribs, right side, initial encounter for closed fracture; N39.0 Urinary tract infection, site not specified; R74.8 Abnormal levels of other serum enzymes; Z99.81 Dependence on supplemental oxygen; S42.001A Fracture of unspecified part of right clavicle, initial encounter for closed fracture; Z96.642 Presence of left artificial hip joint; F32.A Depression, unspecified
CPT/HCPCS: 36252; 36415; 70450; 70496; 70498; 71045; 71275; 72125; 73080; 73110; 74174; 76770; 80048; 80053; 80061; 80307; 80320; 80329; 81001; 82550; 82803; 83605; 83690; 83735; 83880; 84439; 84443; 84484; 85025; 85610; 85730; 86803; 87040; 87086; 87088; 87186; 87389; 93005; 93306; 93458; 94640; 97110; 97162; 97165; 97530; 99152; 99153; 99285; C1725; C1769; J1200; J1335; J1644; J1650; J1940; J1956; J2250; J3010; J3475; J7120; J7512; J7613; Q9967

== ENCOUNTER 2024-12-10 15:17 | Outpatient (CLI) | payer MEDICARE, SELFPAY ==
--- NOTE | 2024-12-10 15:20 | XR_ITS ---
FINAL REPORT CLINICAL HISTORY: cough COMPARISON: 08/27/2024 FINDINGS: 2 views of the chest were obtained . The heart is normal in size. The mediastinum is within normal limits. The lungs are clear. There is no pneumothorax. Osseous structures demonstrate a severe wedge compression of the lower thoracic spine, worse from prior exam. IMPRESSION: No acute cardiopulmonary process. Progressive lower thoracic compression fracture. Reviewed, Interpreted and Dictated by Roly Baez MD Transcribed by Graciela Serrato Authenticated and [facility]
[2024-12-10 17:55] LABS: Alanine Aminotransferase 16 U/L (12-78); Alkaline Phosphatase 71 U/L (38-126); Anion Gap 12.5 mEq/L (5-15); Aspartate Amino Transferase 25 U/L (14-36); Bilirubin,Direct 0.2 mg/dl (0.0-0.4); Bilirubin,Indirect 0.1 mg/dL (0.0-0.9); Bilirubin,Total 0.3 mg/dl (0.2-1.3); Bilirubin,Unconjugated 0.1 mg/dL (0.0-1.1); Blood Urea Nitrogen 25 mg/dl (7-17); Calcium 9.1 mg/dl (8.4-10.2); Carbon Dioxide 26 mmol/L (22.0-30.0); Chloride 104 mmol/L (98-107); Chol/HDL Ratio 4.4 (1-3.5); Cholesterol 123 mg/dl (140-200); Estimated Glomerular Filt Rate 53 ml/min (>60); GFR (African American) 64 ML/MIN (>60); Glucose 128 mg/dl (74-100); HDL Cholesterol 28 mg/dl (40-60); Magnesium 1.7 mg/dl (1.6-2.3); Potassium 4.5 mmoL/L (3.5-5.1); Sodium 138 mmol/L (136-145); Total Protein,Serum 6.8 g/dl (6.3-8.2); Triglycerides 428 mg/dl (30-150)
[2024-12-10 18:02] LABS: Basophils # 0.1 K/mm3 (0-0.2); Basophils % 0.6 % (0.1-2.0); Eosinophils % 0.4 % (0.1-12.0); Hematocrit 34.3 % (37.0-47.0); Hemoglobin 10.8 g/dL (12.2-16.2); Lymphocytes # 1.8 K/mm3 (0.7-4.5); Lymphocytes % 22.8 % (10-50); Mean Corpuscular HGB Conc 31.5 g/dL (31.8-35.4); Mean Corpuscular Hemoglobin 28.6 pg (27.0-31.2); Monocytes # 0.6 K/mm3 (0.1-1.0); Monocytes % 7.3 % (1.7-9.3); Neutrophils # 5.4 K/mm3 (1.8-7.8); Neutrophils % 67.5 % (37.0-80.0); Platelet Count 199 K/mm3 (142-424); Red Blood Count 3.77 M/mm3 (4.20-5.40); Red Cell Distribution Width 14.8 % (11.5-17.5)
[2024-12-10 18:10] LABS: Direct LDL Cholesterol < 30.00 mg/dL (100-129); Free T4 (Free Thyroxine) 0.83 ng/dl (0.78-2.19)
[2024-12-10 18:25] LABS: Thyroid Stimulating Hormone 0.04 uIU/mL (0.465-4.68)
== END 2024-12-10 23:59 | disposition home or self-care (01) ==
LOC: RAD 15:18
PROVIDERS: PCP Family Medicine; Visit Provider Nurse Practitioner Family
DX: R06.02 Shortness of breath (principal); D50.8 Other iron deficiency anemias; R05.8 Other specified cough; E78.2 Mixed hyperlipidemia; I10 Essential (primary) hypertension; I25.118 Atherosclerotic heart disease of native coronary artery with other forms of angina pectoris
CPT/HCPCS: 36415; 71046; 80048; 80061; 80076; 83735; 84439; 84443; 85025

== ENCOUNTER 2024-12-17 14:43 | Outpatient (CLI) | payer MEDICARE, SELFPAY | END 2024-12-17 23:59 | disposition home or self-care (01) | LOC: RT 14:44 | PROVIDERS: PCP Family Medicine; Visit Provider Nurse Practitioner Family | DX: R06.02 Shortness of breath (principal); R05.8 Other specified cough | CPT/HCPCS: 94010 ==

== ENCOUNTER 2024-12-25 08:54 | Outpatient (CLI) | payer MEDICARE, SELFPAY ==
--- NOTE | 2024-12-25 08:55 | XR_ITS ---
FINAL REPORT CLINICAL HISTORY: Frequent Falls COMPARISON: None FINDINGS: Using L1-4, the bone mineral density of the spine is 0.862 g/cm2, corresponding to T-score of -1.7, consistent with osteopenia. Using the right forearm, the bone mineral density of 1/3 is 0.423 g/cm2, corresponding to a T-score of -4.5, consistent with osteoporosis. Using the right hip, the bone mineral density of the total hip is 0.577 g/cm2, corresponding to a T-score of -3.0, consistent with osteoporosis. FRAX not reported because some T-score at or below -2.5. NOTE: T-score: Standard deviation compared with peak bone mass of young adult mean. *Following the recommendations of the International Society of Bone densitometry, classification of hip BMD is based on the lower of two T-scores; total hip or femoral neck. IMPRESSION: Diminished bone mineral density in the right forearm and right hip consistent with osteoporosis, and consistent with osteopenia in the lumbar spine. Reviewed, Interpreted and Dictated by Carlos Hull MD Transcribed by Katy Lemons Authenticated and [facility]
== END 2024-12-25 23:59 | disposition home or self-care (01) ==
LOC: RAD 08:55
PROVIDERS: PCP Family Medicine; Visit Provider Family Medicine
DX: M81.0 Age-related osteoporosis without current pathological fracture (principal)
CPT/HCPCS: 77080

== ENCOUNTER 2025-04-08 01:57 | Outpatient (CLI) | payer MEDICARE, SELFPAY ==
[2025-04-08 18:54] LABS: Basophils % 0.4 % (0.1-2.0); Eosinophils % 0.2 % (0.1-12.0); Hematocrit 33.2 % (37.0-47.0); Hemoglobin 10.3 g/dL (12.2-16.2); Immature Granulocytes # 0.18 10^3uL; Immature Granulocytes % 1.8 %; Lymphocytes # 1.5 K/mm3 (0.7-4.5); Lymphocytes % 14.5 % (10-50); Mean Corpuscular Hemoglobin 28.9 pg (27.0-31.2); Mean Platelet Volume 9.4 fl (7.4-10.4); Monocytes # 0.5 K/mm3 (0.1-1.0); Monocytes % 5.1 % (1.7-9.3); Nucleated Red Blood Cells # 0 10^3/uL; Nucleated Red Blood Cells % 0 %; Platelet Count 195 K/mm3 (142-424); Red Blood Count 3.57 M/mm3 (4.20-5.40); Red Cell Distribution Width 14.6 % (11.5-17.5); Red Cell Distribution Width-SD 49.1 fL; White Blood Count 10.2 K/mm3 (4.8-10.8)
[2025-04-08 20:05] LABS: Albumin Level 3.9 g/dl (3.5-5.0); Chloride 98 mmol/L (98-107); Sodium 138 mmol/L (136-145)
[2025-04-08 20:08] LABS: Alanine Aminotransferase 17 U/L (12-78); Albumin/Globulin Ratio 1.3 (1.1-1.8); Alkaline Phosphatase 63 U/L (38-126); Aspartate Amino Transferase 27 U/L (14-36); Bilirubin,Total 0.4 mg/dl (0.2-1.3); Blood Urea Nitrogen 23 mg/dl (7-17); Calcium 9.2 mg/dl (8.4-10.2); Carbon Dioxide 27 mmol/L (22.0-30.0); Estimated Glomerular Filt Rate 69 ml/min (>60); GFR (African American) 83 ML/MIN (>60); Globulin 2.9 g/dL (1.3-3.2); Glucose 142 mg/dl (74-100); Total Protein,Serum 6.8 g/dl (6.3-8.2)
[2025-04-08 20:38] LABS: Thyroid Stimulating Hormone 0.96 uIU/mL (0.465-4.68)
--- OUTSIDE RECORDS SUMMARY | 2025-04-09 12:40 | XMS_ITS | Encounter Summary ---
Author Organization [employer] Address [address] [place] [id number] Care Team Providers Care Service Tech/Welder Name Role Phone Unavailable Primary Care Provider Unavailabl e Encounter Details Date Type Department Care Team (Late st Contact Info) Description 12/14/2018 Transcribed Document [facility] Family Medicine [facility] [place] [address] ProviderHelen MD [address] [place], [place] [id number] Social History Tobacco Use Types Packs/Day Years Used Date Smoking Tobacco: Never Assessed Comments Unknown Sex and Gender Information Value Date Recorded Sex Assigned at Not on file Legal Sex Female 2:04 PM CDT Gender Identity Not on file Sexual Orientation Not on file documented as of this encounter Miscellaneous Notes * Cerner Conversion Note - Historical ProviderMD - 12/14/2018 3:38 PM SUPERINTENDENT PIPELINES [facility] Main OR Preop Summary Primary Physician: ASHOK CHENG MD-SNU Finalized Date/Time: 12/14/18 16:03:23 Pt. Name: BERNICE NAVARRETE/Sex: 1945 Female Med Rec #: [id number] Physician: ASHOK CHENG MD-SNU Financial #: [id number] Pt. Type: O Room/Bed: Admit/Disch: 12/14/18 11:04:00 - Institution: [facility] PreOp Case Times Entry 1 In Preop 12/14/18 11:12:00 Ready for Holding n/a Room Patient Ready for 12/14/18 12:34:00 Surgery Patient Out of Preop 12/14/18 15:10:00 Patient Out of n/a Holding Room Last Modified By: WILLA CIFUENTES RN 12/14/18 16:03:22 [facility] PreOp Case Times Audit 12/14/18 16:03:22 Patient Access: KELIN Modifier: [email or web address] <+> 1 Patient Out of Preop 12/14/18 12:35:01 Patient Access: KELIN Modifier: YANIVAN <+> 1 Patient Ready for Surgery Finalized By: WILLA CIFUENTES, RN Document Signatures Signed By: WILLA CIFUENTES RN 12/14/18 16:03 Electronically signed by Michelet [facility] Conversion Subsystems Engineer Cerner at 02/02/2023 12:33 PM CDT documented in this encounter Plan of Treatment Not on file documented as of this encounter Visit Diagnoses Not on filedocumented in this encounter
--- OUTSIDE RECORDS SUMMARY | 2025-04-09 12:40 | XMS_ITS | Encounter Summary ---
Author Organization [place] [address] Care Team Providers Care Flooring Machine Feeder Name Role Phone Riley Ogden MD Unavailable [phone] Ramonita Anguiano MD Unavailable [phone] Nabil Gilbert MD Primary Care Provider [phone] Encounter Details Date Type Department Care Team (Late st Contact Info) Description 04/26/2022 Lab Requisition [facility] [place] [address] Abnormal finding of blood chemistry, [...] [facility] Platelet 136(L) 155 - 369 x10(3)/[facility] 04/26/2022 9:55 PM EDT [facility] MPV 10.1 8.8 - 12.5 fL 04/26/2022 9:55 PM EDT [facility] Blood VENOUS BLOOD / Unknown 04/26/2022 11:30 AM EDT 04/26/2022 9:30 PM EDT us Nabil Gilbert MD HEMATOLOGY ORDERABLES Fin al Result [facility] [address] [facility] , [place] [address] documented in this encounter Visit Diagnoses Diagnosis Abnormal finding of blood chemistry, unspecified documented in this encounter Additional Health Concerns Assessment Noted Time A fall risk assessment has been complete d for the patient 12/11/2017 7:56 AM EST documented as of this encounter Care Teams Flooring Machine Feeder Relationship Specialty Start Date End Date Nabil Gilbert MD [address] [facility] [address] [place] [address] PCP - General Family Medicine 12/29/17 Riley Ogden MD [address] [facility] [place] [address] Consulting Physician Obstetrics & Gynecology-Gynecologic Oncology 12/22/17 Ramonita Anguiano MD [address] [facility] [place] [address] Referring Physician Obstetrics & Gynecology 12/21/17 documented as of this encounter
--- OUTSIDE RECORDS SUMMARY | 2025-04-09 12:40 | XMS_ITS | Clinical Summary ---
Author Organization [employer] Address [address] [place] [address] Care Team Providers Care Buffing Wheel Raker Name Role Phone Unavailable Primary Care Provider [...]
--- OUTSIDE RECORDS SUMMARY | 2025-04-09 12:40 | XMS_ITS | Encounter Summary ---
Author Organization [employer] Address [address] [place] [address] Care Team Providers Care Oil Well Directional Surveyor Name Role Phone Unavailable Primary Care Provider Unavailabl e Encounter Details Date Type Department Care Team (Late st Contact Info) Description 12/14/[address] [facility] Neu[facility] - [address] [facility] [address] [place] [address] Francisco Herndon MD [address] [place] [address] Social History Tobacco Use Types [...] the office by Dr. Herndon presents to [facility] for L4-5 MIS decompression possible laminectomy. She [...]
--- OUTSIDE RECORDS SUMMARY | 2025-04-09 12:40 | XMS_ITS | Encounter Summary ---
Author Organization [employer] Address [address] [place] [address] Care Team Providers Care Business Project Analyst Name Role Phone Unavailable Primary Care Provider Unavailabl e Encounter Details Date Type Department Care Team (Late st Contact Info) Description 12/14/2018 Transcribed Document [facility] Family Medicine [facility] [place] [address] ProviderHelen MD [facility] [place], [place] [id number] Social History Tobacco Use Types Packs/Day Years Used Date Smoking Tobacco: Never Assessed Comments Unknown Sex and Gender Information Value Date Recorded Sex Assigned at Not on file Legal Sex Female 2:04 PM CDT Gender Identity Not on file Sexual Orientation Not on file documented as of this encounter Miscellaneous Notes * Cerner Conversion Note - Historical ProviderMD - 12/14/2018 3:38 PM HEATING AND COOLING TECHNICIAN [facility] Main OR PACU Summary Primary Physician: ASHOK CHENG MD-SNU Finalized Date/Time: 12/14/18 18:32:38 Pt. Name: BERNICE NAVARRETE/Sex: 1945 Female Med Rec #: [id number] Physician: ASHOK CHENG MD-SNU Financial #: [id number] Pt. Type: O Room/Bed: Admit/Disch: 12/14/18 11:04:00 - Institution: [facility] Main OR PACU I Case Times Entry 1 In PACU I 12/14/18 16:25:00 Ready for PACU 12/14/18 17:20:00 Discharge Discharge from PACU 12/14/18 18:00:00 I Last Modified By: LARA CHOI RN 12/14/18 18:32:24 [facility] Main OR PACU Acuity Entry 1 Start Time 12/14/18 17:20:00 Stop Time 12/14/18 18:00:00 Acuity Level [facility] PACU Acuity I Last Modified By: LARA CHOI RN 12/14/18 18:32:36 Finalized By: LARA CHOI, RN Document Signatures Signed By: LARA CHOI RN 12/14/18 18:32 Electronically signed by Michelet [facility] Conversion Whizzer Operator Cerner at 02/02/2023 12:30 PM CDT documented in this encounter Plan of Treatment Not on file documented as of this encounter Visit Diagnoses Not on filedocumented in this encounter
--- OUTSIDE RECORDS SUMMARY | 2025-04-09 12:40 | XMS_ITS | Clinical Summary ---
Author Organization [facility] Address [facility] [place] [address] Phone Care Team Providers Care Service Counselor Name Role Phone Riley Ogden MD Unavailable [phone] Ramonita Anguiano MD Unavailable [phone] Nabil Gilbert MD Primary Care Provider [phone] Allergies Active Allergy Reactions Criticality Noted Date [...] 69 05/25/2018 2:20 PM EDT Temperature 36.7 C (98.1 F) 05/25/2018 2:20 PM EDT Respiratory Rate 20 05/25/2018 2:20 PM EDT Oxygen Saturation 94% 04/04/2018 12:20 PM EDT Inhaled Oxygen Concentration - - Weight 76 kg (167 lb 8 oz) 05/25/2018 2:20 PM ED T Height 160 cm (5' 3 ) 04/12/2018 10:34 AM EDT Body Mass Index 29.67 04/12/2018 10:34 AM EDT Plan of Treatment Health Maintenance Due Date Last Done Comments Wellness Exam Medicare 1948 DTaP/TDaP/Td (1 - Tdap) 1962 Pneumococcal Vaccine 50+ (1 of 1 - PCV) 1993 Zoster (1 of 2) 1993 Bone Density Screening 2008 RSV or 60+ (1 - 1-d ose 75+ series) 2018 COVID-19 Vaccine ( - 2023-2 5 season) 2024 Influenza Vaccine (Season Ended) 2025 Hepatitis B Vaccine Aged Out No longe r eligible based on patient's age to complete this topic Meningococcal B Vaccine Aged Out No l onger eligible based on patient's age to complete this topic Insurance Advance Directives For more information, please contact: [phone] Documents on File Type Date Recorded Patient Slitter And Rewinder Machine Operator Expl anation Power of Metal Neutralizer 03/27/2018 8:22 AM Advance Directives/DNR 01/09/2018 6:18 PM Care Teams Service Counselor Relationship Specialty Start Date End Date Nabil Gilbert MD [facility] [address] [place] [address] PCP - General Family Medicine 12/29/17 Riley Ogden MD [address] [place] [address] [place] [address] Consulting Physician Obstetrics & Gynecology-Gynecologic Oncology 12/22/17 Ramonita Anguiano MD [address] [place] [address] [place] [address] Referring Physician Obstetrics & Gynecology 12/21/17
--- OUTSIDE RECORDS SUMMARY | 2025-04-09 12:40 | XMS_ITS | Encounter Summary ---
Author Organization [employer] Address [address] [place] [address] Care Team Providers Care Network Program Manager Name Role Phone Unavailable Primary Care Provider Unavailabl e Encounter Details Date Type Department Care Team (Late st Contact Info) Description 12/14/2018 Transcribed Document [facility] [place] [facility] [address] ProviderHelen MD [address] [place] [id number] Social History Tobacco Use Types Packs/Day Years Used Date Smoking Tobacco: Never Assessed Comments Unknown Sex and Gender Information Value Date Recorded Sex Assigned at Not on file Legal Sex Female 2:04 PM CDT Gender Identity Not on file Sexual Orientation Not on file documented as of this encounter Miscellaneous Notes * Cerner Conversion Note - Historical ProviderMD - 12/14/2018 3:38 PM GORE CUTTER [facility] Main OR IntraOp Summary Primary Physician: ASHOK CHENG MD-SNU Finalized Date/Time: 12/16/18 13:56:08 Pt. Name: BERNICE NAVARRETE Hiram LangfordB./Sex: 1945 Female Med Rec #: [id number] Physician: ASHOK CHENG MD-SNU Financial #: [id number] Pt. Type: O Room/Bed: Admit/Disch: 12/14/18 11:04:00 - Institution: [facility] IntraOp Case Attendance Entry 1 Entry 2 Entry 3 Case Attendee ASHOK CHENG WASSON, SANDRA D, RN SAMMONS, JUSTIN, PA-C MD-SNU Role Performed Surgeon/Proceduralist, Sheet Metal Duct Worker Supervisor, First Physician senior administrative assistant First Time In 12/14/18 15:13:00 12/14/18 15:13:00 12/14/18 15:13:00 Time Out 12/14/18 16:23:00 12/14/18 16:23:00 12/14/18 16:23:00 Procedure Lumbar Laminectomy(Left) Lumbar Laminectomy(Left) Lumbar Laminectomy(Left) Other Attendee Superficial Wound Closed By: Last Modified By: ISAÍAS RINCON, RN ISAÍAS RINCON, RN ISAÍAS RINCON, RN 12/14/18 16:23:11 12/14/18 16:23:11 12/14/18 16:23:11 Entry 4 Entry 5 Entry 6 Case Attendee IGGY EVANS LARRY B, APRON MAN LYLE FIGUEROA MD Role Performed Scrub, First APRON MAN/Nurse Workforce Consultant Anesthesiologist of Record Time In 12/14/18 15:13:00 12/14/18 15:13:00 12/14/18 15:13:00 Time Out 12/14/18 16:23:00 12/14/18 16:04:00 12/14/18 16:23:00 Procedure Lumbar Laminectomy(Left) Lumbar Laminectomy(Left) Lumbar Laminectomy(Left) Other Attendee Superficial Wound Closed By: Last Modified By: ISAÍAS RINCON, RN ISAÍAS RINCON, RN ISAÍAS RINCON, RN 12/14/18 16:23:11 12/14/18 16:23:11 12/14/18 16:23:11 Entry 7 Entry 8 Case Attendee Kendy Raymond SIMPSON, KRISTEN, APRON MAN Diagnostic Hammer Mill Operator Role Performed Drafter Structural APRON MAN/Nurse Workforce Consultant Time In 12/14/18 15:13:00 12/14/18 16:04:00 Time Out 12/14/18 16:23:00 12/14/18 16:23:00 Procedure Lumbar Laminectomy(Left) Lumbar Laminectomy(Left) Other Attendee Superficial Wound Closed By: Last Modified By: ISAÍAS RINCON, RN ISAÍAS RINCON, RN 12/14/18 16:23:11 12/14/18 16:23:11 [facility] IntraOp Case Attendance Audit 12/14/18 16:23:11 Safety Lead: WASSONSY Modifier: WASSONSY 1 <+> Time Out [...] 8 <*> Procedure Lumbar Laminectomy(Left) 12/14/18 16:05:58 Safety Lead: WASSONSY Modifier: WASSONSY 1 <*> Procedure Lumbar [...] Time In <+> 8 Procedure 12/14/18 15:35:50 Safety Lead: WASSONSY Modifier: WASSONSY 1 <+> Time In [...] Role Performed <+> 7 Procedure 12/14/18 14:55:16 Safety Lead: WASSONSY Modifier: WASSONSY <+> 4 Case Attendee <+> 4 Role Performed <+> 4 Procedure <+> 5 Case Attendee <+> 5 Role Performed <+> 5 Procedure [facility] IntraOp Case Times Entry 1 Patient In Room Time 12/14/18 15:13:00 Out Room Time 12/14/18 16:23:00 Anesthesia Start Time 12/14/18 15:13:00 Stop Time 12/14/18 16:23:00 Surgery / Procedure Times Start Time 12/14/18 15:38:00 Stop Time 12/14/18 16:13:00 Last Modified By: ISAÍAS RINCON RN 12/14/18 16:23:07 [facility] IntraOp Case Times Audit 12/14/18 16:23:07 Safety Lead: WASSONSY Modifier: WASSONSY <+> 1 Out Room Time <+> 1 Stop Time 12/14/18 16:13:39 Safety Lead: WASSONSY Modifier: WASSONSY <+> 1 Stop Time 12/14/18 15:38:29 Safety Lead: WASSONSY Modifier: WASSONSY <+> 1 Start Time [facility] IntraOp Cautery Entry 1 Entry 2 ESU Identification Cautery Type Monopolar ESU BiPolar ESU Cautery Type Comments ID Number [id number] ID Type Hospital Number Hospital Number Cautery [...] SANDRA D, RN 12/14/18 15:40:53 12/14/18 15:40:53 [facility] IntraOp Communication Entry 1 Communication To Family/Significant other Comment START Communication By ISAÍAS RINCON RN Date and Time 12/14/18 15:39:00 Last Modified By: ISAÍAS RINCON RN 12/14/18 15:39:44 [facility] IntraOp Counts Verification Entry 1 Procedure Lumbar Laminectomy(Left) Count Info Count Type Sponge, Sharps, Miscellaneous Counts Verification Baseline/pre-procedure Sequence Count Results Not Applicable Counts Performed By Count Performed By IGGY EVANS (Scrub) Count Performed By ISAÍAS RINCON RN (RN) Last Modified By: ISAÍAS RINCON RN 12/14/18 15:40:01 [facility] IntraOp Counts Final Entry 1 Procedure Lumbar Laminectomy(Left) Final Count Info Count Type Sponge, Sharps, Miscellaneous Counts Verification Skin Closure/end of Sequence procedure Count Results Correct, surgeon notified Counts Performed By Count Performed By IGGY EVANS (Scrub) Count Performed By ISAÍAS RINCON RN (RN) Last Modified By: ISAÍAS RINCON RN 12/14/18 16:05:33 [facility] IntraOp Departure from OR Entry 1 Integumentary Assessment Integumentary WDL Assessment WDL Transfer/Handoff Transfer to PACU Phase I Handoff Method Phone call Handoff Reported to VIDYA VALENTINO RN Post-op Transport Stretcher/Gurney Via Patient Transport BOBBY DURAN PA-C, Accompanied by SAULO ABDI CRNA Last Modified By: ISAÍAS RINCON RN 12/14/18 16:06:24 [facility] IntraOp Dressing and Packing Entry 1 Type Dressing Location OP SITE Wound Dressing Item Steristrip, Other Applied By BOBBY DURAN PA-C Other Comments MASTISOL, STERISTRIPS, COVADERM Last Modified By: ISAÍAS RINCON RN 12/14/18 15:50:21 [facility] IntraOp Fire Risk Assessment Entry 1 Fire [...] Modified By: ISAÍAS RINCON RN 12/14/18 15:42:21 [facility] IntraOp General Case Cab Supervisor 1 Case Information OR OR 16 [facility] Case Level 1 Room Verified Yes Wound Class I - Clean Specialty SN Neurosurgery Anesthesia Type General ASA Class 3 Diagnosis Preop Diagnosis LUMBAR RADICULOPATHY Postop Same As Preop No Postop Diagnosis SEE MD POST OP NOTE Last Modified By: ISAÍAS RINCON RN 12/14/18 15:41:01 [facility] IntraOp General Case Data Audit 12/14/18 15:41:01 Safety Lead: RANJAN Modifier: RANJAN <+> 1 ASA Class <+> 1 Room Verified [facility] IntraOp Intraoperative Assessment Entry 1 Handoff Method [...] Modified By: ISAÍAS RINCON RN 12/14/18 15:42:38 [facility] IntraOp Intraoperative Equipment Entry 1 Type Equipment Equipment Equipment Krzysztof Suction System ID Number [id number] Setting 180 MM HG Intraop Monitoring Electrocardiogram Three lead placement (ECG) Electrode Placement Blood Pressure Non-Invasive BP Device Source Antiembolic Devices Antiembolic Devices Sequential compression device, knee high Antiembolic Device Bilateral Location Antiembolic Device 13384 ID Number Scopes Photo/Video Documentation Photo No Video No Last Modified By: ISAÍAS RINCON RN 12/14/18 15:43:35 [facility] IntraOp Medication Admin Entry 1 Entry 2 Entry 3 Medication/Irrigant lidocaine 1% w/ Bacitracin 50,00units SPNG SURGFOAM epinephrine 1:100,000 powder vial [id number] 30ml vial - [id number] Combo Med List Time Administered Route of LOCAL ADDED TO NS IRRIGATION TOPICAL Administration Dose Dose 10 22646 1 Unit of Measure ml units pkt Volume Administered By ASHOK CHENG TUTT, MATTHEW PAIGE, TUTT, MATTHEW PAIGE, MD-SNU MD-SNU MD-SNAlee Procedure Irrigation Irrigant Volume In Irrigant Volume Out Last Modified By: ISAÍAS RINCON, ISAÍAS SAGE, ISAÍAS SAGE RN 12/14/18 15:48:18 12/14/18 15:48:18 12/14/18 15:48:18 Entry 4 Entry 5 Medication/Irrigant thrombin 5000units Kenalog 40mg/ml - topical powder - [id number] Combo Med List Time Administered Route of TOPICAL TOPICAL Administration Dose Dose 5000 40 Unit of Measure units mg Volume Administered By ASHOK CHENG TUTT, MATTHEW PAIGE, MD-SNU MD-SNU Procedure Irrigation Irrigant Volume In Irrigant Volume Out Last Modified By: ISAÍAS RINCON RN WASSON, SANDRA D, RN 12/14/18 15:48:18 12/14/18 16:00:27 General Comments: DR CHENG'S LOCAL COMBO: KENALOG 40 MG, TRAMADOL 15 MG, MARCAINE 0.25% 30 ML [facility] IntraOp Medication Admin Audit 12/14/18 16:00:27 Safety Lead: RANJAN Modifier: WASSONSY <+> 5 Medication/Irrigant <+> 5 Route of Administration <+> 5 Administered By <+> 5 Dose <+> 5 Unit of Measure [facility] IntraOp Patient Positioning Entry 1 Procedure Lumbar Laminectomy(Left) Body Position Prone Left Arm Position Secured on padded arm board Right Arm Position Secured on padded arm board Left Leg Position Elevated Right Leg Position Elevated Feet Uncrossed Yes Pressure Points Yes Checked Positioning Devices Head Rest, Pad, Arm, Pad, Elbow, Pillows, Safety Strap, Thighs, Doug Frame Positioned By ASHOK CHENG MD-PONCE, ISAÍAS RINCON, RN, BOBBY DURAN PA-C, ALEX BLACK, LELA Position Verified Positioning Yes Verified by Anesthesia Positioning Yes Verified by Surgeon Last Modified By: ISAÍAS RINCON RN 12/14/18 15:45:21 [facility] IntraOp Sign In Entry 1 Patient, Site, [...] Modified By: ISAÍAS RINCON RN 12/14/18 15:43:51 [facility] IntraOp Sign Out Entry 1 RN Confirmation [...] Elements Complete? RN Sign Out ISAÍAS RINCON, RN Signature RN Sign Out 12/14/18 16:23:00 Signature [...] Modified By: ISAÍAS RINCON RN 12/14/18 16:23:18 [facility] IntraOp Sign Out Audit 12/14/18 16:23:18 Safety Lead: WASSONSY Modifier: WASSONSY <+> 1 RN Sign Out Signature Date/Time [facility] IntraOp Skin Prep Entry 1 Procedure Lumbar Laminectomy(Left) Prescribed Yes Pre-Surgical Prep Completed Prep Area BACK Intraop Prep Integumentary WDL Assessment WDL Prep Agents Alcohol, Chlorhexadine gluconate, DuraPrep Prep by ASHOK CHENG MD-SNU Hair Removal Methods No hair removal performed Last Modified By: ISAÍAS RINCON, RN 12/14/18 15:44:15 [facility] IntraOp Surgical Procedures Entry 1 Procedure Lumbar Laminectomy Modifiers Left Additional (LT L4-5 DECOMPRESSION, Procedure MIS LAMINECTOMY Description Primary Procedure Yes Primary Surgeon ASHOK CHENG MD-SNU Start 12/14/18 15:38:00 Stop 12/14/18 16:13:00 Anesthesia Type General Specialty SN Neurosurgery Wound Class I - Clean Last Modified By: ISAÍAS RINCON RN 12/14/18 16:13:43 General Comments: CLINDAMYCIN 900 MG IV PER ANESTHESIA [facility] IntraOp Surgical Procedures Audit 12/14/18 16:13:43 Safety Lead: WASSONSY Modifier: WASSONSY <+> 1 Stop 12/14/18 15:48:46 Safety Lead: WASSONSY Modifier: WASSONSY 1 <*> Primary Surgeon ASHOK CHENG MD-SNU 1 <*> Primary Surgeon ASHOK CHENG MD-SNU 1 <*> Primary Surgeon PROSPER, ASHOK SIRENA, MD-SNU 1 <*> Specialty 1 <*> Specialty 1 <*> Specialty 1 <*> Start 1 <*> Start 1 <*> Start 1 <*> Wound Class 1 <*> Wound Class 1 <*> Wound Class 1 <*> Anesthesia Type 1 <*> Anesthesia Type 1 <*> Anesthesia Type [facility] IntraOp Temp Regulation Devices Entry 1 Temp Regulation Temperature Warm blankets, Room Regulation Device temperature, Forced Air Warming device Temperature 91364 Regulation Device Serial/Unit Number Temperature Upper body Regulation Site Temperature Device 43 C Setting Temperature BLACK ALEX Dmitriy, APRON MAN Regulation Device Applied by Last Modified By: ISAÍAS RINCON RN 12/14/18 15:49:45 [facility] IntraOP Time Out Entry 1 Procedure to [...] Modified By: ISAÍAS RINCON RN 12/14/18 15:38:26 [facility] IntraOp X-Ray and Images Entry 1 X-Ray/Imaging Type Fluoroscopy Fluoroscopy Type C-Arm Site OP SITE Certified Medical Dosimetrist Name Kendy Raymond, Diagnostic Hammer Mill Operator Last Modified By: ISAÍAS RINCON RN 12/14/18 15:49:16 Case Comments <None> Finalized By: TOSHIA ROSARIO Document Signatures Signed By: ISAÍAS RINCON RN 12/14/18 16:23 TOSHIA ROSARIO 12/16/18 13:56 Unfinalized History Date/Time Username Reason for Unfinalizing Freetext Reason for Unfinalizing 12/16/18 13:55 WATTSDR Correct Billing Electronically signed by Michelet [facility] Conversion Wet Pan Mixer Cerner at 02/02/2023 12:32 PM CDT documented in this encounter Plan of Treatment Not on file documented as of this encounter Visit Diagnoses Not on filedocumented in this encounter
--- OUTSIDE RECORDS SUMMARY | 2025-04-09 12:40 | XMS_ITS | Encounter Summary ---
Author Organization [employer] Address [address] [place] [address] Care Team Providers Care Back Wedger Name Role Phone Unavailable Primary Care Provider Unavailabl e Encounter Details Date Type Department Care Team (Late st Contact Info) Description 12/14/2018 Transcribed Document [facility] [place] [address] ProviderHelen MD [address] [place] [address] Social History Tobacco Use Types Packs/Day Years Used Date Smoking Tobacco: Never Assessed Comments Unknown Sex and Gender Information Value Date Recorded Sex Assigned at Not on file Legal Sex Female 2:04 PM CDT Gender Identity Not on file Sexual Orientation Not on file documented as of this encounter Miscellaneous Notes * Cerner Conversion Note - Helen ProviderMD - 12/14/2018 5:54 PM YARN CARRIER [address] [address] Patient Copy Patient Information: Name: BERNICE NAVARRETE Current Date: 12/14/2018 17:54:53 : 1945 Patient Address: [address] [place] [address] Patient Attending Physician: ASHOK CHENG MD-SNU Primary Care Provider: MUSTAPHA EASTMAN MD-[facility] Primary Care Provider Discharge Diagnosis: Weight on [...] and water are not available, use hand jewelry inspector. ? Change your dressing as told by [...] or a bad smell. Medicines ??? Take ltrf-mon-goeafck and prescription medicines only as told by [...] urine clear or pale yellow. ? Take isww-lqh-tlmmjjh or prescription medicines. ? Eat foods that [...] 04/21/2006 Document Revised: 05/18/2017 Document Reviewed: 03/19/2017 [employer] Interactive Patient Education ? 2017 [employer]. General Anesthesia, Adult, Care After These instructions [...] activities are safe for you. ??? Take dxos-xsb-uahoyfs and prescription medicines only as told by [...] 01/08/2002 Document Revised: 03/06/2017 Document Reviewed: 09/15/2016 [employer] Interactive Patient Education ? 2017 [employer]. Medication Leaflets: acetaminophen and hydrocodone (a SEET a MIN oh fen and long droe KOE done) Hycet, Lorcet, Taopi, Verdrocet, Vicodin, Xodol, Zamicet What is the [...] may report side effects to FDA at 6-797-HRJ-4380. What other drugs will affect acetaminophen and [...] affect acetaminophen and hydrocodone, including prescription and nkgd-snp-vdphndn medicines, vitamins, and herbal products. Not all [...] to ensure that the information provided by [employer] ('[employer]') is accurate, up-to-date, and complete, but no guarantee is made to that effect. Drug information contained herein may be time sensitive. [employer] information has been compiled for use by healthcare practitioners and consumers in the [place] and therefore [employer] does not warrant that uses outside of the [place] are appropriate, unless specifically indicated otherwise. [employer]'s drug information does not endorse drugs, diagnose patients or recommend therapy. [employer] drug information is an informational resource designed [...] effective or appropriate for any given patient. [employer] does not assume any responsibility for any aspect of healthcare administered with the aid of information [employer] provides. The information contained herein is not intended to cover all possible uses, directions, precautions, warnings, drug interactions, allergic reactions, or adverse effects. If you have questions about the drugs you are taking, check with your doctor, nurse or pharmacist. Copyright 8346-0787 [employer] Version: 15.02. Revision Date: 08/20/2018. cyclobenzaprine (benedicto henriquez) Amrix, Comfort Pac with Cyclobenzaprine, Fexmid What is [...] may report side effects to FDA at 4-275-ZOG-2229. What other drugs will affect cyclobenzaprine? Using [...] drugs may affect cyclobenzaprine, including prescription and nkbx-ggw-cqomwmm medicines, vitamins, and herbal products. Not all [...] to ensure that the information provided by [employer]') is accurate, up-to-date, and complete, but no guarantee is made to that effect. Drug information contained herein may be time sensitive. [employer] information has been compiled for use by healthcare practitioners and consumers in the [place] and therefore [employer] does not warrant that uses outside of the [place] are appropriate, unless specifically indicated otherwise. [employer]'s drug information does not endorse drugs, diagnose patients or recommend therapy. [employer] drug information is an informational resource designed [...] effective or appropriate for any given patient. [employer] does not assume any responsibility for any aspect of healthcare administered with the aid of information [employer] provides. The information contained herein is not intended to cover all possible uses, directions, precautions, warnings, drug interactions, allergic reactions, or adverse effects. If you have questions about the drugs you are taking, check with your doctor, nurse or pharmacist. Copyright 6904-5366 [employer] Version: 5.01. Revision Date: 07/11/2018. CIGARETTE SMOKING: The facts are clear, cigarette smoking will shorten your life. Smoking can cause many illnesses along the way. As a healthcare provider, we recommend that you stop smoking. Assistance with quitting is available by contacting 1-864-UZJI-NOW. This is a free resource providing counseling, [...] Be sure to sign up for the [employer] patient portal, which gives you 08/05 access to your medical information ??? including these discharge instructions ??? using your computer, smartphone, or tablet. Just go to [employer] to get started. Questions? Call . [facility] would like to thank you for allowing us to assist you with your healthcare needs. ROSALBA Parker CATHERINE M, (or front desk representative) have received the above patient education materials/instructions and have verbalized understanding: Patient Signature _ Date/Time Patient Trolley Car Mechanic Signature (if needed) Date/Time Clinician/Hospital Trolley Car Mechanic Signature (if needed) Date/Time Electronically signed by Michelet, [facility] Conversion Risk And Compliance Analytics Director Sohailner at 02/02/2023 12:29 PM CDT documented in this encounter Plan of Treatment Not on file documented as of this encounter Visit Diagnoses Not on filedocumented in this encounter
--- OUTSIDE RECORDS SUMMARY | 2025-04-09 12:40 | XMS_ITS | Encounter Summary ---
Author Organization [employer] Address [address] [place] [address] Care Team Providers Care Straightening Roll Operator Name Role Phone Unavailable Primary Care Provider Unavailabl e Encounter Details Date Type Department Care Team (Late st Contact Info) Description 12/14/2018 Transcribed Document [facility] [place] [facility] [place] [address] ProviderHelen MD [address] [place], [place] [id number] Social History Tobacco Use Types Packs/Day Years Used Date Smoking Tobacco: Never Assessed Comments Unknown Sex and Gender Information Value Date Recorded Sex Assigned at Not on file Legal Sex Female 2:04 PM CDT Gender Identity Not on file Sexual Orientation Not on file documented as of this encounter Miscellaneous Notes * Cerner Conversion Note - Historical ProviderMD - 12/14/2018 6:18 PM AUDIO RECORDING ENGINEER Discharge Instructions Entered On: 12/14/2018 18:19 EST [...] At Discharge Comment : Follow instructionsout from [facility] Neurosurgery. Jalyn Fermin RN - 12/14/2018 18:18 EST Electronically signed by Michelet, [facility] Conversion Loom Doffer Cerner at 02/02/2023 12:21 PM CDT documented in this encounter Plan of Treatment Not on file documented as of this encounter Visit Diagnoses Not on filedocumented in this encounter
--- OUTSIDE RECORDS SUMMARY | 2025-04-09 12:41 | XMS_ITS | Patient Health Record ---
Author Organization [facility] Address [address] [id number] Care Team Providers Care Auto Wheel Alignment Specialist Name Role Phone Jame Gilbert Primary Care Provider Allergies Allergen (clinical drug ingredient) Drug/Non Drug Allergy documented on EMR Reaction Allergy Type Onset Date Status lidocaine ZYLOCAINE (uncoded) Unknown Allergy Active cephalexin Cephalexin rash Drug Allergy Activ e solifenacin VESIcare rash Drug Allergy Activ e Results Component Value Reference Range Notes Bone density Reviewed date:12/27/2024 09:07:39 AM Interpretation:osteoporosis and osteopenia Performing Lab: Notes/Report: osteoporosis and osteopenia Bone density osteoporosis and osteopenia Medications Medication SIG (Take, Route, Frequency, Duration) Notes Start Date End Date Status Metoprolol Succinate ER 25 MG TAKE 1 TABLET IN THE MORNING AND TAKE 1/2 TABLET IN THE EVENING for 90 Active predniSONE 5 MG 1 tab(s) orally ever y other day 08/17/2021 Active Benzonatate 100 MG 1 cap(s) orally 3 ti mes a day prn for 7 days 11/12/2021 Active traZODone HCl 50 MG 1 tab(s) orally at bedtime for 90 days Active Losartan Potassium 50 MG 1 tab(s) orally bid Active Melatonin 5 MG 2 tabs orally once a day (at bedtime) Active Clopidogrel Bisulfate 75 MG 1 tab(s) ora lly once a day Active Vitamin D3 50 MCG (1999 UT) 1 cap(s) ora lly bid for 90 days 09/18/2016 Active Omeprazole 40 MG 1 cap(s) orally once a day for 90 days 08/18/2020 Active Albuterol Sulfate HFA 108 (90 Base) MCG/ACT 2 puff(s) inhaled every 6 hours and prn SOB or wheezing for 30 day(s) 04/15/2021 Active Promethazine-DM 6.25-15 MG/5ML 5 mL orally every 6 hours as needed for cough 09/24/2021 Active Ferrous Sulfate 325 (65 Fe) MG 1 tab(s) orally bid 05/04/2021 Active HYDROcodone-Acetaminophen 5-325 MG 1 tab(s) orally tid prn 09/24/2021 Acti ve oxyCODONE-Acetaminophen 5-325 MG 1 tab(s) Orally every 6 hrs prn 01/27/2024 Active Sertraline HCl 100 MG 1 tab(s) orally on day Active Immunizations Vaccine Route Administration Date Status Comme nts COVID 19 Moderna Unknown 12/16/2020 Administered COVID 19 Moderna Unknown 01/12/2021 Administered COVID 19 Moderna Unknown 09/01/2021 Administered DT, 7 YEARS OR OLDER Unknown 12/20/1996 Administered Fluzone High Dose (65yr and older) IM Intramuscular 09/15/2015 Administered Fluzone High Dose (65yr and older) IM Intramuscular 08/15/2017 Administered Fluzone High Dose (65yr and older) IM Intramuscular 08/07/2018 Administered Fluzone High Dose (65yr and older) Unknown 07/24/2020 Administered Fluzone High Dose (65yr and older) IM Intramuscular 07/06/2021 Administered PNEUMOVAX 23 VACCINE IM Intramuscular 02/03/2017 Administe red Prevnar (PCV13) IM Intramuscular 11/14/2014 Administered Prevnar (PCV13) Unknown 07/31/2015 Pending Prevnar (PCV13) IM Intramuscular 09/15/2015 Administered Tetanus Tdap-Adacel (over 7yrs) IM Intramuscular 10/02/2018 Administered xFlu shot-36 months and older IM Intramuscular 08/18/2005 Administered xFlu shot-36 months and older IM Intramuscular 08/25/2006 Administered xFluzone (6mos and older)-trivalent IM Intramuscular 10/03/2014 Administered xFluzone High Dose-private (65yr&older) Unknown 11/21/2016 Administered xFluzone High Dose-private (65yr&older) Unknown 11/21/2016 Administered xFluzone High Dose-private (65yr&older) Unknown 07/06/2019 Administered Problems Problem Type SNOMED Code ICD Code Onset Dates Problem Status W/U Status Risk Notes Problem 37171187 Essential (prima ry) hypertension (I10) Active confirmed Problem 914523132 Low back pain (M54.5) Active confirmed Problem 56159870 Pain in right shoulder (M25.511) Active confirmed Problem 33663670 Vitamin D deficiency (E55.9) Active confirmed Problem 29623493 Essential hypertension (I10) Active confirmed Problem Cardiac dysrhythmia (117183891) Cardiac dysrhythmia (I49.9) Active confirmed Problem 249159905 Abnormal liver enzymes (R74.8) Active confirmed Problem 11715771 Memory loss (R41.3) Active confirmed Problem 25146063 Lumbar spinal stenosis (M48.06) Active confirmed Problem 485558724 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) Active confirmed Problem 936778012 Mixed hyperlipidemia (E78.2) Active confirmed Problem 15758642 Other chronic pa in (G89.29) Active confirmed Problem 13803444 Other specified cardiac arrhythmias (I49.8) Active confirmed Problem 880876026 Occlusion and stenosis of bilateral carotid arteries (I65.23) Active confirmed Problem 09334729 Pain in left shoulder (M25.512) Active confirmed Problem 86331696 Age-related osteoporosis without current pathological fracture (M81.0) Active confirmed Problem 37711096 Contusion of rig ht foot, initial encounter (S90.31XA) Active confirmed Problem 323136163 Acquired absence of both cervix and uterus (Z90.710) Active confirmed Problem 95415892 Presence of othe r vascular implants and grafts (Z95.828) Active confirmed Problem 74125788 Arteriosclerotic cardiovascular disease (I25.10) Active confirmed Problem 989729460 Adrenal insufficiency (E27.40) Active confirmed Problem 414097816271489 Foot drop, right (M21.371) Active confirmed Problem 452708906 Anxiety associat ed with depression (F41.8) Active confirmed Problem 827108694 New daily persistent headache (G44.52) Active confirmed Problem 64750177 Atrial dysrhythm ia (I49.8) Active confirmed Problem 76722441 Iron deficiency anemia due to chronic blood loss (D50.0) Active confirmed Problem 51388480 Iron deficiency anemia, unspecified iron deficiency anemia type (D50.9) Active confirmed Problem 39373480 Atrial fibrillation, unspecified type (I48.91) Active confirmed Problem 04206094 Hyperlipidemia, unspecified hyperlipidemia type (E78.5) Active confirmed Problem 260429921 Imbalance (R26.89) Active confirmed Problem 975653193421591 Stenosis of righ t carotid artery (I65.21) Active confirmed Problem 15589450 Osteoarthrosis involving more than one site, but not specified as generalized (M15.9) Active confirmed Problem 981661468 Esophageal reflu x (K21.9) Active confirmed Problem 488759074 Chronic lung disease (J98.4) Active confirmed Problem 07356706 Abnormal liver function (K76.89) Active confirmed Problem Post-menopausal bleeding (N95.0) Active confirmed Problem 661333380 Cardiac dysrhythmia, unspecified (I49.9) Active confirmed Problem 626283636 Urinary incontinence, unspecified type (R32) Active confirmed Problem 180044624 Atherosclerosis of [place] coronary artery without angina pectoris, unspecified whether [place] or transplanted heart (I25.10) Active confirmed Problem 67545946 Bilateral caroti d artery stenosis (I65.23) Active confirmed Problem 99927472 Pain of left hip joint (M25.552) Active confirmed Problem 20197405 Radiculopathy affecting upper extremity (M54.10) Active confirmed Problem 155782834 Status post hysterectomy (Z90.710) Active confirmed Problem 978756844 Arthropathy of h and (M19.049) Active confirmed Problem 64097015 Spinal stenosis of lumbar region, unspecified whether neurogenic claudication present (M48.061) Active confirmed Problem 255570567 Chronic hypoxemi c respiratory failure (J96.11) Active confirmed Problem 314405457 Status post angioplasty with stent (Z95.820) Active confirmed Problem 287498178 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) Active confirmed Problem 76555179 Shoulder pain, unspecified chronicity, unspecified laterality (M25.519) Active confirmed Problem 25093770 Parotitis (K11.20) Active confirmed Problem 072283377 Acute anemia (D64.9) Active confirmed Encounters Encounter Location Date Provider Diagnosis [place] [address] [place] [phone] 11/15/2024 Jame Gilbert [facility] [address] [place] [phone] 12/27/2024 Jame Gilbert Plan Of Treatment No Information Insurance Providers Payer Name Payer Address Payer Phone Subscriber Number Group Number Insured Name Patient Relationship to Insured Coverage Start Date Coverage End Date [employer] (MEDICAR E) [address] [address] [place] [address] [id number] BERNICE NAVARRETE Self - patient is the insured Medical (General) History Medical History History ICD Code OA Depression Peripheral Neuropathy HTN Anemia, transfusion 3 units PRBC 07/13/12 09/05/13 Carotids < 70% left, < 40% righ t 09/06/13 Cardiolyte neg, 84% cataracts flu 2018 [facility] [employer] 08/09/19 COVID 19 Vaccine 12/14/2020, 01/10/2021 Surgical History Surgery Date(Month/Year) d&c back surg EGD, Colonoscopy, antral gastritis, 2 co jamil polyps 09/14/12 cataract lt 01/21/14 catarat rt 02/25/14 hysterectomy, abdominal 03/2018 minimally invasive laminectomy, Dr. Herndon 12/14/2018 Stent left carotid, Dr. Stevens, from 70% stenosis to less than 10% 02/08/2019 stent rt side of heart 05/25/2021 Hospitalization History Reason Date(Month/Year) anemia 09/12/12
--- OUTSIDE RECORDS SUMMARY | 2025-04-09 12:41 | XMS_ITS | Encounter Summary ---
Author Organization [facility] Address [address] [place] [address] Care Team Providers Care Bandoleer Packer Name Role Phone Unavailable Primary Care Provider Unavailabl e Encounter Details Date Type Department Care Team (Late st Contact Info) Description 12/13/2018 Transcribed Document [facility] [place] Family Medicine [facility] [place] [address] ProviderHelen MD [facility] [place] [id number] Social History Tobacco Use Types Packs/Day Years Used Date Smoking Tobacco: Never Assessed Comments Unknown Sex and Gender Information Value Date Recorded Sex Assigned at Not on file Legal Sex Female 2:04 PM CDT Gender Identity Not on file Sexual Orientation Not on file documented as of this encounter Miscellaneous Notes * Cerner Conversion Note - Historical ProviderMD - 12/13/2018 1:56 PM HAND COREMAKER PAT Adult Entered On: 12/13/2018 14:00 EST Performed On: 12/13/2018 13:56 EST by ANDREW HINES RN Pain Assessment Pain Assessment : Initial assessment Pain Location Comment : denies pain JEWELS PURVIS RN - 12/14/2018 12:06 EST Height and Weight, Clinical Dosing Height Source : Measured Height Entry Format : [place] Height, Feet : 0 ft(Converted to: 0 cm, 0 Inch) Height, Inches : 63 Inch(Converted to: 5 ft 3 Inch, 160.02 cm) Clinical Height : 160.02 cm Weight Source : Standing scale Weight Entry Format : [place] Clinical Dosing Weight : 76.14 kg Weight, Pounds : 167.5 lb Body Surface Area (BSA) : 1.8 m2 Body Mass Index : 29.7 kg/m2 (HI) [place] Body Weight : 52 kg JEWELS PURVIS [...] 13:56 EST General Info Primary Language : Bahamian Communication Barrier : None JEWELS PURVIS RN [...]
--- OUTSIDE RECORDS SUMMARY | 2025-04-09 12:41 | XMS_ITS | Encounter Summary ---
Author Organization [facility] Address [address] [place] [address] Care Team Providers Care Environmental Intern Name Role Phone Unavailable Primary Care Provider Unavailabl e Encounter Details Date Type Department Care Team (Late st Contact Info) Description 12/14/2018 Transcribed Document [facility] [place] [facility] [place] [address] ProviderHelen MD [address] [place] [address] Social History Tobacco Use Types Packs/Day Years Used Date Smoking Tobacco: Never Assessed Comments Unknown Sex and Gender Information Value Date Recorded Sex Assigned at Not on file Legal Sex Female 2:04 PM CDT Gender Identity Not on file Sexual Orientation Not on file documented as of this encounter Miscellaneous Notes * Cerner Conversion Note - Helen ProviderMD - 12/14/2018 6:20 PM EXPLOSIVE [place] [address] Patient Copy Patient Information: Name: BERNICE NAVARRETE Current Date: 12/14/2018 18:20:06 : 1945 Patient Address: [address] [place] [address] Patient Attending Physician: ASHOK CHENG MD-[facility] Primary Care Provider: MUSTAPHA EASTMAN MD-[facility] Primary Care Provider Discharge Diagnosis: Weight on Admission: 167 lb, 8 oz Comment: Follow-up Instructions: With: Address: When: ASHOK CHENG [address] [facility], [address] [place] [phone] [employer] [place] (1) 3:15 PM Comments: Appointment has been [...] Care after Discharge Comment: Follow [facility]out from [facility]. Immunizations Documented During Stay: No Immunizations [...] and water are not available, use hand inside phone sales. ? Change your dressing as told by [...] or a bad smell. Medicines ??? Take uffu-wfs-phfltoc and prescription medicines only as told by [...] urine clear or pale yellow. ? Take dwyj-scd-iflydjx or prescription medicines. ? Eat foods that [...] 04/21/2006 Document Revised: 05/18/2017 Document Reviewed: 03/19/2017 [employer] Interactive Patient Education ? 2017 [employer] General Anesthesia, Adult, Care After These [...] activities are safe for you. ??? Take ydoq-srl-ffgvjcn and prescription medicines only as told by [...] 01/08/2002 Document Revised: 03/06/2017 Document Reviewed: 09/15/2016 [employer] Interactive Patient Education ? 2017 [employer] Medication Leaflets: acetaminophen and hydrocodone (a SEET a MIN oh fen and long droe KOE done) Hycet, Lorcet, [place], Verdrocet, Vicodin, Xodol, Zamicet What is the [...] may report side effects to FDA at 6-383-WIP-9171. What other drugs will affect acetaminophen and [...] affect acetaminophen and hydrocodone, including prescription and baxl-ozk-vzdbruh medicines, vitamins, and herbal products. Not all [...] to ensure that the information provided by [employer]. ('Multum') is accurate, up-to-date, and complete, but no guarantee is made to that effect. Drug information contained herein may be time sensitive. Muzy information has been compiled for use by healthcare practitioners and consumers in the [place] and therefore [employer] does not warrant that uses outside of the [place] are appropriate, unless specifically indicated otherwise. [employer]'s drug information does not endorse drugs, diagnose patients or recommend therapy. Worker[employer]ee Virtual Assistantss drug information is an informational resource designed [...] effective or appropriate for any given patient. [employer] does not assume any responsibility for any aspect of healthcare administered with the aid of information [employer] provides. The information contained herein is not intended to cover all possible uses, directions, precautions, warnings, drug interactions, allergic reactions, or adverse effects. If you have questions about the drugs you are taking, check with your doctor, nurse or pharmacist. Copyright 5601-0742 [employer]. Version: 15.02. Revision Date: 08/20/2018. cyclobenzaprine (benedicto henriquez) Lala Rodríguez with Cyclobenzaprine, Fexmid What is the most [...] may report side effects to FDA at 6-086-SFI-5203. What other drugs will affect cyclobenzaprine? Using [...] drugs may affect cyclobenzaprine, including prescription and qnxr-qwt-npmkash medicines, vitamins, and herbal products. Not all [...] to ensure that the information provided by [employer]. ('Gasp [employer]') is accurate, up-to-date, and complete, but no guarantee is made to that effect. Drug information contained herein may be time sensitive. Muzy information has been compiled for use by healthcare practitioners and consumers in the [place] and therefore [employer]zy does not warrant that uses outside of the [place] are appropriate, unless specifically indicated otherwise. [employer] drug information does not endorse drugs, diagnose patients or recommend therapy. Work[employer] Virtual Assistantss drug information is an informational resource designed [...] effective or appropriate for any given patient. [facility] does not assume any responsibility for any aspect of healthcare administered with the aid of information [facility] provides. The information contained herein is not intended to cover all possible uses, directions, precautions, warnings, drug interactions, allergic reactions, or adverse effects. If you have questions about the drugs you are taking, check with your doctor, nurse or pharmacist. Copyright 2536-0829 [facility] [employer]. Version: 5.01. Revision Date: 07/11/2018. CIGARETTE SMOKING: The facts are clear, cigarette smoking will shorten your life. Smoking can cause many illnesses along the way. As a healthcare provider, we recommend that you stop smoking. Assistance with quitting is available by contacting 4-652-CMWG-NOW. This is a free resource providing counseling, [...] Be sure to sign up for the [employer] patient portal, which gives you 24/ access to your medical information ??? including these discharge instructions ??? using your computer, smartphone, or tablet. Just go to Plazes to get started. Questions? Call . [facility] would like to thank you for allowing us to assist you with your healthcare needs. ROSALBA Parker CATHERINE M, (or employment program representative) have received the above patient education materials/instructions and have verbalized understanding: Patient Signature _ Date/Time Patient Stationary Plant Operators Signature (if needed) Date/Time Clinician/Hospital Stationary Plant Operators Signature (if needed) Date/Time documented in this encounter Plan of Treatment Not on file documented as of this encounter Visit Diagnoses Not on filedocumented in this encounter
--- OUTSIDE RECORDS SUMMARY | 2025-04-09 12:41 | XMS_ITS | Encounter Summary ---
Author Organization [facility] Address [address] [place] [address] Care Team Providers Care Metallurgical Specialist Name Role Phone Unavailable Primary Care Provider Unavailabl e Encounter Details Date Type Department Care Team (Late st Contact Info) Description 12/14/2018 Transcribed Document [facility] Neurology - [address] [facility] [address] [place] [address] Francisco Herndon MD [address] [place] [address] Social History Tobacco Use Types [...] invasive L4-5 laminectomy. SURGEON: Francisco Herndon MD CODING QUALITY COORDINATOR: Endy Hogue. TYPE OF ANESTHESIA: GEA. DESCRIPTION [...] Francisco Herndon M.D. CC2: Dr. Nabil Gilbert; [facility] [address], [address] [address]; [phone] documented in this encounter Plan of Treatment Not on file documented as of this encounter Visit Diagnoses Not on filedocumented in this encounter
--- OUTSIDE RECORDS SUMMARY | 2025-04-09 12:41 | XMS_ITS | Encounter Summary ---
Author Organization [facility] Address [address] [place] [address] Care Team Providers Care Identification And Records Commander Name Role Phone Unavailable Primary Care Provider Unavailabl e Encounter Details Date Type Department Care Team (Late st Contact Info) Description 12/14/2018 Transcribed Document [facility] [place] [facility] [place] [address] ProviderHelen MD [facility] [place] [id number] Social History Tobacco Use Types Packs/Day Years Used Date Smoking Tobacco: Never Assessed Comments Unknown Sex and Gender Information Value Date Recorded Sex Assigned at Not on file Legal Sex Female 2:04 PM CDT Gender Identity Not on file Sexual Orientation Not on file documented as of this encounter Miscellaneous Notes * Cerner Conversion Note - Historical ProviderMD - 12/14/2018 6:18 PM CLOTH FEEDER Nursing Discharge Summary Entered On: 12/14/2018 18:18 [...] - 12/14/2018 18:18 EST Electronically signed by Michelet [facility] Conversion Thermodynamic Physicist Cerner at 02/02/2023 12:18 PM CDT documented in this encounter Plan of Treatment Not on file documented as of this encounter Visit Diagnoses Not on filedocumented in this encounter
--- OUTSIDE RECORDS SUMMARY | 2025-04-09 12:41 | XMS_ITS | Data Portability ---
Author Organization [facility] Address [address] [place] [address] Care Team Providers Care Asbestos Worker Name Role Phone MUSTAPHA EASTMAN Referring Provider Assessment Encounter Date Assessment Date Assessment LastModified by Organization Details LastModified Time 11/05/2018 11/05/2018 Mrs. 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 I think she is a candidate for microscopic decompression at this segment, but need to confirm she is not unstable first. We will order some standing flexion-extensio n lumbar lateral views. Depending on these results we will discuss surgical intervention. I described the procedure in detail. We discussed the risks and benefits of the operation. I think it will be a good option for her as she has exhausted conservative methods. Not available 11/05/2018 15:37:00 01/21/2019 01/21/2019 Mrs. Verde is a 73-year-old female status post minimally invasive L4-5 laminectomy. She is doing great. I'm comfortable releasing her from my care at this time. She understands that she can call at any time with questions or concerns. Not available 01/21/2019 15:15:20 Plan of Treatment Reminders Order Date Submit Date Provider Last Modified By Organization Details Last Modified Time Details Appointments None record ed. Lab None record ed. Referral None record ed. Procedures None record ed. Surgeries None record ed. Imaging None record ed. Medication Orders None record ed. Patient TargetsNo targets recorded. Patient InstructionsNo instructions recorded. Reason for Referral None Reported. Results Created Date Observation Date Name Description Value Unit Range Abnormal Flag Note LastModifiedBy Organization Detail LastModifiedTime 11/05/19 19 11/05/2018 XR, lumbo sacra l spine , 2 or 3 view, bendi ng only No observ ation record ed. [email or web address] [facility] [address], [place], [address], 11/09/2018 09:26:56 11/08/19 19 10/15/2018 MRI, lumba r spine , w/o contr ast No observ ation record ed. BARCODE Not Available 2018 16:46:33 Result Notes None recorded. Procedures Surgical History Date Name Laterality Status Provider Name and Address Organization Details Recorded Time 12/15/19 19 LAMINECTOMY, LUMBAR (SURG) completed Bisi TUCKER [facility] 12/17/2018 08:47:03 operation on fallopian tube [facility] 11/05/2018 15:02:16 Back Surgery completed Bisi TUCKER [facility] 11/05/2018 15:02:23 hemorrhoidectomy completed Bisi Ashby [facility] 11/05/2018 15:02:32 hysterectomy completed Bisi TUCKER [facility] 11/05/2018 15:02:40 Carpal tunnel surgery completed Bisi TUCKER [facility] 11/05/2018 15:02:45 Imaging Results None recorded. Procedure Notes None recorded. Medical Equipment None Reported. Allergies Allergen ID Allergen Name Allergen Category Reaction Reaction Severity Criticality Documentation Date Start Date Code Code System Note Provider Name and Address Organization Details Recorded Time [id number] Keflex medicatio n Not available Not available Not available 11/05/201878788 7 RxNorm [facility] 9 14:58:15 Medications Name Sig Start Date Stop Date Status Note LastModified by Organization Details LastModified Time lubricant eye drops active Not Available Not Available Not Available vitamin c 500mg active Not Available N ot Available Not Available aspirin low dose 81mg ec active Not Available Not Available Not Available vitamin b12 active Not Available Not A vailable Not Available wart remover liquid active Not Available Not Available Not Available sinus acetaminophen/p henylephr active Not Available Not Available No t Available expectorant guaifenesin 400m active Not Available Not Available Not Available vitamin d 5000 iu active Not Available Not Available Not Available 7 day pill box active Not Available No t Available Not Available medicated chest rub active Not Available Not Available Not Available allergy cream itch and pain active Not Available Not Availabl e Not Available denture adhesive active Not Available Not Available Not Available triple antibiotic ointment plu active Not Available Not Available Not Available cyclobenzaprine 10 mg tablet Take 1 tablet 3 times a day by oral route as needed. 2018 active Not Available Not Available Not Avai lable promethazine-DM 6.25 mg-15 mg/5 mL oral syrup active Not Available Not Availabl e Not Available trazodone 50 mg tablet Take 1 tablet every day by oral route. active Not Available Not Available No t Available atorvastatin 10 mg tablet Take 1 tablet every day by oral route. active Not Available Not Available No t Available azithromycin 250 mg tablet active Not Available Not Availabl e Not Available benzonatate 200 mg capsule active Not Available Not Available N ot Available hydrocodone 5 mg-acetaminophe n 325 mg tablet active Not Available Not Availa ble Not Available alendronate 70 mg tablet active Not Available Not Available No t Available sertraline 100 mg tablet active Not Available Not Available No t Available omeprazole 40 mg capsule,delayed release active Not Available Not Available Not Available losartan 100 mg-hydrochlorot hiazide 25 mg tablet active Not Available Not Available Not Available ferrous sulfate 325 mg (65 mg iron) tablet Take 1 tablet every day by oral route. active Not Available Not Available No t Available losartan 25 mg tablet Take 1 tablet every day by oral route. active Not Available Not Available No t Available gabapentin 300 mg capsule Take 1 capsule 3 times a day by oral route. active Not Available Not Available No t Available furosemide 20 mg tablet Take 1 tablet every day by oral route. active Not Available Not Available No t Available [place] 7.5 mg-325 mg tablet Take 1 tablet every 6 hours by oral route. 2018 active Not Available Not Available Not Avai lable methylprednisol one 4 mg tablets in a dose pack active Not Available Not Available No t Available Ventolin HFA 90 mcg/actuation aerosol inhaler active Not Available Not Availa ble Not Available omeprazole 40 mg oral packet Take by oral route. active Not Available Not Available No t Available sertraline active Not Available Not Av ailable Not Available Vitamin C active Not Available Not Georgette ilable Not Available Aspir-81 active Not Available Not Avai lable Not Available Vitamin D active Not Available Not Georgette ilable Not Available Hydrocodone active Not Available Not A vailable Not Available Vitamin B12 active Not Available Not A vailable Not Available Vitals Date Recorded Body height Body mass index (BMI) Body weight Systolic blood pressure Diastolic blood pressure Provider Name and Address Organization Details Last Updated DateTime 11/05/2018 160.02 cm 29.8 kg/m2 46141.52 g 112 mm[Hg] 62 mm[Hg] Bisi Ariana [facility] 9 14:58:04 Date Recorded Body height Body mass index (BMI) Body weight Systolic blood pressure Diastolic blood pressure Provider Name and Address Organization Details Last Updated DateTime 01/21/2019 160.02 cm 29.8 kg/m2 41300.52 g 120 mm[Hg] 80 mm[Hg] Marcia Garcia [facility] 9 15:14:18 Social History Question Answer Notes LastModified by Organizat ion Details LastModified Time Tobacco Smoking Status Former Smoker Biis Ariana [facility] 11/05/2018 15:02:04 What Was The Date Of Your Most Recent Tobacco Screening? 01/21/2019 Information n ot available 12/03/2019 Sex: Unknown Functional Status None recorded. Mental Status None recorded. Family History Nothing Reported. Medical History Condition Response Osteoporosis/Osteopenia Y Arthritis Y Hypertension Y High Cholesterol Y Gynecological HistoryNo gynecological history recorded. Obstetrics History GPAL:G 0 P 0 0 0 0 Past Encounters Encounter ID Performer Location Encounter Start Date Encounter Closed Date Diagnosis/Indication Diagnosis SNOMED-CT Code Diagnosis ICD10 Code Diagnosis Note [id number] ASHOK CHENG MD [facility] [address] [place] [address] 11/05/2018 14:45:34 11/06/2018 09:37:22 Lumbar radiculopathy 667475474 M54.16 [id number] ASHOK CHENG MD [facility] [address] [place] [address] 01/21/2019 15:03:00 01/22/2019 09:43:25 Postoperative care [id number] Z48.89 Health Concerns Section Related Observation LastModified by Organization Detai ls LastModified Time None Recorded Concern Status LastModified by Organization Details LastModified Time None Recorded Advance Directives Directive None Recorded Payers Insurance Date Sequence Insurance Name Policy Number Policy Eastman Covered Member ID Eastman Member ID Guarantor Name 11/23/2018 1 [place]MEDICARE REPLACEMENT REGIONAL PPO) [id number] [place]de [id number] [place] 01/18/2019 1 [employer] (MEDICARE REPLACEMENT/AD VANTAGE - PPO) [id number] [place]de [id number] [place] Notes Date Note Type Note Provider Name and Address Organization Details Recorded Time 11/05/2018 text/html Mrs. China Verde is a 73-year-old female presenting with low back, left hip and leg pain. She describes severe pain in an L5 distribution. This started many years ago. The pain is now 8 out of 10 and described as a deep ache. The pain is constant. It is made worse with sweeping and mopping. She describes left lower extremity numbness, tingling and weakness. No loss of bladder control. She underwent 13 physical therapy visits at [facility] without relief. She has trialed steroids, anti-inflammatories and Neurontin. She underwent injections which helped at first, but now only last for approximately 48 hours. ASHOK CHENG MD [facility] [place], [address], [facility] 11/05/2018 16:18:55 01/21/2019 text/html Mrs. Jessica Verde is a 73-year-old female status post L4-5 minimally invasive laminectomy performed on December 14, 2018. She reports complete relief of pain. She is off all pain medication. This is her first postoperative follow-up. ASHOK CHENG MD [facility] [place], [address], [facility] 01/21/2019 15:38:25 OBGyn Episode No OBEpisode recorded.
--- OUTSIDE RECORDS SUMMARY | 2025-04-09 12:41 | XMS_ITS | Encounter Summary ---
Author Organization [employer] [facility] Address [address] [place] [address] Care Team Providers Care 4 H Youth Development Specialist Name Role Phone Unavailable Primary Care Provider Unavailabl e Encounter Details Date Type Department Care Team (Late st Contact Info) Description 12/14/2018 Transcribed Document [facility] [place] [facility] [place] [address] ProviderHelen MD [facility] [place], [place] [address] Social History Tobacco Use Types Packs/Day Years Used Date Smoking Tobacco: Never Assessed Comments Unknown Sex and Gender Information Value Date Recorded Sex Assigned at Not on file Legal Sex Female 2:04 PM CDT Gender Identity Not on file Sexual Orientation Not on file documented as of this encounter Miscellaneous Notes * [employer]ner Conversion Note - Historical ProviderMD - 12/14/2018 3:38 PM PLASTICS FACTORY WORKER [facility] Main OR PostOp Summary Primary Physician: ASHOK CHENG MD-SN Finalized Date/Time: 12/14/18 18:24:11 Pt. Name: ROSALBABERNICE/Sex: 1945 Female Med Rec #: [id number] Physician: ASHOK CHENG MD-SNU Financial #: [id number] Pt. Type: O Room/Bed: Admit/Disch: 12/14/18 11:04:00 - Institution: [facility] Main OR PostOp Case Times Entry 1 In PACU II 12/14/18 18:00:00 Ready for PACU II 12/14/18 18:20:00 Discharge Discharge from PACU 12/14/18 18:25:00 II Last Modified By: Jalyn Fermin RN 12/14/18 18:23:56 [facility] Main OR PostOp Case Times Audit 12/14/18 18:23:56 Carroter: RAMEZALR Modifier: RAMEZALR 1 <*> Discharge from PACU II 12/14/18 18:20:00 12/14/18 18:17:07 Carroter: RAMEZALR Modifier: RAMEZALR <+> 1 Ready for PACU II Discharge <+> 1 Discharge from PACU II Finalized By: Jalyn Fermin, RN Document Signatures Signed By: Jalyn Fermin RN 12/14/18 18:17 Jalyn Fermin RN 12/14/18 18:24 Unfinalized History Date/Time Username Reason for Unfinalizing Freetext Reason for Unfinalizing 12/14/18 18:23 [place] Correct Documentation documented in this encounter Plan of Treatment Not on file documented as of this encounter Visit Diagnoses Not on filedocumented in this encounter
--- OUTSIDE RECORDS SUMMARY | 2025-04-09 12:41 | XMS_ITS | Referral Summary ---
Author Organization [facility] Address [address] [place] [address] Care Team Providers Care Chief Environmental Commitment Officer Name Role Phone Unavailable Primary Care Provider [...]
--- OUTSIDE RECORDS SUMMARY | 2025-04-09 12:41 | XMS_ITS | Encounter Summary ---
Author Organization [employer] Address [address] [place] [address] Care Team Providers Care Manager Wound Care Name Role Phone Unavailable Primary Care Provider Unavailabl e Encounter Details Date Type Department Care Team (Late st Contact Info) Description 12/14/2018 Transcribed Document [facility] [place] [address] Helen Agee MD [address] [place], [place] [address] Social History Tobacco Use Types Packs/Day Years Used Date Smoking Tobacco: Never Assessed Comments Unknown Sex and Gender Information Value Date Recorded Sex Assigned at Not on file Legal Sex Female 2:04 PM CDT Gender Identity Not on file Sexual Orientation Not on file documented as of this encounter Miscellaneous Notes * Cerner Conversion Note - Helen Agee MD - 12/14/2018 6:20 PM CLINICAL ENGINEER Patient Education Materials Follows: Laminectomy, Care After [...] and water are not available, use hand pipe line walker. ? Change your dressing as told by [...] or a bad smell. Medicines ??? Take xdti-ibv-vgatava and prescription medicines only as told by [...] urine clear or pale yellow. ? Take dpem-din-afdsmza or prescription medicines. ? Eat foods that [...] 04/21/2006 Document Revised: 05/18/2017 Document Reviewed: 03/19/2017 [employer] Interactive Patient Education ? 2017 [employer] Pharmacology General Anesthesia, Adult, Care After [...] activities are safe for you. ??? Take dufq-jgd-xewyehv and prescription medicines only as told by [...] 01/08/2002 Document Revised: 03/06/2017 Document Reviewed: 09/15/2016 ElseKiva Systems Interactive Patient Education ? 2017 [employer] documented in this encounter Plan of Treatment Not on file documented as of this encounter Visit Diagnoses Not on filedocumented in this encounter
== END 2025-04-08 23:59 | disposition home or self-care (01) ==
LOC: LAB.DROPOF 04-09 12:39
PROVIDERS: PCP Family Medicine; Visit Provider Family Medicine
DX: J44.9 Chronic obstructive pulmonary disease, unspecified (principal); R79.89 Other specified abnormal findings of blood chemistry; Z86.79 Personal history of other diseases of the circulatory system
CPT/HCPCS: 80053; 84443; 85025

== ENCOUNTER 2025-06-29 11:35 | Emergency (ER) | payer MEDICARE, SELFPAY ==
[2025-06-29 11:42] VITALS: BP 176/75; PULSE 60; O2SAT 94
--- OUTSIDE RECORDS SUMMARY | 2025-06-29 11:43 | XMS_ITS | Encounter Summary ---
Author Organization [employer] ([place], [place], [place], [place]) Address [address] [place] [address] Care Team Providers Care Gym Attendant Name Role Phone Unavailable Primary Care Provider Unavailabl e Encounter Details Date Type Department Care Team (Late st Contact Info) Description 12/14/2018 Transcribed Document [facility] [place] [facility] [place] [address] ProviderHelen MD [address] [place] [id number] Social History Tobacco Use Types Packs/Day Years Used Date Smoking Tobacco: Never Assessed Comments Unknown Sex and Gender Information Value Date Recorded Sex Assigned at Not on file Legal Sex Female 2:04 PM CDT Gender Identity Not on file Sexual Orientation Not on file documented as of this encounter Miscellaneous Notes * Cerner Conversion Note - Historical ProviderMD - 12/14/2018 6:18 PM ECLECTIC DOCTOR Nursing Discharge Summary Entered On: 12/14/2018 18:18 [...] 12/14/2018 18:18 EST Electronically signed by [facility] Conversion Java User Interface Developer [employer] at 02/02/2023 12:18 PM CDT documented in this encounter Plan of Treatment Not on file documented as of this encounter Visit Diagnoses Not on filedocumented in this encounter
--- OUTSIDE RECORDS SUMMARY | 2025-06-29 11:43 | XMS_ITS | Clinical Summary ---
Author Organization [employer] [facility] ([place], [place], [place], [place]) Address [address] [place] [address] Care Team Providers Care Casing Tester Name Role Phone Unavailable Primary Care Provider [...]
--- OUTSIDE RECORDS SUMMARY | 2025-06-29 11:43 | XMS_ITS | Encounter Summary ---
Author Organization [employer] ([place], [place], [place], [place]) Address [address] [place] [address] Care Team Providers Care Drama Critic Name Role Phone Unavailable Primary Care Provider Unavailabl e Encounter Details Date Type Department Care Team (Late st Contact Info) Description 12/14/2018 Transcribed Document [facility] [place] Medicine [facility] [place] [address] Helen Agee MD [address] [place], [place] [id number] Social History Tobacco Use Types Packs/Day Years Used Date Smoking Tobacco: Never Assessed Comments Unknown Sex and Gender Information Value Date Recorded Sex Assigned at Not on file Legal Sex Female 2:04 PM CDT Gender Identity Not on file Sexual Orientation Not on file documented as of this encounter Miscellaneous Notes * Cerner Conversion Note - Helen Agee MD - 12/14/2018 6:20 PM INFORMATICS DEVELOPER Patient Education Materials Follows: Laminectomy, Care After [...] and water are not available, use hand boiling house oiler. ? Change your dressing as told by [...] or a bad smell. Medicines ??? Take cwnp-uet-peqaowk and prescription medicines only as told by [...] urine clear or pale yellow. ? Take jxag-syv-isdoppt or prescription medicines. ? Eat foods that [...] 04/21/2006 Document Revised: 05/18/2017 Document Reviewed: 03/19/2017 Easy[employer]osis Interactive Patient Education ? 2017 Easy[employer] Inc. Pharmacology General Anesthesia, Adult, Care After [...] activities are safe for you. ??? Take golj-uiy-iqbcqro and prescription medicines only as told by [...] 01/08/2002 Document Revised: 03/06/2017 Document Reviewed: 09/15/2016 Elsevier Interactive Patient Education ? 2017 Elsevier Inc. documented in this encounter Plan of Treatment Not on file documented as of this encounter Visit Diagnoses Not on filedocumented in this encounter
--- OUTSIDE RECORDS SUMMARY | 2025-06-29 11:43 | XMS_ITS | Encounter Summary ---
Author Organization [facility] [place] [address] Care Team Providers Care Silviculture Teacher Name Role Phone Riley Ogden MD Unavailable [phone] Ramonita Anguiano MD Unavailable [phone] Nabil Gilbert MD Primary Care Provider [phone] Encounter Details Date Type Department Care Team (Late st Contact Info) Description 04/26/2022 Lab Requisition [facility] [place] [address] Abnormal finding of blood chemistry, [...] [facility] Platelet 136(L) 155 - 369 x10(3)/[facility] 04/26/2022 9:55 PM EDT [facility] MPV 10.1 8.8 - 12.5 fL 04/26/2022 9:55 PM EDT [facility] Blood VENOUS BLOOD / Unknown 04/26/2022 11:30 AM EDT 04/26/2022 9:30 PM EDT us Nabil Gilbert MD HEMATOLOGY ORDERABLES Fin al Result [facility] [address] [facility] , [place] [address] documented in this encounter Visit Diagnoses Diagnosis Abnormal finding of blood chemistry, unspecified documented in this encounter Additional Health Concerns Assessment Noted Time A fall risk assessment has been complete d for the patient 12/11/2017 7:56 AM EST documented as of this encounter Care Teams Silviculture Teacher Relationship Specialty Start Date End Date Nabil Gilbert MD [address] [facility] [address] [place] [address] PCP - General Family Medicine 12/29/17 Riley Ogden MD [address] [facility] [place] [address] Consulting Physician Obstetrics & Gynecology-Gynecologic Oncology 12/22/17 Ramonita Anguiano MD [address] [facility] [place] [address] Referring Physician Obstetrics & Gynecology 12/21/17 documented as of this encounter
--- OUTSIDE RECORDS SUMMARY | 2025-06-29 11:43 | XMS_ITS | Referral Summary ---
Author Organization [employer] [facility] ([place], [place], [place], [place]) Address [address] [place] [address] Care Team Providers Care Pharmaceutical Operator Name Role Phone Unavailable Primary Care [...]
--- OUTSIDE RECORDS SUMMARY | 2025-06-29 11:43 | XMS_ITS | Encounter Summary ---
Author Organization [employer] ([place], [place], [place], [place]) Address [address] [place] [address] Care Team Providers Care Cmo Name Role Phone Unavailable Primary Care Provider Unavailabl e Encounter Details Date Type Department Care Team (Late st Contact Info) Description 12/14/2018 Transcribed Document [facility] [place] [address] [place] [address] ProviderHelen MD [address], [place] [id number] Social History Tobacco Use Types Packs/Day Years Used Date Smoking Tobacco: Never Assessed Comments Unknown Sex and Gender Information Value Date Recorded Sex Assigned at Not on file Legal Sex Female 2:04 PM CDT Gender Identity Not on file Sexual Orientation Not on file documented as of this encounter Miscellaneous Notes * Cerner Conversion Note - Historical ProviderMD - 12/14/2018 3:38 PM 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 Name: BERNICE NAVARRETE Hiram LangfordB./Sex: 1945 Female Med Rec #: [id number] Physician: ASHOK CHENG MD-SNU Financial #: [id number] Pt. Type: O Room/Bed: Admit/Disch: 12/14/18 11:04:00 - Institution: [facility] IntraOp Case Attendance Entry 1 Entry 2 Entry 3 Case Attendee ASHOK CHENG WASSON, SANDRA D, RN RENEE, BOBBY, PA-C MD-SNU Role Performed Surgeon/Proceduralist, Heading Repairer, First Physician autopsy assistant First Time In 12/14/18 15:13:00 12/14/18 15:13:00 12/14/18 15:13:00 Time Out 12/14/18 16:23:00 12/14/18 16:23:00 12/14/18 16:23:00 Procedure Lumbar Laminectomy(Left) Lumbar Laminectomy(Left) Lumbar Laminectomy(Left) Other Attendee Superficial Wound Closed By: Last Modified By: ISAÍAS RINCON, RN ISAÍAS RINCON, RN ISAÍAS RINCON, RN 12/14/18 16:23:11 12/14/18 16:23:11 12/14/18 16:23:11 Entry 4 Entry 5 Entry 6 Case Attendee IGGY EAVNS LARRY B, WIRE STRANDER LYLE FIGUEROA MD Role Performed Scrub, First WIRE STRANDER/Nurse Leather Goods I Assembler Anesthesiologist of Record Time In 12/14/18 15:13:00 12/14/18 15:13:00 12/14/18 15:13:00 Time Out 12/14/18 16:23:00 12/14/18 16:04:00 12/14/18 16:23:00 Procedure Lumbar Laminectomy(Left) Lumbar Laminectomy(Left) Lumbar Laminectomy(Left) Other Attendee Superficial Wound Closed By: Last Modified By: ISAÍAS RINCON, RN ISAÍAS RINCON, RN ISAÍAS RINCON, RN 12/14/18 16:23:11 12/14/18 16:23:11 12/14/18 16:23:11 Entry 7 Entry 8 Case Attendee Kendy Raymond SIMPSON, KRISTEN, WIRE STRANDER Diagnostic Roller Inspector And Mender Role Performed Silk Screen Processor WIRE STRANDER/Nurse Leather Goods I Assembler Time In 12/14/18 15:13:00 12/14/18 16:04:00 Time Out 12/14/18 16:23:00 12/14/18 16:23:00 Procedure Lumbar Laminectomy(Left) Lumbar Laminectomy(Left) Other Attendee Superficial Wound Closed By: Last Modified By: ISAÍAS RINCON, RN ISAÍAS RINCON, RN 12/14/18 16:23:11 12/14/18 16:23:11 [facility] IntraOp Case Attendance Audit 12/14/18 16:23:11 Grey Tender: WASSONSY Modifier: WASSONSY 1 <+> Time Out [...] 8 <*> Procedure Lumbar Laminectomy(Left) 12/14/18 16:05:58 Grey Tender: WASSONSY Modifier: WASSONSY 1 <*> Procedure Lumbar [...] Time In <+> 8 Procedure 12/14/18 15:35:50 Grey Tender: WASSONSY Modifier: WASSONSY 1 <+> Time In [...] Role Performed <+> 7 Procedure 12/14/18 14:55:16 Grey Tender: WASSONSY Modifier: WASSONSY <+> 4 Case Attendee <+> 4 Role Performed <+> 4 Procedure <+> 5 Case Attendee <+> 5 Role Performed <+> 5 Procedure [facility] IntraOp Case Times Entry 1 Patient In Room Time 12/14/18 15:13:00 Out Room Time 12/14/18 16:23:00 Anesthesia Start Time 12/14/18 15:13:00 Stop Time 12/14/18 16:23:00 Surgery / Procedure Times Start Time 12/14/18 15:38:00 Stop Time 12/14/18 16:13:00 Last Modified By: ISAÍAS RINCON RN 12/14/18 16:23:07 [facility] IntraOp Case Times Audit 12/14/18 16:23:07 Grey Tender: WASSONSY Modifier: WASSONSY <+> 1 Out Room Time <+> 1 Stop Time 12/14/18 16:13:39 Grey Tender: WASSONSY Modifier: WASSONSY <+> 1 Stop Time 12/14/18 15:38:29 Grey Tender: WASSONSY Modifier: WASSONSY <+> 1 Start Time [facility] IntraOp Cautery Entry 1 Entry 2 ESU Identification Cautery Type Monopolar ESU BiPolar ESU Cautery Type Comments ID Number [id number] ID Type Hospital Number Hospital Number Cautery [...] SANDRA D, RN 12/14/18 15:40:53 12/14/18 15:40:53 [facility] IntraOp Communication Entry 1 Communication To Family/Significant other Comment START Communication By ISAÍAS RINCON RN Date and Time 12/14/18 15:39:00 Last Modified By: ISAÍAS RINCON RN 12/14/18 15:39:44 [facility] IntraOp Counts Verification Entry 1 Procedure Lumbar Laminectomy(Left) Count Info Count Type Sponge, Sharps, Miscellaneous Counts Verification Baseline/pre-procedure Sequence Count Results Not Applicable Counts Performed By Count Performed By IGGY EVANS (Scrub) Count Performed By ISAÍAS RINCON RN (RN) Last Modified By: ISAÍAS RINCON RN 12/14/18 15:40:01 [facility] IntraOp Counts Final Entry 1 Procedure Lumbar Laminectomy(Left) Final Count Info Count Type Sponge, Sharps, Miscellaneous Counts Verification Skin Closure/end of Sequence procedure Count Results Correct, surgeon notified Counts Performed By Count Performed By IGGY EVANS (Scrub) Count Performed By ISAÍAS RINCON RN (RN) Last Modified By: ISAÍAS RINCON RN 12/14/18 16:05:33 [facility] IntraOp Departure from OR Entry 1 Integumentary Assessment Integumentary WDL Assessment WDL Transfer/Handoff Transfer to PACU Phase I Handoff Method Phone call Handoff Reported to VIDYA VALENTINO RN Post-op Transport Stretcher/Gurney Via Patient Transport BOBBY DURAN PA-C, Accompanied by SAULO ABDI CRNA Last Modified By: ISAÍAS RINCON RN 12/14/18 16:06:24 [facility] IntraOp Dressing and Packing Entry 1 Type Dressing Location OP SITE Wound Dressing Item Steristrip, Other Applied By BOBBY DURAN PA-C Other Comments MASTISOL, STERISTRIPS, COVADERM Last Modified By: ISAÍAS RINCON RN 12/14/18 15:50:21 [facility] IntraOp Fire Risk Assessment Entry 1 Fire [...] Modified By: ISAÍAS RINCON RN 12/14/18 15:42:21 [facility] IntraOp General Case Technical Artist 1 Case Information OR OR 16 [facility] Case Level 1 Room Verified Yes Wound Class I - Clean Specialty SN Neurosurgery Anesthesia Type General ASA Class 3 Diagnosis Preop Diagnosis LUMBAR RADICULOPATHY Postop Same As Preop No Postop Diagnosis SEE MD POST OP NOTE Last Modified By: ISAÍAS RINCON RN 12/14/18 15:41:01 [facility] IntraOp General Case Data Audit 12/14/18 15:41:01 Grey Tender: RANJAN Modifier: RANJAN <+> 1 ASA Class <+> 1 Room Verified [facility] IntraOp Intraoperative Assessment Entry 1 Handoff Method [...] Modified By: ISAÍAS RINCON RN 12/14/18 15:42:38 [facility] IntraOp Intraoperative Equipment Entry 1 Type Equipment Equipment Equipment Krzysztof Suction System ID Number [id number] Setting 180 MM HG Intraop Monitoring Electrocardiogram Three lead placement (ECG) Electrode Placement Blood Pressure Non-Invasive BP Device Source Antiembolic Devices Antiembolic Devices Sequential compression device, knee high Antiembolic Device Bilateral Location Antiembolic Device [id number] ID Number Scopes Photo/Video Documentation Photo No Video No Last Modified By: ISAÍAS RINCON RN 12/14/18 15:43:35 [facility] IntraOp Medication Admin Entry 1 Entry 2 Entry 3 Medication/Irrigant lidocaine 1% w/ Bacitracin 50,00units SPNG SURGFOAM epinephrine 1:100,000 powder vial [id number] 30ml vial - [id number] Combo Med List Time Administered Route of LOCAL ADDED TO NS IRRIGATION TOPICAL Administration Dose Dose 10 33436 1 Unit of Measure ml units pkt Volume Administered By ASHOK CHEGN TUTT, MATTHEW PAIGE, TUTT, MATTHEW PAIGE, MD-SNU MD-PONCE SALAZAR-SNAlee Procedure Irrigation Irrigant Volume In Irrigant Volume Out Last Modified By: ISAÍAS RINCON, ISAÍAS SAGE, RN ISAÍAS RINCON RN 12/14/18 15:48:18 12/14/18 15:48:18 12/14/18 15:48:18 Entry 4 Entry 5 Medication/Irrigant thrombin 5000units Kenalog 40mg/ml - topical powder - [id number] Combo Med List Time Administered Route of TOPICAL TOPICAL Administration Dose Dose 5000 40 Unit of Measure units mg Volume Administered By ASHOK CHENG TUTT, MATTHEW PAIGE, MD-SNU MD-SNU Procedure Irrigation Irrigant Volume In Irrigant Volume Out Last Modified By: ISAÍAS RINCON, RN ISAÍAS RINCON RN 12/14/18 15:48:18 12/14/18 16:00:27 General Comments: DR CHENG'S LOCAL COMBO: KENALOG 40 MG, TRAMADOL 15 MG, MARCAINE 0.25% 30 ML [facility] IntraOp Medication Admin Audit 12/14/18 16:00:27 Grey Tender: RANJAN Modifier: WASSONSY <+> 5 Medication/Irrigant <+> 5 Route of Administration <+> 5 Administered By <+> 5 Dose <+> 5 Unit of Measure [facility] IntraOp Patient Positioning Entry 1 Procedure Lumbar [...] RINCON, RN, BOBBY DURAN PA-C, ALEX BLACK, WIRE STRANDER Position Verified Positioning Yes Verified by Anesthesia Positioning Yes Verified by Surgeon Last Modified By: ISAÍAS RINCON RN 12/14/18 15:45:21 [facility] IntraOp Sign In Entry 1 Patient, Site, [...] Modified By: ISAÍAS RINCON RN 12/14/18 15:43:51 [facility] IntraOp Sign Out Entry 1 RN Confirmation [...] Checklist Yes Elements Complete? RN Sign Out MCKENZIE, ISAÍAS D, RN Signature RN Sign Out 12/14/18 16:23:00 [...] Modified By: ISAÍAS RINCON RN 12/14/18 16:23:18 [facility] IntraOp Sign Out Audit 12/14/18 16:23:18 Grey Tender: WASSONSY Modifier: WASSONSY <+> 1 RN Sign Out Signature Date/Time [facility] IntraOp Skin Prep Entry 1 Procedure Lumbar Laminectomy(Left) Prescribed Yes Pre-Surgical Prep Completed Prep Area BACK Intraop Prep Integumentary WDL Assessment WDL Prep Agents Alcohol, Chlorhexadine gluconate, DuraPrep Prep by ASHOK CHENG MD-SNU Hair Removal Methods No hair removal performed Last Modified By: ISAÍAS RINCON RN 12/14/18 15:44:15 [facility] IntraOp Surgical Procedures Entry 1 Procedure Lumbar Laminectomy Modifiers Left Additional (LT L4-5 DECOMPRESSION, Procedure MIS LAMINECTOMY Description Primary Procedure Yes Primary Surgeon ASHOK CHENG MD-SNU Start 12/14/18 15:38:00 Stop 12/14/18 16:13:00 Anesthesia Type General Specialty SN Neurosurgery Wound Class I - Clean Last Modified By: ISAÍAS RINCON, RN 12/14/18 16:13:43 General Comments: CLINDAMYCIN 900 MG IV PER ANESTHESIA [facility] IntraOp Surgical Procedures Audit 12/14/18 16:13:43 Grey Tender: WASSONSY Modifier: WASSONSY <+> 1 Stop 12/14/18 15:48:46 Grey Tender: WASSONSY Modifier: WASSONSY 1 <*> Primary Surgeon [...] <*> Anesthesia Type 1 <*> Anesthesia Type [facility] IntraOp Temp Regulation Devices Entry 1 Temp Regulation Temperature Warm blankets, Room Regulation Device temperature, Forced Air Warming device Temperature 46330 Regulation Device Serial/Unit Number Temperature Upper body Regulation Site Temperature Device 43 C Setting Temperature ALEX BLACK Dmitriy, WIRE STRANDER Regulation Device Applied by Last Modified By: ISAÍAS RINCON RN 12/14/18 15:49:45 [facility] IntraOP Time Out Entry 1 Procedure to [...] Modified By: ISAÍAS RINCON RN 12/14/18 15:38:26 [facility] IntraOp X-Ray and Images Entry 1 X-Ray/Imaging Type Fluoroscopy Fluoroscopy Type C-Arm Site OP SITE In House Counsel Name Kendy Raymond, Diagnostic Roller Inspector And Mender Last Modified By: ISAÍAS RINCON RN 12/14/18 15:49:16 Case Comments <None> Finalized By: TOSHIA ROSARIO Document Signatures Signed By: ISAÍAS RINCON RN 12/14/18 16:23 TOSHIA ROSARIO 12/16/18 13:56 Unfinalized History Date/Time Username Reason for Unfinalizing Freetext Reason for Unfinalizing 12/16/18 13:55 WATTSDR Correct Billing Electronically signed by [facility] Conversion Supervisor Claims Cerner at 02/02/2023 12:32 PM CDT documented in this encounter Plan of Treatment Not on file documented as of this encounter Visit Diagnoses Not on filedocumented in this encounter
--- OUTSIDE RECORDS SUMMARY | 2025-06-29 11:43 | XMS_ITS | Encounter Summary ---
Author Organization [employer] ([place], [place], [place], [place]) Address [address] [place] [address] Care Team Providers Care Education Rn Name Role Phone Unavailable Primary Care Provider Unavailabl e Encounter Details Date Type Department Care Team (Late st Contact Info) Description 12/14/2018 Transcribed Document [facility] [place] Family Medicine [facility] [place] [address] ProviderHelen MD [address] [place] [id number] Social History Tobacco Use Types Packs/Day Years Used Date Smoking Tobacco: Never Assessed Comments Unknown Sex and Gender Information Value Date Recorded Sex Assigned at Not on file Legal Sex Female 2:04 PM CDT Gender Identity Not on file Sexual Orientation Not on file documented as of this encounter Miscellaneous Notes * Cerner Conversion Note - Helen ProviderMD - 12/14/2018 5:54 PM 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 ? Change your dressing as told by [...] or a bad smell. Medicines ??? Take fhfp-hkt-totepby and prescription medicines only as told by [...] urine clear or pale yellow. ? Take smou-niw-fuwoqyw or prescription medicines. ? Eat foods that [...] 04/21/2006 Document Revised: 05/18/2017 Document Reviewed: 03/19/2017 [employer] Interactive Patient Education ? 2017 [employer]. General Anesthesia, Adult, Care After These instructions [...] activities are safe for you. ??? Take tjsn-zqo-qtqxfov and prescription medicines only as told by [...] 01/08/2002 Document Revised: 03/06/2017 Document Reviewed: 09/15/2016 [employer] Interactive Patient Education ? 2017 [employer]. Medication Leaflets: acetaminophen and hydrocodone (a SEET a MIN oh fen and long droe KOE done) Hycet, Lorcet, [place], Verdrocet, Vicodin, Xodol, Zamicet What is the [...] may report side effects to FDA at 0-497-XTK-9959. What other drugs will affect acetaminophen and [...] affect acetaminophen and hydrocodone, including prescription and wgjh-kxg-lvigbjj medicines, vitamins, and herbal products. Not all [...] to ensure that the information provided by [employer]. ('[employer]') is accurate, up-to-date, and complete, but no guarantee is made to that effect. Drug information contained herein may be time sensitive. [employer] information has been compiled for use by healthcare practitioners and consumers in the [place] and therefore [employer] does not warrant that uses outside of the [place] are appropriate, unless specifically indicated otherwise. [employer] drug information does not endorse drugs, diagnose patients or recommend therapy. [employer] drug information is an informational resource designed [...] effective or appropriate for any given patient. [employer] does not assume any responsibility for any aspect of healthcare administered with the aid of information [employer] provides. The information contained herein is not intended to cover all possible uses, directions, precautions, warnings, drug interactions, allergic reactions, or adverse effects. If you have questions about the drugs you are taking, check with your doctor, nurse or pharmacist. Copyright 6314-0124 [employer]. Version: 15.02. Revision Date: 08/20/2018. cyclobenzaprine (benedicto [...] may report side effects to FDA at 6-673-CEY-1333. What other drugs will affect cyclobenzaprine? Using [...] drugs may affect cyclobenzaprine, including prescription and qtqg-hyc-evgvzpd medicines, vitamins, and herbal products. Not all [...] to ensure that the information provided by [employer] ('[employer]') is accurate, up-to-date, and complete, but no guarantee is made to that effect. Drug information contained herein may be time sensitive. [employer] information has been compiled for use by healthcare practitioners and consumers in the [place] and therefore [employer] does not warrant that uses outside of the [place] are appropriate, unless specifically indicated otherwise. [employer] drug information does not endorse drugs, diagnose patients or recommend therapy. [employer] drug information is an informational resource designed [...] effective or appropriate for any given patient. [employer] does not assume any responsibility for any aspect of healthcare administered with the aid of information [employer] provides. The information contained herein is not intended to cover all possible uses, directions, precautions, warnings, drug interactions, allergic reactions, or adverse effects. If you have questions about the drugs you are taking, check with your doctor, nurse or pharmacist. Copyright 0056-8502 [employer]. Version: 5.01. Revision Date: 07/11/2018. CIGARETTE SMOKING: The facts are clear, cigarette smoking will shorten your life. Smoking can cause many illnesses along the way. As a healthcare provider, we recommend that you stop smoking. Assistance with quitting is available by contacting 1-799-OKOW-NOW. This is a free resource providing counseling, [...] Be sure to sign up for the [employer] patient portal, which gives you 08/05 access to your medical information ??? including these discharge instructions ??? using your computer, smartphone, or tablet. Just go to [employer] to get started. Questions? Call . [facility] would like to thank you for allowing us to assist you with your healthcare needs. ROSALBA Parker CATHERINE M, (or outbound call center representative) have received the above patient education materials/instructions and have verbalized understanding: Patient Signature _ Date/Time Patient Beverage Distiller Signature (if needed) Date/Time Clinician/Hospital Beverage Distiller Signature (if needed) Date/Time Electronically signed by Evette Tafoya Conversion Airport Operations Coordinator Beata at 02/02/2023 12:29 PM CDT documented in this encounter Plan of Treatment Not on file documented as of this encounter Visit Diagnoses Not on filedocumented in this encounter
--- OUTSIDE RECORDS SUMMARY | 2025-06-29 11:43 | XMS_ITS | Encounter Summary ---
Author Organization [employer] ([place], [place], [place], [place]) Address [address] [place] [address] Care Team Providers Care Chemical Operations Specialist Name Role Phone Unavailable Primary Care Provider Unavailabl e Encounter Details Date Type Department Care Team (Late st Contact Info) Description 12/14/2018 Transcribed Document [facility] [place] [facility] [place] [address] ProviderHelen MD [address] [place] [address] Social History Tobacco Use Types Packs/Day Years Used Date Smoking Tobacco: Never Assessed Comments Unknown Sex and Gender Information Value Date Recorded Sex Assigned at Not on file Legal Sex Female 2:04 PM CDT Gender Identity Not on file Sexual Orientation Not on file documented as of this encounter Miscellaneous Notes * Cerner Conversion Note - Helen ProviderMD - 12/14/2018 6:20 PM MEMBERSHIP SECRETARY [address] [address] Patient Copy Patient Information: Name: BERNICE NAVARRETE Current Date: 12/14/2018 18:20:06 : 1945 Patient Address: [address] [place] [address] Patient Attending Physician: ASHOK CHENG MD-[facility] Primary Care Provider: MUSTAPHA EASTMAN MD-[facility] Primary Care Provider Discharge Diagnosis: Weight on Admission: 167 lb, 8 oz Comment: Follow-up Instructions: With: Address: When: ASHOK CHENG [address] [facility], [address] [place] [address] Business (1) 3:15 PM Comments: Appointment has been [...] Care after Discharge Comment: Follow instructionsout from [facility]. Immunizations Documented During Stay: No Immunizations [...] and water are not available, use hand pattern finisher. ? Change your dressing as told by [...] or a bad smell. Medicines ??? Take vqqj-qew-ekdneqe and prescription medicines only as told by [...] urine clear or pale yellow. ? Take heve-uvt-wvkciyl or prescription medicines. ? Eat foods that [...] 04/21/2006 Document Revised: 05/18/2017 Document Reviewed: 03/19/2017 [employer] Interactive Patient Education ? 2017 [employer]. General Anesthesia, Adult, Care After These [...] activities are safe for you. ??? Take wdqu-fjp-drwcwyc and prescription medicines only as told by [...] 01/08/2002 Document Revised: 03/06/2017 Document Reviewed: 09/15/2016 [employer] Interactive Patient Education ? 2017 [employer] Medication Leaflets: acetaminophen and hydrocodone (a SEET a MIN oh fen and long droe KOE done) Hycet, Lorcet, Krebs, Verdrocet, Vicodin, Xodol, Zamicet What is the [...] may report side effects to FDA at 3-800-MJJ-3175. What other drugs will affect acetaminophen and [...] affect acetaminophen and hydrocodone, including prescription and aete-gmt-gftqrlr medicines, vitamins, and herbal products. Not all [...] to ensure that the information provided by [employer]. ('[employer]') is accurate, up-to-date, and complete, but no guarantee is made to that effect. Drug information contained herein may be time sensitive. [employer] information has been compiled for use by healthcare practitioners and consumers in the [place] and therefore [employer] does not warrant that uses outside of the [place] are appropriate, unless specifically indicated otherwise. [employer]'s drug information does not endorse drugs, diagnose patients or recommend therapy. [employer] drug information is an informational resource designed [...] effective or appropriate for any given patient. [employer] does not assume any responsibility for any aspect of healthcare administered with the aid of information [employer] provides. The information contained herein is not intended to cover all possible uses, directions, precautions, warnings, drug interactions, allergic reactions, or adverse effects. If you have questions about the drugs you are taking, check with your doctor, nurse or pharmacist. Copyright 4187-4364 [employer]. Version: 15.02. Revision Date: 08/20/2018. cyclobenzaprine (benedicto [...] may report side effects to FDA at 8-457-FPF-9619. What other drugs will affect cyclobenzaprine? Using [...] drugs may affect cyclobenzaprine, including prescription and rwzd-oic-fteaugt medicines, vitamins, and herbal products. Not all [...] to ensure that the information provided by [employer]. ('[employer]') is accurate, up-to-date, and complete, but no guarantee is made to that effect. Drug information contained herein may be time sensitive. [employer] information has been compiled for use by healthcare practitioners and consumers in the [place] and therefore [employer] does not warrant that uses outside of the [place] are appropriate, unless specifically indicated otherwise. [employer] drug information does not endorse drugs, diagnose patients or recommend therapy. [employer] drug information is an informational resource designed [...] effective or appropriate for any given patient. [facility] does not assume any responsibility for any aspect of healthcare administered with the aid of information [facility] provides. The information contained herein is not intended to cover all possible uses, directions, precautions, warnings, drug interactions, allergic reactions, or adverse effects. If you have questions about the drugs you are taking, check with your doctor, nurse or pharmacist. Copyright 5422-9472 [employer]. Version: 5.01. Revision Date: 07/11/2018. CIGARETTE SMOKING: The facts are clear, cigarette smoking will shorten your life. Smoking can cause many illnesses along the way. As a healthcare provider, we recommend that you stop smoking. Assistance with quitting is available by contacting 6-408-UXOWAdamas PharmaceuticalsNOW. This is a free resource providing counseling, [...] Be sure to sign up for the [employer] patient portal, which gives you 08/05 access to your medical information ??? including these discharge instructions ??? using your computer, smartphone, or tablet. Just go to [employer] to get started. Questions? Call . [facility] would like to thank you for allowing us to assist you with your healthcare needs. ROSALBA Parker CATHERINE M, (or account service representative) have received the above patient education materials/instructions and have verbalized understanding: Patient Signature _ Date/Time Patient Nuclear Spectroscopist Signature (if needed) Date/Time Clinician/Hospital Nuclear Spectroscopist Signature (if needed) Date/Time documented in this encounter Plan of Treatment Not on file documented as of this encounter Visit Diagnoses Not on filedocumented in this encounter
--- OUTSIDE RECORDS SUMMARY | 2025-06-29 11:43 | XMS_ITS | Patient Health Record ---
Author Organization [facility] Address [address] [id number] Care Team Providers Care Technology Teacher Name Role Phone Jame Gilbert Primary Care [...] MORNING AND TAKE 1/2 TABLET IN THE EVENING; Duration: 90 Active predniSONE 5 MG 1 tab(s) orally ever y other day 08/17/2021 Active Benzonatate 100 MG 1 cap(s) orally 3 ti mes a day prn; Duration: 7 days 11/12/2021 Active traZODone HCl 50 MG 1 tab(s) orally at bedtime; Duration: 90 days Active Losartan Potassium 50 MG 1 tab(s) orally bid Active Melatonin 5 MG 2 tabs orally once a day (at bedtime) Active Clopidogrel Bisulfate 75 MG 1 tab(s) ora lly once a day Active Vitamin D3 50 MCG (1999 UT) 1 cap(s) ora lly bid; Duration: 90 days 09/18/2016 Active Omeprazole 40 MG 1 cap(s) orally once a day; Duration: 90 days 08/18/2020 Active Albuterol Sulfate HFA 108 (90 Base) MCG/ACT 2 puff(s) inhaled every 6 hours and prn SOB or wheezing; Duration: 30 day(s) 04/15/2021 Active Promethazine-DM 6.25-15 MG/5ML 5 mL orally every 6 hours as needed for cough 09/24/2021 Active Ferrous Sulfate 325 (65 Fe) MG 1 tab(s) orally bid 05/04/2021 Active HYDROcodone-Acetaminophen 5-325 MG 1 tab(s) orally tid prn 09/24/2021 Acti ve oxyCODONE-Acetaminophen 5-325 MG 1 tab(s) Orally every 6 hrs prn 01/27/2024 Active Sertraline HCl 100 MG 1 tab(s) orally on Active Immunizations Vaccine Route Administration Date Status [...] Problem Status W/U Status Risk Notes Problem Essential hypertension (97995417) Essential (primary) hypertension (I10) Active confirmed Problem Low back pain (572615405) Low back pain (M54.5) Active confirmed Problem Pain of right shoulder region (finding) (2665518008) Pain in right shoulder (M25.511) Active confirmed Problem Vitamin D deficiency (02464753) Vitamin D deficiency (E55.9) Active confirmed Problem Essential hypertension (16855207) Essential hypertension (I10) Active confirmed Problem Cardiac dysrhythmia (515931315) Cardiac dysrhythmia (I49.9) Active confirmed Problem Liver enzymes abnormal (319278326) Abnormal liver enzymes (R74.8) Active confirmed Problem Memory loss (89418523) Memory loss (R41.3) Active confirmed Problem Lumbar spinal stenosis (62884161) Lumbar spinal stenosis (M48.06) Active confirmed Problem Corticoadrenal insufficiency (112779615) 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) Active confirmed Problem Mixed hyperlipidemia (011820532) Mixed hyperlipidemia (E78.2) Active confirmed Problem Chronic pain (54219254) Other chronic pain (G89.29) Active confirmed Problem Cardiac arrhythmia (984746186) Other specified cardiac arrhythmias (I49.8) Active confirmed Problem Occlusion and stenosis of multiple and bilateral cerebral arteries (114225913) Occlusion and stenosis of bilateral carotid arteries (I65.23) Active confirmed Problem Shoulder joint pain (288067556) Pain in left shoulder (M25.512) Active confirmed Problem Age-related osteoporosis (770707691) Age-related osteoporosis without current pathological fracture (M81.0) Active confirmed Problem Contusion of right foot (42425499352420289) Contusion of right foot, initial encounter (S90.31XA) Active confirmed Problem Hysterectomy (707707076) Acquired absence of both cervix and uterus (Z90.710) Active confirmed Problem Presence of othe r vascular implants and grafts (Z95.828) Active confirmed Problem Arteriosclerotic vascular disease (27488102) Arteriosclerotic cardiovascular disease (I25.10) Active confirmed Problem Adrenal insufficiency (247212733) Adrenal insufficiency (E27.40) Active confirmed Problem Right foot drop (224518438967851) Foot drop, right (M21.371) Active confirmed Problem Mixed anxiety and depressive disorder (702460348) Anxiety associated with depression (F41.8) Active confirmed Problem New daily persistent headache (218145501121288) New daily persistent headache (G44.52) Active confirmed Problem Cardiac arrhythmia (852682277) Atrial dysrhythmia (I49.8) Active confirmed Problem Iron deficiency anemia due to chronic blood loss (026317148) Iron deficiency anemia due to chronic blood loss (D50.0) Active confirmed Problem Iron deficiency anemia (58639817) Iron deficiency anemia, unspecified iron deficiency anemia type (D50.9) Active confirmed Problem Atrial fibrillation (21201665) Atrial fibrillation, unspecified type (I48.91) Active confirmed Problem Hyperlipidaemia (00310108) Hyperlipidemia, unspecified hyperlipidemia type (E78.5) Active confirmed Problem Abnormal gait (88008223) Imbalance (R26.89) Active confirmed Problem Stenosis of right carotid artery (450719860077801) Stenosis of right carotid artery (I65.21) Active confirmed Problem Osteoarthritis (330822490) Osteoarthrosis involving more than one site, but not specified as generalized (M15.9) Active confirmed Problem Esophageal reflux (839190842) Esophageal reflux (K21.9) Active confirmed Problem Chronic lung disease (760683279) Chronic lung disease (J98.4) Active confirmed Problem Abnormal liver function (96711483) Abnormal liver function (K76.89) Active confirmed Problem Postmenopausal bleeding (07565266) Post-menopausal bleeding (N95.0) Active confirmed Problem Cardiac dysrhythmia (111687741) Cardiac dysrhythmia, unspecified (I49.9) Active confirmed Problem Urinary incontinence (078893942) Urinary incontinence, unspecified type (R32) Active confirmed Problem Atherosclerotic heart disease of [place] coronary artery without angina pectoris (356046021155050) Atherosclerosis of [place] coronary artery without angina pectoris, unspecified whether [place] or transplanted heart (I25.10) Active confirmed Problem Occlusion and stenosis of multiple and bilateral cerebral arteries (399489678) Bilateral carotid artery stenosis (I65.23) Active confirmed Problem Pain of left hip joint (135456614020888) Pain of left hip joint (M25.552) Active confirmed Problem Radiculopathy (03279552) Radiculopathy affecting upper extremity (M54.10) Active confirmed Problem Hysterectomy (937157619) Status post hysterectomy (Z90.710) Active confirmed Problem Localized, primary osteoarthritis of the hand (267899699) Arthropathy of hand (M19.049) Active confirmed Problem Spinal stenosis of lumbar region (56623821) Spinal stenosis of lumbar region, unspecified whether neurogenic claudication present (M48.061) Active confirmed Problem Chronic hypoxemic respiratory failure (605361252) Chronic hypoxemic respiratory failure (J96.11) Active confirmed Problem Status post angioplasty with stent (Z95.820) Active confirmed Problem Cervical arthritis (disorder) (471920344) 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) Active confirmed Problem Shoulder joint pain (561831236) Shoulder pain, unspecified chronicity, unspecified laterality (M25.519) Active confirmed Problem Parotitis (00553316) Parotitis (K11.20) Active confirmed Problem Anemia (376337042) Acute anemia (D64.9) Active confirmed Encounters Encounter Location Date Provider Diagnosis [facility] [address] [id number] 11/15/2024 Jame Gilbert [facility] [address] [id number] 12/27/2024 Jame Gilbert Plan Of Treatment No Information Insurance Providers Payer Name Payer Address Payer Phone Subscriber Number Group Number Insured Name Patient Relationship to Insured Coverage Start Date Coverage End Date [employer] (MEDICAR E) [address] [address] [place] [phone] [id number] BERNICE NAVARRETE Self - patient is the [...]
--- OUTSIDE RECORDS SUMMARY | 2025-06-29 11:43 | XMS_ITS | Encounter Summary ---
Author Organization [employer] ([place], [place], [place], [place]) Address [address] [place] [address] Care Team Providers Care Behavioral Health Case Manager Name Role Phone Unavailable Primary Care Provider Unavailabl e Encounter Details Date Type Department Care Team (Late st Contact Info) Description 12/13/2018 Transcribed Document [facility] [place] [address] [place] [address] ProviderHelen MD [address] [place], [place] [id number] Social History Tobacco Use Types Packs/Day Years Used Date Smoking Tobacco: Never Assessed Comments Unknown Sex and Gender Information Value Date Recorded Sex Assigned at Not on file Legal Sex Female 2:04 PM CDT Gender Identity Not on file Sexual Orientation Not on file documented as of this encounter Miscellaneous Notes * Cerner Conversion Note - Historical ProviderMD - 12/13/2018 1:56 PM CLEAR COAT SPRAYER PAT Adult Entered On: 12/13/2018 14:00 EST Performed On: 12/13/2018 13:56 EST by ANDREW HINES RN Pain Assessment Pain Assessment : Initial assessment Pain Location Comment : denies pain JEWELS PURVIS RN - 12/14/2018 12:06 EST Height and Weight, Clinical Dosing Height Source : Measured Height Entry Format : [place] Height, Feet : 0 ft(Converted to: 0 cm, 0 Inch) Height, Inches : 63 Inch(Converted to: 5 ft 3 Inch, 160.02 cm) Clinical Height : 160.02 cm Weight Source : Standing scale Weight Entry Format : [place] Clinical Dosing Weight : 76.14 kg Weight, Pounds : 167.5 lb Body Surface Area (BSA) : 1.8 m2 Body Mass Index : 29.7 kg/m2 (HI) [place] Body Weight : 52 kg JEWELS PURVIS RN - 12/14/2018 12:06 EST Health Histories Smoking Status : Former smoker, quit more than 30 days ago Smokeless Tobacco Status : Never ANDRWE HINES RN - 12/13/2018 13:56 EST Social [...] 13:56 EST General Info Primary Language : Citizen Of [place] Communication Barrier : None JEWELS PURVIS RN [...]
--- OUTSIDE RECORDS SUMMARY | 2025-06-29 11:43 | XMS_ITS | Clinical Summary ---
Author Organization [facility] Address [address] [place] [address] Care Team Providers Care Group Manager Name Role Phone Nabil Gilbert MD Primary Care Provider [phone] Allergies Active Allergy Reactions Criticality Noted Date [...] ICA stenosis Overview (02/08/2019): a. Cerebral angiogram, [facility], 11/21/2014: Bilateral patent vertebral arteries with less than 50% [place] stenosis and greater than 70% LICA stenosis. b. Carotid angiogram, 12/26/2014: Advanced atherosclerotic plaque at the left carotid bifurcation equaling about 72%, nxlk-lt-yakhpzny changes of fibromuscular dysplasia involving the mid- [...] 59 05/12/2020 2:00 PM EDT Temperature 36.4 C (97.5 F) 02/09/2019 8:00 AM EDT Respiratory Rate 16 02/09/2019 10:00 AM EDT Oxygen Saturation 95% 02/09/2019 11:00 AM EDT Inhaled Oxygen Concentration - - Weight 77.3 kg (170 lb 6.4 oz) 05/12/2020 1:59 P M EDT Height 160 cm (5' 3 ) 05/12/2020 1:59 PM EDT Body Mass Index 30.19 05/12/2020 1:59 PM EDT Plan of Treatment Health Maintenance Due Date Last Done Comments DXA SCAN 1945 COLOGUARD 1988 COLON CANCER SCREENING 5 YEA R SIGMOIDOSCOPY 1988 COLONOSCOPY 1988 [address] CANCER SCREENING 1988 CT COLONOGRAPHY 1988 FECAL OCCULT BLOOD TEST 1988 FIT Testing (1 year) 1988 ZOSTER VACCINE (1 of 2) 1993 ANNUAL PHYSICAL 07/06/2017 Pneumococcal Vaccine 50+ (2 of 2 - PCV) 02/03/2018 02/03/2017 RSV Vaccine - Adults (1 - 1- dose 75+ series) 2018 LIPID PANEL 01/16/2020 01/15/2019, 04/0 11/2018, 12/19/2017, Additional history exists COVID-19 Vaccine (1 - 2023-2 5 season) 2025 INFLUENZA VACCINE 07/16/2025 07/06/2019, , 08/07/2018, Additional history exists TDAP/TD VACCINES (3 - Td or Tdap) 10/02/2028 018, 12/20/1996 Medical Devices Implanted Type Area Business Solutions Consultant Device Identifier Shelf Expiration Date Model / Serial / Lot Stent Wall Carotid Mr 5.9f [id number] 135cm - [id number] Implanted:Qty: 1 on 02/08/2019 by Dada Stevens MD at [facility] Stent [employer] [id number] / / Procedures Procedure Name Priority Date/Time Associated Diagnosis Comments LIPID PANEL Routine 01/15/2019 12:11 PM EDT Routine general medical examination at a health care facility [ICD-10-CM] from Last 3 Months or Most Recently Relevant to Health Maintenance Results * (ABNORMAL) Lipid Panel (01/15/2019 12:11 PM EDT) Total Cholesterol 156 0 - 200 mg/dL 01/15/2019 12:57 PM EDT [facility] Triglycerides 330(H) 0 - 150 mg/dL 01/15/2019 12:57 PM EDT [facility] HDL Cholesterol 38(L) 40 - 60 mg/dL 01/15/2019 12:57 PM EDT [facility] LDL Cholesterol 63 0 - 130 mg/dL 01/15/2019 12:57 PM EDT [facility] Blood Venipuncture / Unknown 01/15/2019 12:11 PM EDT 01/15/2019 12:11 PM EDT [facility] - 01/15/2019 12:57 PM EDT Cholesterol Reference Ranges: Desirable < 200 mg/dL Borderline 200-239 mg/dL High Risk > 239 mg/dL Triglyceride Reference Ranges: Normal < 150 mg/dL Borderline 150-199 mg/dL High 200-499 mg/dL Very High > 499 mg/dL HDL Reference Ranges: Low < 40 mg/dL High > 59 mg/dL LDL Reference Ranges: Optimal < 100 mg/dL Near Optimal 100-129 mg/dL Borderline 130-159 mg/dL High 160-189 mg/dL Very High > 189 mg/dL us Dada Stevens MD LAB BLOOD ORDERABLES Final Re sult [facility]
[address] [id number], from Last 3 Months or Most Recently Relevant to Health Maintenance Insurance Advance Directives Documents on File Type Date Recorded Patient Occupational Health Manager Expl anation POWER OF PRESS ASSISTANT - SCAN 12/19/2017 1:39 PM DURABLE POA [...] Of Support Discussed With: Patient Care Teams Group Manager Relationship Specialty Start Date End Date Nabil Gilbert MD [address] [place] [facility] [address] [place] [address] PCP - General 12/22/15
--- OUTSIDE RECORDS SUMMARY | 2025-06-29 11:43 | XMS_ITS | Encounter Summary ---
Author Organization [employer] ([place], [place], [place], [place]) Address [address] [place] [address] Care Team Providers Care Ip Architect Name Role Phone Unavailable Primary Care Provider Unavailabl e Encounter Details Date Type Department Care Team (Late st Contact Info) Description 12/14/2018 Transcribed Document [facility] [place] [address] [place] [address] ProviderHelen MD [address] [place], [place] [id number] Social History Tobacco Use Types Packs/Day Years Used Date Smoking Tobacco: Never Assessed Comments Unknown Sex and Gender Information Value Date Recorded Sex Assigned at Not on file Legal Sex Female 2:04 PM CDT Gender Identity Not on file Sexual Orientation Not on file documented as of this encounter Miscellaneous Notes * Cerner Conversion Note - Historical ProviderMD - 12/14/2018 3:38 PM [employer]ENTRAL AISLE [employer]IER [facility] Main OR PostOp Summary Primary Physician: ASHOK CHENG MD-[facility] Finalized Date/Time: 12/14/18 18:24:11 Pt. Name: BERNICE NAVARRETE/Sex: 1945 Female Med Rec #: [id number] Physician: ASHOK CHENG MD-[facility] Financial #: [id number] Pt. Type: O Room/Bed: Admit/Disch: 12/14/18 11:04:00 - Institution: [facility] Main OR PostOp Case Times Entry 1 In PACU II 12/14/18 18:00:00 Ready for PACU II 12/14/18 18:20:00 Discharge Discharge from PACU 12/14/18 18:25:00 II Last Modified By: Jalyn Fermin RN 12/14/18 18:23:56 [facility] Main OR PostOp Case Times Audit 12/14/18 18:23:56 Consolidation Accountant: RAMEZALR Modifier: RAMEZALR 1 <*> Discharge from PACU II 12/14/18 18:20:00 12/14/18 18:17:07 Consolidation Accountant: RAMEZALR Modifier: RAMEZALR <+> 1 Ready for [...]
--- OUTSIDE RECORDS SUMMARY | 2025-06-29 11:43 | XMS_ITS | Encounter Summary ---
Author Organization [employer] ([place], [place], [place], [place]) Address [address] [place] [address] Care Team Providers Care Infectious Disease Technician Name Role Phone Unavailable Primary Care Provider Unavailabl e Encounter Details Date Type Department Care Team (Late st Contact Info) Description 12/14/2018 Transcribed Document [facility] Neurology - [address] [facility] [address] [place] [address] Francisco Herndon MD [address] [facility] [address] [place] [id number] Social History Tobacco Use Types Packs/Day Years [...] the office by Dr. 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 She [...] carpal tunnel, cervical disc sx 1999?, hemorrhoidectomy 1979, hyterectomy 2018. Medications Inpatient Cleocin HCl, 900 mg= 50 [...]
--- OUTSIDE RECORDS SUMMARY | 2025-06-29 11:43 | XMS_ITS | Encounter Summary ---
Author Organization [employer] ([place], [place], [place], [place]) Address [address] [place] [address] Care Team Providers Care Road Driver Name Role Phone Unavailable Primary Care Provider Unavailabl e Encounter Details Date Type Department Care Team (Late st Contact Info) Description 12/14/2018 Transcribed Document [facility] [place] [address] [place] [address] ProviderHelen MD [address] [place], [place] [id number] Social History Tobacco Use Types Packs/Day Years Used Date Smoking Tobacco: Never Assessed Comments Unknown Sex and Gender Information Value Date Recorded Sex Assigned at Not on file Legal Sex Female 2:04 PM CDT Gender Identity Not on file Sexual Orientation Not on file documented as of this encounter Miscellaneous Notes * Cerner Conversion Note - Historical ProviderMD - 12/14/2018 3:38 PM MASON LINER [facility] Main OR Preop Summary Primary Physician: ASHOK CHENG MD-SNU Finalized Date/Time: 12/14/18 16:03:23 Pt. Name: BERNICE NAVARRETE/Sex: 1945 Female Med Rec #: [id number] Physician: ASHOK CHENG MD-U Financial #: [id number] Pt. Type: O Room/Bed: Admit/Disch: 12/14/18 11:04:00 - Institution: [facility] PreOp Case Times Entry 1 In Preop 12/14/18 11:12:00 Ready for Holding n/a Room Patient Ready for 12/14/18 12:34:00 Surgery Patient Out of Preop 12/14/18 15:10:00 Patient Out of n/a Holding Room Last Modified By: WILLA CIFUENTES RN 12/14/18 16:03:22 [facility] PreOp Case Times Audit 12/14/18 16:03:22 Painter Interior Finish: KELIN Modifier: GERSHIN <+> 1 Patient Out of Preop 12/14/18 12:35:01 Painter Interior Finish: KELIN Modifier: KELIN <+> 1 Patient Ready for Surgery Finalized By: WILLA CIFUENTES, RN Document Signatures Signed By: WILLA CIFUENTES RN 12/14/18 16:03 Electronically signed by Michelet [facility] Conversion Gas Appliance Adjuster Cerner at 02/02/2023 12:33 PM CDT documented in this encounter Plan of Treatment Not on file documented as of this encounter Visit Diagnoses Not on filedocumented in this encounter
--- OUTSIDE RECORDS SUMMARY | 2025-06-29 11:43 | XMS_ITS | Encounter Summary ---
Author Organization [employer] ([place], [place], [place], [place]) Address [address] [place] [address] Care Team Providers Care Certification Officer Name Role Phone Unavailable Primary Care Provider Unavailabl e Encounter Details Date Type Department Care Team (Late st Contact Info) Description 12/14/2018 Transcribed Document [facility] [place] Family Medicine [address] [place] [address] ProviderHelen MD [address] [place] [address] Social History Tobacco Use Types Packs/Day Years Used Date Smoking Tobacco: Never Assessed Comments Unknown Sex and Gender Information Value Date Recorded Sex Assigned at Not on file Legal Sex Female 2:04 PM CDT Gender Identity Not on file Sexual Orientation Not on file documented as of this encounter Miscellaneous Notes * Cerner Conversion Note - Historical ProviderMD - 12/14/2018 6:18 PM ISOTOPE HYDROLOGIST Discharge Instructions Entered On: 12/14/2018 18:19 EST [...] Discharge Comment : Follow instructionsout from [facility] Neurosurgery. Jalyn Fermin RN - 12/14/2018 18:18 EST Electronically signed by Francisco Tafoya Conversion Senior Java Programmer Analyst Cerner at 02/02/2023 12:21 PM CDT documented in this encounter Plan of Treatment Not on file documented as of this encounter Visit Diagnoses Not on filedocumented in this encounter
--- OUTSIDE RECORDS SUMMARY | 2025-06-29 11:43 | XMS_ITS | Clinical Summary ---
Author Organization [facility] Address [facility] [place] [address] Phone Care Team Providers Care Regional Director Name Role Phone Riley Ogden MD Unavailable [phone] Ramonita Anguiano MD Unavailable [phone] Nabil Gilbert MD Primary Care Provider [phone] Allergies Active Allergy Reactions Criticality Noted Date [...] 1-d ose 75+ series) 2018 COVID-19 Vaccine (1 - 2023-2 5 season) 2025 Influenza Vaccine (#1) 2025 Hepatitis B Vaccine Aged Out No longe r eligible based on patient's age to complete this topic Meningococcal B Vaccine Aged Out No l onger eligible based on patient's age to complete this topic Insurance Advance Directives For more information, please contact: [phone] Documents on File Type Date Recorded Patient Industrial Waste Treatment Technician Expl anation Power of Net Software Architect 03/27/2018 8:22 AM Advance Directives/DNR 01/09/2018 6:18 PM Care Teams Regional Director Relationship Specialty Start Date End Date Nabil Gilbert MD [facility] [place] [address] PCP - General Family Medicine 12/29/17 Riley Ogden MD [address] [place] [address] [place] [address] Consulting Physician Obstetrics & Gynecology-Gynecologic Oncology 12/22/17 Ramonita Anguiano MD [address] [place] [address] [place] [address] Referring Physician Obstetrics & Gynecology 12/21/17
--- OUTSIDE RECORDS SUMMARY | 2025-06-29 11:43 | XMS_ITS | Encounter Summary ---
Author Organization [employer] ([place], [place], [place], [place]) Address [address] [place] [address] Care Team Providers Care Senior It Recruiter Name Role Phone Unavailable Primary Care Provider Unavailabl e Encounter Details Date Type Department Care Team (Late st Contact Info) Description 12/14/2018 Transcribed Document [facility] [place] [address] [place] [address] ProviderHelen MD [address] [place], [place] [phone] Social History Tobacco Use Types Packs/Day Years Used Date Smoking Tobacco: Never Assessed Comments Unknown Sex and Gender Information Value Date Recorded Sex Assigned at Not on file Legal Sex Female 2:04 PM CDT Gender Identity Not on file Sexual Orientation Not on file documented as of this encounter Miscellaneous Notes * Cerner Conversion Note - Historical ProviderMD - 12/14/2018 3:38 PM ROLLING CHAIR PUSHER [facility] Main OR PACU Summary Primary Physician: ASHOK CHENG MD-SNU Finalized Date/Time: 12/14/18 18:32:38 Pt. Name: BERNICE NAVARRETE/Sex: 1945 Female Med Rec #: [id number] Physician: ASHOK CHENG MD-SNU Financial #: [id number] Pt. Type: O Room/Bed: Admit/Disch: 12/14/18 11:04:00 - Institution: [facility] Main OR PACU I Case Times Entry 1 In PACU I 12/14/18 16:25:00 Ready for PACU 12/14/18 17:20:00 Discharge Discharge from PACU 12/14/18 18:00:00 I Last Modified By: LARA CHOI RN 12/14/18 18:32:24 [facility] Main OR PACU Acuity Entry 1 Start Time 12/14/18 17:20:00 Stop Time 12/14/18 18:00:00 Acuity Level [facility] PACU Acuity I Last Modified By: LARA CHOI RN 12/14/18 18:32:36 Finalized By: LARA CHOI, RN Document Signatures Signed By: LARA CHOI RN 12/14/18 18:32 documented in this encounter Plan of Treatment Not on file documented as of this encounter Visit Diagnoses Not on filedocumented in this encounter
--- OUTSIDE RECORDS SUMMARY | 2025-06-29 11:43 | XMS_ITS | Encounter Summary ---
Author Organization [employer] ([place], [place], [place], [place]) Address [address] [place] [address] Care Team Providers Care Grant Coordinator Name Role Phone Unavailable Primary Care Provider Unavailabl e Encounter Details Date Type Department Care Team (Late st Contact Info) Description 12/14/2018 Transcribed Document [facility] [address] [facility] [address] [place] [id number] Francisco Herndon MD [address] [facility] [address] [place] [address] Social History Tobacco Use Types Packs/Day Years [...] invasive L4-5 laminectomy. SURGEON: Francisco Herndon MD MASTIC WORKER: Endy Hogue. TYPE OF ANESTHESIA: GEA. DESCRIPTION [...] Francisco Herndon M.D. CC2: Dr. Nabil Gilbert; [address] [place] [address], [address] [address]; [phone] documented in this encounter Plan of Treatment Not on file documented as of this encounter Visit Diagnoses Not on filedocumented in this encounter
[2025-06-29 11:50] VITALS: BP 178/85; PULSE 66; RESP 18; TEMP 36.4; O2SAT 94; BMI 30.1
[2025-06-29 11:54] VITALS: O2SAT 94
[2025-06-29 12:01] VITALS: BP 148/74; PULSE 63; O2SAT 96
--- NOTE | 2025-06-29 12:05 | PC.NURSE ---
provider Maryam GILLIAM at bedside
--- NOTE | 2025-06-29 12:06 | XR_ITS ---
PROCEDURE INFORMATION: Exam: XR Right Elbow Exam date and time: 06/29/2025 12:20 PM Age: 79 years old Clinical indication: Injury or trauma; Fall; Blunt trauma (contusions or hematomas); Elbow; Bilateral; Additional info: Fall landed on elbows TECHNIQUE: Imaging protocol: Radiologic exam of the right elbow. Views: 1 or 2 views. Total images: 2 COMPARISON: CR XR SHOULDER RT MIN 2V 08/20/2021 1:32 PM FINDINGS: Bones/joints: Bones are osteopenic. No evidence of acute fracture or dislocation. Soft tissues: Diffuse soft tissue swelling. IMPRESSION: 1. Diffuse soft tissue swelling. 2. Bones are osteopenic. 3. No evidence of acute fracture or dislocation.
--- NOTE | 2025-06-29 12:06 | XR_ITS ---
PROCEDURE INFORMATION: Exam: XR Left Elbow Exam date and time: 06/29/2025 12:20 PM Age: 79 years old Clinical indication: Injury or trauma; Fall; Blunt trauma (contusions or hematomas); Elbow; Bilateral; Additional info: Fall, landed on elbows TECHNIQUE: Imaging protocol: Radiologic exam of the left elbow. Views: 1 or 2 views. Total images: 4 COMPARISON: CR XR ELBOW LT MIN 3V 08/28/2024 9:06 AM FINDINGS: Bones/joints: No evidence of acute fracture or dislocation. Bones are osteopenic. Olecranon soft tissue swelling. Soft tissues: Soft tissues are within normal limits. IMPRESSION: 1. No evidence of acute fracture or dislocation. 2. Bones are osteopenic. 3. Olecranon soft tissue swelling.
--- NOTE | 2025-06-29 12:11 | PC.NURSE ---
provided patient a water and turkey sandwich at request. family at bedside, call light in reach. no further needs at this time.
--- NOTE | 2025-06-29 12:29 | ED_ITS ---
<Statement entered by Jame Mehta MD - 06/29/25 14:28> I was consulted by the ANDRES, and we discussed the complexity of the problems being addressed. I approved the treatment and management plan for this patient's care in the emergency department, thus performing a substantive portion of the medical decision making. Jame Mehta MD, ROMA, FACEP Discharge Plan Disposition Patient Disposition: Home, Self-Care Prescriptions Prescriptions: No Action melatonin 10 mg tablet 10 mg PO HSP PRN (Reason: Sleep) ascorbic acid (vitamin C) 1,000 mg tablet 1 g PO DAILY cyanocobalamin (vitamin B-12) 250 mcg tablet 250 mcg PO DAILY cholecalciferol (vitamin D3) 125 mcg (5,000 unit) capsule 125 mcg PO DAILY biotin 5 mg capsule 5 mg PO DAILY coenzyme Q10 10 mg capsule 10 mg PO DAILY aspirin 81 mg capsule 81 mg PO DAILY magnesium oxide 400 mg (241.3 mg magnesium) tablet 400 mg PO DAILY Qty: 90 5RF ferrous sulfate [FeroSul] 325 mg (65 mg iron) tablet 325 mg PO BID Qty: 60 2RF Rx Instructions: TAKE 1 TABLET TWICE DAILY FOR SUPPLEMENT prednisone 5 mg tablet See Rx Instructions .ROUTE .COMPLEX Qty: 90 3RF Dose Instruction: TAKE 1 TABLET EVERY DAY FOR CHRONIC PAIN Rx Instructions: TAKE 1 TABLET EVERY DAY FOR CHRONIC PAIN losartan-hydrochlorothiazide 100-12.5 mg tablet See Rx Instructions .ROUTE .COMPLEX Qty: 90 2RF Dose Instruction: TAKE 1 TABLET EVERY DAY Rx Instructions: TAKE 1 TABLET EVERY DAY trazodone 50 mg tablet See Rx Instructions .ROUTE .COMPLEX Qty: 180 3RF Dose Instruction: TAKE 2 TABLETS EVERY NIGHT AT BEDTIME FOR SLEEP Rx Instructions: TAKE 2 TABLETS EVERY NIGHT AT BEDTIME FOR SLEEP omeprazole 40 mg capsule,delayed release(DR/EC) 40 mg PO DAILY Qty: 90 1RF rosuvastatin 10 mg tablet 10 mg PO DAILY Qty: 90 3RF sertraline 100 mg tablet 100 mg PO HS Qty: 90 0RF Rx Instructions: TAKE 1 TABLET EVERY DAY metoprolol succinate 25 mg tablet extended release 24 hr 25 mg PO AM Qty: 30 2RF albuterol sulfate 90 mcg/actuation HFA aerosol inhaler 1 puff inhalation QIDP PRN (Reason: Shortness Of Breath) Rx Instructions: INHALE 1 PUFF FOUR TIMES DAILY NEEDED FOR SHORTNESS OF BREATH OR WHEEZING Stiolto Respimat 2.5-2.5 mcg/actuation mist 2 puff inhalation DAILY Rx Instructions: INHALE 2 PUFFS EVERY DAY FOR COPD acetaminophen 500 mg Capsule 500 mg PO TID pregabalin [Lyrica] 50 mg capsule 75 mg PO QHS alendronate 35 mg Tablet 35 mg PO WEEKLY Referrals Follow up/Referrals: Vladimir KAN MD [Primary Care Provider, Family Practice] - See instructions Activity Restrictions/Add. Instructions Additional Instructions/Restrictions: Today you were evaluated in the emergency department after a fall. The x-rays of your elbow do not show any acute fracture. You do have skin tears, please keep these clean and dry, use a dressing when appropriate. Please follow-up with PCP within 48 hours. Please return to the ED for any worsening of your condition. Clinical Impressions Clinical Impression: Bilateral elbow joint pain, Fall, Skin tear Instructions Patient Instructions: How to Prevent Falls Print Language Print Language: Trinidadian Discharge ED Provider: Jame Mehta General Adult HPI General Chief complaint: Fall Stated complaint: AO 06/29/25 0700, fell, inj left elbow Time Seen by Provider: 06/29/25 11:59 Mode of Arrival: Ambulatory Source of Information: Patient Description of Symptoms (Recalled from ER Triage Doc. by RN): patient presents to the ED after a fall at home. patient was trying to go to the bathroom when she tripped over a fan in her bathroom. patient did not loose consciouseness. patient only hit her elbow, does not claim she hot anything else. History of Present Illness HPI narrative: patient is an 79-year-old female PMHx anemia, COPD, ASCVD, diastolic dysfunction, HLD, HTN who presents to the ED after a fall that occurred prior to arrival. Patient states she is ambulatory at home however tripped, falling on a fan, states her butt landed on the fan however she hit her bilateral elbows in the process. Did not hit her head, did not lose consciousness, is not on blood thinners. Patient states she frequently trips over things, has ecchymosis and skin tears from a fall that occurred on 06/16/2025. Related Data Home Medications ?Medication ?Instructions ?Recorded ?Confirmed melatonin 10 mg tablet 10 mg PO HSP PRN Sleep 05/2006/29/25 ascorbic acid (vitamin C) 1,000 mg 1 g PO DAILY 06/29/25 tablet biotin 5 mg capsule 5 mg PO DAILY 12/16/2106/29 cholecalciferol (vitamin D3) 125 125 mcg PO DAILY 01/0406/29/25 mcg (5,000 unit) capsule coenzyme Q10 10 mg capsule 10 mg PO DAILY 12/16/21 cyanocobalamin (vitamin B-12) 250 250 mcg PO DAILY 01/0406/29/25 mcg tablet aspirin 81 mg capsule 81 mg PO DAILY 07/22/2206/16 acetaminophen 500 mg capsule 500 mg PO TID 08/27/24 albuterol sulfate 90 mcg/actuation 1 puff inhalation Q IDP PRN 08/27/24 06/29/25 aerosol inhaler Shortness Of Breath tiotropium 2.5 mcg-olodaterol 2.5 2 puff inhalation DA LILIANA 08/27/24 06/29/25 mcg/actuation mist for inhalation (Stiolto Respimat) alendronate 35 mg tablet 35 mg PO WEEKLY 06/29/25 pregabalin 50 mg capsule (Lyrica) 75 mg PO QHS 5 06/29/25 Previous Rx's ?Medication ?Instructions ?Recorded magnesium oxide 400 mg (241.3 mg 400 mg PO DAILY #90 t abs 09/23/24 magnesium) tablet ferrous sulfate 325 mg (65 mg 325 mg PO BID #60 tabs 0 01/06/25 iron) tablet (FeroSul) prednisone 5 mg tablet See Rx Instructions .Route 0 02/07/25 .COMPLEX #90 tabs losartan 100 See Rx Instructions .Route 0 04/30/25 mg-hydrochlorothiazide 12.5 mg .COMPLEX #90 tabs tablet trazodone 50 mg tablet See Rx Instructions .Route 0 04/30/25 .COMPLEX #180 tabs omeprazole 40 mg capsule,delayed 40 mg PO DAILY #90 ca ps 05/07/25 release rosuvastatin 10 mg tablet 10 mg PO DAILY #90 tabs 04/16 01/07 sertraline 100 mg tablet 100 mg PO HS #90 tabs metoprolol succinate 25 mg 25 mg PO AM #30 tabs tablet,extended release 24 hr Allergies Allergy/AdvReac Type Severity Reaction Status Date / Time cephalexin (CEPHALEXIN) Allergy Unknown hives Verified 04/08/25 09:46 ibuprofen (From Motrin) Allergy hives Verified 04/08/25 09:46 [facility] Disclaimer: The information contained in this section may have been updated after the patient was seen, as this information can be updated by other users. Medical History (Updated 06/29/25 @ 12:59 by Maryam Raymond APRN) On prednisone therapy Low thyroid stimulating hormone (TSH) level SOB (shortness of breath) on exertion Cough productive of yellow sputum Renal artery stenosis Fall Pyelonephritis Femoral neck fracture Tobacco dependence syndrome Right foot drop Neuropathy of right peroneal nerve Dizziness Enteritis History of left common carotid artery stent placement Typical angina Family history of ischemic heart disease GERD (gastroesophageal reflux disease) Hip injury Anemia Anemia Atypical angina Stenosis of carotid artery Frequent falls SOB (shortness of breath) on exertion Pericardial effusion Elevated troponin UTI (urinary tract infection) E coli infection Chronic thoracic back pain Displacement of internal left hip prosthesis Abnormal thyroid function test History of ASCVD (atherosclerotic cardiovascular disease) Dyspnea Chest pain Surgical History Status post left hip replacement History of total left hip replacement Social History (Updated 04/08/25 @ 09:46 by Ginny Snell MA) Smoking Status: Never smoker alcohol intake: never substance use type: denies use current occupational status: retired Travel in the last 8 weeks?: Inside the [place] household members: none housing: house current occupational exposures/hazards: No caffeine: No Have you lived/traveled outside US in past 30 days?: No Contact w/someone who lives/traveled outside US past 30 days?: No Exposure to someone with infectious disease in past 14 days?: No Do you have a fever (greater than 100.4 F or 38 C)?: No Have you tested positive for COVID-19?: No Exposed to someone with COVID-19 in past 14 days?: No Do you have a sore throat?: No Do you have a cough?: No Do you have any weakness?: No Do you have any diarrhea?: No Are you experiencing any unusual bleeding?: No Do you have any muscle aches/pain?: No Do you have any abdominal pain?: No Are you experiencing loss of taste or smell?: No Other Medical History Have you received the Flu Vaccine for this season: No Have you received the Pneumonia Vaccine: Yes ROS Obtained: Yes Systems reviewed as appropriate & no additional complaints except as documented Physical Exam General General appearance: alert Head Head exam: atraumatic Eye Eye exam: Present PERRL and EOMI ENT ENT exam: Present normal exam Neck Neck exam: Present normal inspection and full ROM; Absent tenderness Respiratory Respiratory exam: Present normal lung sounds bilaterally Cardiovascular Cardiovascular exam: Present regular rate Abdominal Exam Abdominal exam: Present soft Extremities Exam Extremities exam: Present other (Bilateral elbow skin tears, swelling of the left elbow on the lateral aspect) Neurological Exam Neurological exam: Present alert and oriented X3 Skin Skin exam: Present warm and dry Medical Decision Making Medical Records Screening: Per USPSTF and CDC recommendations, given the prevalence of disease in our region, it is our hospital?s policy to screen for HIV and viral Hepatitis for all patients aged 18 and over and those with ongoing risk factors. Everardo Inquiry Pt receiving controlled substance: No Vital Signs: 06/29/25 11:42 06/29/25 11:50 06/29/25 11:54 Temperature 97.6 F Temperature Source Temporal Artery Scan Pulse Rate 60 Pulse Rate [Left Radial] 66 Respiratory Rate 18 Blood Pressure 176/75 H Blood Pressure [Right Arm] 178/85 H Blood Pressure Mean 132 Blood Pressure Mean [Right Arm] 116 Blood Pressure Source [Right Arm] Automatic Cuff Blood Pressure Position [Right Arm] Sitting 02 Sat by Pulse Oximetry 94 L 94 L 94 L Oxygen Delivery Method Room Air Room Air Room Air 06/29/25 12:01 Temperature Temperature Source Pulse Rate 63 Pulse Rate [Left Radial] Respiratory Rate Blood Pressure 148/74 H Blood Pressure [Right Arm] Blood Pressure Mean 123 Blood Pressure Mean [Right Arm] Blood Pressure Source [Right Arm] Blood Pressure Position [Right Arm] 02 Sat by Pulse Oximetry 96 Oxygen Delivery Method Room Air Orders (Tests/Meds): ORDERS Category Date Time Status Elbow XR left 2 views [XR elbow LT 2V] Stat Exams 06/29/25 12:06 Taken Elbow XR right 2 views [XR elbow RT 2V] Stat Exams 06/29/25 12:06 Taken Medical Decision Narrative: In summary, patient is an 79-year-old female PMHx anemia, COPD, ASCVD, diastolic dysfunction, HLD, HTN who presents to the ED after a fall that occurred prior to arrival. Patient states she is ambulatory at home however tripped, falling on a fan, states her butt landed on the fan however she hit her bilateral elbows in the process. Did not hit her head, did not lose consciousness, is not on blood thinners. Patient states she frequently trips over things, has ecchymosis and skin tears from a fall that occurred on 06/16/2025. Patient did not lose consciousness during that fall either. Patient is accompanied in the ED by her daughters who help provide history. Patient denies additional injury. States that she took 1000 mg of acetaminophen prior to arrival for pain relief. Patient denies wanting additional pain medication. Upon initial evaluation, she is alert, oriented and cooperative. Her physical exam is remarkable for skin tear on her left elbow, swelling of the left elbow. Skin tear noted on the right elbow, no tenderness or edema on right elbow. Patient has old skin tear on her left upper arm. She has healing ecchymosis on forearms. Head atraumatic. No spinal tenderness, no step-offs or deformities. Pelvis stable. Differential diagnosis include mechanical fall, skin tear, abrasions, fracture, displacement, malalignment, among others. Discussed with patient and family we will proceed with x-rays of the bilateral elbows. We will perform wound care on her skin tears. Wounds cleaned and redressed. My informal interpretation of the bilateral elbow imaging is no acute fracture noted. No malalignment. Discussed with patient at this time I feel she is safe to be discharged home. We discussed fall prevention, follow-up with PCP within 48 hours. We discussed return precautions to the ED and patient verbalized understanding. She is hemodynamically stable and ambulatory from the ED. Critical Care Critical Care Time Critical Care Time: No
--- NOTE | 2025-06-29 13:09 | PC.NURSE ---
patients bilateral elbow skin tears dressed with vaseline gauze, non adherent pad, and coban. education provided to family.
[2025-06-29 13:10] VITALS: BP 172/70; PULSE 58; RESP 18; TEMP 36.8; O2SAT 98
== END 2025-06-29 13:17 | disposition home or self-care (01) ==
PROVIDERS: Emergency Provider Student in an Organized Health Care Education/Training Program; PCP Family Medicine
DX: M25.522 Pain in left elbow (principal); M25.521 Pain in right elbow; S51.001A Unspecified open wound of right elbow, initial encounter; S51.002A Unspecified open wound of left elbow, initial encounter; W01.10XA Fall on same level from slipping, tripping and stumbling with subsequent striking against unspecified object, initial encounter
CPT/HCPCS: 73070; 99284

== ENCOUNTER 2025-07-01 14:08 | Outpatient (CLI) | payer MEDICARE, SELFPAY ==
[2025-07-01 19:29] LABS: Hematocrit 47.0 % (37.0-47.0); Hemoglobin 14.6 g/dL (12.2-16.2); Immature Granulocytes % 0.7 %; Mean Corpuscular HGB Conc 31.1 g/dL (31.8-35.4); Mean Corpuscular Hemoglobin 29.3 pg (27.0-31.2); Mean Corpuscular Volume 94.4 fl (81-99); Nucleated Red Blood Cells % 0 %; Platelet Count 115 K/mm3 (142-424); Red Blood Count 4.98 M/mm3 (4.20-5.40); Red Cell Distribution Width-SD 53.9 fL; White Blood Count 6.9 K/mm3 (4.8-10.8)
[2025-07-01 20:31] LABS: Anion Gap 14.5 mEq/L (5-15); Blood Urea Nitrogen 24 mg/dl (7-17); Calcium 9.2 mg/dl (8.4-10.2); Carbon Dioxide 26 mmol/L (22.0-30.0); Chloride 102 mmol/L (98-107); Creatinine,Serum 0.90 mg/dl (0.52-1.04); Estimated Glomerular Filt Rate 60 ml/min (>60); GFR (African American) 73 ML/MIN (>60); Glucose 129 mg/dl (74-100); Potassium 4.5 mmoL/L (3.5-5.1); Sodium 138 mmol/L (136-145)
--- OUTSIDE RECORDS SUMMARY | 2025-07-02 10:24 | XMS_ITS | Encounter Summary ---
Author Organization [employer] ([place], [place], [place], [place]) Address [address] [place] [address] Care Team Providers Care Database Software Technician Name Role Phone Unavailable Primary Care Provider Unavailabl e Encounter Details Date Type Department Care Team (Late st Contact Info) Description 12/14/2018 Transcribed Document [facility] [place] Family Medicine [address] [place] [address] ProviderHelen MD [address] [place], [place] [id number] Social History Tobacco Use Types Packs/Day Years Used Date Smoking Tobacco: Never Assessed Comments Unknown Sex and Gender Information Value Date Recorded Sex Assigned at Not on file Legal Sex Female 2:04 PM CDT Gender Identity Not on file Sexual Orientation Not on file documented as of this encounter Miscellaneous Notes * Cerner Conversion Note - Historical ProviderMD - 12/14/2018 3:38 PM VETERINARY RADIOLOGIST [facility] Main OR Preop Summary Primary Physician: ASHOK CHENG MD-SNU Finalized Date/Time: 12/14/18 16:03:23 Pt. Name: BERNICE NAVARRETE/Sex: 1945 Female Med Rec #: [id number] Physician: ASHOK CHENG MD-U Financial #: [id number] Pt. Type: O Room/Bed: Admit/Disch: 12/14/18 11:04:00 - Institution: [facility] PreOp Case Times Entry 1 In Preop 12/14/18 11:12:00 Ready for Holding n/a Room Patient Ready for 12/14/18 12:34:00 Surgery Patient Out of Preop 12/14/18 15:10:00 Patient Out of n/a Holding Room Last Modified By: WILLA CIFUENTES RN 12/14/18 16:03:22 [facility] PreOp Case Times Audit 12/14/18 16:03:22 Reading Recovery Teacher: KELIN Modifier: GERSHIN <+> 1 Patient Out of Preop 12/14/18 12:35:01 Reading Recovery Teacher: KELIN Modifier: KELIN <+> 1 Patient Ready for Surgery Finalized By: WILLA CIFUENTES, RN Document Signatures Signed By: WILLA CIFUENTES RN 12/14/18 16:03 Electronically signed by Michelet [facility] Conversion Director Health Cerner at 02/02/2023 12:33 PM CDT documented in this encounter Plan of Treatment Not on file documented as of this encounter Visit Diagnoses Not on filedocumented in this encounter
--- OUTSIDE RECORDS SUMMARY | 2025-07-02 10:24 | XMS_ITS | Encounter Summary ---
Author Organization [employer] ([place], [place], [place], [place]) Address [address] [place] [address] Care Team Providers Care Blankbook Stitching Machine Operator Name Role Phone Unavailable Primary Care Provider Unavailabl e Encounter Details Date Type Department Care Team (Late st Contact Info) Description 12/14/2018 Transcribed Document [facility] [address] [facility] [address] [place] [id number] Francisco Herndon MD [address] [facility] [address] [place] [id number] Social History Tobacco Use Types Packs/Day Years [...] the office by Dr. Herndon presents to [facility] for L4-5 MIS decompression possible [...]
--- OUTSIDE RECORDS SUMMARY | 2025-07-02 10:24 | XMS_ITS | Encounter Summary ---
Author Organization [employer] ([place], [place], [place]) Address [address] [place] [address] Care Team Providers Care Engineering Scientist Name Role Phone Unavailable Primary Care Provider Unavailabl e Encounter Details Date Type Department Care Team (Late st Contact Info) Description 12/14/2018 Transcribed Document [facility] Family Medicine [facility] [place] [address] ProviderHelen MD [address] [place] [address] Social History Tobacco Use Types Packs/Day Years Used Date Smoking Tobacco: Never Assessed Comments Unknown Sex and Gender Information Value Date Recorded Sex Assigned at Not on file Legal Sex Female 2:04 PM CDT Gender Identity Not on file Sexual Orientation Not on file documented as of this encounter Miscellaneous Notes * Cerner Conversion Note - Helen ProviderMD - 12/14/2018 5:54 PM GOVERNMENT GAUGER [address] [address] Patient Copy Patient Information: Name: BERNICE NAVARRETE Current Date: 12/14/2018 17:54:53 : 1945 Patient Address: [address] [place] [address] Patient Attending Physician: SAHOK CHENG MD-SNU Primary Care Provider: MUSTAPHA EASTMAN MD-[facility] Primary Care Provider Discharge Diagnosis: Weight [...] and water are not available, use hand director global strategic publisher sales. ? Change your dressing as told [...] or a bad smell. Medicines ??? Take rmah-oke-gqmxvqj and prescription medicines only as told by [...] urine clear or pale yellow. ? Take fhwn-ipb-ajrjsmv or prescription medicines. ? Eat foods that [...] 04/21/2006 Document Revised: 05/18/2017 Document Reviewed: 03/19/2017 [employer] Interactive Patient Education ? 2017 [employer] General Anesthesia, Adult, Care After These [...] activities are safe for you. ??? Take kdth-hwq-wnovpcy and prescription medicines only as told by [...] 01/08/2002 Document Revised: 03/06/2017 Document Reviewed: 09/15/2016 [employer] Interactive Patient Education ? 2017 [employer] Medication Leaflets: acetaminophen and hydrocodone (a SEET a MIN oh fen and long droe KOE done) Hycet, Lorcet, Elizabeth, Verdrocet, Vicodin, Xodol, Zamicet What is the [...] may report side effects to FDA at 2-240-WGG-5105. What other drugs will affect acetaminophen and [...] affect acetaminophen and hydrocodone, including prescription and dofz-syz-clbgubc medicines, vitamins, and herbal products. Not all [...] to ensure that the information provided by [employer]. ('[employer]') is accurate, up-to-date, and complete, but no guarantee is made to that effect. Drug information contained herein may be time sensitive. [employer] information has been compiled for use by healthcare practitioners and consumers in the [place] and therefore [employer] does not warrant that uses outside of the [place] are appropriate, unless specifically indicated otherwise. [employer] drug information does not endorse drugs, diagnose patients or recommend therapy. [employer] drug information is an informational resource designed [...] effective or appropriate for any given patient. [employer] does not assume any responsibility for any aspect of healthcare administered with the aid of information [employer] provides. The information contained herein is not intended to cover all possible uses, directions, precautions, warnings, drug interactions, allergic reactions, or adverse effects. If you have questions about the drugs you are taking, check with your doctor, nurse or pharmacist. Copyright 1116-7398 [employer]. Version: 15.02. Revision Date: 08/20/2018. cyclobenzaprine (benedicto [...] may report side effects to FDA at 9-213-LTR-4583. What other drugs will affect cyclobenzaprine? Using [...] drugs may affect cyclobenzaprine, including prescription and bplz-kfv-ednyadx medicines, vitamins, and herbal products. Not all [...] to ensure that the information provided by [employer]') is accurate, up-to-date, and complete, but no guarantee is made to that effect. Drug information contained herein may be time sensitive. [employer] information has been compiled for use by healthcare practitioners and consumers in the [place] and therefore [employer] does not warrant that uses outside of the [place] are appropriate, unless specifically indicated otherwise. [employer] drug information does not endorse drugs, diagnose patients or recommend therapy. [employer] drug information is an informational resource designed [...] effective or appropriate for any given patient. [employer] does not assume any responsibility for any aspect of healthcare administered with the aid of information [employer] provides. The information contained herein is not intended to cover all possible uses, directions, precautions, warnings, drug interactions, allergic reactions, or adverse effects. If you have questions about the drugs you are taking, check with your doctor, nurse or pharmacist. Copyright 2109-2759 [employer]. Version: 5.01. Revision Date: 07/11/2018. CIGARETTE SMOKING: The facts are clear, cigarette smoking will shorten your life. Smoking can cause many illnesses along the way. As a healthcare provider, we recommend that you stop smoking. Assistance with quitting is available by contacting 8-450-GXHH-NOW. This is a free resource providing counseling, [...] Be sure to sign up for the [employer] patient portal, which gives you 08/05 access to your medical information ??? including these discharge instructions ??? using your computer, smartphone, or tablet. Just go to [employer] to get started. Questions? Call . [facility] would like to thank you for allowing us to assist you with your healthcare needs. ROSALBA Parker CATHERINE M, (or fuels sales representative) have received the above patient education materials/instructions and have verbalized understanding: Patient Signature _ Date/Time Patient Automotive Salesperson Signature (if needed) Date/Time Clinician/Hospital Automotive Salesperson Signature (if needed) Date/Time documented in this encounter Plan of Treatment Not on file documented as of this encounter Visit Diagnoses Not on filedocumented in this encounter
--- OUTSIDE RECORDS SUMMARY | 2025-07-02 10:24 | XMS_ITS | Clinical Summary ---
Author Organization [employer] [facility] ([place], [place], [place], [place]) Address [address] [place] [address] Care Team Providers Care Boil Off Worker Name Role Phone Unavailable Primary Care [...]
--- OUTSIDE RECORDS SUMMARY | 2025-07-02 10:24 | XMS_ITS | Clinical Summary ---
Author Organization [facility] Address [facility] [place] [address] Phone Care Team Providers Care Clinical Nursing Assistant Name Role Phone Riley Ogden MD Unavailable [phone] Ramonita Anguiano MD Unavailable [phone] Nabil Gilbert MD Primary Care Provider [phone] Allergies Active Allergy Reactions Criticality Noted Date [...] Advance Directives For more information, please contact: [phone] Documents on File Type Date Recorded Patient Wave Solder Offbearer Expl anation Power of Canal Equipment Maintenance Supervisor 03/27/2018 8:22 AM Advance Directives/DNR 01/09/2018 6:18 PM Care Teams Clinical Nursing Assistant Relationship Specialty Start Date End Date Nabil Gilbert MD [facility] [place] [address] [place] [address] PCP - General Family Medicine 12/29/17 Riley Ogden MD [address] [place] [address] [place] [address] Consulting Physician Obstetrics & Gynecology-Gynecologic Oncology 12/22/17 Ramonita Anguiano MD [address] [place] [address] [place] [address] Referring Physician Obstetrics & Gynecology 12/21/17
--- OUTSIDE RECORDS SUMMARY | 2025-07-02 10:24 | XMS_ITS | Encounter Summary ---
Author Organization [place] [address] Care Team Providers Care Button Cutting Machine Operator Name Role Phone Riley Ogden MD Unavailable [phone] Ramonita Anguiano MD Unavailable [phone] Nabil Gilbert MD Primary Care Provider [phone] Encounter Details Date Type Department Care Team (Late st Contact Info) Description 04/26/2022 Lab Requisition [facility] [place] [address] Abnormal finding of blood chemistry, [...] al Result [facility] [address] [facility] , [place] [address] documented in this encounter Visit Diagnoses Diagnosis Abnormal finding of blood chemistry, unspecified documented in this encounter Additional Health Concerns Assessment Noted Time A fall risk assessment has been complete d for the patient 12/11/2017 7:56 AM EST documented as of this encounter Care Teams Button Cutting Machine Operator Relationship Specialty Start Date End Date Nabil Gilbert MD [address] [facility] [address] [place] [address] PCP - General Family Medicine 12/29/17 Riley Ogden MD [address] [facility] [place] [address] Consulting Physician Obstetrics & Gynecology-Gynecologic Oncology 12/22/17 Ramonita Anguiano MD [address] [facility] [place] [address] Referring Physician Obstetrics & Gynecology 12/21/17 documented as of this encounter
--- OUTSIDE RECORDS SUMMARY | 2025-07-02 10:24 | XMS_ITS | Encounter Summary ---
Author Organization [employer] ([place], [place], [place], [place]) Address [address] [place] [address] Care Team Providers Care Surveyor Hydrographic Name Role Phone Unavailable Primary Care Provider Unavailabl e Encounter Details Date Type Department Care Team (Late st Contact Info) Description 12/14/2018 Transcribed Document [facility] Family Medicine [address] [place] [address] ProviderHelen MD [address] [place], [place] [phone] Social History Tobacco Use Types Packs/Day Years Used Date Smoking Tobacco: Never Assessed Comments Unknown Sex and Gender Information Value Date Recorded Sex Assigned at Not on file Legal Sex Female 2:04 PM CDT Gender Identity Not on file Sexual Orientation Not on file documented as of this encounter Miscellaneous Notes * Cerner Conversion Note - Historical ProviderMD - 12/14/2018 3:38 PM [facility] Main OR PACU Summary Primary Physician: ASHOK CHENG MD-SNU Finalized Date/Time: 12/14/18 18:32:38 Pt. Name: BERNICE NAVARRETE/Sex: 1945 Female Med Rec #: [id number] Physician: ASHOK CHENG MD-SNU Financial #: [id number] Pt. Type: O Room/Bed: Admit/Disch: 12/14/18 11:04:00 - Institution: [facility] Main OR PACU I Case Times Entry 1 In PACU I 12/14/18 16:25:00 Ready for PACU 12/14/18 17:20:00 Discharge Discharge from PACU 12/14/18 18:00:00 I Last Modified By: LARA CHOI RN 12/14/18 18:32:24 [facility] Main OR PACU Acuity Entry 1 Start Time 12/14/18 17:20:00 Stop Time 12/14/18 18:00:00 Acuity Level [facility] PACU Acuity I Last Modified By: LARA CHOI RN 12/14/18 18:32:36 Finalized By: LARA CHOI, RN Document Signatures Signed By: LARA CHOI RN 12/14/18 18:32 Electronically signed by Michelet [place] Conversion Manager Of Applications Development Cerner at 02/02/2023 12:30 PM CDT documented in this encounter Plan of Treatment Not on file documented as of this encounter Visit Diagnoses Not on filedocumented in this encounter
--- OUTSIDE RECORDS SUMMARY | 2025-07-02 10:24 | XMS_ITS | Encounter Summary ---
Author Organization [employer] ([place], [place], [place], [place]) Address [address] [place] [address] Care Team Providers Care Erco Machine Operator Name Role Phone Unavailable Primary Care Provider Unavailabl e Encounter Details Date Type Department Care Team (Late st Contact Info) Description 12/14/2018 Transcribed Document [facility] Family Medicine [address] [place] [address] ProviderHelen MD [address] [place] [address] Social History Tobacco Use Types Packs/Day Years Used Date Smoking Tobacco: Never Assessed Comments Unknown Sex and Gender Information Value Date Recorded Sex Assigned at Not on file Legal Sex Female 2:04 PM CDT Gender Identity Not on file Sexual Orientation Not on file documented as of this encounter Miscellaneous Notes * Cerner Conversion Note - Historical ProviderMD - 12/14/2018 6:18 PM CHICKEN PICKER Discharge Instructions Entered On: 12/14/2018 18:19 EST [...] Discharge Comment : Follow [facility]out from [facility] Neurosurgery. Jalyn Fermin RN - 12/14/2018 18:18 EST documented in this encounter Plan of Treatment Not on file documented as of this encounter Visit Diagnoses Not on filedocumented in this encounter
--- OUTSIDE RECORDS SUMMARY | 2025-07-02 10:24 | XMS_ITS | Encounter Summary ---
Author Organization [employer] ([place], [place], [place], [place]) Address [address] [place] [address] Care Team Providers Care Extruding Department Supervisor Name Role Phone Unavailable Primary Care Provider Unavailabl e Encounter Details Date Type Department Care Team (Late st Contact Info) Description 12/14/2018 Transcribed Document [facility] [place] [facility] [address] [place] [address] ProviderHelen MD [address] [place], [place] [id number] Social History Tobacco Use Types Packs/Day Years Used Date Smoking Tobacco: Never Assessed Comments Unknown Sex and Gender Information Value Date Recorded Sex Assigned at Not on file Legal Sex Female 2:04 PM CDT Gender Identity Not on file Sexual Orientation Not on file documented as of this encounter Miscellaneous Notes * Cerner Conversion Note - Historical ProviderMD - 12/14/2018 3:38 PM ACTUARIAL TECHNICIAN [facility] Main OR IntraOp Summary Primary Physician: ASHOK CHENG MD-SNU Finalized Date/Time: 12/16/18 13:56:08 Pt. Name: BERNICE NAVARRETE Hiram LangfordB./Sex: 1945 Female Med Rec #: [id number] Physician: ASHOK CHENG MD-SNU Financial #: [id number] Pt. Type: O Room/Bed: Admit/Disch: 12/14/18 11:04:00 - Institution: [facility] IntraOp Case Attendance Entry 1 Entry 2 Entry 3 Case Attendee ASHOK CHENG WASSON, SANDRA D, RN RENEE, BOBBY, PA-C MD-SNU Role Performed Surgeon/Proceduralist, Carbon Coating Machine Operator, First Physician assistant professor of mathematics First Time In 12/14/18 15:13:00 12/14/18 15:13:00 12/14/18 15:13:00 Time Out 12/14/18 16:23:00 12/14/18 16:23:00 12/14/18 16:23:00 Procedure Lumbar Laminectomy(Left) Lumbar Laminectomy(Left) Lumbar Laminectomy(Left) Other Attendee Superficial Wound Closed By: Last Modified By: ISAÍAS RINCON, RN ISAÍAS RINCON, RN ISAÍAS RINCON, RN 12/14/18 16:23:11 12/14/18 16:23:11 12/14/18 16:23:11 Entry 4 Entry 5 Entry 6 Case Attendee IGGY EVANS LARRY B, PRODUCT EXAMINER LYLE FIGUEROA MD Role Performed Scrub, First PRODUCT EXAMINER/Nurse Maple Syrup Maker Anesthesiologist of Record Time In 12/14/18 15:13:00 12/14/18 15:13:00 12/14/18 15:13:00 Time Out 12/14/18 16:23:00 12/14/18 16:04:00 12/14/18 16:23:00 Procedure Lumbar Laminectomy(Left) Lumbar Laminectomy(Left) Lumbar Laminectomy(Left) Other Attendee Superficial Wound Closed By: Last Modified By: ISAÍAS RINCON, RN ISAÍAS RINCON, RN ISAÍAS RINCON, RN 12/14/18 16:23:11 12/14/18 16:23:11 12/14/18 16:23:11 Entry 7 Entry 8 Case Attendee Kendy Raymond SIMPSON, KRISTEN, PRODUCT EXAMINER Diagnostic [employer] Solutions Teammate Role Performed Dental Sales Representative PRODUCT EXAMINER/Nurse Maple Syrup Maker Time In 12/14/18 15:13:00 12/14/18 16:04:00 Time Out 12/14/18 16:23:00 12/14/18 16:23:00 Procedure Lumbar Laminectomy(Left) Lumbar Laminectomy(Left) Other Attendee Superficial Wound Closed By: Last Modified By: ISAÍAS RINCON, RN ISAÍAS RINCON, RN 12/14/18 16:23:11 12/14/18 16:23:11 [facility] IntraOp Case Attendance Audit 12/14/18 16:23:11 Schedule Manager: WASSONSY Modifier: WASSONSY 1 <+> Time Out [...] 8 <*> Procedure Lumbar Laminectomy(Left) 12/14/18 16:05:58 Schedule Manager: WASSONSY Modifier: WASSONSY 1 <*> Procedure Lumbar [...] Time In <+> 8 Procedure 12/14/18 15:35:50 Schedule Manager: WASSONSY Modifier: WASSONSY 1 <+> Time In [...] Role Performed <+> 7 Procedure 12/14/18 14:55:16 Schedule Manager: WASSONSY Modifier: WASSONSY <+> 4 Case Attendee <+> 4 Role Performed <+> 4 Procedure <+> 5 Case Attendee <+> 5 Role Performed <+> 5 Procedure [facility] IntraOp Case Times Entry 1 Patient In Room Time 12/14/18 15:13:00 Out Room Time 12/14/18 16:23:00 Anesthesia Start Time 12/14/18 15:13:00 Stop Time 12/14/18 16:23:00 Surgery / Procedure Times Start Time 12/14/18 15:38:00 Stop Time 12/14/18 16:13:00 Last Modified By: ISAÍAS RINCON RN 12/14/18 16:23:07 [facility] IntraOp Case Times Audit 12/14/18 16:23:07 Schedule Manager: WASSONSY Modifier: WASSONSY <+> 1 Out Room Time <+> 1 Stop Time 12/14/18 16:13:39 Schedule Manager: WASSONSY Modifier: WASSONSY <+> 1 Stop Time 12/14/18 15:38:29 Schedule Manager: WASSONSY Modifier: WASSONSY <+> 1 Start Time [facility] IntraOp Cautery Entry 1 Entry 2 ESU Identification Cautery Type Monopolar ESU BiPolar ESU Cautery Type Comments ID Number [id number] ID Type Hospital Number Hospital Number Cautery [...] SANDRA D, RN 12/14/18 15:40:53 12/14/18 15:40:53 [facility] IntraOp Communication Entry 1 Communication To Family/Significant other Comment START Communication By ISAÍAS RINCON RN Date and Time 12/14/18 15:39:00 Last Modified By: ISAÍAS RINCON RN 12/14/18 15:39:44 [facility] IntraOp Counts Verification Entry 1 Procedure Lumbar Laminectomy(Left) Count Info Count Type Sponge, Sharps, Miscellaneous Counts Verification Baseline/pre-procedure Sequence Count Results Not Applicable Counts Performed By Count Performed By IGGY EVANS (Scrub) Count Performed By ISAÍAS RINCON RN (RN) Last Modified By: ISAÍAS RINCON RN 12/14/18 15:40:01 [facility] IntraOp Counts Final Entry 1 Procedure Lumbar Laminectomy(Left) Final Count Info Count Type Sponge, Sharps, Miscellaneous Counts Verification Skin Closure/end of Sequence procedure Count Results Correct, surgeon notified Counts Performed By Count Performed By IGGY EVANS (Scrub) Count Performed By ISAÍAS RINCON RN (RN) Last Modified By: ISAÍAS RINCON RN 12/14/18 16:05:33 [facility] IntraOp Departure from OR Entry 1 Integumentary Assessment Integumentary WDL Assessment WDL Transfer/Handoff Transfer to PACU Phase I Handoff Method Phone call Handoff Reported to VIDYA VALENTINO RN Post-op Transport Stretcher/Gurney Via Patient Transport BOBBY DURAN PA-C, Accompanied by SAULO ABDI CRNA Last Modified By: ISAÍAS RINCON RN 12/14/18 16:06:24 [facility] IntraOp Dressing and Packing Entry 1 Type Dressing Location OP SITE Wound Dressing Item Steristrip, Other Applied By BOBBY DURAN PA-C Other Comments MASTISOL, STERISTRIPS, COVADERM Last Modified By: ISAÍAS RINCON RN 12/14/18 15:50:21 [facility] IntraOp Fire Risk Assessment Entry 1 [...] Modified By: ISAÍAS RINCON RN 12/14/18 15:42:21 [facility] IntraOp General Case Rope Coiling Machine Operator 1 Case Information OR OR 16 [facility] Case Level 1 Room Verified Yes Wound Class I - Clean Specialty SN Neurosurgery Anesthesia Type General ASA Class 3 Diagnosis Preop Diagnosis LUMBAR RADICULOPATHY Postop Same As Preop No Postop Diagnosis SEE MD POST OP NOTE Last Modified By: ISAÍAS RINCON RN 12/14/18 15:41:01 [facility] IntraOp General Case Data Audit 12/14/18 15:41:01 Schedule Manager: RANJAN Modifier: RANJAN <+> 1 ASA Class <+> 1 Room Verified [facility] IntraOp Intraoperative Assessment Entry 1 Handoff [...] Modified By: ISAÍAS RINCON RN 12/14/18 15:42:38 [facility] IntraOp Intraoperative Equipment Entry 1 Type Equipment Equipment Equipment Krzysztof Suction System ID Number [id number] Setting 180 MM HG Intraop Monitoring Electrocardiogram Three lead placement (ECG) Electrode Placement Blood Pressure Non-Invasive BP Device Source Antiembolic Devices Antiembolic Devices Sequential compression device, knee high Antiembolic Device Bilateral Location Antiembolic Device [id number] ID Number Scopes Photo/Video Documentation Photo No Video No Last Modified By: ISAÍAS RINCON RN 12/14/18 15:43:35 [facility] IntraOp Medication Admin Entry 1 Entry 2 Entry 3 Medication/Irrigant lidocaine 1% w/ Bacitracin 50,00units SPNG SURGFOAM epinephrine 1:100,000 powder vial [id number] 30ml vial - [id number] Combo Med List Time Administered Route of LOCAL ADDED TO NS IRRIGATION TOPICAL Administration Dose Dose 10 11930 1 Unit of Measure ml units pkt Volume Administered By ASHOK CHENG TUTT, MATTHEW PAIGE, TUTT, MATTHEW PAIGE, MD-SNU MD-PONCE SALAZAR-SNAlee Procedure Irrigation Irrigant Volume In Irrigant Volume Out Last Modified By: ISAÍAS RINCON, ISAÍAS SAGE, RN ISAÍAS RINCON RN 12/14/18 15:48:18 12/14/18 15:48:18 12/14/18 15:48:18 Entry 4 Entry 5 Medication/Irrigant thrombin 5000units Kenalog 40mg/ml - topical powder - [id number] Combo Med List Time Administered Route of [...] TRAMADOL 15 MG, MARCAINE 0.25% 30 ML [facility] IntraOp Medication Admin Audit 12/14/18 16:00:27 Schedule Manager: RANJAN Modifier: WASSONSY <+> 5 Medication/Irrigant <+> 5 Route of Administration <+> 5 Administered By <+> 5 Dose <+> 5 Unit of Measure [facility] IntraOp Patient Positioning Entry 1 Procedure [...] RINCON, RN, BOBBY DURAN PA-C, ALEX BLACK, PRODUCT EXAMINER Position Verified Positioning Yes Verified by Anesthesia Positioning Yes Verified by Surgeon Last Modified By: ISAÍAS RINCON RN 12/14/18 15:45:21 [facility] IntraOp Sign In Entry 1 Patient, [...] Modified By: ISAÍAS RINCON RN 12/14/18 15:43:51 [facility] IntraOp Sign Out Entry 1 RN [...] Modified By: ISAÍAS RINCON RN 12/14/18 16:23:18 [facility] IntraOp Sign Out Audit 12/14/18 16:23:18 Schedule Manager: WASSONSY Modifier: WASSONSY <+> 1 RN Sign Out Signature Date/Time [facility] IntraOp Skin Prep Entry 1 Procedure Lumbar Laminectomy(Left) Prescribed Yes Pre-Surgical Prep Completed Prep Area BACK Intraop Prep Integumentary WDL Assessment WDL Prep Agents Alcohol, Chlorhexadine gluconate, DuraPrep Prep by ASHOK CHENG MD-SNU Hair Removal Methods No hair removal performed Last Modified By: ISAÍAS RINCON RN 12/14/18 15:44:15 [facility] IntraOp Surgical Procedures Entry 1 Procedure Lumbar Laminectomy Modifiers Left Additional (LT L4-5 DECOMPRESSION, Procedure MIS LAMINECTOMY Description Primary Procedure Yes Primary Surgeon ASHOK CHENG MD-SNU Start 12/14/18 15:38:00 Stop 12/14/18 16:13:00 Anesthesia Type General Specialty SN Neurosurgery Wound Class I - Clean Last Modified By: ISAÍAS RINCON, RN 12/14/18 16:13:43 General Comments: CLINDAMYCIN 900 MG IV PER ANESTHESIA [facility] IntraOp Surgical Procedures Audit 12/14/18 16:13:43 Schedule Manager: WASSONSY Modifier: WASSONSY <+> 1 Stop 12/14/18 15:48:46 Schedule Manager: WASSONSY Modifier: WASSONSY 1 <*> Primary Surgeon [...] <*> Anesthesia Type 1 <*> Anesthesia Type [facility] IntraOp Temp Regulation Devices Entry 1 Temp Regulation Temperature Warm blankets, Room Regulation Device temperature, Forced Air Warming device Temperature 66039 Regulation Device Serial/Unit Number Temperature Upper body Regulation Site Temperature Device 43 C Setting Temperature ALEX BLACK Dmitriy, PRODUCT EXAMINER Regulation Device Applied by Last Modified By: ISAÍAS RINCON RN 12/14/18 15:49:45 [facility] IntraOP Time Out Entry 1 Procedure [...] Modified By: ISAÍAS RINCON RN 12/14/18 15:38:26 [facility] IntraOp X-Ray and Images Entry 1 X-Ray/Imaging Type Fluoroscopy Fluoroscopy Type C-Arm Site OP SITE Children'S Attendant Name Kendy Raymond, Diagnostic Customer Solutions Teammate Last Modified By: ISAÍAS RINCON RN 12/14/18 15:49:16 Case Comments <None> Finalized By: TOSHIA ROSARIO Document Signatures Signed By: ISAÍAS RINCON RN 12/14/18 16:23 TOSHIA ROSARIO 12/16/18 13:56 Unfinalized History Date/Time Username Reason for Unfinalizing Freetext Reason for Unfinalizing 12/16/18 13:55 [email or web address] Correct Billing Electronically signed by Michelet [facility] Conversion Autocad Designer Cerner at 02/02/2023 12:32 PM CDT documented in this encounter Plan of Treatment Not on file documented as of this encounter Visit Diagnoses Not on filedocumented in this encounter
--- OUTSIDE RECORDS SUMMARY | 2025-07-02 10:25 | XMS_ITS | Encounter Summary ---
Author Organization [employer] ([place], [place], [place], [place]) Address [address] [place] [address] Care Team Providers Care Net Programmer Name Role Phone Unavailable Primary Care Provider Unavailabl e Encounter Details Date Type Department Care Team (Late st Contact Info) Description 12/14/2018 Transcribed Document [facility] [place] Family [place] [facility] [place] [address] ProviderHelen MD [address] [place] [address] Social History Tobacco Use Types Packs/Day Years Used Date Smoking Tobacco: Never Assessed Comments Unknown Sex and Gender Information Value Date Recorded Sex Assigned at Not on file Legal Sex Female 2:04 PM CDT Gender Identity Not on file Sexual Orientation Not on file documented as of this encounter Miscellaneous Notes * Cerner Conversion Note - Helen ProviderMD - 12/14/2018 6:20 PM PASSENGER COACH DRIVER [address] [address] Patient Copy Patient Information: Name: BERNICE NAVARRETE Current Date: 12/14/2018 18:20:06 : 1945 Patient Address: [address] [place] [address] Patient Attending Physician: ASHOK CHENG MD-SNU Primary Care Provider: MUSTAPHA EASTMAN MD-[facility] Primary Care Provider Discharge Diagnosis: Weight on Admission: 167 lb, 8 oz Comment: Follow-up Instructions: With: Address: When: ASHKO CHENG [address] [facility], [address] [place] [address] Business (1) 3:15 PM Comments: Appointment has [...] Care after Discharge Comment: Follow [facility] Neurosurgery. Immunizations Documented During Stay: No [...] and water are not available, use hand research/program director. ? Change your dressing as told by [...] or a bad smell. Medicines ??? Take doed-irt-tuqtprd and prescription medicines only as told by [...] urine clear or pale yellow. ? Take vkdu-vns-frcunou or prescription medicines. ? Eat foods that [...] 04/21/2006 Document Revised: 05/18/2017 Document Reviewed: 03/19/2017 [employer] Interactive Patient Education ? 2017 [employer] Inc. General Anesthesia, Adult, Care After These [...] activities are safe for you. ??? Take gjcy-asx-tgxhtkk and prescription medicines only as told by [...] 01/08/2002 Document Revised: 03/06/2017 Document Reviewed: 09/15/2016 [employer] Interactive Patient Education ? 2017 [employer] Inc. Medication Leaflets: acetaminophen and hydrocodone (a SEET a MIN oh fen and long droe KOE done) Hycet, Lorcet, Pyrites, Verdrocet, Vicodin, Xodol, Zamicet What is the [...] may report side effects to FDA at 7-096-LFX-2882. What other drugs will affect acetaminophen and [...] affect acetaminophen and hydrocodone, including prescription and gjho-ypt-hvhivzb medicines, vitamins, and herbal products. Not all [...] to ensure that the information provided by [employer]. ('[employer]') is accurate, up-to-date, and complete, but no guarantee is made to that effect. Drug information contained herein may be time sensitive. [employer] information has been compiled for use by healthcare practitioners and consumers in the [place] and therefore [employer] does not warrant that uses outside of the [place] are appropriate, unless specifically indicated otherwise. [employer]'s drug information does not endorse drugs, diagnose patients or recommend therapy. [employer] drug information is an informational resource designed [...] effective or appropriate for any given patient. [employer] does not assume any responsibility for any aspect of healthcare administered with the aid of information [employer] provides. The information contained herein is not intended to cover all possible uses, directions, precautions, warnings, drug interactions, allergic reactions, or adverse effects. If you have questions about the drugs you are taking, check with your doctor, nurse or pharmacist. Copyright 4997-4510 [employer]. Version: 15.02. Revision Date: 08/20/2018. cyclobenzaprine (benedicto [...] may report side effects to FDA at 6-091-CJW-0012. What other drugs will affect cyclobenzaprine? Using [...] drugs may affect cyclobenzaprine, including prescription and jeij-zmk-baeaafw medicines, vitamins, and herbal products. Not all [...] to ensure that the information provided by [employer]. ('[employer]') is accurate, up-to-date, and complete, but no guarantee is made to that effect. Drug information contained herein may be time sensitive. [employer] information has been compiled for use by healthcare practitioners and consumers in the [place] and therefore [employer] does not warrant that uses outside of the [place] are appropriate, unless specifically indicated otherwise. [employer] drug information does not endorse drugs, diagnose patients or recommend therapy. [employer] drug information is an informational resource designed [...] effective or appropriate for any given patient. [facility] does not assume any responsibility for any aspect of healthcare administered with the aid of information [facility] provides. The information contained herein is not intended to cover all possible uses, directions, precautions, warnings, drug interactions, allergic reactions, or adverse effects. If you have questions about the drugs you are taking, check with your doctor, nurse or pharmacist. Copyright 3622-4649 [employer]. Version: 5.01. Revision Date: 07/11/2018. CIGARETTE SMOKING: The facts are clear, cigarette smoking will shorten your life. Smoking can cause many illnesses along the way. As a healthcare provider, we recommend that you stop smoking. Assistance with quitting is available by contacting 4-616-PBXCFastCallNOW. This is a free resource providing counseling, [...] Be sure to sign up for the [employer] patient portal, which gives you 08/05 access to your medical information ??? including these discharge instructions ??? using your computer, smartphone, or tablet. Just go to [employer] to get started. Questions? Call . [facility] would like to thank you for allowing us to assist you with your healthcare needs. ROSALBA Parker CATHERINE M, (or access service representative) have received the above patient education materials/instructions and have verbalized understanding: Patient Signature _ Date/Time Patient Supervisor [employer] Signature (if needed) Date/Time Clinician/Hospital Supervisor [employer] Signature (if needed) Date/Time Electronically signed by Michelet [facility] Conversion [employer] Pack[employer] Leak Tester Cerner at 02/02/2023 12:15 PM CDT documented in this encounter Plan of Treatment Not on file documented as of this encounter Visit Diagnoses Not on filedocumented in this encounter
--- OUTSIDE RECORDS SUMMARY | 2025-07-02 10:25 | XMS_ITS | Encounter Summary ---
Author Organization [employer] ([place], [place], [place], [place]) Address [address] [place] [address] Care Team Providers Care Collision Repairer Name Role Phone Unavailable Primary Care Provider Unavailabl e Encounter Details Date Type Department Care Team (Late st Contact Info) Description 12/14/2018 Transcribed Document [facility] [place] Family Medicine [facility] [place] [address] Helen Agee MD [address] [place], [place] [id number] Social History Tobacco Use Types Packs/Day Years Used Date Smoking Tobacco: Never Assessed Comments Unknown Sex and Gender Information Value Date Recorded Sex Assigned at Not on file Legal Sex Female 2:04 PM CDT Gender Identity Not on file Sexual Orientation Not on file documented as of this encounter Miscellaneous Notes * Cerner Conversion Note - Helen Agee MD - 12/14/2018 6:20 PM LAY OUT TECHNICIAN Patient Education Materials Follows: Laminectomy, Care After [...] and water are not available, use hand fire manager. ? Change your dressing as told [...] or a bad smell. Medicines ??? Take fasv-tko-nwapuyn and prescription medicines only as told by [...] urine clear or pale yellow. ? Take fmfb-lyb-rkvgydu or prescription medicines. ? Eat foods that [...] 04/21/2006 Document Revised: 05/18/2017 Document Reviewed: 03/19/2017 [employer] Interactive Patient Education ? 2017 [employer] Pharmacology General Anesthesia, Adult, Care After [...] activities are safe for you. ??? Take jivk-utl-ppgcjqk and prescription medicines only as told by [...]
--- OUTSIDE RECORDS SUMMARY | 2025-07-02 10:25 | XMS_ITS | Patient Health Record ---
Author Organization [facility] Address [address] [id number] Care Team Providers Care Intelligence Officer Name Role Phone Jame Gilbert Primary Care [...] Vaccine Route Administration Date Status Comme nts DT, 7 YEARS OR OLDER Unknown 12/20/1996 Administered PNEUMOVAX 23 VACCINE IM Intramuscular 02/03/2017 Administe red xFlu shot-36 months and older IM Intramuscular 08/18/2005 Administered xFlu shot-36 months and older IM Intramuscular 08/25/2006 Administered xFluzone (6mos and older)-trivalent IM Intramuscular 10/03/2014 Administered xFluzone High Dose-private (65yr&older) Unknown 11/21/2016 Administered xFluzone High Dose-private (65yr&older) Unknown 11/21/2016 Administered xFluzone High Dose-private (65yr&older) Unknown 07/06/2019 Administered Tetanus Tdap-Adacel (over 7yrs) IM Intramuscular 10/02/2018 Administered Prevnar (PCV13) IM Intramuscular 11/14/2014 Administered Prevnar (PCV13) Unknown 07/31/2015 Pending Prevnar (PCV13) IM Intramuscular 09/15/2015 Administered Fluzone High Dose (65yr and older) IM Intramuscular 09/15/2015 Administered Fluzone High Dose (65yr and older) IM Intramuscular 08/15/2017 Administered Fluzone High Dose (65yr and older) IM Intramuscular 08/07/2018 Administered Fluzone High Dose (65yr and older) Unknown 07/24/2020 Administered Fluzone High Dose (65yr and older) IM Intramuscular 07/06/2021 Administered COVID 19 Moderna Unknown 12/16/2020 Administered COVID 19 Moderna Unknown 01/12/2021 Administered COVID 19 Moderna Unknown 09/01/2021 Administered Problems Problem Type SNOMED Code ICD Code Onset Dates Problem Status W/U Status Risk Notes Problem Essential hypertension (62366070) Essential (primary) hypertension (I10) Active confirmed Problem Low back pain (241208783) Low back pain (M54.5) Active confirmed Problem Pain of right shoulder region (finding) (9160068162) Pain in right shoulder (M25.511) Active confirmed Problem Vitamin D deficiency (65547145) Vitamin D deficiency (E55.9) Active confirmed Problem Essential hypertension (14328712) Essential hypertension (I10) Active confirmed Problem Cardiac dysrhythmia (379848496) Cardiac dysrhythmia (I49.9) Active confirmed Problem Liver enzymes abnormal (125322259) Abnormal liver enzymes (R74.8) Active confirmed Problem Memory loss (30008873) Memory loss (R41.3) Active confirmed Problem Lumbar spinal stenosis (96791337) Lumbar spinal stenosis (M48.06) Active confirmed Problem Corticoadrenal insufficiency (380592037) 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) Active confirmed Problem Mixed hyperlipidemia (564043933) Mixed hyperlipidemia (E78.2) Active confirmed Problem Chronic pain (56915526) Other chronic pain (G89.29) Active confirmed Problem Cardiac arrhythmia (464442085) Other specified cardiac arrhythmias (I49.8) Active confirmed Problem Occlusion and stenosis of multiple and bilateral cerebral arteries (249378934) Occlusion and stenosis of bilateral carotid arteries (I65.23) Active confirmed Problem Shoulder joint pain (866666387) Pain in left shoulder (M25.512) Active confirmed Problem Age-related osteoporosis (645271095) Age-related osteoporosis without current pathological fracture (M81.0) Active confirmed Problem Contusion of right foot (27034046681734440) Contusion of right foot, initial encounter (S90.31XA) Active confirmed Problem Hysterectomy (362437716) Acquired absence of both cervix and uterus (Z90.710) Active confirmed Problem Presence of othe r vascular implants and grafts (Z95.828) Active confirmed Problem Arteriosclerotic vascular disease (07524574) Arteriosclerotic cardiovascular disease (I25.10) Active confirmed Problem Adrenal insufficiency (045515399) Adrenal insufficiency (E27.40) Active confirmed Problem Right foot drop (528423319480585) Foot drop, right (M21.371) Active confirmed Problem Mixed anxiety and depressive disorder (182795055) Anxiety associated with depression (F41.8) Active confirmed Problem New daily persistent headache (253877840226128) New daily persistent headache (G44.52) Active confirmed Problem Cardiac arrhythmia (774748762) Atrial dysrhythmia (I49.8) Active confirmed Problem Iron deficiency anemia due to chronic blood loss (482067492) Iron deficiency anemia due to chronic blood loss (D50.0) Active confirmed Problem Iron deficiency anemia (38585233) Iron deficiency anemia, unspecified iron deficiency anemia type (D50.9) Active confirmed Problem Atrial fibrillation (69081833) Atrial fibrillation, unspecified type (I48.91) Active confirmed Problem Hyperlipidaemia (68824314) Hyperlipidemia, unspecified hyperlipidemia type (E78.5) Active confirmed Problem Abnormal gait (04177161) Imbalance (R26.89) Active confirmed Problem Stenosis of right carotid artery (885635750742643) Stenosis of right carotid artery (I65.21) Active confirmed Problem Osteoarthritis (984068487) Osteoarthrosis involving more than one site, but not specified as generalized (M15.9) Active confirmed Problem Esophageal reflux (012051373) Esophageal reflux (K21.9) Active confirmed Problem Chronic lung disease (597609487) Chronic lung disease (J98.4) Active confirmed Problem Abnormal liver function (94274657) Abnormal liver function (K76.89) Active confirmed Problem Postmenopausal bleeding (68753012) Post-menopausal bleeding (N95.0) Active confirmed Problem Cardiac dysrhythmia (936105715) Cardiac dysrhythmia, unspecified (I49.9) Active confirmed Problem Urinary incontinence (923802348) Urinary incontinence, unspecified type (R32) Active confirmed Problem Atherosclerotic heart disease of [place] coronary artery without angina pectoris (637192795883730) Atherosclerosis of [place] coronary artery without angina pectoris, unspecified whether [place] or transplanted heart (I25.10) Active confirmed Problem Occlusion and stenosis of multiple and bilateral cerebral arteries (315357221) Bilateral carotid artery stenosis (I65.23) Active confirmed Problem Pain of left hip joint (130798538193441) Pain of left hip joint (M25.552) Active confirmed Problem Radiculopathy (18563568) Radiculopathy affecting upper extremity (M54.10) Active confirmed Problem Hysterectomy (413650213) Status post hysterectomy (Z90.710) Active confirmed Problem Localized, primary osteoarthritis of the hand (526319815) Arthropathy of hand (M19.049) Active confirmed Problem Spinal stenosis of lumbar region (30078418) Spinal stenosis of lumbar region, unspecified whether neurogenic claudication present (M48.061) Active confirmed Problem Chronic hypoxemic respiratory failure (656505012) Chronic hypoxemic respiratory failure (J96.11) Active confirmed Problem Status post angioplasty with stent (Z95.820) Active confirmed Problem Cervical arthritis (disorder) (722156228) 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) Active confirmed Problem Shoulder joint pain (894302831) Shoulder pain, unspecified chronicity, unspecified laterality (M25.519) Active confirmed Problem Parotitis (29982361) Parotitis (K11.20) Active confirmed Problem Anemia (875969743) Acute anemia (D64.9) Active confirmed Encounters Encounter Location Date Provider Diagnosis [facility] [address] [id number] 11/15/2024 Jame Gilbert [facility] [address] [id number] 12/27/2024 Jame Gilbert Plan Of Treatment No Information Insurance Providers Payer Name Payer Address Payer Phone Subscriber Number Group Number Insured Name Patient Relationship to Insured Coverage Start Date Coverage End Date [employer] (MEDICAR E) [address] [address] [place] [address] [id number] BERNICE NAVARRETE Self - patient is the [...]
--- OUTSIDE RECORDS SUMMARY | 2025-07-02 10:25 | XMS_ITS | Encounter Summary ---
Author Organization [employer] ([place], [place], [place], [place]) Address [address] [place] [address] Care Team Providers Care Plate Driller Name Role Phone Unavailable Primary Care Provider Unavailabl e Encounter Details Date Type Department Care Team (Late st Contact Info) Description 12/14/2018 Transcribed Document [facility] Family Medicine [address] [place] [address] ProviderHelen MD [address] [place], [place] [id number] Social History Tobacco Use Types Packs/Day Years Used Date Smoking Tobacco: Never Assessed Comments Unknown Sex and Gender Information Value Date Recorded Sex Assigned at Not on file Legal Sex Female 2:04 PM CDT Gender Identity Not on file Sexual Orientation Not on file documented as of this encounter Miscellaneous Notes * Cerner Conversion Note - Historical ProviderMD - 12/14/2018 3:38 PM SOCIAL SCIENCES CHAIR [facility] Main OR PostOp Summary Primary Physician: ASHOK CHENG MD-[facility] Finalized Date/Time: 12/14/18 18:24:11 Pt. Name: BERNICE NAVARRETE/Sex: 1945 Female Med Rec #: [id number] Physician: ASHOK CHENG MD-[facility] Financial #: [id number] Pt. Type: O Room/Bed: Admit/Disch: 12/14/18 11:04:00 - Institution: [facility] Main [facility] PostOp Case Times Entry 1 In PACU II 12/14/18 18:00:00 Ready for PACU II 12/14/18 18:20:00 Discharge Discharge from PACU 12/14/18 18:25:00 II Last Modified By: Jalyn Fermin RN 12/14/18 18:23:56 [facility] Main [facility] PostOp Case Times Audit 12/14/18 18:23:56 Electronic System Engineer: [email or web address] Modifier: RAMEZALR 1 <*> Discharge from PACU II 12/14/18 18:20:00 12/14/18 18:17:07 Electronic System Engineer: RAMEZALR Modifier: RAMEZALR <+> 1 Ready for [...]
--- OUTSIDE RECORDS SUMMARY | 2025-07-02 10:25 | XMS_ITS | Encounter Summary ---
Author Organization [employer] ([place], [place], [place], [place]) Address [address] [place] [address] Care Team Providers Care Insulation Worker Apprentice Name Role Phone Unavailable Primary Care Provider Unavailabl e Encounter Details Date Type Department Care Team (Late st Contact Info) Description 12/14/2018 Transcribed Document [facility] Neurology - [address] [facility] [address] [place] [id number] Francisco Herndon MD [address] [facility] [address] [place] [address] Social History Tobacco Use Types [...] invasive L4-5 laminectomy. SURGEON: Francisco Herndon MD PROFESSOR OF GEOGRAPHY: Endy Hogue. TYPE OF ANESTHESIA: GEA. DESCRIPTION [...] Francisco Herndon M.D. CC2: Dr. Nabil Gilbert; [id number] [address], [address], [place] [address]; [phone] documented in this encounter Plan of Treatment Not on file documented as of this encounter Visit Diagnoses Not on filedocumented in this encounter
--- OUTSIDE RECORDS SUMMARY | 2025-07-02 10:25 | XMS_ITS | Encounter Summary ---
Author Organization [employer] ([place], [place], [place], [place]) Address [address] [place] [address] Care Team Providers Care Tack Cutter Name Role Phone Unavailable Primary Care Provider Unavailabl e Encounter Details Date Type Department Care Team (Late st Contact Info) Description 12/13/2018 Transcribed Document [facility] Family Medicine [address] [place] [address] ProviderHelen MD [address] [place], [place] [id number] Social History Tobacco Use Types Packs/Day Years Used Date Smoking Tobacco: Never Assessed Comments Unknown Sex and Gender Information Value Date Recorded Sex Assigned at Not on file Legal Sex Female 2:04 PM CDT Gender Identity Not on file Sexual Orientation Not on file documented as of this encounter Miscellaneous Notes * Cerner Conversion Note - Historical ProviderMD - 12/13/2018 1:56 PM TRANSPORTATION SUPERVISOR PAT Adult Entered On: 12/13/2018 14:00 EST Performed On: 12/13/2018 13:56 EST by ANDREW HINES RN Pain Assessment Pain Assessment : Initial assessment Pain Location Comment : denies pain JEWELS PURVIS RN - 12/14/2018 12:06 EST Height and Weight, Clinical Dosing Height Source : Measured Height Entry Format : [place] Height, Feet : 0 ft(Converted to: 0 cm, 0 Inch) Height, Inches : 63 Inch(Converted to: 5 ft 3 Inch, 160.02 cm) Clinical Height : 160.02 cm Weight Source : Standing scale Weight Entry Format : [place] Clinical Dosing Weight : 76.14 kg Weight, Pounds : 167.5 lb Body Surface Area (BSA) : 1.8 m2 Body Mass Index : 29.7 kg/m2 (HI) Martelle Body Weight : 52 kg JEWELS PURVIS [...] 13:56 EST General Info Primary Language : Eritrean Communication Barrier : None JEWELS PURVIS RN [...]
--- OUTSIDE RECORDS SUMMARY | 2025-07-02 10:25 | XMS_ITS | Clinical Summary ---
Author Organization [facility] Address [address] [place] [address] Care Team Providers Care Wind Energy Technician Name Role Phone Nabil Gilbert MD Primary Care Provider [phone] [phone] Allergies Active Allergy Reactions Criticality Noted Date [...] ICA stenosis Overview (02/08/2019): a. Cerebral angiogram, [facility], 11/21/2014: Bilateral patent vertebral arteries with less than 50% [place] stenosis and greater than 70% LICA stenosis. b. Carotid angiogram, 12/26/2014: Advanced atherosclerotic plaque at the left carotid bifurcation equaling about 72%, [id number] changes of fibromuscular dysplasia involving the mid- [...] 018, 12/20/1996 Medical Devices Implanted Type Area Pbx Technician Device Identifier Shelf Expiration Date Model / Serial / Lot Stent Wall Carotid Mr 5.9f [id number] 135cm - [id number] Implanted:Qty: 1 on 02/08/2019 by Dada Stevens MD at [facility] [employer] [id number] / / Procedures Procedure Name Priority Date/Time Associated Diagnosis Comments LIPID PANEL Routine 01/15/2019 12:11 PM EDT Routine general medical examination at a health care facility [ICD-10-CM] from Last 3 Months or Most Recently Relevant to Health Maintenance Results * (ABNORMAL) Lipid Panel (01/15/2019 12:11 PM EDT) Total Cholesterol 156 0 - 200 mg/dL 01/15/2019 12:57 PM EDT [facility] Triglycerides 330(H) 0 - 150 mg/dL 01/15/2019 12:57 PM EDT [facility] HDL Cholesterol 38(L) 40 - 60 mg/dL 01/15/2019 12:57 PM EDT [facility] LDL Cholesterol 63 0 - 130 mg/dL 01/15/2019 12:57 PM EDT [facility] Blood Venipuncture / Unknown 01/15/2019 12:11 PM EDT 01/15/2019 12:11 PM EDT [facility] - 01/15/2019 12:57 PM EDT [...] BLOOD ORDERABLES Final Re sult [facility]
[address] [id number], from Last 3 Months or Most Recently Relevant to Health Maintenance Insurance Advance Directives Documents on File Type Date Recorded Patient Birth Attendant Expl anation POWER OF THERAPIST PHYS - SCAN 12/19/2017 1:39 PM DURABLE POA [...] Of Support Discussed With: Patient Care Teams Wind Energy Technician Relationship Specialty Start Date End Date Nabil Gilbert MD [address] [facility] [address] [place] [address] PCP - General 12/22/15
--- OUTSIDE RECORDS SUMMARY | 2025-07-02 10:25 | XMS_ITS | Encounter Summary ---
Author Organization [employer] ([place], [place], [place], [place]) Address [address] [place] [address] Care Team Providers Care Manager Enterprise Content Management Name Role Phone Unavailable Primary Care Provider Unavailabl e Encounter Details Date Type Department Care Team (Late st Contact Info) Description 12/14/2018 Transcribed Document [facility] Medicine [facility] [place] [address] ProviderHelen MD [address] [place] [id number] Social History Tobacco Use Types Packs/Day Years Used Date Smoking Tobacco: Never Assessed Comments Unknown Sex and Gender Information Value Date Recorded Sex Assigned at Not on file Legal Sex Female 2:04 PM CDT Gender Identity Not on file Sexual Orientation Not on file documented as of this encounter Miscellaneous Notes * Cerner Conversion Note - Historical ProviderMD - 12/14/2018 6:18 PM BOAT PERSON Nursing Discharge Summary Entered On: 12/14/2018 18:18 [...] 12/14/2018 18:18 EST Electronically signed by [facility] Conversion Waste Oil Pumper Cerner at 02/02/2023 12:18 PM CDT documented in this encounter Plan of Treatment Not on file documented as of this encounter Visit Diagnoses Not on filedocumented in this encounter
--- OUTSIDE RECORDS SUMMARY | 2025-07-02 10:25 | XMS_ITS | Referral Summary ---
Author Organization [employer] [facility] ([place], [place], [place], [place]) Address [address] [place] [address] Care Team Providers Care Federal Judge Name Role Phone Unavailable Primary Care Provider [...]
== END 2025-07-01 23:59 ==
LOC: LAB.DROPOF 07-02 10:22
PROVIDERS: PCP Family Medicine; Visit Provider Family Medicine
DX: D64.9 Anemia, unspecified (principal); Z79.52 Long term (current) use of systemic steroids; N39.0 Urinary tract infection, site not specified
CPT/HCPCS: 80048; 85025; 87086; 87088

== ENCOUNTER 2025-07-30 16:04 | Outpatient (CLI) | payer MEDICARE, SELFPAY ==
--- OUTSIDE RECORDS SUMMARY | 2025-07-30 16:07 | XMS_ITS | Clinical Summary ---
Author Organization [facility] Address [address] [place] [address] Care Team Providers Care Lead Teller Name Role Phone Nabil Gilbert MD Primary Care Provider [phone] [phone] Allergies Active Allergy Reactions Criticality Noted Date [...] ICA stenosis Overview (02/08/2019): a. Cerebral angiogram, [facility], 11/21/2014: Bilateral patent vertebral arteries with less than 50% [place] stenosis and greater than 70% LICA stenosis. b. Carotid angiogram, 12/26/2014: Advanced atherosclerotic plaque at the left carotid bifurcation equaling about 72%, [id number] changes of fibromuscular dysplasia involving the mid- [...] 11/2018, 12/19/2017, Additional history exists INFLUENZA VACCINE 05/16/2025 07/06/2019, , 08/07/2018, Additional history exists COVID-19 Vaccine (2023-2 5 season) 2025 TDAP/TD VACCINES (3 - Td or Tdap) 10/02/2028 018, 12/20/1996 Medical Devices Implanted Type Area Assistant Finance Manager Device Identifier Shelf Expiration Date Model / Serial / Lot Stent Wall Carotid Mr 5.9f [id number] 135cm - [id number] Implanted:Qty: 1 on 02/08/2019 by Dada Stevens MD at [facility] [employer] [id number] / / Procedures Procedure Name Priority Date/Time Associated Diagnosis Comments LIPID PANEL Routine 01/15/2019 12:11 PM EDT Routine general medical examination at a health care facility [ICD-10-CM] from Last 3 Months or Most Recently Relevant to Health Maintenance Results * (ABNORMAL) Lipid Panel (01/15/2019 12:11 PM EDT) Total Cholesterol 156 0 - 200 mg/dL 01/15/2019 12:57 PM EDT [facility] Triglycerides 330(H) 0 - 150 mg/dL 01/15/2019 12:57 PM EDT [facility] HDL Cholesterol 38(L) 40 - 60 mg/dL 01/15/2019 12:57 PM EDT [facility] LDL Cholesterol 63 0 - 130 mg/dL 01/15/2019 12:57 PM EDT [facility] Blood Venipuncture / Unknown 01/15/2019 12:11 PM EDT 01/15/2019 12:11 PM EDT [facility] - 01/15/2019 12:57 PM EDT [...] MD LAB BLOOD ORDERABLES Final Re sult [facility]
[address] [id number], from Last 3 Months or Most Recently Relevant to Health Maintenance Insurance Advance Directives Documents on File Type Date Recorded Patient Ash Worker Expl anation POWER OF ACADEMIC SUPPORT DIRECTOR - SCAN 12/19/2017 1:39 PM DURABLE POA [...] Of Support Discussed With: Patient Care Teams Lead Teller Relationship Specialty Start Date End Date Nabil Gilbert MD [address] [facility] [address] [place] [address] PCP - General 12/22/15
--- OUTSIDE RECORDS SUMMARY | 2025-07-30 16:07 | XMS_ITS | Clinical Summary ---
Author Organization [facility] Address [facility] [place] [address] Phone Care Team Providers Care Turpentine Farmer Name Role Phone Riley Ogden MD Unavailable Ramonita Anguiano MD Unavailable [phone] Nabil Gilbert MD Primary Care Provider [phone] -[phone] Allergies Active Allergy Reactions Criticality Noted Date [...] Advance Directives For more information, please contact: [phone] Documents on File Type Date Recorded Patient Manager Of Finance Expl anation Power of Ob Scrub Tech 03/27/2018 8:22 AM Advance Directives/DNR 01/09/2018 6:18 PM Care Teams Turpentine Farmer Relationship Specialty Start Date End Date Nabil Gilbert MD [facility] [place] [address] PCP - General Family Medicine 12/29/17 Riley Ogden MD [address] [place] [address] [place] [address] Consulting Physician Obstetrics & Gynecology-Gynecologic Oncology 12/22/17 Ramonita Anguiano MD [address] [place] [address] [place] [address] Referring Physician Obstetrics & Gynecology 12/21/17
--- OUTSIDE RECORDS SUMMARY | 2025-07-30 16:07 | XMS_ITS | Encounter Summary ---
Author Organization [place] [address] Care Team Providers Care Manager Programming Name Role Phone Riley Ogden MD Unavailable [phone] Ramonita Anguiano MD Unavailable [phone]- [phone] Nabil Gilbert MD Primary Care Provider [phone] Encounter Details Date Type Department Care Team (Late st Contact Info) Description 04/26/2022 Lab Requisition [facility] [place] [address] Abnormal finding of blood chemistry, [...] [facility] Platelet 136(L) 155 - 369 x10(3)/[facility] 04/26/2022 9:55 PM EDT [facility] MPV 10.1 8.8 - 12.5 fL 04/26/2022 9:55 PM EDT [facility] Blood VENOUS BLOOD / Unknown 04/26/2022 11:30 AM EDT 04/26/2022 9:30 PM EDT us Nabil Gilbert MD HEMATOLOGY ORDERABLES Fin al Result [facility] [address] [facility] , [place] [address] documented in this encounter Visit Diagnoses Diagnosis Abnormal finding of blood chemistry, unspecified documented in this encounter Additional Health Concerns Assessment Noted Time A fall risk assessment has been complete d for the patient 12/11/2017 7:56 AM EST documented as of this encounter Care Teams Manager Programming Relationship Specialty Start Date End Date Nabil Gilbert MD [address] [facility] [address] [place] [address] PCP - General Family Medicine 12/29/17 Riley Ogden MD 1 [facility] [place] [address] Consulting Physician Obstetrics & Gynecology-Gynecologic Oncology 12/22/17 Ramonita Anguiano MD 1 [facility] [place] [address] Referring Physician Obstetrics & Gynecology 12/21/17 documented as of this encounter
--- NOTE | 2025-07-30 16:32 | XR_ITS ---
FINAL REPORT CLINICAL HISTORY: falls, left hip pain FINDINGS: AP and lateral views of the lumbar spine were obtained. There is no prior exam for comparison. There is severe compression deformity of T10, age indeterminate. Vertebral body heights of the lumbar vertebral bodies is preserved. There is mild multilevel degenerative disease of the lumbar spine. No acute paraspinal abnormality. IMPRESSION: Mild degenerative change without acute osseous abnormality of the lumbar spine. Age indeterminate T10 compression deformity. Reviewed, Interpreted and Dictated by Stephanie Miguel MD Transcribed by Katy Lemons Authenticated and [facility]
--- NOTE | 2025-07-30 16:32 | XR_ITS ---
FINAL REPORT CLINICAL HISTORY: falls, right hip pain COMPARISON: 03/25/2024 FINDINGS: AP and frog leg views of the right hip were obtained. There is no acute fracture or dislocation. Degenerative joint disease is unchanged. Vascular calcifications are noted. There is no acute soft tissue abnormality. IMPRESSION: No acute osseous abnormality of the right hip. Reviewed, Interpreted and Dictated by Stephanie Miguel MD Transcribed by Katy Lemons Authenticated and [facility] [place] [place]
--- NOTE | 2025-07-30 16:32 | XR_ITS ---
FINAL REPORT CLINICAL HISTORY: falls, left hip pain COMPARISON: 03/25/2024 FINDINGS: An AP view of the pelvis and a frog leg view of the left hip were obtained. 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 Hardware appears intact. There is no acute fracture. No evidence of hardware complication. No acute soft tissue abnormality. IMPRESSION: No acute osseous abnormality of the left hip. Reviewed, Interpreted and Dictated by Stephanie Miguel MD Transcribed by Katy Lemons Authenticated and [facility] [place]
[2025-07-30 16:35] LABS: Hematocrit 32.5 % (37.0-47.0); Hemoglobin 10.4 g/dL (12.2-16.2); Immature Granulocytes % 1.8 %; Mean Corpuscular HGB Conc 32.0 g/dL (31.8-35.4); Mean Corpuscular Hemoglobin 29.9 pg (27.0-31.2); Mean Corpuscular Volume 93.4 fl (81-99); Nucleated Red Blood Cells % 0 %; Platelet Count 133 K/mm3 (142-424); Red Blood Count 3.48 M/mm3 (4.20-5.40); Red Cell Distribution Width-SD 50.1 fL; White Blood Count 7.3 K/mm3 (4.8-10.8)
[2025-07-30 17:01] LABS: D-Dimer 0.86 ug/mL (0.0-0.5)
[2025-07-30 18:01] LABS: Alanine Aminotransferase 20 U/L (12-78); Albumin Level 3.9 g/dl (3.5-5.0); Albumin/Globulin Ratio 1.6 (1.1-1.8); Alkaline Phosphatase 91 U/L (38-126); Anion Gap 15.5 mEq/L (5-15); Aspartate Amino Transferase 26 U/L (14-36); Bilirubin,Total 0.5 mg/dl (0.2-1.3); Blood Urea Nitrogen 25 mg/dl (7-17); Calcium 9.0 mg/dl (8.4-10.2); Carbon Dioxide 26 mmol/L (22.0-30.0); Chloride 102 mmol/L (98-107); Creatinine,Serum 0.80 mg/dl (0.52-1.04); Estimated Glomerular Filt Rate 69 ml/min (>60); GFR (African American) 83 ML/MIN (>60); Globulin 2.4 g/dL (1.3-3.2); Glucose 182 mg/dl (74-100); Potassium 4.5 mmoL/L (3.5-5.1); Sodium 139 mmol/L (136-145); Total Protein,Serum 6.3 g/dl (6.3-8.2)
[2025-07-30 18:06] LABS: Creatine Kinase < 20 U/L (30-135)
== END 2025-07-30 23:59 | disposition home or self-care (01) ==
PROVIDERS: PCP Family Medicine; Visit Provider Nurse Practitioner
DX: M47.816 Spondylosis without myelopathy or radiculopathy, lumbar region (principal); S22.070D Wedge compression fracture of T9-T10 vertebra, subsequent encounter for fracture with routine healing; M25.552 Pain in left hip; M25.551 Pain in right hip; R29.6 Repeated falls; R53.1 Weakness; R30.0 Dysuria; W19.XXXD Unspecified fall, subsequent encounter
CPT/HCPCS: 36415; 72100; 73502; 80053; 82550; 85025; 85378; 87086; 87088; 87186

== ENCOUNTER 2025-08-04 10:43 | Outpatient (CLI) | payer MEDICARE, SELFPAY ==
--- OUTSIDE RECORDS SUMMARY | 2025-08-04 10:58 | XMS_ITS | Clinical Summary ---
Author Organization [employer] [facility] ([place], [place], [place], [place]) Address [address] [place] [address] Care Team Providers Care Biometrics Specialist Name Role Phone Unavailable Primary Care [...]
--- OUTSIDE RECORDS SUMMARY | 2025-08-04 10:58 | XMS_ITS | Encounter Summary ---
Author Organization [employer] ([place], [place], [place], [place]) Address [address] [place] [address] Care Team Providers Care Supervisor Product Inspection Name Role Phone Unavailable Primary Care Provider Unavailabl e Encounter Details Date Type Department Care Team (Late st Contact Info) Description 12/14/2018 Transcribed Document [facility] [address] [facility] [address] [place] [phone] Francisco Herndon MD [address] [facility] [address] [place] [id number] Social History Tobacco Use Types Packs/Day Years [...] the office by Dr. Herndon presents to [facility] for L4-5 MIS decompression possible laminectomy. [...]
--- OUTSIDE RECORDS SUMMARY | 2025-08-04 10:58 | XMS_ITS | Encounter Summary ---
Author Organization [employer] ([place], [place], [place], [place]) Address [address] [place] [address] Care Team Providers Care Spanisher Name Role Phone Unavailable Primary Care Provider Unavailabl e Encounter Details Date Type Department Care Team (Late st Contact Info) Description 12/14/2018 Transcribed Document [facility] [place] Family Medicine [address] [place] [address] ProviderHelen MD [address] [place], [place] [phone] Social History Tobacco Use Types Packs/Day Years Used Date Smoking Tobacco: Never Assessed Comments Unknown Sex and Gender Information Value Date Recorded Sex Assigned at Not on file Legal Sex Female 2:04 PM CDT Gender Identity Not on file Sexual Orientation Not on file documented as of this encounter Miscellaneous Notes * Cerner Conversion Note - Historical ProviderMD - 12/14/2018 3:38 PM ANALYTICS INTERN [facility] Main OR PACU Summary Primary Physician: ASHOK CHENG MD-SNU Finalized Date/Time: 12/14/18 18:32:38 Pt. Name: BERNICE NAVARRETE/Sex: 1945 Female Med Rec #: [id number] Physician: ASHOK CHENG MD-SNU Financial #: [id number] Pt. Type: O Room/Bed: Admit/Disch: 12/14/18 11:04:00 - Institution: [facility] Main OR PACU I Case Times Entry 1 In PACU I 12/14/18 16:25:00 Ready for PACU 12/14/18 17:20:00 Discharge Discharge from PACU 12/14/18 18:00:00 I Last Modified By: LARA CHOI RN 12/14/18 18:32:[address] [facility] Main OR PACU Acuity Entry 1 Start Time 12/14/18 17:20:00 Stop Time 12/14/18 18:00:00 Acuity Level [facility] PACU Acuity I Last Modified By: LARA CHOI RN 12/14/18 18:32:36 Finalized By: LARA CHOI, RN Document Signatures Signed By: LARA CHOI RN 12/14/18 18:32 Electronically signed by Michelet [facility] Conversion Resistor Testing Machine Operator Cerner at 02/02/2023 12:30 PM CDT documented in this encounter Plan of Treatment Not on file documented as of this encounter Visit Diagnoses Not on filedocumented in this encounter
--- OUTSIDE RECORDS SUMMARY | 2025-08-04 10:58 | XMS_ITS | Encounter Summary ---
Author Organization [employer] ([place], [place], [place], [place]) Address [address] [place] [address] Care Team Providers Care Shiftman Name Role Phone Unavailable Primary Care Provider Unavailabl e Encounter Details Date Type Department Care Team (Late st Contact Info) Description 12/14/2018 Transcribed Document [facility] [address] [place] [address] ProviderHelen MD [address] [place], [place] [phone] Social History Tobacco Use Types Packs/Day Years Used Date Smoking Tobacco: Never Assessed Comments Unknown Sex and Gender Information Value Date Recorded Sex Assigned at Not on file Legal Sex Female 2:04 PM CDT Gender Identity Not on file Sexual Orientation Not on file documented as of this encounter Miscellaneous Notes * Cerner Conversion Note - Historical ProviderMD - 12/14/2018 3:38 PM PLAN COORDINATOR [facility] Main OR Preop Summary Primary Physician: ASHOK CHENG MD-SNU Finalized Date/Time: 12/14/18 16:03:23 Pt. Name: BERNICE NAVARRETE/Sex: 1945 Female Med Rec #: [id number] Physician: ASHOK CHENG MD-U Financial #: [id number] Pt. Type: O Room/Bed: Admit/Disch: 12/14/18 11:04:00 - Institution: [facility] PreOp Case Times Entry 1 In Preop 12/14/18 11:12:00 Ready for Holding n/a Room Patient Ready for 12/14/18 12:34:00 Surgery Patient Out of Preop 12/14/18 15:10:00 Patient Out of n/a Holding Room Last Modified By: WILLA CIFUENTES RN 12/14/18 16:03:22 [facility] PreOp Case Times Audit 12/14/18 16:03:22 Operations/Dispatch: KELIN Modifier: GERSHIN <+> 1 Patient Out of Preop 12/14/18 12:35:01 Operations/Dispatch: KELIN Modifier: KELIN <+> 1 Patient Ready for Surgery Finalized By: WILLA CIFUENTES, RN Document Signatures Signed By: WILLA CIFUENTES RN 12/14/18 16:03 documented in this encounter Plan of Treatment Not on file documented as of this encounter Visit Diagnoses Not on filedocumented in this encounter
--- OUTSIDE RECORDS SUMMARY | 2025-08-04 10:58 | XMS_ITS | Encounter Summary ---
Author Organization [employer] ([place], [place], [place], [place]) Address [address] [place] [address] Care Team Providers Care Farm Laborer Name Role Phone Unavailable Primary Care Provider Unavailabl e Encounter Details Date Type Department Care Team (Late st Contact Info) Description 12/14/2018 Transcribed Document [facility] [place] [address] [place] [address] ProviderHelen MD [address] [place], [place] [phone] Social History Tobacco Use Types Packs/Day Years Used Date Smoking Tobacco: Never Assessed Comments Unknown Sex and Gender Information Value Date Recorded Sex Assigned at Not on file Legal Sex Female 2:04 PM CDT Gender Identity Not on file Sexual Orientation Not on file documented as of this encounter Miscellaneous Notes * Cerner Conversion Note - Historical ProviderMD - 12/14/2018 3:38 PM MOTORIZED SQUAD COMMANDING OFFICER [facility] Main OR IntraOp Summary Primary Physician: ASHOK CHENG MD-SNU Finalized Date/Time: 12/16/18 13:56:08 Pt. Name: BERNICE NAVARRETE Hiram LangfordB./Sex: 1945 Female Med Rec #: [id number] Physician: ASHOK CHENG MD-SNU Financial #: [id number] Pt. Type: O Room/Bed: Admit/Disch: 12/14/18 11:04:00 - Institution: [facility] IntraOp Case Attendance Entry 1 Entry 2 Entry 3 Case Attendee ASHOK CHENG WASSON, SANDRA D, RN RENEE, BOBBY, PA-C MD-SNU Role Performed Surgeon/Proceduralist, Regional Coordinator, First Physician insurance legal assistant First Time In 12/14/18 15:13:00 12/14/18 15:13:00 12/14/18 15:13:00 Time Out 12/14/18 16:23:00 12/14/18 16:23:00 12/14/18 16:23:00 Procedure Lumbar Laminectomy(Left) Lumbar Laminectomy(Left) Lumbar Laminectomy(Left) Other Attendee Superficial Wound Closed By: Last Modified By: ISAÍAS RINCON, RN ISAÍAS RINCON, RN ISAÍAS RINCON, RN 12/14/18 16:23:11 12/14/18 16:23:11 12/14/18 16:23:11 Entry 4 Entry 5 Entry 6 Case Attendee IGGY EVANS LARRY B, SURGICAL INSTRUMENTS INSPECTOR LYLE FIGUEROA MD Role Performed Scrub, First SURGICAL INSTRUMENTS INSPECTOR/Nurse Medical Laboratory Technician Anesthesiologist of Record Time In 12/14/18 15:13:00 12/14/18 15:13:00 12/14/18 15:13:00 Time Out 12/14/18 16:23:00 12/14/18 16:04:00 12/14/18 16:23:00 Procedure Lumbar Laminectomy(Left) Lumbar Laminectomy(Left) Lumbar Laminectomy(Left) Other Attendee Superficial Wound Closed By: Last Modified By: ISAÍAS RINCON, RN ISAÍAS RINCON, RN ISAÍAS RINCON, RN 12/14/18 16:23:11 12/14/18 16:23:11 12/14/18 16:23:11 Entry 7 Entry 8 Case Attendee Kendy Raymond SIMPSON, KRISTEN, SURGICAL INSTRUMENTS INSPECTOR Diagnostic Capping Machine Operator Role Performed Biological Aide SURGICAL INSTRUMENTS INSPECTOR/Nurse Medical Laboratory Technician Time In 12/14/18 15:13:00 12/14/18 16:04:00 Time Out 12/14/18 16:23:00 12/14/18 16:23:00 Procedure Lumbar Laminectomy(Left) Lumbar Laminectomy(Left) Other Attendee Superficial Wound Closed By: Last Modified By: ISAÍAS RINCON, RN ISAÍAS RINCON, RN 12/14/18 16:23:11 12/14/18 16:23:11 [facility] IntraOp Case Attendance Audit 12/14/18 16:23:11 Pad Machine Operator: WASSONSY Modifier: WASSONSY 1 <+> Time Out [...] 8 <*> Procedure Lumbar Laminectomy(Left) 12/14/18 16:05:58 Pad Machine Operator: WASSONSY Modifier: WASSONSY 1 <*> Procedure Lumbar [...] Time In <+> 8 Procedure 12/14/18 15:35:50 Pad Machine Operator: WASSONSY Modifier: WASSONSY 1 <+> Time In [...] Role Performed <+> 7 Procedure 12/14/18 14:55:16 Pad Machine Operator: WASSONSY Modifier: WASSONSY <+> 4 Case Attendee <+> 4 Role Performed <+> 4 Procedure <+> 5 Case Attendee <+> 5 Role Performed <+> 5 Procedure [facility] IntraOp Case Times Entry 1 Patient In Room Time 12/14/18 15:13:00 Out Room Time 12/14/18 16:23:00 Anesthesia Start Time 12/14/18 15:13:00 Stop Time 12/14/18 16:23:00 Surgery / Procedure Times Start Time 12/14/18 15:38:00 Stop Time 12/14/18 16:13:00 Last Modified By: ISAÍAS RINCON RN 12/14/18 16:23:07 [facility] IntraOp Case Times Audit 12/14/18 16:23:07 Pad Machine Operator: WASSONSY Modifier: WASSONSY <+> 1 Out Room Time <+> 1 Stop Time 12/14/18 16:13:39 Pad Machine Operator: WASSONSY Modifier: WASSONSY <+> 1 Stop Time 12/14/18 15:38:29 Pad Machine Operator: WASSONSY Modifier: WASSONSY <+> 1 Start Time [facility] IntraOp Cautery Entry 1 Entry 2 ESU Identification Cautery Type Monopolar ESU BiPolar ESU Cautery Type Comments ID Number [id number] ID Type Hospital Number Hospital Number Cautery [...] D, RN 12/14/18 15:40:53 12/14/18 15:40:53 [facility] IntraOp Communication Entry 1 Communication To Family/Significant other Comment START Communication By ISAÍAS RINCON RN Date and Time 12/14/18 15:39:00 Last Modified By: ISAÍAS RINCON RN 12/14/18 15:39:44 [facility] IntraOp Counts Verification Entry 1 Procedure Lumbar Laminectomy(Left) Count Info Count Type Sponge, Sharps, Miscellaneous Counts Verification Baseline/pre-procedure Sequence Count Results Not Applicable Counts Performed By Count Performed By IGGY EVANS (Scrub) Count Performed By ISAÍAS RINCON RN (RN) Last Modified By: ISAÍAS RINCON RN 12/14/18 15:40:01 [facility] IntraOp Counts Final Entry 1 Procedure Lumbar Laminectomy(Left) Final Count Info Count Type Sponge, Sharps, Miscellaneous Counts Verification Skin Closure/end of Sequence procedure Count Results Correct, surgeon notified Counts Performed By Count Performed By IGGY EVANS (Scrub) Count Performed By ISAÍAS RINCON RN (RN) Last Modified By: ISAÍAS RINCON RN 12/14/18 16:05:33 [facility] IntraOp Departure from OR Entry 1 Integumentary Assessment Integumentary WDL Assessment WDL Transfer/Handoff Transfer to PACU Phase I Handoff Method Phone call Handoff Reported to VIDYA VALENTINO RN Post-op Transport Stretcher/Gurney Via Patient Transport BOBBY DURAN PA-C, Accompanied by SAULO ABDI CRNA Last Modified By: ISAÍAS RINCON RN 12/14/18 16:06:24 [facility] IntraOp Dressing and Packing Entry 1 Type Dressing Location OP SITE Wound Dressing Item Steristrip, Other Applied By BOBBY DURAN PA-C Other Comments MASTISOL, STERISTRIPS, COVADERM Last Modified By: ISAÍAS RINCON RN 12/14/18 15:50:21 [facility] IntraOp Fire Risk Assessment Entry 1 Fire [...] By: ISAÍAS RINCON RN 12/14/18 15:42:21 [facility] IntraOp General Case Business Librarian 1 Case Information OR OR 16 [facility] Case Level 1 Room Verified Yes Wound Class I - Clean Specialty SN Neurosurgery Anesthesia Type General ASA Class 3 Diagnosis Preop Diagnosis LUMBAR RADICULOPATHY Postop Same As Preop No Postop Diagnosis SEE MD POST OP NOTE Last Modified By: ISAÍAS RINCON RN 12/14/18 15:41:01 [facility] IntraOp General Case Data Audit 12/14/18 15:41:01 Pad Machine Operator: RANJAN Modifier: RANJAN <+> 1 ASA Class <+> 1 Room Verified [facility] IntraOp Intraoperative Assessment Entry 1 Handoff Method [...] By: ISAÍAS RINCON RN 12/14/18 15:42:38 [facility] IntraOp Intraoperative Equipment Entry 1 Type Equipment Equipment Equipment Krzysztof Suction System ID Number [id number] Setting 180 MM HG Intraop Monitoring Electrocardiogram Three lead placement (ECG) Electrode Placement Blood Pressure Non-Invasive BP Device Source Antiembolic Devices Antiembolic Devices Sequential compression device, knee high Antiembolic Device Bilateral Location Antiembolic Device [id number] ID Number Scopes Photo/Video Documentation Photo No Video No Last Modified By: ISAÍAS RINCON RN 12/14/18 15:43:35 [facility] IntraOp Medication Admin Entry 1 Entry 2 Entry 3 Medication/Irrigant lidocaine 1% w/ Bacitracin 50,00units SPNG SURGFOAM epinephrine 1:100,000 powder vial [id number] 30ml vial - [id number] Combo Med List Time Administered Route of LOCAL ADDED TO NS IRRIGATION TOPICAL Administration Dose Dose 10 37862 1 Unit of Measure ml units pkt Volume Administered By ASHOK CHENG TUTT, MATTHEW PAIGE, TUTT, MATTHEW PAIGE, MD-SNU MD-PONCE SALAZAR-SNAlee Procedure Irrigation Irrigant Volume In Irrigant Volume Out Last Modified By: ISAÍAS RINCON, ISAÍAS SAGE, RN ISAÍAS RINCON RN 12/14/18 15:48:18 12/14/18 15:48:18 12/14/18 15:48:18 Entry 4 Entry 5 Medication/Irrigant thrombin 5000units Kenalog 40mg/ml - topical powder - [id number] Combo Med List Time Administered Route of [...] 15 MG, MARCAINE 0.25% 30 ML [facility] IntraOp Medication Admin Audit 12/14/18 16:00:27 Pad Machine Operator: RANJAN Modifier: WASSONSY <+> 5 Medication/Irrigant <+> 5 Route of Administration <+> 5 Administered By <+> 5 Dose <+> 5 Unit of Measure [facility] IntraOp Patient Positioning Entry 1 Procedure Lumbar [...] RINCON, RN, BOBBY DURAN PA-C, ALEX BLACK, SURGICAL INSTRUMENTS INSPECTOR Position Verified Positioning Yes Verified by Anesthesia Positioning Yes Verified by Surgeon Last Modified By: ISAÍAS RINCON RN 12/14/18 15:45:21 [facility] IntraOp Sign In Entry 1 Patient, Site, [...] By: ISAÍAS RINCON RN 12/14/18 15:43:51 [facility] IntraOp Sign Out Entry 1 RN Confirmation [...] By: ISAÍAS RINCON RN 12/14/18 16:23:18 [facility] IntraOp Sign Out Audit 12/14/18 16:23:18 Pad Machine Operator: WASSONSY Modifier: WASSONSY <+> 1 RN Sign Out Signature Date/Time [facility] IntraOp Skin Prep Entry 1 Procedure Lumbar Laminectomy(Left) Prescribed Yes Pre-Surgical Prep Completed Prep Area BACK Intraop Prep Integumentary WDL Assessment WDL Prep Agents Alcohol, Chlorhexadine gluconate, DuraPrep Prep by ASHOK CHENG MD-SNU Hair Removal Methods No hair removal performed Last Modified By: ISAÍAS RINCON RN 12/14/18 15:44:15 [facility] IntraOp Surgical Procedures Entry 1 Procedure Lumbar Laminectomy Modifiers Left Additional (LT L4-5 DECOMPRESSION, Procedure MIS LAMINECTOMY Description Primary Procedure Yes Primary Surgeon ASHOK CHENG MD-SNU Start 12/14/18 15:38:00 Stop 12/14/18 16:13:00 Anesthesia Type General Specialty SN Neurosurgery Wound Class I - Clean Last Modified By: ISAÍAS RINCON, RN 12/14/18 16:13:43 General Comments: CLINDAMYCIN 900 MG IV PER ANESTHESIA [facility] IntraOp Surgical Procedures Audit 12/14/18 16:13:43 Pad Machine Operator: WASSONSY Modifier: WASSONSY <+> 1 Stop 12/14/18 15:48:46 Pad Machine Operator: WASSONSY Modifier: WASSONSY 1 <*> Primary Surgeon [...] Anesthesia Type 1 <*> Anesthesia Type [facility] IntraOp Temp Regulation Devices Entry 1 Temp Regulation Temperature Warm blankets, Room Regulation Device temperature, Forced Air Warming device Temperature 30577 Regulation Device Serial/Unit Number Temperature Upper body Regulation Site Temperature Device 43 C Setting Temperature ALEX BLACK Dmitiry, SURGICAL INSTRUMENTS INSPECTOR Regulation Device Applied by Last Modified By: ISAÍAS RINCON RN 12/14/18 15:49:45 [facility] IntraOP Time Out Entry 1 Procedure to [...] By: ISAÍAS RINCON RN 12/14/18 15:38:26 [facility] IntraOp X-Ray and Images Entry 1 X-Ray/Imaging Type Fluoroscopy Fluoroscopy Type C-Arm Site OP SITE Branding Machine Tender Name Kendy Raymond, Diagnostic Capping Machine Operator Last Modified By: ISAÍAS RINCON RN 12/14/18 15:49:16 Case Comments <None> Finalized By: TOSHIA ROSARIO Document Signatures Signed By: ISAÍAS RINCON RN 12/14/18 16:23 TOSHIA ROSARIO 12/16/18 13:56 Unfinalized History Date/Time Username Reason for Unfinalizing Freetext Reason for Unfinalizing 12/16/18 13:55 [email or web address] Correct Billing Electronically signed by Michelet [facility] Conversion Printed Circuit Layout Taper Cerner at 02/02/2023 12:32 PM CDT documented in this encounter Plan of Treatment Not on file documented as of this encounter Visit Diagnoses Not on filedocumented in this encounter
--- OUTSIDE RECORDS SUMMARY | 2025-08-04 10:58 | XMS_ITS | Encounter Summary ---
Author Organization [employer] ([place], [place], [place], [place]) Address [address] [place] [address] Care Team Providers Care Press Bucker Name Role Phone Unavailable Primary Care Provider Unavailabl e Encounter Details Date Type Department Care Team (Late st Contact Info) Description 12/14/2018 Transcribed Document [facility] [place] [facility] [place] [address] ProviderHelen MD [address] [place] [id number] Social History Tobacco Use Types Packs/Day Years Used Date Smoking Tobacco: Never Assessed Comments Unknown Sex and Gender Information Value Date Recorded Sex Assigned at Not on file Legal Sex Female 2:04 PM CDT Gender Identity Not on file Sexual Orientation Not on file documented as of this encounter Miscellaneous Notes * Cerner Conversion Note - Helen ProviderMD - 12/14/2018 5:54 PM [employer] [address] [address] Patient Copy Patient Information: Name: BERNICE NAVARRETE Current Date: 12/14/2018 17:54:53 : 1945 Patient Address: [address] [place] [address] Patient Attending Physician: ASHOK CHENG MD-SNU Primary Care Provider: MUSTAPHA EASTMAN [facility] Primary Care Provider Discharge Diagnosis: Weight [...] and water are not available, use hand court stenographer. ? Change your dressing as told by [...] or a bad smell. Medicines ??? Take hroz-dbt-thyjort and prescription medicines only as told by [...] urine clear or pale yellow. ? Take mbut-thy-efllzho or prescription medicines. ? Eat foods that [...] 04/21/2006 Document Revised: 05/18/2017 Document Reviewed: 03/19/2017 [employer] Interactive Patient Education ? 2017 [employer]. General Anesthesia, Adult, Care After These instructions [...] activities are safe for you. ??? Take ecbj-whd-zxrvkmt and prescription medicines only as told by [...] 01/08/2002 Document Revised: 03/06/2017 Document Reviewed: 09/15/2016 [employer] Interactive Patient Education ? 2017 [employer]. Medication Leaflets: acetaminophen and hydrocodone (a SEET a MIN oh fen and long droe KOE done) Hycet, Lorcet, Cedaredge, Verdrocet, Vicodin, Xodol, Zamicet What is the [...] may report side effects to FDA at 6-710-CQO-6642. What other drugs will affect acetaminophen and [...] affect acetaminophen and hydrocodone, including prescription and eynn-qud-kltchon medicines, vitamins, and herbal products. Not all [...] to ensure that the information provided by [employer]. ('[employer]') is accurate, up-to-date, and complete, but no guarantee is made to that effect. Drug information contained herein may be time sensitive. [employer] information has been compiled for use by healthcare practitioners and consumers in the [place] and therefore [employer] does not warrant that uses outside of the [place] are appropriate, unless specifically indicated otherwise. [employer] drug information does not endorse drugs, diagnose patients or recommend therapy. [employer] drug information is an informational resource designed [...] effective or appropriate for any given patient. [employer] does not assume any responsibility for any aspect of healthcare administered with the aid of information [employer] provides. The information contained herein is not intended to cover all possible uses, directions, precautions, warnings, drug interactions, allergic reactions, or adverse effects. If you have questions about the drugs you are taking, check with your doctor, nurse or pharmacist. Copyright 8694-9648 [employer]. Version: 15.02. Revision Date: 08/20/2018. cyclobenzaprine (benedicto [...] may report side effects to FDA at 4-903-ZWU-4709. What other drugs will affect cyclobenzaprine? Using [...] drugs may affect cyclobenzaprine, including prescription and ezsc-owz-yyzwibj medicines, vitamins, and herbal products. Not all [...] to ensure that the information provided by [employer]. ('[employer]') is accurate, up-to-date, and complete, but no guarantee is made to that effect. Drug information contained herein may be time sensitive. [employer] information has been compiled for use by healthcare practitioners and consumers in the [place] and therefore [employer] does not warrant that uses outside of the [place] are appropriate, unless specifically indicated otherwise. [employer] drug information does not endorse drugs, diagnose patients or recommend therapy. [employer] drug information is an informational resource designed [...] effective or appropriate for any given patient. [employer] does not assume any responsibility for any aspect of healthcare administered with the aid of information [employer] provides. The information contained herein is not intended to cover all possible uses, directions, precautions, warnings, drug interactions, allergic reactions, or adverse effects. If you have questions about the drugs you are taking, check with your doctor, nurse or pharmacist. Copyright 3739-8943 [employer]. Version: 5.01. Revision Date: 07/11/2018. CIGARETTE SMOKING: The facts are clear, cigarette smoking will shorten your life. Smoking can cause many illnesses along the way. As a healthcare provider, we recommend that you stop smoking. Assistance with quitting is available by contacting 0-742-GRBU-NOW. This is a free resource providing counseling, [...] Be sure to sign up for the [employer] patient portal, which gives you 08/05 access to your medical information ??? including these discharge instructions ??? using your computer, smartphone, or tablet. Just go to [employer] to get started. Questions? Call . [facility] would like to thank you for allowing us to assist you with your healthcare needs. ROSALBA Parker CATHERINE M, (or hostess party sales representative) have received the above patient education materials/instructions and have verbalized understanding: Patient Signature _ Date/Time Patient Central Service Supply Distributor Signature (if needed) Date/Time Clinician/Hospital Central Service Supply Distributor Signature (if needed) Date/Time documented in this encounter Plan of Treatment Not on file documented as of this encounter Visit Diagnoses Not on filedocumented in this encounter
--- OUTSIDE RECORDS SUMMARY | 2025-08-04 10:58 | XMS_ITS | Clinical Summary ---
Author Organization [facility] Address [facility] [place] [address] Phone Care Team Providers Care Rn Psych Name Role Phone Riley Ogden MD Unavailable [phone] Ramonita Anguiano MD Unavailable [phone] Nabil Gilbert MD Primary Care Provider [phone] Allergies Active Allergy Reactions Criticality Noted Date [...] 75+ series) 2018 COVID-19 Vaccine ( - 2024-2 6 season) 2025 Influenza Vaccine (#1) 2025 Hepatitis B Vaccine Aged Out No longe r eligible based on patient's age to complete this topic Meningococcal B Vaccine Aged Out No l onger eligible based on patient's age to complete this topic Insurance Advance Directives For more information, please contact: [phone] Documents on File Type Date Recorded Patient Telephone Interceptor Operator Expl anation Power of Forepart Reducer 03/27/2018 8:22 AM Advance Directives/DNR 01/09/2018 6:18 PM Care Teams Rn Psych Relationship Specialty Start Date End Date Nabil Gilbert MD [facility] [place] [address] PCP - General Family Medicine 12/29/17 Riley Ogden MD [address] [place] [address] [place] [address] Consulting Physician Obstetrics & Gynecology-Gynecologic Oncology 12/22/17 Ramonita Anguiano MD [address] [place] [address] [place] [address] Referring Physician Obstetrics & Gynecology 12/21/17
--- OUTSIDE RECORDS SUMMARY | 2025-08-04 10:58 | XMS_ITS | Encounter Summary ---
Author Organization [employer] ([place], [place], [place], [place]) Address [address] [place] [address] Care Team Providers Care Conversion Man Name Role Phone Unavailable Primary Care Provider Unavailabl e Encounter Details Date Type Department Care Team (Late st Contact Info) Description 12/14/2018 Transcribed Document [facility] [place] [address] [place] [address] ProviderHelen MD [address] [place] [address] Social History Tobacco Use Types Packs/Day Years Used Date Smoking Tobacco: Never Assessed Comments Unknown Sex and Gender Information Value Date Recorded Sex Assigned at Not on file Legal Sex Female 2:04 PM CDT Gender Identity Not on file Sexual Orientation Not on file documented as of this encounter Miscellaneous Notes * Cerner Conversion Note - Historical ProviderMD - 12/14/2018 6:18 PM SALES PROMOTION OFFICER Discharge Instructions Entered On: 12/14/2018 18:19 EST [...] At Discharge Comment : Follow instructionsout from [facility]. Jalyn Fermin RN - 12/14/2018 18:18 EST documented in this encounter Plan of Treatment Not on file documented as of this encounter Visit Diagnoses Not on filedocumented in this encounter
--- OUTSIDE RECORDS SUMMARY | 2025-08-04 10:59 | XMS_ITS | Clinical Summary ---
Author Organization [facility] Address [address] [place] [address] Care Team Providers Care Retail Selling Specialist Name Role Phone Nabil Gilbert MD Primary Care Provider [phone] Allergies Active Allergy Reactions Criticality Noted Date [...] ICA stenosis Overview (02/08/2019): a. 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 b. Carotid angiogram, 12/26/2014: Advanced atherosclerotic plaque at the left carotid bifurcation equaling about 72%, vbng-lh-orpfdtoe changes of fibromuscular dysplasia involving the mid- [...] 018, 12/20/1996 Medical Devices Implanted Type Area Concrete Stone Fabricator Device Identifier Shelf Expiration Date Model / Serial / Lot Stent Wall Carotid Mr 5.9f [id number] 135cm - [id number] Implanted:Qty: 1 on 02/08/2019 by Dada Stevens MD at [facility] Stent [employer] Digital [id number] / / Procedures Procedure Name Priority Date/Time Associated Diagnosis Comments LIPID PANEL Routine 01/15/2019 12:11 PM EDT Routine general medical examination at a health care facility [ICD-10-CM] from Last 3 Months or Most Recently Relevant to Health Maintenance Results * (ABNORMAL) Lipid Panel (01/15/2019 12:11 PM EDT) Total Cholesterol 156 0 - 200 mg/dL 01/15/2019 12:57 PM EDT [facility] Triglycerides 330(H) 0 - 150 mg/dL 01/15/2019 12:57 PM EDT [facility] HDL Cholesterol 38(L) 40 - 60 mg/dL 01/15/2019 12:57 PM EDT [facility] LDL Cholesterol 63 0 - 130 mg/dL 01/15/2019 12:57 PM EDT [facility] Blood Venipuncture / Unknown 01/15/2019 12:11 PM EDT 01/15/2019 12:11 PM EDT [facility] - 01/15/2019 12:57 PM [...] MD LAB BLOOD ORDERABLES Final Re sult [facility]
[address] [id number], from Last 3 Months or Most Recently Relevant to Health Maintenance Insurance Advance Directives Documents on File Type Date Recorded Patient Mixer Helper Expl anation POWER OF SCIENCE CONSULTANT - SCAN 12/19/2017 1:39 PM DURABLE POA [...] Of Support Discussed With: Patient Care Teams Retail Selling Specialist Relationship Specialty Start Date End Date Nabil Gilbert MD [address] [facility] [address] [place] [address] PCP - General 12/22/15
--- OUTSIDE RECORDS SUMMARY | 2025-08-04 10:59 | XMS_ITS | Encounter Summary ---
Author Organization [employer] ([place], [place], [place], [place]) Address [address] [place] [address] Care Team Providers Care Cook Dessert Name Role Phone Unavailable Primary Care Provider Unavailabl e Encounter Details Date Type Department Care Team (Late st Contact Info) Description 12/14/2018 Transcribed Document [facility] [place] [facility] [place] [address] ProviderHelen MD [address] [place] [address] Social History Tobacco Use Types Packs/Day Years Used Date Smoking Tobacco: Never Assessed Comments Unknown Sex and Gender Information Value Date Recorded Sex Assigned at Not on file Legal Sex Female 2:04 PM CDT Gender Identity Not on file Sexual Orientation Not on file documented as of this encounter Miscellaneous Notes * Cerner Conversion Note - Helen ProviderMD - 12/14/2018 6:20 PM TOOTH POLISHER [address] [address] Patient Copy Patient Information: Name: BERNICE NAVARRETE Current Date: 12/14/2018 18:20:06 : 1945 Patient Address: [address] [place] [address] Patient Attending Physician: ASHOK CHENG MD-[facility] Primary Care Provider: MUSTAPHA EASTMAN [facility] Primary Care Provider Discharge Diagnosis: Weight on Admission: 167 lb, 8 oz Comment: Follow-up Instructions: With: Address: When: ASHOK CHENG [address] [facility], [address] [place] [address] Business (1) 3:15 PM Comments: Appointment has [...] Care after Discharge Comment: Follow instructionsout from [facility]. Immunizations Documented During Stay: No Immunizations [...] and water are not available, use hand paid search marketing analyst. ? Change your dressing as told by [...] or a bad smell. Medicines ??? Take mazd-dcj-djmkvgt and prescription medicines only as told by [...] urine clear or pale yellow. ? Take aafn-jxh-kbtfpcj or prescription medicines. ? Eat foods that [...] 04/21/2006 Document Revised: 05/18/2017 Document Reviewed: 03/19/2017 Med.ly Interactive Patient Education ? 2017 Med.ly Inc. General Anesthesia, Adult, Care After These [...] activities are safe for you. ??? Take gtva-tla-deoeupy and prescription medicines only as told by [...] 01/08/2002 Document Revised: 03/06/2017 Document Reviewed: 09/15/2016 ElseNotion Systems Interactive Patient Education ? 2017 Med.ly Inc. Medication Leaflets: acetaminophen and hydrocodone (a SEET a MIN oh fen and long droe KOE done) Hycet, Lorcet, [place], Verdrocet, Vicodin, Xodol, Zamicet What is the [...] may report side effects to FDA at 1-821-PRB-6855. What other drugs will affect acetaminophen and [...] affect acetaminophen and hydrocodone, including prescription and aidr-itn-wnotkwk medicines, vitamins, and herbal products. Not all [...] to ensure that the information provided by [employer]. ('[employer]') is accurate, up-to-date, and complete, but no guarantee is made to that effect. Drug information contained herein may be time sensitive. [employer] information has been compiled for use by healthcare practitioners and consumers in the [place] and therefore [employer] does not warrant that uses outside of the [place] are appropriate, unless specifically indicated otherwise. [employer]'s drug information does not endorse drugs, diagnose patients or recommend therapy. [employer] drug information is an informational resource designed [...] effective or appropriate for any given patient. [employer] does not assume any responsibility for any aspect of healthcare administered with the aid of information [employer] provides. The information contained herein is not intended to cover all possible uses, directions, precautions, warnings, drug interactions, allergic reactions, or adverse effects. If you have questions about the drugs you are taking, check with your doctor, nurse or pharmacist. Copyright 8797-5082 [employer]. Version: 15.02. Revision Date: 08/20/2018. cyclobenzaprine (benedicto [...] may report side effects to FDA at 8-429-EJY-5443. What other drugs will affect cyclobenzaprine? Using [...] drugs may affect cyclobenzaprine, including prescription and kkdm-vde-afjdhft medicines, vitamins, and herbal products. Not all [...] to ensure that the information provided by [employer]. ('[employer]') is accurate, up-to-date, and complete, but no guarantee is made to that effect. Drug information contained herein may be time sensitive. [employer] information has been compiled for use by healthcare practitioners and consumers in the [place] and therefore [employer] does not warrant that uses outside of the [place] are appropriate, unless specifically indicated otherwise. [employer] drug information does not endorse drugs, diagnose patients or recommend therapy. [employer] drug information is an informational resource designed [...] effective or appropriate for any given patient. [facility] does not assume any responsibility for any aspect of healthcare administered with the aid of information [facility] provides. The information contained herein is not intended to cover all possible uses, directions, precautions, warnings, drug interactions, allergic reactions, or adverse effects. If you have questions about the drugs you are taking, check with your doctor, nurse or pharmacist. Copyright 3398-4253 [employer]. Version: 5.01. Revision Date: 07/11/2018. CIGARETTE SMOKING: The facts are clear, cigarette smoking will shorten your life. Smoking can cause many illnesses along the way. As a healthcare provider, we recommend that you stop smoking. Assistance with quitting is available by contacting 8-369-JMRZJust around UsNOW. This is a free resource providing counseling, [...] Be sure to sign up for the [employer] patient portal, which gives you 08/05 access to your medical information ??? including these discharge instructions ??? using your computer, smartphone, or tablet. Just go to [employer] to get started. Questions? Call . [facility] would like to thank you for allowing us to assist you with your healthcare needs. ROSALBA Parker CATHERINE M, (or public utilities sales representative) have received the above patient education materials/instructions and have verbalized understanding: Patient Signature _ Date/Time Patient Grader Tender Signature (if needed) Date/Time Clinician/Hospital Grader Tender Signature (if needed) Date/Time Electronically signed by Michelet [facility] Conversion Aircraft Power Plant Assembler Cerner at 02/02/2023 12:15 PM CDT documented in this encounter Plan of Treatment Not on file documented as of this encounter Visit Diagnoses Not on filedocumented in this encounter
--- OUTSIDE RECORDS SUMMARY | 2025-08-04 10:59 | XMS_ITS | Encounter Summary ---
Author Organization [employer] ([place], [place], [place], [place]) Address [address] [place] [address] Care Team Providers Care Digital Technician Name Role Phone Unavailable Primary Care Provider Unavailabl e Encounter Details Date Type Department Care Team (Late st Contact Info) Description 12/14/2018 Transcribed Document [facility] [place] Family Medicine [address] [place] [address] ProviderHelen MD [address] [place], [place] [id number] Social History Tobacco Use Types Packs/Day Years Used Date Smoking Tobacco: Never Assessed Comments Unknown Sex and Gender Information Value Date Recorded Sex Assigned at Not on file Legal Sex Female 2:04 PM CDT Gender Identity Not on file Sexual Orientation Not on file documented as of this encounter Miscellaneous Notes * Cerner Conversion Note - Historical ProviderMD - 12/14/2018 3:38 PM ELECTRICAL ENGINEERING TEACHER [facility] Main OR PostOp Summary Primary Physician: ASHOK CHENG [facility] Finalized Date/Time: 12/14/18 18:24:11 Pt. Name: BERNICE NAVARRETE/Sex: 1945 Female Med Rec #: [id number] Physician: ASHOK CHENG [facility] Financial #: [id number] Pt. Type: O Room/Bed: Admit/Disch: 12/14/18 11:04:00 - Institution: [facility] Main OR PostOp Case Times Entry 1 In PACU II 12/14/18 18:00:00 Ready for PACU II 12/14/18 18:20:00 Discharge Discharge from PACU 12/14/18 18:25:00 II Last Modified By: Jalyn Fermin RN 12/14/18 18:23:56 [facility] Main OR PostOp Case Times Audit 12/14/18 18:23:56 Systems Architecture Analyst: RAMEZALR Modifier: RAMEZALR 1 <*> Discharge from PACU II 12/14/18 18:20:00 12/14/18 18:17:07 Systems Architecture Analyst: RAMEZALR Modifier: RAMEZALR <+> 1 Ready for [...]
--- OUTSIDE RECORDS SUMMARY | 2025-08-04 10:59 | XMS_ITS | Encounter Summary ---
Author Organization [employer] ([place], [place], [place], [place]) Address [address] [place] [address] Care Team Providers Care Centralized Traffic Control Operator Name Role Phone Unavailable Primary Care Provider Unavailabl e Encounter Details Date Type Department Care Team (Late st Contact Info) Description 12/13/2018 Transcribed Document [facility] [place] Family Medicine [address] [place] [address] ProviderHelen MD [address] [place], [place] [id number] Social History Tobacco Use Types Packs/Day Years Used Date Smoking Tobacco: Never Assessed Comments Unknown Sex and Gender Information Value Date Recorded Sex Assigned at Not on file Legal Sex Female 2:04 PM CDT Gender Identity Not on file Sexual Orientation Not on file documented as of this encounter Miscellaneous Notes * Cerner Conversion Note - Historical ProviderMD - 12/13/2018 1:56 PM SCREW DOWN PAT Adult Entered On: 12/13/2018 14:00 EST Performed On: 12/13/2018 13:56 EST by ANDREW HINES RN Pain Assessment Pain Assessment : Initial assessment Pain Location Comment : denies pain JEWELS PURVIS RN - 12/14/2018 12:06 EST Height and Weight, Clinical Dosing Height Source : Measured Height Entry Format : Louisa Height, Feet : 0 ft(Converted to: 0 cm, 0 Inch) Height, Inches : 63 Inch(Converted to: 5 ft 3 Inch, 160.02 cm) Clinical Height : 160.02 cm Weight Source : Standing scale Weight Entry Format : Louisa Clinical Dosing Weight : 76.14 kg Weight, Pounds : 167.5 lb Body Surface Area (BSA) : 1.8 m2 Body Mass Index : 29.7 kg/m2 (HI) [place] Body Weight : 52 kg JEWELS PURVIS [...] 13:56 EST General Info Primary Language : Taiwanese Communication Barrier : None JEWELS PURVIS RN [...]
--- OUTSIDE RECORDS SUMMARY | 2025-08-04 10:59 | XMS_ITS | Encounter Summary ---
Author Organization [employer] ([place], [place], [place], [place]) Address [address] [place] [address] Care Team Providers Care Certified Alcohol Counselor Name Role Phone Unavailable Primary Care Provider Unavailabl e Encounter Details Date Type Department Care Team (Late st Contact Info) Description 12/14/2018 Transcribed Document [facility] [place] [facility] [place] [address] Helen Agee MD [address] [place], [place] [id number] Social History Tobacco Use Types Packs/Day Years Used Date Smoking Tobacco: Never Assessed Comments Unknown Sex and Gender Information Value Date Recorded Sex Assigned at Not on file Legal Sex Female 2:04 PM CDT Gender Identity Not on file Sexual Orientation Not on file documented as of this encounter Miscellaneous Notes * Cerner Conversion Note - Helen Agee MD - 12/14/2018 6:20 PM DISPOSAL MAN Patient Education Materials Follows: Laminectomy, Care After [...] and water are not available, use hand commercial real estate manager. ? Change your dressing as told [...] or a bad smell. Medicines ??? Take zhyg-dav-koldfnb and prescription medicines only as told by [...] urine clear or pale yellow. ? Take obmg-xvl-deybncx or prescription medicines. ? Eat foods that [...] 04/21/2006 Document Revised: 05/18/2017 Document Reviewed: 03/19/2017 E[employer] Interactive Patient Education ? 2017 E[employer].co.zw Inc. Pharmacology General Anesthesia, Adult, Care After [...] activities are safe for you. ??? Take tuit-ggo-zbznrwr and prescription medicines only as told by [...]
--- OUTSIDE RECORDS SUMMARY | 2025-08-04 10:59 | XMS_ITS | Encounter Summary ---
Author Organization [employer] ([place], [place], [place], [place]) Address [address] [place] [address] Care Team Providers Care Drum Carrier Name Role Phone Unavailable Primary Care Provider Unavailabl e Encounter Details Date Type Department Care Team (Late st Contact Info) Description 12/14/2018 Transcribed Document [facility] Neurology - [address] [facility] [address] [place] [id number] Francisco Herndon MD [address] [facility] [address] [place] [address] Social History Tobacco Use Types [...] invasive L4-5 laminectomy. SURGEON: Francisco Herndon MD KILN MAINTENANCE: Endy Hogue. TYPE OF ANESTHESIA: GEA. DESCRIPTION [...] LOSS: 25 mL. DRAINS: None. COMPLICATIONS: None. Frnacisco Herndon M.D. Dict: 12/14/2018 16:06:36 Trans: 12/14/2018 20:37:15 CC1: Francisco Herndon M.D. CC2: Dr. Nabil Gilbert; [facility] [address], [address] [address]; [phone] documented in this encounter Plan of Treatment Not on file documented as of this encounter Visit Diagnoses Not on filedocumented in this encounter
--- NOTE | 2025-08-04 11:00 | CT_ITS ---
FINAL REPORT TECHNIQUE: Axial imaging of the head was obtained after the intravenous administration of contrast. This study was performed with techniques to keep radiation doses as low as reasonably achievable (ALARA). Individualized dose reduction techniques using automated exposure control or adjustment of mA and/or kV according to the patient's size were employed. CLINICAL HISTORY: fall, weakness, difficulty walking COMPARISON: 08/27/2024 FINDINGS: Images were obtained after intravenous contrast which makes exclusion of small intracranial hemorrhage difficult. No obvious hemorrhage is seen. There is mild age-appropriate atrophy. The ventricles are normal in size. No masses are identified. No extra-axial fluid collection is seen. The sinuses are normal. No osseous abnormality is seen on the bone window images. Postcontrast images demonstrate no abnormal enhancement. IMPRESSION: No obvious hemorrhage. Although, small intracranial hemorrhage difficult to exclude following intravenous contrast. Reviewed, Interpreted and Dictated by Roly Baez MD Transcribed by Graciela Serrato Authenticated and [facility]
--- NOTE | 2025-08-04 11:00 | CT_ITS ---
FINAL REPORT TECHNIQUE: Axial images through the thoracic spine were performed. Sagittal reconstruction images were performed. This study was performed with techniques to keep radiation doses as low as reasonably achievable, (ALARA). Individualized dose reduction techniques using automated exposure control or adjustment of mA and/or kV according to the patient's size were employed. CLINICAL HISTORY: thoracic compression fracture, fall FINDINGS: There is a severe wedge compression fracture of T10 which is stable from x-ray performed 07/30/[address] performed in 2022. There is a T12 compression fracture which is chronic from 2022. There is no malalignment. IMPRESSION: Severe wedge compression fracture of T10, age-indeterminate. Stable, mild compression fracture of T12. Reviewed, Interpreted and Dictated by Roly Baez MD Transcribed by Graciela Serrato Authenticated and [facility]
--- NOTE | 2025-08-04 11:00 | CT_ITS ---
FINAL REPORT TECHNIQUE: Postcontrast axial images of the chest were performed in a CTA protocol. This study was performed with techniques to keep radiation doses as low as reasonably achievable, (ALARA). Individualized dose reduction technique using automated exposure control or adjustment of mA and/or kV according to the patient's size were employed. CLINICAL HISTORY: elevated D-dimer COMPARISON: 01/26/2023 FINDINGS: The heart is normal in size. No adenopathy is identified. No pleural or pericardial effusion is identified. The thoracic aorta is normal in caliber with no focal aneurysm or dissection identified. There is no filling defect to suggest pulmonary embolism. There are emphysematous changes. No pneumothorax is seen. No lung infiltrate or mass is identified. The images of the upper abdomen are unremarkable. IMPRESSION: No evidence for PE on this exam. Reviewed, Interpreted and Dictated by Roly Baez MD Transcribed by Graciela Serrato Authenticated and . [facility]
--- OUTSIDE RECORDS SUMMARY | 2025-08-04 11:00 | XMS_ITS | Referral Summary ---
Author Organization [employer] [facility] ([place], [place], [place], [place]) Address [address] [place] [address] Care Team Providers Care Manager Internal Name Role Phone Unavailable Primary Care Provider [...]
--- OUTSIDE RECORDS SUMMARY | 2025-08-04 11:00 | XMS_ITS | Encounter Summary ---
Author Organization [employer] ([place], [place], [place], [place]) Address [address] [place] [address] Care Team Providers Care Egg Packer Name Role Phone Unavailable Primary Care Provider Unavailabl e Encounter Details Date Type Department Care Team (Late st Contact Info) Description 12/14/2018 Transcribed Document [facility] [place] Medicine [address] [place] [address] ProviderHelen MD [address] [place] [id number] Social History Tobacco Use Types Packs/Day Years Used Date Smoking Tobacco: Never Assessed Comments Unknown Sex and Gender Information Value Date Recorded Sex Assigned at Not on file Legal Sex Female 2:04 PM CDT Gender Identity Not on file Sexual Orientation Not on file documented as of this encounter Miscellaneous Notes * Cerner Conversion Note - Historical ProviderMD - 12/14/2018 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
[2025-08-04] MEDS: 0.9 % SODIUM CHLORIDE 50 ML VIAL IV (11:15)
[2025-08-04] MEDS: SODIUM CHLORIDE 0.9% 10ML SYR (RAD ONLY) 10 ML IV (11:16)
[2025-08-04] MEDS: IOPAMIDOL-370 (76%);100ML BOTTLE 85 ML IV (11:16)
[2025-08-04 12:10] LABS: Hemoglobin A1C 5.9 % (4.0-6.0)
[2025-08-04 12:57] LABS: Glucose,Fasting 119 mg/dl (74-100)
--- OUTSIDE RECORDS SUMMARY | 2025-09-29 20:00 | XMS_ITS | Clinical Summary ---
Author Organization Unknown Care Team Providers Care Book Or Script Editor Name Role Phone ROBERTO SHOT POLISHER AND INSPECTOR, RORY Unavailable Unavailable LINDSEY VELAZQUEZ, SUPA Unavailable Unavailable Payers Payer Name Policy Type Policy Number Effective Date Expira tion Date [facility] [id number] Problems Condition Name Condition Details Condition Category Status Onset Date Resolution Date Last Treatment Date Treating Clinician Comments URINARY TRACT INFECTION, SITE NOT SPECIFIED Active 2024-1017 00:00: 00 Allergies, Adverse Reactions, Alerts Allergy Name Allergy Type Status Severity Reaction(s) Onset Date Inactive Date Treating Clinician Comments CEPHALEXIN Propensity to adverse reactions Active 2024-10 0 08:40: 33 IBUPROFEN Propensity to adverse reactions Active 2024-10 018 08:40: 40 Medications Ordered Medication Name Filled Medication Name Start Date Stop Date Current Medication? Ordering Clinician Indication Dosage Frequency Signature (SIG) Comments Components pregabalin 75 mg capsule 2023-10 00:00: 00 07-31 23:59 :00 No [id number] FIBER MYALGIA 1 capsule BEDTIME 1 capsule BEDTIME (route: oral) Med Classific ation: Central Nervous System Agents losartan 100 mg-hydrochl orothiazide 12.5 mg tablet 2023-10 00:00: 00 07-31 23:59 :00 No [id number] HYPERTENSIO N 1 tablet DAILY 1 tablet DAILY (route: oral) Med Classific ation: Cardiovas cular Therapy Agents Fiber (calcium polycarboph il) 625 mg tablet 2023-10 00:00: 00 07-31 23:59 :00 No [id number] DIGESTIVE SUPPLIMENT 1 tablet DAILY 1 tablet DAILY (route: oral) Med Classific ation: Gastroint estinal Therapy Agents Probiotic (B. coagulans) 2.5 billion cell chewable tablet 2023-10 2 00:00: 00 07-31 23:59 :00 No [id number] DIGESTIVE SUPPLEMENT 1 tablet DAILY 1 tablet DAILY (route: oral) Med Classific ation: Gastroint estinal Therapy Agents acetaminoph en 500 mg tablet 2023-10 2 00:00: 00 07-31 23:59 :00 No [id number] PAIN 2 tablet 3 TIMES DAILY 2 tablet 3 TIMES DAILY (route: oral) Med Classific ation: Analgesic , Anti-infl ammatory or Antipyret ic Adult Low Dose Aspirin 81 mg tablet,jayden yed release 2023-10 2 00:00: 00 07-31 23:59 :00 No [id number] BLOOD THINNER 1 tablet BEDTIME 1 tablet BEDTIME (route: oral) Med Classific ation: Hematolog ical Agents albuterol sulfate HFA 90 mcg/actuati on aerosol inhaler 2023-10 00:00: 00 07-31 23:59 :00 No [id number] COPD 2 puff 4 TIMES DAILY 2 puff 4 TIMES DAILY (route: inhalation ) Med Classific ation: Respirato ry Therapy Agents biotin 5 mg tablet 2023-10 00:00: 00 07-31 23:59 :00 No [id number] SUPPLIMENT 1 tablet DAILY 1 tablet DAILY (route: oral) Med Classific ation: Electroly te Balance-N utritiona l Products Vitamin C 500 mg tablet 2023-10 2 00:00: 00 07-31 23:59 :00 No [id number] SUPPLIMENT 1 tablet 2 TIMES DAILY 1 tablet 2 TIMES DAILY (route: oral) Med Classific ation: Electroly te Balance-N utritiona l Products Co Q-10 10 mg capsule 2023-10 2 00:00: 00 07-31 23:59 :00 No [id number] CARDIAC 1 capsule DAILY 1 capsule DAILY (route: oral) Med Classific ation: Alternati ve Therapy D3-5000 125 mcg (5,000 unit) capsule 2023-10 2- 00:00: 00 07-31 23:59 :00 No [id number] SUPPLIMENT 1 capsule DAILY 1 capsule DAILY (route: oral) Med Classific ation: Electroly te Balance-N utritiona l Products ferrous sulfate 325 mg (65 mg iron) tablet 2023-10 00:00: 00 07-31 23:59 :00 No [id number] SUPPLIMENT 1 tablet 2 TIMES DAILY 1 tablet 2 TIMES DAILY (route: oral) Med Classific ation: Electroly te Balance-N utritiona l Products magnesium 400 mg (as magnesium oxide) tablet 2023-10 00:00: 00 07-31 23:59 :00 No [id number] SUPPLIMENT 1 tablet DAILY 1 tablet DAILY (route: oral) Med Classific ation: Electroly te Balance-N utritiona l Products melatonin 10 mg tablet 2023-10 00:00: 00 07-31 23:59 :00 No [id number] INSOMNIA 1 tablet BEDTIME 1 tablet BEDTIME (route: oral) Med Classific ation: Central Nervous System Agents metoprolol succinate ER 25 mg tablet,exte nded release 24 hr 2023-10 00:00: 00 07-31 23:59 :00 No [id number] HYPERTENSIO N 1 tablet 2 TIMES DAILY 1 tablet 2 TIMES DAILY (route: oral) Med Classific ation: Cardiovas cular Therapy Agents omeprazole 40 mg capsule,del ayed release 2023-10 00:00: 00 07-31 23:59 :00 No [id number] GERD 1 capsule DAILY 1 capsule DAILY (route: oral) Med Classific ation: Gastroint estinal Therapy Agents prednisone 5 mg tablet 2023-10 00:00: 00 07-31 23:59 :00 No [id number] COPD 1 tablet DAILY 1 tablet DAILY (route: oral) Med Classific ation: Endocrine rosuvastati n 10 mg tablet 2023-10 00:00: 00 07-31 23:59 :00 No [id number] HYPERLIPIDE GERMAN 1 tablet BEDTIME 1 tablet BEDTIME (route: oral) Med Classific ation: Cardiovas cular Therapy Agents Vitamin B-12 250 mcg tablet 2023-10 00:00: 00 07-31 23:59 :00 No [id number] SUPPLEMENT 1 tablet DAILY 1 tablet DAILY (route: oral) Med Classific ation: Electroly te Balance-N utritiona l Products Stiolto Respimat 2.5 mcg-2.5 mcg/actuati on solution for inhalation 2023-10 2 00:00: 00 07-31 23:59 :00 No [id number] COPD 2 puff EVERY AM 2 puff EVERY AM (route: inhalation ) Med Classific ation: Respirato ry Therapy Agents sulfacetami de sodium 10 % eye drops 2023-10 2 00:00: 00 07-31 23:59 :00 No [id number] IRRITATION 1 drops DAILY 1 drops DAILY (route: ophthalmic (eye)) Med Classific ation: Ophthalmi c Agents trazodone 50 mg tablet 2023-10 00:00: 00 07-31 23:59 :00 No [id number] INSOMNIA 2 tablet BEDTIME 2 tablet BEDTIME (route: oral) Med Classific ation: Central Nervous System Agents hydrocodone 5 mg-acetamin ophen 325 mg tablet 2023-10 00:00: 00 07-31 23:59 :00 No [id number] SEVERE PAIN 1 tablet 2 TIMES DAILY 1 tablet 2 TIMES DAILY (route: oral) Med Classific ation: Analgesic , Anti-infl ammatory or Antipyret ic Vital Signs Vital Name Observation Time Observation Value Commen ts Temperature 2025-08-02 09:44:00.000 98.1 [degF] BMI (%) 2025-08-02 09:19:29.000 30 kg/m2 Height 2025-08-02 09:19:18.000 63 [in_us] Pulse 2025-08-02 09:44:00.000 60 /min O2 Saturation (%) 2025-08-02 09:44:00.000 96 % Respirations 2025-08-02 09:44:00.000 16 /min Weight (lbs) 2025-08-02 09:19:29.000 172 [lb_av] Systolic Blood Pressure 2025-08-02 09:44:00.000 130 mm [Hg] Diastolic Blood Pressure 2025-08-02 09:44:00.000 68 mm [Hg] Plan of Treatment Planned Activity Planned Date Details Comments Future Scheduled Test RN TO OBSE RVE, ASSESS, EVALUATE, AND DEVELOP AN INDIVIDUALIZED PLAN OF CARE. AGENCY MAY ACCEPT ORDERS FROM CONSULTING PHYSICIANS RORY MEJIA NP RN TO OBSERVE AND ASSESS, GEAR FINISHER/POST OFFICE MARKUP CLERK TO OBSERVE FOR RISK FOR FALLS AND INSTRUCT IN FALL PREVENTION, HOME SAFETY, MEDICATION MANAGEMENT, INFECTION PREVENTION, AND NUTRITION MANAGEMENT. RN/GEAR FINISHER/POST OFFICE MARKUP CLERK NURSE MAY PERFORM O2 SATURATION LEVEL ON ADMISSION AND PRN FOR RN TO ASSESS/GEAR FINISHER TO OBSERVE PATIENT, WITH NOTIFICATION TO THE PHYSICIAN IF SATURATION IS 90% IN THE ABSENCE OF MORE SPECIFIC PARAMETERS FROM THE PHYSICIAN. AGENCY MAY PERFORM A RESUMPTION OF CARE VISIT FOLLOWING ANY HOSPITAL ADMISSION. RN/GEAR FINISHER/POST OFFICE MARKUP CLERK TO MONITOR CO-MORBID CONDITIONS LISTED ON THE PLAN OF CARE AND ANY NEW CONDITIONS THAT PRESENT THEMSELVES DURING THIS EPISODE TO IDENTIFY CHANGES AND INTERVENE TO MINIMIZE COMPLICATIONS. [code = RN TO OBSERVE, ASSESS, EVALUATE, AND DEVELOP AN INDIVIDUALIZED PLAN OF CARE. AGENCY MAY ACCEPT ORDERS FROM CONSULTING PHYSICIANS RORY MEJIA NP RN TO OBSERVE AND ASSESS, GEAR FINISHER/POST OFFICE MARKUP CLERK TO OBSERVE FOR RISK FOR FALLS AND INSTRUCT IN FALL PREVENTION, HOME SAFETY, MEDICATION MANAGEMENT, INFECTION PREVENTION, AND NUTRITION MANAGEMENT. RN/GEAR FINISHER/POST OFFICE MARKUP CLERK NURSE MAY PERFORM O2 SATURATION LEVEL ON ADMISSION AND PRN FOR RN TO ASSESS/GEAR FINISHER TO OBSERVE PATIENT, WITH NOTIFICATION TO THE PHYSICIAN IF SATURATION IS 90% IN THE ABSENCE OF MORE SPECIFIC PARAMETERS FROM THE PHYSICIAN. AGENCY MAY PERFORM A RESUMPTION OF CARE VISIT FOLLOWING ANY HOSPITAL ADMISSION. RN/GEAR FINISHER/POST OFFICE MARKUP CLERK TO MONITOR CO-MORBID CONDITIONS LISTED ON THE PLAN OF CARE AND ANY NEW CONDITIONS THAT PRESENT THEMSELVES DURING THIS EPISODE TO IDENTIFY CHANGES AND INTERVENE TO MINIMIZE COMPLICATIONS.] Future Scheduled Test RISK FOR H OSPITALIZATION; RN TO ASSESS/TEACH, POST OFFICE MARKUP CLERK/GEAR FINISHER TO OBSERVE/TEACH PATIENT/CAREGIVER ON RISK FOR HOSPITALIZATION/EMERGENCY ROOM VISITS, TEACH SIGNS AND SYMPTOMS THAT PUT PATIENT AT RISK, WHEN TO NOTIFY NURSE/PHYSICIAN OF COMPLICATIONS/DECLINE, AND WHEN TO CALL 911. [code = RISK FOR HOSPITALIZATION; RN TO ASSESS/TEACH, POST OFFICE MARKUP CLERK/GEAR FINISHER TO OBSERVE/TEACH PATIENT/CAREGIVER ON RISK FOR HOSPITALIZATION/EMERGENCY ROOM VISITS, TEACH SIGNS AND SYMPTOMS THAT PUT PATIENT AT RISK, WHEN TO NOTIFY NURSE/PHYSICIAN OF COMPLICATIONS/DECLINE, AND WHEN TO CALL 911.] Future Scheduled Test MEDICATION MANAGEMENT; RN/GEAR FINISHER/POST OFFICE MARKUP CLERK TO REVIEW MEDICATIONS FOR INTERACTIONS, EFFECTIVENESS OF DRUG THERAPY, AND SIGNS/SYMPTOMS OF ADVERSE REACTIONS. MAY INSTRUCT AND REINFORCE MEDICATION TEACHING RELATED TO THE USE OF MEDICATIONS, DOSAGE, FREQUENCY, PURPOSE, SIDE EFFECTS, AND TO REPORT COMPLICATIONS. [code = MEDICATION MANAGEMENT; RN/GEAR FINISHER/POST OFFICE MARKUP CLERK TO REVIEW MEDICATIONS FOR INTERACTIONS, EFFECTIVENESS OF DRUG THERAPY, AND SIGNS/SYMPTOMS OF ADVERSE REACTIONS. MAY INSTRUCT AND REINFORCE MEDICATION TEACHING RELATED TO THE USE OF MEDICATIONS, DOSAGE, FREQUENCY, PURPOSE, SIDE EFFECTS, AND TO REPORT COMPLICATIONS.] Future Scheduled Test FALL REDUC TION MANAGEMENT; RN TO ASSESS AND OBSERVE, GEAR FINISHER/POST OFFICE MARKUP CLERK TO OBSERVE FALL RISK FACTORS AND EDUCATE PATIENT/CAREGIVER ON STRATEGIES TO MINIMIZE THE RISK OF FALLING. [code = FALL REDUCTION MANAGEMENT; RN TO ASSESS AND OBSERVE, GEAR FINISHER/POST OFFICE MARKUP CLERK TO OBSERVE FALL RISK FACTORS AND EDUCATE PATIENT/CAREGIVER ON STRATEGIES TO MINIMIZE THE RISK OF FALLING.] Future Scheduled Test PAIN MANAG EMENT; RN TO ASSESS AND TEACH, POST OFFICE MARKUP CLERK/GEAR FINISHER TO OBSERVE AND TEACH AND PROVIDE EDUCATION ON PAIN MANAGEMENT TECHNIQUES. [code = PAIN MANAGEMENT; RN TO ASSESS AND TEACH, POST OFFICE MARKUP CLERK/GEAR FINISHER TO OBSERVE AND TEACH AND PROVIDE EDUCATION ON PAIN MANAGEMENT TECHNIQUES.] Future Scheduled Test CARDIOVASC ULAR SYSTEM; RN TO ASSESS/TEACH, GEAR FINISHER/POST OFFICE MARKUP CLERK TO OBSERVE/TEACH RELATED TO ALTERED CARDIOVASCULAR STATUS TO MINIMIZE COMPLICATIONS AND REDUCE HOSPITALIZATION. [code = CARDIOVASCULAR SYSTEM; RN TO ASSESS/TEACH, GEAR FINISHER/POST OFFICE MARKUP CLERK TO OBSERVE/TEACH RELATED TO ALTERED CARDIOVASCULAR STATUS TO MINIMIZE COMPLICATIONS AND REDUCE HOSPITALIZATION.] Future Scheduled Test HYPERTENSI ON MANAGEMENT; RN TO ASSESS AND TEACH, GEAR FINISHER/POST OFFICE MARKUP CLERK TO OBSERVE AND TEACH WARNING SIGNS AND SYMPTOMS TO AVOID HOSPITALIZATION. [code = HYPERTENSION MANAGEMENT; RN TO ASSESS AND TEACH, GEAR FINISHER/POST OFFICE MARKUP CLERK TO OBSERVE AND TEACH WARNING SIGNS AND SYMPTOMS TO AVOID HOSPITALIZATION.] Future Scheduled Test ANEMIA MAN AGEMENT; RN TO ASSESS AND TEACH, POST OFFICE MARKUP CLERK/GEAR FINISHER TO OBSERVE AND TEACH AND PROVIDE EDUCATION ON ANEMIA. [code = ANEMIA MANAGEMENT; RN TO ASSESS AND TEACH, POST OFFICE MARKUP CLERK/GEAR FINISHER TO OBSERVE AND TEACH AND PROVIDE EDUCATION ON ANEMIA.] Future Scheduled Test GENITOURIN OSWALDO MANAGEMENT; RN TO ASSESS AND TEACH, GEAR FINISHER/POST OFFICE MARKUP CLERK TO OBSERVE AND TEACH RELATED TO ALTERED GENITOURINARY STATUS TO MINIMIZE COMPLICATIONS AND REDUCE HOSPITALIZATION. [code = GENITOURINARY MANAGEMENT; RN TO ASSESS AND TEACH, GEAR FINISHER/POST OFFICE MARKUP CLERK TO OBSERVE AND TEACH RELATED TO ALTERED GENITOURINARY STATUS TO MINIMIZE COMPLICATIONS AND REDUCE HOSPITALIZATION.] Future Scheduled Test URINARY CU LTURE AND SENSITIVITY PROTOCOL UP TO 2 PRN RN/GEAR FINISHER/POST OFFICE MARKUP CLERK VISITS MAY BE PERFORMED FOR S/S OF UTI. RN TO ASSESS, GEAR FINISHER/POST OFFICE MARKUP CLERK TO OBSERVE INITIATION OF UTI PROTOCOL. RN/POST OFFICE MARKUP CLERK/GEAR FINISHER TO INSTRUCT PATIENT AND/OR CAREGIVER ON S/S OF UTI TO REPORT TO RN/GEAR FINISHER/POST OFFICE MARKUP CLERK IF NEW OR WORSENING SYMPTOMS. DRINK PLENTY OF WATER THROUGHOUT THE DAY TO MAINTAIN HYDRATION (UNLESS CONTRAINDICATED.) URINATE WHEN THE URGE IS FELT, DO NOT WAIT. WASH GENITALS DAILY. WIPE FROM FRONT TO BACK AFTER HAVING A BOWEL MOVEMENT. RN/POST OFFICE MARKUP CLERK/GEAR FINISHER TO OBTAIN URINE SPECIMEN FOR UA WITH C/S VIA CLEAN CATCH URINE AND IF UNABLE TO OBTAIN MAY PERFORM AN IN AND OUT CATH. IF PATIENT HAS INDWELLING CATHETER MAY OBTAIN FROM SAMPLING PORT. NOTIFY PROVIDER OF RESULTS AND OBTAIN FURTHER ORDERS. [code = URINARY CULTURE AND SENSITIVITY PROTOCOL UP TO 2 PRN RN/GEAR FINISHER/POST OFFICE MARKUP CLERK VISITS MAY BE PERFORMED FOR S/S OF UTI. RN TO ASSESS, GEAR FINISHER/POST OFFICE MARKUP CLERK TO OBSERVE INITIATION OF UTI PROTOCOL. RN/POST OFFICE MARKUP CLERK/GEAR FINISHER TO INSTRUCT PATIENT AND/OR CAREGIVER ON S/S OF UTI TO REPORT TO RN/GEAR FINISHER/POST OFFICE MARKUP CLERK IF NEW OR WORSENING SYMPTOMS. DRINK PLENTY OF WATER THROUGHOUT THE DAY TO MAINTAIN HYDRATION (UNLESS CONTRAINDICATED.) URINATE WHEN THE URGE IS FELT, DO NOT WAIT. WASH GENITALS DAILY. WIPE FROM FRONT TO BACK AFTER HAVING A BOWEL MOVEMENT. RN/POST OFFICE MARKUP CLERK/GEAR FINISHER TO OBTAIN URINE SPECIMEN FOR UA WITH C/S VIA CLEAN CATCH URINE AND IF UNABLE TO OBTAIN MAY PERFORM AN IN AND OUT CATH. IF PATIENT HAS INDWELLING CATHETER MAY OBTAIN FROM SAMPLING PORT. NOTIFY PROVIDER OF RESULTS AND OBTAIN FURTHER ORDERS.] Future Scheduled Test URINARY TR ACT INFECTION MANAGEMENT; RN/POST OFFICE MARKUP CLERK/GEAR FINISHER TO PROVIDE SKILLED TEACHING AND SELF- CARE MANAGEMENT RELATED TO UTI TO MINIMIZE COMPLICATIONS AND REDUCE THE RISK OF HOSPITALIZATION. [code = URINARY TRACT INFECTION MANAGEMENT; RN/POST OFFICE MARKUP CLERK/GEAR FINISHER TO PROVIDE SKILLED TEACHING AND SELF- CARE MANAGEMENT RELATED TO UTI TO MINIMIZE COMPLICATIONS AND REDUCE THE RISK OF HOSPITALIZATION.] Future Scheduled Test OCCUPATION AL THERAPIST TO EVALUATE FOR ASSESS NEEDS FOR EDUCATION REGARDING ADLS PERFORMANCE AND SAFETY UPPER EXTREMITY STRENGTHENING INTO ACCESS COGNITIVE FOR SPEECH THERAPY NEEDS [code = OCCUPATIONAL THERAPIST TO EVALUATE FOR ASSESS NEEDS FOR EDUCATION REGARDING ADLS PERFORMANCE AND SAFETY UPPER EXTREMITY STRENGTHENING INTO ACCESS COGNITIVE FOR SPEECH THERAPY NEEDS] Future Scheduled Test PHYSICAL T HERAPIST TO EVALUATE FOR SERVICES AND INTERVENTIONS ARE NEEDED TO PROVIDE SKILL PROGRESSION OF EXERCISE TO IMPROVE STRENGTH , BALANCE AND ACTIVITY TOLERANCE SAFELY WELL TO WORK ON IMPROVING TRANSFERS AMBULATION AND TO GET OUTDOORS WITH TRAINING ON TECHNIQUES TO DEGREE FALL AND TO IMPROVE OVERALL MOBILITY. [code = PHYSICAL THERAPIST TO EVALUATE FOR SERVICES AND INTERVENTIONS ARE NEEDED TO PROVIDE SKILL PROGRESSION OF EXERCISE TO IMPROVE STRENGTH , BALANCE AND ACTIVITY TOLERANCE SAFELY WELL TO WORK ON IMPROVING TRANSFERS AMBULATION AND TO GET OUTDOORS WITH TRAINING ON TECHNIQUES TO DEGREE FALL AND TO IMPROVE OVERALL MOBILITY.] Future Scheduled Test COPD MONIT ORING RN/POST OFFICE MARKUP CLERK/GEAR FINISHER TO MONITOR FOR SIGNS AND SYMPTOMS OF COPD EXACERBATION, MONITOR FOR ADHERENCE TO MEDICATION AND COPD MANAGEMENT. [code = COPD MONITORING RN/POST OFFICE MARKUP CLERK/GEAR FINISHER TO MONITOR FOR SIGNS AND SYMPTOMS OF COPD EXACERBATION, MONITOR FOR ADHERENCE TO MEDICATION AND COPD MANAGEMENT.] Future Scheduled Test SKIN INTEG RITY RN TO ASSESS AND TEACH, GEAR FINISHER/POST OFFICE MARKUP CLERK TO OBSERVE AND TEACH INTEGUMENTARY STATUS TO IDENTIFY CHANGES AND INTERVENE TO MINIMIZE COMPLICATIONS. PROVIDE SKILLED TEACHING OF GENERAL WOUND AND SKIN CARE AND PREVENTION RELATED TO POTENTIAL FOR OR ACTUAL ALTERED SKIN INTEGRITY [code = SKIN INTEGRITY RN TO ASSESS AND TEACH, GEAR FINISHER/POST OFFICE MARKUP CLERK TO OBSERVE AND TEACH INTEGUMENTARY STATUS TO IDENTIFY CHANGES AND INTERVENE TO MINIMIZE COMPLICATIONS. PROVIDE SKILLED TEACHING OF GENERAL WOUND AND SKIN CARE AND PREVENTION RELATED TO POTENTIAL FOR OR ACTUAL ALTERED SKIN INTEGRITY] Goal Patient Goal - ENERGY TO COM E BACK Goal Provider Goal - A PLAN OF CARE WILL BE ESTABLISHED THAT MEETS THE PATIENT S NEEDS. PATIENT WILL DEMONSTRATE OXYGEN SATURATION WITHIN NORMAL LIMITS OR PATIENT S OPTIMAL LEVEL ESTABLISHED BY THE PHYSICIAN THROUGHOUT CARE. CHANGES TO CO-MORBID CONDITIONS AND ANY NEW CONDITIONS WILL BE IDENTIFIED AND REPORTED TO THE PHYSICIAN. Goal Provider Goal - PATIENT/CAREGIVER WILL VERBALIZE UNDERSTANDING OF SIGNS AND SYMPTOMS THAT PUT THE PATIENT AT RISK FOR HOSPITALIZATION /EMERGENCY ROOM VISITS, WHEN TO NOTIFY NURSE/PHYSICIAN OF COMPLICATIONS/DECLINE AND WHEN TO CALL 911. Goal Provider Goal - PATIENT/CAREGIVER TO VERBALIZE, AND CONSISTENTLY DEMONSTRATE EFFECTIVE, SAFE MANAGEMENT OF MEDICATION INCLUDING KNOWLEDGE OF EFFECTIVENESS, POTENTIAL SIDE EFFECTS AND DRUG REACTIONS AND WHEN TO CONTACT THE APPROPRIATE CARE PROVIDER. PATIENT/CAREGIVER WILL BE ABLE TO VERBALIZE UNDERSTANDING OF MEDICATION REGIMEN AND ACCURATELY TAKE MEDICATIONS PRESCRIBED WITHOUT ADVERSE EFFECTS BY EOE Goal Provider Goal - PATIENT/CAREGIVER WILL VERBALIZE/DEMONSTRATE UNDERSTANDING OF FALL RISK FACTORS AND IMPLEMENT STRATEGIES TO MINIMIZE FALL RISK. PATIENT/CAREGIVER WILL VERBALIZE/DEMONSTRATE AN ABILITY TO ADHERE TO FALL REDUCTION SELF-MANAGEMENT AND LIFE-STYLE CHANGES BY EOE Goal Provider Goal - PATIENT / CAREGIVER WILL VERBALIZE / DEMONSTRATE UNDERSTANDING OF PAIN CONTROL MEASURES BY EOE Goal Provider Goal - PATIENT / CAREGIVER WILL VERBALIZE/DEMONSTRATE UNDERSTANDING OF MEASURES TO MANAGE ALTERED CARDIOVASCULAR STATUS BY EOE Goal Provider Goal - PATIENT / CAREGIVER WILL VERBALIZE/DEMONSTRATE AN ABILITY TO ADHERE TO SELF-MANAGEMENT OF HTN TO MINIMIZE COMPLICATIONS AND AVOID HOSPITALIZATION BY END OF EPISODE. Goal Provider Goal - PATIENT/CAREGIVER WILL VERBALIZE UNDERSTANDING OF CARE AND MANAGEMENT OF ANEMIA BY END OF EPISODE. Goal Provider Goal - PATIENT / CAREGIVER WILL VERBALIZE/DEMONSTRATE UNDERSTANDING OF MEASURES TO MANAGE ALTERED GENITOURINARY STATUS BY END OF EPISODE. Goal Provider Goal - PATIENT WILL DEMONSTRATE IMPROVEMENT IN S/S OF UTI TO AVOID HOSPITALIZATION. Goal Provider Goal - PATIENT/CAREGIVER WILL VERBALIZE/DEMONSTRATE UNDERSTANDING OF CARE AND MANAGEMENT OF URINARY TRACT INFECTION BY EOE Goal Provider Goal - Goal Provider Goal - Goal Provider Goal - COPD WILL BE CONTROLLED THROUGHOUT THE EPISODE. Goal Provider Goal - CHANGES IN SKIN INTEGRITY STATUS WILL BE IDENTIFIED AND REPORTED TO THE PHYSICIAN FOR PROMPT INTERVENTION. PATIENT / CAREGIVER WILL VERBALIZE/DEMONSTRATE ADEQUATE KNOWLEDGE OF INTEGUMENTARY STATUS AND APPROPRIATE MEASURES TO PROMOTE SKIN INTEGRITY AND PREVENT INJURY BY EOE Progress Notes Progress Notes <paragraph>[Visit Date: 2024 by SUPA PORTILLO RN]:</paragraph><paragraph>SN IN HOME FOR ADMISSION ASSESSMENT AND EDUCATION REGARDING DISEASE PROCESS AND MEDICATION MANAGEMENT PT IS AN 80 YO F WHO IS RECENTLY SEEN AT HER PRIMARY CARE DOCTOR PATIENT HAS HAD MULTIPLE FALLS AT HOME PATIENT WAS ALSO DIAGNOSED WITH A UTI. PATIENT USES A WALKER FOR AMBULATION WITH EXTREME DIFFICULTY. 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 PATIENT IS ALERT WITH NOTED CONFUSION AND FORGETFULNESS AT TIMES LCTA HRRR BS ACTIVE X4 QUADS </paragraph><paragraph></paragraph><paragraph>PATIENT IS DUE TO HAVE LAB WORK AND CT SCAN DONE ON MONDAY DUE TO THE POSSIBILITY OF COMPRESSION FRACTURES IN LOWER BACK. PT IS ALSO GETTING LAB WORK COMPLETED DUE TO ELEVATED A1C AT LAST CHECK</paragraph><paragraph></paragraph><paragraph>PATIENT WAS EDUCATED REGARDING PLAN OF CARE.SHE VERBALIZED, UNDERSTANDING MEDICATIONS WERE CONCILIATED.NO CONCERNS AT THIS TIME, PATIENT WAS EDUCATED ON WHEN TO NOTIFY [facility] OR 911 FOR ASSISTANCE.SHE VERBALIZED , UNDERSTANDING PATIENT WAS ALSO GIVEN INFORMATION ON HOW TO CONTACT HOME HEALTH FOR NEEDS AND CONCERNS</paragraph> Encounters Start Date/Time End Date/Time Encounter Type Admission Type Attending [facility] Facility Care Department Encounter ID Discharge Date Discharge Status Discharge Condition Discharge Reason Percent Goals Met 2025-08-02 00:00:00 2025-09-30 00:00:00 Outpatient LÓPEZ Galaviz [facility] [id number]
== END 2025-08-04 23:59 | disposition home or self-care (01) ==
LOC: RAD 10:45
PROVIDERS: PCP Nurse Practitioner; Visit Provider Nurse Practitioner
DX: S22.070D Wedge compression fracture of T9-T10 vertebra, subsequent encounter for fracture with routine healing (principal); S22.080D Wedge compression fracture of T11-T12 vertebra, subsequent encounter for fracture with routine healing; R79.89 Other specified abnormal findings of blood chemistry; R26.2 Difficulty in walking, not elsewhere classified; R53.1 Weakness; R73.9 Hyperglycemia, unspecified; W19.XXXA Unspecified fall, initial encounter
CPT/HCPCS: 36415; 70460; 71275; 72128; 82947; 83036; Q9967